=== PATIENT | male | born 1965 | race Caucasian/White ===

== ENCOUNTER 2017-06-07 05:24 | Emergency (ER) | payer OTHER ==
[~2017-06-07] VITALS: Ht 175.3 cm; Wt 94.8 kg
[~2017-06-07 05:24] MED LIST: ALBUTEROL SULF8.5 GM INH; ASPIRIN EC81 MG PO; CARVEDILOL12.5 MG; CARVEDILOL6.25 MG PO; COZAAR50 MG PO; HYDRALAZINE HCL10 MG; HYDROCHLOROTH12.5 M1 PO; IBUPROFEN400 MG PO; LISINOPRIL-HCT1 EACH PO; LISINOPRIL40 MG; LISINOPRIL5 MG PO; NORCO 5-325 TA1 EACH PO; NORVASC2.5 MG PO; OMEPRAZOLE20 MG PO; PREDNISONE20 MG PO; SPIRONOLACTONE50 MG PO; TESSALON PERLE100 MG PO
[2017-06-07] MEDS ORDERED: COZAAR50 MG PO (05:44)
[2017-06-07] MEDS ORDERED: NORVASC5 MG PO (05:45)
[2017-06-07] MEDS ORDERED: OMEPRAZOLE20 MG PO (05:46)
[2017-06-07] MEDS ORDERED: CARVEDILOL12.5 MG PO (05:46)
[2017-06-07] MEDS ORDERED: HYDRALAZINE HCL25 MG PO (05:46)
--- NOTE | 2017-06-07 12:35 | EKG ---
[facility] [address] [facility] [place] [address] Signed Normal sinus rhythm Left axis deviation Possible Anterior infarct , age undetermined Abnormal ECG No previous ECGs available Confirmed by KRISHNA SALOMON MD ([id number]) on 06/07/2017 12:35:50 PM Electronically Signed By: KRISHNA SALOMON MD 06/07/17 1235 PATIENT NAME: ALINE DUKE RO Electrocardiogram DATE OF : 61 PHYSICIAN: KRISHNA SALOMON MD REPORT #: [id number] REPORT IS CONFIDENTIAL AND NOT TO BE RELEASED WITHOUT AUTHORIZATION
== END 2017-06-07 07:57 | disposition home or self-care (01) ==
LOC: ED 05:24
DX: R55 Syncope and collapse (principal); R42 Dizziness and giddiness; F10.20 Alcohol dependence, uncomplicated; I10 Essential (primary) hypertension; Z87.891 Personal history of nicotine dependence; Z79.899 Other long term (current) drug therapy
CPT/HCPCS: 70450; 80053; 84484; 85025; 93005; 93010; 99284; G0480

== ENCOUNTER 2017-10-08 12:19 | Emergency (ER) | payer OTHER ==
[~2017-10-08] VITALS: Ht 175.3 cm; Wt 93.4 kg
[~2017-10-08 12:19] MED LIST changes: +CARVEDILOL12.5 MG PO; +HYDRALAZINE HCL25 MG PO; +NORVASC5 MG PO
[2017-10-08] MEDS ORDERED: KETOROLAC TROME10 MG PO (13:34)
== END 2017-10-08 13:51 | disposition home or self-care (01) ==
LOC: ED 12:19
DX: S63.91XA Sprain of unspecified part of right wrist and hand, initial encounter (principal); I10 Essential (primary) hypertension; Z86.73 Personal history of transient ischemic attack (TIA), and cerebral infarction without residual deficits; Z79.899 Other long term (current) drug therapy; W01.0XXA Fall on same level from slipping, tripping and stumbling without subsequent striking against object, initial encounter
CPT/HCPCS: 73130; 99283

== ENCOUNTER → 2018-11-02 | Emergency (ER) | payer OTHER ==
[~2018-11-02] VITALS: Ht 175.3 cm; Wt 86.2 kg
[~2018-11-02] MED LIST changes: +KETOROLAC TROME10 MG PO
--- NOTE | 2018-11-02 18:38 | EKG ---
[facility] [address] [facility] [place] [address] Signed Atrial fibrillation with rapid ventricular response Left axis deviation Anterior infarct (cited on or before 07-JUN-2017) Abnormal ECG When compared with ECG of 07-JUN-2017 05:40, Atrial fibrillation has replaced Sinus rhythm Vent. rate has increased BY 92 BPM Questionable change in initial forces of Anterior leads Nonspecific T wave abnormality, worse in Lateral leads Confirmed by DAVID GARCIA MD ([id number]) on 11/02/2018 6:38:13 PM Electronically Signed By: DAVID GARCIA MD 11/02/18 1838 PATIENT NAME: ALINE DUKE Electrocardiogram DATE OF : 61 PHYSICIAN: DAVID GARCIA MD REPORT #: [id number] REPORT IS CONFIDENTIAL AND NOT TO BE RELEASED WITHOUT AUTHORIZATION
--- NOTE | 2018-11-02 18:38 | EKG ---
[facility] [address] [facility] [place] [address] Signed Atrial fibrillation with rapid ventricular response Left axis deviation Anterior infarct (cited on or before 07-JUN-2017) T wave abnormality, consider lateral ischemia Abnormal ECG When compared with ECG of 02-NOV-2018 08:11, (Unconfirmed) Nonspecific T wave abnormality now evident in Inferior leads T wave inversion now evident in Anterior leads Confirmed by DAVID GARCIA MD ([id number]) on 11/02/2018 6:38:27 PM Electronically Signed By: DAVID GARCIA MD 11/02/18 1838 PATIENT NAME: ALINE DUKE Electrocardiogram DATE OF : 61 PHYSICIAN: DAVID GARCIA MD REPORT #: [id number] REPORT IS CONFIDENTIAL AND NOT TO BE RELEASED WITHOUT AUTHORIZATION
== END ==
LOC: ED 07:58
DX: I48.91 Unspecified atrial fibrillation (principal); I10 Essential (primary) hypertension; Z86.73 Personal history of transient ischemic attack (TIA), and cerebral infarction without residual deficits; Z79.899 Other long term (current) drug therapy
CPT/HCPCS: 71045; 71260; 74177; 76705; 80053; 81001; 83735; 83880; 84484; 85025; 85379; 93005; 93010; 96361; 99285-25; J2270; J3475; J7120; Q9967

== ENCOUNTER 2018-11-24 17:34 | Emergency (ER) | payer OTHER ==
[~2018-11-24] VITALS: Ht 175.3 cm; Wt 77.1 kg
--- OUTSIDE RECORDS SUMMARY | ~2018-11-24 | XMS | Encounter Summary ---
Demographics + + + | Address | [address] | | | [place] [address] | + + + | Home Phone | | + + + | Preferred Language | Unknown | + + + | Marital Status | Unknown | + + + | Sikhism Affiliation | Unknown | + + + | Race | Unknown | + + + | Ethnic Group | Unknown | + + + Author + + + | Author | [employer] [facility] | + + + | Organization | [facility] | + + + | Address | Unknown | + + + | Phone | Unavailable | + + + Support + + +---------+ + | Name | Relationship | Address | Phone | + + +---------+ + | Message,Detailed | ECON | Unknown | | + + +---------+ + | Taurus Salinas | ECON | Unknown | | + + +---------+ + Care Team Providers + +------+ + | Care Engineering Lab Technician Name | Role | Phone | + +------+ + | Daisy Jane PA-C | PCP | | + +------+ + Reason for Visit +--------+ + | Reason | Comments | +--------+ + | Other | PCP chart notes | +--------+ + Encounter Details +--------+ + + + + | Date | Type | Department | Care Team | Description | +--------+ + + + + | 11/18/ | Documentati | [facility] | Ata Adriane | Other (PCP chart | | 2019 | on Only | Sonu Jules CMA | notes) | | | | [address] | | | | | | [place] | | | | | | [address] | | | | | | [phone] | | | +--------+ + + + + Social History + +-------+ +--------+ + | Tobacco Use | Types | Packs/Day | Years | Date | | | | | Used | | + +-------+ +--------+ + | Former Smoker | | | | Quit: 06/01/2010 | + +-------+ +--------+ + + +---+---+---+ | Smokeless Tobacco: | | | | | Never Used | | | | + +---+---+---+ + + +---------+ + | Alcohol Use | Drinks/We | oz/Week | Comments | | | ek | | | + + +---------+ + | Yes | | | whisky 5th daily | + + +---------+ + + + + | Sex Assigned at | Date Recorded | | | | + + + | Not on file | | + + + as of this encounter Plan of Treatment +--------+---------+ + + + | Date | Type | Specialty | Care Team | Description | +--------+---------+ + + + | 12/25/ | Office | Cardiology | Gabe Conrad, | | | 2019 | Visit | | MD Carla Nichols | | | | | | Dr [place], | | | | | | [place] [address] | | | | | | [phone] | | | | | | | | +--------+---------+ + + + as of this encounter Visit Diagnoses Not on filein this encounter"
--- OUTSIDE RECORDS SUMMARY | ~2018-11-24 | XMS | Encounter Summary ---
Demographics + + + | Address | [address] | | | [place] [address] | + + + | Home Phone | | + + + | Preferred Language | Unknown | + + + | Marital Status | Unknown | + + + | Jainism Affiliation | Unknown | + + + | Race | Unknown | + + + | Ethnic Group | Unknown | + + + Author + + + | Author | [employer] [facility] | + + + | Organization | [facility] | + + + | Address | [...] Team Providers + +------+ + | Care African Studies Professor Name | Role | Phone | + [...] [place] | | | | | | [address] | | | | | | [phone] | | | +--------+ + + + [...] [place], | | | | | | [place] [address] | | | | | | [phone] | | | | | | | | +--------+---------+ + + + as of this encounter Visit Diagnoses Not on filein this encounter"
--- OUTSIDE RECORDS SUMMARY | ~2018-11-24 | XMS | Encounter Summary ---
Demographics + + + | Address | [address] | | | [place] [address] | + + + | Home Phone | | + + + | Preferred Language | Unknown | + + + | Marital Status | Unknown | + + + | Mandaeism Affiliation | Unknown | + + + | Race | Unknown | + + + | Ethnic Group | Unknown | + + + Author + + + | Author | [facility] | + + + | Organization | [facility] | + + + | Address | [...] Team Providers + +------+ + | Care Sales Representative Leather Goods Name | Role | Phone | + +------+ + | Mykel Hernandez DO | PCP | | + +------+ + Reason for Referral Consult and Treat (Routine) + + + + + + + | Status | Reason | Specialty | Diagnoses / | Referred By | Referred To | | | | | Procedures | Contact | Contact | + + + + + + + | Authorized | Specialty | Cardiology | Diagnoses | Maddie, | [facility] | | | Services | | Cardiogenic | Betty Greenwood MD | MD Gabe | | | Required | | shock (HCC) | [address] | [address] | | | | | [address] | Dr [address]awad [address] | | | | | | [place], [place] | [place], [place] | | | | | | [address] | [address] Phone: | | | | | | Phone: | [phone] | | | | | | [phone] | Fax: | | | | | | Fax: | [phone] | | | | | | [phone] | | + + + + + + + Reason for Visit Auth/Cert +--------+--------+ + + + + | Status | Reason | Specialty | Diagnoses / | Referred By | Referred To | | | | | Procedures | Contact | Contact | +--------+--------+ + + + + | | | Intensive | Diagnoses | | [facility] | | | | Care | Cardiogenic | | [place] | | | | | shock | | [facility] [address] | | | | | | | [place], [place] | | | | | | | [address] Phone: | | | | | | | [phone] | | | | | | | Fax: | | | | | | | [phone] | +--------+--------+ + + + + Encounter Details +--------+ + + + + | Date | Type | Department | Care Team | Description | +--------+ + + + + | 11/03/ | Hospital | [facility] | Dony Verma MD | Cardiogenic shock | | 2019 - | Encounter | [facility] | [address] | ([facility]) (Primary Dx) | | | | [address] | [place] [address] | | | 11/07/ | | [address] | [phone] | | | 2019 | | [place] [address] | | | | | | [phone] | Betty Perkins MD | | | | | | [address] | | | | | | [place] [address] | | | | | | [phone] | | | | | | | [...] + + + as of this encounter Last Filed Vital Signs + + + + | Vital Sign | Reading | Time Taken | + + + + | Blood Pressure | 129/98 | 11/07/2018 11:15 AM PST | + + + + | Pulse | 100 | 11/07/2018 11:15 AM PST | + + + + | Temperature | 37 C (98.6 F) | 11/07/2018 11:15 AM PST | + + + + | Respiratory Rate | 18 | 11/07/2018 11:15 AM PST | + + + + | Oxygen Saturation | 95% | 11/07/2018 11:15 AM PST | + + + + | Inhaled Oxygen | - | - | | Concentration | | | + + + + | Weight | 90.8 kg (200 lb 1.6 | 11/05/2018 2:10 PM PST | | | oz) | | + + + + | Height | 175.3 cm (5' 9") | 11/05/2018 2:10 PM PST | + + + + | Body Mass Index | 29.55 | 11/05/2018 2:10 PM PST | + + + + in this encounter Discharge Summaries Betty Perkins MD - 11/07/2018 5:19 AM PSTFormatting of this note may be different from the original. [facility] Service: Hospitalist Physician Discharge Summary Patient ID: [...] Hospital Course: From HPI Per ICU Ellie MCBRIDEP 11/03/18 The patient is a 53 y.o.malewith significant past medical history of COPD, HTN, CVA, al cohol abuse (historically, was drinking a fifth of hard liquor per day, but [facility] docum entation indicates he quit years ago),and methamphetamine abusewho presents in transfer from [facility] where he was being treated for new onset atrial fibrillation andcardiogeni c shock. He originally presented to the hospital in [place] after waking up on the morni ng of 11/02 with severe epigastric pain radiating up his chest. He c/o nausea, but denied vo miting. In [place], he was found to be in Afib with RVR, and was given a cardizem bolus. Troponin was minimally elevated at this time, and he was hemodynamically stable. He was transferred to [facility] in [place] due to the need for cardiology consult. His epig astric pain had resolved at that time, and patient's rate was controlled but remained in atr ial fib. After transfer to [facility], patient remained on the cardizem drip. A [...] not previously known. Cardiogenic shock, developed at [facility] on the afternoon of 11/03/18 after being on Cardizem. Patient had to be briefly paced due t o symptomatic bradycardia with rate down to the 30s. Patient was started on dopamine, nore pinephrine, and later added epinephrine. The thread singer service at [facility] was consulted, and the patient was transferred [...] have an EF of 20% while at [facility]. Echo here showed EF 20-25% -Cardiogenic shock [...] -Continue aspirin. -Lipid panel was checked at [facility] - all values normal. Essential hypertension Antihypertensives were restarted with the exception of Norvasc. Thoracic aortic aneurysm without rupture. Monitor COPD/ panlobular emphysema. - Not in acute exacerbation. - Albuterol PRN wheezing. - History of tobacco use - documentation from [facility] states he quit years ago. Epigastric pain [...] days- first dose received on 11/03 at [facility] . Procalci tonin was normal Remained afebrile. [...] lobe of the liver. Signed by: MD Jenifer, Dr. Evans Sign Date/Time: 11/04/2018 3:04 AM [...] Motor grossly intact. LABS: Recent Labs Lab 11/07/1831211/06/188 11/05/186 WBC 6.70 6.32 8.02 RBC 4.42 4.18* 4.32 HGB 14.4 13.7 14.4 HCT 44.5 41.9 43.2 MCV 100.7* 100.2* 100.0 MCH 32.5 32.7 33.3 MCHC 32.3 32.7 33.3 RDW 52.5 52.9 51.6 PLT 212 189 189 MPV 9.5 8.9 8.7 DIFFTYPE AUTOMATED AUTOMATED AUTOMATED Recent Labs Lab 11/07/1831211/06/188 11/05/18 0907 11/05/18 0416 NA 142 138 [...] 0416 MG 1.9 2.1 2.2 Invalid input(s): BEBETO Disposition: Follow up: Mykel Hernandez, [address] [place] [address] In 3 days [facility] [address] [place] [facility] [address] In 4 days Medication List START [...] Your Medications These medications were sent to [id number] - [place], [place] - [address] [id number] losartan 25 MG tablet spironolactone 25 MG tablet Betty Perkins MD 11/07/2018 1:58 PM Discharge took>30 minutes, to include final examination, discussion of admission, and pre paration of prescriptions, instructions for ongoing care, follow up and dictation of summary . in this encounter Medications at Time of Discharge + + +--------+---------+ + + | Medication | Sig. | Disp. | Refills | Start | End Date | | | | | | Date | | + + +--------+---------+ + + | aspirin 81 MG | Take 81 mg by mouth | | | | | | tablet | daily. | | | | | + + +--------+---------+ + + | | Take 3 mLs by | | | | | | ipratropium-albutero | nebulization as | | | | | | l (DUO-NEB) 0.5-2.5 | needed. | | | | | | mg/3mL | | | | | | + + +--------+---------+ + + | omeprazole | Take 20 mg by mouth | | | | | | (PRILOSEC) 20 MG EC | before breafast. | | | | | | tablet | | | | | | + + +--------+---------+ + + | spironolactone | Take 1 tablet by | 30 | 11 | 11/09/19 | | | (ALDACTONE) 25 MG | mouth daily. | tablet | | 19 | 0 | | tablet | | | | | | + + +--------+---------+ + + | carvedilol (COREG) | Take 12.5 mg by | | | | | | 25 MG tablet | mouth 2 (two) times | | | | 9 | | | daily with meals. | | | | | + + +--------+---------+ + + | losartan (COZAAR) | Take 1 tablet by | 30 | 11 | 11/08/19 | | | 25 MG tablet | mouth daily. | tablet | | 19 | 9 | + + +--------+---------+ + + as of this encounter Progress Notes Samm Auguste RN - 11/07/2018 2:24 PM PSTDC instructions discussed with Pt, with empasis on drug/ETOH cessation and cardiology follow up. PICC line DC'd. Pt waiting for ride home. P t will be transported by friend. JASON BANKS Ken, RN - 11/06/2018 6:44 PM PSTPt disappointed that he wasn't DC'd today. Pt stat ed that he was leaving tomorrow regardless. ordered an Echo today, but small engine technician's sched ule was full, and was unable to see Pt today. They said that they would try to see Pt in a. m. No acute changes in Pt's status today. Chart check done. JASON BANKS Dawn M, MD - 11/06/2018 5:33 AM PSTFormatting of this note may be different from the original. [facility] Service: Hospitalist Progress Note Hospital Day: LOS: 3 days SUBJECTIVE Patient Summary: From HPI Per ICU Ellie Ky WILLEM 11/03/18 The patient is a 53 y.o. male with significant past medical history of COPD, HTN, CVA, alco hol abuse (historically, was drinking a fifth of hard liquor per day, but [facility] documen tation indicates he quit years ago), and methamphetamine abuse who presents in transfer from [facility] where he was being treated for new onset atrial fibrillation and cardiogenic ирина ck. He originally presented to the hospital in [place] after waking up on the morning of 11/02 with severe epigastric pain radiating up his chest. He c/o nausea, but denied vomiting. In [place], he was found to be in Afib with RVR, and was given a cardizem bolus. Tropon in was minimally elevated at this time, and he was hemodynamically stable. He was transferr ed to [facility] in [place] due to the need for cardiology consult. His epigastric pain had resolved at that time, and patient's rate was controlled but remained in atrial fib. After transfer to [facility], patient remained on the cardizem drip. A [...] not previously known. Cardiogenic shock, developed at [facility] on t he afternoon of 11/03/18 after being on Cardizem. Patient had to be briefly paced due to symp tomatic bradycardia with rate down to the 30s. Patient was started on dopamine, norepinephr ine, and later added epinephrine. The thread singer service at [facility] was consulted, and the patient was transferred [...] and vitals reviewed. DATA Recent Labs Lab 11/06/1840711/05/186 11/04/18 0410 WBC 6.32 8.02 12.24* RBC 4.18* 4.32 4.57 HGB 13.7 14.4 14.9 HCT 41.9 43.2 45.9 MCV 100.2* 100.0 100.4* MCH 32.7 33.3 32.7 MCHC 32.7 33.3 32.5 RDW 52.9 51.6 53.8* PLT 189 189 245 MPV 8.9 8.7 9.0 DIFFTYPE AUTOMATED AUTOMATED AUTOMATED Recent Labs Lab 11/06/1840711/05/18 0907 11/05/1841511/04/18 0410 NA 138 -- 138 137 K [...] CKMBINDEX 6.8 7.2 7.5 Recent Labs Lab 11/06/1840711/05/18 0416 11/04/18 0410 PHOS 3.1 3.4 5.7* Recent Labs Lab 11/06/1840711/05/18 0416 11/04/18 0743 MG 2.1 2.2 2.4 [...] lobe of the liver. Signed by: MD Jenifer, Dr. Evans Sign Date/Time: 11/04/2018 3:04 AM [...] have an EF of 20% while at [facility], so Cardizem was stopped. -Cardiogenic shock - developed in the setting of calcium channel jenise use in pt with unr ecognized cardiomyopathy. Resolved. -Weaned off epinephrine and levophed on 11/04. -Patient was intubated for airway protection in the setting of cardiogenic shock. Extubate d on 11/04. Cardiac Diet Coronary artery disease. -Continue aspirin. -Lipid panel was checked at [facility] - all values normal. Essential hypertension Antihypertensives were restarted - amlodipine, carvedilol, losartan. Thoracic aortic aneurysm without rupture. Monitor COPD/ panlobular emphysema. - Not in acute exacerbation. - Albuterol PRN wheezing. - History of tobacco use - documentation from [facility] states he quit years ago. Epigastric pain [...] - first dose received on 11/03 at [facility] - stop date 11/07. Procalcit onin was slightly elevated, will recheck Remains afebrile. Recheck Chest xray Blood cultures in process--showing no growth. Disposition: Code Status: Full Code Betty Perkins MD 11/06/2018 5:33 AM Betty Perkins MD - 11/05/2018 8:55 AM PSTFormatting of this note may be different from the original. [facility] Service: Hospitalist Progress Note Hospital Day: LOS: 2 days SUBJECTIVE Patient Summary: From HPI Per ICU Ellie Mcpherson WILLEM 11/03/18 The patient is a 53 y.o. male with significant past medical history of COPD, HTN, CVA, alco hol abuse (historically, was drinking a fifth of hard liquor per day, but [facility] documen tation indicates he quit years ago), and methamphetamine abuse who presents in transfer from [facility] where he was being treated for new onset atrial fibrillation and cardiogenic ирина ck. He originally presented to the hospital in [place] after waking up on the morning of 11/02 with severe epigastric pain radiating up his chest. He c/o nausea, but denied vomiting. In [place], he was found to be in Afib with RVR, and was given a cardizem bolus. Tropon in was minimally elevated at this time, and he was hemodynamically stable. He was transferr ed to [facility] in [place] due to the need for cardiology consult. His epigastric pain had resolved at that time, and patient's rate was controlled but remained in atrial fib. After transfer to [facility], patient remained on the cardizem drip. A [...] not previously known. Cardiogenic shock, developed at [facility] on t afternoon of 11/03/18 after being on Cardizem. Patient had to be briefly paced due to symp tomatic bradycardia with rate down to the 30s. Patient was started on dopamine, norepinephr ine, and later added epinephrine. The thread singer service at [facility] was consulted, and the patient was transferred [...] C) - 110 21 92 % - 11/04/182029 - 98.1 F (36.7 C) - 123 19 95 % - 11/04/181999 (!) 148/121 97.9 F (36.6 C) Bladder 116 23 95 % - 11/04/18 1945 (!) 121/97 97.7 F (36.5 C) - [...] DIFFTYPE AUTOMATED AUTOMATED Recent Labs Lab 11/05/18 0416 11/04/18 0410 11/04/18 0112 NA 138 137 138 [...] 0410 PHOS 3.4 5.7* Recent Labs Lab 11/05/18 0416 11/04/18 0743 11/04/18 0410 MG 2.2 2.4 [...] lobe of the liver. Signed by: MD Jenifer, Dr. Evans Sign Date/Time: 11/04/2018 3:04 AM [...] an EF of 20% whil e at [facility], so Cardizem was stopped. Cardiogenic shock - developed in the setting of calcium channel jenise use in pt with u nrecognized cardiomyopathy. Resolving. Weaned off epinephrine and levophed on 11/04. Coronary artery disease. Continue aspirin. Lipid panel was checked at [facility] - all values normal. Essential hypertension. Antihypertensives were restarted - amlodipine, carvedilol, losa rtan. Thoracic aortic aneurysm without rupture. PULM: Patient was intubated for airway protection in the setting of cardiogenic shock. Extuba rao on 11/04. COPD/ panlobular emphysema. Albuterol PRN wheezing. History of tobacco use - documentation from [facility] states he quit years ago. GI/NUTRITION: Epigastric [...] first dose receive d on 11/03 at [facility] - stop date 11/07. Procalcitonin slightly elevated. Remains afebrile. Blood cultures in process. HEME: No anemia or thrombocytopenia. CBC daily. ENDO: TSH normal at [facility]. Implement Endotool if indicated per ICU protocol. MUSC/SKIN: PT/OT/mobilize patient as able. Skin care and pressure ulcer prevention per nursing standards. PROPHYLAXIS: Stress ulcer prophylaxis: no longer indicated DVT prophylaxis: enoxaparin, SCDs VAP bundle: no longer indicated Disposition: ICU plan of care as above. Disposition: Code Status: Full Code Betty Perkins MD 11/05/2018 8:55 AM Ellie Mcpherson, [facility] - 11/05/2018 1:06 AM PSTFormatting of this note may be differen t from the original. [facility] Estate Conservator Service Progress Note Taurus Domínguez 53 y.o. [...] fifth of hard liquor per day, but [facility] documen tation indicates he quit years ago), and methamphetamine abuse who presents in transfer from [facility] where he was being treated for new onset atrial fibrillation and cardiogenic ирина ck. He originally presented to the hospital in [place] after waking up on the morning of 11/02 with severe epigastric pain radiating up his chest. He c/o nausea, but denied vomiting. In [place], he was found to be in Afib with RVR, and was given a cardizem bolus. Tropon in was minimally elevated at this time, and he was hemodynamically stable. He was transferr ed to [facility] in [place] due to the need for cardiology consult. His epigastric pain had resolved at that time, and patient's rate was controlled but remained in atrial fib. After transfer to [facility], patient remained on the cardizem drip. A [...] not previously known. Cardiogenic shock, developed at [facility] on t afternoon of 11/03/18 after being on Cardizem. Patient had to be briefly paced due to symp tomatic bradycardia with rate down to the 30s. Patient was started on dopamine, norepinephr ine, and later added epinephrine. The thread singer service at [facility] was consulted, and the patient was transferred to our ICU for further management. ICU Timeline: 11/04: Pt admitted in transfer from [facility], in cardiogenic shock. Pressors weaned th roughout [...] Intake/Output Summary (Last 24 hours) at 11/05/18 0633 Last data filed at 11/05/18 0617 Gross [...] heels LINES/TUBES: RUE PICC line (11/03 at [facility]), PIVs DATA Recent Labs Lab 11/05/1841511/04/18409 WBC 8.02 12.24* RBC 4.32 4.57 HGB 14.4 14.9 HCT 43.2 45.9 MCV 100.0 100.4* MCH 33.3 32.7 MCHC 33.3 32.5 RDW 51.6 53.8* PLT 189 245 MPV 8.7 9.0 NEUTROABS 5.79 10.14* LYMPHSABS 1.17 0.86* MONOSABS 0.98* 1.19* BASOSABS 0.03 0.04 EOSABS 0.05 0.01 Recent Labs Lab 11/05/18 0416 11/04/18 0743 11/04/18 04111/04/18 0112 NA 138 -- 137 138 K [...] lobe of the liver. Signed by: MD Jenifer, Dr. Evans Sign Date/Time: 11/04/2018 3:04 AM [...] on presentation and mi ld troponin elevation. ? Remains in atrial fib, rate-controlled. Denies chest pain. ? Troponin trending down - likely elevated due to demand ischemia. ? Determine plan for long-term anticoagulation. Check liver function first. ? Consultation to cardiology. Will need repeat echo. Cardiomyopathy - appears to be a new diagnosis. Patient found to have an EF of 20% whil e at [facility], so Cardizem was stopped. Cardiogenic shock - developed in the setting of calcium channel jenise use in pt with u nrecognized cardiomyopathy. Resolving. Weaned off epinephrine and levophed on 11/04. Coronary artery disease. ? Continue aspirin. ? Lipid panel was checked at [facility] - all values normal. Essential hypertension. Antihypertensives were restarted - amlodipine, carvedilol, losa rtan. Thoracic aortic aneurysm without rupture. PULM: Patient was intubated for airway protection in the setting of cardiogenic shock. Extuba rao on 11/04. COPD/ panlobular emphysema. Albuterol PRN wheezing. History of tobacco use - documentation from [facility] states he quit years ago. GI/NUTRITION: Epigastric [...] first dose receive d on 11/03 at [facility] - stop date 11/07. Procalcitonin slightly elevated. Remains afebrile. Blood cultures in process. HEME: No anemia or thrombocytopenia. CBC daily. ENDO: TSH normal at [facility]. Implement Endotool if indicated per ICU protocol. MUSC/SKIN: PT/OT/mobilize patient as able. Skin care and pressure ulcer prevention per nursing standards. PROPHYLAXIS: Stress ulcer prophylaxis: no longer indicated DVT prophylaxis: enoxaparin, SCDs VAP bundle: no longer indicated Disposition: ICU plan of care as above. Code Status: Full Code *Please bill 45 minutes of critical care time spent evaluating the patient, reviewing the d deobrah and formulating a plan exclusive of all other procedures. Ellie Mcpherson, WILLEM 11/05/2018 Abigail Menjivar, DATA WAREHOUSING ARCHITECT - 11/04/2018 11:53 AM PSTPt alert and following commands prior to ext ubation. Passed SBT 06/07 .30, VC 1120 as well as leak test. Extubated to RA at 1128, tolerat ed well. Pt was able to say his name and no evidence of stridor post extubation.in this enco unter Plan of Treatment +--------+---------+ + + + | Date | Type | Specialty | Care Team | Description | +--------+---------+ + + + | 12/25/ | Office | Cardiology | Deepara Jensonia, | | | 2018 | Visit | | MD Carla Nichols | | | | | | Dr [address], | | | | | | [place] [address] | | | | | | [phone] | | | | | | | | +--------+---------+ + + + + +--------+ + + | Name | Priori | Associated Diagnoses | Order Schedule | | | ty | | | + +--------+ + + | Ambulatory referral to Cardiology | Routin | Cardiogenic shock | Ordered: 11/07/2018 | | | e | ([facility]) | | + +--------+ + + as of this encounter Procedures + +--------+ + + + | Procedure Name | Priori | Date/Time | Associated Diagnosis | Comments | | | ty | | | | + +--------+ + + + | ECHO CARDIAC ADULT | Routin | 11/07/2018 | | Results for this | | COMPLETE | e | 9:35 AM | | procedure are in the | | | | PST | | results section. | + +--------+ + + + | PROCALCITONIN | [facility] | 11/07/2018 | | Results for this | | | | 3:13 AM | | procedure are in the | | | | PST | | results section. | + +--------+ + + + | CBC W/AUTO DIFF | Routin | 11/07/2018 | | Results for this | | (REFLEX TO MANUAL) | e | 3:13 AM | | procedure are in the | | | | PST | | results section. | + +--------+ + + + | PHOSPHOROUS | [facility] | 11/07/2018 | | Results for this | | | | 3:13 AM | | procedure are in the | | | | PST | | results section. | + +--------+ + + + | MAGNESIUM | [facility] | 11/07/2018 | | Results for this | | | | 3:13 AM | | procedure are in the | | | | PST | | results section. | + +--------+ + + + | BASIC METABOLIC | [facility] | 11/07/2018 | | Results for this | | PANEL | | 3:13 AM | | procedure are in the | | | | PST | | results section. | + +--------+ + + + | EKG STANDARD 12 LEAD | Routin | 11/06/2018 | [...] + +--------+ + + + | CBC W/AUTO DIFF | Routin | 11/06/2018 | | Results for this | | (REFLEX TO MANUAL) | e | 4:08 AM | | procedure are in the | | | | PST | | results section. | + +--------+ + + + | PHOSPHOROUS | Routin | 11/06/2018 | | Results [...] | + +--------+ + + + | PROTIME-INR | Routin | 11/05/2018 | | Results for this | | | e | 9:07 AM | | procedure are in the | | | | PST | | results section. | + +--------+ + + + | POTASSIUM | STAT | 11/05/2018 | | Results for this | | | | 9:07 AM | | procedure are in the | | | | PST | | results section. | + +--------+ + + + | CBC W/AUTO DIFF | Routin | 11/05/2018 | | Results for this | | (REFLEX TO MANUAL) | e | 4:16 AM | | procedure are in the | | | | PST | | results section. | + +--------+ + + + | PHOSPHOROUS | Routin | 11/05/2018 | | Results [...] this | | METABOLIC PANEL | e - AM | 4:16 AM | | procedure are in the | | | | PST | | results section. | + +--------+ + + + | CK MB | Timed | 11/04/2018 | | Results for this | | | | 2:08 PM | | procedure are in the | | | | PST | | results section. | + +--------+ + + + | TROPONIN I | Timed | 11/04/2018 | | Results for this | | | | 2:08 PM | | procedure are in the | | | | PST | | results section. | + +--------+ + + + | CK | Timed | 11/04/2018 | | Results for this | | | | 2:08 PM | | procedure are in the | | | | PST | | results section. | + +--------+ + + + | CK MB | Timed | 11/04/2018 | | Results for this | | | | 7:43 AM | | procedure are in the | | | | PST | | results section. | + +--------+ + + + | TROPONIN I | Timed | 11/04/2018 | | Results for this | | | | 7:43 AM | | procedure are in the | | | | PST | | results section. | + +--------+ + + + | MAGNESIUM | STAT | 11/04/2018 | | Results for this | | | | 7:43 AM | | procedure are in the | | | | PST | | results section. | + +--------+ + + + | CK | Timed | 11/04/2018 | | Results for this | | | | 7:43 AM | | procedure are in the | | | | PST | | results section. | + +--------+ + + + | PROCALCITONIN | Routin | 11/04/2018 | | Results for this | | | e - AM | 4:10 AM | | procedure are in the | | | | PST | | results section. | + +--------+ + + + | CBC W/AUTO DIFF | Routin | 11/04/2018 | | Results for this | | (REFLEX TO MANUAL) | e | 4:10 AM | | procedure are in the | | | | PST | | results section. | + +--------+ + + + | PHOSPHOROUS | [facility] | 11/04/2018 | | Results for this | | | | 4:10 AM | | procedure are in the | | | | PST | | results section. | + +--------+ + + + | MAGNESIUM | [facility] | 11/04/2018 | | Results for this | | | | 4:10 AM | | procedure are in the | | | | PST | | results section. | + +--------+ + + + | BASIC METABOLIC | [facility] | 11/04/2018 | | Results for this | | PANEL | | 4:10 AM | | procedure are [...] + | XR CHEST 1 VIEW | STAT | 11/04/2018 | | Results for this | | | | 1:36 AM | | procedure are in the | | | | PST | | results section. | + +--------+ + + + | BLOOD CULTURE, SET 2 | STAT | 11/04/2018 | | Results for this | | | | 1:13 AM | | procedure are in the | | | | PST | | results section. | + +--------+ + + + | CK MB | [facility] | 11/04/2018 | | Results for this | | | | 1:12 AM | | procedure are in the | | | | PST | | results section. | + +--------+ + + + | TROPONIN I | [facility] | 11/04/2018 | | Results for this | | | | 1:12 AM | | procedure are in the | | | | PST | | results section. | + +--------+ + + + | BLOOD CULTURE, SET 1 | STAT | 11/04/2018 | | Results for this | | | | 1:12 AM | | procedure are in the | | | | PST | | results section. | + +--------+ + + + | LIPASE | [facility] | 11/04/2018 | | Results for this | | | | 1:12 AM | | procedure are in the | | | | PST | | results section. | + +--------+ + + + | LACTIC ACID, PLASMA | [facility] | 11/04/2018 | | Results for this | | | | 1:12 AM | | procedure are in the | | | | PST | | results section. | + +--------+ + + + | CK | [facility] | 11/04/2018 | | Results for this | | | | 1:12 AM | | procedure are in the | | | | PST | | results section. | + +--------+ + + + | AMYLASE | [facility] | 11/04/2018 | | Results for this | | | | 1:12 AM | | procedure are in the | | | | PST | | results section. | + +--------+ + + + | BASIC METABOLIC | [facility] | 11/04/2018 | | Results for this | | PANEL | | 1:12 AM | | procedure are in the | | | | PST | | results section. | + +--------+ + + + | MRSA BY PCR | Routin | 11/04/2018 | | Results for this | | | e | 12:13 AM | | procedure are in the | | | | PST | | results section. | + +--------+ + + + | POC ARTERIAL BLOOD | Routin | 11/03/2018 | | Results for this | | GAS | e | 11:43 PM | | procedure are in the | | | | PST | | results section. | + +--------+ + + + | POCT GLUCOSE | Routin | 11/03/2018 | | Results for this | | | e | 11:11 PM | | procedure are in the | | | | PST | | results section. | + +--------+ + + + in this encounter Results Echo cardiac adult complete (11/07/2018 9:35 AM) + +---------+ + + | Component | Value | Ref Range | Performed At | + +---------+ + + | LV EF | 25 (LL) | 50 - 70 % | [facility] | | | | | RADIOLOGY | + +---------+ + + + + + | Impressions | Performed At | + + + | 1. The left ventricle is normal in size, mild concentric hypertrophy | [facility] | | and severely impaired systolic function EF 20-25%. 2. The right | RADIOLOGY | | ventricle is severely enlarged with severely impaired systolic | | | function. 3. Moderate tricuspid regurgitation with mild pulmonary | | | hypertension RVSP 41 mmHg. 4. There is no pericardial effusion. | | + + + + + + | Narrative | Performed At | + + + | Patient Name: Taurus Domínguez Date of : 1965 | [facility] | | Performing Physician: Gabe Conrad | RADIOLOGY | | | | | INDICATIONS cariomyopathy [...] is no evidence of aortic | | | stenosis. Mitral Valve: The mitral valve is normal. Mitral Valve: | | | Moderate mitral regurgitation is present. Tricuspid Valve: The | | | tricuspid valve appears structurally normal. Tricuspid Valve: | | | Moderate tricuspid regurgitation present. Tricuspid Valve: There is | | | mild pulmonary hypertension. Tricuspid Valve: The right ventricular | | | systolic pressure (pulmonary artery systolic pressure), as measured by | | | Doppler, is 41.57mmHg. Pulmonic Valve: The pulmonic valve is normal. | | | Pericardium: There is no pericardial effusion. Pericardium: No | | | pleural effusion seen. Pericardium: small ascites noted. | | | IVC/Hepatic Veins: The IVC is dilated (>2.5cm) and does not | | | collapse with sniff, consistent with central venous pressures of | | | >20mmHg. 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 General | | | comments: Nurse was notified by phone. MEASUREMENTS | | | RA Area: 36.08 cm2 Ao asc: 4.20 cm Ao | | | sinus: 5.28 cm IVC: 2.92 cm EDV(Teich): 156.42 ml | | | IVSd: 1.13 cm LVIDd: 5.64 cm LVPWd: 1.19 cm LVOT | | | Diam: 2.35 cm %FS: 10.56 % EF(Teich): 22.74 % | | | ESV(Teich): 120.85 ml IVSs: 1.27 cm LVIDs: 5.04 cm | | | LVPWs: 1.29 cm SV(Teich): 35.57 ml RA Major: 7.26 cm | | | RVIDd: 5.03 cm LVEF MOD A2C: 19.29 % SV MOD A2C: 30.52 | | | ml LVEF MOD A4C: 27.94 % SV MOD A4C: 42.39 ml EF | | | Biplane: 24.44 % LVEDV MOD BP: 156.94 ml LVESV MOD BP: | | | 118.58 ml LVEDV MOD A2C: 158.17 ml LVLd A2C: 9.07 cm LVEDV | | | MOD A4C: 151.68 ml LVLd A4C: 9.34 cm LVESV MOD A2C: | | | 127.65 ml LVLs A2C: 8.63 cm LVESV MOD A4C: 109.29 ml LVLs | | | A4C: 8.85 cm LAESV(A-L): 122.90 ml LAESV Index (A-L): | | | 59.37 ml/m2 LAAs A2C: 32.31 cm2 LAESV A-L A2C: 132.42 ml | | | LALs A2C: 6.69 cm LAAs A4C: 29.99 cm2 LAESV A-L A4C: | | | 96.05 ml LALs A4C: 7.94 cm AR Dec [place]: 2.59 m/s2 AR Dec | | | Time: 1546.99 ms AR maxP.22 mmHg AR PHT: 448.62 ms | | | AR Vmax: 4.00 m/s HR: 109.18 BPM AV maxP.06 mmHg | | | AV meanP.76 mmHg AV Vmax: 1.00 m/s AV Vmean: 0.81 | | | m/s AV VTI: 21.36 cm CHAN Vmax: 2.99 cm2 CHAN (VTI): 2.00 | | | cm2 AVAI Vmax: 0.00 cm2/m2 AVAI (VTI): 0.00 cm2/m2 LVOT | | | maxP.93 mmHg LVOT meanP.13 mmHg LVSI Dopp: 20.64 | | | ml/m2 LVSV Dopp: 42.74 ml LVOT Vmax: 0.69 m/s LVOT | | | Vmean: 0.50 m/s LVOT VTI: 9.82 cm Septal e': 0.05 m/s | | | Lateral e': 0.05 m/s PAEDP: 27.48 mmHg PRend P.48 | | | mmHg PRend Vmax: 1.76 m/s HR: 91.39 BPM PV maxP.61 | | | mmHg PV meanP.33 mmHg PV Vmax: 0.39 m/s PV Vmean: | | | 0.27 m/s PV VTI: 6.61 cm RAP: 15 mmHg RVSP: 41.56 mmHg | | | TR maxP.56 mmHg TR Vmax: 2.57 m/s Ticketing Agent: MW | | | Authenticated by: Gabe Anamaria Report Date/Time: 37-2019 | | | 13:10:35 | | + + + + + | Procedure Note | + + | David Solorio In - 11/07/2018 1:21 PM PST Patient Name: Fahad Domínguez of | | : 1965Accession: [id number] Physician: Gabe | | Anamaria INDICATIONS------ | | -----cariomyopathyCONCLUSIONS 1. The left ventricle is normal in size, mild | | concentric hypertrophy and severely impaired systolic function EF 20-25%.2. The right | | ventricle is severely enlarged with severely impaired systolic function.3. Moderate | | tricuspid regurgitation with mild pulmonary hypertension RVSP 41 mmHg.4. There is no | | pericardial effusion.FINDINGS--------ECG rhythm: Atrial fibrillation.Study: A | | 2-dimensional transthoracic echocardiogram with m-mode, spectral and color flow Doppler | | was perfomed. Study: This was a technically adequate study.Left Ventricle: Overall left | | ventricular systolic function is severely impaired with, an EF between 20 - 25 %. Left | | Ventricle: The left ventricle cavity size is normal. Left Ventricle: There is mild | | concentric left ventricular hypertrophy. Left Ventricle: There is severe global | | hypokinesis of LV contractility.Right Ventricle: The right ventricle is severely | | enlarged measuring >4.1 cm. Right Ventricle: The right ventricular systolic function is | | severely impaired.Left Atrium: The left atrium is markedly dilated.Right Atrium: The | | right atrium is markedly enlarged.Aortic Valve: The aortic valve is trileaflet. Aortic | | Valve: There is mild aortic regurgitation. Aortic Valve: There is no evidence of aortic | | stenosis.Mitral Valve: The mitral valve is normal. Mitral Valve: Moderate mitral | | regurgitation is present.Tricuspid Valve: The tricuspid valve appears structurally | | normal. Tricuspid Valve: Moderate tricuspid regurgitation present. Tricuspid Valve: | | There is mild pulmonary hypertension. Tricuspid Valve: The right ventricular systolic | | pressure (pulmonary artery systolic pressure), as measured by Doppler, is | | 41.57mmHg.Pulmonic Valve: The pulmonic valve is normal.Pericardium: There is no | | pericardial effusion. Pericardium: No pleural effusion seen. Pericardium: small ascites | | noted. IVC/Hepatic Veins: The IVC is dilated (>2.5cm) and does not collapse with sniff, | | consistent with central venous pressures of >20mmHg.Aorta: The aortic root is dilated | | measuring 5.0 cm.General comments: Nurse was notified by | | phone.MEASUREMENTS RA Area: 36.08 cm2Ao asc: 4.20 cmAo sinus: 5.28 | | cmIVC: 2.92 cmEDV(Teich): 156.42 mlIVSd: 1.13 cmLVIDd: 5.64 cmLVPWd: 1.19 | | cmLVOT Diam: 2.35 cm%FS: 10.56 %EF(Teich): 22.74 %ESV(Teich): 120.85 mlIVSs: | | 1.27 cmLVIDs: 5.04 cmLVPWs: 1.29 cmSV(Teich): 35.57 mlRA Major: 7.26 cmRVIDd: | | 5.03 cmLVEF MOD A2C: 19.29 %SV MOD A2C: 30.52 mlLVEF MOD A4C: 27.94 %SV MOD A4C: | | 42.39 mlEF Biplane: 24.44 %LVEDV MOD BP: 156.94 mlLVESV MOD BP: 118.58 mlLVEDV | | MOD A2C: 158.17 mlLVLd A2C: 9.07 cmLVEDV MOD A4C: 151.68 mlLVLd A4C: 9.34 | | cmLVESV MOD A2C: 127.65 mlLVLs A2C: 8.63 cmLVESV MOD A4C: 109.29 mlLVLs A4C: | | 8.85 cmLAESV(A-L): 122.90 mlLAESV Index (A-L): 59.37 ml/m2LAAs A2C: 32.31 [id number] | | A-L A2C: 132.42 mlLALs A2C: 6.69 cmLAAs A4C: 29.99 [id number] A-L A4C: 96.05 | | mlLALs A4C: 7.94 cmAR Dec [place]: 2.59 m/s2AR Dec Time: 1546.99 msAR maxP.22 | | mmHgAR PHT: 448.62 msAR Vmax: 4.00 m/sHR: 109.18 BPMAV maxP.06 mmHgAV | | meanP.76 mmHgAV Vmax: 1.00 m/Neymar Vmean: 0.81 m/Neymar VTI: 21.36 cmAVA Vmax: | | 2.99 cm2AVA (VTI): 2.00 [id number] Vmax: 0.00 cm2/m2AVAI (VTI): 0.00 cm2/m2LVOT | | maxP.93 mmHgLVOT meanP.13 mmHgLVSI Dopp: 20.64 ml/m2LVSV Dopp: 42.74 | | mlLVOT Vmax: 0.69 m/sLVOT Vmean: 0.50 m/sLVOT VTI: 9.82 cmSeptal e': 0.05 | | m/sLateral e': 0.05 m/sPAEDP: 27.48 mmHgPRend P.48 mmHgPRend Vmax: 1.76 | | m/sHR: 91.39 BPMPV maxP.61 mmHgPV meanP.33 mmHgPV Vmax: 0.39 m/sPV | | Vmean: 0.27 m/sPV VTI: 6.61 cmRAP: 15 mmHgRVSP: 41.56 mmHgTR maxP.56 | | mmHgTR Vmax: 2.57 m/sSonographer: MWAuthenticated by: Gabe Breen | | Date/Time: 11-07-2018 13:10:35IMPRESSION:1. The left ventricle is normal in size, mild | | concentric hypertrophy and severely impaired systolic function EF 20-25%.2. The right | | ventricle is severely enlarged with severely impaired systolic function.3. Moderate | | tricuspid regurgitation with mild pulmonary hypertension RVSP 41 mmHg.4. There is no | | pericardial effusion. | |Ao sinus: 5.28 cm | |IVC: [...] |LALs A4C: 7.94 cm | |AR Dec [place]: 2.59 m/s2 | |AR Dec Time: 1546.99 [...] |TR Vmax: 2.57 m/s | | | |Ticketing Agent: MW | |Authenticated by: Gabe Conrad | |Report [...] is no pericardial effusion. | + + + + + + + | Performing | Address | City/State/Zipcode | Phone Number | | Organization | | | | + + + + + | [facility] | [address] | [facility] [place] [address] | | + + + + + Basic metabolic panel (11/07/2018 3:13 AM) + + + + + | Component | Value | Ref Range | Performed At | + + + + + | SODIUM | 142 | 135 - 145 mmol/L | [facility] | + + + + + | POTASSIUM | 4.0 | 3.5 - 4.9 mmol/L | [facility] | + + + + + | CHLORIDE | 105 | 99 - 109 mmol/L | [facility] | + + + + + | CO2 | 28 | 23 - 32 mmol/L | [facility] | + + + + + | ANION GAP AGAP | 13 | 5 - 20 mmol/L | [facility] | + + + + + | GLUCOSE | 129 (H) | 65 - 99 mg/dL | [facility] | + + + + + | BUN | 19 | 8 - 25 mg/dL | [facility] | + + + + + | CREATININE | 0.70 | 0.70 - 1.30 mg/dL | [facility] | + + + + + | BUN/CREAT | 27 | | [facility] | + + + + + | CALCIUM | 8.3 (L) | 8.5 - 10.5 mg/dL | [facility] | + + + + + | EGFR | >60Comment: GFR <60: | >60 mL/min/1.73m2 | [facility] | | | CHRONIC KIDNEY DISEASE, | | | | | IF FOUND OVER A 3 MONTH | | | | | PERIOD.GFR <15: KIDNEY | | | | | FAILURE.FOR | | | | | AMERICANS, MULTIPLY THE | | | | | CALCULATED GFR BY | | | | | 1.210.This eGFR is | | | | | calculated using the | | | | | MDRD [facility] traceable | | | | | equation.Testing | | | | | performed at [facility];[address] | | | | | [address];[place] | | | | | [address] | | | + + + + + + + | Specimen | + + | Blood | + + + + + + + | Performing | Address | City/State/Zipcode | Phone Number | | Organization | | | | + + + + + | [facility] | [address] | [place] [address] | | + + + + + Phosphorus (11/07/2018 3:13 AM) + + + + + | Component | Value | Ref Range | Performed At | + + + + + | PHOSPHORUS | 3.6Comment: Testing | 2.3 - 4.8 mg/dL | [facility] | | | performed at [facility];[address] | | | | | [address];[place] | | | | | [address] | | | + + + + + + + | Specimen | + + | Blood | + + + + + + + | Performing | Address | City/State/Zipcode | Phone Number | | Organization | | | | + + + + + | [facility] | [address] | [place] [address] | | + + + + + Magnesium (11/07/2018 3:13 AM) + + + + + | Component | Value | Ref Range | Performed At | + + + + + | MAGNESIUM | 1.9Comment: Testing | 1.7 - 2.4 mg/dL | [facility] | | | performed at [facility];[address] | | | | | [address];[place] | | | | | [address] | | | + + + + + + + | Specimen | + + | Blood | + + + + + + + | Performing | Address | City/State/Zipcode | Phone Number | | Organization | | | | + + + + + | [facility] | [address] | [place] [address] | | + + + + + CBC w/auto diff (reflex to manual) (11/07/2018 3:13 AM) + + + + + | Component | Value | Ref Range | Performed At | + + + + + | WBC | 6.70 | 3.80 - 11.00 K/uL | [facility] | | | | | [facility] | + + + + + | RBC | 4.42 | 4.20 - 5.70 M/uL | [facility] | | | | | [facility] | + + + + + | HGB | 14.4 | 13.2 - 17.0 g/dL | [facility] | | | | | [facility] | + + + + + | HCT | 44.5 | 39.0 - 50.0 % | [facility] | | | | | [facility] | + + + + + | MCV | 100.7 (H) | 80.0 - 100.0 fl | [facility] | | | | | [facility] | + + + + + | MCH | 32.5 | 27.0 - 34.0 pg | [facility] | | | | | [facility] | + + + + + | MCHC | 32.3 | 32.0 - 35.5 g/dL | [facility] | | | | | [facility] | + + + + + | RDW SD | 52.5 | 37 - 53 fl | [facility] | | | | | [facility] | + + + + + | PLT | 212 | 150 - 400 K/uL | [facility] | | | | | [facility] | + + + + + | MPV | 9.5 | fl | [facility] | | | | | [facility] | + + + + + | DIFF TYPE | AUTOMATED | | [facility] | | | | | [facility] | + + + + + | NEUTROPHILS | 65.89 | % | [facility] | | | | | [facility] | + + + + + | LYMPHOCYTES | 19.87 | % | [facility] | | | | | [facility] | + + + + + | MONOCYTES | 11.47 | % | [facility] | | | | | [facility] | + + + + + | EOSINOPHILS | 1.00 | % | [facility] | | | | | [facility] | + + + + + | BASOPHILS | 1.77 | % | [facility] | | | | | [facility] | + + + + + | NEUTROPHILS ABS | 4.42 | 1.90 - 7.40 K/uL | [facility] | | | | | [facility] | + + + + + | LYMPHOCYTES ABS | 1.33 | 1.00 - 3.90 K/uL | [facility] | | | | | [facility] | + + + + + | MONOCYTES ABS | 0.77 | 0.00 - 0.80 K/uL | [facility] | | | | | [facility] | + + + + + | EOSINOPHILS ABS | 0.07 | 0.00 - 0.50 K/uL | [facility] | | | | | [facility] | + + + + + | BASOPHILS ABS | 0.12 (H)Comment: Testing | 0.00 - 0.10 K/uL | [facility] | | | performed at [facility], [address] | LABORATORY | | | [address] [facility], | | | | | [place] [address] | | | + + + + + + + | Specimen | + + | Blood | + + + + + + + | Performing | Address | City/State/Zipcode | Phone Number | | Organization | | | | + + + + + | [facility] | [address] [place] [address] | [place] [address] | [phone] | | LABORATORY | [place]. | | | + + + + + PROCALCITONIN (11/07/2018 3:13 AM) + + + + + | Component | Value | Ref Range | Performed At | + + + + + | PROCALCITONIN | 0.19Comment: | <0.5 ng/mL | [facility] | | | INTERPRETIVE | | | | | INFORMATION: PROCALCI | | | | | TONIN PCT <= 0.5 | | | | | ng/mL: Low risk | | | | | for progression to | | | | | severe | | | | | systemic bacteria | | | | | l infection (severe | | | | | sepsis/septic | | | | | shock). Does not | | | | | exclude an infection, | | | | | because | | | | | localized infecti | | | | | ons may be associated | | | | | with such low | | | | | levels. If PCT is | | | | | measured very early | | | | | after | | | | | bacterial challen | | | | | ge (usually <6 hours), | | | | | results may still | | | | | be low and should | | | | | re-assess PCT 6-24 | | | | | hours later. PCT >0.5 | | | | | and <= 2 | | | | | ng/mL: Moderate | | | | | risk for progression to | | | | | severe | | | | | systemic infectio | | | | | n (severe sepsis/septic | | | | | shock). Other | | | | | conditions are known to | | | | | elevate PCT, patient | | | | | should be | | | | | closely monitored both | | | | | clinically and | | | | | by re-assessing | | | | | PCT within 6-24 hours. | | | | | PCT > 2 | | | | | ng/mL: High | | | | | likelihood for | | | | | progression to severe | | | | | systemic bacteria | | | | | l infection (severe | | | | | sepsis/septic shock). | | | | | PCT >= 10 | | | | | ng/mL: High | | | | | likelihood of severe | | | | | sepsis or septic | | | | | shock.Testing performed | | | | | at [facility];[address] | | | | | [address];[place] [address] | | | + + + + + + + + + + | Performing | Address | City/State/Zipcode | Phone Number | | Organization | | | | + + + + + | [facility] | [address] | [place] [address] | | + + + + + EK STANDARD 12 LEAD (11/06/2018 2:06 PM) + + + + + | Component | Value | Ref Range | Performed At | + + + + + | Ventricular Rate | 110 | BPM | [facility] | + + + + + | Atrial Rate | 153 | BPM | [facility] | + + + + + | QRS Duration | 92 | ms | [facility] | + + + + + | Q-T Interval | 358 | ms | [facility] | + + + + + | QTC Calculation | 484 | ms | [facility] | | (Bezet) | | | | + + + + + | Calculated R Assaria | -67 | degrees | [facility] | + + + + + | Calculated T Assaria | 87 | degrees | [facility] | + + + + + | Diagnosis | Atrial fibrillation with | | [facility] | | | moderate ventricular | | | | | rateLeft axis | | | | | deviationLow voltage | | | | | QRSNonspecific ST and/or | | | | | T wave | | | | | abnormalitiesAbnormal | | | | | ECGNo previous ECGs | | | | | available Confirmed by | | | | | JULIO NOLEN MD ([id number]) | | | | | on 11/07/2018 2:20:16 PM | | | + + + + + + + + + + | Performing | Address | City/State/Zipcode | Phone Number | | Organization | | | | + + + + + | [facility] | [address] | [place] [address] | | + + + + + XR chest 1 view (11/06/2018 2:00 PM) + + + | Impressions | Performed At | + + + | 1. Right basilar infiltrate versus atelectasis and small right | [facility] | | effusion 2. Cardiomegaly without overt failure 3. Interval | [facility] | | extubation and removal of the nasogastric tube. Signed by: Arin, | | | Larry Sign Date/Time: 11/06/2018 2:24 PM | | + + + + + + | Narrative | Performed At | + + + | CHEST ONE VIEW CLINICAL INFORMATION: COPD, Hypertension | [facility] | | COMPARISON: XR CHEST 1 VIEW (11/04/2018); XR CHEST AP PORTABLE | [facility] | | (11/03/2018); XR CHEST AP PORTABLE (11/03/2018); FINDINGS: Interval | | | extubation and removal of the nasogastric tube. The right arm PICC | | | line is unchanged in position. Cardiac size appears mildly | | | generous partially due to the AP lordotic projection. Normal | | | pulmonary vascular pattern. Right basilar parenchymal density and | | | obscuration of the right costophrenic angle suggesting infiltrate | | | versus atelectasis and a small right pleural effusion. | | + + + + + | Procedure Note | + + | Osmin, Rad Results In - 11/06/2018 2:28 PM PST CHEST ONE VIEW | | CLINICAL INFORMATION: [...] Date/Time: 11/06/2018 2:24 PM | + + + + + + + | Performing | Address | City/State/Zipcode | Phone Number | | Organization | | | | + + + + + | [facility] | [address] | [place] [address] | | + + + + + Basic metabolic panel (11/06/2018 4:08 AM) + + + + + | Component | Value | Ref Range | Performed At | + + + + + | SODIUM | 138 | 135 - 145 mmol/L | [facility] | | | | | [facility] | + + + + + | POTASSIUM | 3.7 | 3.5 - 4.9 mmol/L | [facility] | | | | | [facility] | + + + + + | CHLORIDE | 101 | 99 - 109 mmol/L | [facility] | | | | | [facility] | + + + + + | CO2 | 27 | 23 - 32 mmol/L | [facility] | | | | | [facility] | + + + + + | ANION GAP AGAP | 14 | 5 - 20 mmol/L | [facility] | | | | | [facility] | + + + + + | GLUCOSE | 91 | 65 - 99 mg/dL | [facility] | | | | | [facility] | + + + + + | BUN | 21 | 8 - 25 mg/dL | [facility] | | | | | [facility] | + + + + + | CREATININE | 0.7 | 0.70 - 1.30 mg/dL | [facility] | | | | | [facility] | + + + + + | BUN/CREAT | 30 | | [facility] | | | | | [facility] | + + + + + | CALCIUM | 8.9 | 8.5 - 10.5 mg/dL | [facility] | | | | | [facility] | + + + + + | EGFR | >60Comment: GFR <60: | >60 mL/min/1.73m2 | [facility] | | | CHRONIC KIDNEY DISEASE, | | LABORATORY | | | IF FOUND OVER A 3 MONTH | | | | | PERIOD.GFR <15: KIDNEY | | | | | FAILURE.FOR | | | | | AMERICANS, MULTIPLY THE | | | | | CALCULATED GFR BY | | | | | 1.210.This eGFR is | | | | | calculated using the | | | | | MDRD [facility] traceable | | | | | equation.Testing | | | | | performed at [facility], [address] | | | | [facility], | | | | | [place] [address] | | | + + + + + + + | Specimen | + + | Blood | + + + + + + + | Performing | Address | City/State/Zipcode | Phone Number | | Organization | | | | + + + + + | [facility] | [address] | [place] [address] | [phone] | | LABORATORY | [address] | | | + + + + + Phosphorus (11/06/2018 4:08 AM) + + + + + | Component | Value | Ref Range | Performed At | + + + + + | PHOSPHORUS | 3.1Comment: Testing | 2.3 - 4.8 mg/dL | [facility] | | | performed at [facility], [address] | | LABORATORY | | | [facility], | | | | | [place] [address] | | | + + + + + + + | Specimen | + + | Blood | + + + + + + + | Performing | Address | City/State/Zipcode | Phone Number | | Organization | | | | + + + + + | [facility] | [address] [place] [address] | [place] [address] | [phone] | | LABORATORY | [address] | | | + + + + + Magnesium (11/06/2018 4:08 AM) + + + + + | Component | Value | Ref Range | Performed At | + + + + + | MAGNESIUM | 2.1Comment: Testing | 1.7 - 2.4 mg/dL | [facility] | | | performed at [facility], [address] | | LABORATORY | | | [facility] [address], | | | | | [place] [address] | | | + + + + + + + | Specimen | + + | Blood | + + + + + + + | Performing | Address | City/State/Zipcode | Phone Number | | Organization | | | | + + + + + | [facility] | [address] [facility] | [place] [address] | [phone] | | LABORATORY | [address] | | | + + + + + CBC w/auto diff (reflex to manual) (11/06/2018 4:08 AM) + + + + + | Component | Value | Ref Range | Performed At | + + + + + | WBC | 6.32 | 3.80 - 11.00 K/uL | [facility] | | | | | LABORATORY | + + + + + | RBC | 4.18 (L) | 4.20 - 5.70 M/uL | [facility] | | | | | LABORATORY | + + + + + | HGB | 13.7 | 13.2 - 17.0 g/dL | [facility] | | | | | LABORATORY | + + + + + | HCT | 41.9 | 39.0 - 50.0 % | [facility] | | | | | LABORATORY | + + + + + | MCV | 100.2 (H) | 80.0 - 100.0 fl | [facility] | | | | | LABORATORY | + + + + + | MCH | 32.7 | 27.0 - 34.0 pg | [facility] | | | | | LABORATORY | + + + + + | MCHC | 32.7 | 32.0 - 35.5 g/dL | [facility] | | | | | LABORATORY | + + + + + | RDW SD | 52.9 | 37 - 53 fl | [facility] | | | | | LABORATORY | + + + + + | PLT | 189 | 150 - 400 K/uL | [facility] | | | | | LABORATORY | + + + + + | MPV | 8.9 | fl | [facility] | | | | | LABORATORY | + + + + + | DIFF TYPE | AUTOMATED | | [facility] | | | | | LABORATORY | + + + + + | NEUTROPHILS | 65.43 | % | [facility] | | | | | LABORATORY | + + + + + | LYMPHOCYTES | 18.49 | % | [facility] | | | | | LABORATORY | + + + + + | MONOCYTES | 14.33 | % | [facility] | | | | | LABORATORY | + + + + + | EOSINOPHILS | 1.14 | % | [facility] | | | | | LABORATORY | + + + + + | BASOPHILS | 0.61 | % | [facility] | | | | | LABORATORY | + + + + + | NEUTROPHILS ABS | 4.13 | 1.90 - 7.40 K/uL | [facility] | | | | | LABORATORY | + + + + + | LYMPHOCYTES ABS | 1.17 | 1.00 - 3.90 K/uL | [facility] | | | | | LABORATORY | + + + + + | MONOCYTES ABS | 0.91 (H) | 0.00 - 0.80 K/uL | [facility] | | | | | LABORATORY | + + + + + | EOSINOPHILS ABS | 0.07 | 0.00 - 0.50 K/uL | [facility] | | | | | LABORATORY | + + + + + | BASOPHILS ABS | 0.04Comment: Testing | 0.00 - 0.10 K/uL | [facility] | | | performed at [facility], [address] | | LABORATORY | | | [address], | | | | | [place] [address] | | | + + + + + + + | Specimen | + + | Blood | + + + + + + + | Performing | Address | City/State/Zipcode | Phone Number | | Organization | | | | + + + + + | [facility] | [address] | [place] [address] | [phone] | | LABORATORY | [address] | | | + + + + + Potassium (11/05/2018 9:07 AM) + + + + + | Component | Value | Ref Range | Performed At | + + + + + | POTASSIUM | 4.1Comment: Testing | 3.5 - 4.9 mmol/L | [facility] | | | performed at [facility];[address] | | | | | [address];[place] | | | | | [address] | | | + + + + + + + | Specimen | + + | Blood | + + + + + + + | Performing | Address | City/State/Zipcode | Phone Number | | Organization | | | | + + + + + | [facility] | [address] | [place] [address] | | + + + + + Protime (11/05/2018 9:07 AM) + + + + + | Component | Value | Ref Range | Performed At | + + + + + | INR | 1.2Comment: REFERENCE | | [facility] | | | RANGE:0.9 - | | | | | 1.2 NON-ANTICOAGULATE | | | | | D2.0 - 3.0 ALL OTHER | | | | | THERAPEUTIC | | | | | INDICATIONS2.5 - 3.5 | | | | | MECHANICAL HEART VALVES, | | | | | RECURRENT OR SYSTEMIC | | | | | EMBOLISMTesting | | | | | performed at [facility];[address] | | | | | [address];[place] | | | | | [address] | | | + + + + + + + | Specimen | + + | Blood | + + + + + + + | Performing | Address | City/State/Zipcode | Phone Number | | Organization | | | | + + + + + | [facility] | [address] | [facility] [place] [address] | | + + + + + Comprehensive metabolic panel (11/05/2018 4:16 AM) + + + + + | Component | Value | Ref Range | Performed At | + + + + + | SODIUM | 138 | 135 - 145 mmol/L | [facility] | | | | | LABORATORY | + + + + + | POTASSIUM | 3.6 | 3.5 - 4.9 mmol/L | [facility] | | | | | LABORATORY | + + + + + | CHLORIDE | 100 | 99 - 109 mmol/L | [facility] | | | | | LABORATORY | + + + + + | CO2 | 26 | 23 - 32 mmol/L | [facility] | | | | | LABORATORY | + + + + + | ANION GAP AGAP | 16 | 5 - 20 mmol/L | [facility] | | | | | LABORATORY | + + + + + | GLUCOSE | 97 | 65 - 99 mg/dL | [facility] | | | | | LABORATORY | + + + + + | BUN | 27 (H) | 8 - 25 mg/dL | [facility] | | | | | LABORATORY | + + + + + | CREATININE | 0.9 | 0.70 - 1.30 mg/dL | [facility] | | | | | LABORATORY | + + + + + | BUN/CREAT | 30 | | [facility] | | | | | LABORATORY | + + + + + | CALCIUM | 8.7 | 8.5 - 10.5 mg/dL | [facility] | | | | | LABORATORY | + + + + + | TOTAL PROTEIN | 5.5 (L) | 6.3 - 8.2 g/dL | [facility] | | | | | LABORATORY | + + + + + | Albumin | 2.5 (L) | 3.6 - 5.0 g/dL | [facility] | | | | | LABORATORY | + + + + + | GLOBULIN | 3.0 | 1.3 - 4.9 g/dL | [facility] | | | | | LABORATORY | + + + + + | A/G | 0.8 (L) | 1.0 - 2.4 | [facility] | | | | | LABORATORY | + + + + + | TBIL | 2.4 (H) | 0.1 - 1.5 mg/dL | [facility] | | | | | LABORATORY | + + + + + | ALK PHOS | 48 | 35 - 115 U/L | [facility] | | | | | LABORATORY | + + + + + | AST | 26 | 10 - 45 U/L | [facility] | | | | | LABORATORY | + + + + + | ALT | 48 | 10 - 65 U/L | [facility] | | | | | LABORATORY | + + + + + | EGFR | >60Comment: GFR <60: | >60 mL/min/1.73m2 | [facility] | | | CHRONIC KIDNEY DISEASE, | | LABORATORY | | | IF FOUND OVER A 3 MONTH | | | | | PERIOD.GFR <15: KIDNEY | | | | | FAILURE.FOR | | | | | AMERICANS, MULTIPLY THE | | | | | CALCULATED GFR BY | | | | | 1.210.This eGFR is | | | | | calculated using the | | | | | MDRD IDCO traceable | | | | | equation.Testing | | | | | performed at [facility], [address] | | | | | [facility], | | | | | [place] [address] | | | + + + + + + + | Specimen | + + | Blood | + + + + + + + | Performing | Address | City/State/Zipcode | Phone Number | | Organization | | | | + + + + + | [facility] | [address] | [place] [address] | [phone] | | LABORATORY | [address] | | | + + + + + Phosphorus (11/05/2018 4:16 AM) + + + + + | Component | Value | Ref Range | Performed At | + + + + + | PHOSPHORUS | 3.4Comment: Testing | 2.3 - 4.8 mg/dL | [facility] | | | performed at [facility], [address] | | LABORATORY | | | [address], | | | | | [place] [address] | | | + + + + + + + | Specimen | + + | Blood | + + + + + + + | Performing | Address | City/State/Zipcode | Phone Number | | Organization | | | | + + + + + | [facility] | [address] | [place] [address] | [phone] | | LABORATORY | [address] | | | + + + + + Magnesium (11/05/2018 4:16 AM) + + + + + | Component | Value | Ref Range | Performed At | + + + + + | MAGNESIUM | 2.2Comment: Testing | 1.7 - 2.4 mg/dL | [facility] | | | performed at [facility], [address] | | LABORATORY | | | [address], | | | | | [place] [address] | | | + + + + + + + | Specimen | + + | Blood | + + + + + + + | Performing | Address | City/State/Zipcode | Phone Number | | Organization | | | | + + + + + | [facility] | [address] | [place] [address] | [phone] | | LABORATORY | [address] | | | + + + + + CBC w/auto diff (reflex to manual) (11/05/2018 4:16 AM) + + + + + | Component | Value | Ref Range | Performed At | + + + + + | WBC | 8.02 | 3.80 - 11.00 K/uL | [facility] | | | | | LABORATORY | + + + + + | RBC | 4.32 | 4.20 - 5.70 M/uL | [facility] | | | | | LABORATORY | + + + + + | HGB | 14.4 | 13.2 - 17.0 g/dL | [facility] | | | | | LABORATORY | + + + + + | HCT | 43.2 | 39.0 - 50.0 % | [facility] | | | | | LABORATORY | + + + + + | MCV | 100.0 | 80.0 - 100.0 fl | [facility] | | | | | LABORATORY | + + + + + | MCH | 33.3 | 27.0 - 34.0 pg | [facility] | | | | | LABORATORY | + + + + + | MCHC | 33.3 | 32.0 - 35.5 g/dL | [facility] | | | | | LABORATORY | + + + + + | RDW SD | 51.6 | 37 - 53 fl | [facility] | | | | | LABORATORY | + + + + + | PLT | 189 | 150 - 400 K/uL | [facility] | | | | | LABORATORY | + + + + + | MPV | 8.7 | fl | [facility] | | | | | LABORATORY | + + + + + | DIFF TYPE | AUTOMATED | | [facility] | | | | | LABORATORY | + + + + + | NEUTROPHILS | 72.22 | % | [facility] | | | | | LABORATORY | + + + + + | LYMPHOCYTES | 14.61 | % | [facility] | | | | | LABORATORY | + + + + + | MONOCYTES | 12.17 | % | [facility] | | | | | LABORATORY | + + + + + | EOSINOPHILS | 0.65 | % | [facility] | | | | | LABORATORY | + + + + + | BASOPHILS | 0.35 | % | [facility] | | | | | LABORATORY | + + + + + | NEUTROPHILS ABS | 5.79 | 1.90 - 7.40 K/uL | [facility] | | | | | LABORATORY | + + + + + | LYMPHOCYTES ABS | 1.17 | 1.00 - 3.90 K/uL | [facility] | | | | | LABORATORY | + + + + + | MONOCYTES ABS | 0.98 (H) | 0.00 - 0.80 K/uL | [facility] | | | | | LABORATORY | + + + + + | EOSINOPHILS ABS | 0.05 | 0.00 - 0.50 K/uL | [facility] | | | | | LABORATORY | + + + + + | BASOPHILS ABS | 0.03Comment: Testing | 0.00 - 0.10 K/uL | [facility] | | | performed at [facility], [address] | | LABORATORY | | | [address], | | | | | [place] [address] | | | + + + + + + + | Specimen | + + | Blood | + + + + + + + | Performing | Address | City/State/Zipcode | Phone Number | | Organization | | | | + + + + + | [facility] | [address] | [place] [address] | [phone] | | LABORATORY | [address] | | | + + + + + Troponin I (11/04/2018 2:08 PM) + + + + + | Component | Value | Ref Range | Performed At | + + + + + | TROPONIN I | 0.113 (H)Comment: 0.04 | 0.00 - 0.04 ng/mL | [facility] | | | ng/mL or | | | | | less Nega | | | | | tive, repeat testing in | | | | | four to six hour if | | | | | clinically indicted0.05 | | | | | to 0.77 | | | | | ng/mL Gracie | | | | | picious for myocardial | | | | | injury. Serial | | | | | measurements may be | | | | | necessary to confirm or | | | | | exclude the diagnosis of | | | | | acute coronary | | | | | syndrome. Repeat testing | | | | | in four to six hours if | | | | | indicated.0.78 or | | | | | greater | | | | | ng/mL Consistent | | | | | with myocardial injury. | | | | | Clinical and laboratory | | | | | correlation recommended. | | | | | NOTE NEW REFERENCE | | | | | RANGETesting performed | | | | | at [facility];[address] [place] [address] | | | | | [facility];[place] [address] | | | + + + + + + + | Specimen | + + | Blood | + + + + + + + | Performing | Address | City/State/Zipcode | Phone Number | | Organization | | | | + + + + + | [facility] | [address] | [place] [address] | | + + + + + CPK (11/04/2018 2:08 PM) + + + + + | Component | Value | Ref Range | Performed At | + + + + + | CPK | 38 (L)Comment: Testing | 55 - 400 U/L | [facility] | | | performed at [facility];[address] | | | | | [facility];[place] | | | | | [address] | | | + + + + + + + | Specimen | + + | Blood | + + + + + + + | Performing | Address | City/State/Zipcode | Phone Number | | Organization | | | | + + + + + | [facility] | [address] | [place] [address] | | + + + + + CK MB (11/04/2018 2:08 PM) + + + + + | Component | Value | Ref Range | Performed At | + + + + + | MMB | 2.6 | 0.5 - 3.6 ng/mL | [facility] | + + + + + | CK-MB Index | 6.8Comment: CK INDEX | | [facility] | | | INTERPRETATION: | | | | | MMB | | | | | ng/mL & Relative | | | | | IndexNon-AMI | | | | | < or = | | | | | 5.0 N | | | | | AGray Zone | | | | | >5.0 < | | | | | or = | | | | | 4.0AMI | | | | | | | | | | >5.0 | | | | | >4.0Testing | | | | | performed at [facility];[address] | | | | | [address];[place] | | | | | [address] | | | + + + + + + + | Specimen | + + | Blood | + + + + + + + | Performing | Address | City/State/Zipcode | Phone Number | | Organization | | | | + + + + + | [facility] | [address] | [place] [address] | | + + + + + Magnesium (11/04/2018 7:43 AM) + + + + + | Component | Value | Ref Range | Performed At | + + + + + | MAGNESIUM | 2.4Comment: Testing | 1.7 - 2.4 mg/dL | [facility] | | | performed at [facility];[address] | | | | | [facility];[place], [place] | | | | | [address] | | | + + + + + + + | Specimen | + + | Blood | + + + + + + + | Performing | Address | City/State/Zipcode | Phone Number | | Organization | | | | + + + + + | [facility] | [address] | [place] [address] | | + + + + + Troponin I (11/04/2018 7:43 AM) + + + + + | Component | Value | Ref Range | Performed At | + + + + + | TROPONIN I | 0.139 (H)Comment: 0.04 | 0.00 - 0.04 ng/mL | [facility] | | | ng/mL or | | | | | less Nega | | | | | tive, repeat testing in | | | | | four to six hour if | | | | | clinically indicted0.05 | | | | | to 0.77 | | | | | ng/mL Gracie | | | | | picious for myocardial | | | | | injury. Serial | | | | | measurements may be | | | | | necessary to confirm or | | | | | exclude the diagnosis of | | | | | acute coronary | | | | | syndrome. Repeat testing | | | | | in four to six hours if | | | | | indicated.0.78 or | | | | | greater | | | | | ng/mL Consistent | | | | | with myocardial injury. | | | | | Clinical and laboratory | | | | | correlation recommended. | | | | | NOTE NEW REFERENCE | | | | | RANGETesting performed | | | | | at [facility];[address] | | | [address];[place] [address] | | | + + + + + + + | Specimen | + + | Blood | + + + + + + + | Performing | Address | City/State/Zipcode | Phone Number | | Organization | | | | + + + + + | [facility] | [address] | [place] [address] | | + + + + + CPK (11/04/2018 7:43 AM) + + + + + | Component | Value | Ref Range | Performed At | + + + + + | CPK | 32 (L)Comment: Testing | 55 - 400 U/L | [facility] | | | performed at [facility];[address] | | | | | [address];[place] | | | | | [address] | | | + + + + + + + | Specimen | + + | Blood | + + + + + + + | Performing | Address | City/State/Zipcode | Phone Number | | Organization | | | | + + + + + | [facility] | [address] | [place] [address] | | + + + + + CK MB (11/04/2018 7:43 AM) + + + + + | Component | Value | Ref Range | Performed At | + + + + + | MMB | 2.3 | 0.5 - 3.6 ng/mL | [facility] | + + + + + | CK-MB Index | 7.2Comment: CK INDEX | | [facility] | | | INTERPRETATION: | | | | | MMB | | | | | ng/mL & Relative | | | | | IndexNon-AMI | | | | | < or = | | | | | 5.0 N | | | | | AGray Zone | | | | | >5.0 < | | | | | or = | | | | | 4.0AMI | | | | | | | | | | >5.0 | | | | | >4.0Testing | | | | | performed at [facility];[address] | | | | | [address];[place] | | | | | [address] | | | + + + + + + + | Specimen | + + | Blood | + + + + + + + | Performing | Address | City/State/Zipcode | Phone Number | | Organization | | | | + + + + + | [facility] | [address] | [place] [address] | | + + + + + Phosphorus (11/04/2018 4:10 AM) + + + + + | Component | Value | Ref Range | Performed At | + + + + + | PHOSPHORUS | 5.7 (H)Comment: Testing | 2.3 - 4.8 mg/dL | [facility] | | | performed at [facility] | | | | | [address];[place] | | | | | [address] | | | + + + + + + + | Specimen | + + | Blood | + + + + + + + | Performing | Address | City/State/Zipcode | Phone Number | | Organization | | | | + + + + + | [facility] | [address] | [place] [address] | | + + + + + Magnesium (11/04/2018 4:10 AM) + + + + + | Component | Value | Ref Range | Performed At | + + + + + | MAGNESIUM | 2.1Comment: Testing | 1.7 - 2.4 mg/dL | [facility] | | | performed at [facility];[address] | | | | | [facility];[place] | | | | | [address] | | | + + + + + + + | Specimen | + + | Blood | + + + + + + + | Performing | Address | City/State/Zipcode | Phone Number | | Organization | | | | + + + + + | [facility] | [address] | [place] [address] | | + + + + + CBC w/auto diff (reflex to manual) (11/04/2018 4:10 AM) + + + + + | Component | Value | Ref Range | Performed At | + + + + + | WBC | 12.24 (H) | 3.80 - 11.00 K/uL | [facility] | | | | | LABORATORY | + + + + + | RBC | 4.57 | 4.20 - 5.70 M/uL | [facility] | | | | | LABORATORY | + + + + + | HGB | 14.9 | 13.2 - 17.0 g/dL | [facility] | | | | | LABORATORY | + + + + + | HCT | 45.9 | 39.0 - 50.0 % | [facility] | | | | | LABORATORY | + + + + + | MCV | 100.4 (H) | 80.0 - 100.0 fl | [facility] | | | | | LABORATORY | + + + + + | MCH | 32.7 | 27.0 - 34.0 pg | [facility] | | | | | LABORATORY | + + + + + | MCHC | 32.5 | 32.0 - 35.5 g/dL | [facility] | | | | | LABORATORY | + + + + + | RDW SD | 53.8 (H) | 37 - 53 fl | [facility] | | | | | LABORATORY | + + + + + | PLT | 245 | 150 - 400 K/uL | [facility] | | | | | LABORATORY | + + + + + | MPV | 9.0 | fl | [facility] | | | | | LABORATORY | + + + + + | DIFF TYPE | AUTOMATED | | [facility] | | | | | LABORATORY | + + + + + | NEUTROPHILS | 82.88 | % | [facility] | | | | | LABORATORY | + + + + + | LYMPHOCYTES | 7.00 | % | [facility] | | | | | LABORATORY | + + + + + | MONOCYTES | 9.76 | % | [facility] | | | | | LABORATORY | + + + + + | EOSINOPHILS | 0.07 | % | [facility] | | | | | LABORATORY | + + + + + | BASOPHILS | 0.29 | % | [facility] | | | | | LABORATORY | + + + + + | NEUTROPHILS ABS | 10.14 (H) | 1.90 - 7.40 K/uL | [facility] | | | | | LABORATORY | + + + + + | LYMPHOCYTES ABS | 0.86 (L) | 1.00 - 3.90 K/uL | [facility] | | | | | LABORATORY | + + + + + | MONOCYTES ABS | 1.19 (H) | 0.00 - 0.80 K/uL | [facility] | | | | | LABORATORY | + + + + + | EOSINOPHILS ABS | 0.01 | 0.00 - 0.50 K/uL | [facility] | | | | | LABORATORY | + + + + + | BASOPHILS ABS | 0.04Comment: Testing | 0.00 - 0.10 K/uL | [facility] | | | performed at [facility], [address] | | LABORATORY | | | [address], | | | | | [place] [address] | | | + + + + + + + | Specimen | + + | Blood | + + + + + + + | Performing | Address | City/State/Zipcode | Phone Number | | Organization | | | | + + + + + | [facility] | [address] | [place] [address] | [phone] | | LABORATORY | [address] | | | + + + + + Basic metabolic panel (11/04/2018 4:10 AM) + + + + + | Component | Value | Ref Range | Performed At | + + + + + | SODIUM | 137 | 135 - 145 mmol/L | [facility] | + + + + + | POTASSIUM | 4.6 | 3.5 - 4.9 mmol/L | [facility] | + + + + + | CHLORIDE | 102 | 99 - 109 mmol/L | [facility] | + + + + + | CO2 | 25 | 23 - 32 mmol/L | [facility] | + + + + + | ANION GAP AGAP | 15 | 5 - 20 mmol/L | [facility] | + + + + + | GLUCOSE | 191 (H) | 65 - 99 mg/dL | [facility] | + + + + + | BUN | 25 | 8 - 25 mg/dL | [facility] | + + + + + | CREATININE | 1.26 | 0.70 - 1.30 mg/dL | [facility] | + + + + + | BUN/CREAT | 20 | | [facility] | + + + + + | CALCIUM | 8.6 | 8.5 - 10.5 mg/dL | [facility] | + + + + + | EGFR | 59 (L)Comment: GFR <60: | >60 mL/min/1.73m2 | [facility] | | | CHRONIC KIDNEY DISEASE, | | | | | IF FOUND OVER A 3 MONTH | | | | | PERIOD.GFR <15: KIDNEY | | | | | FAILURE.FOR | | | | | AMERICANS, MULTIPLY THE | | | | | CALCULATED GFR BY | | | | | 1.210.This eGFR is | | | | | calculated using the | | | | | MDRD IDMS traceable | | | | | equation.Testing | | | | | performed at [facility];[address] | | | | | [facility];[place], [place] | | | | | [address] | | | + + + + + + + | Specimen | + + | Blood | + + + + + + + | Performing | Address | City/State/Zipcode | Phone Number | | Organization | | | | + + + + + | [facility] | [address] | [facility] [place] [address] | | + + + + + PROCALCITONIN (11/04/2018 4:10 AM) + + + + + | Component | Value | Ref Range | Performed At | + + + + + | PROCALCITONIN | 1.13 (H)Comment: | <0.5 ng/mL | [facility] | | | INTERPRETIVE | | | | | INFORMATION: PROCALCI | | | | | TONIN PCT <= 0.5 | | | | | ng/mL: Low risk | | | | | for progression to | | | | | severe | | | | | systemic bacteria | | | | | l infection (severe | | | | | sepsis/septic | | | | | shock). Does not | | | | | exclude an infection, | | | | | because | | | | | localized infecti | | | | | ons may be associated | | | | | with such low | | | | | levels. If PCT is | | | | | measured very early | | | | | after | | | | | bacterial challen | | | | | ge (usually <6 hours), | | | | | results may still | | | | | be low and should | | | | | re-assess PCT 6-24 | | | | | hours later. PCT >0.5 | | | | | and <= 2 | | | | | ng/mL: Moderate | | | | | risk for progression to | | | | | severe | | | | | systemic infectio | | | | | n (severe sepsis/septic | | | | | shock). Other | | | | | conditions are known to | | | | | elevate PCT, patient | | | | | should be | | | | | closely monitored both | | | | | clinically and | | | | | by re-assessing | | | | | PCT within 6-24 hours. | | | | | PCT > 2 | | | | | ng/mL: High | | | | | likelihood for | | | | | progression to severe | | | | | systemic bacteria | | | | | l infection (severe | | | | | sepsis/septic shock). | | | | | PCT >= 10 | | | | | ng/mL: High | | | | | likelihood of severe | | | | | sepsis or septic | | | | | shock.Testing performed | | | | | at [facility];[address] | | | | | [address];[place] [address] | | | + + + + + + + + + + | Performing | Address | City/State/Zipcode | Phone Number | | Organization | | | | + + + + + | [facility] | [address] | [place] [address] | | + + + + + US rom dickinson (11/04/2018 2:51 AM) + + + | Impressions | Performed At | + + + | 1. Heterogeneous thickened gallbladder wall. Negative sonographic | [facility] | | Harden sign. No shadowing gallstones evident. No dilated | RADIOLOGY | | intrahepatic or extrahepatic bile ducts. 2. Mild | | | hepatomegaly. Minimal ascites fluid seen adjacent to the right | | | lobe of the liver. Signed by: MD Jenifer, Dr. Nathan Cool Date/Time: | | | 11/04/2018 3:04 AM | | + + + + + + | Narrative | Performed At | + + + | ULTRASOUND ABDOMEN, LIMITED CLINICAL INFORMATION: Abdominal pain | [facility] | | COMPARISON: ECHO OUTSIDE INTERPRETATION (03/23/2016); PROCEDURE: | RADIOLOGY | | Evaluation of the gallbladder, if [...] duct 7.0 mm. Right kidney: 12.6 cm | | | length. No solid renal mass, hydronephrosis or definitive calculi. | | | Pancreas: The visible portions of the pancreatic head appear normal. | | | The pancreatic body and tail are obscured by bowel gas. IVC | | | normal. A small amount of ascites fluid is seen adjacent to the | | | right lobe of the liver. | | + + + + + | Procedure Note | + + | Osmin, Rad Results In - 11/04/2018 3:08 AM PST ULTRASOUND ABDOMEN, LIMITED | | CLINICAL INFORMATION: [...] the liver. | | Signed by: MD Jenifer, Dr. Evans | | Sign Date/Time: 11/04/2018 3:04 AM | + + + + + + + | Performing | Address | City/State/Zipcode | Phone Number | | Organization | | | | + + + + + | [facility] | [address] | [place] [address] | | + + + + + XR chest 1 view (11/04/2018 1:36 AM) + + + | Narrative | Performed At | + + + | CHEST ONE VIEW CLINICAL INFORMATION: Tube, line position. | [facility] | | COMPARISON: XR CHEST AP PORTABLE (11/03/2018); XR CHEST AP PORTABLE | RADIOLOGY | | (11/03/2018); FINDINGS/IMPRESSION: 1. Endotracheal tube [...] | Osmin, Rad Results In - 11/04/2018 1:51 AM PST CHEST ONE VIEW | | CLINICAL INFORMATION: [...] Date/Time: 11/04/2018 1:47 AM | + + + + + + + | Performing | Address | City/State/Zipcode | Phone Number | | Organization | | | | + + + + + | [facility] | [address] | [place] [address] | | + + + + + Blood Culture Set 2 (11/04/2018 1:13 AM) + + + + + | Component | Value | Ref Range | Performed At | + + + + + | Specimen Description | BLOOD | | [facility] | | | | | LABORATORY | + + + + + | SPECIAL REQUESTS | LAC | | [facility] | + + + + + | CULTURE | NO GROWTH 6 DAYS | | [facility] | | | | | LABORATORY | + + + + + + + | Specimen | + + | Blood - Blood | + + + + + + + | Performing | Address | City/State/Zipcode | Phone Number | | Organization | | | | + + + + + | [facility] | [address] | [place] [address] | [phone] | | LABORATORY | [address]vd[address] | | | + + + + + | [facility] | [address] | [place] [address] | | + + + + + CK MB (11/04/2018 1:12 AM) + + + + + | Component | Value | Ref Range | Performed At | + + + + + | MMB | 2.4 | 0.5 - 3.6 ng/mL | [facility] | + + + + + | CK-MB Index | 7.5Comment: CK INDEX | | [facility] | | | INTERPRETATION: | | | | | MMB | | | | | ng/mL & Relative | | | | | IndexNon-AMI | | | | | < or = | | | | | 5.0 N | | | | | AGray Zone | | | | | >5.0 < | | | | | or = | | | | | 4.0AMI | | | | | | | | | | >5.0 | | | | | >4.0Testing | | | | | performed at [facility];[address];[place] | | | | | [id number] | | | + + + + + + + | Specimen | + + | Blood | + + + + + + + | Performing | Address | City/State/Zipcode | Phone Number | | Organization | | | | + + + + + | [facility] | [address] | [place] [address] | | + + + + + CPK (11/04/2018 1:12 AM) + + + + + | Component | Value | Ref Range | Performed At | + + + + + | CPK | 32 (L)Comment: Testing | 55 - 400 U/L | [facility] | | | performed at [facility];[address] | | | | | [address];[place] | | | | | [address] | | | + + + + + + + | Specimen | + + | Blood | + + + + + + + | Performing | Address | City/State/Zipcode | Phone Number | | Organization | | | | + + + + + | [facility] | [address] | [place] [address] | | + + + + + Troponin I (11/04/2018 1:12 AM) + + + + + | Component | Value | Ref Range | Performed At | + + + + + | TROPONIN I | 0.168 (H)Comment: 0.04 | 0.00 - 0.04 ng/mL | [facility] | | | ng/mL or | | | | | less Nega | | | | | tive, repeat testing in | | | | | four to six hour if | | | | | clinically indicted0.05 | | | | | to 0.77 | | | | | ng/mL Gracie | | | | | picious for myocardial | | | | | injury. Serial | | | | | measurements may be | | | | | necessary to confirm or | | | | | exclude the diagnosis of | | | | | acute coronary | | | | | syndrome. Repeat testing | | | | | in four to six hours if | | | | | indicated.0.78 or | | | | | greater | | | | | ng/mL Consistent | | | | | with myocardial injury. | | | | | Clinical and laboratory | | | | | correlation recommended. | | | | | NOTE NEW REFERENCE | | | | | RANGETesting performed | | | | | at [facility];[address];[place] [address] | | | + + + + + + + | Specimen | + + | Blood | + + + + + + + | Performing | Address | City/State/Zipcode | Phone Number | | Organization | | | | + + + + + | [facility] | [address] | [place] [address] | | + + + + + Lipase (11/04/2018 1:12 AM) + + + + + | Component | Value | Ref Range | Performed At | + + + + + | LIPASE | 26Comment: NOTE NEW | 12 - 53 U/L | [facility] | | | REFERENCE RANGETesting | | | | | performed at [facility];[address] | | | | | [address];[place] | | | | | [address] | | | + + + + + + + | Specimen | + + | Blood | + + + + + + + | Performing | Address | City/State/Zipcode | Phone Number | | Organization | | | | + + + + + | [facility] | [address] | [place] [address] | | + + + + + Amylase (11/04/2018 1:12 AM) + + + + + | Component | Value | Ref Range | Performed At | + + + + + | AMYLASE | 38Comment: Testing | 25 - 115 U/L | [facility] | | | performed at [facility];[address] | | | [address];[place] | | | | | [address] | | | + + + + + + + | Specimen | + + | Blood | + + + + + + + | Performing | Address | City/State/Zipcode | Phone Number | | Organization | | | | + + + + + | [facility] | [address] | [place] [address] | | + + + + + Basic metabolic panel (11/04/2018 1:12 AM) + + + + + | Component | Value | Ref Range | Performed At | + + + + + | SODIUM | 138 | 135 - 145 mmol/L | [facility] | + + + + + | POTASSIUM | 4.7 | 3.5 - 4.9 mmol/L | [facility] | + + + + + | CHLORIDE | 101 | 99 - 109 mmol/L | [facility] | + + + + + | CO2 | 26 | 23 - 32 mmol/L | [facility] | + + + + + | ANION GAP AGAP | 16 | 5 - 20 mmol/L | [facility] | + + + + + | GLUCOSE | 209 (H) | 65 - 99 mg/dL | [facility] | + + + + + | BUN | 24 | 8 - 25 mg/dL | [facility] | + + + + + | CREATININE | 1.24 | 0.70 - 1.30 mg/dL | [facility] | + + + + + | BUN/CREAT | 19 | | [facility] | + + + + + | CALCIUM | 8.5 | 8.5 - 10.5 mg/dL | [facility] | + + + + + | EGFR | >60Comment: GFR <60: | >60 mL/min/1.73m2 | [facility] | | | CHRONIC KIDNEY DISEASE, | | | | | IF FOUND OVER A 3 MONTH | | | | | PERIOD.GFR <15: KIDNEY | | | | | FAILURE.FOR | | | | | AMERICANS, MULTIPLY THE | | | | | CALCULATED GFR BY | | | | | 1.210.This eGFR is | | | | | calculated using the | | | | | MDRD IDMS traceable | | | | | equation.Testing | | | | | performed at [facility];[address];[place] | | | | | [address] | | | + + + + + + + | Specimen | + + | Blood | + + + + + + + | Performing | Address | City/State/Zipcode | Phone Number | | Organization | | | | + + + + + | [facility] | [address] | [place] [address] | | + + + + + Lactic acid (11/04/2018 1:12 AM) + + + + + | Component | Value | Ref Range | Performed At | + + + + + | LACTIC ACID | 1.1Comment: Testing | 0.4 - 2.0 mmol/L | [facility] | | | performed at [facility] | | | | | [address];[place] | | | | | [address] | | | + + + + + + + | Specimen | + + | Blood | + + + + + + + | Performing | Address | City/State/Zipcode | Phone Number | | Organization | | | | + + + + + | [facility] | [address] | [place] [address] | | + + + + + Blood Culture Set 1 (11/04/2018 1:12 AM) + + + + + | Component | Value | Ref Range | Performed At | + + + + + | Specimen Description | BLOOD | | [facility] | | | | | [facility] | + + + + + | SPECIAL REQUESTS | RT ARM | | [facility] | + + + + + | CULTURE | NO GROWTH 6 DAYS | | [facility] | | | | | [facility] | + + + + + + + | Specimen | + + | Blood - Blood | + + + + + + + | Performing | Address | City/State/Zipcode | Phone Number | | Organization | | | | + + + + + | [facility] | [address] [facility] [address] | [place] [address] | [phone] | | LABORATORY | [place]. | | | + + + + + | [facility] | [address] | [place] [address] | | + + + + + MRSA by PCR (11/04/2018 12:13 AM) + + + + + | Component | Value | Ref Range | Performed At | + + + + + | SOURCE | NARES(NOSE) | | [facility] | + + + + + | MRSA PCR | NEGATIVEComment: Testing | NEGATIVE | [facility] | | | performed at [facility];[address] | | | | | [address];[place] | | | | | [address] | | | + + + + + + + | Specimen | + + | Nasopharyngeal - | | Nasopharyngeal | | Culture | + + + + + + + | Performing | Address | City/State/Zipcode | Phone Number | | Organization | | | | + + + + + | [facility] | [address] | [place] [address] | | + + + + + POC Arterial Blood Gas (11/03/2018 11:43 PM) + + + + + | Component | Value | Ref Range | Performed At | + + + + + | POC FIO2 | 50 | % | [facility] | + + + + + | pH, Art | 7.344 (L) | 7.350 - 7.450 | [facility] | + + + + + | POC PCO2 | 42 | 35 - 45 mmHg | [facility] | + + + + + | POC p02 | 105 | 80 - 105 mmHg | [facility] | + + + + + | POC HCO3 | 23 | 22 - 26 mmol/L | [facility] | + + + + + | POC TCO2 | 24 | 23 - 27 mEq/L | [facility] | + + + + + | POC BASE DEFICIT | 3 (H) | 0.0 - 2.0 mmol/L | [facility] | + + + + + | POC S02 | 98 | 95 - 98 % | [facility] | + + + + + | POC COMMENTS | Oliver Test not | | [facility] | | | indicatedComment: Site = | | | | | left radialTesting | | | | | performed at [facility];[address] | | | | | [address];[place], [place] | | | | | [address] | | | + + + + + + + + + + | Performing | Address | City/State/Zipcode | Phone Number | | Organization | | | | + + + + + | [facility] | [address] | [place] [address] | | + + + + + POCT glucose (11/03/2018 11:11 PM) + + + + + | Component | Value | Ref Range | Performed At | + + + + + | GLUCOSE,POC SCREEN | 174 (H)Comment: Testing | 65 - 99 mg/dL | [facility] | | | performed at [facility];[address] | | | | | [address];[place] | | | | | [address] | | | + + + + + + + + + + | Performing | Address | City/State/Zipcode | Phone Number | | Organization | | | | + + + + + | [facility] | [address] | [place] [address] | | + + + + + in this encounter Visit Diagnoses + + | Diagnosis | + + | Cardiogenic shock (HCC) - Primary | + + | Cardiogenic shock | + + | Coronary artery disease | + + | Coronary atherosclerosis of unspecified type of vessel, [place] or graft | + + | COPD (chronic obstructive pulmonary disease) | + + | Chronic airway obstruction, not elsewhere classified | + + | Essential hypertension, benign | + + | Personal history of tobacco use, presenting hazards to health | + + | History of methamphetamine abuse | + + | Nondependent amphetamine or related acting sympathomimetic abuse, in remission | + + | Panlobular emphysema (HCC) | + + | Other emphysema | + + | Thoracic aortic aneurysm without rupture (HCC) | + + | Thoracic aneurysm without mention of rupture | + + | Alcohol dependence (HCC) | + + | Other and unspecified alcohol dependence, unspecified drinking behavior | + + | SWEETIE (acute kidney injury) (HCC) | + + | Acute kidney failure, unspecified | + + | Alcohol abuse | + + | Alcohol abuse, unspecified | + + | Cardiomegaly | + + Admitting Diagnoses + + | Diagnosis | + + | Cardiogenic shock (HCC) | + + | Cardiogenic shock | + + | Cardiogenic shock | + + Administered Medications + +--------+---------+------+------+------+ | Medication Order | MAR | Action | Dose | Rate | Site | | | Action | Date | | | | + +--------+---------+------+------+------+ + +---+ | acetaminophen (TYLENOL) | | | suppository 650 mg 650 mg, | | | Rectal, Every 6 Hours PRN, Mild | | | Pain (1-3), Fever, Starting Sun | | | 11/03/18 at 2316 | | + +---+ | | | + +---+ | acetaminophen (TYLENOL) tablet | | | 650 mg 650 mg, Oral, Every 6 | | | Hours PRN, Mild Pain (1-3), | | | Fever, Starting 11/03/18 at | | | 2316 | | + +---+ | | | + +---+ + +-------+ +---------+---+---+ | albuterol (PROVENTIL,VENTOLIN) | Given | 11/07/2018 | 6 puffs | | | | inhaler 6 puff, Ventilator, | | 06:37 | | | | | Every 4 Hours PRN, Wheezing, | | PST | | | | | Starting 11/04/18 at 0213 | | | | | | + +-------+ +---------+---+---+ +---+---+ | | | +---+---+ + +-------+ +------+---+---+ | amLODIPine (NORVASC) tablet 5 | Given | 11/04/2018 | 5 mg | | | | mg 5 mg, Oral, Daily, First dose | | 18:59 | | | | | on Sun11/04/18 at 1900 | | PST | | | | + +-------+ +------+---+---+ +-------+ +------+---+---+ | Given | 11/05/2018 | 5 mg | | | | | 17:07 | | | | | | PST | | | | +-------+ +------+---+---+ | Given | 11/06/2018 | 5 mg | | | | | 17:58 | | | | | | PST | | | | +-------+ +------+---+---+ +---+---+ | | | +---+---+ + +-------+ +--------+---+---+ | aspirin tablet 325 mg 325 mg, | Given | 11/05/2018 | 325 mg | | | | Oral, Daily With Breakfast, First | | 07:27 | | | | | dose on Sun11/04/18 at 0800 | | PST | | | | + +-------+ +--------+---+---+ +-------+ +--------+---+---+ | Given | 11/06/2018 | 325 mg | | | | | 08:52 | | | | | | PST | | | | +-------+ +--------+---+---+ | Given | 11/07/2018 | 325 mg | | | | | 08:55 | | | | | | PST | | | | +-------+ +--------+---+---+ +---+---+ | | | +---+---+ + +-------+ +---------+---+---+ | carvedilol (COREG) tablet 12.5 | Given | 11/06/2018 | 12.5 mg | | | | mg 12.5 mg, Oral, 2 Times Daily | | 08:51 | | | | | With Meals, First dose on Tue | | PST | | | | | 11/05/18 at 1700 | | | | | | + +-------+ +---------+---+---+ +-------+ +---------+---+---+ | Given | 11/06/2018 | 12.5 mg | | | | | 17:57 | | | | | | PST | | | | +-------+ +---------+---+---+ | Given | 11/07/2018 | 12.5 mg | | | | | 08:55 | | | | | | PST | | | | +-------+ +---------+---+---+ +---+---+ | | | +---+---+ + +-------+ +---------+---+---+ | carvedilol (COREG) tablet 6.25 | Given | 11/04/2018 | 6.25 mg | | | | mg 6.25 mg, Oral, 2 Times Daily | | 18:59 | | | | | With Meals, First dose on Sun | | PST | | | | | 11/04/18 at 1900 | | | | | | + +-------+ +---------+---+---+ +-------+ +---------+---+---+ | Given | 11/05/2018 | 6.25 mg | | | | | 07:27 | | | | | | PST | | | | +-------+ +---------+---+---+ +---+---+ | | | +---+---+ + +-------+ +-----+-------+---+ | cefTRIAXone (ROCEPHIN) IVPB 1 g | Given | 11/04/2018 | 1 g | 100 | | | 1 g, Intravenous, Administer | | 14:14 | | mL/hr | | | over 30 Minutes, Every 24 Hours, | | PST | | | | | First dose on 11/04/18 at 1500, | | | | | | | For 4 doses | | | | | | + +-------+ +-----+-------+---+ +-------+ +-----+-------+---+ | Given | 11/05/2018 | 1 g | 100 | | | | 15:29 | | mL/hr | | | | PST | | | | +-------+ +-----+-------+---+ | Given | 11/06/2018 | 1 g | 100 | | | | 15:23 | | mL/hr | | | | PST | | | | +-------+ +-----+-------+---+ + +---+ | | | + +---+ | chlordiazePOXIDE (LIBRIUM) | | | capsule 25-100 mg 25-100 mg, | | | Oral, PRN, Other, Withdrawal | | | Symptoms, Starting Sun11/04/18 at | | | 1841 | | + +---+ | | | + +---+ + +-------+ +--------+---+---+ | chlorhexidine gluconate 0.12 % | Given | 11/04/2018 | 15 mLs | | | | oral rinse 15 mL 15 mL, | | 00:00 | | | | | Mouth/Throat, Every 12 Hours, | | PST | | | | | First dose on Sun11/04/18 at 0000 | | | | | | + +-------+ +--------+---+---+ +-------+ +--------+---+---+ | Given | 11/04/2018 | 15 mLs | | | | | 08:11 | | | | | | PST | | | | +-------+ +--------+---+---+ +---+---+ | | | +---+---+ + +-------+ +--------+---+---+ | docusate (COLACE) 50 mg/5 mL | Given | 11/04/2018 | 100 mg | | | | liquid 100 mg 100 mg, Per OG | | 08:09 | | | | | Tube, 2 Times Daily, First dose | | PST | | | | | on Sun11/04/18 at 0000 | | | | | | + +-------+ +--------+---+---+ +---+---+ | | | +---+---+ + +-------+ +--------+---+---+ | docusate sodium (COLACE) | Given | 11/05/2018 | 100 mg | | | | capsule 100 mg 100 mg, Oral, 2 | | 21:45 | | | | | Times Daily, First dose on Mon | | PST | | | | | 11/04/18 at 0000 | | | | | | + +-------+ +--------+---+---+ +-------+ +--------+---+---+ | Given | 11/06/2018 | 100 mg | | | | | 08:52 | | | | | | PST | | | | +-------+ +--------+---+---+ | Given | 11/07/2018 | 100 mg | | | | | 08:55 | | | | | | PST | | | | +-------+ +--------+---+---+ +---+---+ | | | +---+---+ + +-------+ +-------+---+---+ | enoxaparin (LOVENOX) injection | Given | 11/04/2018 | 40 mg | | | | 40 mg 40 mg, Subcutaneous, Every | | 03:45 | | | | | 24 Hours, First dose on Mon | | PST | | | | | 11/04/18 at 0400 | | | | | | + +-------+ +-------+---+---+ +-------+ +-------+---+---+ | Given | 11/05/2018 | 40 mg | | | | | 04:07 | | | | | | PST | | | | +-------+ +-------+---+---+ +---+---+ | | | +---+---+ + +-------+ +-------+---+---+ | enoxaparin (LOVENOX) injection | Given | 11/05/2018 | 50 mg | | | | 50 mg 50 mg, Subcutaneous, Once, | | 09:33 | | | | | 11/05/18 at 0930, For 1 dose | | PST | | | | + +-------+ +-------+---+---+ +---+---+ | | | +---+---+ + +-------+ +-------+---+---+ | enoxaparin (LOVENOX) injection | Given | 11/06/2018 | 90 mg | | | | 90 mg 90 mg (rounded from 91.4 | | 08:48 | | | | | mg = 1 mg/kg | | PST | | | | | 91.4 kg), Subcutaneous, Every 12 | | | | | | | Hours, First dose on e 11/05/18 | | | | | | | at 2130 | | | | | | + +-------+ +-------+---+---+ +-------+ +-------+---+---+ | Given | 11/06/2018 | 90 mg | | | | | 20:22 | | | | | | PST | | | | +-------+ +-------+---+---+ | Given | 11/07/2018 | 90 mg | | | | | 08:55 | | | | | | PST | | | | +-------+ +-------+---+---+ +---+---+ | | | +---+---+ + + + +---------+-------+---+ | EPINEPHrine (ADRENALIN) 32 | Rate/Dos | 11/04/2018 | 2 | 3.8 | | | mcg/mL in sodium chloride (IV) | e Change | 09:05 | mcg/min | mL/hr | | | 0.9 % 250 mL infusion 0-10 | | PST | | | | | mcg/min (0-18.75 mL/hr, rounded | | | | | | | to 0-18.8 mL/hr), Intravenous, at | | | | | | | 0-18.8 mL/hr, Titrated, Starting | | | | | | | 11/04/18 at 0000, In emergent | | | | | | | situations, more rapid titration | | | | | | | may be clinically indicated. | | | | | | | Place partial or empty package in | | | | | | | black waste container. | | | | | | + + + +---------+-------+---+ + + +---------+-------+---+ | Rate/Dose Change | 11/04/2018 | 1.5 | 2.8 | | | | 09:21 | mcg/min | mL/hr | | | | PST | | | | + + +---------+-------+---+ | Rate/Dose Change | 11/04/2018 | 1 | 1.9 | | | | 09:28 | mcg/min | mL/hr | | | | PST | | | | + + +---------+-------+---+ +---+---+ | | | +---+---+ + +-------+ +-------+---+---+ | famotidine (PEPCID) tablet 20 | Given | 11/04/2018 | 20 mg | | | | mg 20 mg, Oral, 2 Times Daily, | | 08:09 | | | | | First dose on Sun11/04/18 at 0900 | | PST | | | | + +-------+ +-------+---+---+ +---+---+ | | | +---+---+ + + + +--------+-------+---+ | fentaNYL infusion 5 mcg/mL | Bolus | 11/04/2018 | 12.5 | 2.5 | | | 0-100 mcg/hr (0-20 mL/hr), | from Bag | 08:50 | mcg/hr | mL/hr | | | Intravenous, at 0-20 mL/hr, | | PST | | | | | Titrated, Starting 11/04/18 at | | | | | | | 0000, In emergent situations, | | | | | | | more rapid titration may be | | | | | | | clinically indicated. | | | | | | + + + +--------+-------+---+ + + +--------+---------+---+ | Bolus from Bag | 11/04/2018 | 12.5 | 2.5 | | | | 09:27 | mcg/hr | mL/hr | | | | PST | | | | + + +--------+---------+---+ | Rate/Dose Change | 11/04/2018 | 25 | 5 mL/hr | | | | 10:32 | mcg/hr | | | | | PST | | | | + + +--------+---------+---+ +---+---+ | | | +---+---+ + +-------+ +------+---+---+ | folic acid (FOLVITE) tablet 1 | Given | 11/05/2018 | 1 mg | | | | mg 1 mg, Oral, Daily, First dose | | 07:27 | | | | | on 11/04/18 at 1600 | | PST | | | | + +-------+ +------+---+---+ +-------+ +------+---+---+ | Given | 11/06/2018 | 1 mg | | | | | 08:52 | | | | | | PST | | | | +-------+ +------+---+---+ | Given | 11/07/2018 | 1 mg | | | | | 08:55 | | | | | | PST | | | | +-------+ +------+---+---+ +---+---+ | | | +---+---+ + +-------+ +-------+---+---+ | furosemide (LASIX) injection 40 | Given | 11/04/2018 | 40 mg | | | | mg 40 mg, Intravenous, Once, | | 09:23 | | | | | 11/04/18 at 1000, For 1 dose | | PST | | | | + +-------+ +-------+---+---+ +---+---+ | | | +---+---+ + +-------+ +-------+---+---+ | losartan (COZAAR) tablet 25 mg | Given | 11/04/2018 | 25 mg | | | | 25 mg, Oral, Daily, First dose | | 18:59 | | | | | on 11/04/18 at 1900 | | PST | | | | + +-------+ +-------+---+---+ +-------+ +-------+---+---+ | Given | 11/05/2018 | 25 mg | | | | | 17:06 | | | | | | PST | | | | +-------+ +-------+---+---+ | Given | 11/06/2018 | 25 mg | | | | | 17:58 | | | | | | PST | | | | +-------+ +-------+---+---+ +---+---+ | | | +---+---+ + +-------+ +-----+ +---+ | magnesium sulfate 1 g/50 mL | Given | 11/04/2018 | 1 g | 50 mL/hr | | | IVPB 1 g, Intravenous, | | 05:21 | | | | | Administer over 1 Hours, PRN, for | | PST | | | | | serum magnesium 1.9 to 2.1, | | | | | | | Starting 11/03/18 at 2319, | | | | | | | Recheck level immediately after | | | | | | | replacement and next am unless | | | | | | | previously ordered. | | | | | | + +-------+ +-----+ +---+ +---+---+ | | | +---+---+ + + + +---------+-------+---+ | norepinephrine in D5W 64 mcg/mL | Rate/Dos | 11/04/2018 | 6 | 5.6 | | | (LEVOPHED) 64 mcg/mL infusion | e Change | 07:46 | mcg/min | mL/hr | | | 0-30 mcg/min (0-28.125 mL/hr, | | PST | | | | | rounded to 0-28.1 mL/hr), | | | | | | | Intravenous, at 0-28.1 mL/hr, | | | | | | | Titrated, Starting 11/04/18 at | | | | | | | 0000, In emergent situations, | | | | | | | more rapid titration may be | | | | | | | clinically indicated. | | | | | | + + + +---------+-------+---+ + + +---------+-------+---+ | Rate/Dose Change | 11/04/2018 | 4 | 3.8 | | | | 09:28 | mcg/min | mL/hr | | | | PST | | | | + + +---------+-------+---+ | Rate/Dose Change | 11/04/2018 | 2 | 1.9 | | | | 10:15 | mcg/min | mL/hr | | | | PST | | | | + + +---------+-------+---+ + +---+ | | | + +---+ | nystatin (MYCOSTATIN) cream | | | Topical, 3 Times Daily PRN, to | | | rash in skin folds, Starting Sun | | | 11/03/18 at 2316 | | + +---+ | | | + +---+ | ondansetron (ZOFRAN) injection | | | 4 mg 4 mg, Intravenous, Every 6 | | | Hours PRN, Nausea, Vomiting, | | | Starting 11/03/18 at 2316 | | + +---+ | | | + +---+ | ondansetron (ZOFRAN-ODT) | | | disintegrating tablet 4 mg 4 mg, | | | Oral, Every 6 Hours PRN, Nausea, | | | Vomiting, Starting 11/03/18 at | | | 2316 | | + +---+ | | | + +---+ | petrolatum (LUBRIFRESH P.M.) | | | ophthalmic ointment Both Eyes, | | | PRN, Dry Eyes, to prevent eye | | | dryness, Starting 11/03/18 at | | | 2316 | | + +---+ | | | + +---+ + +-------+ +---------+---+---------+ | pneumococcal 23-valent vaccine | Given | 11/05/2018 | 0.5 mLs | | Right | | (PNEUMOVAX-23) latex free | | 09:00 | | | Deltoid | | injection 0.5 mL 0.5 mL, | | PST | | | | | Intramuscular, Once for | | | | | | | Immunization, 11/05/18 at 1000, | | | | | | | For 1 dose | | | | | | + +-------+ +---------+---+---------+ +---+---+ | | | +---+---+ + +-------+ +--------+ +---+ | potassium chloride 40 mEq in | Given | 11/05/2018 | 40 mEq | 25 mL/hr | | | 100 mL IVPB 40 mEq, Intravenous, | | 06:17 | | | | | Administer over 4 Hours, PRN, | | PST | | | | | for serum potassium 3.5 to 3.7, | | | | | | | Starting 11/03/18 at 2319, 1) | | | | | | | No telemetry monitoring, max rate | | | | | | | of infusion 10 mEq/hour. With | | | | | | | telemetry monitoring, max rate of | | | | | | | infusion 20 mEq/hour. 2) Recheck | | | | | | | level immediately after | | | | | | | replacement and next am unless | | | | | | | previously ordered. 3) Contact | | | | | | | physician if K+ > 5 or < 3. 4) If | | | | | | | any present contact physician | | | | | | | and verify use of protocol: | | | | | | | Dialysis, TPN, crush injury, | | | | | | | tumor lysis syndrome, hemolysis, | | | | | | | burn, rhabdomyolysis, DKA, UO < | | | | | | | 0.5ml/kg or 30 ml/hr x 2 hours or | | | | | | | Creatinine > 2 mg/dl. [facility] | | | | | | | LINE administration only! | | | | | | + +-------+ +--------+ +---+ + +---+ | | | + +---+ | propofol infusion [facility] | | | Starting 11/03/18 at 2330, For | | | 1 dose | | + +---+ | | | + +---+ + +---------+ +-------+---+---+ | propofol infusion 0-50 | New Bag | 11/03/2018 | 10 mg | | | | mcg/kg/min, Intravenous, | | 23:46 | | | | | Titrated, Starting Sun11/04/18 at | | PST | | | | | 0000 | | | | | | + +---------+ +-------+---+---+ +---+---+ | | | +---+---+ + + + + +-------+---+ | propofol infusion 0-50 | Rate/Dos | 11/04/2018 | 20 | 10.9 | | | mcg/kg/min | e Change | 08:11 | mcg/kg/m | mL/hr | | | 91 kg (0-27.3 mL/hr), | | PST | in | | | | Intravenous, at 0-27.3 mL/hr, | | | | | | | Titrated, Starting Sun11/04/18 at | | | | | | | 0100 | | | | | | + + + + +-------+---+ + + + +-------+---+ | Rate/Dose Change | 11/04/2018 | 15 | 8.2 | | | | 08:26 | mcg/kg/m | mL/hr | | | | PST | in | | | + + + +-------+---+ | Rate/Dose Change | 11/04/2018 | 10 | 5.5 | | | | 10:15 | mcg/kg/m | mL/hr | | | | PST | in | | | + + + +-------+---+ +---+---+ | | | +---+---+ + +-------+ +-------+---+---+ | spironolactone (ALDACTONE) | Given | 11/05/2018 | 25 mg | | | | tablet 25 mg 25 mg, Oral, Daily, | | 09:00 | | | | | First dose on Sun11/05/18 at 0900 | | PST | | | | + +-------+ +-------+---+---+ +-------+ +-------+---+---+ | Given | 11/06/2018 | 25 mg | | | | | 08:52 | | | | | | PST | | | | +-------+ +-------+---+---+ | Given | 11/07/2018 | 25 mg | | | | | 08:55 | | | | | | PST | | | | +-------+ +-------+---+---+ +---+---+ | | | +---+---+ + +-------+ +--------+---+---+ | thiamine (VITAMIN B-1) tablet | Given | 11/05/2018 | 100 mg | | | | 100 mg 100 mg, Oral, Daily, | | 07:28 | | | | | First dose on 11/04/18 at 1600 | | PST | | | | + +-------+ +--------+---+---+ +-------+ +--------+---+---+ | Given | 11/06/2018 | 100 mg | | | | | 08:52 | | | | | | PST | | | | +-------+ +--------+---+---+ | Given | 11/07/2018 | 100 mg | | | | | 08:55 | | | | | | PST | | | | +-------+ +--------+---+---+ +---+---+ | | | +---+---+ in this encounter
--- OUTSIDE RECORDS SUMMARY | ~2018-11-24 | XMS | Clinical Summary ---
Demographics + + + | Address | [address] | | | [place] [address] | + + + | Home Phone | | + + + | Preferred Language | Unknown | + + + | Marital Status | Unknown | + + + | Yarsanism Affiliation | Unknown | + + + | Race | Unknown | + + + | Ethnic Group | Unknown | + + + Author + + + | Author | [facility] | + + + | Organization | [facility] | + + + | Address | Unknown | + + + | Phone | Unavailable | + + + Support + + +---------+ + | Name | Relationship | Address | Phone | + + +---------+ + | Message,Detailed | ECON | Unknown | | + + +---------+ + | Aline Salinas | ECON | Unknown | | + + +---------+ + Care Team Providers + +------+ + | Care Employment Law Specialist Name | Role | Phone | + +------+ + | Daisy Jane PA-C | PP | | + +------+ + Allergies No Known Allergies Current Medications + + +--------+---------+------+------+-------+ | Prescription | Sig. | Disp. | Refills | Star | End | Statu | | | | | | t | Date | s | | | | | | Date | | | + + +--------+---------+------+------+-------+ | omeprazole | Take 20 mg by mouth | | | | | Activ | | (PRILOSEC) 20 MG EC | before breafast. | | | | | e | | tablet | | | | | | | + + +--------+---------+------+------+-------+ | | Take 3 mLs by | | | | | Activ | | ipratropium-albutero | nebulization as | | | | | e | | l (DUO-NEB) 0.5-2.5 | needed. | | | | | | | mg/3mL | | | | | | | + + +--------+---------+------+------+-------+ | aspirin 81 MG | Take 81 mg by mouth | | | | | Activ | | tablet | daily. | | | | | e | + + +--------+---------+------+------+-------+ | spironolactone | Take 1 tablet by | 30 | 11 | 03/0 | 03/0 | Activ | | (ALDACTONE) 25 MG | mouth daily. | tablet | | 8/20 | 03/22 | e | | tablet | | | | 19 | 20 | | + + +--------+---------+------+------+-------+ | digoxin (LANOXIN) | Take 1 tablet by | 30 | 11 | 03/1 | 03/1 | Activ | | 0.125 MG tablet | mouth daily. | tablet | | 3/20 | 2/20 | e | | | | | | 19 | 20 | | + + +--------+---------+------+------+-------+ | carvedilol (COREG) | Take 1 tablet by | 120 | 2 | 03/1 | | Activ | | 25 MG tablet | mouth 2 (two) times | tablet | | 3/20 | | e | | | daily with meals. | | | 19 | | | + + +--------+---------+------+------+-------+ | losartan (COZAAR) | Take 1 tablet by | 60 | 2 | 03/1 | 03/1 | Activ | | 50 MG tablet | mouth daily. | tablet | | 3/20 | 2/20 | e | | | | | | 19 | 20 | | + + +--------+---------+------+------+-------+ | torsemide | Take 1 tablet by | 60 | 2 | 03/2 | 03/1 | Activ | | (DEMADEX) 20 MG | mouth daily as | tablet | | 0/20 | 9/20 | e | | tablet | needed. For lower | | | 19 | 20 | | | | ext ankles edema or | | | | | | | | weight gain | | | | | | + + +--------+---------+------+------+-------+ | warfarin | Take 1 tablet by | 30 | 1 | 03/2 | 11/01 | Activ | | (COUMADIN) 5 MG | mouth daily. | tablet | | 0/20 | 9/20 | e | | tablet | | | | 19 | 20 | | + + +--------+---------+------+------+-------+ | HYDRALAZINE HCL PO | Take 25 mg by mouth | | | | 03/0 | Disco | | | 4 (four) times | | | | 7/20 | ntinu | | | daily. | | | | 19 | ed | + + +--------+---------+------+------+-------+ | losartan (COZAAR) | Take 50 mg by mouth | | | | 03/0 | Disco | | 100 MG tablet | daily. | | | | 7/20 | ntinu | | | | | | | 19 | ed | + + +--------+---------+------+------+-------+ | carvedilol (COREG) | Take 12.5 mg by | | | | 03/1 | Disco | | 25 MG tablet | mouth 2 (two) times | | | | 3/20 | ntinu | | | daily with meals. | | | | 19 | ed | + + +--------+---------+------+------+-------+ | AMLODIPINE | Take 5 mg by mouth | | | | 03/0 | Disco | | BESYLATE PO | daily. | | | | 7/20 | ntinu | | | | | | | 19 | ed | + + +--------+---------+------+------+-------+ | losartan (COZAAR) | Take 1 tablet by | 30 | 11 | 03/0 | 03/1 | Disco | | 25 MG tablet | mouth daily. | tablet | | 7/20 | 3/20 | ntinu | | | | | | 19 | 19 | ed | + + +--------+---------+------+------+-------+ | losartan (COZAAR) | Take 0.5 tablets by | 60 | 2 | 03/1 | 03/1 | Disco | | 50 MG tablet | mouth daily. | tablet | | 3/20 | 3/20 | ntinu | | | | | | 19 | 19 | ed | + + +--------+---------+------+------+-------+ | torsemide | Take 1 tablet by | 60 | 2 | 03/1 | 03/2 | Disco | | (DEMADEX) 20 MG | mouth daily. | tablet | | 3/20 | 0/20 | ntinu | | tablet | | | | 19 | 19 | ed | + + +--------+---------+------+------+-------+ Active Problems + + + | Problem | Noted Date | + + + | Acute combined systolic and diastolic congestive heart failure | 11/13/2018 | | (HCC) | | + + + | Atrial fibrillation with RVR ([facility]) | 11/03/2018 | + + + | Troponin level elevated | 11/03/2018 | + + + | Cerebrovascular accident (CVA) due to thrombosis of cerebral | 11/09/2017 | | artery ([facility]) | | + + + | Alcohol abuse | 05/03/2017 | + + + | History of methamphetamine abuse | 05/03/2017 | + + + | Alcohol dependence (HCC) | 06/01/2016 | + + + | COPD (chronic obstructive pulmonary disease) | 06/01/2016 | + + + | Essential hypertension, benign | 06/01/2016 | + + + | Hiccups | 06/01/2016 | + + + | Personal history of tobacco use, presenting hazards to health | 06/01/2016 | + + + | Gastroesophageal reflux disease | 06/01/2016 | + + + | Panlobular emphysema (HCC) | 01/20/2016 | + + + | Thoracic aortic aneurysm without rupture (HCC) | 01/20/2016 | + + + Resolved Problems + + + + | Problem | Noted | Resolved | | | Date | Date | + + + + | Cardiomegaly | 11/08/19 | | | | 19 | 9 | + + + + | SWEETIE (acute kidney injury) ([facility]) | 11/05/19 | | | | 19 | 9 | + + + + | Cardiogenic shock ([facility]) | 11/04/19 | | | | 19 | 9 | + + + + | Coronary artery disease | 06/01/20 | | | | 16 | 9 | + + + + | Elevated liver enzymes | 06/01/20 | | | | 16 | 8 | + + + + | Cough syncope | 06/01/20 | | | | 16 | 8 | + + + + Encounters +--------+ + + + + | Date | Type | Specialty | Care Team | Description | +--------+ + + + + | 11/20/ | Office | | Gabe Conrad, | Essential | | 2019 | Visit | | MD | hypertension, benign | | | | | | (Primary Dx); | | | | | | Atrial fibrillation | | | | | | with RVR ([facility]); | | | | | | Acute combined | | | | | | systolic and | | | | | | diastolic congestive | | | | | | heart failure | | | | | | ([facility]); Hiccups | +--------+ + + + + | 11/18/ | Documentati | | Adriane Berumen | Other (PCP chart | | 2019 | on Only | | THAO Jules | notes) | +--------+ + + + + | 11/13/ | Office | | Gabe Conrad, | Alcohol abuse | | 2019 | Visit | | MD | (Primary Dx); Atrial | | | | | | fibrillation with | | | | | | RVR ([facility]); Essential | | | | | | hypertension, | | | | | | benign; Acute | | | | | | combined systolic | | | | | | and diastolic | | | | | | congestive heart | | | | | | failure (HCC); | | | | | | Troponin level | | | | | | elevated | +--------+ + + + + | 11/03/ | Hospital | | Dony Verma MD | Cardiogenic shock | | 2019 - | Encounter | | Betty Perkins MD | (HCC) (Primary Dx) | | | | | | | | 11/07/ | | | | | | 2019 | | | | | +--------+ + + + + +---+ + | | Discharge | | | Summaries | | | - Maddie, | | | Betty Greenwood MD | | | - | | | 11/07/2018 | | | 5:19 AM | | | PST | | | Formatting | | | of this | | | note may be | | | different | | | from the | | | original.[facility] | | [facility]: | | | Hospitalist | | | Physician | | | Discharge | | | Summary | | | Patient | | | ID:Aline | | | VerrallMRN: | | | | | | [id number]/ | | | | | | y.o.Admit | | | date: | | | 11/03/2018Dis | | | charge | | | date: | | | 11/07/18Admit | | | ting | | | Physician: | | | Dony | | | Bayron, MD | | | Discharge | | | Physician: | | | Betty | | | Perkins, | | | MDConsultan | | | ts: | | | Treatment | | | Team: | | | Admitting | | | Provider: | | | Dony | | | Bayron, | | | MDPrimary | | | Discharge | | | Diagnoses: | | | Active | | | Problems: | | | Alcohol | | | dependence | | | (HCC) COPD | | | (chronic | | | obstructive | | | pulmonary | | | disease) | | | Coronary | | | artery | | | disease | | | Essential | | | hypertensio | | | n, benign | | | Personal | | | history of | | | tobacco | | | use, | | | presenting | | | hazards to | | | health | | | Alcohol | | | abuse | | | History of | | | methampheta | | | mine abuse | | | Panlobular | | | emphysema | | | (HCC) | | | Thoracic | | | aortic | | | aneurysm | | | without | | | rupture | | | (HCC) | | | Cardiomegal | | | yHPI and | | | Hospital | | | Course: | | | From HPI | | | Per ICU | | | Ellie Mcpherson | | | DATA WAREHOUSE ANALYST | | | 11/03/18The | | | patient is | | | a 53 | | | y.o. male | | | with | | | significant | | | past | | | medical | | | history of | | | COPD, HTN, | | | CVA, | | | alcohol | | | abuse | | | (historical | | | ly, was | | | drinking a | | | fifth of | | | hard liquor | | | per day, | | | but [facility] | | | documentati | | | on | | | indicates | | | he quit | | | years | | | ago), and | | | methampheta | | | mine | | | abuse who | | | presents in | | | transfer | | | from [facility] | | | where he | | | was being | | | treated for | | | new onset | | | atrial | | | fibrillatio | | | n | | | and cardio | | | genic | | | shock. He | | | originally | | | presented | | | to the | | | hospital in | | | [place] | | | after | | | waking up | | | on the | | | morning of | | | 3/2 with | | | severe | | | epigastric | | | pain | | | radiating | | | up his | | | chest. He | | | c/o | | | nausea, but | | | denied | | | vomiting. | | | In | | | [place], | | | he was | | | found to be | | | in Afib | | | with RVR, | | | and was | | | given a | | | cardizem | | | bolus. | | | Troponin | | | was | | | minimally | | | elevated at | | | this time, | | | and he was | | | | | | hemodynamic | | | ally | | | stable. | | | He was | | | transferred | | | to [facility] | | [facility] in | | | [place] | | | due to the | | | need for | | | cardiology | | | consult. | | | His | | | epigastric | | | pain had | | | resolved at | | | that time, | | | and | | | patient's | | | rate was | | | controlled | | | but | | | remained in | | | atrial | | | fib. | | | After | | | transfer to | | | [facility], | | | patient | | | remained on | | | the | | | cardizem | | | drip. A | | | drug screen | | | was done | | | which was | | | positive | | | for | | | cannabinoid | | | s and | | | opiates. | | | EKG | | | showed | | | atrial | | | fibrillatio | | | n with RVR, | | | left | | | anterior | | | fascicular | | | block, | | | anterosepta | | | l infarct | | | (age | | | undetermine | | | d), and | | | T-wave | | | abnormality | | | . A | | | transthorac | | | ic echo was | | | one on the | | | morning of | | | 11/03, and | | | patient was | | | found to | | | have an EF | | | of 20%, | | | which was | | | not | | | previously | | | known. | | | Cardiogen | | | ic shock, | | | developed | | | at [facility] | [facility] on | | | the | | | afternoon | | | of 11/03/18 | | | after being | | | on | | | Cardizem. | | | Patient | | | had to be | | | briefly | | | paced due | | | to | | | symptomatic | | | | | | bradycardia | | | with rate | | | down to the | | | 30s. | | | Patient | | | was started | | | on | | | dopamine, | | | norepinephr | | | ine, and | | | later added | | | | | | epinephrine | | | . The | | | oxyacetylene torch operator | | | service at | | | [facility] was | | | consulted, | | | and the | | | patient was | | | | | | transferred | | | to our ICU | | | for | | | further | | | management3 | | | For | | | DischargePa | | | tient | | | admitted, | | | per above | | | and | | | managed/kathy | | | gnosed | | | with:New | | | onset | | | atrial | | | fibrillatio | | | n with RVR | | | associated | | | with chest | | | pain on | | | presentatio | | | n and mild | | | troponin | | | elevation. | | | -Remains | | | in atrial | | | fib, rate- | | | controlled. | | | Denies | | | chest pain. | | | | | | -Troponin | | | trended | | | down - | | | likely | | | elevated | | | due to | | | demand | | | ischemia.-H | | | e denies | | | chest pain. | | | - Have | | | not started | | | on | | | anticoagula | | | tion due to | | | patient's | | | use of | | | alcohol and | | | math | | | use. Histo | | | ry of CVA. | | | -Continue | | | daily | | | aspirin. | | | History | | | of alcohol | | | dependence | | | and | | | methampheta | | | mine abuse. | | | Last | | | drink/ use | | | unknown. | | | Continued | | | CIWA | | | protocol.Pa | | | tient | | | educated | | | Cardio | | | myopathy w/ | | | ef | | | 20-25%-Appe | | | ars to be a | | | new | | | diagnosis. | | | Patient | | | found to | | | have an EF | | | of 20% | | | while at | | | [facility]. | | | Echo here | | | showed EF | | | 20-25% - | | | Cardiogenic | | | shock - | | | developed | | | in the | | | setting of | | | calcium | | | channel | | | jenise use | | | in pt with | | | | | | unrecognize | | | d | | | cardiomyopa | | | thy. | | | Resolved. | | | -Weaned | | | off | | | epinephrine | | | and | | | levophed on | | | 3/4. | | | -Patient | | | was | | | intubated | | | for airway | | | protection | | | in the | | | setting of | | | cardiogenic | | | shock. | | | Extubated | | | on | | | 3/4.-Contin | | | ued with | | | Spironolact | | | one, Coreg | | | and | | | Losartan. | | | Norvasc | | | started in | | | ICU has | | | been | | | discontinue | | | d. | | | Discussed | | | with | | | Cardiology- | | | Due to | | | patient's | | | alcohol and | | | meth use, | | | will not | | | start | | | anticoagula | | | tion at | | | this time. | | | Perhaps if | | | he stops, | | | this can be | | | | | | considered. | | | Coronary | | | artery | | | disease. | | | -Continue | | | aspirin. | | | -Lipid | | | panel was | | | checked at | | | [facility] | | | - all | | | values | | | normal. | | | Essenti | | | al | | | hypertensio | | | nAntihypert | | | ensives | | | were | | | restarted | | | with the | | | exception | | | of | | | Norvasc. T | | | horacic | | | aortic | | | aneurysm | | | without | | | rupture. | | | Mon | | | itor COPD/ | | | panlobular | | | emphysema. | | | - Not in | | | acute | | | exacerbatio | | | n.- | | | Albuterol | | | PRN | | | wheezing. | | | - | | | History of | | | tobacco use | | | - | | | documentati | | | on from [facility] | [facility] | | | states he | | | quit years | | | ago. | | | Epigast | | | irma pain on | | | | | | presentatio | | | n to first | | | facility. | | | - | | | Lipase/amyl | | | ase were | | | normal. - | | | Ultrasound | | | of abdomen | | | negative. | | | Denies | | | any | | | epigastric | | | pain. | | | History | | | of | | | elevated | | | liver | | | enzymes, | | | secondary | | | to alcohol | | | abuse. | | | Currently | | | | | | normal. | | | Educated | | | Acute | | | kidney | | | injury, | | | secondary | | | to | | | cardiogenic | | | shock. - | | | | | | Resolved.-R | | | enally dose | | | | | | medications | | | , avoid | | | nephrotoxin | | | s.-Monitore | | | d | | | electrolyte | | | s and | | | replace per | | | protocol. | | | Bibasilar | | | opacities | | | suspicious | | | for | | | pneumonia. | | | Continued | | | | | | ceftriaxone | | | for five | | | days- first | | | dose | | | received on | | | 3/[address] [facility] | [facility] . | | | Procalcit | | | onin was | | | normalRemai | | | armando | | | afebrile. | | | Blood | | | cultures | | | --showed no | | | growth. | | | Sepsi | | | s rulled | | | out All | | | questions | | | were | | | answered | | | for patient | | | who agreed | | | to plan. | | | Discharged | | | in stable | | | condition. | | | Prognosis | | | is guarded | | | in light of | | | severe | | | cardiomyopa | | | thy and | | | alcohol and | | | drug | | | use.Past | | | Medical | | | History: | | | Past | | | Medical | | | History | | | Diagnosis | | | Date | | | COPD | | | (chronic | | | obstructive | | | pulmonary | | | disease) | | | (HCC) | | | | | | Hypertensio | | | n No past | | | surgical | | | history on | | | file.Discha | | | rged | | | Condition: | | | Stable for | | | discharge | | | as stated | | | above.Signi | | | ficant | | | Diagnostic | | | Studies:Xr | | | Chest 1 | | | ViewResult | | | Date: | | | . | | | Right | | | basilar | | | infiltrate | | | versus | | | atelectasis | | | and small | | | right | | | effusion 2. | | | | | | Cardiomegal | | | y without | | | overt | | | failure 3. | | | Interval | | | extubation | | | and removal | | | of the | | | nasogastric | | | tube. | | | Signed by: | | | Arin, | | | Larry Sign | | | Date/Time: | | | 11/06/2018 | | | 2:24 PMUs | | | Abdomen | | | LimitedResu | | | lt Date: | | | . | | | Heterogeneo | | | us | | | thickened | | | gallbladder | | | wall. | | | Negative | | | sonographic | | | Harden | | | sign. No | | | shadowing | | | gallstones | | | evident. | | | No dilated | | | intrahepati | | | c or | | | extrahepati | | | c bile | | | ducts. 2. | | | Mild | | | hepatomegal | | | y. Minimal | | | ascites | | | fluid seen | | | adjacent to | | | the right | | | lobe of the | | | liver. | | | Signed by: | | | MD Jenifer, | | | Dr. Evans | | | Sign | | | Date/Time: | | | 11/04/2018 | | | 3:04 | | | AMDischarge | | | | | | Vitals:Celeste | | | ls: | | | 11/07/18 | | | 0259 | | | 11/07/18 | | | 0735 | | | 11/07/18 | | | 0855 | | | 11/07/18 | | | 1115 BP: | | | 139/87 (!) | | | 143/98 (!) | | | 144/99 (!) | | | 129/98 BP | | | Location: | | | Left | | | forearm | | | Left | | | forearm | | | Left | | | forearm | | | Left | | | forearm | | | Pulse: 87 | | | 105 97 100 | | | Resp: 20 18 | | | 18 Temp: | | | 98.3 F | | | (36.8 C) | | | 98.4 F | | | (36.9 C) | | | 98.6 F | | | (37 C) | | | TempSrc: | | | Axillary | | | Oral Oral | | | SpO2: 97% | | | 97% 95% | | | Weight: | | | Height: | | | Discharge | | | | | | Exam:Genera | | | l: Well | | | nourished.P | | | sych: | | | Alert and | | | oriented x | | | 3. Calm, | | | cooperative | | | .Cardiovasc | | | ular: | | | Regular | | | rate and | | | rhythm, no | | | murmurs, no | | | thrills. | | | Normal | | | PMI.Respira | | | tory: Clear | | | to | | | auscultatio | | | n, no | | | wheezing or | | | crackles, | | | breathing | | | non | | | labored.Gas | | | trointestin | | | al: Soft, | | | non-tender, | | | | | | non-distend | | | ed, | | | positive | | | bowel | | | sounds. No | | | HSM.Musculo | | | skeletal: | | | No edema in | | | bilateral | | | lower | | | extremities | | | . No joint | | | swelling.Sk | | | in: Warm | | | and dry, no | | | | | | rashes.Neck | | | : No JVD, | | | Trachea | | | midline.Olinda | | | rological: | | | Non focal. | | | Motor | | | grossly | | | intact.LABS | | | : Recent | | | LabsLab | | | | | | 3 | | | | | | 8 | | | | | | 6 WBC 6.70 | | | 6.32 8.02 | | | RBC 4.42 | | | 4.18* 4.32 | | | HGB 14.4 | | | 13.7 14.4 | | | HCT 44.5 | | | 41.9 43.2 | | | MCV 100.7* | | | 100.2* | | | 100.0 MCH | | | 32.5 32.7 | | | 33.3 MCHC | | | 32.3 32.7 | | | 33.3 RDW | | | 52.5 52.9 | | | 51.6 PLT | | | 212 189 189 | | | MPV 9.5 | | | 8.9 8.7 | | | DIFFTYPE | | | AUTOMATED | | | AUTOMATED | | | AUTOMATED | | | Recent | | | LabsLab | | | | | | 3 | | | | | | 8 | | | | | | 7 | | | | | | 6 NA 142 | | | 138 -- | | | 138 K 4.0 | | | 3.7 4.1 3.6 | | | CL 105 101 | | | -- 100 | | | CO2 28 27 | | | -- 26 BUN | | | 19 21 -- | | | 27* | | | CREATININE | | | 0.70 0.7 | | | -- 0.9 | | | PROT -- | | | -- -- | | | 5.5* | | | BILITOT -- | | | -- -- | | | 2.4* ALT | | | -- -- | | | -- 48 AST | | | -- -- | | | -- 26 GLUF | | | 129* 91 | | | -- 97 | | | Recent | | | LabsLab | | | | | | 8 | | | | | | 3 | | | | | | 2 CKTOTAL | | | 38* 32* 32* | | | TROPONINI | | | 0.113* | | | 0.139* | | | 0.168* | | | CKMBINDEX | | | 6.8 7.2 7.5 | | | Recent | | | [facility] | | | | | | 3 | | | | | | 8 | | | | | | 6 PHOS 3.6 | | | 3.1 3.4 | | | Recent | | | LabsLab | | | | | | 3 | | | | | | 8 | | | | | | 6 MG 1.9 | | | 2.1 2.2 | | | Invalid | | | input(s): | | | ABGDisposit | | | ion: | | | Follow | | | up:Mykel E | | | [place], | | | [id number] | | | [place] | | | [place] | | | [phone] | | | [phone] | | | [facility] | | | [facility] | | | [address] | | | [place] | | | [place] | | | [place] | | | [phone] | | | [phone] | | | In 4 days | | | Medication | | | List START | | | taking | | | these | | | medications | | | | | | spironolact | | | one 25 MG | | | tabletQTY: | | | 30 | | | tabletRefil | | | ls: | | | 11Commonly | | | known as: | | | ALDACTONETa | | | ke 1 tablet | | | by mouth | | | daily.Start | | | taking on: | | | 11/08/2018 | | | CHANGE how | | | you take | | | these | | | medications | | | losartan | | | 25 MG | | | tabletQTY: | | | 30 | | | tabletRefil | | | ls: | | | 11Commonly | | | known as: | | | COZAARTake | | | 1 tablet by | | | mouth | | | daily.What | | | changed: | | | medication | | | strength | | | how much to | | | take | | | CONTINUE | | | taking | | | these | | | medications | | | aspirin | | | 81 MG | | | tabletRefil | | | ls: 0 | | | carvedilol | | | 25 MG | | | tabletRefil | | | ls: | | | 0Commonly | | | known as: | | | COREG | | | ipratropium | | | -albuterol | | | 0.5-2.5 | | | mg/3mLRefil | | | ls: | | | 0Commonly | | | known as: | | | DUO-NEB | | | omeprazole | | | 20 MG EC | | | tabletRefil | | | ls: | | | 0Commonly | | | known as: | | | priLOSEC | | | You might | | | also be | | | taking | | | other | | | medications | | | not listed | | | above. If | | | you have | | | questions | | | about any | | | of your | | | other | | | medications | | | , talk to | | | the person | | | who | | | prescribed | | | them or | | | your | | | Primary | | | Care | | | Provider. | | | STOP | | | taking | | | these | | | medications | | | | | | AMLODIPINE | | | BESYLATE PO | | | | | | HYDRALAZINE | | | HCL PO | | | Where to | | | Get Your | | | Medications | | | These | | | medications | | | were sent | | | to [facility] | [facility] | | | [phone] - | | | [place], | | | [place] - [address] | | [address], | | | [place] | | | [place] [address] | | | Phone: | | | [phone] | | | 1 | | | losartan 25 | | | MG | | | tablet | | | spironolact | | | one 25 MG | | | tablet Betty | | | Perkins, | | | MD11/07/2018 | | | 1:58 | | | PMDischarge | | | took>30 | | | minutes, to | | | include | | | final | | | examination | | | , | | | discussion | | | of | | | admission, | | | and | | | preparation | | | of | | | prescriptio | | | ns, | | | instruction | | | s for | | | ongoing | | | care, | | | follow up | | | and | | | dictation | | | of summary. | +---+ + from Last 3 Months Immunizations + + + + | Name | Dates Previously Given | Next Due | + + + + | Pneumococcal | 11/05/2018 | | | Polysaccharide | | | | 23-valent | | | + + + + Social History + [...] on file | | + + + Last Filed Vital Signs + + + + | Vital Sign | Reading | Time Taken | + + + + | Blood Pressure | 98/60 | 11/20/2018 8:43 AM PDT | + + + + | Pulse | 90 | 11/20/2018 8:43 AM PDT | + + + + | Temperature | 37 C (98.6 F) | 11/07/2018 11:15 AM PST | + + + + | Respiratory Rate | 16 | 11/20/2018 8:43 AM PDT | + + + + | Oxygen Saturation | 97% | 11/20/2018 8:43 AM PDT | + + + + | Inhaled Oxygen | - | - | | Concentration | | | + + + + | Weight | 81.6 kg (180 lb) | 11/20/2018 8:43 AM PDT | + + + + | Height | 175.3 cm (5' 9") | 11/13/2018 1:25 PM PDT | + + + + | Body Mass Index | 26.58 | 11/20/2018 8:43 AM PDT | + + + + Plan of Treatment +--------+---------+ + + + | Date | Type | Specialty | Care Team | Description | +--------+---------+ + + + | 12/25/ | Office | | Gabe Conrad, | | | 2019 | Visit | | MD Carla Nichols | | | | | | [address], | | | | | | [place] [address] | | | | | | [phone] | | | | | | | | +--------+---------+ + + + + + + + + | Health Maintenance | Due Date | Last Done | Comments | + + + + + | Vaccine: | | | | | Dtap/Tdap/Td (1 - | 2 | | | | Tdap) | | | | + + + + + | Colon Cancer | | | | | Screening | 3 | | | | (Colonoscopy) | | | | + + + + + | Vaccine: Zoster (1 | | | | | of 2) | 3 | | | + + + + + | Statin Therapy | | | | | (optimal intensity) | 7 | | | + + + + + | Vaccine: Influenza | | | | | (#1) | 8 | | | + + + + + | Vaccine: | Completed | 11/05/2018 | | | Pneumococcal 19-64 | | | | | (PPSV23 only) Medium | | | | | Risk | | | | + + + + + Procedures + +--------+ + + + | [...] section. | + +--------+ + + + from Last 3 Months Results Echo cardiac adult complete (11/07/2018 9:35 [...] | + + + | Patient Name: Aline Domínguez Date of : 1965 | [facility] | | Performing Physician: Gabe [...] ml LALs A4C: 7.94 cm AR Dec Fergus: 2.59 m/s2 AR Dec | | | [...] TR maxP.56 mmHg TR Vmax: 2.57 m/s Applications Sales Consultant: ESTUARDO | | | Authenticated by: Gabe Conrad Report Date/Time: 11-07-2018 | | | 13:10:35 | | + + + + + | Procedure Note | + + | Osmin, Rad Results In - 11/07/2018 1:21 PM PST Patient Name: Fahad Domínguez of | | : 1965Accession: [id number] Physician: Gabe | | [facility] INDICATIONS------ | | -----cariomyopathyCONCLUSIONS 1. The left [...] mlLAESV Index (A-L): 59.37 ml/m2LAAs A2C: 32.31 la9LHAQT | | A-L A2C: 132.42 mlLALs A2C: 6.69 cmLAAs A4C: 29.99 ot1RSSJU A-L A4C: 96.05 | | mlLALs A4C: 7.94 cmAR Dec Fergus: 2.59 m/s2AR Dec Time: 1546.99 msAR maxP.22 | | mmHgAR PHT: 448.62 msAR Vmax: 4.00 m/sHR: 109.18 BPMAV maxP.06 mmHgAV | | meanP.76 mmHgAV Vmax: 1.00 m/Neymar Vmean: 0.81 m/Neymar VTI: 21.36 cmAVA Vmax: | | 2.99 cm2AVA (VTI): 2.00 dv3CYID Vmax: 0.00 cm2/m2AVAI (VTI): 0.00 cm2/m2LVOT | [...] |LALs A4C: 7.94 cm | |AR Dec Fergus: 2.59 m/s2 | |AR Dec Time: 1546.99 [...] |TR Vmax: 2.57 m/s | | | |Applications Sales Consultant: MW | |Authenticated by: Gabe Pined[place]olebrook | |Report Date/Time: 11-07-2018 13:10:35 | | [...] | + + + + + | [facility] | [address] | [place] [address] | | + + + + + PROCALCITONIN (11/07/2018 3:13 AM)Only the most recent of 2 results within the time period is included. + + + + + | Component | Value | Ref Range | Performed At | + + + + + | PROCALCITONIN | 0.19Comment: | <0.5 ng/mL | [facility] | | | INTERPRETIVE | | [...] performed | | | | | at [facility] | | | | | [address];[place] [address] | | | + + + + + + + + + + | Performing | Address | City/State/Zipcode | Phone Number | | Organization | | | | + + + + + | [facility] | [address] | [place] [address] | | + + + + + CBC w/auto diff (reflex to manual) (11/07/2018 3:13 AM)Only the most recent of 4 results w suryin the time period is included. + + + + + | Component [...] | [facility] | | | performed at [facility], [address] | | LABORATORY | | | [address] [facility], | | | | | [place] [address] | | | + + + + + + + | Specimen | + + | Blood | + + + + + + + | Performing | Address | City/State/Zipcode | Phone Number | | Organization | | | | + + + + + | [facility] | [address] | [place] [address] | [phone] | | LABORATORY | [address] | | | + + + + + Phosphorus (11/07/2018 3:13 AM)Only the most recent of 4 results within the time period is included. + + + + + | Component | Value | Ref Range | Performed At | + + + + + | PHOSPHORUS | 3.6Comment: Testing | 2.3 - 4.8 mg/dL | [facility] | | | performed at [facility];[address] | | | [address];[place] | | | | | [address] | | | + + + + + + + | Specimen | + + | Blood | + + + + + + + | Performing | Address | City/State/Zipcode | Phone Number | | Organization | | | | + + + + + | [facility] | [address] | [place] [address] | | + + + + + Magnesium (11/07/2018 3:13 AM)Only the most recent of 5 results within the time period is included. + + + + + | Component | Value | Ref Range | Performed At | + + + + + | MAGNESIUM | 1.9Comment: Testing | 1.7 - 2.4 mg/dL | [facility] | | | performed at [facility];[address];[place], [place] | | | | | [address] | | | + + + + + + + | Specimen | + + | Blood | + + + + + + + | Performing | Address | City/State/Zipcode | Phone Number | | Organization | | | | + + + + + | [facility] | [address] | [place] [address] | | + + + + + Basic metabolic panel (11/07/2018 3:13 AM)Only the most recent of 4 results within the is included. + + + + + | Component | Value | Ref Range | Performed At | + + + + + | SODIUM | 142 | 135 - 145 mmol/L | [facility] | + + + + + | POTASSIUM | 4.0 | 3.5 - 4.9 mmol/L | [facility] | + + + + + | CHLORIDE | 105 | 99 - 109 mmol/L | [facility] | + + + + + | CO2 | 28 | 23 - 32 mmol/L | [facility] [...] 0.70 | 0.70 - 1.30 mg/dL | [facility] | + + + + + | BUN/CREAT | 27 | | [facility] | + + + + + | CALCIUM | 8.3 (L) | 8.5 - 10.5 mg/dL | [facility] | + + + + + | EGFR | >60Comment: GFR <60: | >60 mL/min/1.73m2 | [facility] | | | CHRONIC KIDNEY DISEASE, [...] the | | | | | MDRD SCMS traceable | | | | | equation.Testing | | | | | performed at [facility];[address] | | | | | [facility];[place], [place] | | | | | [address] | | | + + + + + + + | Specimen | + + | Blood | + + + + + + + | Performing | Address | City/State/Zipcode | Phone Number | | Organization | | | | + + + + + | [facility] | [address] | [place] [address] | | + + + + + EKG STANDARD 12 LEAD (11/06/2018 2:06 PM) + + + + + | Component | Value | Ref Range | Performed At | + + + + + | Ventricular Rate | 110 | BPM | [facility] | + + + + + | Atrial Rate | 153 | BPM | [facility] | + + + + + | QRS Duration | 92 | ms | [facility] | + + + + + | Q-T Interval | 358 | ms | [facility] | + + + + + | QTC Calculation | 484 | ms | [facility] | | (Bezet) | | | | + + + + + | Calculated R [place] | -67 | degrees | [facility] | + + + + + | Calculated T [place] | 87 | degrees | [facility] | + + + + + | Diagnosis | Atrial fibrillation with | | [facility] | | | moderate ventricular | [...] | + + + + + | [facility] | [address] | [place] [address] | | + + + + + XR chest 1 view (11/06/2018 2:00 PM)Only the most recent of 2 results within the time rachel od is included. + + + | Impressions | Performed [...] + + + + + | [facility] | [address] | [place] [address] | | + + + + + Protime (11/05/2018 9:07 AM) + + + + + | Component | Value | Ref Range | Performed At | + + + + + | INR | 1.2Comment: REFERENCE | | [facility] | | | RANGE:0.9 - | [...] | | | | | performed at [facility] | | | | | [address] [facility];[place], [place] | | | | | [address] | | | + + + + + + + | Specimen | + + | Blood | + + + + + + + | Performing | Address | City/State/Zipcode | Phone Number | | Organization | | | | + + + + + | [facility] | [address] | [place] [address] | | + + + + + Potassium (11/05/2018 9:07 AM) + + + + + | Component | Value | Ref Range | Performed At | + + + + + | POTASSIUM | 4.1Comment: Testing | 3.5 - 4.9 mmol/L | [facility] | | | performed at [facility];[address];[place] | | | | | [address] | | | + + + + + + + | Specimen | + + | Blood | + + + + + + + | Performing | Address | City/State/Zipcode | Phone Number | | Organization | | | | + + + + + | [facility] | [address] | [facility] [address] | | + + + + + [...] | | | | | performed at [facility], [address] | | | | [facility] [address], | | | | | [place] [address] | | | + + + + + + + | Specimen | + + | Blood | + + + + + + + | Performing | Address | City/State/Zipcode | Phone Number | | Organization | | | | + + + + + | [facility] | [address] | [place] [address] | [phone] | | LABORATORY | [address] | | | + + + + + CK MB (11/04/2018 2:08 PM)Only the most recent of 3 results within the time period is incl uded. + + + + + | Component | Value | Ref Range | Performed At | + + + + + | MMB | 2.6 | 0.5 - 3.6 ng/mL | [facility] | + + + + + | CK-MB Index | 6.8Comment: CK INDEX | | [facility] | | | INTERPRETATION: | | [...] | | | | | performed at [facility] | | | | | [address];[place], [place] | | | | | [address] | | | + + + + + + + | Specimen | + + | Blood | + + + + + + + | Performing | Address | City/State/Zipcode | Phone Number | | Organization | | | | + + + + + | [facility] | [address] | [place] [address] | | + + + + + Troponin I (11/04/2018 2:08 PM)Only the most recent of 3 results within the time period is included. + + + + + | Component | Value | Ref Range | Performed At | + + + + + | TROPONIN I | 0.113 (H)Comment: 0.04 | 0.00 - 0.04 ng/mL | [facility] | | | ng/mL or | [...] performed | | | | | at [facility];[address] [place] [address] | | | | | Blvd;[place] [address] | | | + + + + + + + | Specimen | + + | Blood | + + + + + + + | Performing | Address | City/State/Zipcode | Phone Number | | Organization | | | | + + + + + | [facility] | [address] | [place] [address] | | + + + + + CPK (11/04/2018 2:08 PM)Only the most recent of 3 results within the time period is includ ed. + + + + + | Component | Value | Ref Range | Performed At | + + + + + | CPK | 38 (L)Comment: Testing | 55 - 400 U/L | [facility] | | | performed at [facility];[address];[place] | | | | | [address] | | | + + + + + + + | Specimen | + + | Blood | + + + + + + + | Performing | Address | City/State/Zipcode | Phone Number | | Organization | | | | + + + + + | [facility] | [address] | [place] [address] | | + + + + + [...] + + + + + | [facility] | [address] [facility] [address] | [place] [address] | | + + + + + Blood Culture Set 2 (11/04/2018 1:13 AM) + + + + + | Component | Value | Ref Range | Performed At | + + + + + | Specimen Description | BLOOD | | [facility] | | | | | LABORATORY | + + + + + | SPECIAL REQUESTS | LAC | | [facility] | + + + [...] | + + + + + | [facility] | [address] | [place] [address] | [phone] | | LABORATORY | [address] | | | + + + + + | [facility] | [address] | [place] [address] | | + + + + + Blood Culture Set 1 (11/04/2018 1:12 AM) + + + + + | Component | Value | Ref Range | Performed At | + + + + + | Specimen Description | BLOOD | | [facility] | | | | | LABORATORY | + + + + + | SPECIAL REQUESTS | RT ARM | | [facility] | + + + [...] | + + + + + | [facility] | [address] | [place] [address] | [phone] | | LABORATORY | [address] | | | + + + + + | [facility] | [address] | [place] [address] | | + + + + + Lipase (11/04/2018 1:12 AM) + + + + + | Component | Value | Ref Range | Performed At | + + + + + | LIPASE | 26Comment: NOTE NEW | 12 - 53 U/L | [facility] | | | REFERENCE RANGETesting | | | | | performed at [facility];[address] | | | | | [address];[place] | | | | | [address] | | | + + + + + + + | Specimen | + + | Blood | + + + + + + + | Performing | Address | City/State/Zipcode | Phone Number | | Organization | | | | + + + + + | [facility] | [address] | [place] [address] | | + + + + + Lactic acid (11/04/2018 1:12 AM) + + + + + | Component | Value | Ref Range | Performed At | + + + + + | LACTIC ACID | 1.1Comment: Testing | 0.4 - 2.0 mmol/L | [facility] | | | performed at [facility] | | | | | [address];[place] | | | | | [address] | | | + + + + + + + | Specimen | + + | Blood | + + + + + + + | Performing | Address | City/State/Zipcode | Phone Number | | Organization | | | | + + + + + | [facility] | [address] | [place] [address] | | + + + + + Amylase (11/04/2018 1:12 AM) + + + + + | Component | Value | Ref Range | Performed At | + + + + + | AMYLASE | 38Comment: Testing | 25 - 115 U/L | [facility] | | | performed at [facility];[address];[place] | | | | | [address] | | | + + + + + + + | Specimen | + + | Blood | + + + + + + + | Performing | Address | City/State/Zipcode | Phone Number | | Organization | | | | + + + + + | [facility] | [address] | [place] [address] | | + + + + + MRSA by PCR (11/04/2018 12:13 AM) + + + + + | Component | Value | Ref Range | Performed At | + + + + + | SOURCE | NARES(NOSE) | | [facility] | + + + + + | MRSA PCR | NEGATIVEComment: Testing | NEGATIVE | [facility] | | | performed at [facility];[address] | | | | | [address];[place] | | | | | [address] | | | + + + + + + + | Specimen | + + | Nasopharyngeal - | | Nasopharyngeal | | Culture | + + + + + + + | Performing | Address | City/State/Zipcode | Phone Number | | Organization | | | | + + + + + | [facility] | [address] | [place] [address] | | + + + + + POC Arterial Blood Gas (11/03/2018 11:43 PM) + + + + + | Component | Value | Ref Range | Performed At | + + + + + | POC FIO2 | 50 | % | [facility] | + + + [...] (H) | 0.0 - 2.0 mmol/L | [facility] | + + + + + | POC S02 | 98 | 95 - 98 % | [facility] | + + + + + | POC COMMENTS | Oliver Test not | | [facility] | | | indicatedComment: Site = | | | | | left radialTesting | | | | | performed at [facility];[address];[place] | | | | | [address] | | | + + + + + + + + + + | Performing | Address | City/State/Zipcode | Phone Number | | Organization | | | | + + + + + | [facility] | [address] | [place] [address] | | + + + + + POCT glucose (11/03/2018 11:11 PM) + + + + + | Component | Value | Ref Range | Performed At | + + + + + | GLUCOSE,POC SCREEN | 174 (H)Comment: Testing | 65 - 99 mg/dL | [facility] | | | performed at [facility];[address] | | | | | [address];[place] | | | | | [address] | | | + + + + + + + + + + | Performing | Address | City/State/Zipcode | Phone Number | | Organization | | | | + + + + + | [facility] | [address] | [place] [address] | | + + + + + from Last 3 Months Insurance + +--------+ +------+-------+ + | Payer | Benefi | Subscriber | Type | Phone | Address | | | t Plan | ID | | | | | | / | | | | | | | Group | | | | | + +--------+ +------+-------+ + | MEDICAID | [employer] | [id number] | | | [address] | | | [address] | | | | [place], [place] | | | [place] | | | | [address] | | | CHARGE OUT CLERK | | | | | + +--------+ +------+-------+ + + +--------+ +--------+ + + | Guarantor Name | Accoun | Relation to | Date | Phone | Billing Address | | | t Type | Patient | of | | | | | | | | | | + +--------+ +--------+ + + | ALINE DOMÍNGUEZ | Person | Self [birth year] | Work: | [address] | | | [employer] | | 1965 | [phone] | [address] | | | [employer] | | | [address]: | [address] | | | | | | | | | | | | | [phone] | | | | | | | 4334 | | + +--------+ +--------+ + +
--- OUTSIDE RECORDS SUMMARY | ~2018-11-24 | XMS | Encounter Summary ---
Demographics + + + | Address | [address] | | | [place] [address] | + + + | Home Phone | | + + + | Preferred Language | Unknown | + + + | Marital Status | Unknown | + + + | Druze Affiliation | Unknown | + + + | Race | Unknown | + + + | Ethnic Group | Unknown | + + + Author + + + | Author | [email or web address] | + + + | Organization | [email or web address] | + + + | Address | [...] Team Providers + +------+ + | Care Emergency Doctor Name | Role | Phone | + +------+ + | Daisy Jane PA-C | PCP | | + +------+ + Reason for Referral Anticoagulation Management (Routine) + +--------+ + + + + | Status | Reason | Specialty | Diagnoses / | Referred By | Referred To | | | | | Procedures | Contact | Contact | + +--------+ + + + + | Authorized | | Anticoagulati | Diagnoses | Raya Persaud | | | | on | Atrial | [facility] | | | | | fibrillation | [address] | | | | | with RVR | [address] | [facility] | | | | | (HCC) Acute | [address] | [facility] | | | | | combined | [address] | [address] | | | | | systolic and | [address] | [place], [place] | | | | | diastolic | Phone: | [phone] | | | | | congestive | [phone] | Phone: | | | | | heart | Fax: | [phone] | | | | | failure | [phone] | Fax: | | | | | (HCC) | | [phone] | | | | | Procedures | | | | | | | PROTHROMBIN | | | | | | | TM | | | + +--------+ + + + + Reason for Visit + + + | Reason | Comments | + + + | Follow-up | | + + + Consult and Treat (Routine) + + + + + + + | Status | Reason | Specialty | Diagnoses / | Referred By | Referred To | | | | | Procedures | Contact | Contact | + + + + + + + | Authorized | Specialty | Cardiology | Diagnoses | [facility], | [place], | | | Services | | Cardiogenic | Betty Greenwood MD | [facility] | | | Required | | shock (HCC) | [address] | [address] | [address] | [address] | | | | | | [place], [place] | [place], [place] | | | | | | [address] | [address] Phone: | | | | | | Phone: | [phone] | | | | | | [phone] | Fax: | | | | | | Fax: | [phone] | | | | | | [phone] | | + + + + + + + Encounter Details +--------+---------+ + + + | Date | Type | Department | Care Team | Description | +--------+---------+ + + + | 11/20/ | Office | [facility] | Gabe Persaud, | Essential | | 2019 | Visit | Cardiology [place] | [address] | hypertension, benign | | | | [address] | [address], | (Primary Dx); | | | | [address] | [place] [address] | Atrial fibrillation | | | | [place] [address] | [phone] | with RVR ([facility]); | | | | [phone] | | Acute combined | | | | | | systolic and | | | | | | diastolic congestive | | | | | | heart failure | | | | | | ([facility]); Hiccups | +--------+---------+ + + + Social History + +-------+ [...] | Temperature | - | - | + + + + | Respiratory [...] | Height | - | - | + + + + | Body Mass Index | 26.58 | 11/20/2018 8:43 AM PDT | + + + + in this encounter Instructions Patient Instructions - Gabe Persaud MD - 11/20/2018 9:00 AM PDTTake Torsemide/water pill as needed once a day for weight gain more than 5 pounds or lower ext ankles edema. Bloa ting or congestion in the lungs. We need to evaluate you heart, coronary angiogram, heart catheterization to study if you herman ve any blockages. Procedure is done in [facility]. You need a ride to and from the hospital. Usually outpatient procedure. In future will consider getting your heart back in rhythm. in this encounter Progress Notes Gabe Persaud MD - 11/20/2018 9:00 AM PDTFormatting of this note may be different fro m the original. Date of visit: 11/20/2018 Primary Care Physician: Daisy Jane CHIEF COMPLAINT: Chief Complaint Patient presents with Follow-up HISTORY OF PRESENT ILLNESS: Taurus is 53 y.o. presented to follow-up visit. Symptoms improved significantly since last week. Lost 20 pounds. Seen on 11/13/2018 was in acute congestive heart failure, atrial fibrillation with RVR. Pre mature discharge from the hospital. Was started on Torsemide, increased carvedilol and losartan doses, added digoxin. Was hospitalized initially and [facility] in November 2018 secondary to atrial fibrilla tion and rapid ventricular response. Was treated with diltiazem IV, that caused hypotension and cardiogenic shock then transferr ed to [facility] for cardiac evaluation despite the fact that [facility] have ca rdiology service. Patient was admitted to intensive care unit. Was treated with medical management. Of note on his admission to [facility] he was tested positive for cannabinoids and o piates. Previously evaluated for left sided chest pain usually once a week. Unfortunately his alcohol intake is daily. Also he smokes marijuana which helps in his bernardino thing. Had CT of the chest to evaluate his pulmonary status, incidentally coronary calcifications were detected and hence cardiology evaluation was recommended. Has history of hypertension which he takes losartan, carvedilol and hydralazine. Past medical history, SH, FH, and medications were reviewed in the chart. Medications: Outpatient Encounter Prescriptions as of 11/20/2018 Medication Sig Dispense Refill aspirin 81 MG tablet Take 81 mg by mouth daily. carvedilol (COREG) 25 MG tablet Take 1 tablet by mouth 2 (two) times daily with meals. 120 tablet 2 digoxin (LANOXIN) 0.125 MG tablet Take 1 tablet by mouth daily. 30 tablet 11 ipratropium-albuterol (DUO-NEB) 0.5-2.5 mg/3mL Take 3 mLs by nebulization as needed. losartan (COZAAR) 50 MG tablet Take 1 tablet by mouth daily. 60 tablet 2 omeprazole (PRILOSEC) 20 MG EC tablet Take 20 mg by mouth before breafast. spironolactone (ALDACTONE) 25 MG tablet Take 1 tablet by mouth daily. 30 tablet 11 torsemide (DEMADEX) 20 MG tablet Take 1 tablet by mouth daily as needed. For lower ext ankles edema or weight gain 60 tablet 2 [DISCONTINUED] torsemide (DEMADEX) 20 MG tablet Take 1 tablet by mouth daily. 60 tablet 2 warfarin (COUMADIN) 5 MG tablet Take 1 tablet by mouth daily. 30 tablet 1 No facility-administered encounter medications on file as of 11/20/2018. Allergies No Known Allergies REVIEW OF SYSTEMS: Constitutional: Improved with less fatigue. HEENT: Negative for nosebleeds, ear discharge, nasal congestion or soar throat. Eyes: Negative for visual disturbance, redness, or secretion. Respiratory: Denies any cough. Cardiovascular: as HPI. Gastrointestinal: Negative for nausea, vomiting, diarrhea, abdominal pain and blood in stoo l. Hiccups improved. Genitourinary: Negative for dysuria or hematuria. Musculoskeletal: Chronic arthritic pain. Skin: Negative for rash. Neurological: Negative for dizziness. No numbness. No recent falls. No slurred speech. Hematological: No significant bruising. Psychiatric/Behavioral: No depression or anxiety. PHYSICAL EXAM Vital Signs: BP 98/60 | Pulse 90 | Resp 16 | Wt 81.6 kg (180 lb) | SpO2 97% | BMI 26.58 kg/m GENERAL APPEARANCE: Alert, oriented, cooperative, no distress, appears stated age. HEENT: Extraocular movements were intact. No jaundice. Pupiles round and reactive. NECK: Positive for JVD, no lymphadenopathy. Carotid upstrokes normal. No carotid bruit hear d. CARDIAC: Irregular irregular, controlled rate. CHEST: Bibasilar crackles both lung poole. ABDOMEN: Soft.No tenderness or guarding. Liver is detected below the rib cage. Active bowel sounds. EXTREMITIES: Lower extremity edema resolved. NEURO: Alert and oriented times three with no focal deficit. Cranial nerves are grossly no rmal. SKIN: Warm and dry. No rash. Psych: Normal affect and mood. DATA 06/08/2017 WBC 5.6, hemoglobin 14.6, platelets 180, sodium 139, potassium 3.4, chloride 102, bicarbona te 24, glucose 104, BUN 12, creatinine 0.61. AST 105, AST 106, alk phos 68. Lab Results Component Value Date/Time NA 142 11/07/2018 03:13 AM NA 138 11/06/2018 04:08 AM NA 138 11/05/2018 04:16 AM K 4.0 11/07/2018 03:13 AM K 3.7 11/06/2018 04:08 AM K 4.1 11/05/2018 09:07 AM CO2 28 11/07/2018 03:13 AM CO2 27 11/06/2018 04:08 AM CO2 26 11/05/2018 04:16 AM BUN 19 11/07/2018 03:13 AM BUN 21 11/06/2018 04:08 AM BUN 27 (H) 11/05/2018 04:16 AM CREATININE 0.70 11/07/2018 03:13 AM CREATININE 0.7 11/06/2018 04:08 AM CREATININE 0.9 11/05/2018 04:16 AM MG 1.9 11/07/2018 03:13 AM MG 2.1 11/06/2018 04:08 AM MG 2.2 11/05/2018 04:16 AM Lab Results Component Value Date/Time WBC 6.70 11/07/2018 03:13 AM WBC 6.32 11/06/2018 04:08 AM WBC 8.02 11/05/2018 04:16 AM HGB 14.4 11/07/2018 03:13 AM HGB 13.7 11/06/2018 04:08 AM HGB 14.4 11/05/2018 04:16 AM HCT 44.5 11/07/2018 03:13 AM HCT 41.9 11/06/2018 04:08 AM HCT 43.2 11/05/2018 04:16 AM MCV 100.7 (H) 11/07/2018 03:13 AM MCV 100.2 (H) 11/06/2018 04:08 AM MCV 100.0 11/05/2018 04:16 AM PLT 212 11/07/2018 03:13 AM PLT 189 11/06/2018 04:08 AM PLT 189 11/05/2018 04:16 AM Lab Results Component Value Date GLUF 129 (H) 11/07/2018 GLUF 91 11/06/2018 EC11/06/2018 Last Echo: 11/07/2018 LV is normal in size, mild left ventricular hypertrophy, severely impaired systolic functio n EF 20-25%. RV is severely enlarged with severely impaired systolic function. Moderate TR with mild pul monary hypertension RVSP 41 mmHg Last Stress test: 03/20/2018 Reported with normal LV size and function. No evidence of reversible defect to suggest isch emia. Last Cath: Last US carotid: ASSESSMENT: Patient is 53 y.o. with the following medical problems: 1. Chronic systolic and diastolic congestive heart failure, currently euvolemic NYH class I I-III, stage C. 2. Persistent atrial fibrillation, persistent CHADSVASc of 3. 3. Coronary calcification, seen incidentally on CT of the chest. 4. History of alcohol abuse, 5-10 drinks a night. No drink since hospitalization. 5. Tobacco abuse. 6. Chronic obstructive pulmonary disease. 7. Hypertension currently blood pressure is controlled. 8. Frequent hiccups. Plan: Patient improved after adding diuretic. Currently he seems euvolemic. Will be instructed to take torsemide 20 mg po q day as needed for lower extremity edema or increased weight. We will continue on spironolactone 25 mg, losartan 50 mg, carvedilol 25 mg bid and digoxin 0.125 mg daily. Warfarin is started and patient will be referred for warfarin clinic in [place]. I discussed with the patient anticoagulation direct versus anti-vitamin K. Discussed proceeding with coronary angiogram to evaluate coronary anatomy. Risks and benefits were reviewed. Unfortunately patient was discharged before optimization of medical therapy. Not even on an ticoagulation. Patient again consult with regarding alcohol intake and smoking cessation Follow-up in 4 week or earlier if any change in clinical status. *This report has been prepared using a voice recognition system. The report was reviewed fo r accuracy, however, sound-alike word errors, addition and/or deletions may occur. If there is any question about this report please contact me. Gabe Persaud MD, MPHin this encounter Plan of Treatment +--------+---------+ + + + | Date | Type | Specialty | Care Team | Description | +--------+---------+ + + + | 12/25/ | Office | Cardiology | Gabe Persaud, | | | 2019 | Visit | | MD Carla Nichols | | | | | | Dr [address], | | | | | | [place] [address] | | | | | | [phone] | | | | | | | | +--------+---------+ + + + + +--------+ + + | Name | Priori | Associated Diagnoses | Order Schedule | | | ty | | | + +--------+ + + | CL left heart catheterization | Routin | Essential | Ordered: 11/20/2018 | | with coronary angio | e | hypertension, benign | | | | | Atrial | | | | | fibrillation with | | | | | RVR ([facility]) Acute | | | | | combined systolic | | | | | and diastolic | | | | | congestive heart | | | | | failure ([facility]) | | + +--------+ + + + +--------+ + + | Name | Priori | Associated Diagnoses | Order Schedule | | | ty | | | + +--------+ + + | AMB Referral Extension for | Routin | Atrial | Ordered: 11/20/2018 | | Anticoag | e | fibrillation with | | | | | RVR ([facility]) Acute | | | | | combined systolic | | | | | and diastolic | | | | | congestive heart | | | | | failure ([facility]) | | + +--------+ + + as of this encounter Visit Diagnoses + + | Diagnosis | + + | Essential hypertension, benign - Primary | + + | Atrial fibrillation with RVR (HCC) | + + | Atrial fibrillation | + + | Acute combined systolic and diastolic congestive heart failure (HCC) | + + | Acute combined systolic and diastolic heart failure | + + | Hiccups | + + | Hiccough | + +"
--- OUTSIDE RECORDS SUMMARY | ~2018-11-24 | XMS | Encounter Summary ---
Demographics + + + | Address | [address] | | | [place] [address] | + + + | Home Phone | | + + + | Preferred Language | Unknown | + + + | Marital Status | Unknown | + + + | Islam Affiliation | Unknown | + + + | Race | Unknown | + + + | Ethnic Group | Unknown | + + + Author + + + | Author | [facility] | + + + | Organization | [facility] | + + + | Address | [...] Team Providers + +------+ + | Care Cinder Man Name | Role | Phone | + [...] F | | | | | | [place], [place] | [place] | | | | | | [address] | [address] Phone: | | | | | | Phone: | [phone] | | | | | | [phone] | Fax: | | | | | | Fax: | [phone] | | | | | | [phone] | | + + + + + [...] | | | | | | | [place], [place] | | | | | | | [address] Phone: | | | | | | | [phone] | | | | | | | Fax: | | | | | | | [phone] | +--------+--------+ + + + + Encounter Details +--------+ + + + + | Date | Type | Department | Care Team | Description | +--------+ + + + + | 11/03/ | Hospital | Merged With [facility] | Dony Verma MD | Cardiogenic shock | | 2019 - | Encounter | [facility] 7th | [address] | ([facility]) (Primary Dx) | | | | [address] | [place] [address] | | | 11/07/ | | [address] | [phone] | | | 2019 | | [place] [address] | | | | | | [phone] | Betty Perkins MD | | | | | | [address] | | | | | | [place] [address] | | | | | | [phone] | | | | | | | [...] note may be different from the original. [facility] Service: Hospitalist Physician Discharge Summary Patient ID: [...] fifth of hard liquor per day, but [facility] docum entation indicates he quit years ago),and methamphetamine abusewho presents in transfer from [place] where he was being treated for new onset atrial fibrillation andcardiogeni c shock. He originally presented to the hospital in [place] after waking up on the morni ng of 11/02 with severe epigastric pain radiating up his chest. He c/o nausea, but denied vo miting. In [place], he was found to be in Afib with RVR, and was given a cardizem bolus. Troponin was minimally elevated at this time, and he was hemodynamically stable. He was transferred to [facility] in [place] due to the need for cardiology consult. His epig astric pain had resolved at that time, and patient's rate was controlled but remained in atr ial fib. After transfer to [place], patient remained on the cardizem drip. A [...] not previously known. Cardiogenic shock, developed at [place] on the afternoon of 11/03/18 after being on Cardizem. Patient had to be briefly paced due t o symptomatic bradycardia with rate down to the 30s. Patient was started on dopamine, nore pinephrine, and later added epinephrine. The full time staff interpreter service at [facility] was consulted, and the patient [...] have an EF of 20% while at [place]. Echo here showed EF 20-25% -Cardiogenic shock [...] -Continue aspirin. -Lipid panel was checked at [place] - all values normal. Essential hypertension Antihypertensives were restarted with the exception of Norvasc. Thoracic aortic aneurysm without rupture. Monitor COPD/ panlobular emphysema. - Not in acute exacerbation. - Albuterol PRN wheezing. - History of tobacco use - documentation from [place] states he quit years ago. Epigastric pain [...] days- first dose received on 11/03 at [place] . Procalci tonin was normal Remained afebrile. [...] Mykel Hernandez, [address] [place] [address] In 3 days [facility] [address] [place] [facility] [address] In 4 days Medication List START [...] Your Medications These medications were sent to [id number] - [place], [place] - [address] [address] losartan 25 MG tablet spironolactone 25 MG [...] tomorrow regardless. ordered an Echo today, but physical therapy technician's sched ule was full, and was unable to see Pt today. They said that they would try to see Pt in a. m. No acute changes in Pt's status today. Chart check done. JASON BANKS Dawn M, MD - 11/06/2018 5:33 AM PSTFormatting of this note may be different from the original. [facility] Service: Hospitalist Progress Note Hospital Day: LOS: 3 days SUBJECTIVE Patient Summary: From HPI Per ICU Ellie Ky WILLEM 11/03/18 The patient is a 53 y.o. male with significant past medical history of COPD, HTN, CVA, alco hol abuse (historically, was drinking a fifth of hard liquor per day, but [place] documen tation indicates he quit years ago), and methamphetamine abuse who presents in transfer from [place] where he was being treated for new onset atrial fibrillation and cardiogenic ирина ck. He originally presented to the hospital in [place] after waking up on the morning of 11/02 with severe epigastric pain radiating up his chest. He c/o nausea, but denied vomiting. In [place], he was found to be in Afib with RVR, and was given a cardizem bolus. Tropon in was minimally elevated at this time, and he was hemodynamically stable. He was transferr ed to [facility] in [place] due to the need for cardiology consult. His epigastric pain had resolved at that time, and patient's rate was controlled but remained in atrial fib. After transfer to [place], patient remained on the cardizem drip. A [...] not previously known. Cardiogenic shock, developed at [place] on t he afternoon of 11/03/18 after being on Cardizem. Patient had to be briefly paced due to symp tomatic bradycardia with rate down to the 30s. Patient was started on dopamine, norepinephr ine, and later added epinephrine. The full time staff interpreter service at [facility] was consulted, and the patient [...] have an EF of 20% while at [place], so Cardizem was stopped. -Cardiogenic shock - developed in the setting of calcium channel jenise use in pt with unr ecognized cardiomyopathy. Resolved. -Weaned off epinephrine and levophed on 11/04. -Patient was intubated for airway protection in the setting of cardiogenic shock. Extubate d on 11/04. Cardiac Diet Coronary artery disease. -Continue aspirin. -Lipid panel was checked at [place] - all values normal. Essential hypertension Antihypertensives were restarted - amlodipine, carvedilol, losartan. Thoracic aortic aneurysm without rupture. Monitor COPD/ panlobular emphysema. - Not in acute exacerbation. - Albuterol PRN wheezing. - History of tobacco use - documentation from [place] states he quit years ago. Epigastric pain [...] - first dose received on 11/03 at [place] - stop date 11/07. Procalcit onin was slightly elevated, will recheck Remains afebrile. Recheck Chest xray Blood cultures in process--showing no growth. Disposition: Code Status: Full Code Betty Perkins MD 11/06/2018 5:33 AM Betty Perkins MD - 11/05/2018 8:55 AM PSTFormatting of this note may be different from the original. [facility] Service: Hospitalist Progress Note Hospital Day: LOS: 2 days SUBJECTIVE Patient Summary: From HPI Per ICU Ellie Mcpherson WILLEM 11/03/18 The patient is a 53 y.o. male with significant past medical history of COPD, HTN, CVA, alco hol abuse (historically, was drinking a fifth of hard liquor per day, but [place] documen tation indicates he quit years ago), and methamphetamine abuse who presents in transfer from [place] where he was being treated for new onset atrial fibrillation and cardiogenic ирина ck. He originally presented to the hospital in [place] after waking up on the morning of 11/02 with severe epigastric pain radiating up his chest. He c/o nausea, but denied vomiting. In [place], he was found to be in Afib with RVR, and was given a cardizem bolus. Tropon in was minimally elevated at this time, and he was hemodynamically stable. He was transferr ed to [facility] [place] in [place] due to the need for cardiology consult. His epigastric pain had resolved at that time, and patient's rate was controlled but remained in atrial fib. After transfer to [place], patient remained on the cardizem drip. A [...] not previously known. Cardiogenic shock, developed at [place] on t afternoon of 11/03/18 after being on Cardizem. Patient had to be briefly paced due to symp tomatic bradycardia with rate down to the 30s. Patient was started on dopamine, norepinephr ine, and later added epinephrine. The full time staff interpreter service at [facility] was consulted, and the patient [...] an EF of 20% whil e at [place], so Cardizem was stopped. Cardiogenic shock - developed in the setting of calcium channel jenise use in pt with u nrecognized cardiomyopathy. Resolving. Weaned off epinephrine and levophed on 11/04. Coronary artery disease. Continue aspirin. Lipid panel was checked at [place] - all values normal. Essential hypertension. Antihypertensives were restarted - amlodipine, carvedilol, losa rtan. Thoracic aortic aneurysm without rupture. PULM: Patient was intubated for airway protection in the setting of cardiogenic shock. Extuba rao on 11/04. COPD/ panlobular emphysema. Albuterol PRN wheezing. History of tobacco use - documentation from [place] states he quit years ago. GI/NUTRITION: Epigastric [...] first dose receive d on 11/03 at [place] - stop date 11/07. Procalcitonin slightly elevated. Remains afebrile. Blood cultures in process. HEME: No anemia or thrombocytopenia. CBC daily. ENDO: TSH normal at [place]. Implement Endotool if indicated per ICU protocol. MUSC/SKIN: PT/OT/mobilize patient as able. Skin care and pressure ulcer prevention per nursing standards. PROPHYLAXIS: Stress ulcer prophylaxis: no longer indicated DVT prophylaxis: enoxaparin, SCDs VAP bundle: no longer indicated Disposition: ICU plan of care as above. Disposition: Code Status: Full Code Betty Perkins MD 11/05/2018 8:55 AM Ellie Mcpherson, [facility] - 11/05/2018 1:06 AM PSTFormatting of this note may be differen t from the original. [facility] [employer] Stripper Service Progress Note Taurus Domínguez 53 y.o. [...] fifth of hard liquor per day, but [place] documen tation indicates he quit years ago), and methamphetamine abuse who presents in transfer from [place] where he was being treated for new onset atrial fibrillation and cardiogenic ирина ck. He originally presented to the hospital in [place] after waking up on the morning of 11/02 with severe epigastric pain radiating up his chest. He c/o nausea, but denied vomiting. In [place], he was found to be in Afib with RVR, and was given a cardizem bolus. Tropon in was minimally elevated at this time, and he was hemodynamically stable. He was transferr ed to [facility] [place] in [place] due to the need for cardiology consult. His epigastric pain had resolved at that time, and patient's rate was controlled but remained in atrial fib. After transfer to [place], patient remained on the cardizem drip. A [...] not previously known. Cardiogenic shock, developed at [place] on t afternoon of 11/03/18 after being on Cardizem. Patient had to be briefly paced due to symp tomatic bradycardia with rate down to the 30s. Patient was started on dopamine, norepinephr ine, and later added epinephrine. The full time staff interpreter service at [facility] was consulted, and the patient was transferred to our ICU for further management. ICU Timeline: 11/04: Pt admitted in transfer from [place], in cardiogenic shock. Pressors weaned th roughout [...] heels LINES/TUBES: RUE PICC line (11/03 at [place]), PIVs DATA Recent Labs Lab 11/05/1841511/04/18409 WBC [...] an EF of 20% whil e at [place], so Cardizem was stopped. Cardiogenic shock - developed in the setting of calcium channel jenise use in pt with u nrecognized cardiomyopathy. Resolving. Weaned off epinephrine and levophed on 11/04. Coronary artery disease. ? Continue aspirin. ? Lipid panel was checked at [place] - all values normal. Essential hypertension. Antihypertensives were restarted - amlodipine, carvedilol, losa rtan. Thoracic aortic aneurysm without rupture. PULM: Patient was intubated for airway protection in the setting of cardiogenic shock. Extuba rao on 11/04. COPD/ panlobular emphysema. Albuterol PRN wheezing. History of tobacco use - documentation from [place] states he quit years ago. GI/NUTRITION: Epigastric [...] first dose receive d on 11/03 at [place] - stop date 11/07. Procalcitonin slightly elevated. Remains afebrile. Blood cultures in process. HEME: No anemia or thrombocytopenia. CBC daily. ENDO: TSH normal at [place]. Implement Endotool if indicated per ICU protocol. [...] procedures. Ellie Mcpherson, WILLEM 11/05/2018 Abigail Menjivar, ONCOLOGY RADIATION PHYSICIAN - 11/04/2018 11:53 AM PSTPt alert and [...] | | | | | | [place] [address] | | | | | | [phone] | | | | | | | | +--------+---------+ + + + + +--------+ + + | Name | Priori | Associated Diagnoses | Order Schedule | | | ty | | | + +--------+ + + | Ambulatory referral to Cardiology | Routin | Cardiogenic shock | Ordered: 11/07/2018 | | | e | ([facility]) | | + +--------+ + [...] Taurus Domínguez Date of : 1965 | [facility] | | Performing Physician: Gabe Conrad | [...] ml LALs A4C: 7.94 cm AR Dec Morton: 2.59 m/s2 AR Dec | | | [...] TR maxP.56 mmHg TR Vmax: 2.57 m/s Help Desk Analyst: MW | | | Authenticated by: Gabe Anamaria Report Date/Time: 37-2019 | | | 13:10:35 | | + + + + + | Procedure Note | + + | David Solorio In - 11/07/2018 1:21 PM PST Patient Name: Fahad Domínguez of | | : 1965Accession: [id number] Physician: Gabe | | [place] INDICATIONS------ | [...] mlLAESV Index (A-L): 59.37 ml/m2LAAs A2C: 32.31 [id number] | | A-L A2C: 132.42 mlLALs A2C: 6.69 cmLAAs A4C: 29.99 [id number] A-L A4C: 96.05 | | mlLALs A4C: 7.94 cmAR Dec Morton: 2.59 m/s2AR Dec Time: 1546.99 msAR maxP.22 | | mmHgAR PHT: 448.62 msAR Vmax: 4.00 m/sHR: 109.18 BPMAV maxP.06 mmHgAV | | meanP.76 mmHgAV Vmax: 1.00 m/Neymar Vmean: 0.81 m/Neymar VTI: 21.36 cmAVA Vmax: | | 2.99 cm2AVA (VTI): 2.00 mw4VWNE Vmax: 0.00 cm2/m2AVAI (VTI): 0.00 cm2/m2LVOT | [...] |LALs A4C: 7.94 cm | |AR Dec Morton: 2.59 m/s2 | |AR Dec Time: 1546.99 [...] |TR Vmax: 2.57 m/s | | | |Help Desk Analyst: MW | |Authenticated by: Gabe Conrad | [...] [facility] | [address] | [facility] [address] | | + + + + + [...] 0.70 | 0.70 - 1.30 mg/dL | [facility] | + + + + + | BUN/CREAT | 27 | | [facility] | + + + + + | CALCIUM | 8.3 (L) | 8.5 - 10.5 mg/dL | [facility] | + + + + + | EGFR | >60Comment: GFR <60: | >60 mL/min/1.73m2 | [facility] | | | CHRONIC KIDNEY [...] the | | | | | MDRD [facility] traceable | | | | | equation.Testing | | | | | performed at [facility];[address] | | | | | [address];[place] | | | | | [address] | | | + + + + + + + | Specimen | + + | Blood | + + + + + + + | Performing | Address | City/State/Zipcode | Phone Number | | Organization | | | | + + + + + | [facility] | [address] | [place] [address] | | + + + + + Phosphorus (11/07/2018 3:13 AM) + + + + + | Component | Value | Ref Range | Performed At | + + + + + | PHOSPHORUS | 3.6Comment: Testing | 2.3 - 4.8 mg/dL | [facility] | | | performed at [facility];[address] | | | | | [address];[place] | | | | | [address] | | | + + + + + + + | Specimen | + + | Blood | + + + + + + + | Performing | Address | City/State/Zipcode | Phone Number | | Organization | | | | + + + + + | [facility] | [address] | [place] [address] | | + + + + + Magnesium (11/07/2018 3:13 AM) + + + + + | Component | Value | Ref Range | Performed At | + + + + + | MAGNESIUM | 1.9Comment: Testing | 1.7 - 2.4 mg/dL | [facility] | | | performed at [facility];[address] | | | | | [address];[place] | | | | | [address] | | | + + + + + + + | Specimen | + + | Blood | + + + + + + + | Performing | Address | City/State/Zipcode | Phone Number | | Organization | | | | + + + + + | [facility] | [address] | [place] [address] | | + + + + + [...] | [facility] | | | performed at [facility], [address] | | LABORATORY | | | [facility], | | | | | [place] [address] | | | + + + + + + + | Specimen | + + | Blood | + + + + + + + | Performing | Address | City/State/Zipcode | Phone Number | | Organization | | | | + + + + + | [facility] | [address] [place] [address] | [place] [address] | [phone] | | LABORATORY | [address] | | | + + + + + PROCALCITONIN (11/07/2018 3:13 AM) + + + + + | Component | Value | Ref Range | Performed At | + + + + + | PROCALCITONIN | 0.19Comment: | <0.5 ng/mL | [facility] | | | INTERPRETIVE | [...] performed | | | | | at [facility];[address] [facility] | | | | | Blvd;[place] [address] | | | + + + + + + + + + + | Performing | Address | City/State/Zipcode | Phone Number | | Organization | | | | + + + + + | [facility] | [address] | [place] [address] | | + + + + + [...] + + + + | Calculated R Sevier | -67 | degrees | [facility] | + + + + + | Calculated T Sevier | 87 | degrees | [facility] [...] | + + + + + | [facility] | [address] | [place] [address] | | + + + + + [...] [facility] | [address] | [place] [address] | | + + + + + [...] 27 | 23 - 32 mmol/L | [facility] | | | | | LABORATORY | [...] the | | | | | MDRD IDMI traceable | | | | | equation.Testing | | | | | performed at [facility], [address] | | | | | [facility], | | | | | [place] [address] | | | + + + + + + + | Specimen | + + | Blood | + + + + + + + | Performing | Address | City/State/Zipcode | Phone Number | | Organization | | | | + + + + + | [facility] | [address] [facility] | [place] [address] | [phone] | | LABORATORY | [address] | | | + + + + + Phosphorus (11/06/2018 4:08 AM) + + + + + | Component | Value | Ref Range | Performed At | + + + + + | PHOSPHORUS | 3.1Comment: Testing | 2.3 - 4.8 mg/dL | [facility] | | | performed at [facility], [address] | | LABORATORY | | | [facility], | | | | | [place] [address] | | | + + + + + + + | Specimen | + + | Blood | + + + + + + + | Performing | Address | City/State/Zipcode | Phone Number | | Organization | | | | + + + + + | [facility] | [address] [place] [address] | [place] [address] | [phone] | | LABORATORY | [address] | | | + + + + + Magnesium (11/06/2018 4:08 AM) + + + + + | Component | Value | Ref Range | Performed At | + + + + + | MAGNESIUM | 2.1Comment: Testing | 1.7 - 2.4 mg/dL | [facility] | | | performed at [facility], [address] | | LABORATORY | | | [facility] [address], | | | | | [place] [address] | | | + + + + + + + | Specimen | + + | Blood | + + + + + + + | Performing | Address | City/State/Zipcode | Phone Number | | Organization | | | | + + + + + | [facility] | [address] | [place] [address] | [phone] | | LABORATORY | [address] | | [...] | [facility] | | | performed at [facility], [address] | | LABORATORY | | | [address], | | | | | [place] [address] | | | + + + + + + + | Specimen | + + | Blood | + + + + + + + | Performing | Address | City/State/Zipcode | Phone Number | | Organization | | | | + + + + + | [facility] | [address] | [place] [address] | [phone] | | LABORATORY | [address] | | | + + + + + Potassium (11/05/2018 9:07 AM) + + + + + | Component | Value | Ref Range | Performed At | + + + + + | POTASSIUM | 4.1Comment: Testing | 3.5 - 4.9 mmol/L | [facility] | | | performed at [facility];[address] | | | | | [address];[place] | | | | | [address] | | | + + + + + + + | Specimen | + + | Blood | + + + + + + + | Performing | Address | City/State/Zipcode | Phone Number | | Organization | | | | + + + + + | [facility] | [address] | [place] [address] | | + + + + + Protime (11/05/2018 9:07 AM) + + + + + | Component | Value | Ref Range | Performed At | + + + + + | INR | 1.2Comment: REFERENCE | | [facility] | | | RANGE:0.9 - [...] | | | | | performed at [facility];[address] | | | | | [address];[place] | | | | | [address] | | | + + + + + + + | Specimen | + + | Blood | + + + + + + + | Performing | Address | City/State/Zipcode | Phone Number | | Organization | | | | + + + + + | [facility] | [address] [facility] | [place] [address] | | + + + + + [...] the | | | | | MDRD IDMI traceable | | | | | equation.Testing | | | | | performed at [facility], [address] | | | | | [facility], | | | | | [place] [address] | | | + + + + + + + | Specimen | + + | Blood | + + + + + + + | Performing | Address | City/State/Zipcode | Phone Number | | Organization | | | | + + + + + | [facility] | [address] [facility] [address] | [place] [address] | [phone] | | LABORATORY | [address] | | | + + + + + Phosphorus (11/05/2018 4:16 AM) + + + + + | Component | Value | Ref Range | Performed At | + + + + + | PHOSPHORUS | 3.4Comment: Testing | 2.3 - 4.8 mg/dL | [facility] | | | performed at [facility], [address] | | LABORATORY | | | [address], | | | | | [place] [address] | | | + + + + + + + | Specimen | + + | Blood | + + + + + + + | Performing | Address | City/State/Zipcode | Phone Number | | Organization | | | | + + + + + | [facility] | [address] | [place] [address] | [phone] | | LABORATORY | [address] | | | + + + + + Magnesium (11/05/2018 4:16 AM) + + + + + | Component | Value | Ref Range | Performed At | + + + + + | MAGNESIUM | 2.2Comment: Testing | 1.7 - 2.4 mg/dL | [facility] | | | performed at [facility], [address] | | LABORATORY | | | [address], | | | | | [place] [address] | | | + + + + + + + | Specimen | + + | Blood | + + + + + + + | Performing | Address | City/State/Zipcode | Phone Number | | Organization | | | | + + + + + | [facility] | [address] | [place] [address] | [phone] | | LABORATORY | [address] | | [...] | [facility] | | | performed at [facility], [address] | | LABORATORY | | | [address], | | | | | [place] [address] | | | + + + + + + + | Specimen | + + | Blood | + + + + + + + | Performing | Address | City/State/Zipcode | Phone Number | | Organization | | | | + + + + + | [facility] | [address] | [place] [address] | [phone] | | LABORATORY | [address] | | | + + + + + Troponin I (11/04/2018 2:08 PM) + + + + + | Component | Value | Ref Range | Performed At | + + + + + | TROPONIN I | 0.113 (H)Comment: 0.04 | 0.00 - 0.04 ng/mL | [facility] | | | ng/mL or [...] performed | | | | | at [facility];[address] [place] [address] | | | | | [facility] [place] [address] | | | + + + + + + + | Specimen | + + | Blood | + + + + + + + | Performing | Address | City/State/Zipcode | Phone Number | | Organization | | | | + + + + + | [facility] | [address] | [place] [address] | | + + + + + CPK (11/04/2018 2:08 PM) + + + + + | Component | Value | Ref Range | Performed At | + + + + + | CPK | 38 (L)Comment: Testing | 55 - 400 U/L | [facility] | | | performed at [facility];[address] | | | | | [facility];[place] | | | | | [address] | | | + + + + + + + | Specimen | + + | Blood | + + + + + + + | Performing | Address | City/State/Zipcode | Phone Number | | Organization | | | | + + + + + | [facility] | [address] | [place] [address] | | + + + + + CK MB (11/04/2018 2:08 PM) + + + + + | Component | Value | Ref Range | Performed At | + + + + + | MMB | 2.6 | 0.5 - 3.6 ng/mL | [facility] | + + + + + | CK-MB Index | 6.8Comment: CK INDEX | | [facility] | | | INTERPRETATION: | [...] | | | | | performed at [facility];[address] | | | | | [address];[place] | | | | | [address] | | | + + + + + + + | Specimen | + + | Blood | + + + + + + + | Performing | Address | City/State/Zipcode | Phone Number | | Organization | | | | + + + + + | [facility] | [address] | [place] [address] | | + + + + + Magnesium (11/04/2018 7:43 AM) + + + + + | Component | Value | Ref Range | Performed At | + + + + + | MAGNESIUM | 2.4Comment: Testing | 1.7 - 2.4 mg/dL | [facility] | | | performed at [facility];[address] | | | | | [facility];[place], [place] | | | | | [address] | | | + + + + + + + | Specimen | + + | Blood | + + + + + + + | Performing | Address | City/State/Zipcode | Phone Number | | Organization | | | | + + + + + | [facility] | [address] | [place] [address] | | + + + + + Troponin I (11/04/2018 7:43 AM) + + + + + | Component | Value | Ref Range | Performed At | + + + + + | TROPONIN I | 0.139 (H)Comment: 0.04 | 0.00 - 0.04 ng/mL | [facility] | | | ng/mL or [...] performed | | | | | at [facility];[address] | | [address];[place] [address] | | | + + + + + + + | Specimen | + + | Blood | + + + + + + + | Performing | Address | City/State/Zipcode | Phone Number | | Organization | | | | + + + + + | [facility] | [address] | [place] [address] | | + + + + + CPK (11/04/2018 7:43 AM) + + + + + | Component | Value | Ref Range | Performed At | + + + + + | CPK | 32 (L)Comment: Testing | 55 - 400 U/L | [facility] | | | performed at [facility];[address] | | | | | [address];[place] | | | | | [address] | | | + + + + + + + | Specimen | + + | Blood | + + + + + + + | Performing | Address | City/State/Zipcode | Phone Number | | Organization | | | | + + + + + | [facility] | [address] | [place] [address] | | + + + + + CK MB (11/04/2018 7:43 AM) + + + + + | Component | Value | Ref Range | Performed At | + + + + + | MMB | 2.3 | 0.5 - 3.6 ng/mL | [facility] | + + + + + | CK-MB Index | 7.2Comment: CK INDEX | | [facility] | | | INTERPRETATION: | [...] | | | | | performed at [facility];[address] | | | | | [address];[place] | | | | | [address] | | | + + + + + + + | Specimen | + + | Blood | + + + + + + + | Performing | Address | City/State/Zipcode | Phone Number | | Organization | | | | + + + + + | [facility] | [address] | [place] [address] | | + + + + + Phosphorus (11/04/2018 4:10 AM) + + + + + | Component | Value | Ref Range | Performed At | + + + + + | PHOSPHORUS | 5.7 (H)Comment: Testing | 2.3 - 4.8 mg/dL | [facility] | | | performed at [facility] | | | | | [address];[place] | | | | | [address] | | | + + + + + + + | Specimen | + + | Blood | + + + + + + + | Performing | Address | City/State/Zipcode | Phone Number | | Organization | | | | + + + + + | [facility] | [address] | [place] [address] | | + + + + + Magnesium (11/04/2018 4:10 AM) + + + + + | Component | Value | Ref Range | Performed At | + + + + + | MAGNESIUM | 2.1Comment: Testing | 1.7 - 2.4 mg/dL | [facility] | | | performed at [facility];[address] | | | | | [facility];[place] | | | | | [address] | | | + + + + + + + | Specimen | + + | Blood | + + + + + + + | Performing | Address | City/State/Zipcode | Phone Number | | Organization | | | | + + + + + | [facility] | [address] | [place] [address] | | + + + + + [...] | [facility] | | | performed at [facility], [address] | | LABORATORY | | | [address], | | | | | [place] [address] | | | + + + + + + + | Specimen | + + | Blood | + + + + + + + | Performing | Address | City/State/Zipcode | Phone Number | | Organization | | | | + + + + + | [facility] | [address] [facility] | [place] [address] | [phone] | | LABORATORY | [address]vd[address] | | [...] + | BUN/CREAT | 20 | | [facility] | + + + + + | CALCIUM | 8.6 | 8.5 - 10.5 mg/dL | [facility] | + + + + + | EGFR | 59 (L)Comment: GFR <60: | >60 mL/min/1.73m2 | [facility] | | | CHRONIC KIDNEY [...] | | | | | performed at [facility];[address] | | | | | [facility];[place], [place] | | | | | [address] | | | + + + + + + + | Specimen | + + | Blood | + + + + + + + | Performing | Address | City/State/Zipcode | Phone Number | | Organization | | | | + + + + + | [facility] | [address] | [place] [address] | | + + + + + PROCALCITONIN (11/04/2018 4:10 AM) + + + + + | Component | Value | Ref Range | Performed At | + + + + + | PROCALCITONIN | 1.13 (H)Comment: | <0.5 ng/mL | [facility] | | | INTERPRETIVE | [...] performed | | | | | at [facility];[address] | | | | | [address];[place] [address] | | | + + + + + + + + + + | Performing | Address | City/State/Zipcode | Phone Number | | Organization | | | | + + + + + | [facility] | [address] | [place] [address] | | + + + + + [...] | + + + + + | [facility] | [address] [facility] | [place] [address] | | + + + + + [...] [facility] | [address] | [place] [address] | | + + + + + [...] | [facility] | [address] | [place] [address] | [phone] | | LABORATORY | Blvd. | | | + + + + + | [facility] | [address] | [place] [address] | | + + + + + CK MB (11/04/2018 1:12 AM) + + + + + | Component | Value | Ref Range | Performed At | + + + + + | MMB | 2.4 | 0.5 - 3.6 ng/mL | [facility] | + + + + + | CK-MB Index | 7.5Comment: CK INDEX | | [facility] | | | INTERPRETATION: | [...] | | | | | performed at [facility];[address] | | | | | [address];[place] | | | | | [address] | | | + + + + + + + | Specimen | + + | Blood | + + + + + + + | Performing | Address | City/State/Zipcode | Phone Number | | Organization | | | | + + + + + | [facility] | [address] | [place] [address] | | + + + + + CPK (11/04/2018 1:12 AM) + + + + + | Component | Value | Ref Range | Performed At | + + + + + | CPK | 32 (L)Comment: Testing | 55 - 400 U/L | [facility] | | | performed at [facility];[address] | | | | | [address];[place] | | | | | [address] | | | + + + + + + + | Specimen | + + | Blood | + + + + + + + | Performing | Address | City/State/Zipcode | Phone Number | | Organization | | | | + + + + + | [facility] | [address] | [place] [address] | | + + + + + Troponin I (11/04/2018 1:12 AM) + + + + + | Component | Value | Ref Range | Performed At | + + + + + | TROPONIN I | 0.168 (H)Comment: 0.04 | 0.00 - 0.04 ng/mL | [facility] | | | ng/mL or [...] performed | | | | | at [facility];[address] | | | | [address];[place] [address] | | | + + + + + + + | Specimen | + + | Blood | + + + + + + + | Performing | Address | City/State/Zipcode | Phone Number | | Organization | | | | + + + + + | [facility] | [address] | [place] [address] | | + + + + + Lipase (11/04/2018 1:12 AM) + + + + + | Component | Value | Ref Range | Performed At | + + + + + | LIPASE | 26Comment: NOTE NEW | 12 - 53 U/L | [facility] | | | REFERENCE RANGETesting | | | | | performed at [facility];[address] | | | | | [address];[place] | | | | | [address] | | | + + + + + + + | Specimen | + + | Blood | + + + + + + + | Performing | Address | City/State/Zipcode | Phone Number | | Organization | | | | + + + + + | [facility] | [address] | [place] [address] | | + + + + + Amylase (11/04/2018 1:12 AM) + + + + + | Component | Value | Ref Range | Performed At | + + + + + | AMYLASE | 38Comment: Testing | 25 - 115 U/L | [facility] | | | performed at [facility];[address] | | | | | [address];[place] | | | | | [address] | | | + + + + + + + | Specimen | + + | Blood | + + + + + + + | Performing | Address | City/State/Zipcode | Phone Number | | Organization | | | | + + + + + | [facility] | [address] | [place] [address] | | + + + + + Basic metabolic panel (11/04/2018 1:12 AM) + + + + + | Component | Value | Ref Range | Performed At | + + + + + | SODIUM | 138 | 135 - 145 mmol/L | [facility] | + + + + [...] (H) | 65 - 99 mg/dL | [facility] | + + + + + | BUN | 24 | 8 - 25 mg/dL | [facility] | + + + + + | CREATININE | 1.24 | 0.70 - 1.30 mg/dL | [facility] | + + + + + | BUN/CREAT | 19 | | [facility] | + + + + + | CALCIUM | 8.5 | 8.5 - 10.5 mg/dL | [facility] | + + + + + | EGFR | >60Comment: GFR <60: | >60 mL/min/1.73m2 | [facility] | | | CHRONIC KIDNEY [...] | | | | | performed at [facility];[address] | | | | [address];[place] | | | | | [address] | | | + + + + + + + | Specimen | + + | Blood | + + + + + + + | Performing | Address | City/State/Zipcode | Phone Number | | Organization | | | | + + + + + | [facility] | [address] | [place] [address] | | + + + + + Lactic acid (11/04/2018 1:12 AM) + + + + + | Component | Value | Ref Range | Performed At | + + + + + | LACTIC ACID | 1.1Comment: Testing | 0.4 - 2.0 mmol/L | [facility] | | | performed at [facility] | | | | | [address];[place] | | | | | [address] | | | + + + + + + + | Specimen | + + | Blood | + + + + + + + | Performing | Address | City/State/Zipcode | Phone Number | | Organization | | | | + + + + + | [facility] | [address] | [place] [address] | | + + + + [...] SPECIAL REQUESTS | RT ARM | | [facility] | + + + + [...] + + + | [facility] | [address] | [place] [address] | [phone] | | LABORATORY | [address]. | | | + + + + + | [facility] | [address] | [place] [address] | | + + + + + MRSA by PCR (11/04/2018 12:13 AM) + + + + + | Component | Value | Ref Range | Performed At | + + + + + | SOURCE | NARES(NOSE) | | [facility] | + + + + + | MRSA PCR | NEGATIVEComment: Testing | NEGATIVE | [facility] | | | performed at [facility];[address] | | | | | [address];[place] | | | | | [address] | | | + + + + + + + | Specimen | + + | Nasopharyngeal - | | Nasopharyngeal | | Culture | + + + + + + + | Performing | Address | City/State/Zipcode | Phone Number | | Organization | | | | + + + + + | [facility] | [address] | [place] [address] | | + + + + + [...] (H) | 0.0 - 2.0 mmol/L | [facility] | + + + + + | POC S02 | 98 | 95 - 98 % | [facility] | + + + + + | POC COMMENTS | Oliver Test not | | [facility] | | | indicatedComment: Site = | | | | | left radialTesting | | | | | performed at [facility];[address] | | | | | [address];[place], [place] | | | | | [address] | | | + + + + + + + + + + | Performing | Address | City/State/Zipcode | Phone Number | | Organization | | | | + + + + + | [facility] | [address] | [place] [address] | | + + + + + POCT glucose (11/03/2018 11:11 PM) + + + + + | Component | Value | Ref Range | Performed At | + + + + + | GLUCOSE,POC SCREEN | 174 (H)Comment: Testing | 65 - 99 mg/dL | [facility] | | | performed at [facility];[address] | | | | | [address];[place] | | | | | [address] | | | + + + + + + + + + + | Performing | Address | City/State/Zipcode | Phone Number | | Organization | | | | + + + + + | [facility] | [address] | [place] [address] | | + + + + + in this encounter Visit Diagnoses + + | Diagnosis | + + | Cardiogenic shock (HCC) - Primary | + + | Cardiogenic shock | + + | Coronary artery disease | + + | Coronary atherosclerosis of unspecified type of vessel, [place] or graft | + + | COPD [...]
--- OUTSIDE RECORDS SUMMARY | ~2018-11-24 | XMS | Encounter Summary ---
Demographics + + + | Address | [address] | | | [place] [address] | + + + | Home Phone | | + + + | Preferred Language | Unknown | + + + | Marital Status | Unknown | + + + | Mandaeism Affiliation | Unknown | + + + | Race | Unknown | + + + | Ethnic Group | Unknown | + + + Author + + + | Author | [facility] | + + + | Organization | [facility] | + + + | Address | [...] Team Providers + +------+ + | Care Palletiser Operator Name | Role | Phone | [...] + + + | Authorized | | | Diagnoses | [facility], | [facility], | | | | | Alcohol | MD Gabe | [address] | | | | | abuse | [address] | | | | | Atrial | Magdalena Love | [place] | | | | | fibrillation | Fawad F | [place], [place] | | | | | with RVR | [place], [place] | [address] | | | | | ([facility]) | [address] | Phone: | | | | | Benign | Phone: | [phone] | | | | | essential | [phone] | Fax: | | | | | hypertension | Fax: | [phone] | | | | | Acute | [phone] | | | | | | combined | | | | | | | systolic and | | | | | | | diastolic | | | | | | | congestive | | | | | | | heart | | | | | | | failure | | | | | | | ([facility]) | | | + +--------+ + + [...] | Cardiology | Diagnoses | Perkins, | [place], | | | Services | | Cardiogenic | Betty Greenwood MD | MD Gabe | | | Required | | shock (HCC) | [address] | [address] | | | | [address] | [address] | | | | | | [place], [place] | [place], [place] | | | | | | [address] | [address] Phone: | | | | | | Phone: | [phone] | | | | | | [phone] | Fax: | | | | | | Fax: | [phone] | | | | | | [phone] | | + + + + + + + Encounter Details +--------+---------+ + + + | Date | Type | Department | Care Team | Description | +--------+---------+ + + + | 03/13/ | Office | [facility] | Gabe Persaud, | Alcohol abuse | | 2019 | Visit | Cardiology [place] | MD Carla Nichols | (Primary Dx); Atrial | | | | [address] | [address], | fibrillation with | | | | [address] | [place] [address] | RVR (HCC); Essential | | | | [place] [address] | [phone] | hypertension, | | | | [phone] | | benign; Acute | | | | | | combined systolic | | | | | | and diastolic | | | | | | congestive heart | | | | | | failure (HCC); | | | | | | Troponin level | | | | | | elevated | +--------+---------+ + + + Social History [...] + + + | Blood Pressure | 122/100 | 11/13/2018 1:25 PM PDT | + + + + | Pulse | 127 | 11/13/2018 1:25 PM PDT | + + + + | Temperature | - | - | + + + + | Respiratory Rate | 18 | 11/13/2018 1:25 PM PDT | + + + + | Oxygen Saturation | 96% | 11/13/2018 1:25 PM PDT | + + + + | Inhaled Oxygen | - | - | | Concentration | | | + + + + | Weight | 91.2 kg (201 lb) | 11/13/2018 1:25 PM PDT | + + + + | Height | 175.3 cm (5' 9") | 11/13/2018 1:25 PM PDT | + + + + | Body Mass Index | 29.68 | 11/13/2018 1:25 PM PDT | + + + + in this encounter Instructions Patient Instructions - Gabe Persaud MD - 11/13/2018 1:45 PM PDTIncrease losartan to 50 mg once daily. Increase carvedilol to 25 mg twice daily. Add digoxin 0.125 mg. Add warfarin 5 mg. Torsemide 20 mg daily start today. Follow up in one week. If you don't feel better in the next 48 hours please come to [facility]. in this encounter Progress Notes Gabe Persaud MD - 11/13/2018 1:45 PM PDTFormatting of this note may be different fro m the original. Date of visit: 11/13/2018 Primary Care Physician: Daisy Jane CHIEF COMPLAINT: Chief Complaint Patient presents with Follow-up HISTORY OF PRESENT ILLNESS: Taurus is 53 y.o. presented to follow-up visit. Feeling short of breath, dyspnea, orthopnea. No significant weight change since hospitaliza tion. Was hospitalized initially and [facility] in November 2018 secondary to atrial fibrilla tion and rapid ventricular response. Was treated with diltiazem IV, that caused hypotension and cardiogenic shock then transferr ed to [facility] for cardiac evaluation despite the fact that [facility] have ca rdiology service. Patient was admitted to intensive care unit. Was treated with medical management. Of note on his admission to [facility] he was tested positive for cannabinoids and [...] chart. Medications: Outpatient Encounter Prescriptions as of 11/13/2018 Medication Sig Dispense Refill aspirin 81 MG tablet Take 81 mg by mouth daily. carvedilol (COREG) 25 MG tablet Take 12.5 mg by mouth 2 (two) times daily with meals. ipratropium-albuterol (DUO-NEB) 0.5-2.5 mg/3mL Take 3 mLs by nebulization as needed. losartan (COZAAR) 25 MG tablet Take 1 tablet by mouth daily. 30 tablet 11 omeprazole (PRILOSEC) 20 MG EC tablet Take 20 mg by mouth before breafast. spironolactone (ALDACTONE) 25 MG tablet Take 1 tablet by mouth daily. 30 tablet 11 No facility-administered encounter medications on file as of 11/13/2018. Allergies No Known Allergies REVIEW OF SYSTEMS: Constitutional: Positive for fatigue. HEENT: Negative for nosebleeds, ear discharge, nasal congestion or soar throat. Eyes: Negative for visual disturbance, redness, or secretion. Respiratory: positive cough, no hemoptysis. Cardiovascular: as HPI. Gastrointestinal: Negative for nausea, vomiting, diarrhea, abdominal pain and blood in stoo l. Genitourinary: Negative for dysuria or hematuria. Musculoskeletal: Chronic arthritic pain. Skin: Negative for rash. Neurological: Negative for dizziness. No numbness. No recent falls. No slurred speech. Hematological: No significant bruising. Psychiatric/Behavioral: No depression or anxiety. PHYSICAL EXAM Vital Signs: BP (!) 122/100 (BP Location: Right upper arm, Patient Position: Sitting) | Pulse 127 | Re sp 18 | Ht 1.753 m (5' 9") | Wt 91.2 kg (201 lb) | SpO2 96% | BMI 29.68 kg/m GENERAL APPEARANCE: Alert, oriented, cooperative, no distress, appears stated age. HEENT: Extraocular movements were intact. No jaundice. Pupiles round and reactive. NECK: Positive for JVD, no lymphadenopathy. Carotid upstrokes normal. No carotid bruit hear d. CARDIAC: Irregular irregular, tachycardic. CHEST: Bibasilar crackles both lung poole. ABDOMEN: Soft.No tenderness or guarding. Liver is detected below the rib cage. Active bowel sounds. EXTREMITIES: +2 lower extremity edema. NEURO: Alert and oriented times three with [...] y.o. with the following medical problems: 1. Acute decompensated systolic and diastolic congestive heart failure, currently volume ov erload [facility] class IV, stage C. 2. Newly diagnosed atrial fibrillation, persistent CHADSVASc of 3. 3. Coronary calcification, seen incidentally on CT of the chest. 4. History of alcohol abuse, 5-10 drinks a night. As drink was before hospitalization. 5. Tobacco abuse. 6. Chronic obstructive pulmonary disease. 7. Hypertension currently blood pressure is controlled. 8. Frequent hiccups. Plan: Patient currently in acute decompensated systolic congestive heart failure. I offered to th e patient re-hospitalization for diuresis and rate control. Patient wants to try outpatient medical management if he feels he will proceed [facility]. Unfortunately patient was discharged before optimization of medical therapy. Not even on an ticoagulation. We will increase losartan to 50 mg po q day, increase carvedilol to 25 mg bid. Start digoxin 0.125 mg daily. Start torsemide 20 mg po q day. Will start warfarin and refer for warfarin clinic in [facility]. Again discussed with the patient regarding alcohol intake and smoking cessation Follow-up in 1 week or earlier if will proceed to ER if symptoms don't improved. *This report has been prepared using a [...] Cardiology | Gabe Persaud, | | | 2018 | Visit | | MD Carla Nichols | | | | | | Dr [address], | | | | | | [place] [address] | | | | | | [phone] | | | | | | | | +--------+---------+ + + + + +--------+ + + | Name | Priori | Associated Diagnoses | Order Schedule | | | ty | | | + +--------+ + + | AMB Referral Extension for | Routin | Alcohol abuse | Ordered: 11/13/2018 | | Anticoag | e | Atrial fibrillation | | | | | with RVR ([facility]) | | | | | Essential | | | | | hypertension, benign | | | | | Acute combined | | | | | systolic and | | | | | diastolic congestive | | | | | heart failure (HCC) | | + +--------+ + + as of this encounter Visit Diagnoses + + | Diagnosis | + + | Alcohol abuse - Primary | + + | Alcohol abuse, unspecified | + + | Atrial fibrillation with RVR (HCC) | + + | Atrial fibrillation | + + | Essential hypertension, benign | + + | Acute combined systolic and diastolic congestive heart failure (HCC) | + + | Acute combined systolic and diastolic heart failure | + + | Troponin level elevated | + + | Other abnormal blood chemistry | + +
--- OUTSIDE RECORDS SUMMARY | ~2018-11-24 | XMS | Encounter Summary ---
Demographics + + + | Address | [address] | | | [place] [address] | + + + | Home Phone [...] [place] | | | | | [address] | | + + + + + | Message,Detailed | ECON | Unknown | | + + + + + Care Team Providers + +------+ + | Care Crew Boat Operator Name | Role | Phone | [...] + + | 11/02/ | Hospital | [facility] | Arlin Chou | Atrial fibrillation, | | 2019 - | Encounter | [facility] ICU [address] | MD Anabel [address] | unspecified type | | | | [place], | [address] [place] | ([facility]); Atrial | | 11/03/ | | [place] [address] | [place] [address] | fibrillation with | | 2019 | | [phone] | [phone] | [facility] ([facility]); | | | | | | Panlobular emphysema | | | | | Natalie Reyes MD | ([facility]); Troponin | | | | | [address] | level elevated; | | | | | [place] | Gastroesophageal | | | | | [id number] | reflux disease, | | | | [...] 11/03/2018730 PST | + + + + in this encounter Functional Status + + [...] | | | + + + + as of this encounter Discharge Summaries Natalie Reyes MD - 11/03/2018 1847 PSTFormatting of this note may be different from the or iginal. [place], [place] HOSPITALIST DISCHARGE SUMMARY Pt. Name/Age/: Taurus [...] with normal EF. Patient was seen by [facility] Cardiology in March 2018 and [...] Verma graciously accepting patient for transfer to [facility] for higher LOC. 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 Electronically signed by: Natalie Reyes MD, 11/03/2018 18:47 [facility] in this encounter Medications at Time of Discharge + + +--------+---------+ + + | Medication | Sig. | Disp. | Refills | Start | End Date | | | | | | Date | | + + +--------+---------+ + + | | Take 3 mLs by | | | | | | albuterol-ipratropiu | nebulization. | | | | | | m (DUONEB) 2.5-0.5 | | | | | | | mg/3 mL SOLN | | | | | | + + +--------+---------+ + + | amLODIPine | Take 5 mg by mouth | | | | | | (NORVASC) 5 mg | Daily. | | | | | | tablet | | | | | | + + +--------+---------+ + + | aspirin 81 mg EC | Take 81 mg by mouth | | | | | | tablet | Daily. | | | | | + + +--------+---------+ + + | carvedilol (COREG) | Take 12.5 mg by | | | | | | 12.5 mg tablet | mouth. | | | | | + + +--------+---------+ + + | chlorproMAZINE | Take 1 tablet by | 90 | 2 | 11/10/19 | | | (THORAZINE) 25 mg | mouth 3 times daily. | tablet | | 18 | | | tablet | | | | | | + + +--------+---------+ + + | hydrALAZINE | Take 25 mg by mouth. | | | | | | (APRESOLINE) 25 mg | | | | | | | tablet | | | | | | + + +--------+---------+ + + | losartan (COZAAR) | Take 50 mg by mouth | | | | | | 50 mg tablet | Daily. | | | | | + + +--------+---------+ + + as of this encounter Progress Notes Eva [...] by: Eva Meza RN 11/03/2018 16:04 Natalie Reyes MD - 11/03/2018 0830 PSTFormatting of this note may be different from the or iginal. [facility]ITAL[facility] PROGRESS NOTE Patient: Taurus Domínguez : 1965: Age: 53 y.o. MedRec: [id number] Admission date: 11/02/2018 Hospital day # : [...] 110s-120s. TSH within normal limits. Echo pending. [id number] sc ore 3, warranting anticoag (prior stroke, [...] showed normal EF. Patient was seen by [facility] Cardiology in March 2018; patient reported drinking a fifth of whiskey daily at that time. [place]el[place] d NM scan in March 2018; cannot see the results in our EMR but patient thinks study was negat asad. Add CILA protocol for alcohol w/d. Chest x-ray appears [...] Procedure Component Value Units Date/Time Culture, MRSA [[id number]] Collected: 11/02/18 1800 Order Status: Sent Lab [...] rate L/min Natalie Reyes MD 11/03/2018 8:30 [facility] in this encounter Plan of Treatment Not on fileas of this encounter Procedures + +--------+ + + + | Procedure Name | Priori | Date/Time | Associated Diagnosis | Comments | | | ty | | | | + +--------+ + + + | ECG 12 LEAD | Routin | 11/03/2018 | | Results for this | | | e | 1810 PST | | procedure are in the | | | | | | results section. | + +--------+ + + + | XR CHEST AP PORTABLE | STAT | 11/03/2018 | | Results for this | | | | 1803 PST | | procedure are in the | | | | | | results section. | + +--------+ + + + | POC BLOOD GASES | Routin | 11/03/2018 | | Results for this | | | e | 1801 PST | | procedure are in the | | | | | | results section. | + +--------+ + + + | EXTRA PLAIN RED TOP | Routin | 11/03/2018 | | Results for this | | | e | 1650 PST | | procedure are in the | | | | | | results section. | + +--------+ + + + | EXTRA GREEN TOP TUBE | Routin | 11/03/2018 | | Results for this | | | e | 1650 PST | | procedure are in the | | | | | | results section. | + +--------+ + + + | EXTRA GOLD TOP TUBE | Routin | 11/03/2018 | | Results for this | | | e | 1650 PST | | procedure are in the | | | | | | results section. | + +--------+ + + + | CULTURE, BLOOD | STAT | 11/03/2018 | | Results for this | | | | 1632 PST | | procedure are in the | | | | | | results section. | + +--------+ + + + | CULTURE, BLOOD | STAT | 11/03/2018 | | Results for this | | | | 1630 PST | | procedure are in the | | | | | | results section. | + +--------+ + + + | CBC WITH | STAT | 11/03/2018 | | Results for this | | DIFFERENTIAL | | 1630 PST | | procedure are in the | | | | | | results section. | + +--------+ + + + | LACTIC ACID | STAT | 11/03/2018 | | Results for this | | | | 1630 PST | | procedure are in the | | | | | | results section. | + +--------+ + + + | BASIC METABOLIC | STAT | 11/03/2018 | | Results for this | | PANEL | | 1630 PST | | procedure are in the | | | | | | results section. | + +--------+ + + + | XR CHEST AP PORTABLE | [facility] | 11/03/2018 | Atrial | Results for this | | | | 1557 PST | fibrillation with | procedure are in the | | | | | [facility] ([facility]) | results section. | + +--------+ + + + | PROTIME INR | Add-On | 11/03/2018 | | Results for this | | | | 1503 PST | | procedure are in the | | | | | | results section. | + +--------+ + + + | XR CHEST AP PORTABLE | Routin | 11/03/2018 | | Results for this | | | e | 1258 PST | | procedure are in the | | | | | | results section. | + +--------+ + + + | ECG 12 LEAD | [facility] | 11/03/2018 | | Results for this | | | | 0908 PST | | procedure are in the | | | | | | results section. | + +--------+ + + + | ECHO COMPLETE | Routin | 11/03/2018 | | Results for this | | | e | 0822 PST | | procedure are in the | | | | | | results section. | + +--------+ + + + | LIPID PANEL | Routin | 11/03/2018 | | Results for this | | | e | 0609 PST | | procedure are in the | | | | | | results section. | + +--------+ + + + | TROPONIN I | Routin | 11/03/2018 | | Results for this | | | e | 0609 PST | | procedure are in the | | | | | | results section. | + +--------+ + + + | CBC WITH | Routin | 11/03/2018 | | Results for this | | DIFFERENTIAL | e | 0609 PST | | procedure are in the | | | | | | results section. | + +--------+ + + + | TSH | Routin | 11/03/2018 | | Results for this | | | e | 0609 PST | | procedure are in the | | | | | | results section. | + +--------+ + + + | B TYPE NATRIURETIC | Routin | 11/03/2018 | | Results for this | | PEPTIDE | e | 0609 PST | | procedure are in the | | | | | | results section. | + +--------+ + + + | MAGNESIUM | Routin | 11/03/2018 | | Results for this | | | e | 0609 PST | | procedure are in the | | | | | | results section. | + +--------+ + + + | COMPREHENSIVE | Routin | 11/03/2018 | | Results for this | | METABOLIC PANEL | e | 0609 PST | | procedure are in the | | | | | | results section. | + +--------+ + + + | TROPONIN I | Routin | 11/03/2018 | | Results for this | | | e | 0027 PST | | procedure are in the | | | | | | results section. | + +--------+ + + + | DRUGS OF ABUSE, | Routin | 11/03/2018 | | Results for this | | SCREEN, URINE | e | 0022 PST | | procedure are in the | | | | | | results section. | + +--------+ + + + | TROPONIN I | Routin | 11/02/2018 | | Results for this | | | e | 1833 PST | | procedure are in the | | | | | | results section. | + +--------+ + + + | CULTURE, MRSA | Routin | 11/02/2018 | | Results for this | | | e | 1800 PST | | procedure are in the | | | | | | results section. | + +--------+ + + + | IMAGING REPORT - | | 11/02/2018 | | Results for this | | EXTERNAL SCAN | | 0000 PST | | procedure are in the | | | | | | results section. | + +--------+ + + + | IMAGING REPORT - | | 11/02/2018 | | Results for this | | EXTERNAL SCAN | | 0000 PST | | procedure are in the | | | | | | results section. | + +--------+ + + + | IMAGING REPORT - | | 11/02/2018 | | Results for this | | EXTERNAL SCAN | | 0000 PST | | procedure are in the | | | | | | results section. | + +--------+ + + + | ECG - EXTERNAL SCAN | | 11/02/2018 | | Results for this | | | | 0000 PST | | procedure are in the | | | | | | results section. | + +--------+ + + + in this encounter Results ECG 12 lead (11/03/2018 1810) + + + + + | Component | Value | Ref Range | Performed At | + + + + + | VENTRICULAR RATE EKG | 94 | BPM | [facility] | + + + + + | QRS DURATION | 90 | ms | [facility] | + + + + + | Q-T INTERVAL | 410 | ms | [facility] | + + + + + | Q-T INTERVAL | 512 | ms | [facility] | | (CORRECTED) | | | | + + + + + | QRS AXIS | -75 | degrees | [facility] | + + + + + | T AXIS | 90 | degrees | [facility] | + + + + + | INTERPRETATION TEXT | Atrial fibrillationLeft | | [facility] | | | axis deviationLow | | | | | voltage QRSPossible | | | | | Septal infarct , age | | | | | undeterminedPossible | | | | | Inferior infarct , age | | | | | undeterminedT wave | | | | | abnormality, consider | | | | | anterolateral | | | | | ischemiaProlonged | | | | | QTAbnormal ECGWhen | | | | | compared with ECG of | | | | | 03-NOV-2018 18:10, | | | | | (Unconfirmed)Criteria | | | | | for Inferior infarct , | | | | | age undetermined is now | | | | | presentConfirmed by | | | | | BASILIA SIMONS, SUSANNAH ([id number]) | | | | | on 11/04/2018 8:09:02 AM | | | + + + + [...] +---------+ + + XR Chest AP Portable (11/03/20181802) + + + | Narrative | Performed [...] + +---------+ + + POC Blood Gases (11/03/20181800) + + + + + | Component | Value | Ref Range | Performed At | + + + + + | Specimen Source | Artery | | [facility] | | | | | LAB[facility] | + + + + + | pH, POC | 7.251 (L) | 7.3 - 7.45 | [facility] | | [facility] - | | | | | LAB[facility]ATORY | + + + + + | HCO3, POC | 21.6 | 21.0 - 28.0 mmol/L | [facility] | [facility] - | | | | | LAB[facility]ATORY | + + + + + | TCO2, POC | 23.1 | 22.0 - 29.0 mmol/L | [facility] | | | [facility] | | [facility] - | | | | | LAB[facility]ATORY | + + + + + | Base Excess, POC | -6.0 (L) | -2.0 - 3.0 mmol/L | [facility] | | | | [facility] | | | | [facility] - | | | | | LAB[facility]ATORY | + + + + + | Base Excess, | -5.6 (L) | -2.0 - 3.0 mmol/L | [facility] | | Extracellular fluid, | | | [facility] | | POC | | | CENTER - | | | | | LABORATORY | + + + + + | O2 Sat, POC | 74 (L) | 90 - 100 % | [facility] | | | [facility] | [facility] - | | | | | LAB[facility]ATORY | + + + + + | PCO2, POC | 49.1 (H) | 35 - 45 mmHg | [facility] | | [facility] - | | | | | LAB[facility]ATORY | + + + + + | PO2, POC | 45.8 (L) | 60 - 750.0 mmHg | [facility] | | [facility] | [facility] - | | | | | LAB[facility]ATORY | + + + + + + + | Specimen | + + | Blood | + + + + + + + | Performing | Address | City/State/Zipcode | Phone Number | | Organization | | | | + + + + + | [facility] | [address] | [place] | [phone] | | [facility] | | [address] | | | - LABORATORY | | | | + + + + + Extra Plain Red Top Tube (11/03/2018 1650) + +-------+ + + | Component | Value | Ref Range | Performed At | + +-------+ + + | Extra Plain Red Top | Done | | [facility] | | Tube | | | [facility] | | | | | CENTER - | | | | | LABORATORY | + +-------+ + + + + | Specimen | + + | Blood | + + + + + + + | Performing | Address | City/State/Zipcode | Phone Number | | Organization | | | | + + + + + | [facility] | [address] | [place] | [phone] | | [facility] | | [address] | | | - LABORATORY | | | | + + + + + Extra Green Top Tube (11/03/2018 7799) + +-------+ + + | Component | Value | Ref Range | Performed At | + +-------+ + + | Extra Green Top Tube | Done | | [facility] | | | | | [facility] | | | | | CENTER - | | | | | LABORATORY | + +-------+ + + + + | Specimen | + + | Blood | + + + + + + + | Performing | Address | City/State/Zipcode | Phone Number | | Organization | | | | + + + + + | [facility] | [address] | [place] | [phone] | | [facility] | | [address] | | | - LABORATORY | | | | + + + + + Extra Gold Top Tube (11/03/2018 1650) + +-------+ + + | Component | Value | Ref Range | Performed At | + +-------+ + + | Extra Gold Top Tube | Done | | [facility] | | | | | [facility] | | | | | [facility] - | | | | | LABORATORY | + +-------+ + + + + | Specimen | + + | Blood | + + + + + + + | Performing | Address | City/State/Zipcode | Phone Number | | Organization | | | | + + + + + | [facility] | [address] | [place] | [phone] | | [facility] | | [address] | | | - LABORATORY | | | | + + + + + Culture, Blood (11/03/20182) + + + + + | Component | Value | Ref Range | Performed At | + + + + + | Culture | No growth after 5 days | | [facility] | | | incubation. | | [facility] | | | | | CENTER - | | | | | LABORATORY | + + + + + + + | Specimen | + + | Blood | + + + + + + + | Performing | Address | City/State/Zipcode | Phone Number | | Organization | | | | + + + + + | [facility] | [address] | [place] | [phone] | | [facility] | | [address] | | | - LABORATORY | | | | + + + + + Basic Metabolic Panel (11/03/2018 1630) + +---------+ + + | Component | Value | Ref Range | Performed At | + +---------+ + + | Na | 131 (L) | 136 - 145 mmol/L | [facility] | | | | | [facility] | | | | | CENTER - | | | | | LABORATORY | + +---------+ + + | K | 4.9 | 3.4 - 5.1 mmol/L | [facility] | | | | [facility] - | | | | | LABORATORY | + +---------+ + + | Cl | 97 (L) | 98 - 107 mmol/L | [facility] | | | | [facility] | | | [facility] - | | | | | LABORATORY | + +---------+ + + | CO2 | 20 | 20 - 31 mmol/L | [facility] | | | | [facility] | | | [facility] - | | | | | LABORATORY | + +---------+ + + | Anion Gap | 14 | 3 - 16 mmol/L | [facility] | | | | [facility] | | | [facility] - | | | | | LABORATORY | + +---------+ + + | Glucose | 239 (H) | 60 - 106 mg/dL | [facility] | | | | [facility] | | | [facility] - | | | | | LABORATORY | + +---------+ + + | BUN | 18 | 9 - 23 mg/dL | [facility] | | | | [facility] | | | [facility] - | | | | | LABORATORY | + +---------+ + + | Creatinine | 1.26 | 0.70 - 1.30 mg/dL | [facility] | | | | [facility] | | | [facility] - | | | | | LABORATORY | + +---------+ + + | eGFR if not | 59 (L) | >=60 mL/min/1.73m2 | [facility] | | [facility] | [facility] - | | | | | LAB[facility]ATORY | + +---------+ + + | Ca | 9.8 | 8.7 - 10.4 mg/dL | [facility] | | | | [facility] | | | [facility] - | | | | | LABORATORY | + +---------+ + + | BUN/Creatinine Ratio | 14.3 | | [facility] | | | | [facility] | | | | | CENTER - | | | | | LABORATORY | + +---------+ + + + + | Specimen | + + | Blood | + + + + + + + | Performing | Address | City/State/Zipcode | Phone Number | | Organization | | | | + + + + + | [facility] | [address] | [place] | [phone] | | [facility] | | [address] | | | - LABORATORY | | | | + + + + + CBC with Differential (11/03/2018 1630) + + + + + | Component | Value | Ref Range | Performed At | + + + + + | WBC | 13.2 (H) | 4.0 - 11.0 K/uL | [facility] - | | | | | LAB[facility]ATORY | + + + + + | RBC | 4.80 | 4.30 - 5.70 M/uL | [facility] | | | | | [facility] | | | [facility] - | | | | | LABORATORY | + + + + + | Hemoglobin | 15.7 | 13.5 - 18.0 g/dL | [facility] | | | | [facility] | | | | [facility] - | | | | | LAB[facility]ATORY | + + + + + | Hematocrit | 47.4 | 40.0 - 51.0 % | [facility] | | | | [facility] | | | [facility] - | | | | | LAB[facility]ATORY | + + + + + | MCV | 98.8 | 83.0 - 101.0 fL | [facility] | | | | | [facility] | | | [facility] - | | | | | LABORATORY | + + + + + | MCH | 32.7 | 28.0 - 35.0 pg | [facility] | | | | [facility] | | [facility] - | | | | | LABORATORY | + + + + + | MCHC | 33.1 | 32.0 - 36.0 g/dL | [facility] | | | | | [facility] | | | [facility] - | | | | | LAB[facility]ATORY | + + + + + | RDW-CV | 14.8 | <15.0 % | [facility] | | | | [facility] | [facility] - | | | | | LAB[facility]ATORY | + + + + + | RDW-SD | 54.0 (H) | 35.1 - 46.3 fL | [facility] | | | | [facility] | [facility] - | | | | | LAB[facility]ATORY | + + + + + | Platelet Count | 213 | 140 - 440 K/uL | [facility] | | | [facility] - | | | | | LAB[facility]ATORY | + + + + + | MPV | 10.3 | 6.5 - 12.4 fL | [facility] | | | | [facility] | | | [facility] - | | | | | LAB[facility]ATORY | + + + + + | % Neutrophils | 83.7 (H) | 45.0 - 82.0 % | [facility] | | | | [facility] | | | [facility] - | | | | | LAB[facility]ATORY | + + + + + | % Lymphocytes | 9.0 (L) | 20.0 - 45.0 % | [facility] | | | | [facility] | | | | [facility] - | | | | | LABORATORY | + + + + + | % Monocytes | 6.4 | 4.0 - 12.0 % | [facility] | | | | | [facility] | | | | [facility] - | | | | | LAB[facility]ATORY | + + + + + | % Eosinophils | 0.1 | 0.0 - 5.0 % | [facility] | | | | | [facility] | | | | [facility] - | | | | | LABORATORY | + + + + + | % Basophils | 0.2 | 0.0 - 1.0 % | [facility] | | | | | [facility] | | | | [facility] - | | | | | LABORATORY | + + + + + | % Immature | 0.6 (H)Comment: | 0.0 - 0.4 % | [facility] | | Granulocytes | Preliminary studIes have | | [facility] | | | indicated the IG% | | CENTER - | | | and/or IG# show promise | | LABORATORY | | | as an early screen for | | | | | infection. | | | + + + + + | Absolute Neutrophils | 11.04 (H) | 1.80 - 8.50 K/uL | [facility] | | | | | [facility] | | | [facility] - | | | | | LABORATORY | + + + + + | Absolute Lymphocytes | 1.19 | 0.60 - 3.20 K/uL | [facility] | | | | | [facility] | | | | [facility] - | | | | | LAB[facility]ATORY | + + + + + | Absolute Monocytes | 0.85 | 0.00 - 1.00 K/uL | [facility] | | | | | [facility] | | | | [facility] - | | | | | LABORATORY | + + + + + | Absolute Eosinophils | 0.01 | 0.00 - 0.40 K/uL | [facility] | | | | | [facility] | | | | [facility] - | | | | | LAB[facility]ATORY | + + + + + | Absolute Basophils | 0.03 | 0.00 - 0.10 K/uL | [facility] | | | | | [facility] | | | | [facility] - | | | | | LAB[facility]ATORY | + + + + + | Absolute Immature | 0.08 (H) | 0.00 - 0.03 K/uL | [facility] | | Granulocytes | | | [facility] | | | [facility] - | | | | | LABORATORY | + + + + + | % nRBC | 0 | 0 - 2 per 100 WBC's | [facility] | | | | [facility] | | | [facility] - | | | | | LAB[facility]ATORY | + + + + + | Absolute nRBC | 0.00 | 0.00 - 0.01 K/uL | [facility] | | | | | [facility] | | | | | CENTER - | | | | | LABORATORY | + + + + + + + | Specimen | + + | Blood | + + + + + + + | Performing | Address | City/State/Zipcode | Phone Number | | Organization | | | | + + + + + | [facility] | [address] | [place] | [phone] | | [facility] | | [address] | | | - LABORATORY | | | | + + + + + Lactic Acid (11/03/2018 1630) + + + + + | Component | Value | Ref Range | Performed At | + + + + + | Lactate | 4.9 ()Comment: | 0.5 - 2.2 mmol/L | [facility] | | | Critical Result called | | [facility] | | | to and read back by troy Arauz | | | janessa GMOEZ on 11/03/2018 | | LABORATORY | | | at 23:44 by Gaurang | | | | | Vicky. | | | + + + + + + + | Specimen | + + | Blood | + + + + + + + | Performing | Address | City/State/Zipcode | Phone Number | | Organization | | | | + + + + + | [facility] | [address] | [place] | [phone] | | [facility] | | [address] | | | - LABORATORY | | | | + + + + + Culture, Blood (11/03/2018 1630) + + + + + | Component | Value | Ref Range | Performed At | + + + + + | Culture | No growth after 5 days | | [facility] | | | incubation. | | [facility] | | | | | CENTER - | | | | | LABORATORY | + + + + + + + | Specimen | + + | Blood | + + + + + + + | Performing | Address | City/State/Zipcode | Phone Number | | Organization | | | | + + + + + | [facility] | [address] | [place] | [phone] | | [facility] | | [address] | | | - LABORATORY | | | | + + + + + XR Chest AP Portable (11/03/2018 1557) + + + | Narrative | Performed [...] + +---------+ + + Protime INR (11/03/2018 150) + + + + + | Component | Value | Ref Range | Performed At | + + + + + | Protime | 18.1 (H) | 11.3 - 13.9 seconds | [facility] | | | | | [facility] | | | | [facility] - | | | | | LAB[facility]ATORY | + + + + + | INR | 1.5 (H)Comment: Usual | 0.9 - 1.1 | [facility] | | | Oral Anticoagulation | | [facility] | | | Range: 2.0 - | | CENTER - | | | 3.0High Level Oral | | LABORATORY | | | Anticoagulation Range: | | | | | 2.5 - 3.5 | | | + + + + + + + | Specimen | + + | Blood | + + + + + + + | Performing | Address | City/State/Zipcode | Phone Number | | Organization | | | | + + + + + | [facility] | [address] | [place] | [phone] | | [facility] | | [address] | | | - LABORATORY | | | | + + + + + XR Chest AP Portable (11/03/2018 1258) + + + | Narrative | Performed [...] + +---------+ + + ECG 12 lead (11/03/2018907) + + + + + | Component | Value | Ref Range | Performed At | + + + + + | VENTRICULAR RATE EKG | 119 | BPM | [facility] | + + + + + | QRS DURATION | 90 | ms | [facility] | + + + + + | Q-T INTERVAL | 338 | ms | [facility] | + + + + + | Q-T INTERVAL | 475 | ms | [facility] | | (CORRECTED) | | | | + + + + + | QRS AXIS | -54 | degrees | [facility] | + + + + + | T AXIS | 90 | degrees | [facility] | + + + + + | INTERPRETATION TEXT | Poor data quality, | | [facility] | | | interpretation may be | | | | | adversely affectedAtrial | | | | | fibrillation with rapid | | | | | ventricular | | | | | responseLeft anterior | | | | | fascicular | | | | | blockAnteroseptal | | | | | infarct , age | | | | | undeterminedT wave | | | | | abnormality, consider | | | | | lateral ischemiaAbnormal | | | | | ECGEKG of 03-NOV-2018 | | | | | 09:08, (Unconfirmed)Does | | | | | not load into [facility] for | | | | | comparisonConfirmed by | | | | | BASILIA SIMONS, SUSANNAH ([id number]) | | | | | on 11/03/2018 2:03:08 PM | | | + + + [...] | + +---------+ + + ECHO Complete (11/03/2018821) + +---------+ + + | Component | Value | Ref Range | Performed At | + +---------+ + + | BASELINE BLOOD | 127/107 | mmHg | [facility] | | PRESSURE | | | | + +---------+ + + | Patient Weight (lbs) | 199 lbs | | [facility] | + +---------+ + + | Patient Height | 69 in | | [facility] | + +---------+ + + | LVIDd | 6.04 | cm | [facility] | + +---------+ + + | FS | 19 | % | [facility] | + +---------+ + + | LA volume | 88.6 | mL | [facility] | + +---------+ + + | Ascending aorta | 5.32 | cm | [facility] | + +---------+ + + | Aortic arch | 2.42 | cm | [facility] | + +---------+ + + | AV mean gradient | 2.61 | mmHg | [facility] | + +---------+ + + | LVOT peak yesenia | 99.24 | cm/s | [facility] | + +---------+ + + | LVOT peak VTI | 17.07 | cm | [facility] | + +---------+ + + | AV VTI | 16.37 | cm | [facility] | + +---------+ + + | LA Volume Index | 43 | mL/m2 | [facility] | + +---------+ + + | AV LVOT Peak | 3.94 | mmHg | [facility] | | Gradient | | | | + +---------+ + + | AV LVOT Mean | 2.54 | mmHg | [facility] | | Gradient | | | | + +---------+ + + | LV Diastolic Length | 8.69 | cm | [facility] | | 4C | | | | + +---------+ + + | LV Systolic Area | 27.72 | cm2 | [facility] | | PSAX | | | | + +---------+ + + | RV Diastolic Basal | 3.19 | cm | [facility] | | Diameter | | | | + +---------+ + + | LV Rivas's Biplane | 24 | % | [facility] | | EF | | | | + +---------+ + + | AV Acceleration Time | 78.73 | msec | [facility] | + +---------+ + + | LV ED Volume | 97.45 | ml | [facility] | | (Rivas's) | | | | + +---------+ + + | LV ED Volume Index | 47 | ml/m2 | [facility] | + +---------+ + + | LV ES Volume | 74.28 | ml | [facility] | + +---------+ + + | LVOT Mean Velocity | 76.27 | cm/s | [facility] | + +---------+ + + | AV Mean Velocity | 74.55 | cm/s | [facility] | + +---------+ + + | RA Area | 34.01 | cm2 | [facility] | + +---------+ + + | LA/Aorta Ratio | 0.75 | | [facility] | + +---------+ + + | LA Area | 25.22 | cm2 | [facility] | + +---------+ + + | LA Major | 0.1637 | cm | [facility] | + +---------+ + + | LV ES Volume Index | 36 | ml/m2 | [facility] | + +---------+ + + | LV Area Diastolic | 31.61 | cm2 | [facility] | + +---------+ + + | Heart Rate | 98 | | [facility] | + +---------+ + + | Aortic Root Diameter | 5.21 | cm | [facility] | + +---------+ + + | IVS Diastolic | 1.06 | cm | [facility] | | Thickness MM | | | | + +---------+ + + | LVPW Diastolic | 0.94 | cm | [facility] | | Thickness MM | | | | + +---------+ + + | IVS Systolic | 1.4 | cm | [facility] | | Thickness MM | | | | + +---------+ + + | LV Systolic Diameter | 4.87 | cm | [facility] | | MM | | | | + +---------+ + + | LVPW Systolic | 1.25 | cm | [facility] | | Thickness MM | | | | + +---------+ + + | AV Cusp Seperation | 2.15 | cm | [facility] | | MM | | | | + +---------+ + + | LA Systolic Diameter | 3.93 | cm | [facility] | | MM | | | | + +---------+ + + | TAPSE | 1.38 | cm | [facility] | + +---------+ + + | LVEF-TTE | 20 | % | [facility] | | TRANSTHORACIC ECHO | | | | + +---------+ + + | RA PRESSURE | 8 | mmHg | [facility] | + +---------+ + + + + + | Narrative [...] | + +---------+ + + Lipid Panel (11/03/2018608) + +--------+ + + | Component | Value | Ref Range | Performed At | + +--------+ + + | Triglycerides | 68 | <=150 mg/dL | [facility] | | | [facility] | + +--------+ + + | Cholesterol | 166 | <=200 mg/dL | [facility] | | | | [facility] | + +--------+ + + | HDL | 74 (H) | 40 - 60 mg/dL | [facility] | | [facility] | | | | | [facility] | + +--------+ + + | Chol/HDL Ratio | 2.2 | | [facility] | | | [facility] - | | | | | [facility] | + +--------+ + + | LDL, Calculated | 78 | <=130 mg/dL | [facility] | | | [facility] | [facility] | | | | | [facility] | + +--------+ + + + + | Specimen | + + | Blood | + + + + + + + | Performing | Address | City/State/Zipcode | Phone Number | | Organization | | | | + + + + + | [facility] | [address] | [place] | [phone] | | [facility] | | [address] | | | - LABORATORY | | | | + + + + + TSH (11/03/2018608) + +-------+ + + | Component | Value | Ref Range | Performed At | + +-------+ + + | TSH | 2.12 | 0.55 - 4.78 uIU/mL | [facility] | | | | | [facility] | | | | | CENTER - | | | | | LABORATORY | + +-------+ + + + + | Specimen | + + | Blood | + + + + + + + | Performing | Address | City/State/Zipcode | Phone Number | | Organization | | | | + + + + + | [facility] | [address] | [place] | [phone] | | [facility] | | [address] | | | - LABORATORY | | | | + + + + + B Type Natriuretic Peptide (11/03/2018608) + +---------+ + + | Component | Value | Ref Range | Performed At | + +---------+ + + | BNP | 557 (H) | <100 pg/mL | [facility] | | | | | [facility] | | | | | CENTER - | | | | | LABORATORY | + +---------+ + + + + | Specimen | + + | Blood | + + + + + + + | Performing | Address | City/State/Zipcode | Phone Number | | Organization | | | | + + + + + | [facility] | [address] | [place] | [phone] | | [facility] | | [address] | | | - LABORATORY | | | | + + + + + Troponin I (11/03/2018608) + + + + + | Component | Value | Ref Range | Performed At | + + + + + | Troponin I | 0.25 (H) | <0.06 ng/mL | [facility] | | | | | [facility] | | | | | CENTER - | | | | | LABORATORY | + + + + + + + | Specimen | + + | Blood | + + + + + + + | Performing | Address | City/State/Zipcode | Phone Number | | Organization | | | | + + + + + | [facility] | [address] | [place] | [phone] | | [facility] | | [address] | | | - LABORATORY | | | | + + + + + Magnesium (11/03/2018608) + +-------+ + + | Component | Value | Ref Range | Performed At | + +-------+ + + | Magnesium | 1.8 | 1.8 - 2.5 mg/dL | [facility] | | | | | [facility] | | | | | CENTER - | | | | | LABORATORY | + +-------+ + + + + | Specimen | + + | Blood | + + + + + + + | Performing | Address | City/State/Zipcode | Phone Number | | Organization | | | | + + + + + | [facility] | [address] | [place] | [phone] | | [facility] | | [address] | | | - LABORATORY | | | | + + + + + Comprehensive Metabolic Panel (11/03/2018608) + + + + + | Component | Value | Ref Range | Performed At | + + + + + | Na | 134 (L) | 136 - 145 mmol/L | [facility] | [facility] - | | | | | LAB[facility] | + + + + + | K | 3.4 | 3.4 - 5.1 mmol/L | [facility] | | | [facility] - | | | | | LAB[facility]ATORY | + + + + + | Cl | 96 (L) | 98 - 107 mmol/L | [facility] | | | | [facility] - | | | | | LAB[facility]ORY | + + + + + | CO2 | 25 | 20 - 31 mmol/L | [facility] | | | | [facility] | [facility] | [facility] - | | | | | LAB[facility]ORY | + + + + + | Anion Gap | 13 | 3 - 16 mmol/L | [facility] | | | | [facility] - | | | | | LAB[facility]ATORY | + + + + + | Glucose | 127 (H) | 60 - 106 mg/dL | [facility] | | | | [facility] - | | | | | LAB[facility]ORY | + + + + + | BUN | 13 | 9 - 23 mg/dL | [facility] | | | | [facility] - | | | | | LAB[facility]ORY | + + + + + | Creatinine | 0.63 (L) | 0.70 - 1.30 mg/dL | [facility] | | | [facility] | [facility] - | | | | | LAB[facility]ATORY | + + + + + | eGFR if not | >60 | >=60 mL/min/1.73m2 | [facility] - | | | | | LAB[facility] | + + + + + | Ca | 9.6 | 8.7 - 10.4 mg/dL | [facility] | | | | [facility] - | | | | | LAB[facility]ORY | + + + + + | Albumin | 3.9 | 3.2 - 4.8 g/dL | [facility] | | | | [facility] - | | | | | LAB[facility]ORY | + + + + + | Bilirubin Total | 4.2 (H) | 0.3 - 1.2 mg/dL | [facility] | | | [facility] - | | | | | LAB[facility]ORY | + + + + + | Total Protein | 5.7 | 5.7 - 8.2 g/dL | [facility] | | | | [facility] - | | | | | LAB[facility]ORY | + + + + + | AST | 16 | 0 - 34 U/L | [facility] | | | [facility] - | | | | | LAB[facility]ORY | + + + + + | ALT | 32 | 10 - 49 U/L | [facility] | | | | [facility] - | | | | | [facility] | + + + + + | Alkaline Phosphatase | 47 | 46 - 116 U/L | [facility] | | | | [facility] - | | | | | LAB[facility]ORY | + + + + + | Globulin | 1.8 (L) | 2.1 - 3.8 g/dL | [facility] | | | | [facility] - | | | | | LAB[facility]ORY | + + + + + | Albumin/Globulin | 2.2 (H) | 0.8 - 1.9 | [facility] | | Ratio | | | [facility] | [facility] - | | | | | LAB[facility]ORY | + + + + + | BUN/Creatinine Ratio | 20.6 | | [facility] | | | | | [facility] | [facility] - | | | | | [facility]ORY | + + + + + + + | Specimen | + + | Blood | + + + + + + + | Performing | Address | City/State/Zipcode | Phone Number | | Organization | | | | + + + + + | [facility] | [address] | [place] | [phone] | | [facility] | | [address] | | | - LABORATORY | | | | + + + + + CBC with Differential (11/03/2018608) + + + + + | Component | Value | Ref Range | Performed At | + + + + + | WBC | 10.4 | 4.0 - 11.0 K/uL | [facility] | | | | | [facility] | | | | | CENTER - | | | | | LABORATORY | + + + + + | RBC | 4.52 | 4.30 - 5.70 M/uL | [facility] | | | | [facility] - | | | | | [facility] | + + + + + | Hemoglobin | 14.8 | 13.5 - 18.0 g/dL | [facility] | | | | [facility] - | | | | | [facility] | + + + + + | Hematocrit | 43.4 | 40.0 - 51.0 % | [facility] | | | [facility] - | | | | | LAB[facility] | + + + + + | MCV | 96.0 | 83.0 - 101.0 fL | [facility] | | | | [facility] - | | | | | [facility] | + + + + + | MCH | 32.7 | 28.0 - 35.0 pg | [facility] | | | | [facility] - | | | | | LAB[facility]ORY | + + + + + | MCHC | 34.1 | 32.0 - 36.0 g/dL | [facility] | | | | | [facility] - | | | | | LAB[facility] | + + + + + | RDW-CV | 14.6 | <15.0 % | [facility] | | | | [facility] - | | | | | LAB[facility]ORY | + + + + + | RDW-SD | 51.7 (H) | 35.1 - 46.3 fL | [facility] | | | | | [facility] | [facility] - | | | | | LAB[facility]ORY | + + + + + | Platelet Count | 186 | 140 - 440 K/uL | [facility] | | | [facility] - | | | | | [facility] | + + + + + | MPV | 10.4 | 6.5 - 12.4 fL | [facility] | | | | [facility] - | | | | | LAB[facility]ORY | + + + + + | % Neutrophils | 77.4 | 45.0 - 82.0 % | [facility] | | | | | [facility] | [facility] - | | | | | LAB[facility]ORY | + + + + + | % Lymphocytes | 10.9 (L) | 20.0 - 45.0 % | [facility] | | | | [facility] - | | | | | LAB[facility]ORY | + + + + + | % Monocytes | 10.5 | 4.0 - 12.0 % | [facility] | | | | | [facility] - | | | | | LAB[facility]ORY | + + + + + | % Eosinophils | 0.2 | 0.0 - 5.0 % | [facility] | | | | | [facility] | [facility] - | | | | | LAB[facility]ORY | + + + + + | % Basophils | 0.5 | 0.0 - 1.0 % | [facility] | | | | | [facility] | | | | [facility] - | | | | | LAB[facility] | + + + + + | % Immature | 0.5 (H)Comment: | 0.0 - 0.4 % | [facility] | | Granulocytes | Preliminary studIes have | | [facility] | | | indicated the IG% | | CENTER - | | | and/or IG# show promise | | LABORATORY | | | as an early screen for | | | | | infection. | | | + + + + + | Absolute Neutrophils | 8.07 | 1.80 - 8.50 K/uL | [facility] | | | | | [facility] | [facility] - | | | | | LAB[facility]ORY | + + + + + | Absolute Lymphocytes | 1.14 | 0.60 - 3.20 K/uL | [facility] | | | | | [facility] | [facility] | [facility] - | | | | | LAB[facility]ORY | + + + + + | Absolute Monocytes | 1.09 (H) | 0.00 - 1.00 K/uL | [facility] | | | | | [facility] - | | | | | LAB[facility]ORY | + + + + + | Absolute Eosinophils | 0.02 | 0.00 - 0.40 K/uL | [facility] | | | | | [facility] | [facility] - | | | | | [facility] | + + + + + | Absolute Basophils | 0.05 | 0.00 - 0.10 K/uL | [facility] | | | | | [facility] | [facility] - | | | | | [facility] | + + + + + | Absolute Immature | 0.05 (H) | 0.00 - 0.03 K/uL | [facility] | | Granulocytes | | | [facility] | | | [facility] - | | | | | LAB[facility]ORY | + + + + + | % nRBC | 0 | 0 - 2 per 100 WBC's | [facility] | | | | | [facility] | [facility] | [facility] - | | | | | [facility] | + + + + + | Absolute nRBC | 0.00 | 0.00 - 0.01 K/uL | [facility] | | | | | [facility] | [facility] | [facility] - | | | | | LAB[facility] | + + + + + + + | Specimen | + + | Blood | + + + + + + + | Performing | Address | City/State/Zipcode | Phone Number | | Organization | | | | + + + + + | [facility] | [address] | [place] | [phone] | | [facility] | | [address] | | | - LABORATORY | | | | + + + + + Troponin I (11/03/201826) + + + + + | Component | Value | Ref Range | Performed At | + + + + + | Troponin I | 0.31 (H) | <0.06 ng/mL | [facility] | | | | | [facility] | | | | | CENTER - | | | | | LABORATORY | + + + + + + + | Specimen | + + | Blood | + + + + + + + | Performing | Address | City/State/Zipcode | Phone Number | | Organization | | | | + + + + + | [facility] | [address] | [place] | [phone] | | [facility] | | [address] | | | - LABORATORY | | | | + + + + + Drugs of Abuse, Screen, Urine (11/03/201821) + + + + + | Component | Value | Ref Range | Performed At | + + + + + | Amphetamine Screen, | Negative | Negative | [facility] | | Urine | | | [facility] - | | | | | LAB[facility] | + + + + + | Barbiturates Screen, | Negative | Negative | [facility] | | Urine | | | [facility] | | | | [facility] - | | | | | LAB[facility]ATORY | + + + + + | Benzodiazepines | Negative | Negative | [facility] | | Screen, Urine | | | [facility] | | [facility] - | | | | | LAB[facility]ATORY | + + + + + | Cannabinoids Screen, | Positive (A) | Negative | [facility] | | Urine | | | [facility] | | | | [facility] - | | | | | LAB[facility]ATORY | + + + + + | Cocaine Screen, | Negative | Negative | [facility] | | Urine | | | [facility] | | | | [facility] - | | | | | LAB[facility]ATORY | + + + + + | Methadone Screen, | Negative | Negative | [facility] | | Urine | | | [facility] | | | | [facility] - | | | | | LAB[facility]ATORY | + + + + + | Opiates Screen, | Positive (A) | Negative | [facility] | | Urine | | | [facility] | | | | | CENTER - | | | | | LABORATORY | + + + + + + + | Specimen | + + | Urine | + + + + + + + | Performing | Address | City/State/Zipcode | Phone Number | | Organization | | | | + + + + + | [facility] | [address] | [place] | [phone] | | [facility] | | [address] | | | - LABORATORY | | | | + + + + + Troponin I (11/02/20181832) + + + + + | Component | Value | Ref Range | Performed At | + + + + + | Troponin I | 0.29 (H) | <0.06 ng/mL | [facility] | | | | | [facility] | | | | [facility] - | | | | | LAB[facility]ATORY | + + + + + + + | Specimen | + + | Blood | + + + + + + + | Performing | Address | City/State/Zipcode | Phone Number | | Organization | | | | + + + + + | [facility] | [address] | [place] | [phone] | | [facility] | | [address] | | | - LABORATORY | | | | + + + + + Culture, MRSA (11/02/2018 1800) + + + + + | Component | Value | Ref Range | Performed At | + + + + + | Culture | Negative for MRSA by | | [facility] | | | chromogenic agar method | | [facility] | | | | | CENTER - | | | | | LABORATORY | + + + + + + + | Specimen | + + | Tissue - Nares | + + + + + + + | Performing | Address | City/State/Zipcode | Phone Number | | Organization | | | | + + + + + | [facility] | [address] | [place] | [phone] | | [facility] | | [address] | | | - LABORATORY | | | | + + + + + IMAGING REPORT - EXTERNAL SCAN (11/02/2018) + + + | Narrative | Performed At | + + + | Ordered by an | | | unspecified provider. | | + + + IMAGING REPORT - EXTERNAL SCAN (11/02/2018) + + + | Narrative | Performed At | + + + | Ordered by an | | | unspecified provider. | | + + + IMAGING REPORT - EXTERNAL SCAN (11/02/2018) + + + | Narrative | Performed At | + + + | Ordered by an | | | unspecified provider. | | + + + ECG - EXTERNAL SCAN (11/02/2018) + + + | Narrative | Performed At | + + + | Ordered by an | | | unspecified provider. | | + + + in this encounter Visit Diagnoses + + | Diagnosis | + + | Atrial fibrillation, unspecified type (HCC) | + + | Atrial fibrillation with RVR (HCC) | + + | Atrial fibrillation | + + | Panlobular emphysema (HCC) | + + | Other emphysema | + + | Troponin level elevated | + + | Other abnormal blood chemistry | + + | Gastroesophageal reflux disease, esophagitis presence not specified | + + | Cerebrovascular accident (CVA) due to thrombosis of cerebral artery (HCC) | + + | Cardiogenic shock (HCC) | + + | Cardiogenic shock | + + Admitting Diagnoses + + | Diagnosis | + + | Afib | + + Administered Medications + +--------+ +-------+------+------+ | Medication Order | MAR | Action | Dose | Rate | Site | | | Action | Date | | | | + +--------+ +-------+------+------+ | albuterol-ipratropium 2.5-0.5 | Given | 11/03/2018 | 3 mLs | | | | mg/3 mL nebulizer solution 3 mL | | 7:18 | | | | | 3 mL, Nebulization, RT EVERY 6 | | PST | | | | | HOURS PRN, Shortness of Breath, | | | | | | | Starting 11/02/18 at 1819 | | | | | | + +--------+ +-------+------+------+ +-------+ +-------+---+---+ | Given | 11/03/2018 | 3 mLs | | | | | 11:42 | | | | | | PST | | | | +-------+ +-------+---+---+ | Given | 11/03/2018 | 3 mLs | | | | | 16:10 | | | | | | PST | | | | +-------+ +-------+---+---+ +---+---+ | | | +---+---+ + +---------+ + +-------+---+ | amiodarone in dextrose | New Bag | 11/03/2018 | 1 mg/min | 33.3 | | | (NEXTERONE) 1.8 mg/mL infusion 1 | | 11:41 | | mL/hr | | [...] | | | | | | | administration. | | | | | | + +---------+ + +-------+---+ +---+---+ | | | +---+---+ + +-------+ +--------+-------+---+ | amiodarone in dextrose | Given | 11/03/2018 | 150 mg | 600 | | | (NEXTERONE) 150 mg/100 mL bolus | | 11:18 | | mL/hr | | | 150 mg 150 mg, Intravenous, | | PST | | | | | Administer over 10 Minutes, ONCE, | | | | | | | [place] 11/03/18 at 1100, For 1 dose, | | | | | | | For Rhythm Control Use 0.2 micron | | | | | | | filter for administration. | | | | | | + +-------+ +--------+-------+---+ +---+---+ | | | +---+---+ + +-------+ +------+---+---+ | apixaban (ELIQUIS) tablet 5 mg | Given | 11/03/2018 | 5 mg | | | | 5 mg, Oral, 2 TIMES DAILY, First | | 8:54 | | | | | dose on 11/03/18 at 0900 | | PST | | | | + +-------+ +------+---+---+ +---+---+ | | | +---+---+ + +-------+ +-------+---+---+ | aspirin EC tablet 81 mg 81 mg, | Given | 11/03/2018 | 81 mg | | | | Oral, DAILY, First dose on Sun | | 8:46 | | | | | 11/03/18 at 0900, Do not cut or | | PST | | | | | crush. | | | | | | + +-------+ +-------+---+---+ +---+---+ | | | +---+---+ + +-------+ +------+---+---+ | atropine 0.1 mg/mL syringe 1 mg | Given | 11/03/2018 | 1 mg | | | | 1 mg, Intravenous, ONCE, Sun | | 17:15 | | | | | 11/03/18 at 1715, For 1 dose | | PST | | | | + +-------+ +------+---+---+ +---+---+ | | | +---+---+ + +-------+ +-------+---+---+ | carvedilol (COREG) tablet 25 mg | Given | 11/03/2018 | 25 mg | | | | 25 mg, Oral, ONCE, 11/03/18 | | 10:12 | | | | | at 1000, For 1 dose | | PST | | | | + +-------+ +-------+---+---+ +---+---+ | | | +---+---+ + +---------+ +-----+-------+---+ | cefTRIAXone (ROCEPHIN) 1 g in | New Bag | 11/03/2018 | 1 g | 100 | | | sodium chloride 0.9% 50 mL IVPB | | 16:30 | | mL/hr | | | 1 g, Intravenous, Administer over | | PST | | | | | 30 Minutes, EVERY 24 HOURS | | | | | | | INTERVAL, First dose on Sun | | | | | | | 11/03/18 at 1500, Activate system | | | | | | | and mix before use. | | | | | | + +---------+ +-----+-------+---+ +---+---+ | | | +---+---+ + + + + + +---+ | dilTIAZem (CARDIZEM) 1 mg/mL in | Rate/Dos | 11/03/2018 | 10 mg/hr | 10 mL/hr | | | sodium chloride 0.9% 125 mL | e Change | 0:20 | | | | | infusion 5-15 mg/hr (5-15 | | PST | | | | | mL/hr), at 5-15 mL/hr, | | | | | | | Intravenous, TITRATED, Starting | | | | | | | 11/02/18 at 1845, Titration | | | | | | | Instruction: See below | | | | | | + + + + + +---+ + + + + +---+ | Rate/Dose Change | 11/03/2018 | 15 mg/hr | 15 mL/hr | | | | 6:00 | | | | | | PST | | | | + + + + +---+ | New Bag | 11/03/2018 | 15 mg/hr | 15 mL/hr | | | | 8:50 | | | | | | PST | | | | + + + + +---+ +---+---+ | | | +---+---+ + + + + +-------+---+ | DOPamine in dextrose 1,600 | Rate/Dos | 11/03/2018 | 14 | 47.6 | | | mcg/mL infusion 5 mcg/kg/min | e Change | 20:26 | mcg/kg/m | mL/hr | | | 90.7 kg (17.0063 mL/hr, rounded | | PST | in | | | | to 17 mL/hr), Intravenous, at 17 | | | | | | | mL/hr, TITRATED, Starting Sun | | | | | | | 11/03/18 at 1730, Titration | | | | | | | Instruction: See below | | | | | | + + + + +-------+---+ + + + + +---+ | Rate/Dose Change | 11/03/2018 | 12 | 40.8 | | | | 20:32 | mcg/kg/m | mL/hr | | | | PST | in | | | + + + + +---+ | Rate/Dose Change | 11/03/2018 | 10 | 34 mL/hr | | | | 20:56 | mcg/kg/m | | | | | PST | in | | | + + + + +---+ +---+---+ | | | +---+---+ + +-------+ +-------+---+ + | enoxaparin (LOVENOX) 40 mg/0.4 | Given | 11/03/2018 | 40 mg | | Abdomen- | | mL injection 40 mg 40 mg, | | 16:44 | | | LUQ | | Subcutaneous, EVERY 24 HOURS | | PST | | | | | INTERVAL, First dose on Sun | | | | | | | 11/03/18 at 1600 | | | | | | + +-------+ +-------+---+ + +---+---+ | | | +---+---+ + +---------+ +---------+-------+---+ | EPINEPHrine 16 mcg/mL in sodium | New Bag | 11/03/2018 | 1 | 3.8 | | | chloride 0.9% 250 mL infusion | | 19:10 | mcg/min | mL/hr | | [...] | | | | | | | below | | | | | | + +---------+ +---------+-------+---+ + + +---------+-------+---+ | Rate/Dose Change | 11/03/2018 | 5 | 18.8 | | | | 19:24 | mcg/min | mL/hr | | | | PST | | | | + + +---------+-------+---+ +---+---+ | | | +---+---+ + +-------+ +-------+---+---+ | etomidate (AMIDATE) injection | Given | 11/03/2018 | 20 mg | | | | 20 mg 20 mg, Intravenous, ONCE, | | 17:29 | | | | | 11/03/18 at 1845, For 1 dose | | PST | | | | + +-------+ +-------+---+---+ +---+---+ | | | +---+---+ + +-------+ +--------+---+---+ | fentaNYL (PF) injection 25-100 | Given | 11/03/2018 | 50 mcg | | | | mcg 25-100 mcg, Intravenous, | | 20:10 | | | | | EVERY 5 MIN PRN, Pain, Starting | | PST | | | | | 11/03/18 at 1742, To maximum of | | | | | | | 400 mcg in 4 hours | | | | | | + +-------+ +--------+---+---+ +-------+ +---------+---+---+ | Given | 11/03/2018 | 100 mcg | | | | | 20:32 | | | | | | PST | | | | +-------+ +---------+---+---+ | Given | 11/03/2018 | 100 mcg | | | | | 21:27 | | | | | | PST [...] furosemide (LASIX) injection 20 | Given | 11/03/2018 | 20 mg | | | | mg 20 mg, Intravenous, ONCE, | | 11:06 | | | | | 11/03/18 at 1100, For 1 dose | | PST | | | | + +-------+ +-------+---+---+ +---+---+ | | | +---+---+ + +-------+ +--------+---+---+ | lisinopril (PRINIVIL, ZESTRIL) | Given | 11/03/2018 | 2.5 mg | | | | tablet 2.5 mg 2.5 mg, Oral, | | 11:22 | | | | | DAILY, [...] Reassess in 15 | | | min | | + +---+ | | | + +---+ + +---------+ +-----+ +---+ | magnesium sulfate 2 g/50 mL | New Bag | 11/03/2018 | 2 g | 25 mL/hr | | | IVPB 2 g 2 g, Intravenous, | | 8:46 | | | | | Administer over 120 Minutes, | | PST | | | | | ONCE, [place] 11/03/18 at 0800, For 1 | | | | | | | dose, Maximum recommended | | | | | | | infusion rate = 1 gram/hour. | | | | | | + +---------+ +-----+ +---+ +---+---+ | | | +---+---+ + + + +---------+---------+---+ | midazolam (VERSED) 1 mg/mL in | Rate/Dos | 11/03/2018 | 9 mg/hr | 9 mL/hr | | | sodium chloride 0.9% 100 mL 2-15 | e Change | 20:34 | | | | | mg/hr (2-15 mL/hr), at 2-15 | | PST | | | | | mL/hr, Intravenous, TITRATED, | | | | | | | Starting [place] 11/03/18 at 1830, | | | | | | | Titration Instruction: See below | | | | | | + + + +---------+---------+---+ + + + + +---+ | Rate/Dose Change | 11/03/2018 | 10 mg/hr | 10 mL/hr | | | | 20:40 | | | | | | PST | | | | + + + + +---+ | Rate/Dose Change | 11/03/2018 | 11 mg/hr | 11 mL/hr | | | | 21:20 | | | | | | PST [...] +---+ | | | + +---+ + + + +---------+-------+---+ | norepinephrine in saline | Rate/Dos | 11/03/2018 | 25 | 93.8 | | | (LEVOPHED) 16 mcg/mL infusion | e Change | 17:11 | mcg/min | mL/hr | | [...] | | | | | | | below | | | | | | + + + +---------+-------+---+ + + +---------+--------+---+ | Rate/Dose Change | 11/03/2018 | 30 | 112.5 | | | | 17:30 | mcg/min | mL/hr | | | | PST | | | | + + +---------+--------+---+ | New Bag | 11/03/2018 | 30 | 112.5 | | | | 21:08 | mcg/min | mL/hr | | | | PST | | | | + + +---------+--------+---+ +---+---+ | | | +---+---+ + +-------+ +-------+---+---+ | pantoprazole (PROTONIX) DR | Given | 11/03/2018 | 40 mg | | | | tablet 40 mg 40 mg, Oral, DAILY | | 8:54 | | | | | BEFORE BREAKFAST, First dose on | | PST | | | | | 11/03/18 at 0915, Do not cut or | | | | | | | crush. | | | | | | + +-------+ +-------+---+---+ +---+---+ | | | +---+---+ + +-------+ +--------+---+---+ | potassium chloride (Klor-Con | Given | 11/03/2018 | 40 mEq | | | | M20) ER tablet 40 mEq 40 mEq, | | 8:46 | | | | | Oral, ONCE, 11/03/18 at 0800, | | PST | | | | | For 1 dose | | | | | | + +-------+ +--------+---+---+ +---+---+ | | | +---+---+ + +---------+ +---------+-------+---+ | sodium chloride 0.9% (NS) bolus | New Bag | 11/03/2018 | 250 mLs | 250 | | | 250 mL 250 mL, Intravenous, | | 14:34 | | mL/hr | | | Administer over 1 Hours, ONCE, | | PST | | | | | 11/03/18 at 1445, For 1 dose | | | | | | + +---------+ +---------+-------+---+ +---+---+ | | | +---+---+ + +-------+ +--------+---+---+ | succinylcholine (ANECTINE) | Given | 11/03/2018 | 100 mg | | | | injection 100 mg 100 mg, | | 17:30 | | | | | Intravenous, ONCE, Ana 11/03/18 at | | PST | | | | | 1730, For 1 dose, *WARNING: | | | | | | | PARALYTIC AGENT Patient must be | | | | | | | on ventilator* Keep in | | | | | | | refrigerator. | | | | | | + [...] | vecuronium (NORCURON) injection | Given | 11/03/2018 | 10 mg | | | | 10 mg 10 mg, Intravenous, ONCE, | | 17:35 | | | | | 11/03/18 at 1745, For 1 dose, | | PST | | | | | Mix with 10 mL sterile water to | | | | | | | make 1 mg/mL. *WARNING: PARALYTIC | | | | | | | AGENT Patient must be on | | | | | | | ventilator* | | | | | | + +-------+ +-------+---+---+ +---+---+ | | | +---+---+ in this encounter
--- OUTSIDE RECORDS SUMMARY | ~2018-11-24 | XMS | Clinical Summary ---
Demographics + + + | Address | [address] | | | [place] [address] | + + + | Home Phone [...] + + | Author | [facility] | | | and [place] | + + + | Organization | [facility] | | | and [place] | + + + | Address | Unknown | + + + | Phone | Unavailable | + + + Support + + + + + | Name | Relationship | Address | Phone | + + + + + | Aline Salinas | ECON | [place] | | | | | [phone] | | + + + + + | Message,Detailed | ECON | Unknown | | + + + + + Care Team Providers + +------+ + | Care Dairy Worker Name | Role | Phone | [...] | | | | Activ | | albuterol-ipratropiu | nebulization. | | | | | e | | m (DUONEB) 2.5-0.5 | | | | | | | | mg/3 mL SOLN | | | | | | | + + +--------+---------+------+------+-------+ | losartan (COZAAR) | Take 50 mg by mouth | | | | | Activ | | 50 mg tablet | Daily. | | | | | e | + + +--------+---------+------+------+-------+ | hydrALAZINE | Take 25 mg by mouth. | | | | | Activ | | (APRESOLINE) 25 mg | | | | | | e | | tablet | | | | | | | + + +--------+---------+------+------+-------+ | carvedilol (COREG) | Take 12.5 mg by | | | | | Activ | | 12.5 mg tablet | mouth. | | | | | e | + + +--------+---------+------+------+-------+ | amLODIPine | Take 5 mg by mouth | | | | | Activ | | (NORVASC) 5 mg | Daily. | | | | | e | | tablet | | | | | | | + + +--------+---------+------+------+-------+ | chlorproMAZINE | Take 1 tablet by | 90 | 2 | 03/0 | | Activ | | (THORAZINE) 25 mg | mouth 3 times daily. | tablet | | 9/20 | | e | | tablet | | | | 18 | | | + + +--------+---------+------+------+-------+ | aspirin 81 mg EC | Take 81 mg by mouth | | | | | Activ | | tablet | Daily. | | | | | e | + + +--------+---------+------+------+-------+ Active Problems + + + | Problem | Noted Date | + + + | Atrial fibrillation with RVR ([facility]) | 11/03/2018 | + + + | Troponin level elevated | 11/03/2018 | + + + | Cardiogenic shock (HCC) | 11/03/2018 | + + + | Cerebrovascular accident (CVA) due to thrombosis of cerebral | 11/09/2017 | | artery (HCC) | | + + + | Special [...] (HCC) | 01/20/2016 | + + + Encounters +--------+ + + + + | Date | Type | Specialty | Care Team | Description | +--------+ + + + + | 11/02/ | Hospital | | Arlin Chou | Atrial fibrillation, | | 2018 - | Encounter | | MD Anabel | unspecified type | | | | | Natalie Reyes MD | ([facility]); Atrial | | 11/03/ | | | | fibrillation with | | 2018 | | | | RVR ([facility]); | | | | | | Panlobular emphysema | | | | | | ([facility]); Troponin | | | | | | level elevated; | | | | | | Gastroesophageal | | | | | | reflux disease, | | | | | | esophagitis presence | | | | | | not specified | +--------+ + + + + +---+ + | | Discharge | | | Summaries | | | - Eric, | | | MD Natalie - | | | 11/03/2018 | | | 1847 PST | | | Formatting | | | of this | | | note may be | | | different | | | from the | | | original.[facility] | | | [facility] | [facility] | | | DISCHARGE | | | SUMMARYPt. | | | Name/Age/DO | | | B: Aline | | | Ricci Domínguez | | | 53 y.o. | | | 1965 | | | | | | Medical | | | Record | | | Number: | | | | | | [id number] | | | Date of | | [...] | | worsening | | | shock 11/03 | | | requiring | | | [...] | | transfer | | | to [facility] | | | for higher | | [...] | | | Encounters: | | | 03// | | | 90.7 kg | | [...] | | | 18:47 | | | [place] [facility] | +---+ + from Last 3 Months [...] the | | | | | RVR ([facility]) | results section. | + +--------+ [...] 3 Months Results ECG 12 lead (11/03/2018 1810)Only the most recent of 2 results within the time period is in cluded. + + + + + | Component [...] presentConfirmed by | | | | | SUSANNAH CUI MD ([id number]) | | | | | on 11/04/2018 [...] + + XR Chest AP Portable (11/03/2018 1803)Only the most recent of 3 results within the time per iod is included. + + + | Narrative [...] +---------+ + + POC Blood Gases (11/03/2018 1801) + + + + + | Component [...] [facility] | | | | | [facility] | | | | | CENTER - | | | | | LABORATORY | + + + + + | PO2, POC | 45.8 (L) | 60 - 750.0 mmHg | [facility] | | | | | [facility] | | | | | CENTER - [...] [address] | [place] | [phone] | | [facility] | | [address] | | | - LABORATORY | | | | + + + + + Extra Plain Red Top Tube (11/03/2018 1650) + +-------+ + + | Component | Value | Ref Range | Performed At | + +-------+ + + | Extra Plain Red Top | Done | | [facility] | | Tube | | | [facility] | | | | | CENTER - | | | | | LABORATORY | + +-------+ + + + + | Specimen | + + | Blood | + + + + + + + | Performing | Address | City/State/Zipcode | Phone Number | | Organization | | | | + + + + + | [facility] | [address] | [place], [place] | [phone] | | [facility] | | [address] | | | - LABORATORY | | | | + + + + + Extra Green Top Tube (11/03/2018 436) + +-------+ + + | Component | Value | Ref Range | Performed At | + +-------+ + + | Extra Green Top Tube | Done | | [facility] | | | | | [facility] | | | | | CENTER - | | | | | LABORATORY | + +-------+ + + + + | Specimen | + + | Blood | + + + + + + + | Performing | Address | City/State/Zipcode | Phone Number | | Organization | | | | + + + + + | [facility] | [address] | [place] | [phone] | | [facility] | | [address] | | | - LABORATORY | | | | + + + + + Extra Gold Top Tube (11/03/2018 1650) + +-------+ + + | Component | Value | Ref Range | Performed At | + +-------+ + + | Extra Gold Top Tube | Done | | [facility] | | | | | [facility] | | | | | CENTER - [...] ST. | [address] | [place], [place] | [phone] | | [facility] | | [address] | | | - LABORATORY | | | | + + + + + Culture, Blood (11/03/2018 1632)Only the most recent of 2 results within the time period is included. + + + + + | Component | Value | Ref Range | Performed At | + + + + + | Culture | No growth after 5 days | | [facility] | | | incubation. | | [facility] | | | | | CENTER - | | | | | LABORATORY | + + + + + + + | Specimen | + + | Blood | + + + + + + + | Performing | Address | City/State/Zipcode | Phone Number | | Organization | | | | + + + + + | [facility] | [address] | [place] | [phone] | | [facility] | | [address] | | | - LABORATORY | | | | + + + + + CBC with Differential (11/03/2018 1630)Only the most recent of 2 results within the time hyacinth perez is included. + + + + + | Component | Value | Ref Range | Performed At | + + + + + | WBC | 13.2 (H) | 4.0 - 11.0 K/uL | [facility] | | | | | [facility] | | | | | CENTER - | | | | | LABORATORY | + + + + + | RBC | 4.80 | 4.30 - 5.70 M/uL | [facility] [...] 0.00 | 0.00 - 0.01 K/uL | [facility] | | | | | [facility] | | | | | CENTER - | | | | | LABORATORY | + + + + + + + | Specimen | + + | Blood | + + + + + + + | Performing | Address | City/State/Zipcode | Phone Number | | Organization | | | | + + + + + | [facility] | [address] | [place], [place] | [phone] | | [facility] | | [address] | | | - LABORATORY | | | | + + + + + Lactic Acid (11/03/2018 1630) + + + + + | Component | Value | Ref Range | Performed At | + + + + + | Lactate | 4.9 ()Comment: | 0.5 - 2.2 mmol/L | [facility] | | | Critical Result called | | [facility] | | | to and read back by troy | | ALETHEA - | | | janessa GOMEZ on 11/03/2018 | | LABORATORY | | [...] + | [facility] | [address] | [place] | [phone] | | [facility] | | [address] | | | - LABORATORY | | | | + + + + + Basic Metabolic Panel (11/03/2018 1630) + +---------+ + + | Component | Value | Ref Range | Performed At | + +---------+ + + | Na | 131 (L) | 136 - 145 mmol/L | [facility] | | | | | [facility] | | | | | CENTER - [...] >=60 mL/min/1.73m2 | [facility] | | [place] | | | [facility] | | [...] | BUN/Creatinine Ratio | 14.3 | | [facility] | | | | | [facility] | | | | | CENTER - [...] [address] | [place] | [phone] | | [facility] | | [address] | | | - LABORATORY | | | | + + + + + Protime INR (11/03/2018 1503) + + + + + | Component [...] | | | Oral Anticoagulation | | [facility] | | | Range: 2.0 - [...] [address] | [place] | [phone] | | [facility] | | [address] | | | - LABORATORY | | | | + + + + + ECHO Complete (11/03/2018821) + +---------+ [...] | Chol/HDL Ratio | 2.2 | | [facility] | | | | | [facility] | | | | | CENTER - | | | | | LABORATORY | + +--------+ + + | LDL, Calculated | 78 | <=130 mg/dL | [facility] | | | | | [facility] | | | | | CENTER - | | | | | LABORATORY | + +--------+ + + + + | Specimen | + + | Blood | + + + + + + + | Performing | Address | City/State/Zipcode | Phone Number | | Organization | | | | + + + + + | [facility] | [address] | [place], [place] | [phone] | | [facility] | | [address] | | | - LABORATORY | | | | + + + + + Troponin I (11/03/2018 0609)Only the most recent of 3 results within the time period is inc luded. + + + + + | Component | Value | Ref Range | Performed At | + + + + + | Troponin I | 0.25 (H) | <0.06 ng/mL | [facility] | | | | | [facility] | | | | | CENTER - | | | | | LABORATORY | + + + + + + + | Specimen | + + | Blood | + + + + + + + | Performing | Address | City/State/Zipcode | Phone Number | | Organization | | | | + + + + + | [facility] | [address] | [place] | [phone] | | [facility] | | [address] | | | - LABORATORY | | [...] [address] | [place] | [phone] | | [facility] | | [address] | | | - LABORATORY | | | | + + + + + B Type Natriuretic Peptide (11/03/2018608) + +---------+ + + | Component | Value | Ref Range | Performed At | + +---------+ + + | BNP | 557 (H) | <100 pg/mL | [facility] | | | | | [facility] | | | | | CENTER - | | | | | LABORATORY | + +---------+ + + + + | Specimen | + + | Blood | + + + + + + + | Performing | Address | City/State/Zipcode | Phone Number | | Organization | | | | + + + + + | [facility] | [address] | [place] | [phone] | | [facility] | | [address] | | | - LABORATORY | | | | + + + + + Magnesium (11/03/2018608) + +-------+ + + | Component | Value | Ref Range | Performed At | + +-------+ + + | Magnesium | 1.8 | 1.8 - 2.5 mg/dL | [facility] | | | | | [facility] | | | | | CENTER - [...] [address] | [place] | [phone] | | [facility] | | [address] | | | - LABORATORY | | [...] >=60 mL/min/1.73m2 | [facility] | | [place] | | | [facility] | | [...] ST. | | Ratio | | | [facility] | | | | | CENTER - | | | | | LABORATORY | + + + + + | BUN/Creatinine Ratio | 20.6 | | [facility] | | | | | [facility] | | | | | CENTER - [...] [address] | [place] | [phone] | | [facility] | | [address] | | | - LABORATORY | | [...] ST. | [address] | [place], [place] | [phone] | | [facility] | | [address] | | | - LABORATORY | | | | + + + + + Culture, MRSA (11/02/2018 1800) + + + + + | Component | Value | Ref Range | Performed At | + + + + + | Culture | Negative for MRSA by | | [facility] | | | chromogenic agar method | | [facility] | | | | | CENTER - [...] [address] | [place] | [phone] | | [facility] | | [address] | | | - LABORATORY | | | | + + + + + IMAGING REPORT - EXTERNAL SCAN (11/02/2018)Only the most recent of 3 results within the period is included. + + + | [...] Last 3 Months Insurance + +--------+ +--------+ +---------+ | Payer | Benefi | Subscriber | Type | Phone | Address | | | t Plan | ID | | | | | | / | | | | | | | Group | | | | | + +--------+ +--------+ +---------+ | [employer] | MOD[employer] | [id number] | Medica | +- | | | MEDICAID HMO | HEALTH | | id | [id number] | | | | [place] | | | | | | | [place] | | | | | + +--------+ +--------+ +---------+ | [employer] | [employer] | [id number] | Medica | +- | | | MEDICAID HMO | HEALTH | | id | 9821 | | | | [place] | | | | | | | [place] | | | | | + +--------+ +--------+ +---------+ + +--------+ +--------+ + + | Guarantor Name | Accoun | Relation to | Date | Phone | Billing Address | | | t Type | Patient | of | | | | | | | | | | + +--------+ +--------+ + + | ALINE DOMÍNGUEZ | Person | Self [birth year] | Work: | [address] | | | al/[employer] | | 1964 | [phone] | [place] | | | [employer] | | | [phone]: | [address] | | | | | | | | | | | | [phone] | | | | | | [phone] | | + +--------+ +--------+ + + | ALINE DOMÍNGUEZ | Person | Self | [birth year] | Home: | [address] | | | al/Fam | | 1965 | [phone] | [place] | | | [place] | | | [address] | [phone] | + +--------+ +--------+ + +
--- OUTSIDE RECORDS SUMMARY | ~2018-11-24 | XMS | Clinical Summary ---
Demographics + + + | Address | [address] | | | [place] [address] | + + + | Home Phone | | + + + | Preferred Language | Unknown | + + + | Marital Status | Unknown | + + + | Baptist Affiliation | Unknown | + + + | Race | Unknown | + + + | Ethnic Group | Unknown | + + + Author + + + | Author | [facility] | + + + | Organization | [facility] | + + + | Address | [...] Team Providers + +------+ + | Care Fountain Pen Nibs Inspector Name | Role | Phone | [...] + | Atrial fibrillation with RVR ([facility]) | 11/03/2018 | + + + | Troponin level elevated | 11/03/2018 | + + + | Cerebrovascular accident (CVA) due to thrombosis of cerebral | 11/09/2017 | | artery ([facility]) | | + + + | Alcohol [...] + + | SWEETIE (acute kidney injury) ([facility]) | 11/05/19 | | | | 19 | 9 | + + + + | Cardiogenic shock ([facility]) | 11/04/19 | | | | 19 [...] | | | | | with RVR ([facility]); | | | | | | 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 The | | | sweep molder | | | service at | | | [facility] was | | | consulted, | [...] | | while at | | | [facility]. | | | Echo here | | [...] | | checked at | | | [facility] | | | - all | | [...] | | | [place], | | | [id number] | | [address] | | | [place] | | | [place] | | | [phone] | | | [phone] | | | days[facility]ADLEC | | | CLINIC | | | CARDIOLOGY1 | | | [address] | | | [place] | | | [place] | | | [place] | | | [address] | | | [phone] | | | [...] | | [place] | | | [place] [address] | | | Phone: | | | [phone] | | | 1 | | | [...] [place], | | | | | | [place] [address] | | | | | | [phone] | | | | | | | [...] +--------+ + + + | PROCALCITONIN | CLVOER | 11/07/2018 | | Results for this [...] Aline Domínguez Date of : 1965 | [facility] | | Performing Physician: Gabe Conrad | [...] ml LALs A4C: 7.94 cm AR Dec Catawba: 2.59 m/s2 AR Dec | | | [...] TR maxP.56 mmHg TR Vmax: 2.57 m/s Warehouse Man: ESTUARDO | | | Authenticated by: Gabe Conrad Report Date/Time: 11-07-2018 | | | 13:10:35 | | + + + + + | Procedure Note | + + | Osmin, Rad Results In - 11/07/2018 1:21 PM PST Patient Name: Fahad Domínguez of | | : 1965Accession: [id number] Physician: Gabe | | [facility] INDICATIONS------ | | -----cariomyopathyCONCLUSIONS 1. The left [...] mlLAESV Index (A-L): 59.37 ml/m2LAAs A2C: 32.31 [id number] | | A-L A2C: 132.42 mlLALs A2C: 6.69 cmLAAs A4C: 29.99 [id number] A-L A4C: 96.05 | | mlLALs A4C: 7.94 cmAR Dec Catawba: 2.59 m/s2AR Dec Time: 1546.99 msAR maxP.22 | | mmHgAR PHT: 448.62 msAR Vmax: 4.00 m/sHR: 109.18 BPMAV maxP.06 mmHgAV | | meanP.76 mmHgAV Vmax: 1.00 m/Neymar Vmean: 0.81 m/Neymar VTI: 21.36 cmAVA Vmax: | | 2.99 cm2AVA (VTI): 2.00 ic3LJTE Vmax: 0.00 cm2/m2AVAI (VTI): 0.00 cm2/m2LVOT | [...] |LALs A4C: 7.94 cm | |AR Dec Catawba: 2.59 m/s2 | |AR Dec Time: 1546.99 [...] |TR Vmax: 2.57 m/s | | | |Warehouse Man: MW | |Authenticated by: Gabe Pinedatolland | |Report Date/Time: 11-07-2018 13:10:35 | | [...] | + + + + + | [facility] | [address] | [place] [address] | | + + + + + PROCALCITONIN (11/07/2018 3:13 AM)Only the most recent of 2 results within the time period is included. + + + + + | Component | Value | Ref Range | Performed At | + + + + + | PROCALCITONIN | 0.19Comment: | <0.5 ng/mL | [facility] | | | INTERPRETIVE [...] performed | | | | | at [facility];[address] | | | | | [address] [address] | | | + + + + + + + + + + | Performing | Address | City/State/Zipcode | Phone Number | | Organization | | | | + + + + + | [facility] | [address] | [place] [address] | | + + + + + [...] | [facility] | | | performed at [facility], [address] | | LABORATORY | | | [facility], | | | | | [place] [address] | | | + + + + + + + | Specimen | + + | Blood | + + + + + + + | Performing | Address | City/State/Zipcode | Phone Number | | Organization | | | | + + + + + | [facility] | [address] | [place] [address] | [phone] | | LABORATORY | [address]vd[address] | | | + + + + + Phosphorus (11/07/2018 3:13 AM)Only the most recent of 4 results within the time period is included. + + + + + | Component | Value | Ref Range | Performed At | + + + + + | PHOSPHORUS | 3.6Comment: Testing | 2.3 - 4.8 mg/dL | [facility] | | | performed at [facility];[address] | | | | | [address];[place] | | | | | [address] | | | + + + + + + + | Specimen | + + | Blood | + + + + + + + | Performing | Address | City/State/Zipcode | Phone Number | | Organization | | | | + + + + + | [facility] | [address] | [place] [address] | | + + + + + Magnesium (11/07/2018 3:13 AM)Only the most recent of 5 results within the time period is included. + + + + + | Component | Value | Ref Range | Performed At | + + + + + | MAGNESIUM | 1.9Comment: Testing | 1.7 - 2.4 mg/dL | [facility] | | | performed at [facility];[address];[place], [place] | | | | | [address] | | | + + + + + + + | Specimen | + + | Blood | + + + + + + + | Performing | Address | City/State/Zipcode | Phone Number | | Organization | | | | + + + + + | [facility] | [address] | [place] [address] | | + + + + + Basic metabolic panel (11/07/2018 3:13 AM)Only the most recent of 4 results within the is included. + + + + + | Component | Value | Ref Range | Performed At | + + + + + | SODIUM | 142 | 135 - 145 mmol/L | [facility] | + + + + + | POTASSIUM | 4.0 | 3.5 - 4.9 mmol/L | [facility] | + + + + + [...] (L) | 8.5 - 10.5 mg/dL | [facility] | + + + + + | EGFR | >60Comment: GFR <60: | >60 mL/min/1.73m2 | [facility] | | | CHRONIC [...] the | | | | | MDRD ALMS traceable | | | | | equation.Testing | | | | | performed at [facility];[address] | | | | | [facility];[place], [place] | | | | | [address] | | | + + + + + + + | Specimen | + + | Blood | + + + + + + + | Performing | Address | City/State/Zipcode | Phone Number | | Organization | | | | + + + + + | [facility] | [address] | [place] [address] | | + + + + + [...] + + + + | Calculated R Bladen | -67 | degrees | [facility] | + + + + + | Calculated T Bladen | 87 | degrees | [facility] | + + + + + | Diagnosis | Atrial fibrillation with | | [facility] | | | moderate ventricular | [...] | + + + + + | [facility] | [address] | [place] [address] | | + + + + + [...] | + + + + + | [facility] | [address] | [place] [address] | | + + + + + Protime (11/05/2018 9:07 AM) + + + + + | Component | Value | Ref Range | Performed At | + + + + + | INR | 1.2Comment: REFERENCE | | [facility] | | | RANGE:0.9 [...] | | | | | performed at [facility] | | | | | [facility];[place], [place] | | | | | [address] | | | + + + + + + + | Specimen | + + | Blood | + + + + + + + | Performing | Address | City/State/Zipcode | Phone Number | | Organization | | | | + + + + + | [facility] | [address] | [place] [address] | | + + + + + Potassium (11/05/2018 9:07 AM) + + + + + | Component | Value | Ref Range | Performed At | + + + + + | POTASSIUM | 4.1Comment: Testing | 3.5 - 4.9 mmol/L | [facility] | | | performed at [facility];[address];[place] | | | | | [address] | | | + + + + + + + | Specimen | + + | Blood | + + + + + + + | Performing | Address | City/State/Zipcode | Phone Number | | Organization | | | | + + + + + | [facility] | [address] | [facility] [address] | | + + + + + [...] | | | | | performed at [facility], [address] | [address], | | | | | [place] [address] | | | + + + + + + + | Specimen | + + | Blood | + + + + + + + | Performing | Address | City/State/Zipcode | Phone Number | | Organization | | | | + + + + + | [facility] | [address] | [place] [address] | [phone] | | LABORATORY | [address]vd[address] | | | + + + + + CK MB (11/04/2018 2:08 PM)Only the most recent of 3 results within the time period is incl uded. + + + + + | Component | Value | Ref Range | Performed At | + + + + + | MMB | 2.6 | 0.5 - 3.6 ng/mL | [facility] | + + + + + | CK-MB Index | 6.8Comment: CK INDEX | | [facility] | | | INTERPRETATION: [...] | | | | | performed at [facility] | | | | | [address];[place], [place] | | | | | [address] | | | + + + + + + + | Specimen | + + | Blood | + + + + + + + | Performing | Address | City/State/Zipcode | Phone Number | | Organization | | | | + + + + + | [facility] | [address] | [place] [address] | | + + + + + Troponin I (11/04/2018 2:08 PM)Only the most recent of 3 results within the time period is included. + + + + + | Component | Value | Ref Range | Performed At | + + + + + | TROPONIN I | 0.113 (H)Comment: 0.04 | 0.00 - 0.04 ng/mL | [facility] | | | ng/mL [...] performed | | | | | at [facility];[address] [place] [address] | | | | | Blvd;[place] [address] | | | + + + + + + + | Specimen | + + | Blood | + + + + + + + | Performing | Address | City/State/Zipcode | Phone Number | | Organization | | | | + + + + + | [facility] | [address] | [place] [address] | | + + + + + CPK (11/04/2018 2:08 PM)Only the most recent of 3 results within the time period is includ ed. + + + + + | Component | Value | Ref Range | Performed At | + + + + + | CPK | 38 (L)Comment: Testing | 55 - 400 U/L | [facility] | | | performed at [facility];[address];[place] | | | | | [address] | | | + + + + + + + | Specimen | + + | Blood | + + + + + + + | Performing | Address | City/State/Zipcode | Phone Number | | Organization | | | | + + + + + | [facility] | [address] | [place] [address] | | + + + + + [...] | + + + + + | [facility] | [address] | [place] [address] | | + + + + + [...] | + + + + + | [facility] | [address] | [place] [address] | [phone] | | LABORATORY | [address]. | | | + + + + + | [facility] | [address] | [place] [address] | | + + + + + [...] | + + + + + | [facility] | [address] | [place] [address] | [phone] | | LABORATORY | Blvd. | | | + + + + + | [facility] | [address] | [place] [address] | | + + + + + Lipase (11/04/2018 1:12 AM) + + + + + | Component | Value | Ref Range | Performed At | + + + + + | LIPASE | 26Comment: NOTE NEW | 12 - 53 U/L | [facility] | | | REFERENCE RANGETesting | | | | | performed at [facility];[address] | | | | | [address];[place] | | | | | [address] | | | + + + + + + + | Specimen | + + | Blood | + + + + + + + | Performing | Address | City/State/Zipcode | Phone Number | | Organization | | | | + + + + + | [facility] | [address] | [place] [address] | | + + + + + Lactic acid (11/04/2018 1:12 AM) + + + + + | Component | Value | Ref Range | Performed At | + + + + + | LACTIC ACID | 1.1Comment: Testing | 0.4 - 2.0 mmol/L | [facility] | | | performed at [facility] | | | | | [address];[place] | | | | | [address] | | | + + + + + + + | Specimen | + + | Blood | + + + + + + + | Performing | Address | City/State/Zipcode | Phone Number | | Organization | | | | + + + + + | [facility] | [address] | [place] [address] | | + + + + + Amylase (11/04/2018 1:12 AM) + + + + + | Component | Value | Ref Range | Performed At | + + + + + | AMYLASE | 38Comment: Testing | 25 - 115 U/L | [facility] | | | performed at [facility];[address];[place] | | | | | [address] | | | + + + + + + + | Specimen | + + | Blood | + + + + + + + | Performing | Address | City/State/Zipcode | Phone Number | | Organization | | | | + + + + + | [facility] | [address] | [place] [address] | | + + + + + MRSA by PCR (11/04/2018 12:13 AM) + + + + + | Component | Value | Ref Range | Performed At | + + + + + | SOURCE | NARES(NOSE) | | [facility] | + + + + + | MRSA PCR | NEGATIVEComment: Testing | NEGATIVE | [facility] | | | performed at [facility];[address] | | | | | [address];[place] | | | | | [address] | | | + + + + + + + | Specimen | + + | Nasopharyngeal - | | Nasopharyngeal | | Culture | + + + + + + + | Performing | Address | City/State/Zipcode | Phone Number | | Organization | | | | + + + + + | [facility] | [address] | [place] [address] | | + + + + + [...] COMMENTS | Oliver Test not | | [facility] | | | indicatedComment: Site = | | | | | left radialTesting | | | | | performed at [facility];[address];[place] | | | | | [address] | | | + + + + + + + + + + | Performing | Address | City/State/Zipcode | Phone Number | | Organization | | | | + + + + + | [facility] | [address] | [place] [address] | | + + + + + POCT glucose (11/03/2018 11:11 PM) + + + + + | Component | Value | Ref Range | Performed At | + + + + + | GLUCOSE,POC SCREEN | 174 (H)Comment: Testing | 65 - 99 mg/dL | [facility] | | | performed at [facility];[address] | | | | | [address];[place] | | | | | [address] | | | + + + + + + + + + + | Performing | Address | City/State/Zipcode | Phone Number | | Organization | | | | + + + + + | [facility] | [address] | [place] [address] | | + + + + + [...] +------+-------+ + | MEDICAID | E[place]ER | [id number] | | | [address] | | | N | | | | [place], [place] | | | [place] | | | | [address] | | | [employer]ER | | | | | + +--------+ [...] | | vernell/Shiva | | 1965 | [phone] | [place] | | | [place]istina | | | [address]: | [address] | | | | | | | | | | | | | [phone] | | | | | | | [address] | | + +--------+ +--------+ + +
--- OUTSIDE RECORDS SUMMARY | ~2018-11-24 | XMS | Encounter Summary ---
Demographics + + + | Address | [address] | | | [place] [address] | + + + | Home Phone | | + + + | Preferred Language | Unknown | + + + | Marital Status | Unknown | + + + | Denominational Affiliation | Unknown | + + + | Race | Unknown | + + + | Ethnic Group | Unknown | + + + Author + + + | Author | [facility] | + + + | Organization | [facility] | + + + | Address | [...] Team Providers + +------+ + | Care Broadcast Director Operations Name | Role | Phone | + [...] | Authorized | | | Diagnoses | [facility], | [facility], | | | | | Alcohol | MD Gabe | [address] | | | | | abuse | [address] | | | | | Atrial | Magdalena Love | [place] | | | | | fibrillation | Fawad F | [place], [place] | | | | | with RVR | [place], [place] | [address] | | | | | ([facility]) | [address] | Phone: | | | | | Benign | Phone: | [phone] | | | | | essential | [phone] | Fax: | | | | | hypertension | Fax: | [phone] | | | | | Acute | [phone] | | | | | | combined | | | | | | | systolic and | | | | | | | diastolic | | | | | | | congestive | | | | | | | heart | | | | | | | failure | | | | | | | ([facility]) | | | + +--------+ + + [...] Sweet | | | | | | [place], [place] | [place], [place] | | | | | | [address] | [address] Phone: | | | | | | Phone: | [phone] | | | | | | [phone] | Fax: | | | | | | Fax: | [phone] | | | | | | [phone] | | + + + + + + + Encounter Details +--------+---------+ + + + | Date | Type | Department | Care Team | Description | +--------+---------+ + + + | 03/13/ | Office | [facility] | Gabe Persaud, | Alcohol abuse | | 2019 | Visit | Cardiology [place] | MD Carla Nichols | (Primary Dx); Atrial | | | | [address] | [address] [place], | fibrillation with | | | | [address] | [place] [address] | RVR (HCC); Essential | | | | [place] [address] | [phone] | hypertension, | | | | [phone] | | benign; Acute | | | [...] the next 48 hours please come to [facility]. in this encounter Progress Notes Gabe Persaud [...] since hospitaliza tion. Was hospitalized initially and [facility] in November 2018 secondary to atrial fibrilla tion and rapid ventricular response. Was treated with diltiazem IV, that caused hypotension and cardiogenic shock then transferr ed to [facility] for cardiac evaluation despite the fact that [facility] have ca rdiology service. Patient was admitted to intensive care unit. Was treated with medical management. Of note on his admission to [facility] he was tested positive for cannabinoids and [...] congestive heart failure, currently volume ov erload [facility] class IV, stage C. 2. Newly diagnosed [...] if he feels he will proceed for [facility] in 48 hours. Unfortunately patient was discharged before optimization of medical therapy. Not even on an ticoagulation. We will increase losartan to 50 mg po q day, increase carvedilol to 25 mg bid. Start digoxin 0.125 mg daily. Start torsemide 20 mg po q day. Will start warfarin and refer for warfarin clinic in [facility]. Again discussed with the patient regarding alcohol [...] | | | | | | [place] [address] | | | | | | [phone] | | | | | | | [...] | | | | | with RVR ([facility]) | | | | | Essential | [...]
--- OUTSIDE RECORDS SUMMARY | ~2018-11-24 | XMS | Encounter Summary ---
Demographics + + + | Address | [address] | | | [place] [address] | + + + | Home Phone | | + + + | Preferred Language | Unknown | + + + | Marital Status | Unknown | + + + | Amish Affiliation | Unknown | + + + | Race | Unknown | + + + | Ethnic Group | Unknown | + + + Author + + + | Author | [facility] | + + + | Organization | [facility] | + + + | Address | [...] Team Providers + +------+ + | Care Bus Monitor Name | Role | Phone | + [...] | | | | systolic and | [address] | [place], [place] | | | | | diastolic | Phone: | [address] | | | | | congestive | [phone] | Phone: | | | | | heart | Fax: | [phone] | | | | | failure | [phone] | Fax: | | | | | (HCC) | | [phone] | | | | | Procedures | [...] Sweet | | | | | | [place], [place] | [place], [place] | | | | | | [address] | [address] Phone: | | | | | | Phone: | [phone] | | | | | | [phone] | Fax: | | | | | | Fax: | [phone] | | | | | | [phone] | | + + + + + + + Encounter Details +--------+---------+ + + + | Date | Type | Department | Care Team | Description | +--------+---------+ + + + | 11/20/ | Office | [facility] | Gabe Persaud, | Essential | | 2019 | Visit | Cardiology [place] | [address] | hypertension, benign | | | | [address] | [address], | (Primary Dx); | | | | [address] | [place] [address] | Atrial fibrillation | | | | [place] [address] | [phone] | with RVR ([facility]); | | | | [phone] | | Acute combined | | | | | | systolic and | | | | | | diastolic congestive | | | | | | heart failure | | | | | | ([facility]); Hiccups | +--------+---------+ + + + Social [...] ve any blockages. Procedure is done in [facility]. You need a ride to and from [...] doses, added digoxin. Was hospitalized initially and [facility] in November 2018 secondary to atrial fibrilla tion and rapid ventricular response. Was treated with diltiazem IV, that caused hypotension and cardiogenic shock then transferr ed to [facility] for cardiac evaluation despite the fact that [facility] have ca rdiology service. Patient was admitted to intensive care unit. Was treated with medical management. Of note on his admission to [facility] he was tested positive for [...] will be referred for warfarin clinic in [place]. I discussed with the patient anticoagulation direct [...] [place], | | | | | | [place] [address] | | | | | | [phone] | | | | | | | [...] with | | | | | RVR ([facility]) Acute | | | | | combined systolic | | | | | and diastolic | | | | | congestive heart | | | | | failure ([facility]) | | + +--------+ + + + +--------+ + + | Name | Priori | Associated Diagnoses | Order Schedule | | | ty | | | + +--------+ + + | AMB Referral Extension for | Routin | Atrial | Ordered: 11/20/2018 | | Anticoag | e | fibrillation with | | | | | RVR ([facility]) Acute | | | | | combined systolic | | | | | and diastolic | | | | | congestive heart | | | | | failure ([facility]) | | + +--------+ + + [...]
--- OUTSIDE RECORDS SUMMARY | ~2018-11-24 | XMS | Encounter Summary ---
Demographics + + + | Address | [address] | | | [place] [address] | + + + | Home Phone | | + + + | Preferred Language | Unknown | + + + | Marital Status | Unknown | + + + | Mu-Ism Affiliation | Unknown | + + + [...] [place] | | | | | [address] | | + + + + + | Message,Detailed | ECON | Unknown | | + + + + + Care Team Providers + +------+ + | Care Reeling Machine Operator Name | Role | Phone | [...] + + | 11/02/ | Hospital [facility] | Arlin Chou | Atrial fibrillation, | | 2019 - | Encounter | [facility] ICU [address] | MD Anabel [address] | unspecified type | | | | [place], | [address] [place] | ([facility]); Atrial | | 11/03/ | | [place] [address] | [place] [address] | fibrillation with | | 2019 | | [phone] | [phone] | RVR ([facility]); | | | | | | Panlobular emphysema | | | | | Natalie Reyes MD | ([facility]); Troponin | | | | | [address] | level elevated; | | | | | [place] | Gastroesophageal | | | | | [address] | reflux disease, | | | | [...] may be different from the or iginal. [place] HOSPITALIST DISCHARGE SUMMARY Pt. Name/Age/: Taurus [...] with normal EF. Patient was seen by [facility] Cardiology in March 2018 and had nucl [...] Verma graciously accepting patient for transfer to [facility] for higher LOC. DISCHARGE MEDICATIONS: N/A as [...] AND DISCHARGE INSTRUCTIONS: Patient is transferring to [facility] for higher level of care, 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 Electronically signed by: Natalie Reyes MD, 11/03/2018 18:47 [facility] in this encounter Medications at Time of [...] may be different from the or iginal. [facility] [place] HOSPITALIST PROGRESS NOTE Patient: Taurus Domínguez : 1965: Age: 53 y.o. MedRec: [id number] Admission date: 11/02/2018 Hospital day # : [...] 110s-120s. TSH within normal limits. Echo pending. [id number] sc ore 3, warranting anticoag (prior stroke, [...] showed normal EF. Patient was seen by [facility] Cardiology in March 2018; patient reported drinking a fifth of whiskey daily at that time. [place] d [place] scan in March 2018; cannot see the results in our EMR but patient thinks study was negat asad. Add CIND protocol for alcohol w/d. Chest x-ray appears [...] Procedure Component Value Units Date/Time Culture, MRSA [[id number]] Collected: 11/02/18 1800 Order Status: Sent Lab [...] rate L/min Natalie Reyes MD 11/03/2018 8:30 [facility] in this encounter Plan of Treatment [...] the | | | | | RVR ([facility]) | results section. | + +--------+ [...] | | | | BASILIA SIMONS, SUSANNAH ([id number]) | | | | | on 11/04/2018 [...] + | [facility] | [address] | [place] | [phone] | | [facility] | | [address] | | | - LABORATORY | | | | + + + + + Extra Plain Red Top Tube (11/03/2018 1650) + +-------+ + + | Component | Value | Ref Range | Performed At | + +-------+ + + | Extra Plain Red Top | Done | | [facility] | | Tube | | | [facility] | | | | | [...] [address] | [place] | [phone] | | [facility] | | [address] | | | - LABORATORY | | | | + + + + + Extra Green Top Tube (11/03/2018 4863) + +-------+ + + | Component | Value | Ref Range | Performed At | + +-------+ + + | Extra Green Top Tube | Done | | [facility] | | | | | [facility] | | | | | [...] [address] | [place] | [phone] | | [facility] | | [address] | | | - LABORATORY | | | | + + + + + Extra Gold Top Tube (11/03/2018 1650) + +-------+ + + | Component | Value | Ref Range | Performed At | + +-------+ + + | Extra Gold Top Tube | Done | | [facility] | | | | | [facility] | | | | | [place] - | | | | | LABORATORY | + +-------+ + + + + | Specimen | + + | Blood | + + + + + + + | Performing | Address | City/State/Zipcode | Phone Number | | Organization | | | | + + + + + | [facility] | [address] | [place] | [phone] | | [facility] | | [address] | | | - LABORATORY | | | | + + + + + Culture, Blood (11/03/20182) + + + + + | Component | Value | Ref Range | Performed At | + + + + + | Culture | No growth after 5 days | | [facility] | | | incubation. | | [facility] | | | | | [...] + | [facility] | [address] | [place] | [phone] | | [facility] | | [address] | | | - LABORATORY | | | | + + + + + Basic Metabolic Panel (11/03/2018 1630) + +---------+ + + | Component | Value | Ref Range | Performed At | + +---------+ + + | Na | 131 (L) | 136 - 145 mmol/L | [facility] | | | | | [facility] | | | | | [...] [facility] | | | | | [facility] | | | | C[facility] - | | | | | LABORATORY | + +---------+ + + | eGFR if not | 59 (L) | >=60 mL/min/1.73m2 | [facility] | | [place] | | | [facility] | | [...] | BUN/Creatinine Ratio | 14.3 | | [facility] | | | | | [facility] | | | | | [...] [address] | [place] | [phone] | | [facility] | | [address] | | | - LABORATORY | | | | + + + + + CBC with Differential (11/03/2018 1630) + + + + + | Component | Value | Ref Range | Performed At | + + + + + | WBC | 13.2 (H) | 4.0 - 11.0 K/uL | [facility] | | | | [facility] | | | | CENTER - | | | | | LABORATORY | + + + + + | RBC | 4.80 | 4.30 - 5.70 M/uL | [facility] | | | | | CY [...] 0.00 | 0.00 - 0.01 K/uL | [facility] | | | | | [facility] | | | | | [...] [address] | [place] | [phone] | | [facility] | | [address] | | | - LABORATORY | | | | + + + + + Lactic Acid (11/03/2018 1630) + + + + + | Component | Value | Ref Range | Performed At | + + + + + | Lactate | 4.9 ()Comment: | 0.5 - 2.2 mmol/L | [facility] | | | Critical Result called | | [facility] | | | to and read back by troy Arauz | | | janessa GOMEZ on 11/03/2018 [...] + | [facility] | [address] | [place] | [phone] | | [facility] | | [address] | | | - LABORATORY | | | | + + + + + Culture, Blood (11/03/2018 1630) + + + + + | Component | Value | Ref Range | Performed At | + + + + + | Culture | No growth after 5 days | | [facility] | | | incubation. | | [facility] | | | | | [...] [address] | [place] | [phone] | | [facility] | | [address] | | | - LABORATORY | | [...] ST. | [address] | [place] | [phone] | | [facility] | | [address] | | | - LABORATORY | | [...] | | | | BASILIA SIMONS, SUSANNAH ([id number]) | | | | | on 11/03/2018 [...] [address] | [place] | [phone] | | [facility] | | [address] | | | - LABORATORY | | | | + + + + + TSH (11/03/2018608) + +-------+ + + | Component | Value | Ref Range | Performed At | + +-------+ + + | TSH | 2.12 | 0.55 - 4.78 uIU/mL | [facility] | | | | | [facility] | | | | | [...] + | [facility] | [address] | [place] | [phone] | | [facility] | | [address] | | | - LABORATORY | | | | + + + + + B Type Natriuretic Peptide (11/03/2018608) + +---------+ + + | Component | Value | Ref Range | Performed At | + +---------+ + + | BNP | 557 (H) | <100 pg/mL | [facility] | | | | | [facility] | | | | | [...] + | [facility] | [address] | [place] | [phone] | | [facility] | | [address] | | | - LABORATORY | | | | + + + + + Troponin I (11/03/2018608) + + + + + | Component | Value | Ref Range | Performed At | + + + + + | Troponin I | 0.25 (H) | <0.06 ng/mL | [facility] | | | | | [facility] | | | | | [...] + | [facility] | [address] | [place] | [phone] | | [facility] | | [address] | | | - LABORATORY | | | | + + + + + Magnesium (11/03/2018608) + +-------+ + + | Component | Value | Ref Range | Performed At | + +-------+ + + | Magnesium | 1.8 | 1.8 - 2.5 mg/dL | [facility] | | | | | [facility] | | | | | [...] [address] | [place] | [phone] | | [facility] | | [address] | | | - LABORATORY | | [...] >=60 mL/min/1.73m2 | [facility] | | [place] | | | [facility] | | [...] + | [facility] | [address] | [place] | [phone] | | [facility] | | [address] | | | - LABORATORY | | | | + + + + + CBC with Differential (11/03/2018608) + + + + + | Component | Value | Ref Range | Performed At | + + + + + | WBC | 10.4 | 4.0 - 11.0 K/uL | [facility] | | | | | [facility] | | | | | [...] + | [facility] | [address] | [place] | [phone] | | [facility] | | [address] | | | - LABORATORY | | | | + + + + + Troponin I (11/03/201826) + + + + + | Component | Value | Ref Range | Performed At | + + + + + | Troponin I | 0.31 (H) | <0.06 ng/mL | [facility] | | | | | [facility] | | | | | [...] [address] | [place] | [phone] | | [facility] | | [address] | | | - LABORATORY | | [...] ST. | | Urine | | | [facility] | | | | | CENTER [...] + | [facility] | [address] | [place] | [phone] | | [facility] | | [address] | | | - LABORATORY | | [...] + | [facility] | [address] | [place] | [phone] | | [facility] | | [address] | | | - LABORATORY | | | | + + + + + Culture, MRSA (11/02/2018 1800) + + + + + | Component | Value | Ref Range | Performed At | + + + + + | Culture | Negative for MRSA by | | [facility] | | | chromogenic agar method | | [facility] | | | | | [...] [address] | [place] | [phone] | | [facility] | | [address] | | | - LABORATORY | | [...] | | | | | | | [place] 11/03/18 at 1100, For 1 dose, | [...] PST | | | | | ONCE, [place] 11/03/18 at 0800, For 1 | | [...] | | | | | | Starting [place] 11/03/18 at 1830, | | | | [...]
--- OUTSIDE RECORDS SUMMARY | ~2018-11-24 | XMS | Clinical Summary ---
Demographics + + + | Address | [address] | | | [place] [address] | + + + | Home Phone [...] | [place] | | | | | [address] | | + + + + + | Message,Detailed | ECON | Unknown | | + + + + + Care Team Providers + +------+ + | Care Spring Bender Name | Role | Phone | + [...] + + | Atrial fibrillation with RVR ([facility]) | 11/03/2018 | + + + [...] | Natalie Reyes MD | ([facility]); Atrial | | 11/03/ | | | | fibrillation with | | 2018 | | | | RVR ([facility]); | | | | | | Panlobular emphysema | | | | | | ([facility]); Troponin | | | | [...] | | from the | | | original.IN | | | [facility] | | [...] Number: | | | | | | [id number] | | | Date of | | [...] | | transfer | | | to [facility] | | | for higher | | [...] | | | 18:47 | | | [facility] | | | [facility] | | | Medical | | | [...] | | | | RVR ([facility]) | results section. | + [...] | | | | SUSANNAH CUI MD ([id number]) | | | | | on 11/04/2018 [...] tube with tip 4.7 cm above the asnjay. | | | | Enteric tube and [...] [facility] | | | | | [facility] | | | | [...] [address] | [place] | [phone] | | [facility] | | [address] | | | - LABORATORY | | [...] + | [facility] | [address] | [place], [place] | [phone] | | [facility] | | [address] | | | - LABORATORY | | | | + + + + + Extra Green Top Tube (11/03/2018 079) + +-------+ + + | Component | [...] + | [facility] | [address] | [place] | [phone] | | [facility] | | [address] | | | - LABORATORY | | | | + + + + + Extra Gold Top Tube (11/03/2018 1650) + +-------+ + + | Component | Value | Ref Range | Performed At | + +-------+ + + | Extra Gold Top Tube | Done | | [facility] | | | | | ST. [...] ST. | [address] | [place], [place] | [phone] | | [facility] | | [address] | | | - LABORATORY | | [...] + | [facility] | [address] | [place] | [phone] | | [facility] | | [address] | | | - LABORATORY | | [...] (H) | 4.0 - 11.0 K/uL | [facility] | | | | | [...] ST. | [address] | [place], [place] | [phone] | | [facility] | | [address] | | | - LABORATORY | | [...] + | [facility] | [address] | [place] | [phone] | | [facility] | | [address] | | | - LABORATORY | | [...] >=60 mL/min/1.73m2 | [facility] | | [place] | | | [facility] | | [...] [address] | [place] | [phone] | | [facility] | | [address] | | | - LABORATORY | | [...] | | | Oral Anticoagulation | | [facility] | | | Range: 2.0 - [...] [address] | [place] | [phone] | | [facility] | | [address] | | | - LABORATORY | | [...] | + + + + + | [facility] | [address] | [place], [place] | [phone] | | [facility] | | [address] | | | - LABORATORY | | [...] + | [facility] | [address] | [place] | [phone] | | [facility] | | [address] | | | - LABORATORY | | [...] [address] | [place] | [phone] | | [facility] | | [address] | | | - LABORATORY | | [...] + | [facility] | [address] | [place] | [phone] | | [facility] | | [address] | | | - LABORATORY | | [...] [address] | [place] | [phone] | | [facility] | | [address] | | | - LABORATORY | | [...] >=60 mL/min/1.73m2 | [facility] | | [place] | | | [facility] | | [...] ST. | | Ratio | | | [facility] [...] [address] | [place] | [phone] | | [facility] | | [address] | | | - LABORATORY | | [...] ST. | [address] | [place], [place] | [phone] | | [facility] | | [address] | | | - LABORATORY | | [...] [address] | [place] | [phone] | | [facility] | | [address] | | | - LABORATORY | | [...] | [employer] | MODA | [id number] | Medica | +- | | | MEDICAID HMO | HEALTH | | id | 9821 | | | | MDCD | | | | | | | HMO [place] | | | | | + +--------+ +--------+ +---------+ | [employer] | [employer] | [id number] | Medica | +- | | | [...] | + +--------+ +--------+ + + | LAINE DOMÍNGUEZ | Person | Self | [birth year] | Work: | [address] | | | al/[employer] | | 1964 | [phone] | [place] | | | [employer] | | | [address]: | [address] | | | | | | | | | | | | | [phone] | | | | | | | [phone] | | + +--------+ +--------+ + + | ALINE DOMÍNGUEZ | Person | Self | [birth year] | Home: | [address] | | | al/Fam | | 1965 | [phone] | [place] | | | [place] | | | [address] | [phone] | + +--------+ +--------+ + +
--- OUTSIDE RECORDS SUMMARY | 2018-11-24 17:36 | XMS ---
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 [place] VISIT COUNT (12 MO.) 2 [facility] TOTAL 2 NOTE: Visits indicate total known visits. ED/UCC VISIT TRACKING (12 MO.) 11/24/2018 17:34 [facility] TYPE: Emergency COMPLAINT: - CHEST PAIN 11/02/2018 07:58 [facility] TYPE: Emergency COMPLAINT: - ABD PAIN DIAGNOSES: - Essential (primary) hypertension - Epigastric pain - Personal history of transient ischemic attack (TIA), and cerebral infarction without residual deficits - Unspecified atrial fibrillation - Other senior living (current) drug therapy INPATIENT VISIT TRACKING (12 MO.) 11/03/2018 23:12 [facility] [place] TYPE: General Medicine DIAGNOSES: - Cardiogenic shock - [facility] DIAGNOSES: - Gastro-esophageal reflux disease without esophagitis - Panlobular emphysema - Unspecified atrial fibrillation - Afib - Abnormal levels of other serum enzymes [email or web address]
[2018-11-24] MEDS ORDERED: ALDACTONE25 MG PO (17:51)
[2018-11-24] MEDS ORDERED: COUMADIN5 MG PO (17:51)
[2018-11-24] MEDS ORDERED: OMEPRAZOLE20 MG PO (17:52)
[2018-11-24] MEDS ORDERED: CARVEDILOL12.5 MG PO (17:52)
[2018-11-24] MEDS ORDERED: CARVEDILOL25 MG PO (17:53)
[2018-11-24] MEDS ORDERED: LOSARTAN POTASS25 MG PO (17:54)
[2018-11-24] MEDS ORDERED: DIGOXIN125 MCG PO (17:55)
[2018-11-24] MEDS ORDERED: ASPIR 8181 MG PO (17:56)
--- NOTE | 2018-11-25 23:22 | EKG ---
[facility] [address] [facility] [place] [address] Signed Atrial fibrillation Left axis deviation Cannot rule out Anterior infarct (cited on or before 07-JUN-2017) Abnormal ECG When compared with ECG of 02-NOV-2018 10:43, ST now depressed in Inferior leads T wave inversion less evident in Anterior leads Confirmed by KRISHNA SALOMON MD ([id number]) on 11/25/2018 11:22:11 PM Electronically Signed By: KRISHNA SALOMON MD 11/25/18 2322 PATIENT NAME: ALINE DUKE Electrocardiogram DATE OF : 61 PHYSICIAN: KRISHNA SALOMON MD REPORT #: [id number] REPORT IS CONFIDENTIAL AND NOT TO BE RELEASED WITHOUT AUTHORIZATION
== END 2018-11-24 20:09 | disposition home or self-care (01) ==
LOC: ED 17:34
DX: I48.91 Unspecified atrial fibrillation (principal); I10 Essential (primary) hypertension; Z86.73 Personal history of transient ischemic attack (TIA), and cerebral infarction without residual deficits; Z79.01 Long term (current) use of anticoagulants; Z79.82 Long term (current) use of aspirin; Z79.899 Other long term (current) drug therapy
CPT/HCPCS: 80053; 84484; 85025; 85610; 93005; 93010; 99285-25

== ENCOUNTER 2018-12-24 08:13 | Emergency (ER) | payer OTHER ==
[~2018-12-24] VITALS: Ht 175.3 cm; Wt 77.1 kg
--- OUTSIDE RECORDS SUMMARY | ~2018-12-24 | XMS | Encounter Summary ---
Demographics + + + | Address | [address] | | | [place] [address] | + + + | Home Phone | | + + + | Preferred Language | Unknown | + + + | Marital Status | Unknown | + + + | Mandaen Affiliation | Unknown | + + + | Race | Unknown | + + + | Ethnic Group | Unknown | + + + Author + + + | Author | [facility] | | | and [place] | + + + | Organization | [facility] | | | and [place] | + + + | Address | Unknown | + + + | Phone | Unavailable | + + + Support + + + + + | Name | Relationship | Address | Phone | + + + + + | Taurus Salinas | ECON | [place] | | | | | [phone] | | + + + + + | Message,Detailed | ECON | Unknown | | + + + + + Care Team Providers + +------+ + | Care Signals Intelligence Analysis Manager Name | Role | Phone | + +------+ + | Kenny Hernandez DO | PCP | Unavailable | + +------+ + Reason for Visit Auth/Cert +--------+--------+ + + + + | Status | Reason | Specialty | Diagnoses / | Referred By | Referred To | | | | | Procedures | Contact | Contact | +--------+--------+ + + + + | | | | Diagnoses | | | | | | | Afib | | | +--------+--------+ + + + + Encounter Details +--------+ + + + + | Date | Type | Department | Care Team | Description | +--------+ + + + + | 11/02/ | Hospital | [facility] | Arlin Chou | Atrial fibrillation, | | 2019 - | Encounter | [facility] ICU [address] | MD [place] [address] | unspecified type | | | | [place], | [address] [place] | ([facility]); Atrial | | 11/03/ | | [place] [address] | [place] [address] | fibrillation with | | 2019 | | [phone] | [phone] | RVR ([facility]); | | | | | | Panlobular emphysema | | | | | Natalie Reyes MD | ([facility]); Troponin | | | | | [address] | level elevated; | | | | | [place] | Gastroesophageal | | | | | [address] | reflux disease, | | | | | | esophagitis presence | | | | | | not specified | +--------+ + + + + Social History + + + +--------+ + | Tobacco Use | Types | Packs/Day | Years | Date | | | | | Used | | + + + +--------+ + | Former Smoker | Cigarettes | 1 | 33 | 09/03/1978 - | | | | | | 10/04/2010 | + + + +--------+ + + +---+---+---+ | Smokeless Tobacco: | | | | | Former User | | | | + +---+---+---+ + + +---------+ + | Alcohol Use | Drinks/We | oz/Week | Comments | | | ek | | | + + +---------+ + | Yes | 35-70 | 21.0 - | 5-10 drinks daily, can drink a 5th a day | | | Cans of | 42.0 | easily | | | beer 0 | | | | | Standard | | | | | drinks or | | | | | | | | | | equivalen | | | | | t | | | + + +---------+ + + + + | Sex Assigned at | Date Recorded | | | | + + + | Not on file | | + + + + + + + | Job Start Date | Occupation | Industry | + + + + | Not on file | Not on file | Not on file | + + + + + + + + | Travel History | Travel Start | Travel End | + + + + + + | No recent travel history available. | + + documented as of this encounter Last Filed Vital Signs + + + + | Vital Sign | Reading | Time Taken | + + + + | Blood Pressure | 117/103 | 11/03/20182104 PST | + + + + | Pulse | 34 | 11/03/20182109 PST | + + + + | Temperature | 36.7 C (98.1 F) | 11/03/20182109 PST | + + + + | Respiratory Rate | 20 | 11/03/20182104 PST | + + + + | Oxygen Saturation | 96% | 11/03/20182109 PST | + + + + | Inhaled Oxygen | - | - | | Concentration | | | + + + + | Weight | 90.7 kg (199 lb 15.3 | 11/03/2018730 PST | | | oz) | | + + + + | Height | 175.3 cm (5' 9") | 11/03/2018730 PST | + + + + | Body Mass Index | 29.53 | 11/03/2018730 PST | + + + + documented in this encounter Functional Status + + + + | Functional Status | Response | Date of Assessment | + + + + | Are you deaf or do you have serious | No | 11/02/2018 | | difficulty hearing? | | | + + + + | Are you blind or do you have serious | No | 11/02/2018 | | difficulty seeing, even when wearing | | | | glasses? | | | + + + + | Do you have serious difficulty walking or | No | 11/02/2018 | | climbing stairs? (5 years old or older) | | | + + + + | Do you have difficulty dressing or bathing? | No | 11/02/2018 | | (5 years old or older) | | | + + + + | Because of a physical, mental, or emotional | Yes - no longer | 11/02/2018 | | condition, do you have difficulty doing | drives | | | errands alone such as visiting a doctor's | | | | office or shopping? [15 years old or | | | | older)] | | | + + + + + + + + | Cognitive Status | Response | Date of Assessment | + + + + | Because of a physical, mental, or emotional | No | 11/02/2018 | | condition, do you have serious difficulty | | | | concentrating, remembering, or making | | | | decisions? (5 years old or older) | | | + + + + documented as of this encounter Discharge Summaries Natalie Reyes MD - 11/03/2018 1847 PST [place], [place] HOSPITALIST DISCHARGE SUMMARY Pt. Name/Age/: Taurus Domínguez 53 y.o. 1965 Date of Admission: 11/02/2018 Date of Discharge: 11/03/2018 Admitting Physician: Arlin Chou MD Primary Care Provider: Kenny Hernandez DO Discharging Physician: Natalie Reyes MD DISCHARGE DIAGNOSES: Active Hospital Problems Diagnosis Atrial fibrillation with RVR Troponin level elevated Cardiogenic shock Cerebrovascular accident (CVA) due to thrombosis of cerebral artery Panlobular emphysema Resolved Hospital Problems Diagnosis No resolved problems to display. HOSPITAL COURSE: Please refer to the H&P for full details and the most recent rounding rounding (progress) n ote. 53 yo M with history of COPD, CVA, hypertension who presented to OSH with epigastric pain r adiating to the chest found to have new a fib with RVR and mild troponin elevation. #Shock, suspected cardiogenic Patient developed worsening shock 3/3 requiring norepinephrine and dopamine for hemodynamic support. Decompensated rather rapidly this afternoon, with notable bradycardia down to the high 30s/low 40s and concomitant hypotension off rate/rhythm controlling medications. Intuba rao for airway protection. Was briefly transcutaneously paced but this was discontinued and patient was noted to be back in a fib with rates 90s-100s. Did add low dose epi per Dr Verma 's request prior to transfer. Suspect patient may have developed worsening cardiogenic shock in the setting of receiving diltiazem, in the setting of severe cardiomyopathy. Considered sepsis and did start empiric ceftriaxone with chest x-ray showing basilar reticular opacity and WBC mildly elevated but t his is most likely pulmonary edema. Patient was afebrile with no cough or fever prior to his decompensation. #Biventricular congestive heart failure Echo here showed EF 20% with evidence also of reduced right heart systolic function. Prior echo in 2015 with normal EF. Patient was seen by [facility] in March 2018 and had nucl ear medicine scan at that time but I cannot see the results in our EMR. Patient thinks the s tudy was negative. D/w Cardiology here. No e/o ischemia on ECGs that were obtained 11/03. Kerry ent does have a history of meth use and heavy daily alcohol use. UDS here positive for THC a nd opiates. #A fib with RVR New diagnosis. Patient was started on diltiazem at OSH which was discontinued after echo re sulted this morning showing severely decreased LVEF. Switched to amio with initial improveme nt in rate but patient developed worsening shock prompting discontinuation of amiodarone and initiation of pressors. Remains in a fib currently. TSH within normal limits. #Respiratory failure 2/2 worsening shock as above. On mechanical ventilation. Chest XR shows ETT above the level of the sanjay and OG tube in place. #Hepatic dysfunction Patient has a longstanding history of heavy alcohol use. INR 1.5 here. LFTs unremarkable. U S abdomen ordered for further evaluation but not obtained by time of transfer. Patient had b een referred to outpatient GI in the past but did not follow up with bloodwork or US at that time. #SWEETIE Likely 2/2 shock. #COPD Patient does not appear to be in COPD exacerbation, no significant wheezing noted on exam. Suspect respiratory insufficiency is 2/2 cardiac status. #Heavy alcohol use Patient reports daily use. When seen by Cardiology in March, was drinking a fifth of whiskey daily. Maintained on CIWA here. Patient has RUE PICC line in place Appreciate Dr Verma graciously accepting patient for transfer to [facility] for higher LOC. DISCHARGE MEDICATIONS: N/A as patient is transferring to OSH Discharge Medications Unchanged Medications Details albuterol-ipratropium 2.5-0.5 mg/3 mL Soln Take 3 mLs by nebulization. amLODIPine 5 mg tablet Take 5 mg by mouth Daily. aka: NORVASC aspirin 81 mg EC tablet Take 81 mg by mouth Daily. carvedilol 12.5 mg tablet Take 12.5 mg by mouth. aka: COREG chlorproMAZINE 25 mg tablet Take 1 tablet by mouth 3 times daily. aka: THORAZINE hydrALAZINE 25 mg tablet Take 25 mg by mouth. aka: APRESOLINE losartan 50 mg tablet Take 50 mg by mouth Daily. aka: CLINTON Most recent weight: Input and output for last 24hrs: Wt Readings from Last 1 Encounters: 11/03/18 90.7 kg (199 lb 15.3 oz) I/O last 24 Hours: In: 147 [I.V.:147] Out: 160 [Urine:160] Vitals Ranges: Temp: [36.2 C (97.2 F)-36.6 C (97.9 F)] 36.6 C (97.9 F) Pulse: [33-113] 105 Resp: [11-39] 20 BP: (72-150)/(53-114) 110/83 Vitals: Temp: 36.6 C (97.9 F) BP: 110/83 Pulse: 105 Resp: 20 SpO2: 97 % SpO2 97 % on mechanical ventilation at flow rate 80L/min PHYSICAL EXAM: Patient seen and examined by me on 11/03/18 Gen: clammy, ill appearing, on mechanical ventilation CV: IIRR Pulm: diminished breath sounds at RLB Ext: no edema, distal pulses faint but intact PROCEDURES AND CONSULTS: Procedures: intubation Consults: none PENDING RESULTS: Blood cultures 11/03 DISPOSITION AND DISCHARGE INSTRUCTIONS: Patient is transferring to [facility] for higher level of care, 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 Electronically signed by: Natalie Reyes MD, 11/03/2018 18:47 [facility] documented in this encount er Medications at Time of Discharge + + + +---------+ + + | Medication | Sig | Dispensed | Refills | Start | End Date | | | | | | Date | | + + + +---------+ + + | | Take 3 mLs by | | 0 | | | | albuterol-ipratropiu | nebulization. | | | | | | m (DUONEB) 2.5-0.5 | | | | | | | mg/3 mL SOLN | | | | | | + + + +---------+ + + | amLODIPine | Take 5 mg by mouth | | 0 | | | | (NORVASC) 5 mg | Daily. | | | | | | tablet | | | | | | + + + +---------+ + + | aspirin 81 mg EC | Take 81 mg by mouth | | 0 | | | | tablet | Daily. | | | | | + + + +---------+ + + | carvedilol (COREG) | Take 12.5 mg by | | 0 | | | | 12.5 mg tablet | mouth. | | | | | + + + +---------+ + + | chlorproMAZINE | Take 1 tablet by | 90 | 2 | 11/10/19 | | | (THORAZINE) 25 mg | mouth 3 times daily. | tablet | | 18 | | | tablet | | | | | | + + + +---------+ + + | hydrALAZINE | Take 25 mg by mouth. | | 0 | | | | (APRESOLINE) 25 mg | | | | | | | tablet | | | | | | + + + +---------+ + + | losartan (COZAAR) | Take 50 mg by mouth | | 0 | | | | 50 mg tablet | Daily. | | | | | + + + +---------+ + + documented as of this encounter Progress Notes Eva Meza RN - 11/03/2018 1604 PSTVascular Access Team Note- Following Infusion Nurses Society standards of care; a BARD 5fr triple-lumen PICC inserted x 1stick, using Ultrasound/ modified Seldinger technique. PICC advanced to 50cm and confirme d by cxr. Ok to use. All lumens draw bright red blood briskly and flush easily with normal s jeanna. Dressing with gauze d/t pt oozing post insertion- dressing will need to be changed to mireles. SBAR report to JASON Max who continues care. Thank you for this referral. Electronically signed by: Eva Meza RN 11/03/2018 16:04 Natalie Martino M D - 11/03/[address] [facility] [place] HOSPITALIST PROGRESS NOTE Patient: Taurus Domínguez : 1965: Age: 53 y.o. MedRec: [id number] Admission date: 11/02/2018 Hospital day # : 1 Physician author: Natalie Reyes MD Today: 11/03/2018 Assessment and Hospital Course Active Hospital Problems Diagnosis Atrial fibrillation with RVR Troponin level elevated Cerebrovascular accident (CVA) due to thrombosis of cerebral artery Panlobular emphysema Resolved Hospital Problems Diagnosis No resolved problems to display. 53 yo M with history of CVA, hypertension, COPD, who presented with severe epigastric pain radiating to the chest found to have a fib with RVR. Plan #A fib with RVR Patient presented with epigastric and chest discomfort that was relieved once his heart rat e was under better control. Dilt drip discontinued overnight but patient continues to have h igh heart rate this morning 110s-120s. TSH within normal limits. Echo pending. [id number] sc ore 3, warranting anticoag (prior stroke, hypertension). - increase Coreg to 25 mg/d - add diltiazem oral 60 mg q6h - continue tele - optimize electrolytes - follow up echo - start apixaban #Troponin elevation #Suspected T2MI Likely demand ischemia in the s/o RVR. Mild troponin elevation. No EKG obtained here, have ordered this morning to evaluate for ST changes. Will order stress test once we have heart rate under better control. Patient reports that h e has had a stress test years ago that he thinks was normal. #Hypertension Blood pressures elevated this morning, increased beta jenise and added CCB as above. CTM. #COPD Nebulizers as needed. respiratory therapy evaluation/treat. FEN: fat/chol mod Ppx: start apixaban Disposition: pending clinical course, remain in stepdown until we get better heart rate con trol ADDENDUM: Echo read showed severe biventricular congestive heart failure with EF around 20%. Will sto p diltiazem, start amio. Echo from OSH in 2015 showed normal EF. Patient was seen by [facility] in March 2018; patient reported drinking a fifth of whiskey daily at that time. [place] d [place] scan in March 2018; cannot see the results in our EMR but patient thinks study was negat asad. Add CIWA protocol for alcohol w/d. Chest x-ray appears to have RLL infiltrate - will start CTX. Patient having worsening hypox ia, hypotension. No cough, no fever. Given scleral icterus, concern about liver disease given alcohol history, will HOLD further eliquis for now; pradaxa would be the safest OAC for him if he does in fact have chronic li db disease. Patient's condition worsening later this afternoon. PICC line placed; norepi initiated. Blo od pressure persistently low and we are limited in our ability to give fluid given patient's poor cardiac status. Unclear etiology of shock - suspect septic (given pulm infiltrate) vs cardiogenic. CTM closely. Patient transferred from stepdown to level 1 status. 30-74m critical care time spent on this patient today. Subjective CC: epigastric discomfort Patient feels better this morning; pain prompting admission has largely resolved. Does not feel palpitations. Denies chest pain. Denies dizziness/lightheadedness. ROS was performed and was negative except as noted above. Exam Gen: WDWN, no acute distress HEENT: MMM, neck supple, scleral icterus CV: IIRR Pulm: LCAB Abdominal: soft but protuberant, nontender, nondistended, normal bowel tones Extremities: well perfused, no edema Skin: warm, dry, no rashes Neuro: alert, CN intact, no focal deficits Psych: normal mood and affect Allergies: No Known Allergies Current Medications: Current Facility-Administered Medications Medication Dose Route Frequency Provider Last Rate Last Dose acetaminophen (TYLENOL) tablet 650 mg 650 mg Oral Q4H PRN Arlin Chou MD albuterol-ipratropium 2.5-0.5 mg/3 mL nebulizer solution 3 mL 3 mL Nebulization RT Q6H PRN Arlin Chou MD 3 mL at 11/03/18 0718 apixaban (ELIQUIS) tablet 5 mg 5 mg Oral BID Natalie Reyes MD aspirin EC tablet 81 mg 81 mg Oral Daily Natalie Reyes MD carvedilol (COREG) tablet 25 mg 25 mg Oral BID WC Natalie Reyes MD chlorproMAZINE (THORAZINE) tablet 25 mg 25 mg Oral Q6H PRN Arlin Chou MD dilTIAZem (CARDIZEM) 1 mg/mL in sodium chloride 0.9% 125 mL infusion 5-15 mg/hr Intrav enous Titrated Arlin Chou MD 15 mL/hr at 11/03/18 0600 15 mg/hr at 11/03/18 060 0 dilTIAZem (CARDIZEM) tablet 60 mg 60 mg Oral 4 times per day Natalie Reyes MD docusate sodium (COLACE) capsule 100 mg 100 mg Oral BID PRN Arlin Chou MD magnesium sulfate 2 g/50 mL IVPB 2 g 2 g Intravenous Once Natalie Reyes MD ondansetron (ZOFRAN) injection 4 mg 4 mg Intravenous Q6H PRN Timo Mckeon potassium chloride (Klor-Con M20) ER tablet 40 mEq 40 mEq Oral Once Natalei Reyes MD Current Infusions: dilTIAZem 15 mg/hr (11/03/18 0600) Objective Data Point of care glucose No results for input(s): POCGLU in the last 168 hours. Labs last 24 hours Recent Results (from the past 24 hour(s)) Troponin I Collection Time: 11/02/18 18:33 Result Value Ref Range Troponin I 0.29 (H) <0.06 ng/mL Drugs of Abuse, Screen, Urine Collection Time: 11/03/18 0:22 Result Value Ref Range Amphetamine Screen, Urine Negative Negative Barbiturates Screen, Urine Negative Negative Benzodiazepines Screen, Urine Negative Negative Cannabinoids Screen, Urine Positive (A) Negative Cocaine Screen, Urine Negative Negative Methadone Screen, Urine Negative Negative Opiates Screen, Urine Positive (A) Negative Troponin I Collection Time: 11/03/18 0:27 Result Value Ref Range Troponin I 0.31 (H) <0.06 ng/mL CBC with Differential Collection Time: 11/03/18 6:09 Result Value Ref Range WBC 10.4 4.0 - 11.0 K/uL RBC 4.52 4.30 - 5.70 M/uL Hemoglobin 14.8 13.5 - 18.0 g/dL Hematocrit 43.4 40.0 - 51.0 % MCV 96.0 83.0 - 101.0 fL MCH 32.7 28.0 - 35.0 pg MCHC 34.1 32.0 - 36.0 g/dL RDW-CV 14.6 <15.0 % RDW-SD 51.7 (H) 35.1 - 46.3 fL Platelet Count 186 140 - 440 K/uL MPV 10.4 6.5 - 12.4 fL % Neutrophils 77.4 45.0 - 82.0 % % Lymphocytes 10.9 (L) 20.0 - 45.0 % % Monocytes 10.5 4.0 - 12.0 % % Eosinophils 0.2 0.0 - 5.0 % % Basophils 0.5 0.0 - 1.0 % % Immature Granulocytes 0.5 (H) 0.0 - 0.4 % Absolute Neutrophils 8.07 1.80 - 8.50 K/uL Absolute Lymphocytes 1.14 0.60 - 3.20 K/uL Absolute Monocytes 1.09 (H) 0.00 - 1.00 K/uL Absolute Eosinophils 0.02 0.00 - 0.40 K/uL Absolute Basophils 0.05 0.00 - 0.10 K/uL Absolute Immature Granulocytes 0.05 (H) 0.00 - 0.03 K/uL % nRBC 0 0 - 2 per 100 WBC's Absolute nRBC 0.00 0.00 - 0.01 K/uL Comprehensive Metabolic Panel Collection Time: 11/03/18 6:09 Result Value Ref Range Na 134 (L) 136 - 145 mmol/L K 3.4 3.4 - 5.1 mmol/L Cl 96 (L) 98 - 107 mmol/L CO2 25 20 - 31 mmol/L Anion Gap 13 3 - 16 mmol/L Glucose 127 (H) 60 - 106 mg/dL BUN 13 9 - 23 mg/dL Creatinine 0.63 (L) 0.70 - 1.30 mg/dL eGFR if not >60 >=60 mL/min/1.73m2 Ca 9.6 8.7 - 10.4 mg/dL Albumin 3.9 3.2 - 4.8 g/dL Bilirubin Total 4.2 (H) 0.3 - 1.2 mg/dL Total Protein 5.7 5.7 - 8.2 g/dL AST 16 0 - 34 U/L ALT 32 10 - 49 U/L Alkaline Phosphatase 47 46 - 116 U/L Globulin 1.8 (L) 2.1 - 3.8 g/dL Albumin/Globulin Ratio 2.2 (H) 0.8 - 1.9 BUN/Creatinine Ratio 20.6 Magnesium Collection Time: 11/03/18 6:09 Result Value Ref Range Magnesium 1.8 1.8 - 2.5 mg/dL B Type Natriuretic Peptide Collection Time: 11/03/18 6:09 Result Value Ref Range BNP 557 (H) <100 pg/mL TSH Collection Time: 11/03/18 6:09 Result Value Ref Range TSH 2.12 0.55 - 4.78 uIU/mL Lipid Panel Collection Time: 11/03/18 6:09 Result Value Ref Range Triglycerides 68 <=150 mg/dL Cholesterol 166 <=200 mg/dL HDL 74 (H) 40 - 60 mg/dL Chol/HDL Ratio 2.2 LDL, Calculated 78 <=130 mg/dL Troponin I Collection Time: 11/03/18 6:09 Result Value Ref Range Troponin I 0.25 (H) <0.06 ng/mL Micro results (more choices using dot micro) Microbiology Results (72 hrs) Procedure Component Value Units Date/Time Culture, MRSA [[id number]] Collected: 11/02/18 1800 Order Status: Sent Lab Status: In process Updated: 11/02/181908 Specimen: Tissue from Nares Radiology results (more choices using dot risresults) No results found. Vitals Ranges: Temp: [36.2 C (97.2 F)-37.2 C (99 F)] 36.2 C (97.2 F) Pulse: [89-113] 98 Resp: [11-27] 22 BP: (113-141)/(87-114) 127/107 Vitals: Temp: 36.2 C (97.2 F) BP: (!) 127/107 Pulse: 98 Resp: 22 SpO2: 93 % SpO2 93 % on room air at flow rate L/min Natalie Reyes MD 11/03/2018 8:30 [facility] Treatment Not on filedocumented as of this encounter Procedures + +--------+ + + + | Procedure Name | Priori | Date/Time | Associated Diagnosis | Comments | | | ty | | | | + +--------+ + + + | ECG 12 LEAD | Routin | 11/03/2018 | | Results for this | | | e | 18:10 PST | | procedure are in the | | | | | | results section. | + +--------+ + + + | XR CHEST AP PORTABLE | STAT | 11/03/2018 | | Results for this | | | | 18:03 PST | | procedure are in the | | | | | | results section. | + +--------+ + + + | POC BLOOD GASES | Routin | 11/03/2018 | | Results for this | | | e | 18:01 PST | | procedure are in the | | | | | | results section. | + +--------+ + + + | EXTRA PLAIN RED TOP | Routin | 11/03/2018 | | Results for this | | | e | 16:50 PST | | procedure are in the | | | | | | results section. | + +--------+ + + + | EXTRA GREEN TOP TUBE | Routin | 11/03/2018 | | Results for this | | | e | 16:50 PST | | procedure are in the | | | | | | results section. | + +--------+ + + + | EXTRA GOLD TOP TUBE | Routin | 11/03/2018 | | Results for this | | | e | 16:50 PST | | procedure are in the | | | | | | results section. | + +--------+ + + + | CULTURE, BLOOD | STAT | 11/03/2018 | | Results for this | | | | 16:32 PST | | procedure are in the | | | | | | results section. | + +--------+ + + + | CULTURE, BLOOD | STAT | 11/03/2018 | | Results for this | | | | 16:30 PST | | procedure are in the | | | | | | results section. | + +--------+ + + + | CBC WITH | STAT | 11/03/2018 | | Results for this | | DIFFERENTIAL | | 16:30 PST | | procedure are in the | | | | | | results section. | + +--------+ + + + | LACTIC ACID | STAT | 11/03/2018 | | Results for this | | | | 16:30 PST | | procedure are in the | | | | | | results section. | + +--------+ + + + | BASIC METABOLIC | STAT | 11/03/2018 | | Results for this | | PANEL | | 16:30 PST | | procedure are in the | | | | | | results section. | + +--------+ + + + | XR CHEST AP PORTABLE | [facility] | 11/03/2018 | Atrial | Results for this | | | | 15:57 PST | fibrillation with | procedure are in the | | | | | RVR (HCC) | results section. | + +--------+ + + + | PROTIME INR | Add-On | 11/03/2018 | | Results for this | | | | 15:03 PST | | procedure are in the | | | | | | results section. | + +--------+ + + + | XR CHEST AP PORTABLE | Routin | 11/03/2018 | | Results for this | | | e | 12:58 PST | | procedure are in the | | | | | | results section. | + +--------+ + + + | ECG 12 LEAD | [facility] | 11/03/2018 | | Results for this | | | | 9:08 PST | | procedure are in the | | | | | | results section. | + +--------+ + + + | ECHO COMPLETE | Routin | 11/03/2018 | | Results for this | | | e | 8:22 PST | | procedure are in the | | | | | | results section. | + +--------+ + + + | LIPID PANEL | Routin | 11/03/2018 | | Results for this | | | e | 6:09 PST | | procedure are in the | | | | | | results section. | + +--------+ + + + | TROPONIN I | Routin | 11/03/2018 | | Results for this | | | e | 6:09 PST | | procedure are in the | | | | | | results section. | + +--------+ + + + | CBC WITH | Routin | 11/03/2018 | | Results for this | | DIFFERENTIAL | e | 6:09 PST | | procedure are in the | | | | | | results section. | + +--------+ + + + | TSH | Routin | 11/03/2018 | | Results for this | | | e | 6:09 PST | | procedure are in the | | | | | | results section. | + +--------+ + + + | B TYPE NATRIURETIC | Routin | 11/03/2018 | | Results for this | | PEPTIDE | e | 6:09 PST | | procedure are in the | | | | | | results section. | + +--------+ + + + | MAGNESIUM | Routin | 11/03/2018 | | Results for this | | | e | 6:09 PST | | procedure are in the | | | | | | results section. | + +--------+ + + + | COMPREHENSIVE | Routin | 11/03/2018 | | Results for this | | METABOLIC PANEL | e | 6:09 PST | | procedure are in the | | | | | | results section. | + +--------+ + + + | TROPONIN I | Routin | 11/03/2018 | | Results for this | | | e | 0:27 PST | | procedure are in the | | | | | | results section. | + +--------+ + + + | DRUGS OF ABUSE, | Routin | 11/03/2018 | | Results for this | | SCREEN, URINE | e | 0:22 PST | | procedure are in the | | | | | | results section. | + +--------+ + + + | TROPONIN I | Routin | 11/02/2018 | | Results for this | | | e | 18:33 PST | | procedure are in the | | | | | | results section. | + +--------+ + + + | CULTURE, MRSA | Routin | 11/02/2018 | | Results for this | | | e | 18:00 PST | | procedure are in the | | | | | | results section. | + +--------+ + + + | IMAGING REPORT - | | 11/02/2018 | | Results for this | | EXTERNAL SCAN | | 0:00 PST | | procedure are in the | | | | | | results section. | + +--------+ + + + | IMAGING REPORT - | | 11/02/2018 | | Results for this | | EXTERNAL SCAN | | 0:00 PST | | procedure are in the | | | | | | results section. | + +--------+ + + + | IMAGING REPORT - | | 11/02/2018 | | Results for this | | EXTERNAL SCAN | | 0:00 PST | | procedure are in the | | | | | | results section. | + +--------+ + + + | ECG - EXTERNAL SCAN | | 11/02/2018 | | Results for this | | | | 0:00 PST | | procedure are in the | | | | | | results section. | + +--------+ + + + documented in this encounter Results ECG 12 lead (11/03/2018 18:10 PST) + + + + + + | Component | Value | Ref Range | Performed | Pathologist | | | | | At | Signature | + + + + + + | VENTRICULAR | 94 | BPM | [facility] | | | RATE EKG | | | | | + + + + + + | QRS | 90 | ms | [facility] | | | DURATION | | | | | + + + + + + | Q-T | 410 | ms | [facility] | | | INTERVAL | | | | | + + + + + + | Q-T | 512 | ms | [facility] | | | INTERVAL | | | | | | (CORRECTED) | | | | | + + + + + + | QRS AXIS | -75 | degrees | [facility] | | + + + + + + | T AXIS | 90 | degrees | [facility] | | + + + + + + | INTERPRETAT | Atrial fibrillationLeft | | [facility] | | | ION TEXT | axis deviationLow | | | | | | voltage QRSPossible | | | | | | Septal infarct , age | | | | | | undeterminedPossible | | | | | | Inferior infarct , age | | | | | | undeterminedT wave | | | | | | abnormality, consider | | | | | | anterolateral | | | | | | ischemiaProlonged | | | | | | QTAbnormal ECGWhen | | | | | | compared with ECG of | | | | | | 03-NOV-2018 18:10, | | | | | | (Unconfirmed)Criteria | | | | | | for Inferior infarct , | | | | | | age undetermined is now | | | | | | presentConfirmed by | | | | | | SUSANNAH CUI MD ([id number]) | | | | | | on 11/04/2018 8:09:02 AM | | | | + + + + + + + + | Specimen | + + | | + + + + + | Narrative | Performed At | + + + | | | + + + + +---------+ + + | Performing | Address | City/State/Zipcode | Phone Number | | Organization | | | | + +---------+ + + | [facility] | | | | + +---------+ + + XR Chest AP Portable (11/03/2018 18:03 PST) + + | Specimen | + + | | + + + + + | Narrative | Performed At | + + + | XR CHEST AP PORTABLE 11/03/2018 5:53 PM HISTORY: intubation. | [facility] | | COMPARISON: Multiple priors. Findings: There is interval | | | placement of an endotracheal tube with tip 4.7 cm above the sanjay | | | and at the upper aspect of the aortic knob. An enteric tube projects | | | into the mid stomach. There is a right PICC line with tip at the | | | cavoatrial junction. The heart is enlarged. Aorta is normal. | | | Mediastinum demonstrates no acute findings. Pulmonary vasculature is | | | prominent. A small right pleural effusion is observed along with mild | | | compressive atelectasis. There are no acute osseous abnormalities. | | | IMPRESSION - Interval placement of endotracheal tube with tip 4.7 | | | cm above the sanjay. Enteric tube and right PICC line in place. | | | Cardiomegaly. Small right pleural effusion with mild compressive | | | atelectasis. Dictated and Signed by: Emmanuel Mace MD | | | Electronically signed: 11/04/2018 10:00 AM | | + + + + + | Procedure Note | + + | Osmin, Rad Results In - 11/04/2018 1003 PST XR CHEST AP PORTABLE 11/03/2018 5:53 PM | | | | HISTORY: intubation. | | | | COMPARISON: Multiple priors. | | | | Findings: | | There is interval placement of an endotracheal tube with tip 4.7 cm above the | | sanjay and at the upper aspect of the aortic knob. An enteric tube projects into | | the mid stomach. There is a right PICC line with tip at the cavoatrial junction. | | The heart is enlarged. Aorta is normal. Mediastinum demonstrates no acute | | findings. Pulmonary vasculature is prominent. A small right pleural effusion is | | observed along with mild compressive atelectasis. There are no acute osseous | | abnormalities. | | | | IMPRESSION - | | Interval placement of endotracheal tube with tip 4.7 cm above the sanjay. | | | | Enteric tube and right PICC line in place. | | | | Cardiomegaly. | | | | Small right pleural effusion with mild compressive atelectasis. | | | | Dictated and Signed by: Emmanuel Mace MD | | Electronically signed: 11/04/2018 10:00 AM | + + + +---------+ + + | Performing | Address | City/State/Zipcode | Phone Number | | Organization | | | | + +---------+ + + | [facility] | | | | + +---------+ + + POC Blood Gases (11/03/2018 18:01 PST) + + + + + + | Component | Value | Ref Range | Performed | Pathologist | | | | | At | Signature | + + + + + + | Specimen | Artery | | [facility] | | | Source | | | [facility] | | | | | | [facility] | | | | | | [facility] - | | | | | | LABORATORY | | + + + + + + | pH, POC | 7.251 (L) | 7.3 - 7.45 | [facility] | | | | | | [facility] | | | | | | [facility] | | | | | | C[facility] - | | | | | | LABORATORY | | + + + + + + | HCO3, POC | 21.6 | 21.0 - 28.0 | [facility] | | | | | mmol/L | [facility] | | | | | | [facility] | | | | | | CENTER - | | | | | | LABORATORY | | + + + + + + | TCO2, POC | 23.1 | 22.0 - 29.0 | [facility] | | | | | mmol/L | [facility] | | | | | | [facility] | | | | | | CENTER - | | | | | | LABORATORY | | + + + + + + | Base | -6.0 (L) | -2.0 - 3.0 | [facility] | | | Excess, POC | | mmol/L | [facility] | | | | | | MEDICAL | | | | | | CENTER - | | | | | | LABORATORY | | + + + + + + | Base | -5.6 (L) | -2.0 - 3.0 | [facility] | | | Excess, | | mmol/L | [facility] | | | Extracellul | | | MEDICAL | | | ar fluid, | | | CENTER - | | | POC | | | LABORATORY | | + + + + + + | O2 Sat, POC | 74 (L) | 90 - 100 % | [facility] | | | | | | [facility] | | | | | | [facility]ICAL | | | | | | CENTER - | | | | | | LABORATORY | | + + + + + + | PCO2, POC | 49.1 (H) | 35 - 45 mmHg | [facility] | | | | | | [facility] | | | | | | [facility] | | | | | | CENTER - | | | | | | LABORATORY | | + + + + + + | PO2, POC | 45.8 (L) | 60 - 750.0 mmHg | [facility] | | | | | | [facility] | | | | | | [facility] | | | | | | CENTER - | | | | | | LABORATORY | | + + + + + + + + | Specimen | + + | Blood | + + + + + + + | Performing | Address | City/State/Zipcode | Phone Number | | Organization | | | | + + + + + | [facility] | [address] | [place] | [phone] | | [facility] | | [address] | | | - LABORATORY | | | | + + + + + Extra Plain Red Top Tube (11/03/2018 16:50 PST) + +-------+ + + + | Component | Value | Ref Range | Performed | Pathologist | | | | | At | Signature | + +-------+ + + + | Extra Plain | Done | | [facility] | | | Red Top | | | [facility] | | | Tube | | | MEDICAL | | | | | | CENTER - | | | | | | LABORATORY | | + +-------+ + + + + + | Specimen | + + | Blood | + + + + + + + | Performing | Address | City/State/Zipcode | Phone Number | | Organization | | | | + + + + + | [facility] | [address] | [place] | [phone] | | [facility] | | [address] | | | - LABORATORY | | | | + + + + + Extra Green Top Tube (11/03/2018 16:50 PST) + +-------+ + + + | Component | Value | Ref Range | Performed | Pathologist | | | | | At | Signature | + +-------+ + + + | Extra Green | Done | | [facility] | | | Top Tube | | | [facility] | | | | | | MEDICAL | | | | | | CENTER - | | | | | | LABORATORY | | + +-------+ + + + + + | Specimen | + + | Blood | + + + + + + + | Performing | Address | City/State/Zipcode | Phone Number | | Organization | | | | + + + + + | [facility] | [address] | [place] | [phone] | | [facility] | | [address] | | | - LABORATORY | | | | + + + + + Extra Gold Top Tube (11/03/2018 16:50 PST) + +-------+ + + + | Component | Value | Ref Range | Performed | Pathologist | | | | | At | Signature | + +-------+ + + + | Extra Gold | Done | | [facility] | | | Top Tube | | | [facility] | | | | | | MEDICAL | | | | | | CENTER - | | | | | | LABORATORY | | + +-------+ + + + + + | Specimen | + + | Blood | + + + + + + + | Performing | Address | City/State/Zipcode | Phone Number | | Organization | | | | + + + + + | [facility] | [address] | [place] | [phone] | | [facility] | | [address] | | | - LABORATORY | | | | + + + + + Culture, Blood (11/03/2018 16:32 PST) + + + + + + | Component | Value | Ref Range | Performed | Pathologist | | | | | At | Signature | + + + + + + | Culture | No growth after 5 days | | [facility] | | | | incubation. | | [facility] | | | | | | MEDICAL | | | | | | CENTER - | | | | | | LABORATORY | | + + + + + + + + | Specimen | + + | Blood | + + + + + + + | Performing | Address | City/State/Zipcode | Phone Number | | Organization | | | | + + + + + | [facility] | [address] | [place] | [phone] | | [facility] | | [address] | | | - LABORATORY | | | | + + + + + Basic Metabolic Panel (11/03/2018 16:30 PST) + +---------+ + + + | Component | Value | Ref Range | Performed | Pathologist | | | | | At | Signature | + +---------+ + + + | Na | 131 (L) | 136 - 145 | [facility] | | | | | mmol/L | [facility] | | | | | | MEDICAL | | | | | | CENTER - | | | | | | LABORATORY | | + +---------+ + + + | K | 4.9 | 3.4 - 5.1 | [facility] | | | | | mmol/L | [facility] | | | | | | MEDICAL | | | | | | CENTER - | | | | | | LABORATORY | | + +---------+ + + + | Cl | 97 (L) | 98 - 107 mmol/L | [facility] | | | | | | [facility] | | | | | | MEDICAL | | | | | | CENTER - | | | | | | LABORATORY | | + +---------+ + + + | CO2 | 20 | 20 - 31 mmol/L | [facility] | | | | | | [facility] | | | | | | MEDICAL | | | | | | CENTER - | | | | | | LABORATORY | | + +---------+ + + + | Anion Gap | 14 | 3 - 16 mmol/L | [facility] | | | | | | [facility] | | | | | | MEDICAL | | | | | | CENTER - | | | | | | LABORATORY | | + +---------+ + + + | Glucose | 239 (H) | 60 - 106 mg/dL | [facility] | | | | | | [facility] | | | | | | MEDICAL | | | | | | CENTER - | | | | | | LABORATORY | | + +---------+ + + + | BUN | 18 | 9 - 23 mg/dL | [facility] | | | | | | [facility] | | | | | | MEDICAL | | | | | | CENTER - | | | | | | LABORATORY | | + +---------+ + + + | Creatinine | 1.26 | 0.70 - 1.30 | [facility] | | | | | mg/dL | [facility] | | | | | | MEDICAL | | | | | | CENTER - | | | | | | LABORATORY | | + +---------+ + + + | eGFR if not | 59 (L) | >=60 | [facility] | | | | | mL/min/1.73m2 | [facility] | | | [facility] [place] | | | MEDICAL | | | | | | CENTER - | | | | | | LABORATORY | | + +---------+ + + + | Ca | 9.8 | 8.7 - 10.4 | [facility] | | | | | mg/dL | [facility] | | | | | | MEDICAL | | | | | | CENTER - | | | | | | LABORATORY | | + +---------+ + + + | BUN/Creatin | 14.3 | | [facility] | | | ine Ratio | | | [facility] | | | | | | MEDICAL | | | | | | CENTER - | | | | | | LABORATORY | | + +---------+ + + + + + | Specimen | + + | Blood | + + + + + + + | Performing | Address | City/State/Zipcode | Phone Number | | Organization | | | | + + + + + | [facility] | [address] | [place] | [phone] | | [facility] | | [address] | | | - LABORATORY | | | | + + + + + CBC with Differential (11/03/2018 16:30 PST) + + + + + + | Component | Value | Ref Range | Performed | Pathologist | | | | | At | Signature | + + + + + + | WBC | 13.2 (H) | 4.0 - 11.0 K/uL | [facility] | | | [facility] | | | | | | [facility] | | | | | | CENTER - | | | | | | LABORATORY | | + + + + + + | RBC | 4.80 | 4.30 - 5.70 | [facility] | | | | | M/uL | [facility] | | | | | | MEDICAL | | | | | | CENTER - | | | | | | LABORATORY | | + + + + + + | Hemoglobin | 15.7 | 13.5 - 18.0 | [facility] | | | | | g/dL | [facility] | | | | | | MEDICAL | | | | | | CENTER - | | | | | | LABORATORY | | + + + + + + | Hematocrit | 47.4 | 40.0 - 51.0 % | [facility] | | | | | | [facility] | | | | | | MEDICAL | | | | | | CENTER - | | | | | | LABORATORY | | + + + + + + | MCV | 98.8 | 83.0 - 101.0 fL | [facility] | | | | | | [facility] | | | | | | MEDICAL | | | | | | CENTER - | | | | | | LABORATORY | | + + + + + + | MCH | 32.7 | 28.0 - 35.0 pg | [facility] | | | | | | [facility] | | | | | | MEDICAL | | | | | | CENTER - | | | | | | LABORATORY | | + + + + + + | MCHC | 33.1 | 32.0 - 36.0 | [facility] | | | | | g/dL | [facility] | | | | | | MEDICAL | | | | | | CENTER - | | | | | | LABORATORY | | + + + + + + | RDW-CV | 14.8 | <15.0 % | [facility] | | | | | | [facility] | | | | | | MEDICAL | | | | | | CENTER - | | | | | | LABORATORY | | + + + + + + | RDW-SD | 54.0 (H) | 35.1 - 46.3 fL | [facility] | | | | | | [facility] | | | | | | MEDICAL | | | | | | CENTER - | | | | | | LABORATORY | | + + + + + + | Platelet | 213 | 140 - 440 K/uL | [facility] | | | Count | | | [facility] | | | | | | MEDICAL | | | | | | CENTER - | | | | | | LABORATORY | | + + + + + + | MPV | 10.3 | 6.5 - 12.4 fL | [facility] | | | | | | [facility] | | | | | | MEDICAL | | | | | | CENTER - | | | | | | LABORATORY | | + + + + + + | % | 83.7 (H) | 45.0 - 82.0 % | [facility] | | | Neutrophils | | | [facility] | | | | | | MEDICAL | | | | | | CENTER - | | | | | | LABORATORY | | + + + + + + | % | 9.0 (L) | 20.0 - 45.0 % | [facility] | | | Lymphocytes | | | [facility] | | | | | | MEDICAL | | | | | | CENTER - | | | | | | LABORATORY | | + + + + + + | % Monocytes | 6.4 | 4.0 - 12.0 % | [facility] | | | | | | [facility] | | | | | | MEDICAL | | | | | | CENTER - | | | | | | LABORATORY | | + + + + + + | % | 0.1 | 0.0 - 5.0 % | [facility] | | | Eosinophils | | | [facility] | | | | | | MEDICAL | | | | | | CENTER - | | | | | | LABORATORY | | + + + + + + | % Basophils | 0.2 | 0.0 - 1.0 % | [facility] | | | | | | [facility] | | | | | | MEDICAL | | | | | | CENTER - | | | | | | LABORATORY | | + + + + + + | % Immature | 0.6 (H)Comment: | 0.0 - 0.4 % | [facility] | | | Granulocyte | Preliminary studIes have | | [facility] | | | s | indicated the IG% | | MEDICAL | | | | and/or IG# show promise | | CENTER - | | | | as an early screen for | | LABORATORY | | | | infection. | | | | + + + + + + | Absolute | 11.04 (H) | 1.80 - 8.50 | [facility] | | | Neutrophils | | K/uL | [facility] | | | | | | MEDICAL | | | | | | CENTER - | | | | | | LABORATORY | | + + + + + + | Absolute | 1.19 | 0.60 - 3.20 | [facility] | | | Lymphocytes | | K/uL | [facility] | | | | | | MEDICAL | | | | | | CENTER - | | | | | | LABORATORY | | + + + + + + | Absolute | 0.85 | 0.00 - 1.00 | [facility] | | | Monocytes | | K/uL | [facility] | | | | | | MEDICAL | | | | | | CENTER - | | | | | | LABORATORY | | + + + + + + | Absolute | 0.01 | 0.00 - 0.40 | [facility] | | | Eosinophils | | K/uL | [facility] | | | | | | MEDICAL | | | | | | CENTER - | | | | | | LABORATORY | | + + + + + + | Absolute | 0.03 | 0.00 - 0.10 | [facility] | | | Basophils | | K/uL | [facility] | | | | | | MEDICAL | | | | | | CENTER - | | | | | | LABORATORY | | + + + + + + | Absolute | 0.08 (H) | 0.00 - 0.03 | [facility] | | | Immature | | K/uL | [facility] | | | Granulocyte | | | MEDICAL | | | s | | | CENTER - | | | | | | LABORATORY | | + + + + + + | % nRBC | 0 | 0 - 2 per 100 | [facility] | | | | | WBC's | [facility] | | | | | | MEDICAL | | | | | | CENTER - | | | | | | LABORATORY | | + + + + + + | Absolute | 0.00 | 0.00 - 0.01 | [facility] | | | nRBC | | K/uL | [facility] | | | | | | MEDICAL | | | | | | CENTER - | | | | | | LABORATORY | | + + + + + + + + | Specimen | + + | Blood | + + + + + + + | Performing | Address | City/State/Zipcode | Phone Number | | Organization | | | | + + + + + | [facility] | [address] | [place] | [phone] | | [facility] | | [address] | | | - LABORATORY | | | | + + + + + Lactic Acid (11/03/2018 16:30 PST) + + + + + + | Component | Value | Ref Range | Performed | Pathologist | | | | | At | Signature | + + + + + + | Lactate | 4.9 ()Comment: | 0.5 - 2.2 | [facility] | | | | Critical Result called | mmol/L | [facility] | | | | to and read back by troy | | MEDICAL | | | | janessa GOMEZ on 11/03/2018 | | CENTER - | | | | at 23:44 by Gaurang | | LABORATORY | | | | Vicky. | | | | + + + + + + + + | Specimen | + + | Blood | + + + + + + + | Performing | Address | City/State/Zipcode | Phone Number | | Organization | | | | + + + + + | [facility] | [address] | [place] | [phone] | | [facility] | | [address] | | | - LABORATORY | | | | + + + + + Culture, Blood (11/03/2018 16:30 PST) + + + + + + | Component | Value | Ref Range | Performed | Pathologist | | | | | At | Signature | + + + + + + | Culture | No growth after 5 days | | [facility] | | | | incubation. | | [facility] | | | | | | MEDICAL | | | | | | CENTER - | | | | | | LABORATORY | | + + + + + + + + | Specimen | + + | Blood | + + + + + + + | Performing | Address | City/State/Zipcode | Phone Number | | Organization | | | | + + + + + | [facility] | [address] | [place], [place] | [phone] | | [facility] | | [address] | | | - LABORATORY | | | | + + + + + XR Chest AP Portable (11/03/2018 15:57 PST) + + | Specimen | + + | | + + + + + | Narrative | Performed At | + + + | SINGLE AP CHEST 11/03/2018 3:37 PM CLINICAL HISTORY: picc line | [facility] | | placement COMPARISON: Radiography from earlier in the day and more | | | remote imaging FINDINGS: Right approach PICC is now present, | | | terminating at the level of the cavoatrial junction. There is | | | similar enlargement of the cardiac silhouette and prominence of the | | | central pulmonary vasculature. Hazy reticular opacity persists in | | | the right greater than left lung bases, and a small right pleural | | | effusion is now suggested. The upper lung poole are clear. No | | | pneumothorax is evident. Bones and soft tissues are unremarkable. | | | IMPRESSION - 1. RIGHT APPROACH PICC TERMINATING AT THE | | | LEVEL OF THE CAVOATRIAL JUNCTION. 2. SIMILAR ENLARGEMENT OF THE | | | CARDIAC SILHOUETTE AND PROMINENCE OF THE CENTRAL PULMONARY | | | VASCULATURE WITH NON-SPECIFIC RIGHT GREATER THAN LEFT BASILAR OPACITY | | | AND NEWLY VISIBLE SMALL RIGHT PLEURAL EFFUSION. Dictated and | | | Signed by: Lázaro Melo MD Electronically signed: 11/03/2018 3:57 | | | PM | | + + + + + | Procedure Note | + + | Osmin, Rad Results In - 11/03/2018 1601 PST SINGLE AP CHEST 11/03/2018 3:37 PM | | | | CLINICAL HISTORY: picc line placement | | | | COMPARISON: Radiography from earlier in the day and more remote imaging | | | | FINDINGS: Right approach PICC is now present, terminating at the level of the | | cavoatrial junction. There is similar enlargement of the cardiac silhouette and | | prominence of the central pulmonary vasculature. Hazy reticular opacity | | persists in the right greater than left lung bases, and a small right pleural | | effusion is now suggested. The upper lung poole are clear. No pneumothorax is | | evident. Bones and soft tissues are unremarkable. | | | | IMPRESSION - | | | | 1. RIGHT APPROACH PICC TERMINATING AT THE LEVEL OF THE CAVOATRIAL JUNCTION. | | | | 2. SIMILAR ENLARGEMENT OF THE CARDIAC SILHOUETTE AND PROMINENCE OF THE CENTRAL | | PULMONARY VASCULATURE WITH NON-SPECIFIC RIGHT GREATER THAN LEFT BASILAR OPACITY | | AND NEWLY VISIBLE SMALL RIGHT PLEURAL EFFUSION. | | | | Dictated and Signed by: Lázaro Melo MD | | Electronically signed: 11/03/2018 3:57 PM | + + + +---------+ + + | Performing | Address | City/State/Zipcode | Phone Number | | Organization | | | | + +---------+ + + | [facility] | | | | + +---------+ + + Protime INR (11/03/2018 15:03 PST) + + + + + + | Component | Value | Ref Range | Performed | Pathologist | | | | | At | Signature | + + + + + + | Prothrombin | 18.1 (H) | 11.3 - 13.9 | [facility] | | | Time | | seconds | [facility] | | | | | | MEDICAL | | | | | | CENTER - | | | | | | LABORATORY | | + + + + + + | INR | 1.5 (H)Comment: Usual | 0.9 - 1.1 | [facility] | | | | Oral Anticoagulation | | [facility] | | | | Range: 2.0 - | | MEDICAL | | | | 3.0High Level Oral | | CENTER - | | | | Anticoagulation Range: | | LABORATORY | | | | 2.5 - 3.5 | | | | + + + + + + + + | Specimen | + + | Blood | + + + + + + + | Performing | Address | City/State/Zipcode | Phone Number | | Organization | | | | + + + + + | [facility] | [address] | [place] | [phone] | | [facility] | | [address] | | | - LABORATORY | | | | + + + + + XR Chest AP Portable (11/03/2018 12:58 PST) + + | Specimen | + + | | + + + + + | Narrative | Performed At | + + + | SINGLE AP CHEST 11/03/2018 12:50 PM CLINICAL HISTORY: CHF | [facility] | | COMPARISON: Radiographs May 2015 and more remote imaging | | | FINDINGS: The cardiac silhouette is now enlarged and there is | | | prominence of the central pulmonary vasculature. There is hazy | | | reticular opacity in the lung bases, right greater than left. No | | | pneumothorax or pleural effusion is evident. There are degenerative | | | changes of the shoulders. A healed left posterior lateral rib | | | fracture is again evident. Bones and soft tissues are otherwise | | | unremarkable. IMPRESSION - 1. FINDINGS SUSPICIOUS FOR | | | CONGESTIVE HEART FAILURE OR VOLUME OVERLOAD WITH NON-SPECIFIC BASILAR | | | RETICULAR OPACITY POTENTIALLY REFLECTING PULMONARY EDEMA. | | | Dictated and Signed by: Lázaro Melo MD Electronically signed: | | | 11/03/2018 4:00 PM | | + + + + + | Procedure Note | + + | Osmin, Rad Results In - 11/03/2018 1603 PST SINGLE AP CHEST 11/03/2018 12:50 PM | | | | CLINICAL HISTORY: CHF | | | | COMPARISON: Radiographs May 2015 and more remote imaging | | | | FINDINGS: The cardiac silhouette is now enlarged and there is prominence of the | | central pulmonary vasculature. There is hazy reticular opacity in the lung | | bases, right greater than left. No pneumothorax or pleural effusion is evident. | | There are degenerative changes of the shoulders. A healed left posterior | | lateral rib fracture is again evident. Bones and soft tissues are otherwise | | unremarkable. | | | | IMPRESSION - | | | | 1. FINDINGS SUSPICIOUS FOR CONGESTIVE HEART FAILURE OR VOLUME OVERLOAD WITH | | NON-SPECIFIC BASILAR RETICULAR OPACITY POTENTIALLY REFLECTING PULMONARY EDEMA. | | | | Dictated and Signed by: Lázaro Melo MD | | Electronically signed: 11/03/2018 4:00 PM | + + + +---------+ + + | Performing | Address | City/State/Zipcode | Phone Number | | Organization | | | | + +---------+ + + | [facility] | | | | + +---------+ + + ECG 12 lead (11/03/2018 9:08 PST) + + + + + + | Component | Value | Ref Range | Performed | Pathologist | | | | | At | Signature | + + + + + + | VENTRICULAR | 119 | BPM | [facility] | | | RATE EKG | | | | | + + + + + + | QRS | 90 | ms | [facility] | | | DURATION | | | | | + + + + + + | Q-T | 338 | ms | [facility] | | | INTERVAL | | | | | + + + + + + | Q-T | 475 | ms | [facility] | | | INTERVAL | | | | | | (CORRECTED) | | | | | + + + + + + | QRS AXIS | -54 | degrees | [facility] | | + + + + + + | T AXIS | 90 | degrees | [facility] | | + + + + + + | INTERPRETAT | Poor data quality, | | [facility] | | | ION TEXT | interpretation may be | | | | | | adversely affectedAtrial | | | | | | fibrillation with rapid | | | | | | ventricular | | | | | | responseLeft anterior | | | | | | fascicular | | | | | | blockAnteroseptal | | | | | | infarct , age | | | | | | undeterminedT wave | | | | | | abnormality, consider | | | | | | lateral ischemiaAbnormal | | | | | | ECGEKG of 03-NOV-2018 | | | | | | 09:08, (Unconfirmed)Does | | | | | | not load into MUSE for | | | | | | comparisonConfirmed by | | | | | | SUSANNAH CUI MD ([id number]) | | | | | | on 11/03/2018 2:03:08 PM | | | | + + + + + + + + | Specimen | + + | | + + + + + | Narrative | Performed At | + + + | | | + + + + +---------+ + + | Performing | Address | City/State/Zipcode | Phone Number | | Organization | | | | + +---------+ + + | [facility] | | | | + +---------+ + + ECHO Complete (11/03/2018 8:22 PST) + +---------+ + + + | Component | Value | Ref Range | Performed | Pathologist | | | | | At | Signature | + +---------+ + + + | BASELINE | 127/107 | mmHg | [facility] | | | BLOOD | | | | | | PRESSURE | | | | | + +---------+ + + + | Patient | 199 lbs | | [facility] | | | Weight | | | | | | (lbs) | | | | | + +---------+ + + + | Patient | 69 in | | [facility] | | | Height | | | | | + +---------+ + + + | LVIDd | 6.04 | cm | [facility] | | + +---------+ + + + | FS | 19 | % | [facility] | | + +---------+ + + + | LA volume | 88.6 | mL | [facility] | | + +---------+ + + + | Ascending | 5.32 | cm | [facility] | | | aorta | | | | | + +---------+ + + + | Aortic arch | 2.42 | cm | [facility] | | + +---------+ + + + | AV mean | 2.61 | mmHg | [facility] | | | gradient | | | | | + +---------+ + + + | LVOT peak | 99.24 | cm/s | [facility] | | | yesenia | | | | | + +---------+ + + + | LVOT peak | 17.07 | cm | [facility] | | | VTI | | | | | + +---------+ + + + | AV VTI | 16.37 | cm | [facility] | | + +---------+ + + + | LA Volume | 43 | mL/m2 | [facility] | | | Index | | | | | + +---------+ + + + | AV LVOT | 3.94 | mmHg | [facility] | | | Peak | | | | | | Gradient | | | | | + +---------+ + + + | AV LVOT | 2.54 | mmHg | [facility] | | | Mean | | | | | | Gradient | | | | | + +---------+ + + + | LV | 8.69 | cm | [facility] | | | Diastolic | | | | | | Length 4C | | | | | + +---------+ + + + | LV Systolic | 27.72 | cm2 | [facility] | | | Area PSAX | | | | | + +---------+ + + + | RV | 3.19 | cm | [facility] | | | Diastolic | | | | | | Basal | | | | | | Diameter | | | | | + +---------+ + + + | LV | 24 | % | [facility] | | | Rivas's | | | | | | Biplane EF | | | | | + +---------+ + + + | AV | 78.73 | msec | [facility] | | | Acceleratio | | | | | | n Time | | | | | + +---------+ + + + | LV ED | 97.45 | ml | [facility] | | | Volume | | | | | | (Rivas's) | | | | | + +---------+ + + + | LV ED | 47 | ml/m2 | [facility] | | | Volume | | | | | | Index | | | | | + +---------+ + + + | LV ES | 74.28 | ml | [facility] | | | Volume | | | | | + +---------+ + + + | LVOT Mean | 76.27 | cm/s | [facility] | | | Velocity | | | | | + +---------+ + + + | AV Mean | 74.55 | cm/s | [facility] | | | Velocity | | | | | + +---------+ + + + | RA Area | 34.01 | cm2 | [facility] | | + +---------+ + + + | LA/Aorta | 0.75 | | [facility] | | | Ratio | | | | | + +---------+ + + + | LA Area | 25.22 | cm2 | [facility] | | + +---------+ + + + | LA Major | 0.1637 | cm | [facility] | | + +---------+ + + + | LV ES | 36 | ml/m2 | [facility] | | | Volume | | | | | | Index | | | | | + +---------+ + + + | LV Area | 31.61 | cm2 | [facility] | | | Diastolic | | | | | + +---------+ + + + | Heart Rate | 98 | | [facility] | | + +---------+ + + + | Aortic Root | 5.21 | cm | [facility] | | | Diameter | | | | | + +---------+ + + + | IVS | 1.06 | cm | [facility] | | | Diastolic | | | | | | Thickness | | | | | | MM | | | | | + +---------+ + + + | LVPW | 0.94 | cm | [facility] | | | Diastolic | | | | | | Thickness | | | | | | MM | | | | | + +---------+ + + + | IVS | 1.4 | cm | [facility] | | | Systolic | | | | | | Thickness | | | | | | MM | | | | | + +---------+ + + + | LV Systolic | 4.87 | cm | [facility] | | | Diameter | | | | | | MM | | | | | + +---------+ + + + | LVPW | 1.25 | cm | [facility] | | | Systolic | | | | | | Thickness | | | | | | MM | | | | | + +---------+ + + + | AV Cusp | 2.15 | cm | [facility] | | | Seperation | | | | | | MM | | | | | + +---------+ + + + | LA Systolic | 3.93 | cm | [facility] | | | Diameter | | | | | | MM | | | | | + +---------+ + + + | TAPSE | 1.38 | cm | [facility] | | + +---------+ + + + | LVEF-TTE | 20 | % | [facility] | | | TRANSTHORAC | | | | | | IC ECHO | | | | | + +---------+ + + + | RA PRESSURE | 8 | mmHg | [facility] | | + +---------+ + + + + + | Specimen | + + | | + + + + + | Narrative | Performed At | + + + | 1. Mild | [facility] | | left ventricular chamber dilatation with normal wall thickness 2. | | | Severe global left ventricular systolic dysfunction 3. Mild to | | | moderate right ventricular chamber dilatation with reduced systolic | | | function 4. Biatrial chamber enlargement 5. Mild aortic root | | | dilatation with mild aortic valve regurgitation 6. Mild mitral valve | | | regurgitation | | | | | + + + + +---------+ + + | Performing | Address | City/State/Zipcode | Phone Number | | Organization | | | | + +---------+ + + | [facility] | | | | + +---------+ + + Lipid Panel (11/03/2018 6:09 PST) + +--------+ + + + | Component | Value | Ref Range | Performed | Pathologist | | | | | At | Signature | + +--------+ + + + | Triglycerid | 68 | <=150 mg/dL | [facility] | | | es | | | [facility] | | | [facility] | [facility] | | | | [facility] - | | | | | | LABORATORY | | + +--------+ + + + | Cholesterol | 166 | <=200 mg/dL | [facility] | | | | | | [facility] | | | | | | [facility] | | | | | | [facility] - | | | | | | LABORATORY | | + +--------+ + + + | HDL | 74 (H) | 40 - 60 mg/dL | [facility] | | | | | | [facility] | | | | | | [facility] | | | | | | C[facility] - | | | | | | LABORATORY | | + +--------+ + + + | Chol/HDL | 2.2 | | [facility] | | | Ratio | | | [facility] | | | | | | [facility] | | | | | | [facility] - | | | | | | LABORATORY | | + +--------+ + + + | LDL, | 78 | <=130 mg/dL | [facility] | | | Calculated | | | [facility] | | | | | | [facility] | | | | | | CENTER - | | | | | | LABORATORY | | + +--------+ + + + + + | Specimen | + + | Blood | + + + + + + + | Performing | Address | City/State/Zipcode | Phone Number | | Organization | | | | + + + + + | [facility] | [address] | [place] | [phone] | | [facility] | | [address] | | | - LABORATORY | | | | + + + + + TSH (11/03/2018 6:09 PST) + +-------+ + + + | Component | Value | Ref Range | Performed | Pathologist | | | | | At | Signature | + +-------+ + + + | TSH | 2.12 | 0.55 - 4.78 | [facility] | | | | | uIU/mL | [facility] | | | | | | [facility] | | | | | | CENTER - | | | | | | LABORATORY | | + +-------+ + + + + + | Specimen | + + | Blood | + + + + + + + | Performing | Address | City/State/Zipcode | Phone Number | | Organization | | | | + + + + + | [facility] | [address] | [place] | [phone] | | [facility] | | [address] | | | - LABORATORY | | | | + + + + + B Type Natriuretic Peptide (11/03/2018 6:09 PST) + +---------+ + + + | Component | Value | Ref Range | Performed | Pathologist | | | | | At | Signature | + +---------+ + + + | BNP | 557 (H) | <100 pg/mL | [facility] | | | | | | [facility] | | | | | | [facility] | | | | | | C[facility] - | | | | | | LABORATORY | | + +---------+ + + + + + | Specimen | + + | Blood | + + + + + + + | Performing | Address | City/State/Zipcode | Phone Number | | Organization | | | | + + + + + | [facility] | [address] | [place] | [phone] | | [facility] | | [address] | | | - LABORATORY | | | | + + + + + Troponin I (11/03/2018 6:09 PST) + + + + + + | Component | Value | Ref Range | Performed | Pathologist | | | | | At | Signature | + + + + + + | Troponin I | 0.25 (H) | <0.06 ng/mL | [facility] | | | | | [facility] | [facility] | | [facility] | | | | | | [facility] - | | | | | | LABORATORY | | + + + + + + + + | Specimen | + + | Blood | + + + + + + + | Performing | Address | City/State/Zipcode | Phone Number | | Organization | | | | + + + + + | [facility] | [address] | [place] | [phone] | | [facility] | | [address] | | | - LABORATORY | | | | + + + + + Magnesium (11/03/2018 6:09 PST) + +-------+ + + + | Component | Value | Ref Range | Performed | Pathologist | | | | | At | Signature | + +-------+ + + + | Magnesium | 1.8 | 1.8 - 2.5 mg/dL | [facility] | | | | | | [facility] | | | | | | [facility] - | | | | | | LABORATORY | | + +-------+ + + + + + | Specimen | + + | Blood | + + + + + + + | Performing | Address | City/State/Zipcode | Phone Number | | Organization | | | | + + + + + | [facility] | [address] | [place] | [phone] | | [facility] | | [address] | | | - LABORATORY | | | | + + + + + Comprehensive Metabolic Panel (11/03/2018 6:09 PST) + + + + + + | Component | Value | Ref Range | Performed | Pathologist | | | | | At | Signature | + + + + + + | Na | 134 (L) | 136 - 145 | [facility] | | | | | mmol/L | [facility] | | | | | | [facility] | | | | | | CENTER - | | | | | | LABORATORY | | + + + + + + | K | 3.4 | 3.4 - 5.1 | [facility] | | | | | mmol/L | [facility] | | | | | | [facility] | | | | | | CENTER - | | | | | | LABORATORY | | + + + + + + | Cl | 96 (L) | 98 - 107 mmol/L | [facility] | | | | | | [facility] | | | | | | [facility] | | | | | | CENTER - | | | | | | LABORATORY | | + + + + + + | CO2 | 25 | 20 - 31 mmol/L | [facility] | | | | | | [facility] | | | | | | [facility] | | | | | | CENTER - | | | | | | LABORATORY | | + + + + + + | Anion Gap | 13 | 3 - 16 mmol/L | [facility] | | | | | | [facility] | | | | | | [facility] | | | | | | CENTER - | | | | | | LABORATORY | | + + + + + + | Glucose | 127 (H) | 60 - 106 mg/dL | [facility] | | | | | | [facility] | | | | | | [facility] | | | | | | CENTER - | | | | | | LABORATORY | | + + + + + + | BUN | 13 | 9 - 23 mg/dL | [facility] | | | | | | [facility] | | | | | | [facility] | | | | | | CENTER - | | | | | | LABORATORY | | + + + + + + | Creatinine | 0.63 (L) | 0.70 - 1.30 | [facility] | | | | | mg/dL | [facility] | | | | | | [facility] | | | | | | CENTER - | | | | | | LABORATORY | | + + + + + + | eGFR if not | >60 | >=60 | [facility] | | | | | mL/min/1.73m2 | [facility] | | | [facility] | | | MEDICAL | | | | | | CENTER - | | | | | | LABORATORY | | + + + + + + | Ca | 9.6 | 8.7 - 10.4 | [facility] | | | | | mg/dL | [facility] | | | | | | [facility] | | | | | | CENTER - | | | | | | LABORATORY | | + + + + + + | Albumin | 3.9 | 3.2 - 4.8 g/dL | [facility] | | | | | | [facility] | | | | | | [facility] | | | | | | CENTER - | | | | | | LABORATORY | | + + + + + + | Bilirubin | 4.2 (H) | 0.3 - 1.2 mg/dL | [facility] | | | Total | | | [facility] | | | | | | MEDICAL | | | | | | CENTER - | | | | | | LABORATORY | | + + + + + + | Total | 5.7 | 5.7 - 8.2 g/dL | [facility] | | | Protein | | | [facility] | | | | | | MEDICAL | | | | | | CENTER - | | | | | | LABORATORY | | + + + + + + | AST | 16 | 0 - 34 U/L | [facility] | | | | | | [facility] | | | | | | [facility]ICAL | | | | | | CENTER - | | | | | | LABORATORY | | + + + + + + | ALT | 32 | 10 - 49 U/L | [facility] | | | | | | [facility] | | | | | | [facility]ICAL | | | | | | CENTER - | | | | | | LABORATORY | | + + + + + + | Alkaline | 47 | 46 - 116 U/L | [facility] | | | Phosphatase | | | [facility] | | | | | | [facility] | | | | | | CENTER - | | | | | | LABORATORY | | + + + + + + | Globulin | 1.8 (L) | 2.1 - 3.8 g/dL | [facility] | | | | | | [facility] | | | | | | MEDICAL | | | | | | CENTER - | | | | | | LABORATORY | | + + + + + + | Albumin/Apryl | 2.2 (H) | 0.8 - 1.9 | [facility] | | | bulin Ratio | | | [facility] | | | | | | [facility]ICAL | | | | | | CENTER - | | | | | | LABORATORY | | + + + + + + | BUN/Creatin | 20.6 | | [facility] | | | ine Ratio | | | [facility] | | | | | | MEDICAL | | | | | | CENTER - | | | | | | LABORATORY | | + + + + + + + + | Specimen | + + | Blood | + + + + + + + | Performing | Address | City/State/Zipcode | Phone Number | | Organization | | | | + + + + + | [facility] | [address] | [place] | [phone] | | [facility] | | [address] | | | - LABORATORY | | | | + + + + + CBC with Differential (11/03/2018 6:09 PST) + + + + + + | Component | Value | Ref Range | Performed | Pathologist | | | | | At | Signature | + + + + + + | WBC | 10.4 | 4.0 - 11.0 K/uL | [facility] | | | | | | [facility] | | | | | | [facility] | | | | | | CENTER - | | | | | | LABORATORY | | + + + + + + | RBC | 4.52 | 4.30 - 5.70 | [facility] | | | | | M/uL | [facility] | | | | | | MEDICAL | | | | | | CENTER - | | | | | | LABORATORY | | + + + + + + | Hemoglobin | 14.8 | 13.5 - 18.0 | [facility] | | | | | g/dL | [facility] | | | | | | MEDICAL | | | | | | CENTER - | | | | | | LABORATORY | | + + + + + + | Hematocrit | 43.4 | 40.0 - 51.0 % | [facility] | | | | | | [facility] | | | | | | [facility] | | | | | | CENTER - | | | | | | LABORATORY | | + + + + + + | MCV | 96.0 | 83.0 - 101.0 fL | [facility] | | | | | | [facility] | | | | | | [facility] | | | | | | CENTER - | | | | | | LABORATORY | | + + + + + + | MCH | 32.7 | 28.0 - 35.0 pg | [facility] | | | | | | [facility] | | | | | | [facility] | | | | | | CENTER - | | | | | | LABORATORY | | + + + + + + | MCHC | 34.1 | 32.0 - 36.0 | [facility] | | | | | g/dL | [facility] | | | | | | [facility] | | | | | | CENTER - | | | | | | LABORATORY | | + + + + + + | RDW-CV | 14.6 | <15.0 % | [facility] | | | | | | [facility] | | | | | | [facility] | | | | | | CENTER - | | | | | | LABORATORY | | + + + + + + | RDW-SD | 51.7 (H) | 35.1 - 46.3 fL | [facility] | | | | | | [facility] | | | | | | [facility] | | | | | | CENTER - | | | | | | LABORATORY | | + + + + + + | Platelet | 186 | 140 - 440 K/uL | [facility] | | | Count | | | [facility] | | | | | | [facility] | | | | | | CENTER - | | | | | | LABORATORY | | + + + + + + | MPV | 10.4 | 6.5 - 12.4 fL | [facility] | | | | | | [facility] | | | | | | [facility]ICAL | | | | | | CENTER - | | | | | | LABORATORY | | + + + + + + | % | 77.4 | 45.0 - 82.0 % | [facility] | | | Neutrophils | | | [facility] | | | | | | [facility] | | | | | | CENTER - | | | | | | LABORATORY | | + + + + + + | % | 10.9 (L) | 20.0 - 45.0 % | [facility] | | | Lymphocytes | | | [facility] | | | | | | [facility]ICAL | | | | | | CENTER - | | | | | | LABORATORY | | + + + + + + | % Monocytes | 10.5 | 4.0 - 12.0 % | [facility] | | | | | | [facility] | | | | | | [facility] | | | | | | CENTER - | | | | | | LABORATORY | | + + + + + + | % | 0.2 | 0.0 - 5.0 % | [facility] | | | Eosinophils | | | [facility] | | | | | | [facility]ICAL | | | | | | CENTER - | | | | | | LABORATORY | | + + + + + + | % Basophils | 0.5 | 0.0 - 1.0 % | [facility] | | | | | | [facility] | | | | | | [facility]ICAL | | | | | | CENTER - | | | | | | LABORATORY | | + + + + + + | % Immature | 0.5 (H)Comment: | 0.0 - 0.4 % | [facility] | | | Granulocyte | Preliminary studIes have | | [facility] | | | s | indicated the IG% | | MEDICAL | | | | and/or IG# show promise | | CENTER - | | | | as an early screen for | | LABORATORY | | | | infection. | | | | + + + + + + | Absolute | 8.07 | 1.80 - 8.50 | [facility] | | | Neutrophils | | K/uL | [facility] | | | | | | [facility]ICAL | | | | | | CENTER - | | | | | | LABORATORY | | + + + + + + | Absolute | 1.14 | 0.60 - 3.20 | [facility] | | | Lymphocytes | | K/uL | [facility] | | | | | | [facility] | | | | | | CENTER - | | | | | | LABORATORY | | + + + + + + | Absolute | 1.09 (H) | 0.00 - 1.00 | [facility] | | | Monocytes | | K/uL | [facility] | | | | | | MEDICAL | | | | | | CENTER - | | | | | | LABORATORY | | + + + + + + | Absolute | 0.02 | 0.00 - 0.40 | [facility] | | | Eosinophils | | K/uL | [facility] | | | | | | [facility] | | | | | | CENTER - | | | | | | LABORATORY | | + + + + + + | Absolute | 0.05 | 0.00 - 0.10 | [facility] | | | Basophils | | K/uL | [facility] | | | | | | MEDICAL | | | | | | CENTER - | | | | | | LABORATORY | | + + + + + + | Absolute | 0.05 (H) | 0.00 - 0.03 | [facility] | | | Immature | | K/uL | [facility] | | | Granulocyte | | | MEDICAL | | | s | | | CENTER - | | | | | | LABORATORY | | + + + + + + | % nRBC | 0 | 0 - 2 per 100 | [facility] | | | | | WBC's | [facility] | | | | | | MEDICAL | | | | | | CENTER - | | | | | | LABORATORY | | + + + + + + | Absolute | 0.00 | 0.00 - 0.01 | [facility] | | | nRBC | | K/uL | [facility] | | | | | | MEDICAL | | | | | | CENTER - | | | | | | LABORATORY | | + + + + + + + + | Specimen | + + | Blood | + + + + + + + | Performing | Address | City/State/Zipcode | Phone Number | | Organization | | | | + + + + + | [facility] | [address] | [place] | [phone] | | [facility] | | [address] | | | - LABORATORY | | | | + + + + + Troponin I (11/03/2018 0:27 PST) + + + + + + | Component | Value | Ref Range | Performed | Pathologist | | | | | At | Signature | + + + + + + | Troponin I | 0.31 (H) | <0.06 ng/mL | [facility] | | | | | | [facility] | | | | | | [facility] | | | | | | CENTER - | | | | | | LABORATORY | | + + + + + + + + | Specimen | + + | Blood | + + + + + + + | Performing | Address | City/State/Zipcode | Phone Number | | Organization | | | | + + + + + | [facility] | [address] | [place] | [phone] | | [facility] | | [address] | | | - LABORATORY | | | | + + + + + Drugs of Abuse, Screen, Urine (11/03/2018 0:22 PST) + + + + + + | Component | Value | Ref Range | Performed | Pathologist | | | | | At | Signature | + + + + + + | Amphetamine | Negative | Negative | [facility] | | | Screen, | | | [facility] | | | Urine | | | MEDICAL | | | | | | CENTER - | | | | | | LABORATORY | | + + + + + + | Barbiturate | Negative | Negative | [facility] | | | s Screen, | | | [facility] | | | Urine | | | MEDICAL | | | | | | CENTER - | | | | | | LABORATORY | | + + + + + + | Benzodiazep | Negative | Negative | [facility] | | | sirisha | | | [facility] | | | Screen, | | | MEDICAL | | | Urine | | | CENTER - | | | | | | LABORATORY | | + + + + + + | Cannabinoid | Positive (A) | Negative | [facility] | | | s Screen, | | | [facility] | | | Urine | | | MEDICAL | | | | | | CENTER - | | | | | | LABORATORY | | + + + + + + | Cocaine | Negative | Negative | [facility] | | | Screen, | | | [facility] | | | Urine | | | MEDICAL | | | | | | CENTER - | | | | | | LABORATORY | | + + + + + + | Methadone | Negative | Negative | [facility] | | | Screen, | | | [facility] | | | Urine | | | MEDICAL | | | | | | CENTER - | | | | | | LABORATORY | | + + + + + + | Opiates | Positive (A) | Negative | [facility] | | | Screen, | | | [facility] | | | Urine | | | MEDICAL | | | | | | CENTER - | | | | | | LABORATORY | | + + + + + + + + | Specimen | + + | Urine | + + + + + + + | Performing | Address | City/State/Zipcode | Phone Number | | Organization | | | | + + + + + | [facility] | [address] | [place] | [phone] | | [facility] | | [address] | | | - LABORATORY | | | | + + + + + Troponin I (11/02/2018 18:33 PST) + + + + + + | Component | Value | Ref Range | Performed | Pathologist | | | | | At | Signature | + + + + + + | Troponin I | 0.29 (H) | <0.06 ng/mL | [facility] | | | | | | [facility] | | | | | | [facility]ICAL | | | | | | CENTER - | | | | | | LABORATORY | | + + + + + + + + | Specimen | + + | Blood | + + + + + + + | Performing | Address | City/State/Zipcode | Phone Number | | Organization | | | | + + + + + | [facility] | [address] | [place] | [phone] | | [facility] | | [address] | | | - LABORATORY | | | | + + + + + Culture, MRSA (11/02/2018 18:00 PST) + + + + + + | Component | Value | Ref Range | Performed | Pathologist | | | | | At | Signature | + + + + + + | Culture | Negative for MRSA by | | [facility] | | | | chromogenic agar method | | [facility] | | | | | | [facility]ICAL | | | | | | CENTER - | | | | | | LABORATORY | | + + + + + + + + | Specimen | + + | Tissue | + + + + + + + | Performing | Address | City/State/Zipcode | Phone Number | | Organization | | | | + + + + + | [facility] | [address] | [place] | [phone] | | [facility] | | [address] | | | - LABORATORY | | | | + + + + + IMAGING REPORT - EXTERNAL SCAN (11/02/2018 0:00 PST) + + + | Narrative | Performed At | + + + | Ordered by an | | | unspecified provider. | | + + + IMAGING REPORT - EXTERNAL SCAN (11/02/2018 0:00 PST) + + + | Narrative | Performed At | + + + | Ordered by an | | | unspecified provider. | | + + + IMAGING REPORT - EXTERNAL SCAN (11/02/2018 0:00 PST) + + + | Narrative | Performed At | + + + | Ordered by an | | | unspecified provider. | | + + + ECG - EXTERNAL SCAN (11/02/2018 0:00 PST) + + + | Narrative | Performed At | + + + | Ordered by an | | | unspecified provider. | | + + + documented in this encounter Visit Diagnoses + + | Diagnosis | + + | Atrial fibrillation, unspecified type ([facility]) | + + | Atrial fibrillation with RVR ([facility]) Atrial fibrillation | + + | Panlobular emphysema ([facility]) Other emphysema | + + | Troponin level elevated Other abnormal blood chemistry | + + | Gastroesophageal reflux disease, esophagitis presence not specified | + + | Cerebrovascular accident (CVA) due to thrombosis of cerebral artery (HCC) | + + | Cardiogenic shock (HCC) Cardiogenic shock | + + documented in this encounter Administered Medications + +--------+ +-------+------+------+ | Medication Order | MAR | Action | Dose | Rate | Site | | | Action | Date | | | | + +--------+ +-------+------+------+ | albuterol-ipratropium 2.5-0.5 | Given | 11/04/19 | 3 mLs | | | | mg/3 mL nebulizer solution 3 mL | | 19 16:10 | | | | | 3 mL, Nebulization, RT EVERY 6 | | PST | | | | | HOURS PRN, Shortness of Breath, | | | | | | | Starting 11/02/18 at 1819 | | | | | | + +--------+ +-------+------+------+ +-------+ +-------+---+---+ | Given | 11/04/19 | 3 mLs | | | | | 19 11:42 | | | | | | PST | | | | +-------+ +-------+---+---+ | Given | 11/04/19 | 3 mLs | | | | | 19 7:18 | | | | | | PST | | | | +-------+ +-------+---+---+ +---+---+ | | | +---+---+ + +---------+ + +-------+---+ | amiodarone in dextrose | New Bag | 11/04/19 | 1 mg/min | 33.3 | | | (NEXTERONE) 1.8 mg/mL infusion | 11:41 | | mL/hr | | | mg/min (33.3333 mL/hr, rounded | | PST | | | | | to 33.3 mL/hr), at 33.3 mL/hr, | | | | | | | Intravenous, TITRATED, Starting | | | | | | | [place] 11/03/18 at 1100, For 6 hours, | | | | | | | Use 0.2 micron filter for | | | | | | | administration., | | | | | | + +---------+ + +-------+---+ +---+---+ | | | +---+---+ + +-------+ +--------+-------+---+ | amiodarone in dextrose | Given | 11/04/19 | 150 mg | 600 | | | (NEXTERONE) 150 mg/100 mL bolus | | 19 11:18 | | mL/hr | | | 150 mg 150 mg, Intravenous, | | PST | | | | | Administer over 10 Minutes, ONCE, | | | | | | | 11/03/18 at 1100, For 1 dose, | | | | | | | For Rhythm Control Use 0.2 micron | | | | | | | filter for administration., | | | | | | + +-------+ +--------+-------+---+ +---+---+ | | | +---+---+ + +-------+ +------+---+---+ | apixaban (ELIQUIS) tablet 5 mg | Given | 11/04/19 | 5 mg | | | | 5 mg, Oral, 2 TIMES DAILY, First | | 19 8:54 | | | | | dose on 11/03/18 at 0900 | | PST | | | | + +-------+ +------+---+---+ +---+---+ | | | +---+---+ + +-------+ +-------+---+---+ | aspirin EC tablet 81 mg 81 mg, | Given | 11/04/19 | 81 mg | | | | Oral, DAILY, First dose on Sun | | 19 8:46 | | | | | 11/03/18 at 0900, Do not cut or | | PST | | | | | crush., | | | | | | + +-------+ +-------+---+---+ +---+---+ | | | +---+---+ + +-------+ +------+---+---+ | atropine 0.1 mg/mL syringe 1 mg | Given | 11/04/19 | 1 mg | | | | 1 mg, Intravenous, ONCE, Sun | | 19 17:15 | | | | | 11/03/18 at 1715, For 1 dose | | PST | | | | + +-------+ +------+---+---+ +---+---+ | | | +---+---+ + +-------+ +-------+---+---+ | carvedilol (COREG) tablet 25 mg | Given | 11/04/19 | 25 mg | | | | 25 mg, Oral, ONCE, 3/3/19 | | 19 10:12 | | | | | at 1000, For 1 dose | | PST | | | | + +-------+ +-------+---+---+ +---+---+ | | | +---+---+ + +---------+ +-----+-------+---+ | cefTRIAXone (ROCEPHIN) 1 g in | New Bag | 11/04/19 | 1 g | 100 | | | sodium chloride 0.9% 50 mL IVPB | | 19 16:30 | | mL/hr | | | 1 g, Intravenous, Administer over | | PST | | | | | 30 Minutes, EVERY 24 HOURS | | | | | | | INTERVAL, First dose on Sun | | | | | | | 11/03/18 at 1500, Activate system | | | | | | | and mix before use., Indications: | | | | | | | Community Acquired Pneumonia | | | | | | + +---------+ +-----+-------+---+ +---+---+ | | | +---+---+ + +---------+ + + +---+ | dilTIAZem (CARDIZEM) 1 mg/mL in | New Bag | 11/04/19 | 15 mg/hr | 15 mL/hr | | | sodium chloride 0.9% 125 mL | | 19 8:50 | | | | | infusion 5-15 mg/hr (5-15 | | PST | | | | | mL/hr), at 5-15 mL/hr, | | | | | | | Intravenous, TITRATED, Starting | | | | | | | 11/02/18 at 1845, Titration | | | | | | | Instruction: See below, Goal: HR | | | | | | | less than 100, Initial dose: 5 | | | | | | | mg/hr, Increase rate by: 5 mg/hr | | | | | | | every 15 minutes., Decrease rate | | | | | | | by: 5 mg/hr every 15 minutes., *: | | | | | | | Titrate drug per order as | | | | | | | tolerated. Titration may vary | | | | | | | based on the patient | | | | | | | | | | | | | | s critical condition. | | | | | | + +---------+ + + +---+ + + + + +---+ | Rate/Dose Change | 11/04/19 | 15 mg/hr | 15 mL/hr | | | | 19 6:00 | | | | | | PST | | | | + + + + +---+ | Rate/Dose Change | 11/04/19 | 10 mg/hr | 10 mL/hr | | | | 19 0:20 | | | | | | PST | | | | + + + + +---+ +---+---+ | | | +---+---+ + + + + + +---+ | DOPamine in dextrose 1,600 | Rate/Dos | 11/04/19 | 10 | 34 mL/hr | | | mcg/mL infusion 5 mcg/kg/min | e Change | 19 20:56 | mcg/kg/m | | | | 90.7 kg (17.0063 mL/hr, rounded | | PST | in | | | | to 17 mL/hr), Intravenous, at 17 | | | | | | | mL/hr, TITRATED, Starting Sun | | | | | | | 11/03/18 at 1730, Titration | | | | | | | Instruction: See below, Goal: SBP | | | | | | | greater than 90, Initial dose: 5 | | | | | | | mcg/kg/min, Increase rate by: | | | | | | | 2.5 mcg/kg/min every 5 minutes., | | | | | | | Decrease rate by: 2.5 mcg/kg/min | | | | | | | every 5 minutes., *: Titrate drug | | | | | | | per order as tolerated. | | | | | | | Titration may vary based on the | | | | | | | patient | | | | | | | | | | | | | | s critical condition. | | | | | | + + + + + +---+ + + + +-------+---+ | Rate/Dose Change | 11/04/19 | 12 | 40.8 | | | | 19 20:32 | mcg/kg/m | mL/hr | | | | PST | in | | | + + + +-------+---+ | Rate/Dose Change | 11/04/19 | 14 | 47.6 | | | | 19 20:26 | mcg/kg/m | mL/hr | | | | PST | in | | | + + + +-------+---+ +---+---+ | | | +---+---+ + +-------+ +-------+---+ + | enoxaparin (LOVENOX) 40 mg/0.4 | Given | 11/04/19 | 40 mg | | Abdomen- | | mL injection 40 mg 40 mg, | | 19 16:44 | | | LUQ | | Subcutaneous, EVERY 24 HOURS | | PST | | | | | INTERVAL, First dose on Sun | | | | | | | 3/3/19 at 1600 | | | | | | + +-------+ +-------+---+ + +---+---+ | | | +---+---+ + + + +---------+-------+---+ | EPINEPHrine 16 mcg/mL in sodium | Rate/Dos | 11/04/19 | 5 | 18.8 | | | chloride 0.9% 250 mL infusion | e Change | 19 19:24 | mcg/min | mL/hr | | | 1-10 mcg/min (3.75-37.5 mL/hr, | | PST | | | | | rounded to 3.8-37.5 mL/hr), at | | | | | | | 3.8-37.5 mL/hr, Intravenous, | | | | | | | TITRATED, Starting 11/03/18 at | | | | | | | 1900, Titration Instruction: See | | | | | | | below, Goal: SBP greater than 90, | | | | | | | Initial dose: 1 mcg/min, | | | | | | | Increase rate by: 1 mcg/min every | | | | | | | 5 minutes., Decrease rate by: 1 | | | | | | | mcg/min every 5 minutes., *: | | | | | | | Titrate drug per order as | | | | | | | tolerated. Titration may vary | | | | | | | based on the patient | | | | | | | | | | | | | | s critical condition. | | | | | | + + + +---------+-------+---+ +---------+ +---------+-------+---+ | New Bag | 11/04/19 | 1 | 3.8 | | | | 19 19:10 | mcg/min | mL/hr | | | | PST | | | | +---------+ +---------+-------+---+ +---+---+ | | | +---+---+ + +-------+ +-------+---+---+ | etomidate (AMIDATE) injection | Given | 11/04/19 | 20 mg | | | | 20 mg 20 mg, Intravenous, ONCE, | | 19 17:29 | | | | | 11/03/18 at 1845, For 1 dose | | PST | | | | + +-------+ +-------+---+---+ +---+---+ | | | +---+---+ + +-------+ +---------+---+---+ | fentaNYL (PF) injection 25-100 | Given | 11/04/19 | 100 mcg | | | | mcg 25-100 mcg, Intravenous, | | 19 21:27 | | | | | EVERY 5 MIN PRN, Pain, Starting | | PST | | | | | 11/03/18 at 1742, To maximum of | | | | | | | 400 mcg in 4 hours, | | | | | | + +-------+ +---------+---+---+ +-------+ +---------+---+---+ | Given | 11/04/19 | 100 mcg | | | | | 19 20:32 | | | | | | PST | | | | +-------+ +---------+---+---+ | Given | 11/04/19 | 50 mcg | | | | | 19 20:10 | | | | | | PST | | | | +-------+ +---------+---+---+ + +---+ | | | + +---+ | folic acid tablet 1 mg 1 mg, | | | Oral, DAILY, First dose on Sun | | | 11/03/18 at 1515, For 3 days | | + +---+ | | | + +---+ + +-------+ +-------+---+---+ | furosemide (LASIX) injection 20 | Given | 11/04/19 | 20 mg | | | | mg 20 mg, Intravenous, ONCE, | | 19 11:06 | | | | | 11/03/18 at 1100, For 1 dose | | PST | | | | + +-------+ +-------+---+---+ +---+---+ | | | +---+---+ + +-------+ +--------+---+---+ | lisinopril (PRINIVIL, ZESTRIL) | Given | 11/04/19 | 2.5 mg | | | | tablet 2.5 mg 2.5 mg, Oral, | | 19 11:22 | | | | | DAILY, First dose on 11/03/18 | | PST | | | | | at 1100 | | | | | | + +-------+ +--------+---+---+ + +---+ | | | + +---+ | LORazepam (ATIVAN) injection | | | 1-2 mg 1-2 mg, Intravenous, | | | EVERY 4 HOURS PRN, Anxiety, | | | Starting 11/03/18 at 1659 | | + +---+ | | | + +---+ | LORazepam (ATIVAN) injection | | | 1-8 mg 1-8 mg, Intravenous, | | | EVERY 15 MIN PRN, See Admin | | | Instruction, Starting 11/03/18 | | | at 1350, FOR ICU USE ONLY | | | SEE ALCOHOL WITHDRAWAL PROTOCOL - | | | ICU FOR DETAILS Give dose as | | | indicated below with each | | | reassessment CIWA <10 (RASS 0): | | | No Dose, see protocol for | | | reassessment instructions CIWA | | | 10-14 (RASS +1): 2mg - Reassess | | | in 15min CIWA 15-19 (RASS +2): | | | 3mg - Reassess in 15min CIWA | | | 20-29 (RASS +3): 4mg - Reassess | | | in 15min If CIWA >29 (RASS +4) | | | on FIRST assessment: 6mg - | | | Reassess in 15 min If CIWA >29 | | | (RASS +4) on SUBSEQUENT | | | assessment: 8mg - Reassess in 15 | | | min , | | + +---+ | | | + +---+ + +---------+ +-----+ +---+ | magnesium sulfate 2 g/50 mL | New Bag | 11/04/19 | 2 g | 25 mL/hr | | | IVPB 2 g 2 g, Intravenous, | | 19 8:46 | | | | | Administer over 120 Minutes, | | PST | | | | | ONCE, [place] 11/03/18 at 0800, For 1 | | | | | | | dose, Maximum recommended | | | | | | | infusion rate = 1 gram/hour., | | | | | | + +---------+ +-----+ +---+ +---+---+ | | | +---+---+ + + + + + +---+ | midazolam (VERSED) 1 mg/mL in | Rate/Dos | 11/04/19 | 11 mg/hr | 11 mL/hr | | | sodium chloride 0.9% 100 mL 2-15 | e Change | 19 21:20 | | | | | mg/hr (2-15 mL/hr), at 2-15 | | PST | | | | | mL/hr, Intravenous, TITRATED, | | | | | | | Starting 11/03/18 at 1830, | | | | | | | Titration Instruction: See below, | | | | | | | Goal: RASS -2 to 0, Initial | | | | | | | dose: 1 mg/hr, Increase rate by: | | | | | | | 0.5 mg/hr every 30 minutes., | | | | | | | Decrease rate by: 0.5 mg/hr every | | | | | | | 30 minutes., *: Titrate drug per | | | | | | | order as tolerated. Titration | | | | | | | may vary based on the patient | | | | | | | | | | | | | | s critical condition. | | | | | | + + + + + +---+ + + + + +---+ | Rate/Dose Change | 11/04/19 | 10 mg/hr | 10 mL/hr | | | | 19 20:40 | | | | | | PST | | | | + + + + +---+ | Rate/Dose Change | 11/04/19 | 9 mg/hr | 9 mL/hr | | | | 19 20:34 | | | | | | PST | | | | + + + + +---+ + +---+ | | | + +---+ | midazolam (VERSED) 1 mg/mL | | | injection 1-4 mg 1-4 mg, | | | Intravenous, EVERY 30 MIN PRN, | | | Anxiety, Starting 11/03/18 at | | | 1742 | | + +---+ | | | + +---+ + +---------+ +---------+--------+---+ | norepinephrine in saline | New Bag | 11/04/19 | 30 | 112.5 | | | (LEVOPHED) 16 mcg/mL infusion | | 19 21:08 | mcg/min | mL/hr | | | 1-30 mcg/min (3.75-112.5 mL/hr, | | PST | | | | | rounded to 3.8-112.5 mL/hr), at | | | | | | | 3.8-112.5 mL/hr, Intravenous, | | | | | | | TITRATED, Starting 11/03/18 at | | | | | | | 1630, Titration Instruction: See | | | | | | | below, Goal: SBP greater than 90, | | | | | | | Initial dose: 3 mcg/min., | | | | | | | Increase rate by: 2 mcg/min every | | | | | | | 5 minutes., Decrease rate by: 2 | | | | | | | mcg/min every 5 minutes., *: | | | | | | | Titrate drug per order as | | | | | | | tolerated. Titration may vary | | | | | | | based on the patient | | | | | | | | | | | | | | s critical condition. | | | | | | + +---------+ +---------+--------+---+ + + +---------+--------+---+ | Rate/Dose Change | 11/04/19 | 30 | 112.5 | | | | 19 17:30 | mcg/min | mL/hr | | | | PST | | | | + + +---------+--------+---+ | Rate/Dose Change | 11/04/19 | 25 | 93.8 | | | | 19 17:11 | mcg/min | mL/hr | | | | PST | | | | + + +---------+--------+---+ +---+---+ | | | +---+---+ + +-------+ +-------+---+---+ | pantoprazole (PROTONIX) DR | Given | 11/04/19 | 40 mg | | | | tablet 40 mg 40 mg, Oral, DAILY | | 19 8:54 | | | | | BEFORE BREAKFAST, First dose on | | PST | | | | | 11/03/18 at 0915, Do not cut or | | | | | | | crush., Indication: GERD | | | | | | + +-------+ +-------+---+---+ +---+---+ | | | +---+---+ + +-------+ +--------+---+---+ | potassium chloride (Klor-Con | Given | 11/04/19 | 40 mEq | | | | M20) ER tablet 40 mEq 40 mEq, | | 19 8:46 | | | | | Oral, ONCE, 11/03/18 at 0800, | | PST | | | | | For 1 dose | | | | | | + +-------+ +--------+---+---+ +---+---+ | | | +---+---+ + +---------+ +---------+-------+---+ | sodium chloride 0.9% (NS) bolus | New Bag | 11/04/19 | 250 mLs | 250 | | | 250 mL 250 mL, Intravenous, | | 19 14:34 | | mL/hr | | | Administer over 1 Hours, ONCE, | | PST | | | | | [place] 11/03/18 at 1445, For 1 dose | | | | | | + +---------+ +---------+-------+---+ +---+---+ | | | +---+---+ + +-------+ +--------+---+---+ | succinylcholine (ANECTINE) | Given | 11/04/19 | 100 mg | | | | injection 100 mg 100 mg, | | 19 17:30 | | | | | Intravenous, ONCE, [place] 11/03/18 at | | PST | | | | | 1730, For 1 dose, *WARNING: | | | | | | | PARALYTIC AGENT Patient must be | | | | | | | on ventilator* Keep in | | | | | | | refrigerator., | | | | | | + +-------+ +--------+---+---+ + +---+ | | | + +---+ | thiamine (VITAMIN B-1) tablet | | | 300 mg 300 mg, Oral, 3 TIMES | | | DAILY, First dose on 11/03/18 | | | at 1515, For 3 days | | + +---+ | | | + +---+ + +-------+ +-------+---+---+ | vecuronium (NORCURON) injection | Given | 11/04/19 | 10 mg | | | | 10 mg 10 mg, Intravenous, ONCE, | | 19 17:35 | | | | | 11/03/18 at 1745, For 1 dose, | | PST | | | | | Mix with 10 mL sterile water to | | | | | | | make 1 mg/mL. *WARNING: PARALYTIC | | | | | | | AGENT Patient must be on | | | | | | | ventilator*, | | | | | | + +-------+ +-------+---+---+ +---+---+ | | | +---+---+ documented in this encounter
--- OUTSIDE RECORDS SUMMARY | ~2018-12-24 | XMS | Clinical Summary ---
Demographics + + + | Address | [address] | | | [place] [address] | + + + | Home Phone | | + + + | Preferred Language | Unknown | + + + | Marital Status | Unknown | + + + | Evangelical Affiliation | Unknown | + + + | Race | Unknown | + + + | Ethnic Group | Unknown | + + + Author + + + | Author | [facility] | | | and [place] | + + + | Organization | [facility] | | | and [place] | + + + | Address | Unknown | + + + | Phone | Unavailable | + + + Support + + + + + | Name | Relationship | Address | Phone | + + + + + | Taurus Salinas | ECON | [place] | | | | | [phone] | | + + + + + | Message,Detailed | ECON | Unknown | | + + + + + Care Team Providers + +------+ + | Care Diamond Blender Name | Role | Phone | + +------+ + | Kenny Hernandez DO | PP | Unavailable | + +------+ + Allergies No Known Allergies Medications + + + +---------+------+------+-------+ | Medication | Sig | Dispensed | Refills | Star | End | Statu | | | | | | t | Date | s | | | | | | Date | | | + + + +---------+------+------+-------+ | | Take 3 mLs by | | 0 | | | Activ | | albuterol-ipratropiu | nebulization. | | | | | e | | m (DUONEB) 2.5-0.5 | | | | | | | | mg/3 mL SOLN | | | | | | | + + + +---------+------+------+-------+ | losartan (COZAAR) | Take 50 mg by mouth | | 0 | | | Activ | | 50 mg tablet | Daily. | | | | | e | + + + +---------+------+------+-------+ | hydrALAZINE | Take 25 mg by mouth. | | 0 | | | Activ | | (APRESOLINE) 25 mg | | | | | | e | | tablet | | | | | | | + + + +---------+------+------+-------+ | carvedilol (COREG) | Take 12.5 mg by | | 0 | | | Activ | | 12.5 mg tablet | mouth. | | | | | e | + + + +---------+------+------+-------+ | amLODIPine | Take 5 mg by mouth | | 0 | | | Activ | | (NORVASC) 5 mg | Daily. | | | | | e | | tablet | | | | | | | + + + +---------+------+------+-------+ | chlorproMAZINE | Take 1 tablet by | 90 | 2 | 03/0 | | Activ | | (THORAZINE) 25 mg | mouth 3 times daily. | tablet | | 9/20 | | e | | tablet | | | | 18 | | | + + + +---------+------+------+-------+ | aspirin 81 mg EC | Take 81 mg by mouth | | 0 | | | Activ | | tablet | Daily. | | | | | e | + + + +---------+------+------+-------+ Active Problems + + + | Problem | Noted Date | + + + | Atrial fibrillation with RVR | 11/03/2018 | + + + | Troponin level elevated | 11/03/2018 | + + + | Cardiogenic shock | 11/03/2018 | + + + | Cerebrovascular accident (CVA) due to thrombosis of cerebral | 11/09/2017 | | artery | | + + + | Special screening for malignant neoplasms, colon | 05/24/2017 | + + + | Elevated LFTs | 05/03/2017 | + + + | Alcohol abuse | 05/03/2017 | + + + | Dysphagia, unspecified type | 05/03/2017 | + + + | Hiccups | 05/03/2017 | + + + | Gastroesophageal reflux disease, esophagitis presence not | 05/03/2017 | | specified | | + + + | History of methamphetamine abuse | 05/03/2017 | + + + | Panlobular emphysema | 01/20/2016 | + + + | Thoracic aortic aneurysm without rupture | 01/20/2016 | + + + Encounters +--------+ + + + + | Date | Type | Specialty | Care Team | Description | +--------+ + + + + | 11/02/ | Hospital | | Arlin Chou | Atrial fibrillation, | | 2018 - | Encounter | | MD Anabel | unspecified type | | | | | Natalie Reyes MD | ([facility]); Atrial | | 11/03/ | | | | fibrillation with | | 2018 | | | | RVR ([facility]); | | | | | | Panlobular emphysema | | | | | | ([facility]); Troponin | | | | | | level elevated; | | | | | | Gastroesophageal | | | | | | reflux disease, | | | | | | esophagitis presence | | | | | | not specified | +--------+ + + + + +---+ + | | Discharge | | | Summary - | | | Eric, | | | MD Natalie - | | | 11/03/2018 | | | 18:47 PST | | | Formatting | | | of this | | | note might | | | be | | | different | | | from the | | | original.[place] | [facility] | | | [facility] [place] | | | DISCHARGE | | | SUMMARYPt. | | | Name/Age/DO | | | B: Taurus | | | Ricci Domínguez | | | 53 y.o. | | | 1965 | | | | | | Medical | | | Record | | | Number: | | | | | | [id number] | | | Date of | | | Admission: | | | 11/02/2018 | | | Date | | | of | | | Discharge: | | | | | | 11/03/2018Adm | | | itting | | | Physician: | | | Arlin | | | Anabel | | | MD José Antonio | | | Primary | | | Care | | | Provider: | | | Kenny E. | | | David, | | | DODischargi | | | ng | | | Physician: | | | Natalie M. | | | MD Eric | | | | | | DISCHARGE | | | DIAGNOSES: | | | Active | | | Hospital | | | Problems | | | Diagnosis | | | | | | Atrial | | | fibrillatio | | | n with RVR | | | | | | Troponin | | | level | | | elevated | | | | | | Cardiogenic | | | shock | | | | | | Cerebrovasc | | | ular | | | accident | | | (CVA) due | | | to | | | thrombosis | | | of cerebral | | | artery | | | | | | Panlobular | | | emphysema | | | Resolved | | | Hospital | | | Problems | | | Diagnosis | | | No resolved | | | problems | | | to display. | | | HOSPITAL | | | COURSE: | | | Please | | | refer to | | | the H&P for | | | full | | | details and | | | the most | | | recent | | | rounding | | | rounding | | | (progress) | | | note.53 yo | | | M with | | | history of | | | COPD, CVA, | | | hypertensio | | | n who | | | presented | | | to OSH with | | | epigastric | | | pain | | | radiating | | | to the | | | chest found | | | to have | | | new a fib | | | with RVR | | | and mild | | | troponin | | | elevation. | | | #Shock, | | | suspected | | | cardiogenic | | | Patient | | | developed | | | worsening | | | shock 3/3 | | | requiring | | | norepinephr | | | ine and | | | dopamine | | | for | | | hemodynamic | | | support. | | | Decompensat | | | ed rather | | | rapidly | | | this | | | afternoon, | | | with | | | notable | | | bradycardia | | | down to | | | the high | | | 30s/low 40s | | | and | | | concomitant | | | | | | hypotension | | | off | | | rate/rhythm | | | | | | controlling | | | | | | medications | | | . Intubated | | | for airway | | | | | | protection. | | | Was | | | briefly | | | transcutane | | | ously paced | | | but this | | | was | | | discontinue | | | d and | | | patient was | | | noted to | | | be back in | | | a fib with | | | rates | | | 90s-100s. | | | Did add low | | | dose epi | | | per Dr | | | [facility]'s | | | request | | | prior to | | | transfer. | | | Suspect | | | patient may | | | have | | | developed | | | worsening | | | cardiogenic | | | shock in | | | the setting | | | of | | | receiving | | | diltiazem, | | | in the | | | setting of | | | severe | | | cardiomyopa | | | thy. | | | Considered | | | sepsis and | | | did start | | | empiric | | | ceftriaxone | | | with chest | | | x-ray | | | showing | | | basilar | | | reticular | | | opacity and | | | WBC mildly | | | elevated | | | but this is | | | most | | | likely | | | pulmonary | | | edema. | | | Patient was | | | afebrile | | | with no | | | cough or | | | fever prior | | | to his | | | decompensat | | | ion. | | | #Biventricu | | | lar | | | congestive | | | heart | | | failureEcho | | | here | | | showed EF | | | 20% with | | | evidence | | | also of | | | reduced | | | right heart | | | systolic | | | function. | | | Prior echo | | | in 2016 | | | with normal | | | EF. | | | Patient was | | | seen by | | | [facility] | | | Cardiology | | | in March | | | 2018 and | | | had nuclear | | | medicine | | | scan at | | | that time | | | but I | | | cannot see | | | the results | | | in our | | | EMR. | | | Patient | | | thinks the | | | study was | | | negative. | | | D/w | | | Cardiology | | | here. No | | | e/o | | | ischemia on | | | ECGs that | | | were | | | obtained | | | 11/03. | | | Patient | | | does have a | | | history of | | | meth use | | | and heavy | | | daily | | | alcohol | | | use. UDS | | | here | | | positive | | | for THC and | | | opiates. | | | #A fib with | | | RVRNew | | | diagnosis. | | | Patient was | | | started on | | | diltiazem | | | at OSH | | | which was | | | discontinue | | | d after | | | echo | | | resulted | | | this | | | morning | | | showing | | | severely | | | decreased | | | LVEF. | | | Switched to | | | amio with | | | initial | | | improvement | | | in rate | | | but patient | | | developed | | | worsening | | | shock | | | prompting | | | discontinua | | | tion of | | | amiodarone | | | and | | | initiation | | | of | | | pressors. | | | Remains in | | | a fib | | | currently. | | | TSH within | | | normal | | | limits. | | | #Respirator | | | y | | | failure2/2 | | | worsening | | | shock as | | | above. On | | | mechanical | | | ventilation | | | . Chest XR | | | shows ETT | | | above the | | | level of | | | the sanjay | | | and OG tube | | | in place. | | | #Hepatic | | | dysfunction | | | Patient has | | | a | | | longstandin | | | g history | | | of heavy | | | alcohol | | | use. INR | | | 1.5 here. | | | LFTs | | | unremarkabl | | | e. US | | | abdomen | | | ordered for | | | further | | | evaluation | | | but not | | | obtained by | | | time of | | | transfer. | | | Patient had | | | been | | | referred to | | | outpatient | | | GI in the | | | past but | | | did not | | | follow up | | | with | | | bloodwork | | | or US at | | | that time. | | | #AKILikely | | | 2/2 shock. | | | #COPDPatien | | | t does not | | | appear to | | | be in COPD | | | exacerbatio | | | n, no | | | significant | | | wheezing | | | noted on | | | exam. | | | Suspect | | | respiratory | | | | | | insufficien | | | cy is 2/2 | | | cardiac | | | status. | | | #Heavy | | | alcohol | | | usePatient | | | reports | | | daily use. | | | When seen | | | by | | | Cardiology | | | in March, | | | was | | | drinking a | | | fifth of | | | whiskey | | | daily. | | | Maintained | | | on CIWA | | | here. | | | Patient has | | | RUE PICC | | | line in | | | placeApprec | | | iate Dr | | | [facility] | | | graciously | | | accepting | | | patient for | | | transfer | | | to [facility] | | | for higher | | | LOC.DISCHAR | | | GE | | | MEDICATIONS | | | : N/A as | | | patient is | | | transferrin | | | g to OSH | | | Discharge | | | Medications | | | Unchanged | | | | | | Medications | | | Details | | | | | | albuterol-i | | | pratropium | | | 2.5-0.5 | | | mg/3 mL | | | Soln Take 3 | | | mLs by | | | nebulizatio | | | n. | | | amLODIPine | | | 5 mg tablet | | | Take 5 mg | | | by mouth | | | Daily.aka: | | | NORVASC | | | aspirin 81 | | | mg EC | | | tablet Take | | | 81 mg by | | | mouth | | | Daily. | | | carvedilol | | | 12.5 mg | | | tablet Take | | | 12.5 mg by | | | mouth.aka: | | | COREG | | | chlorproMAZ | | | INE 25 mg | | | tablet Take | | | 1 tablet | | | by mouth 3 | | | times | | | daily.aka: | | | THORAZINE | | | hydrALAZINE | | | 25 mg | | | tablet Take | | | 25 mg by | | | mouth.aka: | | | APRESOLINE | | | losartan | | | 50 mg | | | tablet Take | | | 50 mg by | | | mouth | | | Daily.aka: | | | COZAAR | | | Most recent | | | weight: | | | Input and | | | output for | | | last 24hrs: | | | Wt | | | Readings | | | from Last 1 | | | | | | Encounters: | | | 03/03/19 | | | 90.7 kg | | | (199 lb | | | 15.3 oz) | | | I/O last 24 | | | Hours:In: | | | 147 | | | [I.V.:147]O | | | ut: 160 | | | [Urine:160] | | | Vitals | | | Ranges:Temp | | | : [36.2 | | | C (97.2 | | | F)-36.6 | | | C (97.9 | | | F)] 36.6 | | | C (97.9 | | | F)Pulse: | | | [33-113] | | | 105Resp: | | | [11-39] | | | 20BP: | | | (72-150)/(5 | | | 3-114) | | | 110/83Vital | | | s:Temp: | | | 36.6 C | | | (97.9 F) | | | BP: | | | 110/83 | | | Pulse: | | | 105 | | | Resp: 20 | | | SpO2: 97 | | | %SpO2 97 % | | | on | | | mechanical | | | ventilation | | | at flow | | | rate | | | 80L/minPHYS | | | ICAL EXAM: | | | Patient | | | seen and | | | examined by | | | me on | | | 11/03/18Gen: | | | clammy, ill | | | appearing, | | | on | | | mechanical | | | ventilation | | | CV: | | | IIRRPulm: | | | diminished | | | breath | | | sounds at | | | RLBExt: no | | | edema, | | | distal | | | pulses | | | faint but | | | intact | | | PROCEDURES | | | AND | | | CONSULTS: | | | Procedures: | | | | | | intubationC | | | onsults: | | | nonePENDING | | | RESULTS: | | | Blood | | | cultures | | | 11/03 | | | DISPOSITION | | | AND | | | DISCHARGE | | | INSTRUCTION | | | S: Patient | | | is | | | transferrin | | | g to [facility] | | | for higher | | | level of | | | care, Dr | | | [facility] | | | graciously | | | accepted | | | patient | | | Condition: | | | critically | | | ill Diet: | | | NPOGreater | | | than 30 | | | minutes | | | were spent | | | on | | | discharge | | | and | | | coordinatio | | | n of | | | post-hospit | | | al | | | care.Electr | | | onically | | | signed by: | | | Natalie Bill | | | MD Eric, | | | 11/03/2018 | | | 18:47 | | | [place] | | | [facility] | | | [place] | | | jose signed | | | by Natalie | | | MD Eric | | | at | | | 11/03/2018 | | | 19:05 PST | +---+ + from Last 3 Months Family History + + +------+ + | [...] 11/03/2018730 PST | + + + + Plan of Treatment + + + + + | Health [...] | Vaccine: | | | | | Pneumococcal 19-64 | 2 | | | | (PPSV23 only) Medium | | | | | Risk (1 of 1 - | | | | | PPSV23) | | | | + + + + + | Vaccine: Zoster (1 | | | | | of 2) | 3 | | | + + + + + | Statin Therapy | | | | | (optimal intensity) | 6 | | | + + + + + | Lung Cancer | | 11/23/2013, 05/26/2013 | | | Screening | 8 | | | + + + + + | Vaccine: Influenza | | | | | (Season Ended) | 9 | | | + + [...] the | | | | | RVR ([facility]) | results section. | + +--------+ [...] + + from Last 3 Months Results ECG 12 lead (11/03/2018 18:10 PST)Only the most recent of 2 results within the time period is included. + + + + + + | [...] | | | | SUSANNAH CUI MD ([id number]) | | | | | | on [...] + XR Chest AP Portable (11/03/2018 18:03 PST)Only the most recent of 3 results within the period is included. + + | Specimen | + + [...] + + | Performing | Address | City/State/[facility] | Phone Number | | [...] [address] | [place] | [phone] | | [facility] | | [address] | | | - LABORATORY | | [...] | Red Top | | | [facility] | | | Tube | | | [...] [address] | [place] | [phone] | | [facility] | | [address] | | | - LABORATORY | | [...] | Top Tube | | | [facility] | | | | | | [...] [address] | [place] | [phone] | | [facility] | | [address] | | | - LABORATORY | | [...] | Top Tube | | | [facility] | | [...] + | [facility] | [address] | [place] | [phone] | | [facility] | | [address] | | | - LABORATORY | | | | + + + + + Culture, Blood (11/03/2018 16:32 PST)Only the most recent of 2 results within the time rachel od is included. + + + + + + | [...] ST. | [address] | [place] | [phone] | | [facility] | | [address] | | | - LABORATORY | | | | + + + + + CBC with Differential (11/03/2018 16:30 PST)Only the most recent of 2 results within the ti ut period is included. + + + + + + | [...] | Eosinophils | | K/uL | [facility] | | | | | | MEDICAL | | | | | | CENTER - | | | | | | LABORATORY | | + + + + + + | Absolute | 0.03 | 0.00 - 0.10 | [facility] | | | Basophils | | K/uL | [facility] | | | | | | MEDICAL | | | | | | CENTER - | | | | | | LABORATORY | | + + + + + + | Absolute | 0.08 (H) | 0.00 - 0.03 | [facility] | | | Immature | | K/uL | [facility] | | | Granulocyte | | | [...] | nRBC | | K/uL | [facility] | | | | | | MEDICAL [...] [address] | [place] | [phone] | | [facility] | | [address] | | | - LABORATORY | | [...] | Critical Result called | mmol/L | [facility] | | | | to and read [...] + + + + + | [facility] | [address] | [place] | [phone] | | [facility] | | [address] | | | - LABORATORY | | [...] | | | | | | [facility] | | | | | | MEDICAL | | | | | | CENTER - | | | | | | LABORATORY | | + +---------+ + + + | Glucose | 239 (H) | 60 - 106 mg/dL | [facility] | | | | | | [facility] | | | | | | MEDICAL | | | | | | CENTER - | | | | | | LABORATORY | | + +---------+ + + + | BUN | 18 | 9 - 23 mg/dL | [facility] | | | | | | [facility] | | | | | | MEDICAL | | | | | | CENTER - | | | | | | LABORATORY | | + +---------+ + + + | Creatinine | 1.26 | 0.70 - 1.30 | [facility] | | | | | mg/dL | [facility] | | | | | | MEDICAL | | | | | | CENTER - | | | | | | LABORATORY | | + +---------+ + + + | eGFR if not | 59 (L) | >=60 | [facility] | | | | | mL/min/1.73m2 | [facility] | | | [facility] | | | MEDICAL | | | | | | CENTER - | | | | | | LABORATORY | | + +---------+ + + + | Ca | 9.8 | 8.7 - 10.4 | [facility] | | | | | mg/dL | [facility] | | | | | | MEDICAL | | | | | | CENTER - | | | | | | LABORATORY | | + +---------+ + + + | BUN/Creatin | 14.3 | | [facility] | | | ine Ratio | | | [facility] | | | | | | MEDICAL [...] + | [facility] | [address] | [place] | [phone] | | [facility] | | [address] | | | - LABORATORY | | | | + + + + + Protime INR (11/03/2018 15:03 PST) + + + + + + | Component | Value | Ref Range | Performed | Pathologist | | | | | At | Signature | + + + + + + | Prothrombin | 18.1 (H) | 11.3 - 13.9 | [facility] | | | Time | | seconds | [facility] | | | | | | MEDICAL | | | | | | CENTER - | | | | | | LABORATORY | | + + + + + + | INR | 1.5 (H)Comment: Usual | 0.9 - 1.1 | [facility] | | | | Oral Anticoagulation | | [facility] | | | | Range: 2.0 - [...] [address] | [place] | [phone] | | [facility] | | [address] | | | - LABORATORY | | | | + + + + + ECHO Complete (11/03/2018 8:22 PST) [...] [address] | [place] | [phone] | | [facility] | | [address] | | | - LABORATORY | | | | + + + + + Troponin I (11/03/2018 6:09 PST)Only the most recent of 3 results within the time period i s included. + + + + + + | Component | Value | Ref Range | Performed | Pathologist | | | | | At | Signature | + + + + + + | Troponin I | 0.25 (H) | <0.06 ng/mL | [facility] | | | | | | [facility] | | | | | | MEDICAL [...] + | [facility] | [address] | [place] | [phone] | | [facility] | | [address] | | | - LABORATORY | | [...] + | [facility] | [address] | [place] | [phone] | | [facility] | | [address] | | | - LABORATORY | | [...] | | | | | | [facility] | | | | | | [...] [address] | [place] | [phone] | | [facility] | | [address] | | | - LABORATORY | | [...] [address] | [place] | [phone] | | [facility] | | [address] | | | - LABORATORY | | [...] mL/min/1.73m2 | [facility] | | | [facility] | | | MEDICAL | | | [...] | | Total | | | [facility] | | | | | | MEDICAL [...] ST. | [address] | [place], [place] | [phone] | | [facility] | | [address] | | | - LABORATORY | | [...] ST. | [address] | [place] | [phone] | | [facility] | | [address] | | | - LABORATORY | | | | + + + + + Culture, MRSA (11/02/2018 18:00 PST) + + + + + + | Component | Value | Ref Range | Performed | Pathologist | | | | | At | Signature | + + + + + + | Culture | Negative for MRSA by | | BIL[facility] | | | | chromogenic agar method | | [facility] | | | | | | [...] [address] | [place] | [phone] | | [facility] | | [address] | | | - LABORATORY | | | | + + + + + IMAGING REPORT - EXTERNAL SCAN (11/02/2018 0:00 PST)Only the most recent of 3 results with in the time period is included. + + + | Narrative | Performed At | + + + | Ordered by an | | | unspecified provider. | | + + + ECG - EXTERNAL SCAN (11/02/2018 0:00 PST) + + + | Narrative | Performed At | + + + | Ordered by an | | | unspecified provider. | | + + + from Last 3 Months Insurance + +--------+ +--------+ [...] | [employer] | [employer] | [id number] | 03/03/20 | [phone] | | Medica | | MEDICAID HMO | HEALTH | | 14-Pre | 1 | | id | | | MDCD | | sent | | | | | | HMO [place] | | | | | | + +--------+ +--------+ +---------+--------+ | [employer] | [employer] | [id number] | | [phone] | | Med[employer] | | MEDICAID HMO [...] | | al/Fam | | 1965 | [phone] | [place] | | | cristina | | | 1 (Home) | [address] | | | | | | [phone] | | | | | | | 5 (Work) | | + +--------+ +--------+ + + | Taurus Domínguez | Person | Self | [birth year] | [address] | | | al/Fam | | 1965 | [phone] | [place] | | | cristina | | | 1 (Home) | [address] | + +--------+ +--------+ + + Advance Directives Patient has advance care planning documents, and code status on file. For more information, please contact:[facility] [address] [place] [facility] [address] + + + + + | Code Status | Date | Date | Comments | | | Activated | Inactivated | | + + + + + | Full Code | 11/02/2018 | 11/03/2018 | | | | 18:27 | 23:51 | | + + + + +
--- OUTSIDE RECORDS SUMMARY | ~2018-12-24 | XMS | Encounter Summary ---
Demographics + + + | Address | [address] | | | [place] [address] | + + + | Home Phone | | + + + | Preferred Language | Unknown | + + + | Marital Status | Unknown | + + + | Muslim Affiliation | Unknown | + + + | Race | Unknown | + + + | Ethnic Group | Unknown | + + + Author + + + | Author | [facility] | | | and [place] | + + + | Organization | [facility] | | | and [place] | + + + | Address | Unknown | + + + | Phone | Unavailable | + + + Support + + + + + | Name | Relationship | Address | Phone | + + + + + | Taurus Salinas | ECON | [place] | | | | | [address] | | + + + + + | Message,Detailed | ECON | Unknown | | + + + + + Care Team Providers + +------+ + | Care Skid Worker Name | Role | Phone | + [...] + + | 11/02/ | Hospital | [facility] | Arlin Chou | Atrial fibrillation, | | 2019 - | Encounter | MED [facility] ICU [address] | MD Anabel [address] | unspecified type | | | | [place], | [address] [place] | ([facility]ERLY [facility]); Atrial | | 11/03/ | | [place] [address] | [place] [address] | fibrillation with | | 2019 | | [phone] | [phone] | RVR ([facility]); | | | | | | Panlobular emphysema | | | | | Natalie Reyes MD | ([facility]); Troponin | | | | | [address] | level elevated; | | | | | [place] | Gastroesophageal | | | | | [address] | reflux disease, | | | | [...] Natalie Reyes MD - 11/03/2018 1847 PST [place], [place] HOSPITALIST DISCHARGE SUMMARY Pt. Name/Age/: Taurus [...] with normal EF. Patient was seen by [facility]iology in March 2018 and [...] Verma graciously accepting patient for transfer to [facility] for higher LOC. 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 Electronically signed by: Natalie Reyes MD, 11/03/2018 18:47 [facility] documented in this encount er Medications [...] Martino M D - 11/03/2018 0830 PST [facility] [place] HOSPITALIST PROGRESS NOTE Patient: Taurus Domínguez : 1965: Age: 53 y.o. MedRec: [id number] Admission date: 11/02/2018 Hospital day # : [...] 110s-120s. TSH within normal limits. Echo pending. [id number] sc ore 3, warranting anticoag (prior stroke, [...] showed normal EF. Patient was seen by [facility]iology in March 2018; patient [...] Procedure Component Value Units Date/Time Culture, MRSA [[id number]] Collected: 11/02/18 1800 Order Status: Sent Lab [...] on room air at flow rate L/min Ntaalie Reyes MD 11/03/2018 8:30 [facility] Plan of Treatment Not [...] | | | | SUSANNAH CUI MD ([id number]) | | | | | | on [...] + | [facility] | [address] | [place] | [phone] | | [facility] | | [address] | | | - LABORATORY | | [...] + | [facility] | [address] | [place] | [phone] | | [facility] | | [address] | | | - LABORATORY | | [...] [address] | [place] | [phone] | | [facility] | | [address] | | | - LABORATORY | | [...] | + + + + + | [facility] | [address] | [place] | [phone] | | [facility] | | [address] | | | - LABORATORY | | [...] + | [facility] | [address] | [place] | [phone] | | [facility] | | [address] | | | - LABORATORY | | [...] mL/min/1.73m2 | [facility] | | | [place] | | | MEDICAL | | | [...] [address] | [place] | [phone] | | [facility] | | [address] | | | - LABORATORY | | [...] + | [facility] | [address] | [place] | [phone] | | [facility] | | [address] | | | - LABORATORY | | [...] ST. | [address] | [place] | [phone] | | [facility] | | [address] | | | - LABORATORY | | [...] ST. | [address] | [place], [place] | [phone] | | [facility] | | [address] | | | - LABORATORY | | [...] | Procedure Note | + + | Somin, Rad Results In - 11/03/2018 1601 PST [...] ST[address] | [address] | [place] | [phone] | | [facility] | | [address] | | | - LABORATORY | | [...] | | | | SUSANNAH CUI MD ([id number]) | | | | | | on [...] [address] | [place] | [phone] | | [facility] | | [address] | | | - LABORATORY | | [...] [address] | [place] | [phone] | | [facility] | | [address] | | | - LABORATORY | | [...] + | [facility] | [address] | [place] | [phone] | | [facility] | | [address] | | | - LABORATORY | | [...] [address] | [place] | [phone] | | [facility] | | [address] | | | - LABORATORY | | [...] [address] | [place] | [phone] | | [facility] | | [address] | | | - LABORATORY | | [...] mL/min/1.73m2 | [facility] | | | [place] | | | MEDICAL | | | [...] [address] | [place] | [phone] | | [facility] | | [address] | | | - LABORATORY | | [...] [address] | [place] | [phone] | | [facility] | | [address] | | | - LABORATORY | | [...] [address] | [place] | [phone] | | [facility] | | [address] | | | - LABORATORY | | [...] [address] | [place] | [phone] | | [facility] | | [address] | | | - LABORATORY | | [...] [address] | [place] | [phone] | | [facility] | | [address] | | | - LABORATORY | | [...] ST. | [address] | [place] | [phone] | | [facility] | | [address] | | | - LABORATORY | | [...] + + | Atrial fibrillation, unspecified type ([facility]) | + + | Atrial fibrillation with RVR ([facility]) Atrial fibrillation | + + | Panlobular [...] | | | | | | | [place] 11/03/18 at 1100, For 6 hours, | [...] PST | | | | | ONCE, [place] 11/03/18 at 0800, For 1 | | [...] | PST | | | | | [place] 11/03/18 at 1445, For 1 dose | | | | | | + +---------+ +---------+-------+---+ +---+---+ | | | +---+---+ + +-------+ +--------+---+---+ | succinylcholine (ANECTINE) | Given | 11/04/19 | 100 mg | | | | injection 100 mg 100 mg, | | 19 17:30 | | | | | Intravenous, ONCE, [place] 11/03/18 at | | PST | | [...]
--- OUTSIDE RECORDS SUMMARY | ~2018-12-24 | XMS | Clinical Summary ---
Demographics + + + | Address | [address] | | | [place] [address] | + + + | Home Phone | | + + + | Preferred Language | Unknown | + + + | Marital Status | Unknown | + + + | Mandaen Affiliation | Unknown | + + + | Race | Unknown | + + + | Ethnic Group | Unknown | + + + Author + + + | Author | [facility] | | | and [place] | + + + | Organization | [facility] | | | and [place] | + + + | Address | Unknown | + + + | Phone | Unavailable | + + + Support + + + + + | Name | Relationship | Address | Phone | + + + + + | Taurus Salinas | ECON | [place] | | | | | [address] | | + + + + + | Message,Detailed | ECON | Unknown | | + + + + + Care Team Providers + +------+ + | Care Math Teacher Name | Role | Phone | [...] Natalie Reyes MD | ([facility]); Atrial | | 11/03/ | | | | fibrillation with | | 2018 | | | | RVR ([facility]); | | | | | | Panlobular emphysema | | | | | | ([facility]); Troponin | | [...] | | from the | | | original.[facility] | | | [facility] | | [...] Number: | | | | | | [phone] | | | Date of | | [...] | | | 18:47 | | | [place] | | | [facility] | | [...] | | | | SUSANNAH CUI MD ([id number]) | | | | | | on [...] + + | Performing | Address | City/State/Inscription House [facility] Cent[facility]ode | Phone Number | | [...] [address] | [place] | [phone] | | [facility] | | [address] | | | - LABORATORY | | [...] [address] | [place] | [phone] | | [facility] | | [address] | | | - LABORATORY | | [...] | [employer] | | | [facility] | | | | | | [...] [address] | [place] | [phone] | | [facility] | | [address] | | | - LABORATORY | | [...] + | [facility] | [address] | [place] | [phone] | | [facility] | | [address] | | | - LABORATORY | | [...] ST. | [address] | [place] | [phone] | | [facility] | | [address] | | | - LABORATORY | | | | + + + + + CBC with Differential (11/03/2018 16:30 PST)Only the most recent of 2 results within the ti al period is included. + + + + [...] [address] | [place] | [phone] | | [facility] | | [address] | | | - LABORATORY | | [...] | Critical Result called | mmol/L | [facility] | | | | to and read [...] [address] | [place] | [phone] | | [facility] | | [address] | | | - LABORATORY | | [...] mL/min/1.73m2 | [facility] | | | [place] | | | MEDICAL | | | [...] | ine Ratio | | | [facility] | | | | | | MEDICAL [...] + | [facility] | [address] | [place] | [phone] | | [facility] | | [address] | | | - LABORATORY | | [...] [address] | [place] | [phone] | | [facility] | | [address] | | | - LABORATORY | | [...] | | Calculated | | | [facility] | | [...] [address] | [place] | [phone] | | [facility] | | [address] | | | - LABORATORY | | [...] + | [facility] | [address] | [place] | [phone] | | [facility] | | [address] | | | - LABORATORY | | [...] + | [facility] | [address] | [place] | [phone] | | [facility] | | [address] | | | - LABORATORY | | [...] | | | | | | [facility] | | | | | | [...] [address] | [place] | [phone] | | [facility] | | [address] | | | - LABORATORY | | [...] [address] | [place] | [phone] | | [facility] | | [address] | | | - LABORATORY | | [...] mL/min/1.73m2 | [facility] | | | [place] | | | MEDICAL | | | [...] ST. | [address] | [place], [place] | [phone] | | [facility] | | [address] | | | - LABORATORY | | [...] [address] | [place] | [phone] | | [facility] | | [address] | | | - LABORATORY | | [...] | | chromogenic agar method | | [facility] | | | | | | MEDICAL [...] | [address] | [place] | [phone] | | [facility] | | [address] | | | - LABORATORY | | [...] | [employer] | [employer] | [id number] | 03/03/20 | [phone] | | Medica | | MEDICAID HMO | HEALTH | | 14-Pre | 1 | | id | | | MDCD | | sent | | | | | | HMO OR | | | | | | + +--------+ +--------+ +---------+--------+ | [employer] | [employer] | [id number] | | [phone] | | Medica | [...] [place] | | | 1 (Home) | [address] | | | | | | [phone] | | | | | | | 5 (Work) | | + +--------+ +--------+ + + | Taurus Domínguez | Person | Self | [birth year] | [address] | | | al/Fam | | 1965 | [phone] | [place] | | | [place] | | | 1 (Home) | [address] | + +--------+ +--------+ + + Advance Directives Patient has advance care planning documents, and code status on file. For more information, please contact:[facility] [place] [facility] [place] [address] + + + + + | Code Status | Date | Date | Comments | | | Activated | Inactivated | | + + + + + | Full Code | 11/02/2018 | 11/03/2018 | | | | 18:27 | 23:51 | | + + + + +
[~2018-12-24 08:13] MED LIST changes: +ALDACTONE25 MG PO; +ASPIR 8181 MG PO; +CARVEDILOL25 MG PO; +COUMADIN5 MG PO; +DEMADEX20 MG PO; +DIGOXIN125 MCG PO
--- OUTSIDE RECORDS SUMMARY | 2018-12-24 08:16 | XMS ---
PreManage Notification: ALINE DUKE Security Phone Manager Events No recent Security Events currently on file CRITERIA MET - [facility] - 2 Visits in 30 Days [facility] Physician 11/25/2018-Current PHONE: [phone] TIANA SAENZ [facility] Current PHONE: Unknown DANY MONTIEL [facility] Current PHONE: Unknown Gema has no Care Guidelines for this patient. E.DNathan VISIT COUNT (12 MO.) 3 [facility] TOTAL 3 NOTE: Visits indicate total known visits. ED/UCC VISIT TRACKING (12 MO.) 12/24/2018 08:14 [facility] [place] TYPE: Emergency COMPLAINT: - R HAND PAIN/R HIP PAIN/FALL 11/24/2018 17:34 [facility] [place] TYPE: Emergency COMPLAINT: - CHEST PAIN DIAGNOSES: - Other intermediate designer (current) drug therapy - Unspecified atrial fibrillation - [facility] (current) use of aspirin - Essential (primary) hypertension - Chest pain, unspecified - Personal history of transient ischemic attack (TIA), and cerebral infarction without residual deficits - director long term care (current) use of anticoagulants 11/02/2018 07:58 [facility] [place] TYPE: Emergency COMPLAINT: - ABD PAIN DIAGNOSES: - Essential (primary) hypertension - Epigastric pain - Personal history of transient ischemic attack (TIA), and cerebral infarction without residual deficits - Unspecified atrial fibrillation - Other intermediate designer (current) drug therapy INPATIENT VISIT TRACKING (12 MO.) [facility] DIAGNOSES: - Cardiogenic shock - Cardiogenic shock 11/02/2018 16:46 [facility] M.CNathan [facility] TYPE: Intensive Care DIAGNOSES: - Gastro-esophageal reflux disease without esophagitis - Panlobular emphysema - Unspecified atrial fibrillation - Afib - Abnormal levels of other serum enzymes [email or web address]
== END 2018-12-24 08:34 | disposition home or self-care (01) ==
LOC: ED 08:13
DX: M25.531 Pain in right wrist (principal); M25.551 Pain in right hip; M25.561 Pain in right knee; W19.XXXA Unspecified fall, initial encounter

== ENCOUNTER 2019-09-04 08:08 | Inpatient (IN) | payer OTHER ==
[~2019-09-04] VITALS: Ht 175.3 cm; Wt 85.1 kg
--- OUTSIDE RECORDS SUMMARY | ~2019-09-04 | XMS | Encounter Summary ---
Demographics + + + | Address | [address] | | | [place] [address] | + + + | Home Phone | | + + + | Preferred Language | Unknown | + + + | Marital Status | Unknown | + + + | Lutheran Affiliation | Unknown | + + + | Race | Unknown | + + + | Ethnic Group | Unknown | + + + Author + + + | Author | [facility] | | | and [place] | + + + | Organization | [facility] | | | and [place] | + + + | Address | Unknown | + + + | Phone | Unavailable | + + + Support + + + + + | Name | Relationship | Address | Phone | + + + + + | Taurus Salinas | ECON | [place] | | | | | [address] | | + + + + + | Detailed Message | ECON | Unknown | | + + + + + Care Team Providers + +------+ + | 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 | Role | Phone | + +------+ + | Kenny Hernandez DO | PCP | | + +------+ + Encounter Details +--------+ + + + + | Date | Type | Department | Care Team | Description | +--------+ + + + + | 04/24/ | Abstract | [facility] [place] | [facility], | | | 2016 | | GASTROENTEROLOGY | [address] | | | | [address] | [place] | | | | | [address] [place], [place] | [place], [place] | | | | | [address] | [address] | | | | | [phone] | | | +--------+ + + + [...] | | | + +---+---+---+ + + + + + | Alcohol Use | Drinks/Week | oz/Week | Comments | + + + + + | Yes | 35-70 Cans of beer | 35.0 - 70.0 | 5-10 drinks daily, | | | 0 Standard drinks | | can drink a 5th a | | | or equivalent | | day easily | + + + + + + + + | Sex Assigned [...] + + documented as of this encounter Plan of Treatment +--------+---------+ + + + | Date | Type | Specialty | Care Team | Description | +--------+---------+ + + + | 09/30/ | Office | Cardiology | Samm Malik, | | | 2019 | Visit | | [address] | | | | | | [place] [facility] [place] | | | | | | [address] | | | | | | | | +--------+---------+ + + + | 01/28/ | Office | Cardiology | Vannesa Martinez | | | 2019 | Visit | | [address] | | | | | | [address] | | | | | | [place] [address] | | | | | | [phone] | | | | | | | | +--------+---------+ + + + documented as of this encounter Procedures + +--------+ + + + | Procedure Name | Priori | Date/Time | Associated Diagnosis | Comments | | | ty | | | | + +--------+ + + + | EXTERNAL LAB: | Routin | 02/24/2017 | | Results for this | | URINALYSIS | e | | | procedure are in the | | | | | | results section. | + +--------+ + + + | URINALYSIS, REFLEX | Routin | 02/24/2017 | | Results for this | | MICROSCOPIC AND/OR | e | | | procedure are in the | | CULTURE | | | | results section. | + +--------+ + + + | EXTERNAL LAB: BUN | Routin | 02/23/2017 | | Results for this | | | e | | | procedure are in the | | | | | | results section. | + +--------+ + + + | EXTERNAL LAB: | Routin | 02/23/2017 | | Results for this | | GLUCOSE | e | | | procedure are in the | | | | | | results section. | + +--------+ + + + | EXTERNAL LAB: PSA | Routin | 02/23/2017 | | Results for this | | | e | | | procedure are in the | | | | | | results section. | + +--------+ + + + | EXTERNAL LAB: PARISA | Routin | 02/23/2017 | | Results for this | | | e | | | procedure are in the | | | | | | results section. | + +--------+ + + + | EXTERNAL LAB: AST | Routin | 02/23/2017 | | Results for this | | | e | | | procedure are in the | | | | | | results section. | + +--------+ + + + | EXTERNAL LAB: | Routin | 02/23/2017 | | Results for this | | ALKALINE PHOSPHATASE | e | | | procedure are in the | | | | | | results section. | + +--------+ + + + | EXTERNAL LAB: | Routin | 02/23/2017 | | Results for this | | BILIRUBIN, TOTAL | e | | | procedure are in the | | | | | | results section. | + +--------+ + + + | EXTERNAL LAB: | Routin | 02/23/2017 | | Results for this | | ALBUMIN | e | | | procedure are in the | | | | | | results section. | + +--------+ + + + | EXTERNAL LAB: | Routin | 02/23/2017 | | Results for this | | PROTEIN, TOTAL | e | | | procedure are in the | | | | | | results section. | + +--------+ + + + | EXTERNAL LAB: | Routin | 02/23/2017 | | Results for this | | CALCIUM | e | | | procedure are in the | | | | | | results section. | + +--------+ + + + | EXTERNAL LAB: CARBON | Routin | 02/23/2017 | | Results for this | | DIOXIDE | e | | | procedure are in the | | | | | | results section. | + +--------+ + + + | EXTERNAL LAB: | Routin | 02/23/2017 | | Results for this | | CHLORIDE | e | | | procedure are in the | | | | | | results section. | + +--------+ + + + | EXTERNAL LAB: | Routin | 02/23/2017 | | Results for this | | POTASSIUM | e | | | procedure are in the | | | | | | results section. | + +--------+ + + + | EXTERNAL LAB: SODIUM | Routin | 02/23/2017 | | Results for this | | | e | | | procedure are in the | | | | | | results section. | + +--------+ + + + | EXTERNAL LAB: CBC | Routin | 02/23/2017 | | Results for this | | | e | | | procedure are in the | | | | | | results section. | + +--------+ + + + | EXTERNAL LAB: RAFAT | Routin | 02/23/2017 | | Results for this | | | e | | | procedure are in the | | | | | | results section. | + +--------+ + + + | EXTERNAL LAB: | Routin | 02/23/2017 | | Results for this | | TRIGLYCERIDES | e | | | procedure are in the | | | | | | results section. | + +--------+ + + + | EXTERNAL LAB: | Routin | 02/23/2017 | | Results for this | | CHOLESTEROL, HDL | e | | | procedure are in the | | | | | | results section. | + +--------+ + + + | EXTERNAL LAB: | Routin | 02/23/2017 | | Results for this | | CHOLESTEROL, TOTAL | e | | | procedure are in the | | | | | | results section. | + +--------+ + + + | EXTERNAL LAB: | Routin | 02/23/2017 | | Results for this | | CHOLESTEROL, LDL | e | | | procedure are in the | | | | | | results section. | + +--------+ + + + | EXTERNAL LAB: EGFR | Routin | 02/23/2017 | | Results for this | | | e | | | procedure are in the | | | | | | results section. | + +--------+ + + + | EXTERNAL LAB: | Routin | 02/23/2017 | | Results for this | | CREATININE | e | | | procedure are in the | | | | | | results section. | + +--------+ + + + | LIPID PANEL | Routin | 02/23/2017 | | Results for this | | | e | | | procedure are in the | | | | | | results section. | + +--------+ + + + | CBC WITH | Routin | 02/23/2017 | | Results for this | | DIFFERENTIAL | e | | | procedure are in the | | | | | | results section. | + +--------+ + + + | COMPREHENSIVE | Routin | 02/23/2017 | | Results for this | | METABOLIC PANEL | e | | | procedure are in the | | | | | | results section. | + +--------+ + + + documented in this encounter Results Urinalysis, Reflex Microscopic and/or Culture (02/24/2017) + + + + + + | Component | Value | Ref Range | Performed | Pathologist | | | | | At | Signature | + + + + + + | COLLECTION | Clean Catch | | | | | METHOD 1 | | | | | + + + + + + | Color | Yellow | | | | + + + + + + | Clarity | Clear | | | | + + + + + + | Bilirubin, | Negative | Negative | | | | Urine | | | | | + + + + + + | Nitrite, | Negative | Negative | | | | Urine | | | | | + + + + + + | Urobilinoge | Normal | < 0.2 mg/dL, | | | | n, Urine | | 1.0 mg/dL, 4.0 | | | | | | mg/dL, Normal, | | | | | | 1.0 E.U./dL, | | | | | | 0.2 E.U./dL, | | | | | | 0.2 mg/dL, | | | | | | Negative, 1 | | | | | | mg/dL, <2.0 | | | | | | mg/dL | | | + + + + + + | CASTS | Negative | | | | + + + + + + | WBC, UA | 0 | 0 - 4 | | | + + + + + + | CRYSTAL UA | Negative | | | | + + + + + + | BACTERIA UA | Negative | Negative /HPF | | | + + + + + + + + | Specimen | + + | Urine | + + External Lab: Urinalysis (02/24/2017) + + + + + + | Component | Value | Ref Range | Performed | Pathologist | | | | | At | Signature | + + + + + + | UA Blood, | Negative | | EXTERNAL | | | External | | | LAB | | + + + + + + | UA Glucose, | Normal | | EXTERNAL | | | External | | | LAB | | + + + + + + | UA Ketones, | Negative | | EXTERNAL | | | External | | | LAB | | + + + + + + | UA Ph, | 6 | 5 - 9 | EXTERNAL | | | External | | | LAB | | + + + + + + | UA | Negative | | EXTERNAL | | | Proteins, | | | LAB | | | External | | | | | + + + + + + | UA RBC, | 0 | 0 - 4 | EXTERNAL | | | External | | | LAB | | + + + + + + | UA Specific | 1.009 | 1.005 - 1.03 | EXTERNAL | | | Miller, | | | LAB | | | External | | | | | + + + + + + | UA | Negative | | EXTERNAL | | | Leukocyte | | | LAB | | | Esterase, | | | | | | External | | | | | + + + + + + + +---------+ + + | Performing | Address | City/State/Zipcode | Phone Number | | Organization | | | | + +---------+ + + | EXTERNAL LAB | | | | + +---------+ + + CBC with Differential (02/23/2017) + + + + + + | Component | Value | Ref Range | Performed | Pathologist | | | | | At | Signature | + + + + + + | MCH | 34.0 (A) | 26.0 - 33.0 pg | | | + + + + + + | MCHC | 34.0 | 31.0 - 37.0 % | | | + + + + + + | Basophils % | 1.5 | 0 - 2 | | | + + + + + + + + | Specimen | + + | Blood | + + Comprehensive Metabolic Panel (02/23/2017) + +--------+ + + + | Component | Value | Ref Range | Performed | Pathologist | | | | | At | Signature | + +--------+ + + + | Anion Gap | 24 (A) | 7 - 21 mmol/L | | | + +--------+ + + + | BUN/Creatin | 24.7 | 6 - 28.6 | | | | ine Ratio | | | | | + +--------+ + + + | Globulin | 2.3 | 1.8 - 3.5 | | | + +--------+ + + + | Albumin/Apryl | 1.8 | 1.1 - 2.4 | | | | bulin Ratio | | | | | + +--------+ + + + + + | Specimen | + + | Blood | + + Lipid Panel (02/23/2017) + +---------+ + + + | Component | Value | Ref Range | Performed | Pathologist | | | | | At | Signature | + +---------+ + + + | VLDL | 23 | 4 - 40 | | | | Cholesterol | | | | | | Niall | | | | | + +---------+ + + + | Chol/HDL | 2.9 | 0.0 - 5.0 | | | | Ratio | | | | | + +---------+ + + + | Non HDL | 142 (A) | 0 - 130 | | | | Chol. | | | | | | (LDL+VLDL) | | | | | + +---------+ + + + + + | Specimen | + + | Blood | + + External Lab: AMERICO (02/23/2017) + +-------+ + + + | Component | Value | Ref Range | Performed | Pathologist | | | | | At | Signature | + +-------+ + + + | BUN, | 20 | 6 - 23 | EXTERNAL | | | External | | | LAB | | + +-------+ + + + + +---------+ + + | Performing | Address | City/State/Zipcode | Phone Number | | Organization | | | | + +---------+ + + | EXTERNAL LAB | | | | + +---------+ + + External Lab: Glucose (02/23/2017) + +--------+ + + + | Component | Value | Ref Range | Performed | Pathologist | | | | | At | Signature | + +--------+ + + + | Glucose, | 69 (A) | 70 - 100 | EXTERNAL | | | External | | | LAB | | + +--------+ + + + + +---------+ + + | Performing | Address | City/State/Zipcode | Phone Number | | Organization | | | | + +---------+ + + | EXTERNAL LAB | | | | + +---------+ + + External Lab: PSA (02/23/2017) + +-------+ + + + | Component | Value | Ref Range | Performed | Pathologist | | | | | At | Signature | + +-------+ + + + | PSA, | 2.2 | 0 - 4 | EXTERNAL | | | External | | | LAB | | + +-------+ + + + + +---------+ + + | Performing | Address | City/State/Zipcode | Phone Number | | Organization | | | | + +---------+ + + | EXTERNAL LAB | | | | + +---------+ + + External Lab: ALT (02/23/2017) + +---------+ + + + | Component | Value | Ref Range | Performed | Pathologist | | | | | At | Signature | + +---------+ + + + | ALT, | 182 (A) | 7 - 52 | EXTERNAL | | | External | | | LAB | | + +---------+ + + + + +---------+ + + | Performing | Address | City/State/Zipcode | Phone Number | | Organization | | | | + +---------+ + + | EXTERNAL LAB | | | | + +---------+ + + External Lab: AST (02/23/2017) + +---------+ + + + | Component | Value | Ref Range | Performed | Pathologist | | | | | At | Signature | + +---------+ + + + | AST, | 122 (A) | 13 - 39 | EXTERNAL | | | External | | | LAB | | + +---------+ + + + + +---------+ + + | Performing | Address | City/State/Zipcode | Phone Number | | Organization | | | | + +---------+ + + | EXTERNAL LAB | | | | + +---------+ + + External Lab: Alkaline Phosphatase (02/23/2017) + +-------+ + + + | Component | Value | Ref Range | Performed | Pathologist | | | | | At | Signature | + +-------+ + + + | ALP, | 58 | 31 - 120 | EXTERNAL | | | External | | | LAB | | + +-------+ + + + + +---------+ + + | Performing | Address | City/State/Zipcode | Phone Number | | Organization | | | | + +---------+ + + | EXTERNAL LAB | | | | + +---------+ + + External Lab: Bilirubin, Total (02/23/2017) + +-------+ + + + | Component | Value | Ref Range | Performed | Pathologist | | | | | At | Signature | + +-------+ + + + | Bilirubin, | 1.2 | 0 - 1.2 | EXTERNAL | | | Total, | | | LAB | | | External | | | | | + +-------+ + + + + +---------+ + + | Performing | Address | City/State/Zipcode | Phone Number | | Organization | | | | + +---------+ + + | EXTERNAL LAB | | | | + +---------+ + + External Lab: Albumin (02/23/2017) + +-------+ + + + | Component | Value | Ref Range | Performed | Pathologist | | | | | At | Signature | + +-------+ + + + | Albumin, | 4.2 | 3.5 - 5 | EXTERNAL | | | External | | | LAB | | + +-------+ + + + + +---------+ + + | Performing | Address | City/State/Zipcode | Phone Number | | Organization | | | | + +---------+ + + | EXTERNAL LAB | | | | + +---------+ + + External Lab: Protein, Total (02/23/2017) + +-------+ + + + | Component | Value | Ref Range | Performed | Pathologist | | | | | At | Signature | + +-------+ + + + | Protein, | 6.5 | 6 - 8 | EXTERNAL | | | Total, | | | LAB | | | External | | | | | + +-------+ + + + + +---------+ + + | Performing | Address | City/State/Zipcode | Phone Number | | Organization | | | | + +---------+ + + | EXTERNAL LAB | | | | + +---------+ + + External Lab: Calcium (02/23/2017) + +-------+ + + + | Component | Value | Ref Range | Performed | Pathologist | | | | | At | Signature | + +-------+ + + + | Calcium, | 9.6 | 8.4 - 10.2 | EXTERNAL | | | External | | | LAB | | + +-------+ + + + + +---------+ + + | Performing | Address | City/State/Zipcode | Phone Number | | Organization | | | | + +---------+ + + | EXTERNAL LAB | | | | + +---------+ + + External Lab: Carbon Dioxide (02/23/2017) + +-------+ + + + | Component | Value | Ref Range | Performed | Pathologist | | | | | At | Signature | + +-------+ + + + | Carbon | 22 | 19 - 31 | EXTERNAL | | | Dioxide, | | | LAB | | | External | | | | | + +-------+ + + + + +---------+ + + | Performing | Address | City/State/Zipcode | Phone Number | | Organization | | | | + +---------+ + + | EXTERNAL LAB | | | | + +---------+ + + External Lab: Chloride (02/23/2017) + +-------+ + + + | Component | Value | Ref Range | Performed | Pathologist | | | | | At | Signature | + +-------+ + + + | Chloride, | 97 | 95 - 112 | EXTERNAL | | | External | | | LAB | | + +-------+ + + + + +---------+ + + | Performing | Address | City/State/Zipcode | Phone Number | | Organization | | | | + +---------+ + + | EXTERNAL LAB | | | | + +---------+ + + External Lab: Potassium (02/23/2017) + +-------+ + + + | Component | Value | Ref Range | Performed | Pathologist | | | | | At | Signature | + +-------+ + + + | Potassium, | 3.6 | 3.6 - 5.1 | EXTERNAL | | | External | | | LAB | | + +-------+ + + + + +---------+ + + | Performing | Address | City/State/Zipcode | Phone Number | | Organization | | | | + +---------+ + + | EXTERNAL LAB | | | | + +---------+ + + External Lab: Sodium (02/23/2017) + +-------+ + + + | Component | Value | Ref Range | Performed | Pathologist | | | | | At | Signature | + +-------+ + + + | Sodium, | 139 | 132 - 143 | EXTERNAL | | | External | | | LAB | | + +-------+ + + + + +---------+ + + | Performing | Address | City/State/Zipcode | Phone Number | | Organization | | | | + +---------+ + + | EXTERNAL LAB | | | | + +---------+ + + External Lab: CBC (02/23/2017) + + + + + + | Component | Value | Ref Range | Performed | Pathologist | | | | | At | Signature | + + + + + + | WBC, | 6.7 | 4.5 - 11 | EXTERNAL | | | External | | | LAB | | + + + + + + | HGB, | 16.6 | 13.5 - 18 | EXTERNAL | | | External | | | LAB | | + + + + + + | HCT, | 48.5 | 41 - 50 | EXTERNAL | | | External | | | LAB | | + + + + + + | PLT, | 288 | 140 - 440 | EXTERNAL | | | External | | | LAB | | + + + + + + | Neutrophils | 68.6 | 39 - 80 | EXTERNAL | | | %, | | | LAB | | | External | | | | | + + + + + + | Lymphocytes | 23.6 (A) | 24 - 44 | EXTERNAL | | | %, | | | LAB | | | External | | | | | + + + + + + | Monocytes | 5.1 | 0 - 12 | EXTERNAL | | | %, External | | | LAB | | + + + + + + | Eosinophils | 1 | 0 - 6 | EXTERNAL | | | %, | | | LAB | | | External | | | | | + + + + + + | RBC, | 4.88 | 4.3 - 5.7 | EXTERNAL | | | External | | | LAB | | + + + + + + | MCV, | 99 | 81 - 99 | EXTERNAL | | | External | | | LAB | | + + + + + + | RDW, | 14.8 | 10.5 - 15 | EXTERNAL | | | External | | | LAB | | + + + + + + + +---------+ + + | Performing | Address | City/State/Zipcode | Phone Number | | Organization | | | | + +---------+ + + | EXTERNAL LAB | | | | + +---------+ + + External Lab: TSH (02/23/2017) + +-------+ + + + | Component | Value | Ref Range | Performed | Pathologist | | | | | At | Signature | + +-------+ + + + | TSH, | 0.409 | 0.27 - 4.2 | EXTERNAL | | | External | | | LAB | | + +-------+ + + + + + | Specimen | + + | Blood | + + + +---------+ + + | Performing | Address | City/State/Zipcode | Phone Number | | Organization | | | | + +---------+ + + | EXTERNAL LAB | | | | + +---------+ + + External Lab: Triglycerides (02/23/2017) + +---------+ + + + | Component | Value | Ref Range | Performed | Pathologist | | | | | At | Signature | + +---------+ + + + | Triglycerid | 226 (A) | 30 - 150 | EXTERNAL | | | es, | | | LAB | | | External | | | | | + +---------+ + + + + + | Specimen | + + | Blood | + + + +---------+ + + | Performing | Address | City/State/Zipcode | Phone Number | | Organization | | | | + +---------+ + + | EXTERNAL LAB | | | | + +---------+ + + External Lab: Cholesterol, HDL (02/23/2017) + +-------+ + + + | Component | Value | Ref Range | Performed | Pathologist | | | | | At | Signature | + +-------+ + + + | HDL | 74.5 | 40 - 99,999 | EXTERNAL | | | Cholesterol | | mg/dl | LAB | | | , External | | | | | + +-------+ + + + + + | Specimen | + + | Blood | + + + +---------+ + + | Performing | Address | City/State/Zipcode | Phone Number | | Organization | | | | + +---------+ + + | EXTERNAL LAB | | | | + +---------+ + + External Lab: Cholesterol, Total (02/23/2017) + +---------+ + + + | Component | Value | Ref Range | Performed | Pathologist | | | | | At | Signature | + +---------+ + + + | Cholesterol | 216 (A) | 0 - 200 mg/dl | EXTERNAL | | | , Total, | | | LAB | | | External | | | | | + +---------+ + + + + + | Specimen | + + | Blood | + + + +---------+ + + | Performing | Address | City/State/Zipcode | Phone Number | | Organization | | | | + +---------+ + + | EXTERNAL LAB | | | | + +---------+ + + External Lab: Cholesterol, LDL (02/23/2017) + +---------+ + + + | Component | Value | Ref Range | Performed | Pathologist | | | | | At | Signature | + +---------+ + + + | LDL | 119 (A) | 0 - 100 | EXTERNAL | | | Cholesterol | | | LAB | | | , Direct, | | | | | | External | | | | | + +---------+ + + + + + | Specimen | + + | Blood | + + + +---------+ + + | Performing | Address | City/State/Zipcode | Phone Number | | Organization | | | | + +---------+ + + | EXTERNAL LAB | | | | + +---------+ + + External Lab: eGFR (02/23/2017) + +-------+ + + + | Component | Value | Ref Range | Performed | Pathologist | | | | | At | Signature | + +-------+ + + + | eGFR, | >60 | 60 - 99,999 | EXTERNAL | | | External | | | LAB | | + +-------+ + + + + + | Specimen | + + | Blood | + + + +---------+ + + | Performing | Address | City/State/Zipcode | Phone Number | | Organization | | | | + +---------+ + + | EXTERNAL LAB | | | | + +---------+ + + External Lab: Creatinine (02/23/2017) + +-------+ + + + | Component | Value | Ref Range | Performed | Pathologist | | | | | At | Signature | + +-------+ + + + | Creatinine, | 0.81 | 0.7 - 1.33 | EXTERNAL | | | External | | | LAB | | + +-------+ + + + + + | Specimen | + + | Blood | + + + +---------+ + + | Performing | Address | City/State/Zipcode | Phone Number | | Organization | | | | + +---------+ + + | EXTERNAL LAB | | | | + +---------+ + + documented in this encounter Visit Diagnoses Not on filedocumented in this encounter"
--- OUTSIDE RECORDS SUMMARY | ~2019-09-04 | XMS | Encounter Summary ---
Demographics + + + | Address | [address] | | | [place] [address] | + + + | Home Phone | | + + + | Preferred Language | Unknown | + + + | Marital Status | Unknown | + + + | Gnosticism Affiliation | Unknown | + + + | Race | Unknown | + + + | Ethnic Group | Unknown | + + + Author + + + | Author | [facility] | | | and [place] | + + + | Organization | [facility] | | | and [place] | + + + | Address | Unknown | + + + | Phone | Unavailable | + + + Support + + + + + | Name | Relationship | Address | Phone | + + + + + | Taurus Salinas | ECON | [place] | | | | | [address] | | + + + + + | Detailed Message | ECON | Unknown | | + + + + + Care Team Providers + +------+ + | Care Musculoskeletal Physician Name | Role | Phone | + +------+ + | Kenny Hernandez DO | PCP | | + +------+ + Encounter Details +--------+ + + + + | Date | Type | Department | Care Team | Description | +--------+ + + + + | 12/12/ | Hospital | [facility] | Conversion | Benign essential | | 2019 | Encounter | [facility] | Transaction, | hypertension; Atrial | | | | CLINICAL DECISION | Provider Unknown | fibrillation with | | | | [address] | [phone] | RVR ([facility]); Acute | | | | [place], [place] | | combined systolic | | | | [address] | Gabe Conrad, | and diastolic | | | | [phone] | MD Carla SHAVER | congestive heart | | | | | [place], [place] | failure ([facility]) | | | | | [address] | | | | | | | | +--------+ + + + [...] Filed Vital Signs + + + + + | Vital Sign | Reading | Time Taken | Comments | + + + + + | Blood Pressure | 120/78 | 12/12/2018 5:23 PM | | | | | PDT | | + + + + + | Pulse | 73 | 12/12/2018 5:23 PM | | | | | PDT | | + + + + + | Temperature | 36.4 C (97.6 F) | 12/12/2018 5:23 PM | | | | | PDT | | + + + + + | Respiratory Rate | 16 | 12/12/2018 5:23 PM | | | | | PDT | | + + + + + | Oxygen Saturation | - | - | | + + + + + | Inhaled Oxygen | - | - | | | Concentration | | | | + + + + + | Weight | 83.5 kg (184 lb 1.3 | 12/12/2018 5:23 PM | | | | oz) | PDT | | + + + + + | Height | 175.3 cm (5' 9") | 12/12/2018 5:23 PM | | | | | PDT | | + + + + + | Body Mass Index | 27.18 | 12/12/2018 5:23 PM | | | | | PDT | | + + + + + documented in this [...] + + documented as of this encounter Medications at Time of Discharge + + + +---------+ + + | Medication | Sig | Dispensed | Refills | Start | End Date | | | | | | Date | | + + + +---------+ + + | carvedilol (COREG) | Take 1 tablet by | | 0 | 11/14/19 | | | 25 mg tablet | mouth 2 (two) times | | | 19 | | | | daily with meals. | | | | | + + + +---------+ + + | digoxin (LANOXIN) | Take 1 tablet by | | 0 | 11/14/19 | | | 125 mcg tablet | mouth daily. | | | 19 | 0 | + + + +---------+ + + | spironolactone | Take 1 tablet by | | 0 | 11/09/19 | | | (ALDACTONE) 25 mg | mouth daily. | | | 19 | 0 | | tablet | | | | | | + + + +---------+ + + | acetaminophen | Tylenol Tab ( 325 | | 0 | 03/15/20 | | | (TYLENOL) 325 mg | mg) 2-3 TABLETS PO | | | 11 | 9 | | tablet | q4-6hr prn | | | | | + + + +---------+ + + | | Take 3 mLs by | | 0 | | | | albuterol-ipratropiu | nebulization. | | | | 9 | | m (DUONEB) 2.5-0.5 | | | | | | | mg/3 mL SOLN | | | | | | + + + +---------+ + + | amLODIPine | amlodipine Tab ( 10 | | 0 | 03/15/20 | | | (NORVASC) 10 MG | mg) 1 TABLET PO | | | 11 | 9 | | tablet | Daily | | | | | + + + +---------+ + + | amLODIPine | Take 5 mg by mouth | | 0 | | | | (NORVASC) 5 mg | Daily. | | | | 9 | | tablet | | | | | | + + + +---------+ + + | aspirin 325 mg | aspirin Tab ( 325 | | 0 | 10/10/19 | | | tablet | mg) 1 TABLET PO | | | 11 | 9 | | | Daily | | | | | + + + +---------+ + + | aspirin 81 mg EC | Take 81 mg by mouth | | 0 | | | | tablet | Daily. | | | | 9 | + + + +---------+ + + | carvedilol (COREG) | Take 12.5 mg by | | 0 | | | | 12.5 mg tablet | mouth. | | | | 9 | + + + +---------+ + + | chlorproMAZINE | Take 1 tablet by | 90 | 2 | 11/10/19 | | | (THORAZINE) 25 mg | mouth 3 times daily. | tablet | | 18 | 9 | | tablet | | | | | | + + + +---------+ + + | hydrALAZINE | Take 25 mg by mouth. | | 0 | | | | (APRESOLINE) 25 mg | | | | | 9 | | tablet | | | | | | + + + +---------+ + + | hydrALAZINE | hydralazine Tab ( 50 | | 0 | 03/15/20 | | | (APRESOLINE) 50 MG | mg) 1 TABLET PO qid | | | 11 | 9 | | tablet | | | | | | + + + +---------+ + + | | hydrochlorothiazide | | 0 | 03/15/20 | | | hydroCHLOROthiazide | Tab ( 12.5 mg) 1 | | | 11 | 9 | | (HYDRODIURIL) 12.5 | TABLET PO Daily | | | | | | MG tablet | | | | | | + + + +---------+ + + | lisinopril | lisinopril Tab ( 20 | | 0 | 03/15/20 | | | (PRINIVIL, ZESTRIL) | mg) 1 TABLET PO BID | | | 11 | 9 | | 20 mg tablet | | | | | | + + + +---------+ + + | losartan (COZAAR) | Take 1 tablet by | | 0 | 11/14/19 | | | 50 mg tablet | mouth daily. | | | 19 | 9 | + + + +---------+ + + | losartan (COZAAR) | Take 50 mg by mouth | | 0 | | | | 50 mg tablet | Daily. | | | | 9 | + + + +---------+ + + documented as of this encounter Progress Notes Siomara Transaction, Provider Unknown - 12/12/2018 6:51 PM PDTFormatting of this note m ight be different from the original. Nurse Progress Note by Yvette Monroy RN at 12/12/181850 Author: Yvette Monroy RN Service: (none) Author Type: Registered Nurse Filed: 12/12/181851 Date of Service: 12/12/181850 Status: Signed Director Of Physical Therapy: Yvette Monroy RN (Registered Nurse) Pt given discharge instructions. Pt understands discharge instructions. IV's have been gwendolyn yari. onver nicole Charley, Provider Unknown - 12/12/2018 6:37 PM PDT Case Management by ELIZABETH Juarez at 12/12/181836 Author: ELIZABETH Juarez Service: (none) Author Type: Boiler Cleaner Filed: 12/12/181845 Date of Service: 12/12/181836 Status: Addendum Director Of Physical Therapy: ELIZABETH Juarez (Boiler Cleaner) Related Notes: Original Note by ELIZABETH Juarez (Boiler Cleaner) filed at 12/12/18 9 Received call from RN advising that patient's [place] [employer] Transport ride home has falle n through and now it is after hours (call received from RN at 5:30pm). 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 Taxi via [employer] $170, patient cites no other resources. Left message for CRM Supervisors regarding approval for transport v. Patient using [place] [employer] Transp ort tomorrow. 6:45pm received approval from John Durbin, fixed assets accountant to arrange [employer] for d/c home to [place]. Lead JASON Carter notified, as well as msg left for JASON Crawford. Jenny Mcfarland brigida 7:15, [employer]. docume nted in this encounter Plan of Treatment +--------+---------+ + + + | Date | Type | Specialty | Care Team | Description | +--------+---------+ + + + | 01/28/ | Office | Cardiology | Malik Samm Frank, | | | 2019 | Visit | | MD [address] | | | | | | [facility] [facility] [place] | | | | | | [address] | | | | | | | | +--------+---------+ + + + | 01/28/ | Office | Cardiology | Vannesa Martinez | | | 2019 | Visit | | SHIRA [address] | | | | | | [address] | | | | | | [place] [address] | | | | | | [phone] | | | | | | | | +--------+---------+ + + + documented as of this encounter Procedures + +--------+ + + + | Procedure Name | Priori | Date/Time | Associated Diagnosis | Comments | | | ty | | | | + +--------+ + + + | EXTERNAL LAB: [facility] | Routin | 12/12/2018 | | Results for this | | | e | 11:40 AM | | procedure are in the | | | | PDT | | results section. | + +--------+ + + + | BASIC METABOLIC | Routin | 12/12/2018 | | Results for this | | PANEL | e | 11:40 AM | | procedure are in the | | | | PDT | | results section. | + +--------+ + + + documented in this encounter Results External Lab: [facility] (12/12/2018 11:40 AM PDT) + + + + + + | Component | Value | Ref Range | Performed | Pathologist | | | | | At | Signature | + + + + + + | WBC | 9.08 | 3.80 - 11.00 | EXTERNAL | | | | | K/uL | LAB | | + + + + + + | RED CELL | 5.20 | 4.20 - 5.70 | EXTERNAL | | | COUNT | | M/uL | LAB | | + + + + + + | Hgb | 16.9 | 13.2 - 17.0 | EXTERNAL | | | | | g/dL | LAB | | + + + + + + | Hematocrit, | 47.6 | 39.0 - 50.0 % | EXTERNAL | | | POC | | | LAB | | + + + + + + | MCV | 91.6 | 80.0 - 100.0 fl | EXTERNAL | | | | | | LAB | | + + + + + + | MCH | 32.5 | 27.0 - 34.0 pg | EXTERNAL | | | | | | LAB | | + + + + + + | MCHC | 35.5 | 32.0 - 35.5 | EXTERNAL | | | | | g/dL | LAB | | + + + + + + | RDW-CV | 47.3 | 37 - 53 fl | EXTERNAL | | | | | | LAB | | + + + + + + | Platelet | 203 | 150 - 400 K/uL | EXTERNAL | | | Count | | | LAB | | | Plasma | | | | | + + + + + + | MPV | 7.7 | fl | EXTERNAL | | | | | | LAB | | + + + + + + | Differentia | AUTOMATED | | EXTERNAL | | | l Type | | | LAB | | + + + + + + | % Segmented | 67.93 | % | EXTERNAL | | | | | | LAB | | | Neutrophils | | | | | + + + + + + | % | 21.13 | % | EXTERNAL | | | Lymphocytes | | | LAB | | + + + + + + | % Monocytes | 8.23 | % | EXTERNAL | | | | | | LAB | | + + + + + + | % | 1.91 | % | EXTERNAL | | | Eosinophils | | | LAB | | + + + + + + | % Basophils | 0.80 | % | EXTERNAL | | | | | | LAB | | + + + + + + | Absolute | 6.17 | 1.90 - 7.40 | EXTERNAL | | | Segmented | | K/uL | LAB | | | Neutrophils | | | | | + + + + + + | Absolute | 1.92 | 1.00 - 3.90 | EXTERNAL | | | Lymphocytes | | K/uL | LAB | | + + + + + + | Absolute | 0.75 | 0.00 - 0.80 | EXTERNAL | | | Monocytes | | K/uL | LAB | | + + + + + + | Absolute | 0.17 | 0.00 - 0.50 | EXTERNAL | | | Eosinophils | | K/uL | LAB | | + + + + + + | Absolute | 0.07 | 0.00 - 0.10 | EXTERNAL | | | Basophils | | K/uL | LAB | | + + + + + + | Differentia | RBC AND PLT MORPHOLOGY | | EXTERNAL | | | l Comments | APPEAR NORMALComment: | | LAB | | | | Testing performed at | | | | | | [facility];[address] [place] [address] | | | | | | [facility];[place] [address] | | | | + + + + + + + + | Specimen | + + | Blood specimen | | (specimen) | + + + +---------+ + + | Performing | Address | City/State/Zipcode | Phone Number | | Organization | | | | + +---------+ + + | EXTERNAL LAB | | | | + +---------+ + + Basic Metabolic Panel (12/12/2018 11:40 AM PDT) + + + + + + | Component | Value | Ref Range | Performed | Pathologist | | | | | At | Signature | + + + + + + | Na | 143 | 135 - 145 | EXTERNAL | | | | | mmol/L | LAB | | + + + + + + | K | 4.1 | 3.5 - 4.9 | EXTERNAL | | | | | mmol/L | LAB | | + + + + + + | Cl | 105 | 99 - 109 mmol/L | EXTERNAL | | | | | | LAB | | + + + + + + | CO2 | 30 | 23 - 32 mmol/L | EXTERNAL | | | | | | LAB | | + + + + + + | Anion Gap | 12 | 5 - 20 mmol/L | EXTERNAL | | | | | | LAB | | + + + + + + | Glucose, | 111 (H) | 65 - 99 mg/dL | EXTERNAL | | | Fasting | | | LAB | | + + + + + + | BUN | 22 | 8 - 25 mg/dL | EXTERNAL | | | | | | LAB | | + + + + + + | Creatinine | 0.85 | 0.70 - 1.30 | EXTERNAL | | | | | mg/dL | LAB | | + + + + + + | BUN/Creatin | 26 | | EXTERNAL | | | ine Ratio | | | LAB | | + + + + + + | Calcium | 9.9 | 8.5 - 10.5 | EXTERNAL | | | | | mg/dL | LAB | | + + + + + + | Estimated | >60Comment: GFR <60: | mL/min/1.73m2 | EXTERNAL | | | GFR | CHRONIC KIDNEY DISEASE, | | LAB | | | | IF FOUND OVER A 3 MONTH | | | | | | PERIOD.GFR <15: KIDNEY | | | | | | FAILURE.FOR | | | | | | AMERICANS, MULTIPLY THE | | | | | | CALCULATED GFR BY | | | | | | 1.210.This eGFR is | | | | | | calculated using the | | | | | | MDRD IDMS traceable | | | | | | equation.Testing | | | | | | performed at [facility];[address] | | | | | | [facility];[place], [place] | | | | | | [address] | | | | + + + + + + + + | Specimen | + + | Blood specimen | | (specimen) | + + + +---------+ + + | Performing | Address | City/State/Zipcode | Phone Number | | Organization | | | | + +---------+ + + | EXTERNAL LAB | | | | + +---------+ + + documented in this encounter Visit Diagnoses + + | Diagnosis | + + | Benign essential hypertension Essential hypertension, benign | + + | Atrial fibrillation with RVR (HCC) Atrial fibrillation | + + | Acute combined systolic and diastolic congestive heart failure (HCC) Acute combined | | systolic and diastolic heart failure | + + documented in this encounter
--- OUTSIDE RECORDS SUMMARY | ~2019-09-04 | XMS | Encounter Summary ---
Demographics + + + | Address | [address] | | | [place] [address] | + + + | Home Phone | | + + + | Preferred Language | Unknown | + + + | Marital Status | Unknown | + + + | Oriental Orthodox Affiliation | Unknown | + + + [...] + | Taurus Sal[place] | ECON | [place] | | | | | [address] | | + + + + + | Detailed Message | ECON | Unknown | | + + + + + Care Team Providers + +------+ + | Care Corrections Counselor Name | Role | Phone | + +------+ + | Kenny Hernandez DO | PCP | | + +------+ + Reason for Visit + + + | Reason | Comments | + + + | Follow-up | | + + + Evaluate & Treat (Routine) + +--------+ + + + + | Status | Reason | Specialty | Diagnoses / | Referred By | Referred To | | | | | Procedures | Contact | Contact | + +--------+ + + + + | Authorized | | Cardiology | Diagnoses | Buck, | Anamaria, | | | | | | Diasy | MD Gabe | | | | | Cardiomyopat | Dedra, | [address] | | | | | hy, | PA-C [address] | | | | | unspecified | [address] | [place], [place] | | | | | ([facility]) | Ave | [address] Phone: | | | | | | [place], | [phone] | | | | | | [place] | Fax: | | | | | | [address] | [phone] | | | | | | Phone: | | | | | | | [phone] | | | | | | | Fax: | | | | | | | [phone] | | + +--------+ + + + + Encounter Details +--------+---------+ + + + | Date | Type | Department | Care Team | Description | +--------+---------+ + + + | 07/30/ | Office | [facility] | Gabe Persaud, | Chronic systolic | | 2019 | Visit | CARDIOLOGY [place] | [address] | congestive heart | | | | [address] | [place], [place] | failure (HCC) | | | | [address] [place] [address] | [address] | (Primary Dx); | | | | [place] | | Essential | | | | [address] | | hypertension, | | | | [phone] | | benign; Persistent | | | | | | atrial fibrillation; | | | | | | Cerebrovascular | | | | | | accident (CVA) due | | | | | | to thrombosis of | | | | | | cerebral artery | | | | | | (HCC); Chronic | | | | | | atrial fibrillation | +--------+---------+ + + + Social History + + [...] + +---------+ + | Alcohol Use | Drinks/Week | oz/Week | Comments | + + +---------+ + | Yes | 0 Standard drinks | 21.0 | | | | or equivalent 21 | | | | | Shots of liquor | | | + + +---------+ + [...] + + + | Blood Pressure | 146/106 | 07/30/2019 2:26 PM | | | | | PST | | + + + + + | Pulse | 104 | 07/30/2019 2:26 PM | | | | | PST | | + + + + + | Temperature | - | - | | + + + + + | Respiratory Rate | - | - | | + + + + + | Oxygen Saturation | 96% | 07/30/2019 2:26 PM | | | | | PST | | + + + + + | Inhaled Oxygen | - | - | | | Concentration | | | | + + + + + | Weight | 92.2 kg (203 lb 3.2 | 07/30/2019 2:26 PM | | | | oz) | PST | | + + + + + | Height | 172.7 cm (5' 8") | 07/30/2019 2:26 PM | | | | | PST | | + + + + + | Body Mass Index | 30.9 | 07/30/2019 2:26 PM | | | | | PST | | + + + + + [...] documented as of this encounter Progress Notes Gabe Persaud MD - 07/30/2019 2:45 PM PSTFormatting of this note might be different f rom the original. Date of visit: 07/30/2019 Primary Care Physician: Kenny Hernandez DO CHIEF COMPLAINT: Chief Complaint Patient presents with Follow-up HISTORY OF PRESENT ILLNESS: Taurus is 54 y.o. here for follow-up visit. Chronic atrial fibrillation and nonischemic car diomyopathy secondary to tachycardia induced. Has been on rate control strategy and anticoa gulation. Since prior evaluation his weight has been stable. Continues to have recurrent syncopal episodes. Had 1 month event monitor that did not show any significant bradycardia only pauses during sleep time. The longest was only 2.3 seconds. No report of seizure activity. Seen on 11/13/2018 was in acute congestive heart failure, atrial fibrillation with RVR. Pre mature discharge from the hospital. Was started on Torsemide, increased carvedilol and losartan doses, added digoxin. Was hospitalized initially and [facility] in November 2018 secondary to atrial fibrilla tion and rapid ventricular response. Was treated with diltiazem IV, that caused hypotension and cardiogenic shock then transferr ed to [facility] for cardiac evaluation despite the fact that [facility] have ca rdiology service. Patient was admitted to intensive care unit. Was treated with medical management. Of note on his admission to [facility] he was tested positive for cannabinoids and o piates. Past medical history, SH, FH, and medications were reviewed in the chart. Medications: Outpatient Encounter Medications as of 07/30/2019 Medication Sig Dispense Refill [DISCONTINUED] acetaminophen (TYLENOL) 325 mg tablet Tylenol Tab ( 325 mg) 2-3 TABLETS PO q4-6hr prn albuterol-ipratropium (DUONEB) 2.5-0.5 mg/3 mL SOLN Take 3 mLs by nebulization. amLODIPine (NORVASC) 10 MG tablet amlodipine Tab ( 10 mg) 1 TABLET PO Daily amLODIPine (NORVASC) 5 mg tablet Take 5 mg by mouth Daily. aspirin 325 mg tablet aspirin Tab ( 325 mg) 1 TABLET PO Daily aspirin 81 mg EC tablet Take 81 mg by mouth Daily. carvedilol (COREG) 12.5 mg tablet Take 12.5 mg by mouth. carvedilol (COREG) 25 mg tablet Take 1 tablet by mouth 2 (two) times daily with meals. [DISCONTINUED] chlorproMAZINE (THORAZINE) 25 mg tablet Take 1 tablet by mouth 3 times d aily. 90 tablet 2 digoxin (LANOXIN) 125 mcg tablet Take 1 tablet by mouth daily. hydrALAZINE (APRESOLINE) 25 mg tablet Take 25 mg by mouth. hydrALAZINE (APRESOLINE) 50 MG tablet hydralazine Tab ( 50 mg) 1 TABLET PO qid hydroCHLOROthiazide (HYDRODIURIL) 12.5 MG tablet hydrochlorothiazide Tab ( 12.5 mg) 1 T ABLET PO Daily lisinopril (PRINIVIL, ZESTRIL) 20 mg tablet lisinopril Tab ( 20 mg) 1 TABLET PO BID losartan (COZAAR) 50 mg tablet Take 1 tablet by mouth daily. losartan (COZAAR) 50 mg tablet Take 50 mg by mouth Daily. spironolactone (ALDACTONE) 25 mg tablet Take 1 tablet by mouth daily. torsemide (DEMADEX) 20 mg tablet Take 1 tablet by mouth daily as needed. For lower ext ankles edema or weight gain warfarin (COUMADIN) 5 mg tablet TAKE 1 TABLET BY MOUTH ONCE DAILY No facility-administered encounter medications on file as of 07/30/2019. Allergies No Known Allergies REVIEW OF SYSTEMS: Constitutional: Positive for fatigue, weight has been stable. HEENT: Negative for nosebleeds, ear discharge, nasal congestion or soar throat. Eyes: Negative for visual disturbance, redness, or secretion. Respiratory: Negative for cough, sputum production, hemoptysis, wheezing. Cardiovascular: As HPI. Gastrointestinal: Negative for nausea, vomiting, diarrhea, abdominal pain and blood in stoo l. Genitourinary: Negative for dysuria or hematuria. Musculoskeletal: chronic arthritic pain. Skin: Negative for rash. Neurological: recurrent syncopal episodes. No numbness. No recent falls. No slurred speech. Hematological: No significant bruising. Psychiatric/Behavioral: No depression or anxiety. PHYSICAL EXAM Vital Signs: BP (!) 146/106 | Pulse 104 | Ht 1.727 m (5' 8") | Wt 92.2 kg (203 lb 3.2 oz) | SpO2 96% | BMI 30.90 kg/m GENERAL APPEARANCE: Alert, oriented, cooperative, no distress, appears stated age. HEENT: Extraocular movements were intact. No jaundice. Pupiles round and reactive. NECK: No JVD, lymphadenopathy. Carotid upstrokes normal. No carotid bruit heard. CARDIAC: Irregular irregular. CHEST: Normal bilateral symmetrical chest excursion.ackles or wheezing. No evidence of dull ness. ABDOMEN: Soft.No tenderness or guarding. No palpable organs. Active bowel sounds. EXTREMITIES: No lower extremities edema, cyanosis or clubbing. NEURO: Alert and oriented times three with no focal deficit. Cranial nerves are grossly no rmal. SKIN: Warm and dry. No rash. Psych: Normal affect and mood. DATA 11/02/2018 BNP 493. Sodium 142, chloride 402, potassium 102, bicarb 22, BUN 15, creatinine 1.00, GFR 78. AST 41, ALT 51, alk phos 60, magnesium 1.4, WBC 7.6, hemoglobin 13.9, platelets 240. Lab Results Component Value Date/Time NA 143 12/12/2018 11:40 AM NA 142 11/07/2018 03:13 AM NA 138 11/06/2018 04:08 AM K 4.1 12/12/2018 11:40 AM K 4.0 11/07/2018 03:13 AM K 3.7 11/06/2018 04:08 AM CO2 30 12/12/2018 11:40 AM CO2 28 11/07/2018 03:13 AM CO2 27 11/06/2018 04:08 AM BUN 22 12/12/2018 11:40 AM BUN 19 11/07/2018 03:13 AM BUN 21 11/06/2018 04:08 AM CREA 1.26 11/03/2018 04:30 PM CREA 0.63 (L) 11/03/2018 06:09 AM CREA 0.86 01/20/2016 05:10 PM CALCIUM 9.9 12/12/2018 11:40 AM CALCIUM 8.3 (L) 11/07/2018 03:13 AM CALCIUM 8.9 11/06/2018 04:08 AM CALCIUM 9.8 11/03/2018 04:30 PM CALCIUM 9.6 11/03/2018 06:09 AM CALCIUM 10.0 01/20/2016 05:10 PM MG 1.9 11/07/2018 03:13 AM MG 2.1 11/06/2018 04:08 AM MG 2.2 11/05/2018 04:16 AM Lab Results Component Value Date/Time WBC 9.08 12/12/2018 11:40 AM WBC 6.70 11/07/2018 03:13 AM WBC 6.32 11/06/2018 04:08 AM WBC 13.2 (H) 11/03/2018 04:30 PM WBC 10.4 11/03/2018 06:09 AM HGB 16.9 12/12/2018 11:40 AM HGB 14.4 11/07/2018 03:13 AM HGB 13.7 11/06/2018 04:08 AM HGB 15.7 11/03/2018 04:30 PM HGB 14.8 11/03/2018 06:09 AM HCT 47.4 11/03/2018 04:30 PM HCT 43.4 11/03/2018 06:09 AM MCV 91.6 12/12/2018 11:40 AM MCV 100.7 (H) 11/07/2018 03:13 AM MCV 100.2 (H) 11/06/2018 04:08 AM MCV 98.8 11/03/2018 04:30 PM MCV 96.0 11/03/2018 06:09 AM LABPLAT 203 12/12/2018 11:40 AM LABPLAT 212 11/07/2018 03:13 AM LABPLAT 189 11/06/2018 04:08 AM Lab Results Component Value Date ALT 48 11/05/2018 ALT 32 11/03/2018 CHOL 166 11/03/2018 TRIG 68 11/03/2018 HDL 74 (H) 11/03/2018 LDLEX 119 (A) 02/23/2017 GLUF 111 (H) 12/12/2018 GLUF 129 (H) 11/07/2018 TSH 2.12 11/03/2018 EC04/18/[address] [facility] reviewed showed atrial fibrillation with rapid ventricular resp onse. Last Echo: 11/07/2018 LV is normal in size, mild left ventricular hypertrophy, severely impaired systolic functio n EF 20-25%. RV is severely enlarged with severely impaired systolic function. Moderate TR with mild pul monary hypertension RVSP 41 mmHg Last Stress test: 03/20/2018 Reported with normal LV size and function. No evidence of reversible defect to suggest isch emia. Last Cath: 12/12/2018 1. Left Dominant system. Single vessel coronary artery disease In inferior branch of large OM. Out of proportion of the cardiomyopathy, no need for intervention at this time. 2. Improved systolic function. Mildly impaired systolic function. 3. Nonischemic cardiomyopathy. Last US carotid: Event Monitor 03/27/2019 30-day event monitor. Average heart rate 109 bpm minimum heart rate 60 bpm. Multiple paus es longest 2.2 seconds. ASSESSMENT: Patient is 54 y.o. with the following medical problems: 1. Non ischemic Cardiomyopathy. 2. Chronic systolic and diastolic congestive heart failure, currently euvolemic NYH class I I, stage C. 3. Permanent atrial fibrillation, persistent CHADSVASc of 3. 4. Coronary artery disease, single OM branch. 5. History of alcohol abuse, 5-10 drinks a night. 6. Tobacco abuse. 7. Chronic obstructive pulmonary disease. 8. Hypertension. 9. Recurrent syncopal episodes without any prior symptoms. Plan: Continues to have syncopal episodes. Reviewed the event monitor again with the patient. Could not follow-up with electrophysiology will make attempt and arrange for drive. Continue with torsemide. We will continue on spironolactone 25 mg, increase losartan 100 mg p.o. daily, carvedilol 2 5 mg bid and digoxin 0.125 mg daily. Continue with warfarin. Will continue to monitor weight. Will be evaluated by EP team. Follow-up in 6 months or sooner if needed. *This report has been prepared using a voice recognition system. The report was reviewed fo r accuracy, however, sound-alike word errors, addition and/or deletions may occur. If there is any question about this report please contact me. Gabe Persaud MD, MPH documented in this encounter Plan of Treatment +--------+---------+ + + + | Date | Type | Specialty | Care Team | Description | +--------+---------+ + + + | 09/30/ | Office | Cardiology | Samm Malik, | | | 2019 | Visit | | [address] | | | | | | [place], [place] | | | | | | [id number] | | | | | | | | +--------+---------+ + + + | 01/28/ | Office | Cardiology | Vannesa Martinez | | 2019 | Visit | | [address]A [address] | | | | | | [address] | | | | | | [place] [address] | | | | | | [phone] | | | | | | | | +--------+---------+ + + + documented as of this encounter Visit Diagnoses + + | Diagnosis | + + | Chronic systolic congestive heart failure (HCC) - Primary Chronic systolic heart | | failure | + + | Essential hypertension, benign | + + | Persistent atrial fibrillation Atrial fibrillation | + + | Cerebrovascular accident (CVA) due to thrombosis of cerebral artery (HCC) | + + | Chronic atrial fibrillation Atrial fibrillation | + + documented in this encounter
--- OUTSIDE RECORDS SUMMARY | ~2019-09-04 | XMS | Encounter Summary ---
Demographics + + + | Address | [address] | | | [place] [address] | + + + | Home Phone | | + + + | Preferred Language | Unknown | + + + | Marital Status | Unknown | + + + | Baptism Affiliation | Unknown | + + + | Race | Unknown | + + + | Ethnic Group | Unknown | + + + Author + + + | Author | [facility] | | | and [place] | + + + | Organization | [facility] | | | and [place] | + + + | Address | Unknown | + + + | Phone | Unavailable | + + + Support + + + + + | Name | Relationship | Address | Phone | + + + + + | Taurus Salinas | ECON | [place] | | | | | [address] | | + + + + + | Detailed Message | ECON | Unknown | | + + + + + Care Team Providers + +------+ + | Care Top Screw Name | Role | Phone | + +------+ + | Kenny Hernandez DO | PCP | | + +------+ + Encounter Details +--------+ + + + + | Date | Type | Department | Care Team | Description | +--------+ + + + + | 04/18/ | Documentati | [facility] | Kelsie Reddy, | | | 2019 | on | CARDIOLOGY [place] | Technologist | | | | | [address] | | | | | | [facility] [place] | | | | | | [address] | | | | | | [phone] | | | +--------+ + + + [...] of beer | 35.0 - 70.0 | Alcoholic | | | 0 Standard drinks | | Drinks/day: whisky | | | or equivalent | | 5th daily | + + + + + + [...] + + documented as of this encounter Functional Status + + + [...] documented as of this encounter Progress Notes Kelsie Reddy, Technologist - 04/18/2019 11:59 PM PDTPt had a urgent report 04/18/19 16:14 207 BPM for possible afib / afl 200 BPM 30 day monitor was placed 03/27/19 Medications: ASA 81 MG Warfarin 5 MG Will continue to monitor Please see attachment Associated attestation - Gabe Conrad MD - 04/23/2019 8:31 AM PDTKnown chronic atria l fibrillation will continue to monitordocumented in this encounter Plan of Treatment +--------+---------+ + + + | Date | Type | Specialty | Care Team | Description | +--------+---------+ + + + | 09/30/ | Office | Cardiology | Samm Malik, | | | 2019 | Visit | | [address] | | | | | | [place] | | | | | | [address] | | | | | | | | +--------+---------+ + + + | 01/28/ | Office | Cardiology | Vannesa Martinez | | | 2019 | Visit | | [address] | | | | | | [address] | | | | | | [place] [address] | | | | | | [phone] | | | | | | | | +--------+---------+ + + + documented as of this encounter Visit Diagnoses Not on filedocumented in this encounter"
--- OUTSIDE RECORDS SUMMARY | ~2019-09-04 | XMS | Encounter Summary ---
Demographics + + + | Address | [address] | | | [place] [address] | + + + | Home Phone | | + + + | Preferred Language | Unknown | + + + | Marital Status | Unknown | + + + | Pentecostalism Affiliation | Unknown | + + + | Race | Unknown | + + + | Ethnic Group | Unknown | + + + Author + + + | Author | [facility] | | | and [place] | + + + | Organization | [facility] | | | and [place] | + + + | Address | Unknown | + + + | Phone | Unavailable | + + + Support + + + + + | Name | Relationship | Address | Phone | + + + + + | Taurus Salinas | ECON | [place] | | | | | [address] | | + + + + + | Detailed Message | ECON | Unknown | | + + + + + Care Team Providers + +------+ + | Care Program Management Specialist Name | Role | Phone | + +------+ + | Kenny Hernandez DO | PCP | | + +------+ + Reason for Visit +--------+ + | Reason | Comments | +--------+ + | Other | | +--------+ + Encounter Details +--------+ + + + + | Date | Type | Department | Care Team | Description | +--------+ + + + + | 05/09/ | Telephone | [facility] | [place], | Jeana | | 2017 | | GASTROENTEROLOGY | [address] | | | | | [address] | [place], [address] | | | | | [address] | [place] | | | | | [address] | [id number] | | | | | [phone] | | | +--------+ + + + [...] | Visit | | MD [address] | | | | | | [place] | | | | | | [address] | | | | | | | | +--------+---------+ + + + | 01/28/ | Office | Cardiology | Vannesa Martinez | | | 2019 | Visit | | [address] | | | | | | [address] | | | | | | [place] [address] | | | | | | [phone] | | | | | | | | +--------+---------+ + + + documented as of this encounter Visit Diagnoses Not on filedocumented in this encounter"
--- OUTSIDE RECORDS SUMMARY | ~2019-09-04 | XMS | Encounter Summary ---
Demographics + + + | Address | [address] | | | [place] [address] | + + + | Home Phone | | + + + | Preferred Language | Unknown | + + + | Marital Status | Unknown | + + + | Caodaism Affiliation | Unknown | + + + | Race | Unknown | + + + | Ethnic Group | Unknown | + + + Author + + + | Author | [facility] | | | and [place] | + + + | Organization | [facility] | | | and [place] | + + + | Address | Unknown | + + + | Phone | Unavailable | + + + Support + + + + + | Name | Relationship | Address | Phone | + + + + + | Taurus Salinas | ECON | [place] | | | | | [address] | | + + + + + | Detailed Message | ECON | Unknown | | + + + + + Care Team Providers + +------+ + | Care Linoleum Installer Name | Role | Phone | + [...] | [address] | [place], [address] | | | | | [address] | [place] | | | | | [address] | [id number] | | | | | [phone] | | | +--------+ + + + [...] [place] | | | | | | [address] | | | | | | | | +--------+---------+ + + + | 01/28/ | Office | Cardiology | Vannesa Martinez | | | 2019 | Visit | | [address] | | | | | | [address] | | | | | | [place] [address] | | | | | | [phone] | | | | | | | | +--------+---------+ + + + documented as of this encounter Visit Diagnoses Not on filedocumented in this encounter"
--- OUTSIDE RECORDS SUMMARY | ~2019-09-04 | XMS | Encounter Summary ---
Demographics + + + | Address | [address] | | | [place] [address] | + + + | Home Phone | | + + + | Preferred Language | Unknown | + + + | Marital Status | Unknown | + + + | Zoroastrianism Affiliation | Unknown | + + + | Race | Unknown | + + + | Ethnic Group | Unknown | + + + Author + + + | Author | [facility] | | | and [place] | + + + | Organization | [facility] | | | and [place] | + + + | Address | Unknown | + + + | Phone | Unavailable | + + + Support + + + + + | Name | Relationship | Address | Phone | + + + + + | Taurus Salinas | ECON | [place] | | | | | [phone] | | + + + + + | Detailed Message | ECON | Unknown | | + + + + + Care Team Providers + +------+ + | Care Track Repairer Name | Role | Phone | + +------+ + | Kenny Saenz DO | PCP | | + +------+ + Encounter Details +--------+ + + + + | Date | Type | Department | Care Team | Description | +--------+ + + + + | 11/03/ | Hospital | [facility] | Dony Verma MD | Cardiogenic shock | | 2019 - | Encounter | [facility] | [address] | ([facility]LY [facility]) | | | | CARE FLOOR [phone] | [address] [address] [place], [place] | | | [address]/ | | [address] | [id number] | | | [address] | | [place], [place] | | | | | | [address] | | | | | | [phone] | | | +--------+ + + + [...] + + + | Blood Pressure | 129/98 | 11/07/2018 11:16 AM | | | | | PST | | + + + + + | Pulse | 100 | 11/07/2018 11:16 AM | | | | | PST | | + + + + + | Temperature | 37 C (98.6 F) | 11/07/2018 11:16 AM | | | | | PST | | + + + + + | Respiratory Rate | 18 | 11/07/2018 11:16 AM | | | | | PST | | + + + + + | Oxygen Saturation | - | - | | + + + + + | Inhaled Oxygen | - | - | | | Concentration | | | | + + + + + | Weight | 90.8 kg (200 lb 1.6 | 11/07/2018 11:16 AM | | | | oz) | PST | | + + + + + | Height | 175.3 cm (5' 9") | 11/07/2018 11:16 AM | | | | | PST | | + + + + + | Body Mass Index | 29.55 | 11/07/2018 11:16 AM | | | | | PST | [...] documented as of this encounter Discharge Summaries Betty Perkins MD - 11/07/2018 5:19 AM PSTFormatting of this note might be differen t from the original. Discharge Summaries by Betty Perkins MD at 11/07/18518 Author: Betty Perkins MD Service: Hospitalist Author Type: Physician Filed: 11/07/18 1863 Date of Service: 11/07/18518 Status: Addendum Merchandising Intern: Betty Perkins MD (Physician) Related Notes: Original Note by Betty Perkins MD (Physician) filed at 11/07/18 8186 [facility] Service: Hospitalist Physician Discharge Summary Patient ID: Taurus Domínguez [id number] 53 y.o. Admit date: 11/03/2018 Discharge date: 11/07/18 Admitting Physician: Dony Verma MD Discharge Physician: Betty Perkins MD Consultants: Treatment Team: Admitting Provider: Dony Verma MD Primary Discharge Diagnoses: Active Problems: Alcohol dependence (HCC) COPD (chronic obstructive pulmonary disease) Coronary artery disease Essential hypertension, benign Personal history of tobacco use, presenting hazards to health Alcohol abuse History of methamphetamine abuse Panlobular emphysema (HCC) Thoracic aortic aneurysm without rupture (HCC) Cardiomegaly HPI and Hospital Course: From HPI Per ICU Ellie BANGURA 11/03/18 The patient is a 53 y.o.malewith significant past medical history of COPD, HTN, CVA, al cohol abuse (historically, was drinking a fifth of hard liquor per day, but [place] docum entation indicates he quit years ago),and methamphetamine abusewho presents in transfer from [facility] where he was being treated for new onset atrial fibrillation andcardiogeni c shock. He originally presented to the hospital in [place] after waking up on the morni ng of 11/02 with severe epigastric pain radiating up his chest. He c/o nausea, but denied vo miting. In [place], he was found to be in Afib with RVR, and was given a cardizem bolus. Troponin was minimally elevated at this time, and he was hemodynamically stable. He was transferred to [facility] in [place] due to the need for cardiology consult. His epig astric pain had resolved at that time, and patient's rate was controlled but remained in atr ial fib. After transfer to [facility], patient remained on the cardizem drip. A drug screen was do ne which was positive for cannabinoids and opiates. EKG showed atrial fibrillation with RV R, left anterior fascicular block, anteroseptal infarct (age undetermined), and T-wave abnor mality. A transthoracic echo was one on the morning of 11/03, and patient was found to hav e an EF of 20%, which was not previously known. Cardiogenic shock, developed at [facility] on the afternoon of 11/03/18 after being on Cardizem. Patient had to be briefly paced due t o symptomatic bradycardia with rate down to the 30s. Patient was started on dopamine, nore pinephrine, and later added epinephrine. The cbx operator service at [facility] was consulted, and the patient was transferred to our ICU for further management 11/07/18 For Discharge Patient admitted, per above and managed/diagnosed with: New onset atrial fibrillation with RVR associated with chest pain on presentationand mild troponin elevation. -Remains in atrial fib,rate-controlled. Denies chest pain. -Troponin trended down - likely elevated due to demand ischemia. -He denies chest pain. - Have not started on anticoagulation due to patient's use of alcohol and math use. History of CVA. -Continue daily aspirin. History of alcohol dependence and methamphetamine abuse. Last drink/ use unknown. Continued CIWA protocol. Patient educated Cardiomyopathy w/ ef 20-25% -Appears to be a new diagnosis. Patient found to have an EF of 20% while at [facility]. Echo here showed EF 20-25% -Cardiogenic shock - developed in the setting of calcium channel jenise use in pt with unr ecognized cardiomyopathy. Resolved. -Weaned off epinephrine and levophed on 11/04. -Patient was intubated for airway protection in the setting of cardiogenic shock. Extubat ed on 11/04. -Continued with Spironolactone, Coreg and Losartan. Norvasc started in ICU has been discont inued. Discussed with Cardiology -Due to patient's alcohol and meth use, will not start anticoagulation at this time. Perha ps if he stops, this can be considered. Coronary artery disease. -Continue aspirin. -Lipid panel was checked at [facility] - all values normal. Essential hypertension Antihypertensives were restarted with the exception of Norvasc. Thoracic aortic aneurysm without rupture. Monitor COPD/ panlobular emphysema. - Not in acute exacerbation. - Albuterol PRN wheezing. - History of tobacco use - documentation from [facility] states he quit years ago. Epigastric pain on presentation to first facility. - Lipase/amylase were normal. - Ultrasound of abdomen negative. Denies any epigastric pain. History of elevated liver enzymes, secondary to alcohol abuse. Currently normal.Educated Acute kidney injury, secondary to cardiogenic shock. - Resolved. -Renally dose medications, avoid nephrotoxins. -Monitored electrolytes and replace per protocol. Bibasilar opacities suspicious for pneumonia. Continued ceftriaxone for five days- first dose received on 11/03 at [facility] . Procalci tonin was normal Remained afebrile. Blood cultures --showed no growth. Sepsis rulled out All questions were answered for patient who agreed to plan. Discharged in stable conditio n. Prognosis is guarded in light of severe cardiomyopathy and alcohol and drug use. Past Medical History: Past Medical History Diagnosis Date COPD (chronic obstructive pulmonary disease) (HCC) Hypertension No past surgical history on file. Discharged Condition: Stable for discharge as stated above. Significant Diagnostic Studies: Xr Chest 1 View Result Date: 11/06/2018 1. Right basilar infiltrate versus atelectasis and small right effusion 2. Cardiomegaly wit hout overt failure 3. Interval extubation and removal of the nasogastric tube. Signed by: Larry Donnelly Sign Date/Time: 11/06/2018 2:24 PM Us Abdomen Limited Result Date: 11/04/2018 1. Heterogeneous thickened gallbladder wall. Negative sonographic Harden sign. No shadowi ng gallstones evident. No dilated intrahepatic or extrahepatic bile ducts. 2. Mild hepatome alison. Minimal ascites fluid seen adjacent to the right lobe of the liver. Signed by: MD Louie, Dr. Evans Sign Date/Time: 11/04/2018 3:04 AM Discharge Vitals: Vitals: 11/07/18 0259 11/07/18 0735 11/07/18 0855 11/07/18 1115 BP: 139/87 (!) 143/98 (!) 144/99 (!) 129/98 BP Location: Left forearm Left forearm Left forearm Left forearm Pulse: 87 105 97 100 Resp: 18 Temp: 98.3 F (36.8 C) 98.4 F (36.9 C) 98.6 F (37 C) TempSrc: Axillary Oral Oral SpO2: 97% 97% 95% Weight: Height: Discharge Exam: General: Well nourished. Psych: Alert and oriented x 3. Calm, cooperative. Cardiovascular: Regular rate and rhythm, no murmurs, no thrills. Normal PMI. Respiratory: Clear to auscultation, no wheezing or crackles, breathing non labored. Gastrointestinal: Soft, non-tender, non-distended, positive bowel sounds. No HSM. Musculoskeletal: No edema in bilateral lower extremities. No joint swelling. Skin: Warm and dry, no rashes. Neck: No JVD, Trachea midline. Neurological: Non focal. Motor grossly intact. LABS: Recent Labs Lab 11/07/1831211/06/18 0408 11/05/18 0416 WBC 6.70 6.32 8.02 RBC 4.42 4.18* 4.32 HGB 14.4 13.7 14.4 HCT 44.5 41.9 43.2 MCV 100.7* 100.2* 100.0 MCH 32.5 32.7 33.3 MCHC 32.3 32.7 33.3 RDW 52.5 52.9 51.6 PLT 212 189 189 MPV 9.5 8.9 8.7 DIFFTYPE AUTOMATED AUTOMATED AUTOMATED Recent Labs Lab 11/07/1831211/06/18 0408 11/05/18 0907 11/05/18 0416 NA 142 138 -- 138 K 4.0 3.7 4.1 3.6 CL 105 101 -- 100 CO2 28 27 -- 26 BUN 19 21 -- 27* CREATININE 0.70 0.7 -- 0.9 PROT -- -- -- 5.5* BILITOT -- -- -- 2.4* ALT -- -- -- 48 AST -- -- -- 26 GLUF 129* 91 -- 97 Recent Labs Lab 11/04/18 1408 11/04/18 0743 11/04/18 0112 CKTOTAL 38* 32* 32* TROPONINI 0.113* 0.139* 0.168* CKMBINDEX 6.8 7.2 7.5 Recent Labs Lab 11/07/18 0313 11/06/18 0408 11/05/18 0416 PHOS 3.6 3.1 3.4 Recent Labs Lab 11/07/18 0313 11/06/18 0408 11/05/18 0416 MG 1.9 2.1 2.2 Invalid input(s): ABG Disposition: Follow up: Mykel Saenz, DO [address] [place] [address] In 3 days [facility] [address] [place] [facility] [address] In 4 days Medication List START taking these medications spironolactone 25 MG tablet QTY: 30 tablet Refills: 11 Commonly known as: ALDACTONE Take 1 tablet by mouth daily. Start taking on: 11/08/2018 CHANGE how you take these medications losartan 25 MG tablet QTY: 30 tablet Refills: 11 Commonly known as: COZAAR Take 1 tablet by mouth daily. What changed: medication strength how much to take CONTINUE taking these medications aspirin 81 MG tablet Refills: 0 carvedilol 25 MG tablet Refills: 0 Commonly known as: COREG ipratropium-albuterol 0.5-2.5 mg/3mL Refills: 0 Commonly known as: DUO-NEB omeprazole 20 MG EC tablet Refills: 0 Commonly known as: priLOSEC You might also be taking other medications not listed above. If you have questions about an y of your other medications, talk to the person who prescribed them or your Primary Care Pro vider. STOP taking these medications AMLODIPINE BESYLATE PO HYDRALAZINE HCL PO Where to Get Your Medications These medications were sent to [facility] [address] [place] [address] - [address] [facility] [place] [address] losartan 25 MG tablet spironolactone 25 MG tablet Betty Perkins MD 11/07/2018 1:58 PM Discharge took>30 minutes, to include final examination, discussion of admission, and pre paration of prescriptions, instructions for ongoing care, follow up and dictation of summary . documented in t his encounter Medications at Time of Discharge + [...] documented as of this encounter Progress Notes Conversion Transaction, Provider Unknown - 11/07/2018 2:24 PM PSTFormatting of this note m ight be different from the original. Progress Notes by Samm Hodges RN at 11/07/18 1424 Author: Samm Hodges RN Service: (none) Author Type: Registered Nurse Filed: 11/07/18 1426 Date of Service: 11/07/181423 Status: Signed Merchandising Intern: Samm Hodges RN (Registered Nurse) DC instructions discussed with Pt, with empasis on drug/ETOH cessation and cardiology follo w up. PICC line DC'd. Pt waiting for ride home. Pt will be transported by friend. SAMM MASON RN onver nicole Transaction, Provider Unknown - 11/07/2018 2:12 PM PST Case Management by Zulay Bridges RN at 11/07/18 3715 Author: Zulay Bridges RN Service: (none) Author Type: Registered Nurse Filed: 11/07/18 1413 Date of Service: 11/07/18 1412 Status: Signed Merchandising Intern: Zulay Bridges RN (Registered Nurse) 11/07/18 1410 Anticipated Disposition Facility Type Home Medicare Important Message (SAEID) Not applicable Disposition: home. Transportation: friend. Medicare important message: N/A. ZULAY BRIDGES onver nicole Transaction, Provider Unknown - 11/07/2018 1:42 PM PST Case Management by Zulay Bridges RN at 11/07/18 1342 Author: Zulay Bridges RN Service: (none) Author Type: Registered Nurse Filed: 11/07/18 1345 Date of Service: 11/07/18 1342 Status: Addendum Merchandising Intern: Zulay Bridges RN (Registered Nurse) Related Notes: Original Note by Zulay Bridges RN (Registered Nurse) filed at 11/07/[address] Perkins: May be medically ready later today or tomorrow pending plans on ec ho results. onver nicole Transaction, Provider Unknown - 11/07/2018 11:12 AM PST Therapy Progress Note by DOMENIC Lopez/Melissa at 11/07/18 1112 Author: RAJIV Lopez Service: (none) Author Type: Occupational Therapist Filed: 11/07/18 1113 Date of Service: 11/07/18 1112 Status: Signed Merchandising Intern: RAJIV Lopez (Occupational Therapist) 11/07/18 1112 OT Last Visit OT Received On 11/07/18 Requires OT Follow Up No Other Comments Comments Per discussion with RN and review of PT documentation, pt is independent at this t manjit, no need for skilled OT services, will d/c eval orders at this time. If pt status change s please alert OT and we can re-eval pt. Thank you Plan Progress Discontinue OT onver nicole Transaction, Provider Unknown - 11/06/2018 6:44 PM PST Progress Notes by Samm Hodges RN at 11/06/181843 Author: Samm Hodges RN Service: (none) Author Type: Registered Nurse Filed: 11/06/181845 Date of Service: 11/06/181843 Status: Signed Merchandising Intern: Samm Hodges RN (Registered Nurse) Pt disappointed that he wasn't DC'd today. [facility] MD ordered an Echo today, but radiologic technologist mammogram's schedule was full, and was unable to see Pt t cheng. They said that they would try to see Pt in a.m. No acute changes in Pt's status toda y. Chart check done. SAMM HODGES RN onver nicole Transaction, Provider Unknown - 11/06/2018 7:48 AM PST Nurse Progress Note by Lisa Salinas RN at 11/06/18747 Author: Lisa Salinas RN Service: (none) Author Type: Registered Nurse Filed: 11/06/1849 Date of Service: 11/06/18747 Status: Signed Merchandising Intern: Lisa Salinas RN (Registered Nurse) Patient vitals stable, no acute changes. End of shift audit complete. Betty Wiggins MD - 11/06/2018 5:33 AM PST Progress Notes by Betty Perkins MD at 11/06/18532 Author: Betty Perkins MD Service: Hospitalist Author Type: Physician Filed: 11/06/18 1323 Date of Service: 11/06/18532 Status: Signed Merchandising Intern: Betty Perkins MD (Physician) [facility] Service: Hospitalist Progress Note Hospital Day: LOS: 3 days SUBJECTIVE Patient Summary: From HPI Per ICU Ellie Mcpherson WILLEM 11/03/18 The patient is a 53 y.o. male with significant past medical history of COPD, HTN, CVA, alco hol abuse (historically, was drinking a fifth of hard liquor per day, but [facility] documen tation indicates he quit years ago), and methamphetamine abuse who presents in transfer from [facility] where he was being treated for new onset atrial fibrillation and cardiogenic ирина ck. He originally presented to the hospital in [place] after waking up on the morning of 11/02 with severe epigastric pain radiating up his chest. He c/o nausea, but denied vomiting. In [place], he was found to be in Afib with RVR, and was given a cardizem bolus. Tropon in was minimally elevated at this time, and he was hemodynamically stable. He was transferr ed to [facility] in [place] due to the need for cardiology consult. His epigastric pain had resolved at that time, and patient's rate was controlled but remained in atrial fib. After transfer to [facility], patient remained on the cardizem drip. A drug screen was don e which was positive for cannabinoids and opiates. EKG showed atrial fibrillation with RVR, left anterior fascicular block, anteroseptal infarct (age undetermined), and T-wave abnorma lity. A transthoracic echo was one on the morning of 11/03, and patient was found to have an EF of 20%, which was not previously known. Cardiogenic shock, developed at [facility] on t afternoon of 11/03/18 after being on Cardizem. Patient had to be briefly paced due to symp tomatic bradycardia with rate down to the 30s. Patient was started on dopamine, norepinephr ine, and later added epinephrine. The cbx operator service at [facility] was consulted, and the patient was transferred to our ICU for further management. 11/06/18 States he feels great and wants to go home. Denies CP, SOB. Afebrile. Scheduled Medications amLODIPine 5 mg Oral Daily aspirin 325 mg Oral Daily with breakfast carvedilol 12.5 mg Oral BID WC cefTRIAXone 1 g Intravenous Q24H docusate sodium 100 mg Oral BID Or docusate 100 mg Per OG Tube BID enoxaparin 1 mg/kg Subcutaneous Q12H folic acid 1 mg Oral Daily losartan 25 mg Oral Daily spironolactone 25 mg Oral Daily thiamine 100 mg Oral Daily Continuous Infusions PRN Medications acetaminophen OR acetaminophen, albuterol, chlordiazePOXIDE, nystatin, ondansetron OR ondansetron, petrolatum OBJECTIVE Vital Signs: BP 119/83 (BP Location: Left forearm) | Pulse 96 | Temp 98.1 F (36.7 C) (Oral) | Res p 18 | Ht 1.753 m (5' 9") | Wt 90.8 kg (200 lb 1.6 oz) | SpO2 94% | BMI 29.55 kg/m Patient Vitals for the past 24 hrs: BP Temp Temp src Pulse Resp SpO2 Height Weight 11/06/18 0406 119/83 98.1 F (36.7 C) Oral 96 18 94 % - - 11/05/18 2250 125/81 98.2 F (36.8 C) Oral 97 20 95 % - - 11/05/18 2023 111/88 98.8 F (37.1 C) Oral 94 20 95 % - - 11/05/18 1706 112/83 - - 102 - - - - 11/05/18 1603 111/68 98.4 F (36.9 C) Oral 108 20 92 % - - 11/05/18 1410 (!) 145/105 98.4 F (36.9 C) Oral 69 20 94 % 1.753 m (5' 9") 90.8 kg (200 lb 1.6 oz) 11/05/18 1259 127/90 - - 117 29 96 % - - 11/05/18 1200 114/88 98.1 F (36.7 C) Oral 96 11 94 % - - 11/05/18 1101 128/86 - - 94 13 94 % - - 11/05/18 1000 109/87 - - 97 12 93 % - - 11/05/18 0900 112/83 - - 100 19 93 % - - 11/05/18 0805 (!) 132/99 98.6 F (37 C) Oral 125 20 96 % - - 11/05/18 0700 122/90 - - 102 18 95 % - - 11/05/18 0600 127/88 97.3 F (36.3 C) - 91 15 93 % - - Intake/Output Summary (Last 24 hours) at 11/06/18 0533 Last data filed at 11/05/18 1755 Gross per 24 hour Intake 1180 ml Output 155 ml Net 1025 ml Physical Exam Constitutional: He is oriented to person, place, and time. He appears well-developed and we ll-nourished. HENT: Head: Normocephalic and atraumatic. Eyes: Pupils are equal, round, and reactive to light. EOM are normal. No scleral icterus. Cardiovascular: Normal rate and regular rhythm. irregular Pulmonary/Chest: Effort normal and breath sounds normal. Abdomina/Gl: Soft. Bowel sounds are normal. Musculoskeletal: He exhibits no edema. Neurological: He is alert and oriented to person, place, and time. Skin: Skin is warm and dry. Nursing note and vitals reviewed. DATA Recent Labs Lab 11/06/18 0408 11/05/18 0416 11/04/18 0410 WBC 6.32 8.02 12.24* RBC 4.18* 4.32 4.57 HGB 13.7 14.4 14.9 HCT 41.9 43.2 45.9 MCV 100.2* 100.0 100.4* MCH 32.7 33.3 32.7 MCHC 32.7 33.3 32.5 RDW 52.9 51.6 53.8* PLT 189 189 245 MPV 8.9 8.7 9.0 DIFFTYPE AUTOMATED AUTOMATED AUTOMATED Recent Labs Lab 11/06/18 0408 11/05/18 0907 11/05/18 0416 11/04/18 0410 NA 138 -- 138 137 K 3.7 4.1 3.6 4.6 CL 101 -- 100 102 CO2 27 -- 26 25 BUN 21 -- 27* 25 CREATININE 0.7 -- 0.9 1.26 PROT -- -- 5.5* -- BILITOT -- -- 2.4* -- ALT -- -- 48 -- AST -- -- 26 -- GLUF 91 -- 97 191* Recent Labs Lab 11/04/18 1408 11/04/18 0743 11/04/18 0112 CKTOTAL 38* 32* 32* TROPONINI 0.113* 0.139* 0.168* CKMBINDEX 6.8 7.2 7.5 Recent Labs Lab 11/06/18 0408 11/05/18 0416 11/04/18 0410 PHOS 3.1 3.4 5.7* Recent Labs Lab 11/06/18 0408 11/05/18 0416 11/04/18 0743 MG 2.1 2.2 2.4 Invalid input(s): ABG No results for input(s): CALCIUM in the last 168 hours. Us Abdomen Limited Result Date: 11/04/2018 1. Heterogeneous thickened gallbladder wall. Negative sonographic Harden sign. No shadowi ng gallstones evident. No dilated intrahepatic or extrahepatic bile ducts. 2. Mild hepatome alison. Minimal ascites fluid seen adjacent to the right lobe of the liver. Signed by: MD Louie, Dr. Evans Sign Date/Time: 11/04/2018 3:04 AM PROBLEM LIST Active Problems: Alcohol dependence (HCC) COPD (chronic obstructive pulmonary disease) Coronary artery disease Essential hypertension, benign Personal history of tobacco use, presenting hazards to health History of methamphetamine abuse Panlobular emphysema (HCC) Thoracic aortic aneurysm without rupture (HCC) ASSESSMENT & PLAN New onset atrial fibrillation with RVR associated with chest pain on presentation and mild troponin elevation. -Remains in atrial fib, rate-controlled. Denies chest pain. -Troponin trended down - likely elevated due to demand ischemia. -Will start on Coumadin or Elliquis after determining patient's medical insurance prioritie s. Will order EKG -Consultation to cardiology.depending on repeat echo. History of CVA. -Continue daily aspirin. History of alcohol dependence and methamphetamine abuse. Last drink/ use unknown. Continue CIWA protocol if there is e/o withdrawal. Cardiomyopathy -Appears to be a new diagnosis. Patient found to have an EF of 20% while at [facility], so Cardizem was stopped. -Cardiogenic shock - developed in the setting of calcium channel jenise use in pt with unr ecognized cardiomyopathy. Resolved. -Weaned off epinephrine and levophed on 11/04. -Patient was intubated for airway protection in the setting of cardiogenic shock. Extubate d on 11/04. Cardiac Diet Coronary artery disease. -Continue aspirin. -Lipid panel was checked at [facility] - all values normal. Essential hypertension Antihypertensives were restarted - amlodipine, carvedilol, losartan. Thoracic aortic aneurysm without rupture. Monitor COPD/ panlobular emphysema. - Not in acute exacerbation. - Albuterol PRN wheezing. - History of tobacco use - documentation from [facility] states he quit years ago. Epigastric pain on presentation to first facility. - Lipase/amylase were normal. - Ultrasound of abdomen negative. Denies any epigastric pain. History of elevated liver enzymes, secondary to alcohol abuse. Currently normal. Acute kidney injury, secondary to cardiogenic shock. - Resolved. -Renally d ose medications, avoid nephrotoxins. -Monitor electrolytes and replace per protocol. Bibasilar opacities suspicious for pneumonia. Continue ceftriaxone - first dose received on 11/03 at [facility] - stop date 11/07. Procalcit onin was slightly elevated, will recheck Remains afebrile. Recheck Chest xray Blood cultures in process--showing no growth. Disposition: Code Status: Full Code Betty Perkins MD 11/06/2018 5:33 AM onversion López saction, Provider Unknown - 11/05/2018 6:38 PM PSTFormatting of this note might be differen t from the original. Nurse Progress Note by Pinky Bui RN at 11/05/181837 Author: Pinky Bui RN Service: (none) Author Type: Registered Nurse Filed: 11/05/181837 Date of Service: 11/05/181837 Status: Signed Merchandising Intern: Pinky Bui RN (Registered Nurse) End of shift audit: Signed and held orders: reviewed and released Medications parameters: completed as ordered Protocols: Completed Restraints: N/A Blood: N/A Audit completed. Pinky Bui RN. 11/05/18 6:38 PM onver nicole Transaction, Provider Unknown - 11/05/2018 1:35 PM PST Nurse Progress Note by Irina Martin RN at 11/05/18 1955 Author: Irina Martin RN Service: (none) Author Type: Registered Nurse Filed: 03/01/19 1335 Date of Service: 11/05/181334 Status: Addendum Merchandising Intern: Irina Martin RN (Registered Nurse) Related Notes: Original Note by Irina Martin RN (Registered Nurse) filed at 11/05/181334 Nurse report called to Naina/JASON. Pt taken to room 7108 via w/c. Dayshift chart audit com pleted. Betty Wiggins MD - 11/05/2018 8:55 AM PST Progress Notes by Betty Perkins MD at 11/05/18 0833 Author: Betty Perkins MD Service: Hospitalist Author Type: Physician Filed: 11/05/18 1442 Date of Service: 11/05/18854 Status: Signed Merchandising Intern: Betty Perkins MD (Physician) [facility] Service: Hospitalist Progress Note Hospital Day: LOS: 2 days SUBJECTIVE Patient Summary: From HPI Per ICU [facility] [employer] POLER 11/03/18 The patient is a 53 y.o. male with significant past medical history of COPD, HTN, CVA, alco hol abuse (historically, was drinking a fifth of hard liquor per day, but [facility] documen tation indicates he quit years ago), and methamphetamine abuse who presents in transfer from [facility] where he was being treated for new onset atrial fibrillation and cardiogenic ирина ck. He originally presented to the hospital in [place] after waking up on the morning of 11/02 with severe epigastric pain radiating up his chest. He c/o nausea, but denied vomiting. In [place], he was found to be in Afib with RVR, and was given a cardizem bolus. Tropon in was minimally elevated at this time, and he was hemodynamically stable. He was transferr ed to [facility] in [place] due to the need for cardiology consult. His epigastric pain had resolved at that time, and patient's rate was controlled but remained in atrial fib. After transfer to [facility], patient remained on the cardizem drip. A drug screen was don e which was positive for cannabinoids and opiates. EKG showed atrial fibrillation with RVR, left anterior fascicular block, anteroseptal infarct (age undetermined), and T-wave abnorma lity. A transthoracic echo was one on the morning of 11/03, and patient was found to have an EF of 20%, which was not previously known. Cardiogenic shock, developed at [facility] on t he afternoon of 11/03/18 after being on Cardizem. Patient had to be briefly paced due to symp tomatic bradycardia with rate down to the 30s. Patient was started on dopamine, norepinephr ine, and later added epinephrine. The cbx operator service at [facility] was consulted, and the patient was transferred to our ICU for further management. 11/05/18 Accepted to medical service Scheduled Medications amLODIPine 5 mg Oral Daily aspirin 325 mg Oral Daily with breakfast carvedilol 12.5 mg Oral BID WC cefTRIAXone 1 g Intravenous Q24H docusate sodium 100 mg Oral BID Or docusate 100 mg Per OG Tube BID enoxaparin 40 mg Subcutaneous Q24H folic acid 1 mg Oral Daily losartan 25 mg Oral Daily pneumococcal 23-valent vaccine 0.5 mL Intramuscular Once Immunization spironolactone 25 mg Oral Daily thiamine 100 mg Oral Daily Continuous Infusions PRN Medications acetaminophen OR acetaminophen, albuterol, chlordiazePOXIDE, magnesium sulfate OR m agnesium sulfate OR magnesium sulfate OR magnesium sulfate, nystatin, ondansetron OR ondansetron, petrolatum, phosphorus OR sodium phosphate IVPB 20 mmol OR sodium phosphate IVPB 45 mmol, potassium chloride OR potassium chloride OR potassium chlori de OBJECTIVE Vital Signs: BP (!) 132/99 (BP Location: Left forearm) Comment: pt trying to use phone | Pulse 125 | Te mp 98.6 F (37 C) (Oral) | Resp 20 | Ht 1.753 m (5' 9") | Wt 91.4 kg (201 lb 8 oz) | SpO2 96% | BMI 29.76 kg/m Patient Vitals for the past 24 hrs: BP Temp Temp src Pulse Resp SpO2 Weight 11/05/18 0805 (!) 132/99 98.6 F (37 C) Oral 125 20 96 % - 11/05/18 0700 122/90 - - 102 18 95 % - 11/05/18 0600 127/88 97.3 F (36.3 C) - 91 15 93 % - 11/05/18 0500 (!) 132/94 97.2 F (36.2 C) - 88 12 94 % - 11/05/18 0430 - - - - - - 91.4 kg (201 lb 8 oz) 11/05/18 0400 114/86 97.2 F (36.2 C) Bladder 87 12 95 % - 11/05/18 0300 118/82 97.3 F (36.3 C) - 91 13 95 % - 11/05/18 0200 (!) 120/91 97.5 F (36.4 C) - 99 13 97 % - 11/05/18 0100 (!) 82/66 97.9 F (36.6 C) - 98 18 94 % - 11/05/18 0000 119/86 97.9 F (36.6 C) Bladder 101 18 93 % - 11/04/18 2300 120/79 98.1 F (36.7 C) - 108 18 96 % - 11/04/18 2200 114/83 98.1 F (36.7 C) - 102 18 93 % - 11/04/18 2100 118/82 98.2 F (36.8 C) - 110 21 92 % - 11/04/18 2030 - 98.1 F (36.7 C) - 123 19 95 % - 11/04/181999 (!) 148/121 97.9 F (36.6 C) Bladder 116 23 95 % - 11/04/18 194 (!) 121/97 97.7 F (36.5 C) - 98 14 93 % - 11/04/18 1930 (!) 112/91 97.9 F (36.6 C) - 101 15 92 % - 11/04/18 1915 127/90 97.7 F (36.5 C) - 96 16 96 % - 11/04/18 1900 141/88 97.7 F (36.5 C) Bladder 102 19 95 % - 11/04/18 1846 149/73 97.7 F (36.5 C) - 110 24 95 % - 11/04/18 1842 (!) 124/97 97.7 F (36.5 C) - 106 17 - - 11/04/18 1830 (!) 149/114 97.7 F (36.5 C) - 102 15 95 % - 11/04/18 1815 (!) 126/105 97.7 F (36.5 C) - 99 18 - - 11/04/18 1800 (!) 121/92 97.7 F (36.5 C) Bladder 110 17 94 % - 11/04/18 1750 (!) 138/100 97.7 F (36.5 C) - 114 22 95 % - 11/04/18 1715 (!) 124/97 97.7 F (36.5 C) - 98 15 93 % - 11/04/18 1700 106/88 97.9 F (36.6 C) Bladder 97 12 93 % - 11/04/18 1646 104/85 98.1 F (36.7 C) - 105 15 91 % - 11/04/18 1615 (!) 122/98 98.1 F (36.7 C) - 104 14 90 % - 11/04/18 1600 (!) 127/94 97.9 F (36.6 C) Bladder 105 29 95 % - 11/04/18 1550 (!) 135/104 97.7 F (36.5 C) - 115 28 95 % - 11/04/18 1530 (!) 113/92 97.5 F (36.4 C) - 113 23 93 % - 11/04/18 1515 (!) 116/99 98.2 F (36.8 C) - 115 23 94 % - 11/04/18 1501 (!) 119/97 98.2 F (36.8 C) Oral 100 23 93 % - 11/04/18 1445 (!) 111/96 98.1 F (36.7 C) - 102 27 94 % - 11/04/18 1430 (!) 111/91 98.1 F (36.7 C) - 96 16 93 % - 11/04/18 1420 (!) 121/92 98.1 F (36.7 C) - 100 26 94 % - 11/04/18 1415 110/77 98.1 F (36.7 C) - 101 25 93 % - 11/04/18 1400 (!) 121/92 98.1 F (36.7 C) Bladder 97 13 92 % - 11/04/18 1345 104/77 98.1 F (36.7 C) - 95 14 93 % - 11/04/18 1330 98/79 98.1 F (36.7 C) - 98 (!) 36 95 % - 11/04/18 1315 96/70 98.1 F (36.7 C) - 94 15 92 % - 11/04/18 1302 90/75 97.9 F (36.6 C) Bladder 110 26 93 % - 11/04/18 1249 103/78 97.9 F (36.6 C) - 105 16 92 % - 11/04/18 1233 94/70 97 F (36.1 C) - 92 16 93 % - 11/04/18 1215 100/79 97 F (36.1 C) - 98 30 93 % - 11/04/18 1200 104/76 97.2 F (36.2 C) Bladder 96 19 92 % - 11/04/18 1146 109/74 96.3 F (35.7 C) - 108 23 95 % - 11/04/18 1135 101/59 97.7 F (36.5 C) - 104 30 93 % - 11/04/18 1115 101/75 97.9 F (36.6 C) - 94 10 94 % - 11/04/18 1100 117/82 97.9 F (36.6 C) Bladder 100 18 96 % - 11/04/18 1050 97/67 97.9 F (36.6 C) - 93 13 94 % - 11/04/18 1038 - - - 104 12 95 % - 11/04/18 1030 108/57 97.9 F (36.6 C) - 98 20 98 % - 11/04/18 1015 100/73 97.9 F (36.6 C) - 82 20 95 % - 11/04/18 1000 95/79 97.9 F (36.6 C) Bladder 80 17 97 % - 11/04/18 0945 91/75 98.1 F (36.7 C) - 78 19 96 % - 11/04/18 0930 102/75 98.2 F (36.8 C) - 81 17 97 % - 11/04/18 0923 120/82 - - - - - - 11/04/18 0918 120/82 98.1 F (36.7 C) - 88 18 98 % - 11/04/18 0900 122/82 98.1 F (36.7 C) Bladder 81 15 96 % - Intake/Output Summary (Last 24 hours) at 11/05/18 0855 Last data filed at 11/05/18 0805 Gross per 24 hour Intake 1616 ml Output 1790 ml Net -174 ml Physical Exam DATA Recent Labs Lab 11/05/18 0416 11/04/18 0410 WBC 8.02 12.24* RBC 4.32 4.57 HGB 14.4 14.9 HCT 43.2 45.9 MCV 100.0 100.4* MCH 33.3 32.7 MCHC 33.3 32.5 RDW 51.6 53.8* PLT 189 245 MPV 8.7 9.0 DIFFTYPE AUTOMATED AUTOMATED Recent Labs Lab 11/05/18 04111/04/18 0410 11/04/18 0112 NA 138 137 138 K 3.6 4.6 4.7 CL 100 102 101 CO2 26 25 26 BUN 27* 25 24 CREATININE 0.9 1.26 1.24 PROT 5.5* -- -- BILITOT 2.4* -- -- ALT 48 -- -- AST 26 -- -- GLUF 97 191* 209* Recent Labs Lab 11/04/18 1408 11/04/18 0743 11/04/18 0112 CKTOTAL 38* 32* 32* TROPONINI 0.113* 0.139* 0.168* CKMBINDEX 6.8 7.2 7.5 Recent Labs Lab 11/05/18 0416 11/04/18 0410 PHOS 3.4 5.7* Recent Labs Lab 11/05/186 11/04/18 0743 11/04/18 0410 MG 2.2 2.4 2.1 Invalid input(s): ABG No results for input(s): CALCIUM in the last 168 hours. Us Abdomen Limited Result Date: 11/04/2018 1. Heterogeneous thickened gallbladder wall. Negative sonographic Harden sign. No shadowi ng gallstones evident. No dilated intrahepatic or extrahepatic bile ducts. 2. Mild hepatome alison. Minimal ascites fluid seen adjacent to the right lobe of the liver. Signed by: MD Louie, Dr. Evans Sign Date/Time: 11/04/2018 3:04 AM PROBLEM LIST Active Problems: Alcohol dependence (HCC) COPD (chronic obstructive pulmonary disease) Coronary artery disease Essential hypertension, benign Personal history of tobacco use, presenting hazards to health History of methamphetamine abuse Panlobular emphysema (HCC) Thoracic aortic aneurysm without rupture (HCC) ASSESSMENT & PLAN Per ICU NEURO: History of CVA. Continue daily aspirin. History of alcohol dependence and methamphetamine abuse. Last drink/ use unknown. Will implement CIWA protocol if there is e/o withdrawal. CAM-ICU screening every shift. CV: New onset atrial fibrillation with RVR associated with chest pain on presentation and mi ld troponin elevation. Remains in atrial fib, rate-controlled. Denies chest pain. Troponin trending down - likely elevated due to demand ischemia. Determine plan for long-term anticoagulation. Check liver function first. Consultation to cardiology. Will need repeat echo. Cardiomyopathy - appears to be a new diagnosis. Patient found to have an EF of 20% whil e at [facility], so Cardizem was stopped. Cardiogenic shock - developed in the setting of calcium channel jenise use in pt with u nrecognized cardiomyopathy. Resolving. Weaned off epinephrine and levophed on 11/04. Coronary artery disease. Continue aspirin. Lipid panel was checked at [facility] - all values normal. Essential hypertension. Antihypertensives were restarted - amlodipine, carvedilol, losa rtan. Thoracic aortic aneurysm without rupture. PULM: Patient was intubated for airway protection in the setting of cardiogenic shock. Extuba rao on 11/04. COPD/ panlobular emphysema. Albuterol PRN wheezing. History of tobacco use - documentation from [facility] states he quit years ago. GI/NUTRITION: Epigastric pain on presentation to first facility. Lipase/amylase were normal. Ultraso und of abdomen negative. Denies any epigastric pain. Cardiac diet. History of elevated liver enzymes, secondary to alcohol abuse. Check CMP in the am - wi ll need to consider best choice for anticoagulation in setting of liver impairment. RENAL/LYTES: Acute kidney injury, secondary to cardiogenic shock. Resolved. Renally dose medications, avoid nephrotoxins. Monitor electrolytes and replace per protocol. Monitor Is/Os. BMP daily. ID: Bibasilar opacities suspicious for pneumonia. Continue ceftriaxone - first dose receive d on 11/03 at [facility] - stop date 11/07. Procalcitonin slightly elevated. Remains afebrile. Blood cultures in process. HEME: No anemia or thrombocytopenia. CBC daily. ENDO: TSH normal at [facility]. Implement Endotool if indicated per ICU protocol. MUSC/SKIN: PT/OT/mobilize patient as able. Skin care and pressure ulcer prevention per nursing standards. PROPHYLAXIS: Stress ulcer prophylaxis: no longer indicated DVT prophylaxis: enoxaparin, SCDs VAP bundle: no longer indicated Disposition: ICU plan of care as above. Disposition: Code Status: Full Code Betty Perkins MD 11/05/2018 8:55 AM llis, Ellie jeong NP - 11/05/2018 1:06 AM PSTFormatting of this note might be different from the origi nal. Progress Notes by WILLEM Moseley at 11/05/18105 Author: WILLEM Moseley Service: Information Management Specialist Author Type: Advanced Registered Nurse Practitioner Filed: 11/05/18 0643 Date of Service: 11/05/18105 Status: Signed Merchandising Intern: WILLEM Moseley (Advanced Registered Nurse Practitioner) [facility] Information Management Specialist Service Progress Note Taurus Domínguez 53 y.o. Hospital Day: LOS: 2 days Post-Op Day: * No surgery found * Consulting Physicians Treatment Team: Admitting Provider: Dony Verma MD SUBJECTIVE Patient Summary: From [facility] on 11/04/18: The patient is a 53 y.o. male with significant past medical history of COPD, HTN, CVA, alco hol abuse (historically, was drinking a fifth of hard liquor per day, but [facility] documen tation indicates he quit years ago), and methamphetamine abuse who presents in transfer from [facility] where he was being treated for new onset atrial fibrillation and cardiogenic ирина ck. He originally presented to the hospital in [place] after waking up on the morning of 11/02 with severe epigastric pain radiating up his chest. He c/o nausea, but denied vomiting. In [place], he was found to be in Afib with RVR, and was given a cardizem bolus. Tropon in was minimally elevated at this time, and he was hemodynamically stable. He was transferr ed to [facility] in [place] due to the need for cardiology consult. His epigastric pain had resolved at that time, and patient's rate was controlled but remained in atrial fib. After transfer to [facility], patient remained on the cardizem drip. A drug screen was don e which was positive for cannabinoids and opiates. EKG showed atrial fibrillation with RVR, left anterior fascicular block, anteroseptal infarct (age undetermined), and T-wave abnorma lity. A transthoracic echo was one on the morning of 11/03, and patient was found to have an EF of 20%, which was not previously known. Cardiogenic shock, developed at [facility] on t afternoon of 11/03/18 after being on Cardizem. Patient had to be briefly paced due to symp tomatic bradycardia with rate down to the 30s. Patient was started on dopamine, norepinephr ine, and later added epinephrine. The cbx operator service at [facility] was consulted, and the patient was transferred to our ICU for further management. ICU Timeline: 11/04: Pt admitted in transfer from [facility], in cardiogenic shock. Pressors weaned th roughout the day. Patient successfully extubated. Events Overnight: Remained in atrial fib, rate mostly <100. Remained off pressors. SCHEDULED MEDICATIONS amLODIPine 5 mg Oral Daily aspirin 325 mg Oral Daily with breakfast carvedilol 6.25 mg Oral BID WC cefTRIAXone 1 g Intravenous Q24H docusate sodium 100 mg Oral BID Or docusate 100 mg Per OG Tube BID enoxaparin 40 mg Subcutaneous Q24H folic acid 1 mg Oral Daily losartan 25 mg Oral Daily pneumococcal 23-valent vaccine 0.5 mL Intramuscular Once Immunization thiamine 100 mg Oral Daily OBJECTIVE VITAL SIGNS Temp: [95.9 F (35.5 C)-98.2 F (36.8 C)] 97.3 F (36.3 C) Heart Rate: [74-123] 91 Resp: [10-36] 15 BP: (82-149)/(57-121) 127/88 FiO2 : [30 %] 30 % Intake/Output Summary (Last 24 hours) at 11/05/18 06 Last data filed at 11/05/18 0617 Gross per 24 hour Intake 1406 ml Output 1810 ml Net -404 ml EXAM GEN: awake, oriented, appropriately interacts NEURO: PERRL, no facial asymmetry, moves all extremities to commands HEENT: sclerae clear, nonicteric, oral mmm, pink NECK: supple, trachea midline CV: tachycardic, irregular rhythm, S1/S2, no murmur, rub or gallop, peripheral pulses palpa ble, cap refill brisk LUNGS: diminished but clear b/l, no wheezing, rales or rhonchi, symmetric chest expansion, even/unlabored respirations on room air ABD: soft, nondistended, nontender to palpation, no masses, bowel tones active EXTR: no edema, no clubbing or cyanosis; the pattern of skin blanching along the course of the veins of the RUE has resolved SKIN: warm, dry, no rash or mottling; no e/o skin breakdown over the occiput, scapulae, elb ows, sacrum or heels LINES/TUBES: RUE PICC line (11/03 at [facility]), PIVs DATA Recent Labs Lab 11/05/18 0416 11/04/18 0410 WBC 8.02 12.24* RBC 4.32 4.57 HGB 14.4 14.9 HCT 43.2 45.9 MCV 100.0 100.4* MCH 33.3 32.7 MCHC 33.3 32.5 RDW 51.6 53.8* PLT 189 245 MPV 8.7 9.0 NEUTROABS 5.79 10.14* LYMPHSABS 1.17 0.86* MONOSABS 0.98* 1.19* BASOSABS 0.03 0.04 EOSABS 0.05 0.01 Recent Labs Lab 11/05/18 0416 11/04/18 0743 11/04/18 0410 11/04/18 0112 NA 138 -- 137 138 K 3.6 -- 4.6 4.7 CL 100 -- 102 101 CO2 26 -- 25 26 ANIONGAP 16 -- 15 16 GLUF 97 -- 191* 209* BUN 27* -- 25 24 CREATININE 0.9 -- 1.26 1.24 BCR 30 -- 20 19 CA 8.7 -- 8.6 8.5 ALB 2.5* -- -- -- GLOB 3.0 -- -- -- AG 0.8* -- -- -- PROT 5.5* -- -- -- BILITOT 2.4* -- -- -- ALT 48 -- -- -- AST 26 -- -- -- EGFR >60 -- 59* >60 PHOS 3.4 -- 5.7* -- MG 2.2 2.4 2.1 -- No results for input(s): INR in the last 168 hours. IMAGING Us Abdomen Limited Result Date: 11/04/2018 1. Heterogeneous thickened gallbladder wall. Negative sonographic Harden sign. No shadowi ng gallstones evident. No dilated intrahepatic or extrahepatic bile ducts. 2. Mild hepatome alison. Minimal ascites fluid seen adjacent to the right lobe of the liver. Signed by: MD Louie, Dr. Evans Sign Date/Time: 11/04/2018 3:04 AM XR CHEST AP PORTABLE Result Date: 11/03/2018 1. Endotracheal tube projects 6.6 cm above the sanjay. Right upper extremity PICC line terminates at the superior atrial caval junction. Enteric tube extends below the level of the diaphragms, likely terminating in the stomach. 2. There is worsening central pulmonary vascular congestion and right greater than left basilar opacities which may represent layering pleural effusions and underlying atelectasis/consolidation and/or edema. 3. Cardiomediastinal contours are stable. 4. No pneumothorax. Signed by: MD Caity, Jami Sign Date/Time: 11/04/2018 1:47 AM PROBLEM LIST Principal Problem (Resolved): Cardiogenic shock (HCC) Active Problems: Alcohol dependence (HCC) COPD (chronic obstructive pulmonary disease) Coronary artery disease Essential hypertension, benign Personal history of tobacco use, presenting hazards to health History of methamphetamine abuse Panlobular emphysema (HCC) Thoracic aortic aneurysm without rupture (HCC) Resolved Problems: SWEETIE (acute kidney injury) (HCC) ASSESSMENT & PLAN NEURO: History of CVA. Continue daily aspirin. History of alcohol dependence and methamphetamine abuse. Last drink/ use unknown. Will implement CIWA protocol if there is e/o withdrawal. CAM-ICU screening every shift. CV: New onset atrial fibrillation with RVR associated with chest pain on presentation and mi ld troponin elevation. Remains in atrial fib, rate-controlled. Denies chest pain. Troponin trending down - likely elevated due to demand ischemia. Determine plan for long-term anticoagulation. Check liver function first. Consultation to cardiology. Will need repeat echo. Cardiomyopathy - appears to be a new diagnosis. Patient found to have an EF of 20% whil e at [facility], so Cardizem was stopped. Cardiogenic shock - developed in the setting of calcium channel jenise use in pt with u nrecognized cardiomyopathy. Resolving. Weaned off epinephrine and levophed on 11/04. Coronary artery disease. Continue aspirin. Lipid panel was checked at [facility] - all values normal. Essential hypertension. Antihypertensives were restarted - amlodipine, carvedilol, losa rtan. Thoracic aortic aneurysm without rupture. PULM: Patient was intubated for airway protection in the setting of cardiogenic shock. Extuba rao on 11/04. COPD/ panlobular emphysema. Albuterol PRN wheezing. History of tobacco use - documentation from [facility] states he quit years ago. GI/NUTRITION: Epigastric pain on presentation to first facility. Lipase/amylase were normal. Ultraso und of abdomen negative. Denies any epigastric pain. Cardiac diet. History of elevated liver enzymes, secondary to alcohol abuse. Check CMP in the am - wi ll need to consider best choice for anticoagulation in setting of liver impairment. RENAL/LYTES: Acute kidney injury, secondary to cardiogenic shock. Resolved. Renally dose medications, avoid nephrotoxins. Monitor electrolytes and replace per protocol. Monitor Is/Os. BMP daily. ID: Bibasilar opacities suspicious for pneumonia. Continue ceftriaxone - first dose receive d on 11/03 at [facility] - stop date 11/07. Procalcitonin slightly elevated. Remains afebrile. Blood cultures in process. HEME: No anemia or thrombocytopenia. CBC daily. ENDO: TSH normal at [facility]. Implement Endotool if indicated per ICU protocol. MUSC/SKIN: PT/OT/mobilize patient as able. Skin care and pressure ulcer prevention per nursing standards. PROPHYLAXIS: Stress ulcer prophylaxis: no longer indicated DVT prophylaxis: enoxaparin, SCDs VAP bundle: no longer indicated Disposition: ICU plan of care as above. Code Status: Full Code *Please bill 45 minutes of critical care time spent evaluating the patient, reviewing the d deborah and formulating a plan exclusive of all other procedures. WILLEM Lawrence 11/05/2018 onversion López saction, Provider Unknown - 11/04/2018 7:38 PM PSTFormatting of this note might be differen t from the original. Nurse Progress Note by Irina Martin RN at 11/04/181937 Author: Irina Martin RN Service: (none) Author Type: Registered Nurse Filed: 11/04/181937 Date of Service: 11/04/181937 Status: Signed Merchandising Intern: Irina Martin RN (Registered Nurse) Dayshift chart audits completed. onver nicole Transaction, Provider Unknown - 11/04/2018 4:12 PM PST Case Management by Camryn Glover RN at 11/04/18 161 Author: Camryn Glover RN Service: (none) Author Type: Registered Nurse Filed: 11/04/18 1621 Date of Service: 11/04/18 161 Status: Signed Merchandising Intern: Camryn Glover RN (Registered Nurse) 11/04/18 1500 Discharge Planning Evaluation Admitting Diagnosis Cardiogenic shock Readmission No Living Arrangements Other (Comment) (roommate) Support Systems Friends/neighbors Type of Residence Private residence House type House-1 story (with basement-pt lives in basement) Steps to enter 3 Bathrooms on 1st Floor 1-Full Independent with ADL's Yes Independent with Mobility Yes Home Care Services No Caregiver after Discharge No (Pt stated "he has everything he needs") Mental Status Oriented Prior functional status IADL's, does not drive/no drivers license Power of Logistics Planning Engineer No;Other (comment) (Given POA forms an traveling notary info) Anticipated Discharge Plan Post Acute Care Needs None at this time Plan communicated to patient/family Yes Resources 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 Pt is a 53 y.o., male admitted with cardiogenic shock. Pt awake, A/O, appropriate. Pt stated he lives in [place], [place] in a house with a roommate. He lives in the basement w ith his dog. There are approx 12 [address] down. He does not have a bathroom or kitchen in the basement but she shares the upper part of the house with his roommate. Pt stated he is IADL's and does not use any DME. Stated he does not drive. He walks to [employer] and his friend Taurus Salinas (ph# [phone]) drives him places. Stated his friend Taurus is not his roommate. Taurus lives in [place], [place]. Pt stated he is working with Faina lópez to become his POA for medical decision making but lost the form. Provided pt with Provide nce Advanced Directive forms and contact info for traveling notaries. 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 Discussed ETOH use. Pt stated he "has cut down" and no longer drinks very much hard liquor . He "hates beer" so does not drink it very much. Pt stated he has not used meth in many y ears. He does not go to or participate in any other OP substance abuse programs. Pt declined offer to speak to [facility] about substance/ETOH abuse. Declined offer of resources. Pt stated he plans to return home upon discharge and has no concerns at this time. Patient's PCP is: MYKEL SAENZ DO Patient's insurance: Medicaid-[facility] [employer] [place] [place] Coverage concerns: no concerns Medication coverage/concerns: has coverage/no concerns Community resources utilized / needed: none utilized/pt denies need of any resources at thi s time Assistance in transportation: stated his friend Taurus will take him home Identification of any specific education / training: none at this time Barriers to Discharge / Alternative housing needed: no barriers to discharge/alternative ho using not needed Anticipated DCP: return home alone CAMRYN JANNIE 11/04/2018 4:12 PM onver nicole Transaction, Provider Unknown - 11/04/2018 11:53 AM PST Progress Notes by Abigail Menjivar RRT at 11/04/18 1153 Author: Abigail Menjivar RRT Service: (none) Author Type: Registered Respiratory Therap ist Filed: 11/04/18 1155 Date of Service: 11/04/18 115 Status: Signed Merchandising Intern: Abigail Menjivar RRT (Registered Respiratory Therapist) Pt alert and following commands prior to extubation. Passed SBT 06/07 .30, VC 1120 as well a s leak test. Extubated to RA at 1128, tolerated well. Pt was able to say his name and no eber dence of stridor post extubation. onver nicole Transaction, Provider Unknown - 11/04/2018 1:56 AM PST Pharmacy Note by Xiomy Schwab RPH at 11/04/18 015 Author: Xiomy Schwab RPH Service: Pharmacy Author Type: Pharmacist Filed: 11/04/18155 Date of Service: 11/04/18155 Status: Signed Merchandising Intern: Xiomy Schwab RPH (Pharmacist) Clinical Pharmacy Note: Renal Monitoring Height: 175.3 cm Weight: 91 kg Serum Creatinine: 1.26 mg/dL (from [facility] 11/03/18) Estimated creatinine clearance - Cockcroft-Gault CrCl: Greater than 60 mL/min Per CareEverywhere labs from earlier in the day at [facility] reported creatinine 0.63 mg/d L Currently there are no medications needing to be adjusted. Pharmacy will continue to monito r for changes in medication orders and in renal function and adjust accordingly. XIOMY SCHWAB Pharmacist 11/04/2018 1:50 AM docume nted in this encounter Plan of Treatment +--------+---------+ + + + | Date | Type | Specialty | Care Team | Description | +--------+---------+ + + + | 09/30/ | Office | Cardiology | Samm Malik, | | | 2019 | Visit | | MD [address] | | | | | | [facility] [place] | | | | | | [address] | | | | | | | | +--------+---------+ + + + | 01/28/ | Office | Cardiology | JuanVannesa | | | 2019 | Visit | | SHIR[address] | | | | | | [address] | | | | | | [place] [address] | | | | | | [phone] | | | | | | | | +--------+---------+ + + + documented as of this encounter Procedures + +--------+ + + + | Procedure Name | Priori | Date/Time | Associated Diagnosis | Comments | | | ty | | | | + +--------+ + + + | ECHO COMPLETE | Routin | 11/07/2018 | | Results for this | | | e | 9:35 AM | | procedure are in the | | | | PST | | results section. | + +--------+ + + + | EXTERNAL LAB: CBC | Routin | 11/07/2018 | | Results for this | | | e | 3:13 AM | | procedure are in the | | | | PST | | results section. | + +--------+ + + + | PROCALCITONIN, SERUM | Routin | 11/07/2018 | | Results for this | | | e | 3:13 AM | | procedure are in the | | | | PST | | results section. | + +--------+ + + + | PHOSPHORUS | Routin | 11/07/2018 | | Results for this | | | e | 3:13 AM | | procedure are in the | | | | PST | | results section. | + +--------+ + + + | MAGNESIUM | Routin | 11/07/2018 | | Results for this | | | e | 3:13 AM | | procedure are in the | | | | PST | | results section. | + +--------+ + + + | BASIC METABOLIC | Routin | 11/07/2018 | | Results for this | | PANEL | e | 3:13 AM | | procedure are in the | | | | PST | | results section. | + +--------+ + + + | ECG 12 LEAD | Routin | 11/06/2018 | | Results for this | | | e | 2:06 PM | | procedure are in the | | | | PST | | results section. | + +--------+ + + + | XR CHEST 1 VIEW | Routin | 11/06/2018 | | Results for this | | | e | 2:00 PM | | procedure are in the | | | | PST | | results section. | + +--------+ + + + | EXTERNAL LAB: CBC | Routin | 11/06/2018 | | Results for this | | | e | 4:08 AM | | procedure are in the | | | | PST | | results section. | + +--------+ + + + | PHOSPHORUS | Routin | 11/06/2018 | | Results for this | | | e | 4:08 AM | | procedure are in the | | | | PST | | results section. | + +--------+ + + + | MAGNESIUM | Routin | 11/06/2018 | | Results for this | | | e | 4:08 AM | | procedure are in the | | | | PST | | results section. | + +--------+ + + + | BASIC METABOLIC | Routin | 11/06/2018 | | Results for this | | PANEL | e | 4:08 AM | | procedure are in the | | | | PST | | results section. | + +--------+ + + + | PROTIME INR | Routin | 11/05/2018 | | Results for this | | | e | 9:07 AM | | procedure are in the | | | | PST | | results section. | + +--------+ + + + | POTASSIUM | Routin | 11/05/2018 | | Results for this | | | e | 9:07 AM | | procedure are in the | | | | PST | | results section. | + +--------+ + + + | EXTERNAL LAB: CBC | Routin | 11/05/2018 | | Results for this | | | e | 4:16 AM | | procedure are in the | | | | PST | | results section. | + +--------+ + + + | PHOSPHORUS | Routin | 11/05/2018 | | Results for this | | | e | 4:16 AM | | procedure are in the | | | | PST | | results section. | + +--------+ + + + | MAGNESIUM | Routin | 11/05/2018 | | Results for this | | | e | 4:16 AM | | procedure are in the | | | | PST | | results section. | + +--------+ + + + | COMPREHENSIVE | Routin | 11/05/2018 | | Results for this | | METABOLIC PANEL | e | 4:16 AM | | procedure are in the | | | | PST | | results section. | + +--------+ + + + | TROPONIN I | Routin | 11/04/2018 | | Results for this | | | e | 2:08 PM | | procedure are in the | | | | PST | | results section. | + +--------+ + + + | CK-MB | Routin | 11/04/2018 | | Results for this | | | e | 2:08 PM | | procedure are in the | | | | PST | | results section. | + +--------+ + + + | CK TOTAL | Routin | 11/04/2018 | | Results for this | | | e | 2:08 PM | | procedure are in the | | | | PST | | results section. | + +--------+ + + + | TROPONIN I | Routin | 11/04/2018 | | Results for this | | | e | 7:43 AM | | procedure are in the | | | | PST | | results section. | + +--------+ + + + | CK-MB | Routin | 11/04/2018 | | Results for this | | | e | 7:43 AM | | procedure are in the | | | | PST | | results section. | + +--------+ + + + | MAGNESIUM | Routin | 11/04/2018 | | Results for this | | | e | 7:43 AM | | procedure are in the | | | | PST | | results section. | + +--------+ + + + | CK TOTAL | Routin | 11/04/2018 | | Results for this | | | e | 7:43 AM | | procedure are in the | | | | PST | | results section. | + +--------+ + + + | EXTERNAL LAB: CBC | Routin | 11/04/2018 | | Results for this | | | e | 4:10 AM | | procedure are in the | | | | PST | | results section. | + +--------+ + + + | PROCALCITONIN, SERUM | Routin | 11/04/2018 | | Results for this | | | e | 4:10 AM | | procedure are in the | | | | PST | | results section. | + +--------+ + + + | PHOSPHORUS | Routin | 11/04/2018 | | Results for this | | | e | 4:10 AM | | procedure are in the | | | | PST | | results section. | + +--------+ + + + | MAGNESIUM | Routin | 11/04/2018 | | Results for this | | | e | 4:10 AM | | procedure are in the | | | | PST | | results section. | + +--------+ + + + | BASIC METABOLIC | Routin | 11/04/2018 | | Results for this | | PANEL | e | 4:10 AM | | procedure are in the | | | | PST | | results section. | + +--------+ + + + | US ABDOMEN LIMITED | Routin | 11/04/2018 | | Results for this | | | e | 2:51 AM | | procedure are in the | | | | PST | | results section. | + +--------+ + + + | XR CHEST 1 VIEW | Routin | 11/04/2018 | | Results for this | | | e | 1:36 AM | | procedure are in the | | | | PST | | results section. | + +--------+ + + + | CULTURE, BLOOD, 2ND | STAT | 11/04/2018 | | Results for this | | SPECIMEN (NON-ORD) | | 1:13 AM | | procedure are in the | | | | PST | | results section. | + +--------+ + + + | TROPONIN I | Routin | 11/04/2018 | | Results for this | | | e | 1:12 AM | | procedure are in the | | | | PST | | results section. | + +--------+ + + + | CK-MB | Routin | 11/04/2018 | | Results for this | | | e | 1:12 AM | | procedure are in the | | | | PST | | results section. | + +--------+ + + + | CULTURE, BLOOD | STAT | 11/04/2018 | | Results for this | | | | 1:12 AM | | procedure are in the | | | | PST | | results section. | + +--------+ + + + | LIPASE | Routin | 11/04/2018 | | Results for this | | | e | 1:12 AM | | procedure are in the | | | | PST | | results section. | + +--------+ + + + | LACTIC ACID | Routin | 11/04/2018 | | Results for this | | | e | 1:12 AM | | procedure are in the | | | | PST | | results section. | + +--------+ + + + | CK TOTAL | Routin | 11/04/2018 | | Results for this | | | e | 1:12 AM | | procedure are in the | | | | PST | | results section. | + +--------+ + + + | AMYLASE | Routin | 11/04/2018 | | Results for this | | | e | 1:12 AM | | procedure are in the | | | | PST | | results section. | + +--------+ + + + | BASIC METABOLIC | Routin | 11/04/2018 | | Results for this | | PANEL | e | 1:12 AM | | procedure are in the | | | | PST | | results section. | + +--------+ + + + | MRSA NAAT | Routin | 11/04/2018 | | Results for this | | | e | 12:13 AM | | procedure are in the | | | | PST | | results section. | + +--------+ + + + | POC GLUCOSE | Routin | 11/03/2018 | | Results for this | | | e | 11:11 PM | | procedure are in the | | | | PST | | results section. | + +--------+ + + + documented in this encounter Results ECHO Complete (11/07/2018 9:35 AM PST) + + | Specimen | + + | | + + + + + | Impressions | Performed At | + + + | 1. The left ventricle is normal in size, mild concentric hypertrophy | | | and severely impaired systolic function EF 20-25%. 2. The right | | | ventricle is severely enlarged with severely impaired systolic | | | function. 3. Moderate tricuspid regurgitation with mild pulmonary | | | hypertension RVSP 41 mmHg. 4. There is no pericardial effusion. | | + + + + + + | Narrative | Performed At | + + + | Patient Name: Taurus Domínguez Date of : 1965 | | | Performing Physician: Gabe Conrad | | | | | | INDICATIONS cariomyopathy CONCLUSIONS | | | 1. The left ventricle is normal in size, mild concentric hypertrophy | | | and severely impaired systolic function EF 20-25%. 2. The right | | | ventricle is severely enlarged with severely impaired systolic | | | function. 3. Moderate tricuspid regurgitation with mild pulmonary | | | hypertension RVSP 41 mmHg. 4. There is no pericardial effusion. | | | FINDINGS -------- ECG rhythm: Atrial fibrillation. Study: A | | | 2-dimensional transthoracic echocardiogram with m-mode, spectral and | | | color flow Doppler was perfomed. Study: This was a technically | | | adequate study. Left Ventricle: Overall left ventricular systolic | | | function is severely impaired with, an EF between 20 - 25 %. Left | | | Ventricle: The left ventricle cavity size is normal. Left Ventricle: | | | There is mild concentric left ventricular hypertrophy. Left | | | Ventricle: There is severe global hypokinesis of LV contractility. | | | Right Ventricle: The right ventricle is severely enlarged measuring | | | >4.1 cm. Right Ventricle: The right ventricular systolic function is | | | severely impaired. Left Atrium: The left atrium is markedly dilated. | | | Right Atrium: The right atrium is markedly enlarged. Aortic Valve: | | | The aortic valve is trileaflet. Aortic Valve: There is mild aortic | | | regurgitation. Aortic Valve: There is no evidence of aortic stenosis. | | | Mitral Valve: The mitral valve is normal. Mitral Valve: Moderate | | | mitral regurgitation is present. Tricuspid Valve: The tricuspid valve | | | appears structurally normal. Tricuspid Valve: Moderate tricuspid | | | regurgitation present. Tricuspid Valve: There is mild pulmonary | | | hypertension. Tricuspid Valve: The right ventricular systolic | | | pressure (pulmonary artery systolic pressure), as measured by Doppler, | | | is 41.57mmHg. Pulmonic Valve: The pulmonic valve is normal. | | | Pericardium: There is no pericardial effusion. Pericardium: No | | | pleural effusion seen. Pericardium: small ascites noted. IVC/Hepatic | | | Veins: The IVC is dilated (>2.5cm) and does not collapse with | | | sniff, consistent with central venous pressures of >20mmHg. 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 General comments: Nurse | | | was notified by phone. MEASUREMENTS RA Area: | | | 36.08 cm2 Ao asc: 4.20 cm Ao sinus: 5.28 cm IVC: 2.92 cm | | | EDV(Teich): 156.42 ml IVSd: 1.13 cm LVIDd: 5.64 cm LVPWd: | | | 1.19 cm LVOT Diam: 2.35 cm %FS: 10.56 % EF(Teich): | | | 22.74 % ESV(Teich): 120.85 ml IVSs: 1.27 cm LVIDs: 5.04 cm | | | LVPWs: 1.29 cm SV(Teich): 35.57 ml RA Major: 7.26 cm | | | RVIDd: 5.03 cm LVEF MOD A2C: 19.29 % SV MOD A2C: 30.52 ml | | | LVEF MOD A4C: 27.94 % SV MOD A4C: 42.39 ml EF Biplane: | | | 24.44 % LVEDV MOD BP: 156.94 ml LVESV MOD BP: 118.58 ml LVEDV | | | MOD A2C: 158.17 ml LVLd A2C: 9.07 cm LVEDV MOD A4C: 151.68 | | | ml LVLd A4C: 9.34 cm LVESV MOD A2C: 127.65 ml LVLs A2C: | | | 8.63 cm LVESV MOD A4C: 109.29 ml LVLs A4C: 8.85 cm | | | LAESV(A-L): 122.90 ml LAESV Index (A-L): 59.37 ml/m2 LAAs A2C: | | | 32.31 cm2 LAESV A-L A2C: 132.42 ml LALs A2C: 6.69 cm LAAs | | | A4C: 29.99 cm2 LAESV A-L A4C: 96.05 ml LALs A4C: 7.94 cm | | | AR Dec [place]: 2.59 m/s2 AR Dec Time: 1546.99 ms AR maxPG: | | | 64.22 mmHg AR PHT: 448.62 ms AR Vmax: 4.00 m/s HR: 109.18 | | | BPM AV maxP.06 mmHg AV meanP.76 mmHg AV Vmax: 1.00 | | | m/s AV Vmean: 0.81 m/s AV VTI: 21.36 cm CHAN Vmax: 2.99 | | | cm2 CHAN (VTI): 2.00 cm2 AVAI Vmax: 0.00 cm2/m2 AVAI (VTI): | | | 0.00 cm2/m2 LVOT maxP.93 mmHg LVOT meanP.13 mmHg | | | LVSI Dopp: 20.64 ml/m2 LVSV Dopp: 42.74 ml LVOT Vmax: 0.69 | | | m/s LVOT Vmean: 0.50 m/s LVOT VTI: 9.82 cm Septal e': 0.05 | | | m/s Lateral e': 0.05 m/s PAEDP: 27.48 mmHg PRend PG: | | | 12.48 mmHg PRend Vmax: 1.76 m/s HR: 91.39 BPM PV maxPG: | | | 0.61 mmHg PV meanP.33 mmHg PV Vmax: 0.39 m/s PV Vmean: | | | 0.27 m/s PV VTI: 6.61 cm RAP: 15 mmHg RVSP: 41.56 mmHg | | | TR maxP.56 mmHg TR Vmax: 2.57 m/s Mate Relief: ESTUARDO | | | Authenticated by: Gabe Conrad Report Date/Time: 11-07-2018 | | | 13:10:35 | | + + + + + | Procedure Note | + + | David Solorio Conversion - 04/16/2019 12:11 AM PDT Patient Name: Harper Domínguez | | : 1965 Performing Physician: Gabe | | Anamaria INDICATIONS------ | | -----cariomyopathy CONCLUSIONS 1. The left ventricle is normal in size, mild | | concentric hypertrophy and severely impaired systolic function EF 20-25%.2. The right | | ventricle is severely enlarged with severely impaired systolic function.3. Moderate | | tricuspid regurgitation with mild pulmonary hypertension RVSP 41 mmHg.4. There is no | | pericardial effusion. FINDINGS--------ECG rhythm: Atrial fibrillation.Study: A | | 2-dimensional transthoracic echocardiogram with m-mode, spectral and color flow Doppler | | was perfomed.Study: This was a technically adequate study.Left Ventricle: Overall left | | ventricular systolic function is severely impaired with, an EF between 20 - 25 %.Left | | Ventricle: The left ventricle cavity size is normal.Left Ventricle: There is mild | | concentric left ventricular hypertrophy.Left Ventricle: There is severe global | | hypokinesis of LV contractility.Right Ventricle: The right ventricle is severely | | enlarged measuring >4.1 cm.Right Ventricle: The right ventricular systolic function is | | severely impaired.Left Atrium: The left atrium is markedly dilated.Right Atrium: The | | right atrium is markedly enlarged.Aortic Valve: The aortic valve is trileaflet.Aortic | | Valve: There is mild aortic regurgitation.Aortic Valve: There is no evidence of aortic | | stenosis.Mitral Valve: The mitral valve is normal.Mitral Valve: Moderate mitral | | regurgitation is present.Tricuspid Valve: The tricuspid valve appears structurally | | normal.Tricuspid Valve: Moderate tricuspid regurgitation present.Tricuspid Valve: There | | is mild pulmonary hypertension.Tricuspid Valve: The right ventricular systolic pressure | | (pulmonary artery systolic pressure), as measured by Doppler, is 41.57mmHg.Pulmonic | | Valve: The pulmonic valve is normal.Pericardium: There is no pericardial | | effusion.Pericardium: No pleural effusion seen.Pericardium: small ascites | | noted.IVC/Hepatic Veins: The IVC is dilated (>2.5cm) and does not collapse with sniff, | | consistent with central venous pressures of >20mmHg.Aorta: The aortic root is dilated | | measuring 5.0 cm.General comments: Nurse was notified by phone. | | MEASUREMENTS RA Area: 36.08 cm2Ao asc: 4.20 cmAo sinus: 5.28 cmIVC: | | 2.92 cmEDV(Teich): 156.42 mlIVSd: 1.13 cmLVIDd: 5.64 cmLVPWd: 1.19 cmLVOT Diam: | | 2.35 cm%FS: 10.56 %EF(Teich): 22.74 %ESV(Teich): 120.85 mlIVSs: 1.27 cmLVIDs: | | 5.04 cmLVPWs: 1.29 cmSV(Teich): 35.57 mlRA Major: 7.26 cmRVIDd: 5.03 cmLVEF | | MOD A2C: 19.29 %SV MOD A2C: 30.52 mlLVEF MOD A4C: 27.94 %SV MOD A4C: 42.39 mlEF | | Biplane: 24.44 %LVEDV MOD BP: 156.94 mlLVESV MOD BP: 118.58 mlLVEDV MOD A2C: | | 158.17 mlLVLd A2C: 9.07 cmLVEDV MOD A4C: 151.68 mlLVLd A4C: 9.34 cmLVESV MOD A2C: | | 127.65 mlLVLs A2C: 8.63 cmLVESV MOD A4C: 109.29 mlLVLs A4C: 8.85 cmLAESV(A-L): | | 122.90 mlLAESV Index (A-L): 59.37 ml/m2LAAs A2C: 32.31 [id number] A-L A2C: 132.42 | | mlLALs A2C: 6.69 cmLAAs A4C: 29.99 [id number] A-L A4C: 96.05 mlLALs A4C: 7.94 cmAR | | Dec [place]: 2.59 m/s2AR Dec Time: 1546.99 msAR maxP.22 mmHgAR PHT: 448.62 | | msAR Vmax: 4.00 m/sHR: 109.18 BPMAV maxP.06 mmHgAV meanP.76 mmHgAV Vmax: | | 1.00 m/Neymar Vmean: 0.81 m/Neymar VTI: 21.36 cmAVA Vmax: 2.99 cm2AVA (VTI): 2.00 | | [id number] Vmax: 0.00 cm2/m2AVAI (VTI): 0.00 cm2/m2LVOT maxP.93 mmHgLVOT meanPG: | | 1.13 mmHgLVSI Dopp: 20.64 ml/m2LVSV Dopp: 42.74 mlLVOT Vmax: 0.69 m/sLVOT Vmean: | | 0.50 m/sLVOT VTI: 9.82 cmSeptal e': 0.05 m/sLateral e': 0.05 m/sPAEDP: 27.48 | | mmHgPRend P.48 mmHgPRend Vmax: 1.76 m/sHR: 91.39 BPMPV maxP.61 mmHgPV | | meanP.33 mmHgPV Vmax: 0.39 m/sPV Vmean: 0.27 m/sPV VTI: 6.61 cmRAP: 15 | | mmHgRVSP: 41.56 mmHgTR maxP.56 mmHgTR Vmax: 2.57 m/s Mate Relief: | | MWAuthenticated by: Gabe [facility] Date/Time: 11-07-2018 13:10:35 IMPRESSION: 1. | | The left ventricle is normal in size, mild concentric hypertrophy and severely impaired | | systolic function EF 20-25%.2. The right ventricle is severely enlarged with severely | | impaired systolic function.3. Moderate tricuspid regurgitation with mild pulmonary | | hypertension RVSP 41 mmHg.4. There is no pericardial effusion. | |Ao asc: 4.20 cm | |Ao sinus: 5.28 cm | |IVC: 2.92 cm | |EDV(Teich): 156.42 ml | |IVSd: 1.13 cm | |LVIDd: 5.64 cm | |LVPWd: 1.19 cm | |LVOT Diam: 2.35 cm | |%FS: 10.56 % | |EF(Teich): 22.74 % | |ESV(Teich): 120.85 ml | |IVSs: 1.27 cm | |LVIDs: 5.04 cm | |LVPWs: 1.29 cm | |SV(Teich): 35.57 ml | |RA Major: 7.26 cm | |RVIDd: 5.03 cm | |LVEF MOD A2C: 19.29 % | |SV MOD A2C: 30.52 ml | |LVEF MOD A4C: 27.94 % | |SV MOD A4C: 42.39 ml | |EF Biplane: 24.44 % | |LVEDV MOD BP: 156.94 ml | |LVESV MOD BP: 118.58 ml | |LVEDV MOD A2C: 158.17 ml | |LVLd A2C: 9.07 cm | |LVEDV MOD A4C: 151.68 ml | |LVLd A4C: 9.34 cm | |LVESV MOD A2C: 127.65 ml | |LVLs A2C: 8.63 cm | |LVESV MOD A4C: 109.29 ml | |LVLs A4C: 8.85 cm | |LAESV(A-L): 122.90 ml | |LAESV Index (A-L): 59.37 ml/m2 | |LAAs A2C: 32.31 cm2 | |LAESV A-L A2C: 132.42 ml | |LALs A2C: 6.69 cm | |LAAs A4C: 29.99 cm2 | |LAESV A-L A4C: 96.05 ml | |LALs A4C: 7.94 cm | |AR Dec [place]: 2.59 m/s2 | |AR Dec Time: 1546.99 ms | |AR maxP.22 mmHg | |AR PHT: 448.62 ms | |AR Vmax: 4.00 m/s | |HR: 109.18 BPM | |AV maxP.06 mmHg | |AV meanP.76 mmHg | |AV Vmax: 1.00 m/s | |AV Vmean: 0.81 m/s | |AV VTI: 21.36 cm | |CHAN Vmax: 2.99 cm2 | |CHAN (VTI): 2.00 cm2 | |AVAI Vmax: 0.00 cm2/m2 | |AVAI (VTI): 0.00 cm2/m2 | |LVOT maxP.93 mmHg | |LVOT meanP.13 mmHg | |LVSI Dopp: 20.64 ml/m2 | |LVSV Dopp: 42.74 ml | |LVOT Vmax: 0.69 m/s | |LVOT Vmean: 0.50 m/s | |LVOT VTI: 9.82 cm | |Septal e': 0.05 m/s | |Lateral e': 0.05 m/s | |PAEDP: 27.48 mmHg | |PRend P.48 mmHg | |PRend Vmax: 1.76 m/s | |HR: 91.39 BPM | |PV maxP.61 mmHg | |PV meanP.33 mmHg | |PV Vmax: 0.39 m/s | |PV Vmean: 0.27 m/s | |PV VTI: 6.61 cm | |RAP: 15 mmHg | |RVSP: 41.56 mmHg | |TR maxP.56 mmHg | |TR Vmax: 2.57 m/s | | | |Mate Relief: ESTUARDO | |Authenticated by: Gabe Conrad | |Report Date/Time: 11-07-2018 13:10:35 | | | |IMPRESSION: | |1. The left ventricle is normal in size, mild concentric hypertrophy and severely impaired systolic function EF 20-25%. | |2. The right ventricle is severely enlarged with severely impaired systolic function. | |3. Moderate tricuspid regurgitation with mild pulmonary hypertension RVSP 41 mmHg. | |4. There is no pericardial effusion. | + + Procalcitonin (11/07/2018 3:13 AM PST) + + + + + + | Component | Value | Ref Range | Performed | Pathologist | | | | | At | Signature | + + + + + + | PROCALCITON | 0.19Comment: | ng/mL | EXTERNAL | | | IN | INTERPRETIVE | | LAB | | | | INFORMATION: | | | | | | PROCALCITONIN PCT <= | | | | | | 0.5 ng/mL: Low risk | | | | | | for progression to | | | | | | severe systemic | | | | | | bacterial infection | | | | | | (severe sepsis/septic | | | | | | shock). Does not | | | | | | exclude an infection, | | | | | | because localized | | | | | | infections may be | | | | | | associated with such low | | | | | | levels. If PCT is | | | | | | measured very early | | | | | | after bacterial | | | | | | challenge (usually <6 | | | | | | hours), results may | | | | | | still be low and | | | | | | should re-assess PCT | | | | | | 6-24 hours later. PCT | | | | | | >0.5 and <= 2 ng/mL: | | | | | | Moderate risk for | | | | | | progression to severe | | | | | | systemic infection | | | | | | (severe sepsis/septic | | | | | | shock). Other | | | | | | conditions are known | | | | | | to elevate PCT, patient | | | | | | should be closely | | | | | | monitored both | | | | | | clinically and by | | | | | | re-assessing PCT | | | | | | within 6-24 hours. PCT > | | | | | | 2 ng/mL: High | | | | | | likelihood for | | | | | | progression to severe | | | | | | systemic bacterial | | | | | | infection (severe | | | | | | sepsis/septic shock). | | | | | | PCT >= 10 ng/mL: | | | | | | High likelihood of | | | | | | severe sepsis or septic | | | | | | shock.Testing performed | | | | | | at [facility];[address] [place] [address] | | | | | | [facility];[place] [address] | | | | + + + + + + + + | Specimen | + + | | + + + +---------+ + + | Performing | Address | City/State/Zipcode | Phone Number | | Organization | | | | + +---------+ + + | EXTERNAL LAB | | | | + +---------+ + + External Lab: CBC (11/07/2018 3:13 AM PST) + + + + + + | Component | Value | Ref Range | Performed | Pathologist | | | | | At | Signature | + + + + + + | WBC | 6.70 | 3.80 - 11.00 | EXTERNAL | | | | | K/uL | LAB | | + + + + + + | RED CELL | 4.42 | 4.20 - 5.70 | EXTERNAL | | | COUNT | | M/uL | LAB | | + + + + + + | Hgb | 14.4 | 13.2 - 17.0 | EXTERNAL | | | | | g/dL | LAB | | + + + + + + | Hematocrit, | 44.5 | 39.0 - 50.0 % | EXTERNAL | | | POC | | | LAB | | + + + + + + | MCV | 100.7 (H) | 80.0 - 100.0 fl | EXTERNAL | | | | | | LAB | | + + + + + + | MCH | 32.5 | 27.0 - 34.0 pg | EXTERNAL | | | | | | LAB | | + + + + + + | MCHC | 32.3 | 32.0 - 35.5 | EXTERNAL | | | | | g/dL | LAB | | + + + + + + | RDW-CV | 52.5 | 37 - 53 fl | EXTERNAL | | | | | | LAB | | + + + + + + | Platelet | 212 | 150 - 400 K/uL | EXTERNAL | | | Count | | | LAB | | | Plasma | | | | | + + + + + + | MPV | 9.5 | fl | EXTERNAL | | | | | | LAB | | + + + + + + | Differentia | AUTOMATED | | EXTERNAL | | | l Type | | | LAB | | + + + + + + | % Segmented | 65.89 | % | EXTERNAL | | | | | | LAB | | | Neutrophils | | | | | + + + + + + | % | 19.87 | % | EXTERNAL | | | Lymphocytes | | | LAB | | + + + + + + | % Monocytes | 11.47 | % | EXTERNAL | | | | | | LAB | | + + + + + + | % | 1.00 | % | EXTERNAL | | | Eosinophils | | | LAB | | + + + + + + | % Basophils | 1.77 | % | EXTERNAL | | | | | | LAB | | + + + + + + | Absolute | 4.42 | 1.90 - 7.40 | EXTERNAL | | | Segmented | | K/uL | LAB | | | Neutrophils | | | | | + + + + + + | Absolute | 1.33 | 1.00 - 3.90 | EXTERNAL | | | Lymphocytes | | K/uL | LAB | | + + + + + + | Absolute | 0.77 | 0.00 - 0.80 | EXTERNAL | | | Monocytes | | K/uL | LAB | | + + + + + + | Absolute | 0.07 | 0.00 - 0.50 | EXTERNAL | | | Eosinophils | | K/uL | LAB | | + + + + + + | Absolute | 0.12 (H)Comment: Testing | 0.00 - 0.10 | EXTERNAL | | | Basophils | performed at [facility], [address] | LAB | | | | [address], | | | | | | [place] [address] | | | | + + + + + + + + | Specimen | + + | Blood specimen | | (specimen) | + + + +---------+ + + | Performing | Address | City/State/Zipcode | Phone Number | | Organization | | | | + +---------+ + + | EXTERNAL LAB | | | | + +---------+ + + Phosphorus (11/07/2018 3:13 AM PST) + + + + + + | Component | Value | Ref Range | Performed | Pathologist | | | | | At | Signature | + + + + + + | PHOSPHORUS | 3.6Comment: Testing | 2.3 - 4.8 mg/dL | EXTERNAL | | | | performed at [facility];[address] | | LAB | | | | [address];[place], [place] | | | | | | [address] | | | | + + + + + + + + | Specimen | + + | Blood specimen | | (specimen) | + + + +---------+ + + | Performing | Address | City/State/Zipcode | Phone Number | | Organization | | | | + +---------+ + + | EXTERNAL LAB | | | | + +---------+ + + Magnesium (11/07/2018 3:13 AM PST) + + + + + + | Component | Value | Ref Range | Performed | Pathologist | | | | | At | Signature | + + + + + + | Magnesium | 1.9Comment: Testing | 1.7 - 2.4 mg/dL | EXTERNAL | | | | performed at [facility];[address] | | LAB | | | | [address];[place] | | | | | | [address] | | | | + + + [...] + +---------+ + + Basic Metabolic Panel (11/07/2018 3:13 AM PST) + + + + + + | Component | Value | Ref Range | Performed | Pathologist | | | | | At | Signature | + + + + + + | Na | 142 | 135 - 145 | EXTERNAL | | | | | mmol/L | LAB | | + + + + + + | K | 4.0 | 3.5 - 4.9 | EXTERNAL | | | | | mmol/L | LAB | | + + + + + + | Cl | 105 | 99 - 109 mmol/L | EXTERNAL | | | | | | LAB | | + + + + + + | CO2 | 28 | 23 - 32 mmol/L | EXTERNAL | | | | | | LAB | | + + + + + + | Anion Gap | 13 | 5 - 20 mmol/L | EXTERNAL | | | | | | LAB | | + + + + + + | Glucose, | 129 (H) | 65 - 99 mg/dL | EXTERNAL | | | Fasting | | | LAB | | + + + + + + | BUN | 19 | 8 - 25 mg/dL | EXTERNAL | | | | | | LAB | | + + + + + + | Creatinine | 0.70 | 0.70 - 1.30 | EXTERNAL | | | | | mg/dL | LAB | | + + + + + + | BUN/Creatin | 27 | | EXTERNAL | | | ine Ratio | | | LAB | | + + + + + + | Calcium | 8.3 (L) | 8.5 - 10.5 | EXTERNAL | [...] | | | | | | MDRD IDMO traceable | | | | | | equation.Testing | | | | | | performed at [facility] | | | | | | [facility];[place], [place] | | | | | | [address] | | | | + + + [...] + +---------+ + + ECG 12 lead (11/06/2018 2:06 PM PST) + + + + + + | Component | Value | Ref Range | Performed | Pathologist | | | | | At | Signature | + + + + + + | DIAGNOSIS: | Atrial fibrillation with | | EXTERNAL | | | | moderate ventricular | | LAB | | | | rateLeft axis | | | | | | deviationLow voltage | | | | | | QRSNonspecific ST and/or | | | | | | T wave | | | | | | abnormalitiesAbnormal | | | | | | ECGNo previous ECGs | | | | | | available Confirmed by | | | | | | JULIO NOLEN MD ([id number]) | | | | | | on 11/07/2018 2:20:16 PM | | | | + + + + + + + + | Specimen | + + | | + + + + + | Narrative | Performed At | + + + | [facility] | EXTERNAL LAB | + + + + +---------+ + + | Performing | Address | City/State/Zipcode | Phone Number | | Organization | | | | + +---------+ + + | EXTERNAL LAB | | | | + +---------+ + + XR Chest 1 Vw (11/06/2018 2:00 PM PST) + + | Specimen | + + | | + + + + + | Impressions | Performed At | + + + | 1. Right basilar infiltrate versus atelectasis and small right | | | effusion 2. Cardiomegaly without overt failure 3. Interval | | | extubation and removal of the nasogastric tube. Signed by: Arin | | | Larry Sign Date/Time: 11/06/2018 2:24 PM | | + + + + + + | Narrative | Performed At | + + + | CHEST ONE VIEW CLINICAL INFORMATION: COPD, Hypertension | | | COMPARISON: XR CHEST 1 VIEW (11/04/2018); XR CHEST AP PORTABLE | | | (11/03/2018); XR CHEST AP PORTABLE (11/03/2018); FINDINGS: Interval | | | extubation and removal of the nasogastric tube. The right arm PICC | | | line is unchanged in position. Cardiac size appears mildly generous | | | partially due to the AP lordotic projection. Normal pulmonary | | | vascular pattern. Right basilar parenchymal density and obscuration | | | of the right costophrenic angle suggesting infiltrate versus | | | atelectasis and a small right pleural effusion. | | + + + + + | Procedure Note | + + | David oSlorio Conversion - 04/16/2019 12:11 AM PDT CHEST ONE VIEW | | CLINICAL INFORMATION: | | COPD, Hypertension | | COMPARISON: | | XR CHEST 1 VIEW (11/04/2018); XR CHEST AP PORTABLE (11/03/2018); XR CHEST | | AP PORTABLE (11/03/2018); | | FINDINGS: | | Interval extubation and removal of the nasogastric tube. The right arm | | PICC line is unchanged in position. Cardiac size appears mildly | | generous partially due to the AP lordotic projection. Normal pulmonary | | vascular pattern. Right basilar parenchymal density and obscuration of | | the right costophrenic angle suggesting infiltrate versus atelectasis | | and a small right pleural effusion. | | IMPRESSION: | | 1. Right basilar infiltrate versus atelectasis and small right effusion | | 2. Cardiomegaly without overt failure | | 3. Interval extubation and removal of the nasogastric tube. | | Signed by: Larry Hinkle | | Sign Date/Time: 11/06/2018 2:24 PM | + + External Lab: CBC (11/06/2018 4:08 AM PST) + + + + + + | Component | Value | Ref Range | Performed | Pathologist | | | | | At | Signature | + + + + + + | WBC | 6.32 | 3.80 - 11.00 | EXTERNAL | | | | | K/uL | LAB | | + + + + + + | RED CELL | 4.18 (L) | 4.20 - 5.70 | EXTERNAL | | | COUNT | | M/uL | LAB | | + + + + + + | Hgb | 13.7 | 13.2 - 17.0 | EXTERNAL | | | | | g/dL | LAB | | + + + + + + | Hematocrit, | 41.9 | 39.0 - 50.0 % | EXTERNAL | | | POC | | | LAB | | + + + + + + | MCV | 100.2 (H) | 80.0 - 100.0 fl | EXTERNAL | | | | | | LAB | | + + + + + + | MCH | 32.7 | 27.0 - 34.0 pg | EXTERNAL | | | | | | LAB | | + + + + + + | MCHC | 32.7 | 32.0 - 35.5 | EXTERNAL | | | | | g/dL | LAB | | + + + + + + | RDW-CV | 52.9 | 37 - 53 fl | EXTERNAL | | | | | | LAB | | + + + + + + | Platelet | 189 | 150 - 400 K/uL | EXTERNAL | | | Count | | | LAB | | | Plasma | | | | | + + + + + + | MPV | 8.9 | fl | EXTERNAL | | | | | | LAB | | + + + + + + | Differentia | AUTOMATED | | EXTERNAL | | | l Type | | | LAB | | + + + + + + | % Segmented | 65.43 | % | EXTERNAL | | | | | | LAB | | | Neutrophils | | | | | + + + + + + | % | 18.49 | % | EXTERNAL | | | Lymphocytes | | | LAB | | + + + + + + | % Monocytes | 14.33 | % | EXTERNAL | | | | | | LAB | | + + + + + + | % | 1.14 | % | EXTERNAL | | | Eosinophils | | | LAB | | + + + + + + | % Basophils | 0.61 | % | EXTERNAL | | | | | | LAB | | + + + + + + | Absolute | 4.13 | 1.90 - 7.40 | EXTERNAL | | | Segmented | | K/uL | LAB | | | Neutrophils | | | | | + + + + + + | Absolute | 1.17 | 1.00 - 3.90 | EXTERNAL | | | Lymphocytes | | K/uL | LAB | | + + + + + + | Absolute | 0.91 (H) | 0.00 - 0.80 | EXTERNAL | | | Monocytes | | K/uL | LAB | | + + + + + + | Absolute | 0.07 | 0.00 - 0.50 | EXTERNAL | | | Eosinophils | | K/uL | LAB | | + + + + + + | Absolute | 0.04Comment: Testing | 0.00 - 0.10 | EXTERNAL | | | Basophils | performed at [facility], [address] | [address] | LAB | | | | [address], | | | | | | [place] [address] | | | | + + + + + + + + | Specimen | + + | Blood specimen | | (specimen) | + + + +---------+ + + | Performing | Address | City/State/Zipcode | Phone Number | | Organization | | | | + +---------+ + + | EXTERNAL LAB | | | | + +---------+ + + Phosphorus (11/06/2018 4:08 AM PST) + + + + + + | Component | Value | Ref Range | Performed | Pathologist | | | | | At | Signature | + + + + + + | PHOSPHORUS | 3.1Comment: Testing | 2.3 - 4.8 mg/dL | EXTERNAL | | | | performed at [facility], [address] | | LAB | | | | [address], | | | | | | [place] [address] | | | | + + + + + + + + | Specimen | + + | Blood specimen | | (specimen) | + + + +---------+ + + | Performing | Address | City/State/Zipcode | Phone Number | | Organization | | | | + +---------+ + + | EXTERNAL LAB | | | | + +---------+ + + Magnesium (11/06/2018 4:08 AM PST) + + + + + + | Component | Value | Ref Range | Performed | Pathologist | | | | | At | Signature | + + + + + + | Magnesium | 2.1Comment: Testing | 1.7 - 2.4 mg/dL | EXTERNAL | | | | performed at [facility], [address] | | LAB | | | | [address], | | | | | | [place] [address] | | | | + + + [...] + +---------+ + + Basic Metabolic Panel (11/06/2018 4:08 AM PST) + + + + + + | Component | Value | Ref Range | Performed | Pathologist | | | | | At | Signature | + + + + + + | Na | 138 | 135 - 145 | EXTERNAL | | | | | mmol/L | LAB | | + + + + + + | K | 3.7 | 3.5 - 4.9 | EXTERNAL | | | | | mmol/L | LAB | | + + + + + + | Cl | 101 | 99 - 109 mmol/L | EXTERNAL | | | | | | LAB | | + + + + + + | CO2 | 27 | 23 - 32 mmol/L | EXTERNAL | | | | | | LAB | | + + + + + + | Anion Gap | 14 | 5 - 20 mmol/L | EXTERNAL | | | | | | LAB | | + + + + + + | Glucose, | 91 | 65 - 99 mg/dL | EXTERNAL | | | Fasting | | | LAB | | + + + + + + | BUN | 21 | 8 - 25 mg/dL | EXTERNAL | | | | | | LAB | | + + + + + + | Creatinine | 0.7 | 0.70 - 1.30 | EXTERNAL | | | | | mg/dL | LAB | | + + + + + + | BUN/Creatin | 30 | | EXTERNAL | | | ine Ratio | | | LAB | | + + + + + + | Calcium | 8.9 | 8.5 - 10.5 | EXTERNAL | [...] | | | | | performed at [facility], [address] | | | | | | [address], | | | | | | [place] [address] | | | | + + + + + + + + | Specimen | + + | Blood specimen | | (specimen) | + + + +---------+ + + | Performing | Address | City/State/Zipcode | Phone Number | | Organization | | | | + +---------+ + + | EXTERNAL LAB | | | | + +---------+ + + Protime INR (11/05/2018 9:07 AM PST) + + + + + + | Component | Value | Ref Range | Performed | Pathologist | | | | | At | Signature | + + + + + + | INR | 1.2Comment: REFERENCE | | EXTERNAL | | | | RANGE:0.9 - 1.2 | | LAB | | | | NON-ANTICOAGULATED2.0 | | | | | | - 3.0 ALL OTHER | | | | | | THERAPEUTIC | | | | | | INDICATIONS2.5 - 3.5 | | | | | | MECHANICAL HEART VALVES, | | | | | | RECURRENT OR SYSTEMIC | | | | | | EMBOLISMTesting | | | | | | performed at [facility] | | | | | | [facility];[place], [place] | | | | | | [address] | | | | + + + + + + + + | Specimen | + + | Blood specimen | | (specimen) | + + + +---------+ + + | Performing | Address | City/State/Zipcode | Phone Number | | Organization | | | | + +---------+ + + | EXTERNAL LAB | | | | + +---------+ + + Potassium (11/05/2018 9:07 AM PST) + + + + + + | Component | Value | Ref Range | Performed | Pathologist | | | | | At | Signature | + + + + + + | K | 4.1Comment: Testing | 3.5 - 4.9 | EXTERNAL | | | | performed at [facility];[address] | mmol/L | LAB | | | | [address];[place] | | | | | | [address] | | | | + + + [...] + +---------+ + + External Lab: CBC (11/05/2018 4:16 AM PST) + + + + + + | Component | Value | Ref Range | Performed | Pathologist | | | | | At | Signature | + + + + + + | WBC | 8.02 | 3.80 - 11.00 | EXTERNAL | | | | | K/uL | LAB | | + + + + + + | RED CELL | 4.32 | 4.20 - 5.70 | EXTERNAL | | | COUNT | | M/uL | LAB | | + + + + + + | Hgb | 14.4 | 13.2 - 17.0 | EXTERNAL | | | | | g/dL | LAB | | + + + + + + | Hematocrit, | 43.2 | 39.0 - 50.0 % | EXTERNAL | | | POC | | | LAB | | + + + + + + | MCV | 100.0 | 80.0 - 100.0 fl | EXTERNAL | | | | | | LAB | | + + + + + + | MCH | 33.3 | 27.0 - 34.0 pg | EXTERNAL | | | | | | LAB | | + + + + + + | MCHC | 33.3 | 32.0 - 35.5 | EXTERNAL | | | | | g/dL | LAB | | + + + + + + | RDW-CV | 51.6 | 37 - 53 fl | EXTERNAL | | | | | | LAB | | + + + + + + | Platelet | 189 | 150 - 400 K/uL | EXTERNAL | | | Count | | | LAB | | | Plasma | | | | | + + + + + + | MPV | 8.7 | fl | EXTERNAL | | | | | | LAB | | + + + + + + | Differentia | AUTOMATED | | EXTERNAL | | | l Type | | | LAB | | + + + + + + | % Segmented | 72.22 | % | EXTERNAL | | | | | | LAB | | | Neutrophils | | | | | + + + + + + | % | 14.61 | % | EXTERNAL | | | Lymphocytes | | | LAB | | + + + + + + | % Monocytes | 12.17 | % | EXTERNAL | | | | | | LAB | | + + + + + + | % | 0.65 | % | EXTERNAL | | | Eosinophils | | | LAB | | + + + + + + | % Basophils | 0.35 | % | EXTERNAL | | | | | | LAB | | + + + + + + | Absolute | 5.79 | 1.90 - 7.40 | EXTERNAL | | | Segmented | | K/uL | LAB | | | Neutrophils | | | | | + + + + + + | Absolute | 1.17 | 1.00 - 3.90 | EXTERNAL | | | Lymphocytes | | K/uL | LAB | | + + + + + + | Absolute | 0.98 (H) | 0.00 - 0.80 | EXTERNAL | | | Monocytes | | K/uL | LAB | | + + + + + + | Absolute | 0.05 | 0.00 - 0.50 | EXTERNAL | | | Eosinophils | | K/uL | LAB | | + + + + + + | Absolute | 0.03Comment: Testing | 0.00 - 0.10 | EXTERNAL | | | Basophils | performed at [facility], [address] | [address] | LAB | | | | [address], | | | | | | [place] [address] | | | | + + + + + + + + | Specimen | + + | Blood specimen | | (specimen) | + + + +---------+ + + | Performing | Address | City/State/Zipcode | Phone Number | | Organization | | | | + +---------+ + + | EXTERNAL LAB | | | | + +---------+ + + Phosphorus (11/05/2018 4:16 AM PST) + + + + + + | Component | Value | Ref Range | Performed | Pathologist | | | | | At | Signature | + + + + + + | PHOSPHORUS | 3.4Comment: Testing | 2.3 - 4.8 mg/dL | EXTERNAL | | | | performed at [facility], [address] | | LAB | | | | [address], | | | | | | [place] [address] | | | | + + + + + + + + | Specimen | + + | Blood specimen | | (specimen) | + + + +---------+ + + | Performing | Address | City/State/Zipcode | Phone Number | | Organization | | | | + +---------+ + + | EXTERNAL LAB | | | | + +---------+ + + Magnesium (11/05/2018 4:16 AM PST) + + + + + + | Component | Value | Ref Range | Performed | Pathologist | | | | | At | Signature | + + + + + + | Magnesium | 2.2Comment: Testing | 1.7 - 2.4 mg/dL | EXTERNAL | | | | performed at [facility], [address] | | LAB | | | | [address], | | | | | | [place] [address] | | | | + + + + + + + + | Specimen | + + | Blood specimen | | (specimen) | + + + +---------+ + + | Performing | Address | City/State/Zipcode | Phone Number | | Organization | | | | + +---------+ + + | EXTERNAL LAB | | | | + +---------+ + + Comprehensive Metabolic Panel (11/05/2018 4:16 AM PST) + + + + + + | Component | Value | Ref Range | Performed | Pathologist | | | | | At | Signature | + + + + + + | Na | 138 | 135 - 145 | EXTERNAL | | | | | mmol/L | LAB | | + + + + + + | K | 3.6 | 3.5 - 4.9 | EXTERNAL | | | | | mmol/L | LAB | | + + + + + + | Cl | 100 | 99 - 109 mmol/L | EXTERNAL | | | | | | LAB | | + + + + + + | CO2 | 26 | 23 - 32 mmol/L | EXTERNAL | | | | | | LAB | | + + + + + + | Anion Gap | 16 | 5 - 20 mmol/L | EXTERNAL | | | | | | LAB | | + + + + + + | Glucose, | 97 | 65 - 99 mg/dL | EXTERNAL | | | Fasting | | | LAB | | + + + + + + | BUN | 27 (H) | 8 - 25 mg/dL | EXTERNAL | | | | | | LAB | | + + + + + + | Creatinine | 0.9 | 0.70 - 1.30 | EXTERNAL | | | | | mg/dL | LAB | | + + + + + + | BUN/Creatin | 30 | | EXTERNAL | | | ine Ratio | | | LAB | | + + + + + + | Calcium | 8.7 | 8.5 - 10.5 | EXTERNAL | | | | | mg/dL | LAB | | + + + + + + | Protein, | 5.5 (L) | 6.3 - 8.2 g/dL | EXTERNAL | | | Total | | | LAB | | + + + + + + | Albumin | 2.5 (L) | 3.6 - 5.0 g/dL | EXTERNAL | | | | | | LAB | | + + + + + + | Globulin | 3.0 | 1.3 - 4.9 g/dL | EXTERNAL | | | | | | LAB | | + + + + + + | A/G Ratio | 0.8 (L) | 1.0 - 2.4 | EXTERNAL | | | | | | LAB | | + + + + + + | Bilirubin | 2.4 (H) | 0.1 - 1.5 mg/dL | EXTERNAL | | | Total | | | LAB | | + + + + + + | ALP, | 48 | 35 - 115 U/L | EXTERNAL | | | External | | | LAB | | + + + + + + | AST | 26 | 10 - 45 U/L | EXTERNAL | | | | | | LAB | | + + + + + + | ALT | 48 | 10 - 65 U/L | EXTERNAL | | | | | [...] | | | | | performed at [facility], [address] | | | | | | [facility], | | | | | | [place] [address] | | | | + + + + + + + + | Specimen | + + | Blood specimen | | (specimen) | + + + +---------+ + + | Performing | Address | City/State/Zipcode | Phone Number | | Organization | | | | + +---------+ + + | EXTERNAL LAB | | | | + +---------+ + + CK-MB (11/04/2018 2:08 PM PST) + + + + + -+ | Component | Value | Ref Range | Performed | Pathologist | | | | | At | Signature | + + + + + -+ | CK-MB | 2.6 | 0.5 - 3.6 ng/mL | EXTERNAL | | | | | | LAB | | + + + + + -+ | CK-MB Index | 6.8Comment: CK INDEX | | EXTERNAL | | | | INTERPRETATION: | | LAB | | | | MMB ng/mL | | | | | | | | | | | |CK INDEX INTERPRETATION: | | | | | | MMB ng/mL | | | | | | | | | | + + + + + -+ + + | Specimen | + + | Blood specimen | | (specimen) | + + + +---------+ + + | Performing | Address | City/State/Zipcode | Phone Number | | Organization | | | | + +---------+ + + | EXTERNAL LAB | | | | + +---------+ + + Troponin I (11/04/2018 2:08 PM PST) + + + + + + | Component | Value | Ref Range | Performed | Pathologist | | | | | At | Signature | + + + + + + | Troponin I, | 0.113 (H)Comment: 0.04 | 0.00 - 0.04 | EXTERNAL | | | Qual | ng/mL or less | ng/mL | LAB | | | | Negative, repeat | | | | | | testing in four to six | | | | | | hour if clinically | | | | | | indicted0.05 to 0.77 | | | | | | ng/mL | | | | | | Suspicious for | | | | | | myocardial injury. | | | | | | Serial measurements may | | | | | | be necessary to confirm | | | | | | or exclude the diagnosis | | | | | | of acute coronary | | | | | | syndrome. Repeat testing | | | | | | in four to six hours if | | | | | | indicated.0.78 or | | | | | | greater ng/mL | | | | | | Consistent with | | | | | | myocardial injury. | | | | | | Clinical and laboratory | | | | | | correlation recommended. | | | | | | NOTE NEW REFERENCE | | | | | | RANGETesting performed | | | | | | at [facility];[address];[place] [address] | | | | + + + + + + + + | Specimen | + + | Blood specimen | | (specimen) | + + + +---------+ + + | Performing | Address | City/State/Zipcode | Phone Number | | Organization | | | | + +---------+ + + | EXTERNAL LAB | | | | + +---------+ + + CK Total (11/04/2018 2:08 PM PST) + + + + + + | Component | Value | Ref Range | Performed | Pathologist | | | | | At | Signature | + + + + + + | CK, Total | 38 (L)Comment: Testing | 55 - 400 U/L | EXTERNAL | | | | performed at [facility];[address] | | LAB | | | [address];[place], [place] | | | | | | [address] | | | | + + + + + + + + | Specimen | + + | Blood specimen | | (specimen) | + + + +---------+ + + | Performing | Address | City/State/Zipcode | Phone Number | | Organization | | | | + +---------+ + + | EXTERNAL LAB | | | | + +---------+ + + CK-MB (11/04/2018 7:43 AM PST) + + + + + -+ | Component | Value | Ref Range | Performed | Pathologist | | | | | At | Signature | + + + + + -+ | CK-MB | 2.3 | 0.5 - 3.6 ng/mL | EXTERNAL | | | | | | LAB | | + + + + + -+ | CK-MB Index | 7.2Comment: CK INDEX | | EXTERNAL | | | | INTERPRETATION: | | LAB | | | | MMB ng/mL | | | | | | | | | | | |CK INDEX INTERPRETATION: | | | | | | MMB ng/mL | | | | | | | | | | + + + + + -+ + + | Specimen | + + | Blood specimen | | (specimen) | + + + +---------+ + + | Performing | Address | City/State/Zipcode | Phone Number | | Organization | | | | + +---------+ + + | EXTERNAL LAB | | | | + +---------+ + + Troponin I (11/04/2018 7:43 AM PST) + + + + + + | Component | Value | Ref Range | Performed | Pathologist | | | | | At | Signature | + + + + + + | Troponin I, | 0.139 (H)Comment: 0.04 | 0.00 - 0.04 | EXTERNAL | | | Qual | ng/mL or less | ng/mL | LAB | | | | Negative, repeat | | | | | | testing in four to six | | | | | | hour if clinically | | | | | | indicted0.05 to 0.77 | | | | | | ng/mL | | | | | | Suspicious for | | | | | | myocardial injury. | | | | | | Serial measurements may | | | | | | be necessary to confirm | | | | | | or exclude the diagnosis | | | | | | of acute coronary | | | | | | syndrome. Repeat testing | | | | | | in four to six hours if | | | | | | indicated.0.78 or | | | | | | greater ng/mL | | | | | | Consistent with | | | | | | myocardial injury. | | | | | | Clinical and laboratory | | | | | | correlation recommended. | | | | | | NOTE NEW REFERENCE | | | | | | RANGETesting performed | | | | | | at [facility];[address] | | | | | | [address];[place] [address] | | | | + + + + + + + + | Specimen | + + | Blood specimen | | (specimen) | + + + +---------+ + + | Performing | Address | City/State/Zipcode | Phone Number | | Organization | | | | + +---------+ + + | EXTERNAL LAB | | | | + +---------+ + + Magnesium (11/04/2018 7:43 AM PST) + + + + + + | Component | Value | Ref Range | Performed | Pathologist | | | | | At | Signature | + + + + + + | Magnesium | 2.4Comment: Testing | 1.7 - 2.4 mg/dL | EXTERNAL | | | | performed at [facility];[address] | | LAB | | | | [address];[place], [place] | | | | | | [address] | | | | + + + + + + + + | Specimen | + + | Blood specimen | | (specimen) | + + + +---------+ + + | Performing | Address | City/State/Zipcode | Phone Number | | Organization | | | | + +---------+ + + | EXTERNAL LAB | | | | + +---------+ + + CK Total (11/04/2018 7:43 AM PST) + + + + + + | Component | Value | Ref Range | Performed | Pathologist | | | | | At | Signature | + + + + + + | CK, Total | 32 (L)Comment: Testing | 55 - 400 U/L | EXTERNAL | | | | performed at [facility];[address] | | LAB | | | | [address];[place] | | | | | | [address] | | | | + + + + + + + + | Specimen | + + | Blood specimen | | (specimen) | + + + +---------+ + + | Performing | Address | City/State/Zipcode | Phone Number | | Organization | | | | + +---------+ + + | EXTERNAL LAB | | | | + +---------+ + + Procalcitonin (11/04/2018 4:10 AM PST) + + + + + + | Component | Value | Ref Range | Performed | Pathologist | | | | | At | Signature | + + + + + + | PROCALCITON | 1.13 (H)Comment: | ng/mL | EXTERNAL | | | IN | INTERPRETIVE | | LAB | | | | INFORMATION: | | | | | | PROCALCITONIN PCT <= | | | | | | 0.5 ng/mL: Low risk | | | | | | for progression to | | | | | | severe systemic | | | | | | bacterial infection | | | | | | (severe sepsis/septic | | | | | | shock). Does not | | | | | | exclude an infection, | | | | | | because localized | | | | | | infections may be | | | | | | associated with such low | | | | | | levels. If PCT is | | | | | | measured very early | | | | | | after bacterial | | | | | | challenge (usually <6 | | | | | | hours), results may | | | | | | still be low and | | | | | | should re-assess PCT | | | | | | 6-24 hours later. PCT | | | | | | >0.5 and <= 2 ng/mL: | | | | | | Moderate risk for | | | | | | progression to severe | | | | | | systemic infection | | | | | | (severe sepsis/septic | | | | | | shock). Other | | | | | | conditions are known | | | | | | to elevate PCT, patient | | | | | | should be closely | | | | | | monitored both | | | | | | clinically and by | | | | | | re-assessing PCT | | | | | | within 6-24 hours. PCT > | | | | | | 2 ng/mL: High | | | | | | likelihood for | | | | | | progression to severe | | | | | | systemic bacterial | | | | | | infection (severe | | | | | | sepsis/septic shock). | | | | | | PCT >= 10 ng/mL: | | | | | | High likelihood of | | | | | | severe sepsis or septic | | | | | | shock.Testing performed | | | | | | at [facility];[address] [place] [address] | | | | | | [facility];[place] [address] | | | | + + + + + + + + | Specimen | + + | | + + + +---------+ + + | Performing | Address | City/State/Zipcode | Phone Number | | Organization | | | | + +---------+ + + | EXTERNAL LAB | | | | + +---------+ + + External Lab: CBC (11/04/2018 4:10 AM PST) + + + + + + | Component | Value | Ref Range | Performed | Pathologist | | | | | At | Signature | + + + + + + | WBC | 12.24 (H) | 3.80 - 11.00 | EXTERNAL | | | | | K/uL | LAB | | + + + + + + | RED CELL | 4.57 | 4.20 - 5.70 | EXTERNAL | | | COUNT | | M/uL | LAB | | + + + + + + | Hgb | 14.9 | 13.2 - 17.0 | EXTERNAL | | | | | g/dL | LAB | | + + + + + + | Hematocrit, | 45.9 | 39.0 - 50.0 % | EXTERNAL | | | POC | | | LAB | | + + + + + + | MCV | 100.4 (H) | 80.0 - 100.0 fl | EXTERNAL | | | | | | LAB | | + + + + + + | MCH | 32.7 | 27.0 - 34.0 pg | EXTERNAL | | | | | | LAB | | + + + + + + | MCHC | 32.5 | 32.0 - 35.5 | EXTERNAL | | | | | g/dL | LAB | | + + + + + + | RDW-CV | 53.8 (H) | 37 - 53 fl | EXTERNAL | | | | | | LAB | | + + + + + + | Platelet | 245 | 150 - 400 K/uL | EXTERNAL | | | Count | | | LAB | | | Plasma | | | | | + + + + + + | MPV | 9.0 | fl | EXTERNAL | | | | | | LAB | | + + + + + + | Differentia | AUTOMATED | | EXTERNAL | | | l Type | | | LAB | | + + + + + + | % Segmented | 82.88 | % | EXTERNAL | | | | | | LAB | | | Neutrophils | | | | | + + + + + + | % | 7.00 | % | EXTERNAL | | | Lymphocytes | | | LAB | | + + + + + + | % Monocytes | 9.76 | % | EXTERNAL | | | | | | LAB | | + + + + + + | % | 0.07 | % | EXTERNAL | | | Eosinophils | | | LAB | | + + + + + + | % Basophils | 0.29 | % | EXTERNAL | | | | | | LAB | | + + + + + + | Absolute | 10.14 (H) | 1.90 - 7.40 | EXTERNAL | | | Segmented | | K/uL | LAB | | | Neutrophils | | | | | + + + + + + | Absolute | 0.86 (L) | 1.00 - 3.90 | EXTERNAL | | | Lymphocytes | | K/uL | LAB | | + + + + + + | Absolute | 1.19 (H) | 0.00 - 0.80 | EXTERNAL | | | Monocytes | | K/uL | LAB | | + + + + + + | Absolute | 0.01 | 0.00 - 0.50 | EXTERNAL | | | Eosinophils | | K/uL | LAB | | + + + + + + | Absolute | 0.04Comment: Testing | 0.00 - 0.10 | EXTERNAL | | | Basophils | performed at [facility], [address] | [address]/u[address] | LAB | | | | [address], | | | | | | [place] [address] | | | | + + + + + + + + | Specimen | + + | Blood specimen | | (specimen) | + + + +---------+ + + | Performing | Address | City/State/Zipcode | Phone Number | | Organization | | | | + +---------+ + + | EXTERNAL LAB | | | | + +---------+ + + Phosphorus (11/04/2018 4:10 AM PST) + + + + + + | Component | Value | Ref Range | Performed | Pathologist | | | | | At | Signature | + + + + + + | PHOSPHORUS | 5.7 (H)Comment: Testing | 2.3 - 4.8 mg/dL | EXTERNAL | | | | performed at [facility];[address] | | LAB | | | | [address];[place], [place] | | | | | | [address] | | | | + + + + + + + + | Specimen | + + | Blood specimen | | (specimen) | + + + +---------+ + + | Performing | Address | City/State/Zipcode | Phone Number | | Organization | | | | + +---------+ + + | EXTERNAL LAB | | | | + +---------+ + + Magnesium (11/04/2018 4:10 AM PST) + + + + + + | Component | Value | Ref Range | Performed | Pathologist | | | | | At | Signature | + + + + + + | Magnesium | 2.1Comment: Testing | 1.7 - 2.4 mg/dL | EXTERNAL | | | | performed at [facility] | | LAB | | | | [address];[place] | | | | | | [address] | | | | + + + [...] + +---------+ + + Basic Metabolic Panel (11/04/2018 4:10 AM PST) + + + + + + | Component | Value | Ref Range | Performed | Pathologist | | | | | At | Signature | + + + + + + | Na | 137 | 135 - 145 | EXTERNAL | | | | | mmol/L | LAB | | + + + + + + | K | 4.6 | 3.5 - 4.9 | EXTERNAL | | | | | mmol/L | LAB | | + + + + + + | Cl | 102 | 99 - 109 mmol/L | EXTERNAL | | | | | | LAB | | + + + + + + | CO2 | 25 | 23 - 32 mmol/L | EXTERNAL | | | | | | LAB | | + + + + + + | Anion Gap | 15 | 5 - 20 mmol/L | EXTERNAL | | | | | | LAB | | + + + + + + | Glucose, | 191 (H) | 65 - 99 mg/dL | EXTERNAL | | | Fasting | | | LAB | | + + + + + + | BUN | 25 | 8 - 25 mg/dL | EXTERNAL | | | | | | LAB | | + + + + + + | Creatinine | 1.26 | 0.70 - 1.30 | EXTERNAL | | | | | mg/dL | LAB | | + + + + + + | BUN/Creatin | 20 | | EXTERNAL | | | ine Ratio | | | LAB | | + + + + + + | Calcium | 8.6 | 8.5 - 10.5 | EXTERNAL | | | | | mg/dL | LAB | | + + + + + + | Estimated | 59 (L)Comment: GFR <60: | mL/min/1.73m2 | EXTERNAL | [...] | | | | | performed at [facility] | | | | | | [facility];[place], [place] | | | | | | [address] | | | | + + + + + + + + | Specimen | + + | Blood specimen | | (specimen) | + + + +---------+ + + | Performing | Address | City/State/Zipcode | Phone Number | | Organization | | | | + +---------+ + + | EXTERNAL LAB | | | | + +---------+ + + US Abdomen Limited (11/04/2018 2:51 AM PST) + + | Specimen | + + | | + + + + + | Impressions | Performed At | + + + | 1. Heterogeneous thickened gallbladder wall. Negative sonographic | | | Harden sign. No shadowing gallstones evident. No dilated | | | intrahepatic or extrahepatic bile ducts. 2. Mild hepatomegaly. | | | Minimal ascites fluid seen adjacent to the right lobe of the liver. | | | Signed by: MD Louie, Dr. Nathan Cool Date/Time: 11/04/2018 3:04 AM | | + + + + + + | Narrative | Performed At | + + + | ULTRASOUND ABDOMEN, LIMITED CLINICAL INFORMATION: Abdominal pain | | | COMPARISON: ECHO OUTSIDE INTERPRETATION (03/23/2016); PROCEDURE: | | | Evaluation of the gallbladder, if present, common bile duct, liver, | | | and right kidney. FINDINGS: Liver: Liver parenchyma and contour | | | appears normal. Craniocaudal span of the right lobe measures 20.8 | | | cm. Gallbladder/Bile Duct: No shadowing gallstones. Gallbladder | | | wall appears irregular and thickened, up to 4-5 mm. Sonographic | | | Harden's sign is negative. No intrahepatic or extrahepatic biliary | | | dilatation. Common bile duct 7.0 mm. Right kidney: 12.6 cm length. | | | No solid renal mass, hydronephrosis or definitive calculi. | | | Pancreas: The visible portions of the pancreatic head appear normal. | | | The pancreatic body and tail are obscured by bowel gas. IVC normal. | | | A small amount of ascites fluid is seen adjacent to the right lobe | | | of the liver. | | + + + + + | Procedure Note | + + | Osmin, Rad Conversion - 04/16/2019 12:11 AM PDT ULTRASOUND ABDOMEN, LIMITED | | CLINICAL INFORMATION: | | Abdominal pain | | COMPARISON: | | ECHO OUTSIDE INTERPRETATION (03/23/2016); | | PROCEDURE: | | Evaluation of the gallbladder, if present, common bile duct, liver, and | | right kidney. | | FINDINGS: | | Liver: Liver parenchyma and contour appears normal. Craniocaudal span | | of the right lobe measures 20.8 cm. | | Gallbladder/Bile Duct: No shadowing gallstones. Gallbladder wall | | appears irregular and thickened, up to 4-5 mm. Sonographic Harden's | | sign is negative. No intrahepatic or extrahepatic biliary dilatation. | | Common bile duct 7.0 mm. | | Right kidney: 12.6 cm length. No solid renal mass, hydronephrosis or | | definitive calculi. | | Pancreas: The visible portions of the pancreatic head appear normal. | | The pancreatic body and tail are obscured by bowel gas. | | IVC normal. A small amount of ascites fluid is seen adjacent to the | | right lobe of the liver. | | IMPRESSION: | | 1. Heterogeneous thickened gallbladder wall. Negative sonographic | | Harden sign. No shadowing gallstones evident. No dilated intrahepatic | | or extrahepatic bile ducts. | | 2. Mild hepatomegaly. Minimal ascites fluid seen adjacent to the right | | lobe of the liver. | | Signed by: MD Louie, Dr. Evans | | Sign Date/Time: 11/04/2018 3:04 AM | + + XR Chest 1 Vw (11/04/2018 1:36 AM PST) + + | Specimen | + + | | + + + + + | Narrative | Performed At | + + + | CHEST ONE VIEW CLINICAL INFORMATION: Tube, line position. | | | COMPARISON: XR CHEST AP PORTABLE (11/03/2018); XR CHEST AP PORTABLE | | | (11/03/2018); FINDINGS/IMPRESSION: 1. Endotracheal tube projects 6.6 | | | cm above the sanjay. Right upper extremity PICC line terminates at | | | the superior atrial caval junction. Enteric tube extends below the | | | level of the diaphragms, likely terminating in the stomach. 2. There | | | is worsening central pulmonary vascular congestion and right greater | | | than left basilar opacities which may represent layering pleural | | | effusions and underlying atelectasis/consolidation and/or edema. 3. | | | Cardiomediastinal contours are stable. 4. No pneumothorax. Signed | | | by: MD Caity, Jami Sign Date/Time: 11/04/2018 1:47 AM | | + + + + + | Procedure Note | + + | Osmin, David Conversion - 04/16/2019 12:11 AM PDT CHEST ONE VIEW | | CLINICAL INFORMATION: | | Tube, line position. | | COMPARISON: | | XR CHEST AP PORTABLE (11/03/2018); XR CHEST AP PORTABLE (11/03/2018); | | FINDINGS/IMPRESSION: | | 1. Endotracheal tube projects 6.6 cm above the sanjay. Right upper | | extremity PICC line terminates at the superior atrial caval junction. | | Enteric tube extends below the level of the diaphragms, likely | | terminating in the stomach. | | 2. There is worsening central pulmonary vascular congestion and right | | greater than left basilar opacities which may represent layering | | pleural effusions and underlying atelectasis/consolidation and/or edema. | | 3. Cardiomediastinal contours are stable. | | 4. No pneumothorax. | | Signed by: MD Caity, Jami | | Sign Date/Time: 11/04/2018 1:47 AM | + + Culture, Blood, 2nd Specimen (11/04/2018 1:13 AM PST) + + | Specimen | + + | Blood specimen | | (specimen) | + + + + + | Narrative | Performed At | + + + | Specimen Description BLOOD SPECIAL | EXTERNAL LAB | | REQUESTS LAC CULTURE | | | NO GROWTH 6 DAYS | | + + + + +---------+ + + | Performing | Address | City/State/Zipcode | Phone Number | | Organization | | | | + +---------+ + + | EXTERNAL LAB | | | | + +---------+ + + Culture, Blood (11/04/2018 1:12 AM PST) + + | Specimen | + + | Blood specimen | | (specimen) | + + + + + | Narrative | Performed At | + + + | Specimen Description BLOOD SPECIAL | EXTERNAL LAB | | REQUESTS RT ARM CULTURE | | | NO GROWTH 6 DAYS | | + + + + +---------+ + + | Performing | Address | City/State/Zipcode | Phone Number | | Organization | | | | + +---------+ + + | EXTERNAL LAB | | | | + +---------+ + + CK-MB (11/04/2018 1:12 AM PST) + + + + + -+ | Component | Value | Ref Range | Performed | Pathologist | | | | | At | Signature | + + + + + -+ | CK-MB | 2.4 | 0.5 - 3.6 ng/mL | EXTERNAL | | | | | | LAB | | + + + + + -+ | CK-MB Index | 7.5Comment: CK INDEX | | EXTERNAL | | | | INTERPRETATION: | | LAB | | | | MMB ng/mL | | | | | | | | | | | |CK INDEX INTERPRETATION: | | | | | | MMB ng/mL | | | | | | | | | | + + + + + -+ + + | Specimen | + + | Blood specimen | | (specimen) | + + + +---------+ + + | Performing | Address | City/State/Zipcode | Phone Number | | Organization | | | | + +---------+ + + | EXTERNAL LAB | | | | + +---------+ + + Troponin I (11/04/2018 1:12 AM PST) + + + + + + | Component | Value | Ref Range | Performed | Pathologist | | | | | At | Signature | + + + + + + | Troponin I, | 0.168 (H)Comment: 0.04 | 0.00 - 0.04 | EXTERNAL | | | Qual | ng/mL or less | ng/mL | LAB | | | | Negative, repeat | | | | | | testing in four to six | | | | | | hour if clinically | | | | | | indicted0.05 to 0.77 | | | | | | ng/mL | | | | | | Suspicious for | | | | | | myocardial injury. | | | | | | Serial measurements may | | | | | | be necessary to confirm | | | | | | or exclude the diagnosis | | | | | | of acute coronary | | | | | | syndrome. Repeat testing | | | | | | in four to six hours if | | | | | | indicated.0.78 or | | | | | | greater ng/mL | | | | | | Consistent with | | | | | | myocardial injury. | | | | | | Clinical and laboratory | | | | | | correlation recommended. | | | | | | NOTE NEW REFERENCE | | | | | | RANGETesting performed | | | | | | at [facility];[address] [place] [address] | | | | | | [facility];[place] [address] | | | | + + + + + + + + | Specimen | + + | Blood specimen | | (specimen) | + + + +---------+ + + | Performing | Address | City/State/Zipcode | Phone Number | | Organization | | | | + +---------+ + + | EXTERNAL LAB | | | | + +---------+ + + Lipase (11/04/2018 1:12 AM PST) + + + + + + | Component | Value | Ref Range | Performed | Pathologist | | | | | At | Signature | + + + + + + | Lipase | 26Comment: NOTE NEW | 12 - 53 U/L | EXTERNAL | | | | REFERENCE RANGETesting | | LAB | | | | performed at [facility] | | | | | | [address];[place] | | | | | | [address] | | | | + + + + + + + + | Specimen | + + | Blood specimen | | (specimen) | + + + +---------+ + + | Performing | Address | City/State/Zipcode | Phone Number | | Organization | | | | + +---------+ + + | EXTERNAL LAB | | | | + +---------+ + + Lactic Acid (11/04/2018 1:12 AM PST) + + + + + + | Component | Value | Ref Range | Performed | Pathologist | | | | | At | Signature | + + + + + + | Lactate | 1.1Comment: Testing | 0.4 - 2.0 | EXTERNAL | | | | performed at [facility];[address] | mmol/L | LAB | | | | [address];[place] | | | | | | [address] | | | | + + + + + + + + | Specimen | + + | Blood specimen | | (specimen) | + + + +---------+ + + | Performing | Address | City/State/Zipcode | Phone Number | | Organization | | | | + +---------+ + + | EXTERNAL LAB | | | | + +---------+ + + CK Total (11/04/2018 1:12 AM PST) + + + + + + | Component | Value | Ref Range | Performed | Pathologist | | | | | At | Signature | + + + + + + | CK, Total | 32 (L)Comment: Testing | 55 - 400 U/L | EXTERNAL | | | | performed at [facility];[address] | | LAB | | | | [address];[place], [place] | | | | | | [address] | | | | + + + + + + + + | Specimen | + + | Blood specimen | | (specimen) | + + + +---------+ + + | Performing | Address | City/State/Zipcode | Phone Number | | Organization | | | | + +---------+ + + | EXTERNAL LAB | | | | + +---------+ + + Amylase (11/04/2018 1:12 AM PST) + + + + + + | Component | Value | Ref Range | Performed | Pathologist | | | | | At | Signature | + + + + + + | Amylase | 38Comment: Testing | 25 - 115 U/L | EXTERNAL | | | | performed at [facility];[address] | | LAB | | | | [address] [facility];[place], [place] | | | | | | [address] | | | | + + + [...] + +---------+ + + Basic Metabolic Panel (11/04/2018 1:12 AM PST) + + + + + + | Component | Value | Ref Range | Performed | Pathologist | | | | | At | Signature | + + + + + + | Na | 138 | 135 - 145 | EXTERNAL | | | | | mmol/L | LAB | | + + + + + + | K | 4.7 | 3.5 - 4.9 | EXTERNAL | | | | | mmol/L | LAB | | + + + + + + | Cl | 101 | 99 - 109 mmol/L | EXTERNAL | | | | | | LAB | | + + + + + + | CO2 | 26 | 23 - 32 mmol/L | EXTERNAL | | | | | | LAB | | + + + + + + | Anion Gap | 16 | 5 - 20 mmol/L | EXTERNAL | | | | | | LAB | | + + + + + + | Glucose, | 209 (H) | 65 - 99 mg/dL | EXTERNAL | | | Fasting | | | LAB | | + + + + + + | BUN | 24 | 8 - 25 mg/dL | EXTERNAL | | | | | | LAB | | + + + + + + | Creatinine | 1.24 | 0.70 - 1.30 | EXTERNAL | | | | | mg/dL | LAB | | + + + + + + | BUN/Creatin | 19 | | EXTERNAL | | | ine Ratio | | | LAB | | + + + + + + | Calcium | 8.5 | 8.5 - 10.5 | EXTERNAL | [...] | | | | | performed at [facility] | | | | | | [facility];[place], [place] | | | | | | [address] | | | | + + + + + + + + | Specimen | + + | Blood specimen | | (specimen) | + + + +---------+ + + | Performing | Address | City/State/Zipcode | Phone Number | | Organization | | | | + +---------+ + + | EXTERNAL LAB | | | | + +---------+ + + MRSA NAAT (11/04/2018 12:13 AM PST) + + | Specimen | + + | | + + + + + | Narrative | Performed At | + + + | SOURCE NARES(NOSE) MRSA | EXTERNAL LAB | | PCR NEGATIVE Testing | | | performed at [facility];[address] [place] [address];[place] [address] | | + + + + +---------+ + + | Performing | Address | City/State/Zipcode | Phone Number | | Organization | | | | + +---------+ + + | EXTERNAL LAB | | | | + +---------+ + + POC Glucose (11/03/2018 11:11 PM PST) + + + + + + | Component | Value | Ref Range | Performed | Pathologist | | | | | At | Signature | + + + + + + | Glucose, | 174 (H)Comment: Testing | 65 - 99 mg/dL | EXTERNAL | | | Fingerstick | performed at [facility];[address] | | LAB | | | | [address];[place] | | | | | | [address] | | | | + + + + + + + + | Specimen | + + | | + + + +---------+ + + | Performing | Address | City/State/Zipcode | Phone Number | | Organization | | | | + +---------+ + + | EXTERNAL LAB | | | | + +---------+ + + documented in this encounter Visit Diagnoses + + | Diagnosis | + + | Cardiogenic shock (HCC) Cardiogenic shock | + + documented in this encounter
--- OUTSIDE RECORDS SUMMARY | ~2019-09-04 | XMS | Encounter Summary ---
Demographics + + + | Address | [address] | | | [place] [address] | + + + | Home Phone | | + + + | Preferred Language | Unknown | + + + | Marital Status | Unknown | + + + | Amish Affiliation | Unknown | + + + | Race | Unknown | + + + | Ethnic Group | Unknown | + + + Author + + + | Author | [facility] | | | and [place] | + + + | Organization | [facility] | | | and [place] | + + + | Address | Unknown | + + + | Phone | Unavailable | + + + Support + + + + + | Name | Relationship | Address | Phone | + + + + + | Taurus Salinas | ECON | [place] | | | | | [address] | | + + + + + | Detailed Message | ECON | Unknown | | + + + + + Care Team Providers + +------+ + | Care Manager Camp Name | Role | Phone | + +------+ + PCP | Unavailable | + +------+ + Encounter Details +--------+ + + + + | Date | Type | Department | Care Team | Description | +--------+ + + + + | 12/05/ | Orders Only | [facility] [place] | [place], | Chronic obstructive | | 2016 | | PULMONARY [address] | Camille Wu MD | pulmonary disease, | | | | [place], | | unspecified COPD | | | | [place] [address] | | type (HCC) (Primary | | | | [phone] | | Dx) | +--------+ + + + + Social History + +-------+ +--------+------+ | Tobacco Use | Types | Packs/Day | Years | Date | | | | | Used | | + +-------+ +--------+------+ | Never Assessed | | | | | + +-------+ +--------+------+ + + + | Sex Assigned at [...] 2019 | Visit | | MD [address] | | | | | | [place] | | | | | | [address] | | | | | | | | +--------+---------+ + + + | 01/28/ | Office | Cardiology | Vannesa Martinez | | | 2019 | Visit | | SHIRA [address] | | | | | | [address] | | | | | | [place] [address] | | | | | | [phone] | | | | | | | | +--------+---------+ + + + documented as of this encounter Results PFT PULMONARY FUNCTION TESTING ORDERS Full PFT ([place] w/BD, lung volumes, diffusion)?: Yes (02/06/2016 7:12 PM PDT) + + + | Narrative | Performed At | + + + | Camille Washington MD 02/06/2016 19:12 PULMONARY | | | FUNCTION TESTING METHOD: Spirometry was obtained pre | | | administration of inhaled bronchodilator only. Lung volumes were | | | obtained by body plethysmography. Diffusion capacity was obtained by | | | single breath method and was not corrected for a measured | | | hemoglobin. ATS standards were met except for on plethysmography, | | | during which the patient had difficulty panting, so results should | | | be interpreted with caution. SPIROMETRY: FVC was normal at 4.37 | | | L or 87% of predicted. FEV1 was normal at 3.16 L or 81% of | | | predicted. FEV1/FVC ratio was normal at 72%. LUNG VOLUMES: | | | Total lung capacity was elevated at 13.71 L or 196% of predicted. | | | Residual volume was markedly elevated at 9.34 L or 449% of | | | predicted. RV/TLC ratio was elevated at 68% or 226% of predicted. | | | DIFFUSION CAPACITY: Diffusion capacity was normal at 33.2 mL/mmHg | | | per minute or 92% of predicted and was not corrected for a measured | | | hemoglobin. IMPRESSION: Spirometry is normal. Lung volume testing | | | is consistent with obstructive physiology. Diffusion capacity is | | | normal and is not corrected for measured hemoglobin. | | | Electronically signed by: Camille Washington MD 02/06/2016 19:08 | | | [facility] CC: Daisy Stratton, | | | PA-C | | + + + documented in this encounter Visit Diagnoses + + | Diagnosis | + + | Chronic obstructive pulmonary disease, unspecified COPD type (HCC) - Primary | + + documented in this encounter"
--- OUTSIDE RECORDS SUMMARY | ~2019-09-04 | XMS | Encounter Summary ---
Demographics + + + | Address | [address] | | | [place] [address] | + + + | Home Phone | | + + + | Preferred Language | Unknown | + + + | Marital Status | Unknown | + + + | Tenriism Affiliation | Unknown | + + + | Race | Unknown | + + + | Ethnic Group | Unknown | + + + Author + + + | Author | [facility] | | | and [place] | + + + | Organization | [facility] | | | and [place] | + + + | Address | Unknown | + + + | Phone | Unavailable | + + + Support + + + + + | Name | Relationship | Address | Phone | + + + + + | Taurus Salinas | ECON | [place] | | | | | [address] | | + + + + + | Detailed Message | ECON | Unknown | | + + + + + Care Team Providers + +------+ + | Care Residence Manager Name | Role | Phone | + +------+ + | Kenny Hernandez DO | PCP | | + +------+ + Reason for Visit + + + | Reason | Comments | + + + | Cerebrovascular | | | Accident | | + + + Evaluate & Treat (Routine) +--------+ + + + + + | Status | Reason | Specialty | Diagnoses / | Referred By | Referred To | | | | | Procedures | Contact | Contact | +--------+ + + + + + | Closed | Specialty | Neurology | Diagnoses | Buck, | Shawna, | | | Services | | Cerebral | Daisy | Gris Jules, | | | Required | | infarction, | Dedra | [address] | | | | | unspecified | PA[address]C [id number] | [address], | | | | | ([facility]) | ISAI Parmar | [address] | | | | | Procedures | Ave | [place], [place] | | | | | Evaluate and | [place], | [address] Phone: | | | | | Treat | [place] | [phone] | | | | | | [address] | Fax: | | | | | | Phone: | [phone] | | | | | | [phone] | | | | | | | Fax: | | | | | | | [phone] | | +--------+ + + + + + Encounter Details +--------+---------+ + + + | Date | Type | Department | Care Team | Description | +--------+---------+ + + + | 11/09/ | Office | [facility] [facility] | Gris Matos | Hiccups (Primary | | 2018 | Visit | [facility] | MD [address] | Dx); Cerebrovascular | | | | CLINIC [address] | FELICITA [facility]Z | accident (CVA) due | | | | DR SAM [address]ERNÁNDEZ, | [place] [address] | to thrombosis of | | | | [place] [address] | [phone] | cerebral artery | | | | [phone] | | (HCC) | +--------+---------+ + + + Social History [...] + + + | Blood Pressure | 140/98 | 11/09/2017 10:37 AM | | | | | PST | | + + + + + | Pulse | 88 | 11/09/2017 10:37 AM | | | | | PST | | + + + + + | Temperature | - | - | | + + + + + | Respiratory Rate | 18 | 11/09/2017 10:37 AM | | | | | PST | | + + + + + | Oxygen Saturation | 93% | 11/09/2017 10:37 AM | | | | | PST | | + + + + + | Inhaled Oxygen | - | - | | | Concentration | | | | + + + + + | Weight | 95 kg (209 lb 6.4 | 11/09/2017 10:37 AM | | | | oz) | PST | | + + + + + | Height | 175.3 cm (5' 9") | 11/09/2017 10:37 AM | | | | | PST | | + + + + + | Body Mass Index | 30.92 | 11/09/2017 10:37 AM | | | | | PST | | + + + + + documented in this encounter Patient Instructions Patient Instructions Gris Matos MD - 11/09/2017 10:30 AM PSTYou have the followin g tests/procedures ordered. At [facility] Brain MRI with and without contrast Carotid ultrasound Blood work for BUN/creatinine Medication Instructions: Chlorpromazine 25 mg 3 times a day *Any questions, please call Dr. Matos's office at Patient advised of their right to have diagnostic testing, health care treatment, and/or se rvices at a facility other than [facility]. documented in this encounter Progress Notes Gris Matos MD - 11/09/2017 10:30 AM PST Patient: Taurus Domínguez Medical Record: [id number] Date of Services: 11/09/2017 Referring Doctor: Kenny Hernandez Chief Complaint Patient presents with Cerebrovascular Accident HISTORY OF PRESENT ILLNESS: The patient is a 52-year-old male who is referred to me because of MRI findings revealing t he presence of infarcts as well as white matter disease. The patient's history is significant for hiccups. This started 2 years ago. He has underg one a GI workup and nothing was found to cause his symptoms. Because of this, he underwent an MRI of the brain without contrast earlier this year. This revealed the presence of infarcts in the right cerebellum and left epi as well as abnormal confluent signal in the periventricular white matter and barbour radiate up. Differential i ncluded ischemia versus them disease. The patient does have a history of hypertension that is poorly controlled as well as a TIA. Right now, his main complaint is that his hiccups occur every day. He typically has to sti ck a finger down his throat to stop them temporarily. Interestingly, he tells me that he has been told that he stops breathing during the night. REVIEW OF SYSTEMS: General: No fever HEENT: Positive for tinnitus Cardiovascular: Positive for chest pain or shortness of breath on exertion Respiratory: Positive for cough Gastrointestinal: Positive for vomiting Musculoskeletal: Positive for hand pain Skin: No rash Hematologic: No bleeding Neurologic: No headaches Psychiatric: No depression Genitourinary: Positive for frequent urination PAST MEDICAL HISTORY: Past Medical History: Diagnosis Date Alcohol dependence (HCC) BPH (benign prostatic hypertrophy) Carotid artery disease (HCC) 10/2010 COPD (chronic obstructive pulmonary disease) (HCC) Elevated liver enzymes Epidermal inclusion cyst Essential hypertension Fatty liver Mild concentric left ventricular hypertrophy (LVH) Prostatitis Smoking Thoracic aortic aneurysm (HCC) 2010 4.5 cm in 2010 TIA (transient ischemic attack) 10/2010 PAST SURGICAL HISTORY: Past Surgical History: Procedure Laterality Date COLONOSCOPY N/A 05/25/2017 Procedure: COLONOSCOPY; Surgeon: Glen Dahl MD; Location: [facility] UPPER GASTROINTESTINAL ENDOSCOPY N/A 05/25/2017 Procedure: EGD; Surgeon: Glen Dahl MD; Location: [facility] WOUND REPAIR 1985 and clean out MEDICATIONS: Current Outpatient Prescriptions Medication Sig Dispense Refill albuterol-ipratropium (DUONEB) 2.5-0.5 mg/3 mL SOLN Take 3 mLs by nebulization. amLODIPine (NORVASC) 5 mg tablet Take 5 mg by mouth Daily. carvedilol (COREG) 12.5 mg tablet Take 12.5 mg by mouth. chlorproMAZINE (THORAZINE) 25 mg tablet Take 1 tablet by mouth 3 times daily. 90 tablet 2 hydrALAZINE (APRESOLINE) 25 mg tablet Take 25 mg by mouth. losartan (COZAAR) 50 mg tablet Take 50 mg by mouth Daily. No current facility-administered medications for this visit. 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, no h/o IVDA Sexual activity: Not on file Other Topics Concern Not on file Social History Narrative Lives: [place] With: Karrie Grew up: [place] Has previously lived in: [place] Exposure to toxic chemicals: No Exposure to asbestos: No Exposure to tuberculosis: No Has had a PPD or Quantiferon before: None Has pets at home: Karrie has a dog Has ever owned birds: Has lived with a cockateil in his late 30s Other animal exposures: Dogs and snake Hobbies: Fishing and walking the dog Family History Problem Relation Age of Onset Hypertension Father Heart surgery Father PHYSICAL EXAMINATION: BP (!) 140/98 | Pulse 88 | Resp 18 | Ht 1.753 m (5' 9") | Wt 95 kg (209 lb 6.4 oz) | S pO2 93% | BMI 30.92 kg/m Neck is supple. Lungs are clear. Heart sounds are within normal limits. Abdomen is soft and non-tender, There is no extremity cyanosis or edema. NEUROLOGIC EXAMINATION: MENTAL STATUS: The patient is awake, alert, and oriented to time, place, and person. Spee ch is fluent. Memory, attention, comprehension, and general fund of knowledge are intact. CRANIAL NERVES: Funduscopy revealed distinct disc margins. Pupils are 3-4 mm, equal and reactive to light and accommodation. Extraocular muscle movements are intact. There are no v isual field cuts. There is no nystagmus. There is no facial asymmetry. Facial sensation is intact. Palate elevates symmetrically. Strength in the trapezius and sternocleidomastoid muscles is normal. Tongue is midline on protrusion. MOTOR EXAMINATION: Strength is 5/5 throughout. SENSORY EXAMINATION: Intact to light touch and pinprick. DEEP TENDON REFLEXES: 1+ PLANTAR RESPONSES: Downgoing bilaterally GAIT: Gait and station are normal. CEREBELLAR EXAMINATION: There is no dysmetria on [id number] test. IMPRESSION: 1. Lacunar infarcts on brain MRI 2. White matter disease, likely ischemic in light of the presence of hypertension 3. Hiccups of unclear etiology 4. Possible obstructive sleep apnea PLAN AND RECOMMENDATIONS: I went over the patient's brain MRI results with him in detail. The white matter changes a re ischemic in nature. However, I am ordering a brain MRI with and without contrast to conf irm this. He will need to BUN and creatinine level prior to to the MRI. I am also ordering a carotid ultrasound. The patient tells me that he has not had one for several years. He admits that he does not take aspirin regularly. He was told to do so. For his hiccups, he is being started on a trial of chlorpromazine 25 mg 3 times a day. I a dvised him to start at night and increase his dose slowly. He was advised to discuss sleep apnea with his PCP. He refers to be worked up in [place] . I will continue to follow him. He is to come back to neurology clinic in 4 months. More than 50% of this 45 minute visit was spent on discussing the results of his MRI, the r ationale for the testing ordered in his plan of care. Thank you for the opportunity to participate in the care of this patient. Gris Matos MD11/09/201711:10 Electronically signed This note was transcribed using voice recognition software. There may be speech recognitio n errors which escaped detection during review. documented in thi s encounter Plan of Treatment +--------+---------+ + + + | Date | Type | Specialty | Care Team | Description | +--------+---------+ + + + | 09/30/ | Office | Cardiology | Samm Malik, | | | 2019 | Visit | | MD [address] | | | | | | [facility] | | | | | | [address] | | | | | | | | +--------+---------+ + + + | 01/28/ | Office | Cardiology | Vannesa Martinez | | | 2020 | Visit | | [address]IRA [address] | | | | | | [address] | | | | | | [place] [address] | | | | | | [phone] | | | | | | | | +--------+---------+ + + + documented as of this encounter Visit Diagnoses + + | Diagnosis | + + | Hiccups - Primary Hiccough | + + | Cerebrovascular accident (CVA) due to thrombosis of cerebral artery (HCC) | + + documented in this encounter
--- OUTSIDE RECORDS SUMMARY | ~2019-09-04 | XMS | Encounter Summary ---
Demographics + + + | Address | [address] | | | [place] [address] | + + + | Home Phone | | + + + | Preferred Language | Unknown | + + + | Marital Status | Unknown | + + + | Christianity Affiliation | Unknown | + + + | Race | Unknown | + + + | Ethnic Group | Unknown | + + + Author + + + | Author | [facility] | | | and [place] | + + + | Organization | [facility] | | | and [place] | + + + | Address | Unknown | + + + | Phone | Unavailable | + + + Support + + + + + | Name | Relationship | Address | Phone | + + + + + | Taurus Salinas | ECON | [place] | | | | | [address] | | + + + + + | Detailed Message | ECON | Unknown | | + + + + + Care Team Providers + +------+ + | Care Radio Personality Name | Role | Phone | + +------+ + | Kenny Hernandez DO | PCP | | + +------+ + Reason for Visit + + + | Reason | Comments | + + + | Referral | [facility] Scheduling | + + + Encounter Details +--------+ + + + + | Date | Type | Department | Care Team | Description | +--------+ + + + + | 05/06/ | Telephone | [facility] | Danielle Meredith, | Referral (Malik | | 2019 | | CARDIOLOGY TUR[facility] | Associate Professor Of Pathology | Scheduling) | | | | [address] | | | | | | [place], [place] | | | | | | [address] | | | | | | [phone] | | | +--------+ + + + [...] [place] | | | | | | [address] | | | | | | | | +--------+---------+ + + + | 01/28/ | Office | Cardiology | Vannesa Martinez | | | 2019 | Visit | | SHIRA [address] | | | | | | [address] | | | | | | [place] [address] | | | | | | [phone] | | | | | | | | +--------+---------+ + + + documented as of this encounter Visit Diagnoses Not on filedocumented in this encounter"
--- OUTSIDE RECORDS SUMMARY | ~2019-09-04 | XMS | Encounter Summary ---
Demographics + + + | Address | [address] | | | [place] [address] | + + + | Home Phone | | + + + | Preferred Language | Unknown | + + + | Marital Status | Unknown | + + + | Alevism Affiliation | Unknown | + + + | Race | Unknown | + + + | Ethnic Group | Unknown | + + + Author + + + | Author | [facility] | | | and [place] | + + + | Organization | [facility] | | | and [place] | + + + | Address | Unknown | + + + | Phone | Unavailable | + + + Support + + + + + | Name | Relationship | Address | Phone | + + + + + | Taurus Salinas | ECON | [place] | | | | | [phone] | | + + + + + | Detailed Message | ECON | Unknown | | + + + + + Care Team Providers + +------+ + | Care Senior Linux Unix Engineer Name | Role | Phone | + +------+ + | Kenny Hernandez DO | PCP | | + +------+ + Reason for Referral Diagnostic/Screening (Routine) +--------+ + + + + + | Status | Reason | Specialty | Diagnoses / | Referred By | Referred To | | | | | Procedures | Contact | Contact | +--------+ + + + + + | Closed | Specialty | | Diagnoses | | OP ST | | | Services | | Elevated | [facility], | JOSE RAFAEL | | | Required | | LFTs | [place], | HOSPITAL | | | | | Alcohol | RN SCHOOL [address] | [address] | | | | | abuse | [place], [address] | [address] | | | | | Hiccups | [address] | [place], [place] | | | | | Gastroesopha | [facility], [place] | [address] | | | | | geal reflux | [phone] | Phone: | | | | | disease, | Phone: | [phone] | | | | | esophagitis | [phone] | Fax: | | | | | presence not | Fax: | [phone] | | | | | specified | [phone] | | | | | | History of | | | | | | | methamphetam | | | | | | | ine abuse | | | | | | | (HCC) | | | | | | | Dysphagia, | | | | | | | unspecified | | | | | | | type | | | | | | | Procedures | | | | | | | US, | | | | | | | ABDOM,B-SCAN | | | | | | | &/OR REAL | | | | | | | TIME,COMPLET | | | | | | | E | | | +--------+ + + + + + Reason for Visit +--------+ + | Reason | Comments | +--------+ + | Other | hiccups | +--------+ + Evaluate & Treat (Routine) +--------+--------+ + + + + | Status | Reason | Specialty | Diagnoses / | Referred By | Referred To | | | | | Procedures | Contact | Contact | +--------+--------+ + + + + | Closed | | Gastroenterol | Diagnoses | David, | Viktor, | | | | ogy | Fatty | Kenny Marie, | Clem Marie MD | | | | | (change of) | DO [address] | [address] [place], | | | | | liver, not | [address] | [address] | | | | | elsewhere | [place] | [place], | | | | | classified | [address] | [place] [address] | | | | | Procedures | Phone: | Phone: | | | | | Office Visit | [phone] | [phone] | | | | | | Fax: | Fax: | | | | | | [phone] | [phone] | +--------+--------+ + + + + Encounter Details +--------+---------+ + + + | Date | Type | Department | Care Team | Description | +--------+---------+ + + + | 05/03/ | Office | [facility] | [facility], | Elevated LFTs | | 2017 | Visit | GASTROENTEROLOGY | WILLEM Senior [address] | (Primary Dx); | | | | [address] | [place], [address] | Alcohol abuse; | | | | [address] [place], [place] | [place], [place] | Dysphagia, | | | | [address] | [address] | unspecified type; | | | | [phone] | | Hiccups; | | | | | | Gastroesophageal | | | | | | reflux disease, | | | | | | esophagitis presence | | | | | | not specified; | | | | | | History of | | | | | | methamphetamine | | | | | | abuse | +--------+---------+ + + + Social History [...] + | Blood Pressure | 120/78 | 05/03/2017 9:46 AM | | | | | PDT | | + + + + + | Pulse | 82 | 05/03/2017 9:46 AM | | | | | PDT | | + + + + + | Temperature | 36.6 C (97.9 F) | 05/03/2017 9:46 AM | | | | | PDT | | + + + + + | Respiratory Rate | 16 | 05/03/2017 9:46 AM | | | | | PDT | | + + + + + | Oxygen Saturation | 92% | 05/03/2017 9:46 AM | | | | | PDT | | + + + + + | Inhaled Oxygen | - | - | | | Concentration | | | | + + + + + | Weight | 94.8 kg (209 lb) | 05/03/2017 9:46 AM | | | | | PDT | | + + + + + | Height | - | - | | + + + + + | Body Mass Index | 30.86 | 06/01/2016 1:42 PM | | | | | PDT | | + + + + + documented in this encounter Patient Instructions Patient Instructions Nadeen MiguelWILLEM - 05/03/2017 10:00 AM PDT Alcohol Abuse Alcoholic drinks are harmful when you have too many of them. There is no set number of drin ks that defines too much. Drinking that disrupts your life or your health is called alcohol abuse. Alcohol abuse can hurt your relationships with others. You may lose friends, a spouse , or even your job. You may be abusing alcohol if any of the following are true for you: Duties at home or with childcare worker suffer because of drinking. Duties at work or in school suffer because of drinking. You have missed work or school because of drinking. You use alcohol while driving or operating machinery. You have legal problems such as arrests due to drinking. You keep drinking even though it causes serious problems in your life. Health effects Alcohol abuse causes health problems.Sometimes this can happen after only drinking a l ittle." There is no set number of drinks or amount of alcohol that defines too much.The mo re you drink at one time, and the more often you drink determine both the short-term and kayode g-term health effects.It affects all parts of your body and your health, including your: Brain. Alcohol is a central nervous system depressant.It can damage parts of the brain that affect your balance, memory, thinking, and emotions. It can cause memory loss, blackou ts, depression, agitation, sleep cycle changes, and seizures. These changes may or may not b e reversible. Heart and vascular system. Alcohol affects multiple areas. It can damage heart muscle ca using cardiomyopathy, which is a weakening and stretching of the heart muscle. This can lead to trouble breathing, an irregular heartbeat, atrial fibrillation, leg swelling, and heart failure. Alcohol use makes the blood vessels stiffen causing high blood pressure. All of the se problems increase your risk of having heart attacks or strokes. Liver. Alcohol causes fat to build up in the liver, affecting its normal function. This increases the risk for hepatitis, leading to abdominal pain, appetite loss, jaundice, bleedi ng problems, liver fibrosis, and cirrhosis. This, in turn, can affect your ability to fight off infections, and can cause diabetes. The liver changes prevent it from removing toxins in your blood that can cause encephalopathy, which may show with confusion, altered level of c onsciousness, personality changes, memory loss, seizures, coma, and . Pancreas. Alcohol can cause inflammation of the pancreas, or pancreatitis. This can caus e abdominal pain, fever, and diabetes. Immune system. Alcohol weakens your immune system in a number of ways. It suppresses you r immune system making it harder to fight infections and colds. It also increases the chance of getting pneumonia and tuberculosis. Cancer. Alcohol is a risk factor for developing cancer of the mouth, esophagus, pharynx, larynx, liver, and breast. Sexual function.Alcohol can lead to sexual problems. Home care The following guidelines will help you deal with alcohol abuse: Admit you have a problem with alcohol. Ask for help from your healthcare provider and trusted family members or close friends. Get help from people trained in dealing with alcohol abuse. This may be individual couns eling or group therapy, or it may be a supervised alcohol treatment program. Join a self-help group for alcohol abuse such as Alcoholics Anonymous (AA). Avoid people who abuse alcohol or tempt you to drink. Follow-up care Follow up as advised by the healthcare provider, or as advised. Contact these groups to get help: Alcoholics Anonymous (AA):Go to www.aa.org or check the phone book for meetings near y ou. National Alcohol and Substance Abuse Information Center (NASAIC): 169.467.7391 www.News in Shorts [employer]Ice[employer]ope.[employer] National Pecan Gap on Alcoholism and Drug Dependence (NCADD): 971-YDU-FNJL (674-5918) www. [employer].org Call 911 Call 911 if any of these occur: Trouble breathing or slow irregular breathing Chest pain Sudden weakness on one side of your body or sudden trouble speaking Heavy bleeding or vomiting blood Very drowsy or trouble awakening Fainting or loss of consciousness Rapid heart rate Seizure When to seek medical care Call your healthcare provider right away if any of these occur: Confusion Hallucinations (seeing, hearing, or feeling things that aren t there) Pain in your upper abdomen that gets worse Repeated vomiting or black or tarry stools Severe shakiness Date Last Reviewed: 02/02/201619991963-0392 [employer]. [address] [place] [address], [place] [address]. All righ ts reserved. This information is not intended as a substitute for professional medical care. Always follow your healthcare professional's instructions. Alcohol Withdrawal: What to Expect What is withdrawal? Withdrawal is what happens to your body if you re a heavy drinker and stop drinking alcoh ol. Withdrawal symptoms can be mild to severe. How severe they are depends on the amount of alcohol you drink, how long you ve been abusing alcohol, and whether you have organ damage . Withdrawal can start 6 to 24 hours after your last drink and usually eases after a few days .Although withdrawal is uncomfortable and unpleasant, most people don t have serious or life-threatening problems. Long-standing heavy drinkers however, can have severe withdrawal symptoms. This can lead to seizures and may be fatal if not aggressively treated. These peop le need to be under medical supervision during withdrawal. What symptoms will I have? Withdrawal symptoms can start if you stop drinking or cut back a lot on your drinking. Most people have mild symptoms. Mild symptoms may include: Trouble sleeping Vivid dreams Irritability Anxiety Mild stomach problems Tremors or the shakes Sweating Heart palpitations Increased blood pressure More severe symptoms may include: Fever Hallucinations Delusions Confusion Agitation Seizures Can I do this at home? You may be able to stay at home while you go through withdrawal, but you need professional input before making this decision. The first step is to work closely with an addiction speci alist who has a medical background or with your private doctor. Based on your drinking histo ry and previous withdrawal symptoms, medical office technician may be able to predict how severe your withdrawal symptoms will be. In some cases, if you are predicted to have mild withdrawal, you may be able stay at home. But you ll need a caregiver to help you and daily visits and telephone calls from a health care provider such as a drug and alcohol nurse. Your doctor may prescribe a tranquilizing type of medicine progressively smaller daily dose s to help keep withdrawal symptoms in check. Your doctor may give you other medicines to hel p with headaches or nausea. What happens if I am in a hospital or rehabilitation center? You may need to stay in the hospital or at the treatment center if your doctor thinks you m ay have more severe withdrawal symptoms or you have another illness that can complicate with drawal.Medical staff can more closely watch you when you are an inpatient and tranquilizin g medicines can be given in higher and more frequent dosing. Date Last Reviewed: 10/04/201619995483-0793 [employer]. [address] [place] [address]. All righ ts reserved. This information is not intended as a substitute for professional medical care. Always follow your healthcare professional's instructions. Understanding Alcoholism Alcoholism is a disease in which a person is dependent on a drug alcohol. The disease can harm the person s physical and mental health. It can also affect his or her behavior. Alc oholism is not a character flaw. It is not a moral failure. It is a disease that worsens ove r time. Untreated, it can lead to brain damage and . Recovery is possible if drinking i s stopped. Effects of alcoholism Behavioral effects Drinking is the main behavior of people with alcoholism. They develop a private relationshi p with drinking. They guard it. They give it their time, money, and attention. This may happ en at the expense of family and friends. They lie for it and think about it all the time. Th ey may risk losing their families for it. They may risk their lives for it. Despite the harm it causes, they can t control the drinking. Health risks People with alcoholism are at high risk for health problems. These include heart disease an d cancer. They also include mental illness. People with the disease may not heal from illnes s normally. Unless drinking is stopped, it can cause . may result from organ fail ure, cancer, or common viruses. may also result from accidents or suicide. Physical effects Alcohol can be like a poison to the body. It kills cells. Heavy drinking over a long time c an greatly harm the body s organs. These can include the brain, heart, liver, and pancreas . Chronic drinking also harms the digestive tract. It harms the immune system as well. This leaves the body vulnerable to serious disease. Psychological effects Alcoholism can lead to a type of distorted thinking known as alcohol-think. One of th e most common forms of this is denial. This is when the person denies that drinking is a pro blem. He or she may deny that any of the problems in his or her life are caused by drinking. Date Last Reviewed: 02/02/201619998327-0110 [employer]. [address] [place] [address], [place] [address]. All righ ts reserved. This information is not intended as a substitute for professional medical care. Always follow your healthcare professional's instructions. documented in this encounter [employer] Notes Nadeen Miguel ARNP - 05/03/2017 10:00 AM PDTFormatting of this note might be differe nt from the original. PATIENT NAME: Taurus Domínguez : 1965: AGE: 51 y.o. REFERRED BY: Kenny Hernandez PRIMARY CARE: Kenny Hernandez Subjective: CHIEF COMPLAINT: Taurus Domínguez is a 51 y.o. male referred by Kenny Hernandez for evaluation and treatment of hiccups and alcohol abuse. HISTORY OF PRESENT ILLNESS: Complains of hiccups that come most days and lasts most days. He states he will have to sti ck his finger down his throat to relieve some of the air and food can come up too. Reports a sour taste on occasion. Eating will cause, typically. He was given both ranitidine and omep razole for 1 month without relief of hiccups. Yesterday he saw some red emesis. He does not remember eating anything red. Hiccups do not always start after drinking. He reports drinking about a fifth of hard alcohol daily. States that he is thought about q uitting and thinks about quitting every day. He can have issues with food or liquids do not go down esophagus. Water seem to be worse. N o trouble with milk. Had heartburn yesterday. This is the first time in years. Oranges or cucumbers worsen. He a voids these foods. He was also seen by pulmonology at [facility]. He was given compazine every 6 hours. He states he took this for 1 month, but does not remember how often he was taken. Does not remember being tested for HCV. Denies ascites, jaundice, hematemesis, peripheral edema, sleep changes, or confusion. Dr [place] in pulmonology ordered UGI xray 03/2016 which was positive for moderate reflux . MEDICAL, SURGICAL, AND PERSONAL HISTORY: Vitals: 05/03/17 0946 BP: 120/78 Pulse: 82 Resp: 16 Temp: 36.6 C (97.9 F) PainSc: 0 - No pain No Known Allergies Past Medical History: Diagnosis Date Alcohol dependence (HCC) BPH (benign prostatic hypertrophy) Carotid artery disease (HCC) 10/2010 COPD (chronic obstructive pulmonary disease) (HCC) Elevated liver enzymes Epidermal inclusion cyst Essential hypertension Fatty liver Mild concentric left ventricular hypertrophy (LVH) Prostatitis Smoking Thoracic aortic aneurysm (HCC) 2010 4.5 cm in 2010 TIA (transient ischemic attack) 10/2010 Past Surgical History: Procedure Laterality Date WOUND REPAIR 1984 and clean out Family History Problem Relation Age of Onset Hypertension Father Heart surgery Father Social History Social History Marital status: Unknown Spouse name: N/A Number of children: N/A Years of education: N/A 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 Social History Main Topics Smoking status: Former Smoker Packs/day: 1.00 Years: 33.00 Types: Cigarettes Start date: 09/03/1978 Quit date: 10/04/2010 Smokeless tobacco: Former User Alcohol use 21.0 - 42.0 oz/week 35 - 70 Cans of beer per week Comment: 5-10 drinks daily, can drink a 5th a day easily Drug use: Types: Marijuana, Methamphetamines Comment: 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, no h/o IVDA Sexual activity: Not on file Other Topics Concern Not on file Social History Narrative Lives: [place] With: Karrie Grew up[place] previously lived in[place] Exposure to toxic chemicals: No Exposure to asbestos: No Exposure to tuberculosis: No Has had a PPD or Quantiferon before: None Has pets at home: Karrie has a dog Has ever owned birds: Has lived with a cockateil in his late 30s Other animal exposures: Dogs and snake Hobbies: Fishing and walking the dog Review Of Systems Constitutional: Denies any fevers, chills, or unintentional weight loss. Eye: Denies using glaucoma eye drops. Denies dry, burning, painful eyes Respiratory: Complains of shortness of breath. Denies constant coughing or wheezing. Gastrointestinal: Complains of constipation, diarrhea, nausea, vomiting, hematemesis, dysph agia, heartburn, and abdominal pain. Denies bloody or black stools or hemorrhoids. Skin: Denies rashes Neurological: Complains of numbness and tingling in muscle weakness. Denies memory difficu lties, paralysis, seizures, or frequent bothersome headaches. ENT: Denies hearing loss, hearing aids, hearing ringing or buzzing in ears, constantly runn y nose, nasal obstruction, hayfever, dentures, or hoarseness. Cardiovascular: Complains of chest pain and bothersome ankle swelling. Denies heart palpit ations. Genitourinary: Complains of painful urination, and frequent nocturnal urination. Denies ur ine incontinence, bloody urine, or impotence. Musculoskeletal: Complains of painful joints, swollen joints and painful back Psychiatric: Denies depression and anxiety Endocrine: Denies enlarged thyroid Hematology/ Lymph: Denies anemia or enlarged lymph glands. Objective: PHYSICAL EXAM: General: well developed, well nourished, in no acute distress. Head: normocephalic and atraumatic Eyes: Sclera clear Mouth: MMM Lungs: Clear to auscultate bilaterally and throughout Heart: regular rate and rhythm Abdomen: Soft, non tender, non distended, bowel tones positive times 4 quadrants, negative Cm y's sign, negative rebound tenderness, no guarding, no hepatosplenomegaly palpated. Rectal: Will be done prior to procedure Msk: symmetrical with no deformity, with normal posture and gait, normal strength. Extremities: no clubbing, cyanosis, edema, or deformity noted Neurologic: no focal deficits, cranial nerves II-XII grossly intact Skin: intact without lesions or rashes. Psych: alert and cooperative; normal mood and affect; normal attention span and concentration. Abstract on 04/24/2017 Component Date Value Ref Range Status Creatinine, External 02/23/2017 0.81 0.7 - 1.33 Final eGFR, External 02/23/2017 >60 60 - 99,999 Final LDL Cholesterol, External 02/23/2017 119* 0 - 100 Final Cholesterol, Total, External 02/23/2017 216* 0 - 200 mg/dl Final HDL Cholesterol, External 02/23/2017 74.5 40 - 99,999 mg/dl Final Triglycerides, External 02/23/2017 226* 30 - 150 Final TSH, External 02/23/2017 0.409 0.27 - 4.2 Final WBC, External 02/23/2017 6.7 4.5 - 11 Final HGB, External 02/23/2017 16.6 13.5 - 18 Final HCT, External 02/23/2017 48.5 41 - 50 Final PLT, External 02/23/2017 288 140 - 440 Final Neutrophils %, External 02/23/2017 68.6 39 - 80 Final Lymphocytes %, External 02/23/2017 23.6* 24 - 44 Final Monocytes %, External 02/23/2017 5.1 0 - 12 Final Eosinophils %, External 02/23/2017 1 0 - 6 Final RBC, External 02/23/2017 4.88 4.3 - 5.7 Final MCV, External 02/23/2017 99 81 - 99 Final RDW, External 02/23/2017 14.8 10.5 - 15 Final Sodium, External 02/23/2017 139 132 - 143 Final Potassium, External 02/23/2017 3.6 3.6 - 5.1 Final Chloride, External 02/23/2017 97 95 - 112 Final Carbon Dioxide, External 02/23/2017 22 19 - 31 Final Calcium, External 02/23/2017 9.6 8.4 - 10.2 Final Protein, Total, External 02/23/2017 6.5 6 - 8 Final Albumin, External 02/23/2017 4.2 3.5 - 5 Final Bilirubin, Total, External 02/23/2017 1.2 0 - 1.2 Final ALP, External 02/23/2017 58 31 - 120 Final AST, External 02/23/2017 122* 13 - 39 Final ALT, External 02/23/2017 182* 7 - 52 Final PSA, External 02/23/2017 2.2 0 - 4 Final Glucose, External 02/23/2017 69* 70 - 100 Final BUN, External 02/23/2017 20 6 - 23 Final VLDL Cholesterol Niall 02/23/2017 23 4 - 40 Final Chol/HDL Ratio 02/23/2017 2.9 0.0 - 5.0 Final Non HDL Chol. (LDL+VLDL) 02/23/2017 142* 0 - 130 Final ANION GAP 02/23/2017 24* 7 - 21 mmol/L Final BUN/Creatinine Ratio 02/23/2017 24.7 6 - 28.6 Final Globulin 02/23/2017 2.3 1.8 - 3.5 Final Albumin/Globulin Ratio 02/23/2017 1.8 1.1 - 2.4 Final MCH 02/23/2017 34.0* 26.0 - 33.0 pg Final MCHC 02/23/2017 34.0 31.0 - 37.0 % Final Basophils % 02/23/2017 1.5 0 - 2 Final UA Blood, External 02/24/2017 Negative Final UA Glucose, External 02/24/2017 Normal Final UA Ketones, External 02/24/2017 Negative Final UA Ph, External 02/24/2017 6 5 - 9 Final UA Proteins, External 02/24/2017 Negative Final UA RBC, External 02/24/2017 0 0 - 4 Final UA Specific [place], External 02/24/2017 1.009 1.005 - 1.03 Final UA Leukocyte Esterase, External 02/24/2017 Negative Final COLLECTION METHOD 1 02/24/2017 Clean Catch Final Color 02/24/2017 Yellow Final CLARITY 02/24/2017 Clear Final BILIRUBIN UA 02/24/2017 Negative Negative Final NITRITE UA 02/24/2017 Negative Negative Final UROBILINOGEN UA 02/24/2017 Normal < 0.2 mg/dL, 1.0 mg/dL, 4.0 mg/dL, Normal, 1.0 E.U./ dL, 0.2 E.U./dL, 0.2 mg/dL, Negative, 1 mg/dL, <2.0 mg/dL Final CASTS 02/24/2017 Negative Final WBC, UA 02/24/2017 0 0 - 4 Final CRYSTAL UA 02/24/2017 Negative Final BACTERIA UA 02/24/2017 Negative Negative /HPF Final Assessment: 1. Elevated LFTs Alpha Fetoprotein, Tumor Marker Comprehensive Metabolic Panel Protime INR Hepatitis A IGG.IGM Hepatitis B Core Ab, IgM Hepatitis B Surface Ag Hepatitis C Ab CBC with Differential Hepatitis B Surface Ab US Abdomen Limited Referral ABDOMINAL US 2. Alcohol abuse Alpha Fetoprotein, Tumor Marker Comprehensive Metabolic Panel Protime INR Hepatitis A IGG.IGM Hepatitis B Core Ab, IgM Hepatitis B Surface Ag Hepatitis C Ab CBC with Differential Hepatitis B Surface Ab US Abdomen Limited Referral ABDOMINAL US 3. Dysphagia, unspecified type Alpha Fetoprotein, Tumor Marker Comprehensive Metabolic Panel Protime INR Hepatitis A IGG.IGM Hepatitis B Core Ab, IgM Hepatitis B Surface Ag Hepatitis C Ab CBC with Differential Hepatitis B Surface Ab US Abdomen Limited Referral ABDOMINAL US 4. Hiccups Alpha Fetoprotein, Tumor Marker Comprehensive Metabolic Panel Protime INR Hepatitis A IGG.IGM Hepatitis B Core Ab, IgM Hepatitis B Surface Ag Hepatitis C Ab CBC with Differential Hepatitis B Surface Ab US Abdomen Limited Referral ABDOMINAL US 5. Gastroesophageal reflux disease, esophagitis presence not specified Alpha Fetoprotein, Tumor Marker Comprehensive Metabolic Panel Protime INR Hepatitis A IGG.IGM Hepatitis B Core Ab, IgM Hepatitis B Surface Ag Hepatitis C Ab CBC with Differential Hepatitis B Surface Ab US Abdomen Limited Referral ABDOMINAL US 6. History of methamphetamine abuse Alpha Fetoprotein, Tumor Marker Comprehensive Metabolic Panel Protime INR Hepatitis A IGG.IGM Hepatitis B Core Ab, IgM Hepatitis B Surface Ag Hepatitis C Ab CBC with Differential Hepatitis B Surface Ab US Abdomen Limited Referral ABDOMINAL US Plan: Patient to have EGD and colonoscopy for further evaluation. The procedural techniques, risk s, indications, and alternatives were discussed. Among the risks, are perforation, bleeding , infection, allergic/adverse reactions to medications, and cardiovascular complications. E ach of these could result in hospitalization, additional procedures (including surgery), or other life threatening complications. Patient verbalized understanding. Risk factors to col o-rectal cancer discussed with patient including smoking, obesity, excessive red meat ingest ion, advancing age and first degree family relative with history of colo-rectal cancer discu ssed with patient. Patient to call with any questions or concerns prior to procedure. Recommend procedure with anesthesia due to alcohol abuse. Because of his risk factors for hepatitis C with elevated liver function tests, ordered a a dditional labs for viral hepatitis. Also ordered abdominal ultrasound. Highly encouraged patient to discontinue alcohol use. Encouraged inpatient treatment for a lcohol abuse. Will follow up with results. Patient is to call with any question or concerns. Any fevers, chills, chest pain, SOB or other serious symptoms patient is to call the office or go to ER . Cc: Kenny Hernandez This note was dictated using voice recognition software. Please contact me if there are an y questions regarding its content. documented in this encounter Plan of Treatment +--------+---------+ + + + | Date | Type | Specialty | Care Team | Description | +--------+---------+ + + + | 09/30/ | Office | Cardiology | Samm Malik, | | | 2019 | Visit | | MD [address] | | | | | | [place] | | | | | | [id number] | | | | | | | | +--------+---------+ + + + | 01/28/ | Office | Cardiology | Vannesa Martinez | | | 2019 | Visit | | [address] | | | | | | [address] | | | | | | [place] [address] | | | | | | [phone] | | | | | | | | +--------+---------+ + + + + +---------+--------+ + + | Name | Type | Priori | Associated Diagnoses | Order Schedule | | | | ty | | | + +---------+--------+ + + | Alpha Fetoprotein, | Lab | Routin | Elevated LFTs | Expected: | | Tumor Marker | | e | Alcohol abuse | 05/03/2017, Expires: | | | | | Hiccups | 08/31/2017 | | | | | Gastroesophageal | | | | | | reflux disease, | | | | | | esophagitis presence | | | | | | not specified | | | | | | History of | | | | | | methamphetamine | | | | | | abuse Dysphagia, | | | | | | unspecified type | | + +---------+--------+ + + | Comprehensive | Lab | Routin | Elevated LFTs | Expected: | | Metabolic Panel | | e | Alcohol abuse | 05/03/2017, Expires: | | | | | Hiccups | 08/31/2017 | | | | | Gastroesophageal | | | | | | reflux disease, | | | | | | esophagitis presence | | | | | | not specified | | | | | | History of | | | | | | methamphetamine | | | | | | abuse Dysphagia, | | | | | | unspecified type | | + +---------+--------+ + + | Protime INR | Lab | Routin | Elevated LFTs | Expected: | | | | e | Alcohol abuse | 05/03/2017, Expires: | | | | | Hiccups | 08/31/2017 | | | | | Gastroesophageal | | | | | | reflux disease, | | | | | | esophagitis presence | | | | | | not specified | | | | | | History of | | | | | | methamphetamine | | | | | | abuse Dysphagia, | | | | | | unspecified type | | + +---------+--------+ + + | Hepatitis A IGG.IGM | Lab | Routin | Elevated LFTs | Expected: | | | | e | Alcohol abuse | 05/03/2017, Expires: | | | | | Hiccups | 08/31/2017 | | | | | Gastroesophageal | | | | | | reflux disease, | | | | | | esophagitis presence | | | | | | not specified | | | | | | History of | | | | | | methamphetamine | | | | | | abuse Dysphagia, | | | | | | unspecified type | | + +---------+--------+ + + | Hepatitis B Core Ab, | Lab | Routin | Elevated LFTs | Expected: | | IgM | | e | Alcohol abuse | 05/03/2017, Expires: | | | | | Hiccups | 08/31/2017 | | | | | Gastroesophageal | | | | | | reflux disease, | | | | | | esophagitis presence | | | | | | not specified | | | | | | History of | | | | | | methamphetamine | | | | | | abuse Dysphagia, | | | | | | unspecified type | | + +---------+--------+ + + | Hepatitis B Surface | Lab | Routin | Elevated LFTs | Expected: | | Ag | | e | Alcohol abuse | 05/03/2017, Expires: | | | | | Hiccups | 08/31/2017 | | | | | Gastroesophageal | | | | | | reflux disease, | | | | | | esophagitis presence | | | | | | not specified | | | | | | History of | | | | | | methamphetamine | | | | | | abuse Dysphagia, | | | | | | unspecified type | | + +---------+--------+ + + | Hepatitis C Ab | Lab | Routin | Elevated LFTs | Expected: | | | | e | Alcohol abuse | 05/03/2017, Expires: | | | | | Hiccups | 08/31/2017 | | | | | Gastroesophageal | | | | | | reflux disease, | | | | | | esophagitis presence | | | | | | not specified | | | | | | History of | | | | | | methamphetamine | | | | | | abuse Dysphagia, | | | | | | unspecified type | | + +---------+--------+ + + | CBC with | Lab | Routin | Elevated LFTs | 1 Occurrences | | Differential | | e | Alcohol abuse | starting 05/03/2017 | | | | | Hiccups | until 08/31/2017 | | | | | Gastroesophageal | | | | | | reflux disease, | | | | | | esophagitis presence | | | | | | not specified | | | | | | History of | | | | | | methamphetamine | | | | | | abuse Dysphagia, | | | | | | unspecified type | | + +---------+--------+ + + | Hepatitis B Surface | Lab | Routin | Elevated LFTs | Expected: | | Ab | | e | Alcohol abuse | 05/03/2017, Expires: | | | | | Hiccups | 08/31/2017 | | | | | Gastroesophageal | | | | | | reflux disease, | | | | | | esophagitis presence | | | | | | not specified | | | | | | History of | | | | | | methamphetamine | | | | | | abuse Dysphagia, | | | | | | unspecified type | | + +---------+--------+ + + | US Abdomen Limited | Imaging | Routin | Elevated LFTs | Expected: | | | | e | Alcohol abuse | 05/03/2017, Expires: | | | | | Hiccups | 08/31/2017 | | | | | Gastroesophageal | | | | | | reflux disease, | | | | | | esophagitis presence | | | | | | not specified | | | | | | History of | | | | | | methamphetamine | | | | | | abuse Dysphagia, | | | | | | unspecified type | | + +---------+--------+ + + + + +--------+ + + | Name | Type | Priori | Associated Diagnoses | Order Schedule | | | | ty | | | + + +--------+ + + | Referral ABDOMINAL | Outpatient | Routin | Elevated LFTs | Ordered: 05/03/2017 | | US | Referral | e | Alcohol abuse | | | | | | Hiccups | | | | | | Gastroesophageal | | | | | | reflux disease, | | | | | | esophagitis presence | | | | | | not specified | | | | | | History of | | | | | | methamphetamine | | | | | | abuse Dysphagia, | | | | | | unspecified type | | + + +--------+ + + documented as of this encounter Procedures + +--------+ + + + | Procedure Name | Priori | Date/Time | Associated Diagnosis | Comments | | | ty | | | | + +--------+ + + + | IMAGING REPORT - | | 06/08/2017 | | Results for this | | EXTERNAL SCAN | | 12:00 AM | | procedure are in the | | | | PDT | | results section. | + +--------+ + + + | LABS - EXTERNAL SCAN | | 06/07/2017 | | Results for this | | | | 12:00 AM | | procedure are in the | | | | PDT | | results section. | + +--------+ + + + documented in this encounter Results IMAGING REPORT - EXTERNAL SCAN (06/08/2017 12:00 AM PDT) + + + | Narrative | Performed At | + + + | Ordered by an | | | unspecified provider. | | + + + LABS - EXTERNAL SCAN (06/07/2017 12:00 AM PDT) + + + | Narrative | Performed At | + + + | Ordered by an | | | unspecified provider. 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
--- OUTSIDE RECORDS SUMMARY | ~2019-09-04 | XMS | Encounter Summary ---
Demographics + + + | Address | [address] | | | [place] [address] | + + + | Home Phone | | + + + | Preferred Language | Unknown | + + + | Marital Status | Unknown | + + + | Christian Affiliation | Unknown | + + + | Race | Unknown | + + + | Ethnic Group | Unknown | + + + Author + + + | Author | [facility] | | | and [place] | + + + | Organization | [facility] | | | and [place] | + + + | Address | Unknown | + + + | Phone | Unavailable | + + + Support + + + + + | Name | Relationship | Address | Phone | + + + + + | Taurus Salinas | ECON | [place] | | | | | [address] | | + + + + + | Detailed Message | ECON | Unknown | | + + + + + Care Team Providers + +------+ + | Care Supervisor Telephone Clerks Name | Role | Phone | + +------+ + | Kenny Hernandez DO | PCP | | + +------+ + Reason for Visit +--------+ + | Reason | Comments | +--------+ + | EGD | | +--------+ + Encounter Details +--------+ + + + + | Date | Type | Department | Care Team | Description | +--------+ + + + + | 08/30/ | Telephone | [facility] | Glen Dahl MD | EGD | | 2017 | | GASTROENTEROLOGY | [address] | | | | | [address] [facility] | [place], [place] | | | | | [address] [place], [place] | [address] | | | | | [address] | [phone] | | | | | [phone] | | | +--------+ + + + [...] [place] | | | | | | [address] | | | | | | | | +--------+---------+ + + + | 01/28/ | Office | Cardiology | Vannesa Martinez | | | 2019 | Visit | | [address] | | | | | | [address] | | | | | | [place] [address] | | | | | | [phone] | | | | | | | | +--------+---------+ + + + documented as of this encounter Visit Diagnoses Not on filedocumented in this encounter"
--- OUTSIDE RECORDS SUMMARY | ~2019-09-04 | XMS | Clinical Summary ---
Demographics + + + | Address | [address] | | | [place] [address] | + + + | Home Phone | | + + + | Preferred Language | Unknown | + + + | Marital Status | Unknown | + + + | Anabaptism Affiliation | Unknown | + + + | Race | Unknown | + + + | Ethnic Group | Unknown | + + + Author + + + | Author | [facility] | | | and [place] | + + + | Organization | [facility] | | | and [place] | + + + | Address | Unknown | + + + | Phone | Unavailable | + + + Support + + + + + | Name | Relationship | Address | Phone | + + + + + | Taurus Salinas | ECON | [place] | | | | | [address] | | + + + + + | Detailed Message | ECON | Unknown | | + + + + + Care Team Providers + +------+ + | Care Senior Information Developer Name | Role | Phone | + +------+ + | Kenny Hernandez DO | PCP | | + +------+ + Allergies No Known Allergies Medications + + + +---------+------+------+-------+ | Medication | Sig | Dispensed | Refills | Star | End | Statu | | | | | | t | Date | s | | | | | | Date | | | + + + +---------+------+------+-------+ | digoxin (LANOXIN) | Take 1 tablet by | | 0 | 03/1 | 03/ | Activ | | 125 mcg tablet | mouth daily. | | | 11/20 | 10/23 | e | | | | | | 19 | 20 | | + + + +---------+------+------+-------+ | spironolactone | Take 1 tablet by | | 0 | 03/0 | 03/0 | Activ | | (ALDACTONE) 25 mg | mouth daily. | | | 04/22 | 03/22 | e | | tablet | | | | 19 | 20 | | + + + +---------+------+------+-------+ | torsemide | Take 1 tablet by | | 0 | 04/2 | /2 | Activ | | (DEMADEX) 20 mg | mouth daily as | | | / | 3/20 | e | | tablet | needed. For lower | | | 19 | 20 | | | | ext ankles edema or | | | | | | | | weight gain | | | | | | + + + +---------+------+------+-------+ | carvedilol (COREG) | Take 1 tablet by | | 0 | 03/1 | | Activ | | 25 mg tablet | mouth 2 (two) times | | | 3/20 | | e | | | daily with meals. | | | 19 | | | + + + +---------+------+------+-------+ | warfarin | TAKE 1 TABLET BY | 60 | 3 | 11/2 | | Activ | | (COUMADIN) 5 mg | MOUTH ONCE DAILY | tablet | | 20 | | e | | tablet | | | | 19 | | | + + + +---------+------+------+-------+ | losartan (COZAAR) | Take 1 tablet by | 90 | 2 | 11/2 | 11/2 | Activ | | 100 MG tablet | mouth Daily. | tablet | | 7/20 | 6/20 | e | | | | | | 19 | 20 | | + + + +---------+------+------+-------+ Active Problems + + + | Problem | Noted Date | + + + | Chronic systolic congestive heart failure | 11/13/2018 | + + + | Chronic atrial fibrillation | 11/03/2018 | + + + | Cardiogenic shock | 11/03/2018 | + + + | Cerebrovascular accident (CVA) due to thrombosis of cerebral | 11/09/2017 | | artery | | + + + | Alcohol abuse | 05/03/2017 | + + + | Dysphagia, unspecified type | 05/03/2017 | + + + | Hiccups | 05/03/2017 | + + + | Gastroesophageal reflux disease | 05/03/2017 | + + + | History of methamphetamine abuse | 05/03/2017 | + + + | COPD (chronic obstructive pulmonary disease) | 06/01/2016 | + + + | Essential hypertension, benign | 06/01/2016 | + + + | Personal history of tobacco use, presenting hazards to health | 06/01/2016 | + + + | Panlobular emphysema | 01/20/2016 | + + + | Thoracic aortic aneurysm without rupture | 01/20/2016 | + + + Resolved Problems + + + + | Problem | Noted | Resolved | | | Date | Date | + + + + | Persistent atrial fibrillation | 04/23/20 | | | | 19 | 9 | + + + + | Troponin level elevated | 11/04/19 | | | | 19 | 9 | + + + + | Special screening for malignant neoplasms, colon | 05/24/20 | | | | 17 | 9 | + + + + | Elevated LFTs | 05/03/20 | | | | 17 | 9 | + + + + Encounters +--------+---------+ + + + | Date | Type | Specialty | Care Team | Description | +--------+---------+ + + + | 07/30/ | Office | Cardiology | Gabe Conrad, | Chronic systolic | | 2019 | Visit | | MD | congestive heart | | | | | | failure (HCC) | | | | | | (Primary Dx); | | | | | | Essential | | | | | | hypertension, | | | | | | benign; Persistent | | | [...] atrial fibrillation | +--------+---------+ + + + from Last 3 Months Immunizations + + + + | Name | Administration Dates | Next Due | + + + + | PNEUMOCOCCAL | 11/05/2018 | | | POLYSACCHARIDE | | | | 23-VALENT (PPSV23) | | | + + + + Family History + + +------+ + | Medical History | Relation | Name | Comments | + + +------+ + | Heart surgery | Father | | | + + +------+ + | Hypertension | Father | | | + + +------+ + + +------+ + + | Relation | Name | Status | Comments | + +------+ + + | Father | | | uncertain | + +------+ + + | Mother | | | brain tumor | + +------+ + + | Sister | | Alive | not in contact with her | + +------+ + + Social History + + + [...] | | | + +---+---+---+ + + | Tobacco Cessation: Counseling Given: No | + + + + +---------+ + | Alcohol Use [...] recent travel history available. | + + Last Filed Vital Signs + + + [...] | | + + + + + Plan of Treatment +--------+---------+ + + + | Date | Type | Specialty | Care Team | Description | +--------+---------+ + + + | 09/30/ | Office | Cardiology | Samm Malik, | | | 2019 | Visit | | [address] | | | | | | [place] | | | | | | [address] | | | | | | | | +--------+---------+ + + + | 01/28/ | Office | Cardiology | Vannesa Martinez | | | 2019 | Visit | | [address] | | | | | | [address] | | | | | | [place] [address] | | | | | | [phone] | | | | | | | | +--------+---------+ + + + + + + + + | Health Maintenance | Due Date | Last Done | Comments | + + + + + | Hepatitis C | | | | | Screening | 3 | | | + + + + + | Vaccine: | | | | | Dtap/Tdap/Td (1 - | 4 | | | | Tdap) | | | | + + + + + | Vaccine: Zoster (1 | | | | | of 2) | 3 | | | + + + + + | Statin Therapy | | | | | (optimal intensity) | 6 | | | + + + + + | Lung Cancer | | 03/23/2016, 11/23/2013, | | | Screening | 8 | 05/26/2013 | | + + + + + | Vaccine: Influenza | | | | | (#1) | 9 | | | + + + + + | Colorectal Cancer | | 05/25/2017, 05/25/2017 | | | Screening | 7 | | | | (Colonoscopy) | | | | + + + + + | Vaccine: | Completed | 11/05/2018 | | | Pneumococcal 19-64 | | | | + + + + + Results Not on filefrom Last 3 Months Insurance + +--------+ +--------+ +---------+--------+ | Payer | Benefi | Subscriber | Effect | Phone | Address | Type | | | t Plan | ID | asad | | | | | | / | | Dates | | | | | | Group | | | | | | + +--------+ +--------+ +---------+--------+ | [employer] | [employer] | [id number] | 03/03/20 | [phone] | | Medica | | MEDICAID HMO | HEALTH | | 14-Pre | 1 | | id | | | MDCD | | sent | | | | | | [place]MO [place] | | | | | | + +--------+ +--------+ +---------+--------+ | [employer] | [employer] | [id number] | | [phone] | | Medica | | MEDICAID HMO | HEALTH | | 018-Pr | 1 | | id | | | MDCD | | esent | | | | | | HMO [place] | | | | | | + +--------+ +--------+ +---------+--------+ | [employer] | [employer] | [id number] | 07/23/ | [phone] | | Medica | | MEDICAID HMO | HEALTH | | 2019-P | 1 | | id | | | MDCD | | resent | | | | | | [place]MO [place] | | | | | | + +--------+ +--------+ +---------+--------+ + +--------+ +--------+ + + | Guarantor Name | Accoun | Relation to | Date | Phone | Billing Address | | | t Type | Patient | of | | | | | | | | | | + +--------+ +--------+ + + | Taurus Domínguez | Person | Self | [birth year] | [address] | | | al/Fam | | 1965 | [phone] | [place], [place] | | | cristina | | | 5 (Work) | [address] | + +--------+ +--------+ + + | Taurus Domínguez | Person | Self | [birth year] | [address] | | | al/Fam | | 1965 | [phone] | [place], [place] | | | cristina | | | 5 (Work) | [phone] | + +--------+ +--------+ + + | Taurus Domínguez | Person | Self | [birth year] | [address] | | | al/Shiva | | 1965 | | [place] | | | [place] | | | | [address] | + +--------+ +--------+ + + Advance Directives + + + + + | Type | Date Recorded | Patient | Explanation | | | | Bag Making 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
--- OUTSIDE RECORDS SUMMARY | ~2019-09-04 | XMS | Encounter Summary ---
Demographics + + + | Address | [address] | | | [place] [address] | + + + | Home Phone | | + + + | Preferred Language | Unknown | + + + | Marital Status | Unknown | + + + | Gnosticist Affiliation | Unknown | + + + | Race | Unknown | + + + | Ethnic Group | Unknown | + + + Author + + + | Author | [facility] | | | and [place] | + + + | Organization | [facility] | | | and [place] | + + + | Address | Unknown | + + + | Phone | Unavailable | + + + Support + + + + + | Name | Relationship | Address | Phone | + + + + + | Taurus Salinas | ECON | [place] | | | | | [address] | | + + + + + | Detailed Message | ECON | Unknown | | + + + + + Care Team Providers + +------+ + | Care Therapeutic Radiologist Name | Role | Phone | + [...] Anamaria, | | | | | | Daisy | MD Gabe | | | | | Cardiomyopat | [place], | [address] | | | | | hy, | [address] | | | | | unspecified | [address] | [place], [place] | | | | | ([facility]) | Ave | [address] Phone: | | | | | | [place], | [phone] | | | | | | [place] | Fax: | | | | | | [address] | [phone] | | | | | | Phone: | | | | | | | [phone] | | | | | | | Fax: | | | | | | | [phone] | | + +--------+ + + + + Encounter Details +--------+---------+ + + + | Date | Type | Department | Care Team | Description | +--------+---------+ + + + | 07/30/ | Office | [facility] | Gabe Persaud, | Chronic systolic | | 2019 | Visit | CARDIOLOGY JEMMA | [address] | congestive heart | | | | [address] | [place], [place] | failure (HCC) | | | | [address] [place] [address] | [address] | (Primary Dx); | | | | [place] | | Essential | | | | [address] | | hypertension, | | | | [phone] | | benign; Persistent | | | [...] doses, added digoxin. Was hospitalized initially and [facility] in November 2018 secondary to atrial fibrilla tion and rapid ventricular response. Was treated with diltiazem IV, that caused hypotension and cardiogenic shock then transferr ed to [facility] for cardiac evaluation despite the fact that [facility] have ca rdiology service. Patient was admitted to intensive care unit. Was treated with medical management. Of note on his admission to [facility] he was tested positive for cannabinoids and [...] (H) 11/07/2018 TSH 2.12 11/03/2018 EC04/18/2019 From [facility] reviewed showed atrial fibrillation with rapid ventricular [...] | | | | | [place], [place] | | | | | | [id number] | | | | | | | | +--------+---------+ + + + | 01/28/ | Office | Cardiology | Vannesa Martinez | | 2019 | Visit | | [address] | | | | | | [address] | | | | | | [place] [address] | | | | | | [phone] | | | | | | | [...]
--- OUTSIDE RECORDS SUMMARY | ~2019-09-04 | XMS | Encounter Summary ---
Demographics + + + | Address | [address] | | | [place] [address] | + + + | Home Phone | | + + + | Preferred Language | Unknown | + + + | Marital Status | Unknown | + + + | Uatsdin Affiliation | Unknown | + + + | Race | Unknown | + + + | Ethnic Group | Unknown | + + + Author + + + | Author | [facility] | | | and [place] | + + + | Organization | [facility] | | | and [place] | + + + | Address | Unknown | + + + | Phone | Unavailable | + + + Support + + + + + | Name | Relationship | Address | Phone | + + + + + | Taurus Salinas | ECON | [place] | | | | | [address] | | + + + + + | Detailed Message | ECON | Unknown | | + + + + + Care Team Providers + +------+ + | Care Loom Tuner Name | Role | Phone | + [...] | pulmonary disease, | | | | [place], | | unspecified COPD | | | | [place] [address] | | type (HCC) (Primary | | | | [phone] | | Dx) | +--------+ + + [...] [place] | | | | | | [address] | | | | | | | | +--------+---------+ + + + | 01/28/ | Office | Cardiology | Vannesa Martinez | | | 2019 | Visit | | [address] | | | | | | [address] | | | | | | [place] [address] | | | | | | [phone] | | | | | | | | +--------+---------+ + + + documented as of this encounter Results PFT PULMONARY FUNCTION TESTING ORDERS Full PFT ([place] w/BD, lung volumes, diffusion)?: Yes (02/06/2016 7:12 [...] [place] MD 02/06/2016 19:08 | | | [facility] CC: Daisy Stratton, | | | PA-C | | + + + documented in this encounter Visit Diagnoses + + | Diagnosis | + + | Chronic obstructive pulmonary disease, unspecified COPD type (HCC) - Primary | + + documented in this encounter"
--- OUTSIDE RECORDS SUMMARY | ~2019-09-04 | XMS | Encounter Summary ---
Demographics + + + | Address | [address] | | | [place] [address] | + + + | Home Phone | | + + + | Preferred Language | Unknown | + + + | Marital Status | Unknown | + + + | Catholic Affiliation | Unknown | + + + | Race | Unknown | + + + | Ethnic Group | Unknown | + + + Author + + + | Author | [facility] | | | and [place] | + + + | Organization | [facility] | | | and [place] | + + + | Address | Unknown | + + + | Phone | Unavailable | + + + Support + + + + + | Name | Relationship | Address | Phone | + + + + + | Taurus Salinas | ECON | [place] | | | | | [address] | | + + + + + | Detailed Message | ECON | Unknown | | + + + + + Care Team Providers + +------+ + | Care Visitor Services Information Assistant Name | Role | Phone | + +------+ + | Kenny Hernandez DO | PCP | | + +------+ + Reason for Visit + + + | Reason | Comments | + + + | Denial Of Service | | + + + Encounter Details +--------+ + + + + | Date | Type | Department | Care Team | Description | +--------+ + + + + | 11/13/ | Telephone | [facility] | Moris Patterson MD | Denial Of Service | | 2018 | | [facility] | [address] | | | | | CLINIC [address] | [place] | | | | | [address] [place], | [address] | | | | | [place] [address] | | | | | | [phone] | | | +--------+ + + + [...] [place] | | | | | | [id number] | | | | | | | | +--------+---------+ + + + | 01/28/ | Office | Cardiology | Vannesa Martinez | | | 2019 | Visit | | [address] | | | | | | [address] | | | | | | [place] [address] | | | | | | [phone] | | | | | | | | +--------+---------+ + + + documented as of this encounter Visit Diagnoses Not on filedocumented in this encounter"
--- OUTSIDE RECORDS SUMMARY | ~2019-09-04 | XMS | Encounter Summary ---
Demographics + + + | Address | [address] | | | [place] [address] | + + + | Home Phone [...] | Taurus Salinas | ECON | [place] | | | | | [address] | | + + + + + | Detailed Message | ECON | Unknown | | + + + + + Care Team Providers + +------+ + | Care Sugar Sampler Name | Role | Phone | + +------+ + | Kenny Hernandez DO | PCP | | + +------+ + Encounter Details +--------+ + + + + | Date | Type | Department | Care Team | Description | +--------+ + + + + | 03/23/ | Orders Only | [facility] | Daisy Jane | | | 2016 | | [address] | [address] | | | | | [address] | [address] | | | | | [place] | [place] | | | | | [address] | [address] | | | | | [phone] | | | | | | | | +--------+ + + + + Social History + + + +--------+ + | Tobacco Use | Types | Packs/Day | Years | Date | | | | | Used | | + + + +--------+ + | Former Smoker | Cigarettes | 1 | 33 | Quit: 10/04/2010 | + + + +--------+ + + +---+---+---+ | Smokeless Tobacco: | | | | | Former User | | | | + +---+---+---+ + + +---------+ + | Alcohol Use | Drinks/Week | oz/Week | Comments | + + +---------+ + | Yes | 0 Standard drinks | 0.0 | 5-10 drinks daily, | | | or equivalent | | can drink a 5th a | | | | | day easily | + + +---------+ + + + [...] | 2019 | Visit | | [address] | | | | | | [place] [facility] [place] | | | | | | [address] | | | | | | | | +--------+---------+ + + + | 01/28/ | Office | Cardiology | JuanVannesa | | | 2019 | Visit | | [address] | | | | | | [address] | | | | | | [place] [address] | | | | | | [phone] | | | | | | | | +--------+---------+ + + + documented as of this encounter Procedures + +--------+ + + + | Procedure Name | Priori | Date/Time | Associated Diagnosis | Comments | | | ty | | | | + +--------+ + + + | ECHO INTERPRETATION | Routin | 03/23/2016 | | Results for this | | OF OUTSIDE FILMS | e | 1:55 PM | | procedure are in the | | | | PDT | | results section. | + +--------+ + + + documented in this encounter Results ECHO Interpretation of Outside Films (03/23/2016 1:55 PM PDT) + + | Specimen | + + | | + + + + + | Impressions | Performed At | + + + | 1. Overall left ventricular systolic function is normal with, an EF | | | between 65 - 70 %. 2. The aortic root appears dilated to 5cm and | | | ascending aorta 4.2-4.5cm. 3. Consider additional imaging to evaluate | | | aortic root and ascending aorta. | | + + + + + + | Narrative | Performed At | + + + | Patient Name: Taurus Domínguez Date of : 1965 | | | Performing Physician: JAYCOB FARRELL MD | | | | | | INDICATIONS Dyspnea, ao dilated CONCLUSIONS | | | 1. Overall left ventricular systolic function is normal | | | with, an EF between 65 - 70 %. 2. The aortic root appears dilated to | | | 5cm and ascending aorta 4.2-4.5cm. 3. Consider additional imaging to | | | evaluate aortic root and ascending aorta. FINDINGS -------- | | | Study: A 2-dimensional transthoracic echocardiogram with m-mode, | | | spectral and color flow Doppler was perfomed. Study: This was a | | | technically adequate study. Left Ventricle: Overall left ventricular | | | systolic function is normal with, an EF between 65 - 70 %. Left | | | Ventricle: The left ventricle cavity size is normal. Left Ventricle: | | | Left ventricular wall thickness is normal. Left Ventricle: The | | | diastolic filling pattern is normal for the age of the patient. Right | | | Ventricle: The right ventricle is normal in size. Left Atrium: The | | | left atrium is mildly dilated. Right Atrium: The right atrial size is | | | normal. Aortic Valve: The aortic valve is trileaflet and appears | | | structurally normal. Mitral Valve: The mitral valve is normal. | | | Mitral Valve: No mitral regurgitation. Tricuspid Valve: The tricuspid | | | valve appears structurally normal. Tricuspid Valve: No regurgitation | | | noted Tricuspid Valve: There is no evidence of pulmonary | | | hypertension. Pulmonic Valve: The pulmonic valve is normal. | | | Pericardium: There is no pericardial effusion. IVC/Hepatic Veins: The | | | IVC is normal size (1.5-2.5cm) and collapses >50% with sniff, | | | consistent with central venous pressures of 5-10mmHg. Aorta: The | | | aortic root and ascending aorta are dilated measuring up to (enter | | | manually) mm. Consider Aorta: additional immaging to evaluate aortic | | | root and ascending aorta. MEASUREMENTS | | | Change Release Manager: JILLIAN Authenticated by: JAYCOB FARRELL MD Report | | | Date/Time: -- [id number] | | + + + + + | Procedure Note | + + | David Solorio Conversion - 04/24/2019 10:32 PM PDT Patient Name: Fahad Domínguez of | | : 1965 Performing Physician: JAYCOB FARRELL | | INDICATIONS D | | yspnea, ao dilated CONCLUSIONS 1. Overall left ventricular systolic function | | is normal with, an EF between 65 - 70 %.2. The aortic root appears dilated to 5cm and | | ascending aorta 4.2-4.5cm.3. Consider additional imaging to evaluate aortic root and | | ascending aorta. FINDINGS--------Study: A 2-dimensional transthoracic echocardiogram | | with m-mode, spectral and color flow Doppler was perfomed.Study: This was a technically | | adequate study.Left Ventricle: Overall left ventricular systolic function is normal | | with, an EF between 65 - 70 %.Left Ventricle: The left ventricle cavity size is | | normal.Left Ventricle: Left ventricular wall thickness is normal.Left Ventricle: The | | diastolic filling pattern is normal for the age of the patient.Right Ventricle: The | | right ventricle is normal in size.Left Atrium: The left atrium is mildly dilated.Right | | Atrium: The right atrial size is normal.Aortic Valve: The aortic valve is trileaflet and | | appears structurally normal.Mitral Valve: The mitral valve is normal.Mitral Valve: No | | mitral regurgitation.Tricuspid Valve: The tricuspid valve appears structurally | | normal.Tricuspid Valve: No regurgitation notedTricuspid Valve: There is no evidence of | | pulmonary hypertension.Pulmonic Valve: The pulmonic valve is normal.Pericardium: There | | is no pericardial effusion.IVC/Hepatic Veins: The IVC is normal size (1.5-2.5cm) and | | collapses >50% with sniff, consistent with central venous pressures of 5-10mmHg.Aorta: | | The aortic root and ascending aorta are dilated measuring up to (enter manually) mm. | | ConsiderAorta: additional immaging to evaluate aortic root and ascending aorta. | | MEASUREMENTS Change Release Manager: DHAuthenticated by: JAYCOB Coats | | Date/Time: -- [id number] IMPRESSION: 1. Overall left ventricular systolic | | function is normal with, an EF between 65 - 70 %.2. The aortic root appears dilated to | | 5cm and ascending aorta 4.2-4.5cm.3. Consider additional imaging to evaluate aortic root | | and ascending aorta. | |Left Atrium: The left atrium is mildly dilated. | |Right Atrium: The right atrial size is normal. | |Aortic Valve: The aortic valve is trileaflet and appears structurally normal. | |Mitral Valve: The mitral valve is normal. | |Mitral Valve: No mitral regurgitation. | |Tricuspid Valve: The tricuspid valve appears structurally normal. | |Tricuspid Valve: No regurgitation noted | |Tricuspid Valve: There is no evidence of pulmonary hypertension. | |Pulmonic Valve: The pulmonic valve is normal. | |Pericardium: There is no pericardial effusion. | |IVC/Hepatic Veins: The IVC is normal size (1.5-2.5cm) and collapses >50% with sniff, consis tent with central venous pressures of 5-10mmHg. | |Aorta: The aortic root and ascending aorta are dilated measuring up to (enter manually) mm. Consider | |Aorta: additional immaging to evaluate aortic root and ascending aorta. | | | |MEASUREMENTS | | | | | |Change Release Manager: JILLIAN | |Authenticated by: JAYCOB FARRELL MD | |Report Date/Time: -- [id number] | | | |IMPRESSION: | |1. Overall left ventricular systolic function is normal with, an EF between 65 - 70 %. | |2. The aortic root appears dilated to 5cm and ascending aorta 4.2-4.5cm. | |3. Consider additional imaging to evaluate aortic root and ascending aorta. | + + documented in this encounter Visit Diagnoses Not on filedocumented in this encounter"
--- OUTSIDE RECORDS SUMMARY | ~2019-09-04 | XMS | Encounter Summary ---
Demographics + + + | Address | [address] | | | [place] [address] | + + + | Home Phone | | + + + | Preferred Language | Unknown | + + + | Marital Status | Unknown | + + + | Hinduism Affiliation | Unknown | + + + | Race | Unknown | + + + | Ethnic Group | Unknown | + + + Author + + + | Author | [facility] | | | and [place] | + + + | Organization | [facility] | | | and [place] | + + + | Address | Unknown | + + + | Phone | Unavailable | + + + Support + + + + + | Name | Relationship | Address | Phone | + + + + + | Taurus Salinas | ECON | [place] | | | | | [address] | | + + + + + | Detailed Message | ECON | Unknown | | + + + + + Care Team Providers + +------+ + | Care Decator Operator Name | Role | Phone | + +------+ + | Kenny Hernandez DO | PCP | | + +------+ + Reason for Referral Evaluate & Treat (Routine) + + + + + + + | Status | Reason | Specialty | Diagnoses / | Referred By | Referred To | | | | | Procedures | Contact | Contact | + + + + + + + | Authorized | Specialty | Cardiology | Diagnoses | Anamaria, | Samm Collins | | | Services | | Persistent | MD Gabe | MD Frank | | | Required | | atrial | [address] | | | | | fibrillation | [address] | [address] | | | | | | [place] [address] | [place], [place] | | | | | | [place], [place] | [address] Phone: | | | | | | [phone] | [phone] | | | | | | Phone: | Fax: | | | | | | [phone] | [phone] | | | | | | Fax: | | | | | | | [phone] | | + + + + + + + Encounter Details +--------+ + + + + | Date | Type | Department | Care Team | Description | +--------+ + + + + | 04/23/ | Orders Only | [facility] | Gabe Conrad, | Persistent atrial | | 2019 | | CARDIOLOGY [place] | MD [address] | fibrillation (HCC) | | | | [address] | [place], [place] | | | | | [address] | [address] | | | | | [place], [place] | | | | | | [address] | | | | | | [phone] | | | +--------+ + + + [...] 09/30/ | Office | Cardiology | Samm Collins, | | | 2019 | Visit | | MD [address] | | | | | | [place] | | | | | | [address] | | | | | | | | +--------+---------+ + + + | 01/28/ | Office | Cardiology | Vannesa Martinez | | | 2019 | Visit | | [address] | | | | | | [address] | | | | | | [place] [address] | | | | | | [phone] | | | | | | | | +--------+---------+ + + + + + +--------+ + + | Name | Type | Priori | Associated Diagnoses | Order Schedule | | | | ty | | | + + +--------+ + + | Ambulatory referral | Outpatient | Routin | Persistent atrial | Ordered: 04/23/2019 | | to [facility] Cardiac | Referral | e | fibrillation (HCC) | | | Electrophysiology | | | | | | [place] | | | | | + + +--------+ + + documented as of this encounter Visit Diagnoses + + | Diagnosis | + + | Persistent atrial fibrillation Atrial fibrillation | + + documented in this encounter"
--- OUTSIDE RECORDS SUMMARY | ~2019-09-04 | XMS | Encounter Summary ---
Demographics + + + | Address | [address] | | | [place] [address] | + + + | Home Phone | | + + + | Preferred Language | Unknown | + + + | Marital Status | Unknown | + + + | Protestant Affiliation | Unknown | + + + | Race | Unknown | + + + | Ethnic Group | Unknown | + + + Author + + + | Author | [facility] | | | and [place] | + + + | Organization | [facility] | | | and [place] | + + + | Address | Unknown | + + + | Phone | Unavailable | + + + Support + + + + + | Name | Relationship | Address | Phone | + + + + + | Taurus Salinas | ECON | [place] | | | | | [address] | | + + + + + | Detailed Message | ECON | Unknown | | + + + + + Care Team Providers + +------+ + | Care Vibratory Pile Driver Name | Role | Phone | + +------+ + | Kenny Hernandez DO | PCP | | + +------+ + Reason for Visit +--------+ + | Reason | Comments | +--------+ + | Other | end of study | +--------+ + Encounter Details +--------+ + + + + | Date | Type | Department | Care Team | Description | +--------+ + + + + | 03/27/ | Documentati | [facility] | Kelsie Reddy, | Other (end of study) | | 2019 | on | CARDIOLOGY [place] | Technologist | | | | | [address] | | | | | | [place], [place] | | | | | | [address] | | | | | | [phone] | | | +--------+ + + + [...] encounter Progress Notes Kelsie Reddy, Technologist - 03/27/2019 11:59 PM PDTDate of Event Monitor: 03/27/19 Referring Physician: No Patient:Taurus Domínguez : 1965 Age: 53 y.o. male INDICATIONS: Chronic atrial fibrillation, Chronic systoliccongestive Conclusion: 1. 30-day event monitor, total of [id number] recorded. 2. Patient was in atrial fibrillation. 3. Average heart rate was 109 bpm, minimum heart rate 60 bpm. 4. Fastest heart rate was 212 bpm. 5. Patient had multiple pauses longest of 2.2 seconds. 6. One episode of nonsustained ventricular tachycardia of 5 beats. documented in this encounter Plan of Treatment +--------+---------+ + + + | Date | Type | Specialty | Care Team | Description | +--------+---------+ + + + | 09/30/ | Office | Cardiology | Samm Malik, | | | 2019 | Visit | | MD [address] | | | | | | [place] | | | | | | [address] | | | | | | | | +--------+---------+ + + + | 01/28/ | Office | Cardiology | Vannesa Martinez | | | 2019 | Visit | | [address] | | | | | | [address] | | | | | | [place] [address] | | | | | | [phone] | | | | | | | | +--------+---------+ + + + documented as of this encounter Visit Diagnoses + + | Diagnosis | + + | Chronic atrial fibrillation Atrial fibrillation | + + | Chronic systolic congestive heart failure (HCC) Chronic systolic heart failure | + + documented in this encounter"
--- OUTSIDE RECORDS SUMMARY | ~2019-09-04 | XMS | Encounter Summary ---
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 + | CO2 | 28 | 24 - 31 mmol/L | [facility] | | | | | | [facility] | | | | | | CENTER - | | | | | | LABORATORY | | + + + + + + | Anion Gap | 11 | 3 - 16 mmol/L | [facility] | | | | | | [facility]ICAL | | | | | | CENTER - | | | | | | LABORATORY | | + + + + + + | Glucose | 99 | 70 - 109 mg/dL | [facility] | | | | | | [facility] | | | | | | CENTER - | | | | | | LABORATORY | | + + + + + + | BUN | 12 | 7 - 18 mg/dL | [facility] | | | | | | [facility]ICAL | | | | | | CENTER - | | | | | | LABORATORY | | + + + + + + | Creatinine | 0.86 | 0.60 - 1.30 | [facility] | | | | | mg/dL | [facility] | | | | | | MEDICAL | | | | | | CENTER - | | | | | | LABORATORY | | + + + + + + | eGFR if not | >60Comment: GLOMERULAR | >=60 | [facility] | | | | FILTRATION | mL/min/1.73m2 | [facility] | | | [place] | RATE,ESTIMATED | | MEDICAL | | | | mL/min/1.54m3Xvix than | | CENTER - | | | | 60 Chronic kidney | | LABORATORY | | | | disease,if found over a | | | | | | 3-month period.Less than | | | | | | 15 Kidney failureFor | | | | | | | | | | | | Americans,multiply the | | | | | | calculated GFR by 1.21. | | | | | | | | | | + + + + + + | Calcium | 10.0 | 8.3 - 10.5 | [facility] | | | | | mg/dL | [facility] | | | | | | MEDICAL | | | | | | CENTER - | | | | | | LABORATORY | | + + + + + + | BUN/Creatin | 14.0 | | [facility] | | | ine Ratio | | | [facility] | | | | | | [...] + + | [facility] | [address] | [place] | [phone] | | [facility] | | [id number] | | | - LABORATORY | | | | + + + + + DIAGNOSTIC REPORT - EXTERNAL SCAN (01/13/2016 12:00 AM PDT) + + + | Narrative | Performed At | + + + | Ordered by an | | | unspecified provider. | | + + + IMAGING REPORT - EXTERNAL SCAN (05/26/2015 12:00 AM PDT) + + + | Narrative | Performed At | + + + | Ordered by an | | | unspecified provider. | | + + + DIAGNOSTIC REPORT - EXTERNAL SCAN (07/24/2014 12:00 AM PST) + + + | Narrative | Performed At | + + + | Ordered by an | | | unspecified provider. | | + + + DIAGNOSTIC REPORT - EXTERNAL SCAN (07/24/2014 12:00 AM PST) + + + | Narrative | Performed At | + + + | Ordered by an | | | unspecified provider. | | + + + documented in this encounter Visit Diagnoses + + | Diagnosis | + + | Shortness of breath | + + | Panlobular emphysema (HCC) Other emphysema | + + | Thoracic aortic aneurysm without rupture (HCC) Thoracic aneurysm without mention of | | rupture | + + | Intractable hiccups Hiccough | + + | Heartburn | + + documented in this encounter
--- OUTSIDE RECORDS SUMMARY | ~2019-09-04 | XMS | Encounter Summary ---
Demographics + + + | Address | [address] | | | [place] [address] | + + + | Home Phone | | + + + | Preferred Language | Unknown | + + + | Marital Status | Unknown | + + + | Faith Affiliation | Unknown | + + + | Race | Unknown | + + + | Ethnic Group | Unknown | + + + Author + + + | Author | [facility] | | | and [place] | + + + | Organization | [facility] | | | and [place] | + + + | Address | Unknown | + + + | Phone | Unavailable | + + + Support + + + + + | Name | Relationship | Address | Phone | + + + + + | Taurus Salinas | ECON | [place] | | | | | [address] | | + + + + + | Detailed Message | ECON | Unknown | | + + + + + Care Team Providers + +------+ + | Care Department Of Sociology Chair Name | Role | Phone | + +------+ + | Kenny Hernandez DO | PCP | | + +------+ + Encounter Details +--------+ + + + + | Date | Type | Department | Care Team | Description | +--------+ + + + + | 05/03/ | Episode | [facility] | Lia Hanson, | | | 2016 | Changes | GASTROENTEROLOGY | RN | | | | | [address] [place] | | | | | | [address] [place] | | | | | | [address] | | | | | | [phone] | | | +--------+ + + + [...] [place] | | | | | | [address] | | | | | | | | +--------+---------+ + + + | 01/28/ | Office | Cardiology | Vannesa Martinez | | | 2019 | Visit | | [address] | | | | | | [address] | | | | | | [place] [address] | | | | | | [phone] | | | | | | | | +--------+---------+ + + + documented as of this encounter Visit Diagnoses Not on filedocumented in this encounter"
--- OUTSIDE RECORDS SUMMARY | ~2019-09-04 | XMS | Encounter Summary ---
Demographics + + + | Address | [address] | | | [place] [address] | + + + | Home Phone | | + + + | Preferred Language | Unknown | + + + | Marital Status | Unknown | + + + | Mormonism Affiliation | Unknown | + + + [...] [place] | | | | | [address] | | + + + + + | Detailed Message | ECON | Unknown | | + + + + + Care Team Providers + +------+ + | Care Fabricator Special Items Name | Role | Phone | + +------+ + | Kenny Hernandez DO | PCP | | + +------+ + Reason for Visit + + + | Reason | Comments | + + + | Appointment | | + + + Encounter Details +--------+ + + + + | Date | Type | Department | Care Team | Description | +--------+ + + + + | 07/02/ | Telephone | [facility] | [facility], | Appointment | | 2017 | | GASTROENTEROLOGY | [address] | | | | | [address] [place] | [place], [place] [address] | | | | | [address] [place], [place] | [place], [place] | | | | | [address] | [address] | | | | | [phone] | | | +--------+ + + + [...] [place] | | | | | | [address] | | | | | | | | +--------+---------+ + + + | 01/28/ | Office | Cardiology | Vannesa Martinez | | | 2019 | Visit | | [address] | | | | | | [address] | | | | | | [place] [address] | | | | | | [phone] | | | | | | | | +--------+---------+ + + + documented as of this encounter Visit Diagnoses Not on filedocumented in this encounter"
--- OUTSIDE RECORDS SUMMARY | ~2019-09-04 | XMS | Encounter Summary ---
Demographics + + + | Address | [address] | | | [place] [address] | + + + | Home Phone [...] [place] | | | | | [address] | | + + + + + | Detailed Message | ECON | Unknown | | + + + + + Care Team Providers + +------+ + | Care As400 Administrator Name | Role | Phone | + +------+ + | Kenny Hernandez DO | PCP | | + +------+ + Encounter Details +--------+ + + + + | Date | Type | Department | Care Team | Description | +--------+ + + + + | 03/20/ | Hospital | [facility] [place] [facility] | Conversion | Diagnosis unknown | | 2018 | Encounter | CONVERSION [address] | Transaction, | | | | | [address] | Provider Unknown | | | | | [place], [place] | | | | | | [address] | (Fax) | | | | | [phone] | | | +--------+ + + + [...] [place] | | | | | | [address] | | | | | | | | +--------+---------+ + + + | 01/28/ | Office | Cardiology | Vannesa Martinez | | | 2019 | Visit | | [address] | | | | | | [address] | | | | | | [place] [address] | | | | | | [phone] | | | | | | | | +--------+---------+ + + + documented as of this encounter Procedures + +--------+ + + + | Procedure Name | Priori | Date/Time | Associated Diagnosis | Comments | | | ty | | | | + +--------+ + + + | NM MYOCARDIAL | Routin | 03/20/2018 | | Results for this | | PERFUSION MULT SPECT | e | 8:30 PM | | procedure are in the | | | | PDT | | results section. | + +--------+ + + + documented in this encounter Results NM Myocardial Perfusion Mult SPECT (03/20/2018 8:30 PM PDT) + + | Specimen | + + | | + + + + + | Narrative | Performed At | + + + | This is a non-reportable procedure without a radiologist report and | | | is used for image storage only | | + + + + + | Procedure Note | + + | Osmin David Siomara - 04/16/2019 1:30 PM PDT This is a non-reportable procedure | | without a radiologist report and isused for image storage only | + + documented in this encounter Visit Diagnoses + + | Diagnosis | + + | Diagnosis unknown Other unknown and unspecified cause of morbidity or mortality | + + documented in this encounter"
--- OUTSIDE RECORDS SUMMARY | ~2019-09-04 | XMS | Encounter Summary ---
Demographics + + + | Address | [address] | | | [place] [address] | + + + | Home Phone | | + + + | Preferred Language | Unknown | + + + | Marital Status | Unknown | + + + | Church Affiliation | Unknown | + + + | Race | Unknown | + + + | Ethnic Group | Unknown | + + + Author + + + | Author | [facility] | | | and [place] | + + + | Organization | [facility] | | | and [place] | + + + | Address | Unknown | + + + | Phone | Unavailable | + + + Support + + + + + | Name | Relationship | Address | Phone | + + + + + | Taurus Salinas | ECON | [place] | | | | | [address] | | + + + + + | Detailed Message | ECON | Unknown | | + + + + + Care Team Providers + +------+ + | Care Armature Inspector Name | Role | Phone | + [...] | | | | [address] [place] [place] | | | | | | [address] | | | | | | [phone] | | | +--------+ + + + [...] [place] | | | | | | [address] | | | | | | | | +--------+---------+ + + + | 01/28/ | Office | Cardiology | Vannesa Martinez | | | 2019 | Visit | | [address] | | | | | | [address] | | | | | | [place] [address] | | | | | | [phone] | | | | | | | | +--------+---------+ + + + documented as of this encounter Visit Diagnoses Not on filedocumented in this encounter"
--- OUTSIDE RECORDS SUMMARY | ~2019-09-04 | XMS | Encounter Summary ---
Demographics + + + | Address | [address] | | | [place] [address] | + + + | Home Phone | | + + + | Preferred Language | Unknown | + + + | Marital Status | Unknown | + + + | Church Affiliation | Unknown | + + + | Race | Unknown | + + + | Ethnic Group | Unknown | + + + Author + + + | Author | [facility] | | | and [place] | + + + | Organization | [facility] | | | and [place] | + + + | Address | Unknown | + + + | Phone | Unavailable | + + + Support + + + + + | Name | Relationship | Address | Phone | + + + + + | Taurus Salinas | ECON | [place] | | | | | [address] | | + + + + + | Detailed Message | ECON | Unknown | | + + + + + Care Team Providers + +------+ + | Care Technical Producer Name | Role | Phone | + [...] [place] | | | | | [address] | [address] | | | | | [phone] | [phone] | | | | | | | [...] | | | | | | [place] [facility] [place] | | | | | | [address] | | | | | | | | +--------+---------+ + + + | 01/28/ | Office | Cardiology | JuanVannesa | | | 2019 | Visit | | [address] | | | | | | [place] [address] | | | | | | [place] [address] | | | | | | [phone] | | | | | | | [...] and ascending aorta. MEASUREMENTS | | | Anchorman: JILLIAN Authenticated by: JAYCOB FARRELL MD Report | | | Date/Time: -- [id number] | | + + + + + [...] root and ascending aorta. | | MEASUREMENTS Anchorman: DHAuthenticated by: JAYCOB Coats | | Date/Time: -- [id number]:29 IMPRESSION: 1. Overall left ventricular systolic | [...] | |MEASUREMENTS | | | | | |Anchorman: JILLIAN | |Authenticated by: JAYCOB FARRELL MD | |Report Date/Time: -- [id number]:29 | | | |IMPRESSION: | |1. Overall [...]
--- OUTSIDE RECORDS SUMMARY | ~2019-09-04 | XMS | Encounter Summary ---
Demographics + + + | Address | [address] | | | [place] [address] | + + + | Home Phone | | + + + | Preferred Language | Unknown | + + + | Marital Status | Unknown | + + + | Religion Affiliation | Unknown | + + + | Race | Unknown | + + + | Ethnic Group | Unknown | + + + Author + + + | Author | [facility] | | | and [place] | + + + | Organization | [facility] | | | and [place] | + + + | Address | Unknown | + + + | Phone | Unavailable | + + + Support + + + + + | Name | Relationship | Address | Phone | + + + + + | Taurus Salinas | ECON | [place] | | | | | [address] | | + + + + + | Detailed Message | ECON | Unknown | | + + + + + Care Team Providers + +------+ + | Care Stitch Welder Name | Role | Phone | + [...] | | unspecified | [address] | [place], [place] | | | | | ([facility]) | Ave | [address] Phone: | | | | | | [place], | [phone] | | | | | | [place] | Fax: | | | | | | [address] | [phone] | | | | | | Phone: | | | | | | | [phone] | | | | | | | Fax: | | | | | | | [phone] | | + +--------+ + + + + Encounter Details +--------+---------+ + + + | Date | Type | Department | Care Team | Description | +--------+---------+ + + + | 07/30/ | Office | [facility] | Gabe Persaud, | Chronic systolic | | 2019 | Visit | CARDIOLOGY [place] | [address] | congestive heart | | | | [address] | [place], [place] | failure (HCC) | | | | [address] [place] [address] | [address] | (Primary Dx); | | | | [place] | | Essential | | | | [address] | | hypertension, | | | | [phone] | | benign; Persistent | | | [...] doses, added digoxin. Was hospitalized initially and [facility] in November 2018 secondary to atrial fibrilla tion and rapid ventricular response. Was treated with diltiazem IV, that caused hypotension and cardiogenic shock then transferr ed to [facility] for cardiac evaluation despite the fact that [facility] have ca rdiology service. Patient was admitted to intensive care unit. Was treated with medical management. Of note on his admission to [facility] he was tested positive for [...] (H) 11/07/2018 TSH 2.12 11/03/2018 EC04/18/2019 From [facility] reviewed showed atrial fibrillation with rapid [...] | | | | | [place], [place] | | | | | | [id number] | | | | | | | | +--------+---------+ + + + | 01/28/ | Office | Cardiology | Vannesa Martinez | | 2019 | Visit | | [address] | | | | | | [address] | | | | | | [place] [address] | | | | | | [phone] | | | | | | | [...]
--- OUTSIDE RECORDS SUMMARY | ~2019-09-04 | XMS | Encounter Summary ---
Demographics + + + | Address | [address] | | | [place] [address] | + + + | Home Phone [...] | [place] | | | | | [address] | | + + + + + | Detailed Message | ECON | Unknown | | + + + + + Care Team Providers + +------+ + | Care Direct Sales Professional Name | Role | Phone | + [...] + + | 11/02/ | Hospital | [facility] | Arlin Chou | Atrial fibrillation, | | 2019 - | Encounter | MED CTR ICU [address] | MD Anabel [address] | unspecified type | | | | [place], | [address] [place] | ([facility]); Atrial | | 11/03/ | | [place] [address] | [place] [address] | fibrillation with | | 2018 | | [phone] | [phone] | [facility] ([facility]); | | | | | | Panlobular emphysema | | | | | Natalie Reyes MD | ([facility]); Troponin | | | | | [address] | level elevated; | | | | | [place], [place] | Gastroesophageal | | | | | [address] | reflux disease, | | | | [...] + | Blood Pressure | 117/103 | 11/03/2018 9:05 PM | | | | | PST | | + + + + + | Pulse | 34 | 11/03/2018 9:10 PM | | | | | PST | | + + + + + | Temperature | 36.7 C (98.1 F) | 11/03/2018 9:10 PM | | | | | PST | | + + + + + | Respiratory Rate | 20 | 11/03/2018 9:05 PM | | | | | PST | | + + + + + | Oxygen Saturation | 96% | 11/03/2018 9:10 PM | | | | | PST | | + + + + + | Inhaled Oxygen | - | - | | | Concentration | | | | + + + + + | Weight | 90.7 kg (199 lb 15.3 | 11/03/2018 7:31 AM | | | | oz) | PST | | + + + + + | Height | 175.3 cm (5' 9") | 11/03/2018 7:31 AM | | | | | PST | | + + + + + | Body Mass Index | 29.53 | 11/03/2018 7:31 AM | | | | | PST [...] Discharge Summaries Natalie Reyes MD - 11/03/2018 6:47 PM PST [place], [place] HOSPITALIST DISCHARGE SUMMARY Pt. Name/Age/: Taurus [...] right heart systolic function. Prior echo in 2016 with normal EF. Patient was seen by [facility] Cardiology in March 2018 and had nucl [...] Verma graciously accepting patient for transfer to [facility] for higher LOC. DISCHARGE MEDICATIONS: N/A as [...] Take 50 mg by mouth Daily. 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 Electronically signed by: Natalie Reyes MD, 11/03/2018 18:47 [facility] documented in this enco unter Medications at Time of Discharge + + [...] Progress Notes Eva Meza RN - 11/03/2018 4:04 PM PSTVascular Access Team Note- Following Infusion Nurses [...] Eva Meza RN 11/03/2018 16:04 Natalie Martino MD - 11/03/2018 8:30 AM PST [place], [place] HOSPITALIST PROGRESS NOTE Patient: Taurus Domínguez : 1965: Age: 53 y.o. MedRec: [id number] Admission date: 11/02/2018 Hospital day # : [...] 110s-120s. TSH within normal limits. Echo pending. [id number] sc ore 3, warranting anticoag (prior stroke, [...] rate under better control. Patient reports that radha pennington has had a stress test years ago [...] showed normal EF. Patient was seen by [facility] Cardiology in March 2018; patient reported drinking [...] mL 3 mL Nebulization RT Q6H PRN Alrin Chou MD 3 mL at 11/03/18 0718 [...] tablet 40 mEq 40 mEq Oral Once Natalie Reyes MD Current Infusions: dilTIAZem 15 mg/hr [...] Procedure Component Value Units Date/Time Culture, MRSA [[id number]] Collected: 11/02/18 1800 Order Status: Sent Lab Status: In process Updated: 11/02/181908 Specimen: Tissue from Nares Radiology results (more choices using dot risresults) No results found. Vitals Ranges: Temp: [36.2 C (97.2 F)-37.2 C (99 F)] 36.2 C (97.2 F) Pulse: [89-113] 98 Resp: [11] 22 BP: (113-141)/(87-114) 127/107 Vitals: Temp: 36.2 C (97.2 F) BP: (!) 127/107 Pulse: 98 Resp: 22 SpO2: 93 % SpO2 93 % on room air at flow rate L/min Natalie Reyes MD 11/03/2018 8:[address] [facility] documented in this enco unter Plan of Treatment +--------+---------+ + + + | Date | Type | Specialty | Care Team | Description | +--------+---------+ + + + | 09/30/ | Office | Cardiology | Samm Malik, | | | 2019 | Visit | | [address] | | | | | | [place] | | | | | | [id number] | | | | | | | | +--------+---------+ + + + | 01/28/ | Office | Cardiology | Juan Vannesa | | 2019 | Visit | | SHIRA Garcia [address] | | | | | | [address] | | | | | | [place] [address] | | | | | | [phone] | | | | | | | [...] for this | | | e | 6:10 PM | | procedure are in the | | | | PST | | results section. | + +--------+ + + + | XR CHEST AP PORTABLE | STAT | 11/03/2018 | | Results for this | | | | 6:03 PM | | procedure are in the | | | | PST | | results section. | + +--------+ + + + | POC BLOOD GASES | Routin | 11/03/2018 | | Results for this | | | e | 6:01 PM | | procedure are in the | | | | PST | | results section. | + +--------+ + + + | EXTRA PLAIN RED TOP | Routin | 11/03/2018 | | Results for this | | | e | 4:50 PM | | procedure are in the | | | | PST | | results section. | + +--------+ + + + | EXTRA GREEN TOP TUBE | Routin | 11/03/2018 | | Results for this | | | e | 4:50 PM | | procedure are in the | | | | PST | | results section. | + +--------+ + + + | EXTRA GOLD TOP TUBE | Routin | 11/03/2018 | | Results for this | | | e | 4:50 PM | | procedure are in the | | | | PST | | results section. | + +--------+ + + + | CULTURE, BLOOD | STAT | 11/03/2018 | | Results for this | | | | 4:32 PM | | procedure are in the | | | | PST | | results section. | + +--------+ + + + | CULTURE, BLOOD | STAT | 11/03/2018 | | Results for this | | | | 4:30 PM | | procedure are in the | | | | PST | | results section. | + +--------+ + + + | CBC WITH | STAT | 11/03/2018 | | Results for this | | DIFFERENTIAL | | 4:30 PM | | procedure are in the | | | | PST | | results section. | + +--------+ + + + | LACTIC ACID | STAT | 11/03/2018 | | Results for this | | | | 4:30 PM | | procedure are in the | | | | PST | | results section. | + +--------+ + + + | BASIC METABOLIC | STAT | 11/03/2018 | | Results for this | | PANEL | | 4:30 PM | | procedure are in the | | | | PST | | results section. | + +--------+ + + + | XR CHEST AP PORTABLE | [facility] | 11/03/2018 | Atrial | Results for this | | | | 3:57 PM | fibrillation with | procedure are in the | | | | PST | [facility] ([facility]) | results section. | + +--------+ + + + | PROTIME INR | Add-On | 11/03/2018 | | Results for this | | | | 3:03 PM | | procedure are in the | | | | PST | | results section. | + +--------+ + + + | XR CHEST AP PORTABLE | Routin | 11/03/2018 | | Results for this | | | e | 12:58 PM | | procedure are in the | | | | PST | | results section. | + +--------+ + + + | ECG 12 LEAD | [facility] | 11/03/2018 | | Results for this | | | | 9:08 AM | | procedure are in the | | | | PST | | results section. | + +--------+ + + + | ECHO COMPLETE | Routin | 11/03/2018 | | Results for this | | | e | 8:22 AM | | procedure are in the | | | | PST | | results section. | + +--------+ + + + | LIPID PANEL | Routin | 11/03/2018 | | Results for this | | | e | 6:09 AM | | procedure are in the | | | | PST | | results section. | + +--------+ + + + | TROPONIN I | Routin | 11/03/2018 | | Results for this | | | e | 6:09 AM | | procedure are in the | | | | PST | | results section. | + +--------+ + + + | CBC WITH | Routin | 11/03/2018 | | Results for this | | DIFFERENTIAL | e | 6:09 AM | | procedure are in the | | | | PST | | results section. | + +--------+ + + + | TSH | Routin | 11/03/2018 | | Results for this | | | e | 6:09 AM | | procedure are in the | | | | PST | | results section. | + +--------+ + + + | B TYPE NATRIURETIC | Routin | 11/03/2018 | | Results for this | | PEPTIDE | e | 6:09 AM | | procedure are in the | | | | PST | | results section. | + +--------+ + + + | MAGNESIUM | Routin | 11/03/2018 | | Results for this | | | e | 6:09 AM | | procedure are in the | | | | PST | | results section. | + +--------+ + + + | COMPREHENSIVE | Routin | 11/03/2018 | | Results for this | | METABOLIC PANEL | e | 6:09 AM | | procedure are in the | | | | PST | | results section. | + +--------+ + + + | TROPONIN I | Routin | 11/03/2018 | | Results for this | | | e | 12:27 AM | | procedure are in the | | | | PST | | results section. | + +--------+ + + + | DRUGS OF ABUSE, | Routin | 11/03/2018 | | Results for this | | SCREEN, URINE | e | 12:22 AM | | procedure are in the | | | | PST | | results section. | + +--------+ + + + | TROPONIN I | Routin | 11/02/2018 | | Results for this | | | e | 6:33 PM | | procedure are in the | | | | PST | | results section. | + +--------+ + + + | CULTURE, MRSA | Routin | 11/02/2018 | | Results for this | | | e | 6:00 PM | | procedure are in the [...] this encounter Results ECG 12 lead (11/03/2018 6:10 PM PST) + + + + + [...] | | | | SUSANNAH CUI MD ([id number]) | | | | | | on [...] + + XR Chest AP Portable (11/03/2018 6:03 PM PST) + + | Specimen | [...] | Osmin, Rad Results In - 11/04/2018 10:03 AM PST XR CHEST AP PORTABLE 11/03/2018 5:53 [...] +---------+ + + POC Blood Gases (11/03/2018 6:01 PM PST) + + + + + + | Component | Value | Ref Range | Performed | Pathologist | | | | | At | Signature | + + + + + + | Specimen | Artery | | [facility] | | | Source | | | [facility] | | [...] Excess, POC | | mmol/L | [facility] | | | | | | [facility] | | | | | | CENTER - | | | | | | LABORATORY | | + + + + + + | Base | -5.6 (L) | -2.0 - 3.0 | [facility] | | | Excess, | | mmol/L | [facility] | | | Extracellul | | | [...] + + + + + + | pO2, POC | 45.8 (L) | 60 - 750.0 mmHg | [facility] | | | | [...] + | [facility] | [address] | [place] | [phone] | | [facility] | | [address] | | | - LABORATORY | | | | + + + + + Extra Plain Red Top Tube (11/03/2018 4:50 PM PST) + +-------+ + + + | Component | Value | Ref Range | Performed | Pathologist | | | | | At | Signature | + +-------+ + + + | Extra Plain | Done | | [facility] | | | Red Top | | | [facility] | | | Tube | | | [...] [address] | [place] | [phone] | | [facility] | | [address] | | | - LABORATORY | | | | + + + + + Extra Green Top Tube (11/03/2018 4:50 PM PST) + +-------+ + + + | Component | Value | Ref Range | Performed | Pathologist | | | | | At | Signature | + +-------+ + + + | Extra Green | Done | | [facility] | | | Top Tube | | | [facility] | | | | | | [...] + + + + | [facility] | [address] | [place] | [phone] | | [facility] | | [address] | | | - LABORATORY | | | | + + + + + Extra Gold Top Tube (11/03/2018 4:50 PM PST) + +-------+ + + + | Component | Value | Ref Range | Performed | Pathologist | | | | | At | Signature | + +-------+ + + + | Extra Gold | Done | | [facility] | | | Top Tube | | | [facility] | | | | | | MEDICAL [...] [address] | [place] | [phone] | | [facility] | | [address] | | | - LABORATORY | | | | + + + + + Culture, Blood (11/03/2018 4:32 PM PST) + + + + + [...] + | [facility] | [address] | [place] | [phone] | | [facility] | | [address] | | | - LABORATORY | | | | + + + + + Basic Metabolic Panel (11/03/2018 4:30 PM PST) + +---------+ + + + | Component | Value | Ref Range | Performed | Pathologist | | | | | At | Signature | + +---------+ + + + | Na | 131 (L) | 136 - 145 | [facility] | | | | | mmol/L | [facility] | | | | | | [...] [facility] | | | | [facility] | | | | | | [facility]ICAL | | | | | | CENTER - | | | | | | LABORATORY | | + +---------+ + + + | BUN | 18 | 9 - 23 mg/dL | [facility] | | | | | | [facility] | | | | | | [facility] | | | | | | CENTER - | | | | | | LABORATORY | | + +---------+ + + + | Creatinine | 1.26 | 0.70 - 1.30 | [facility] | | | | | mg/dL | [facility] | | | | | | MEDICAL | | | | | | CENTER - | | | | | | LABORATORY | | + +---------+ + + + | eGFR if not | 59 (L) | >=60 | [facility] | | | | | mL/min/1.73m2 | [facility] | | | [facility] | | | MEDICAL | | | | | | CENTER - | | | | | | LABORATORY | | + +---------+ + + + | Calcium | 9.8 | 8.7 - 10.4 | [facility] | | | | | mg/dL | [facility] | | | | | | MEDICAL | | | | | | CENTER - | | | | | | LABORATORY | | + +---------+ + + + | BUN/Creatin | 14.3 | | [facility] | | | ine Ratio | | | [facility] | | [...] + | [facility] | [address] | [place] | [phone] | | [facility] | | [address] | | | - LABORATORY | | | | + + + + + CBC with Differential (11/03/2018 4:30 PM PST) + + + + + + | Component | Value | Ref Range | Performed | Pathologist | | | | | At | Signature | + + + + + + | WBC | 13.2 (H) | 4.0 - 11.0 K/uL | [facility] | | | | | | [facility] [...] | | | | g/dL | [facility] | | | | [...] | | Count | | | [facility] | | [...] | | Neutrophils | | | [facility] | | | | | | MEDICAL | | | | | | CENTER - | | | | | | LABORATORY | | + + + + + + | % | 9.0 (L) | 20.0 - 45.0 % | [facility] | | | Lymphocytes | | | [facility] | | [...] | | Eosinophils | | | [facility] | | | | | | MEDICAL | | | | | | CENTER - | | | | | | LABORATORY | | + + + + + + | % Basophils | 0.2 | 0.0 - 1.0 % | [facility] | | | | | | [facility] | | | | | | MEDICAL | | | | | | CENTER - | | | | | | LABORATORY | | + + + + + + | % Immature | 0.6 (H)Comment: | 0.0 - 0.4 % | [facility] | | | Granulocyte | Preliminary studIes have | | [facility] | | | s | indicated the [...] | Neutrophils | | K/uL | [facility] | | | | | | MEDICAL | | | | | | CENTER - | | | | | | LABORATORY | | + + + + + + | Absolute | 1.19 | 0.60 - 3.20 | [facility] | | | Lymphocytes | | K/uL | [facility] | | | | | | MEDICAL | | | | | | CENTER - | | | | | | LABORATORY | | + + + + + + | Absolute | 0.85 | 0.00 - 1.00 | [facility] | | | Monocytes | | K/uL | [facility] | | | | | | MEDICAL | | | | | | CENTER - | | | | | | LABORATORY | | + + + + + + | Absolute | 0.01 | 0.00 - 0.40 | [facility] | | | Eosinophils | | K/uL | [facility] | | | | | | MEDICAL | | | | | | CENTER - | | | | | | LABORATORY | | + + + + + + | Absolute | 0.03 | 0.00 - 0.10 | [facility] | | | Basophils | | K/uL | [facility] | | | | | | MEDICAL | | | | | | CENTER - | | | | | | LABORATORY | | + + + + + + | Absolute | 0.08 (H) | 0.00 - 0.03 | [facility] | | | Immature | | K/uL | [facility] | | | Granulocyte | | | MEDICAL | | | s | | | CENTER - | | | | | | LABORATORY | | + + + + + + | % nRBC | 0 | 0 - 2 per 100 | [facility] | | | | | WBC's | [facility] | | | | | | MEDICAL | | | | | | CENTER - | | | | | | LABORATORY | | + + + + + + | Absolute | 0.00 | 0.00 - 0.01 | [facility] | | | nRBC | | K/uL | [facility] | | | | [...] + | [facility] | [address] | [place] | [phone] | | [facility] | | [address] | | | - LABORATORY | | | | + + + + + Lactic Acid (11/03/2018 4:30 PM PST) + + + + + + | Component | Value | Ref Range | Performed | Pathologist | | | | | At | Signature | + + + + + + | Lactate | 4.9 ()Comment: | 0.5 - 2.2 | [facility] | | | | Critical Result called | mmol/L | [facility] | | | | to and read [...] [address] | [place] | [phone] | | [facility] | | [address] | | | - LABORATORY | | | | + + + + + Culture, Blood (11/03/2018 4:30 PM PST) + + + + + + | Component | Value | Ref Range | Performed | Pathologist | | | | | At | Signature | + + + + + + | Culture | No growth after 5 days | | [facility] | | | | incubation. | | [facility] | | | | | | MEDICAL [...] + | [facility] | [address] | [place] | [phone] | | [facility] | | [address] | | | - LABORATORY | | | | + + + + + XR Chest AP Portable (11/03/2018 3:57 PM PST) + + | Specimen | [...] RIGHT APPROACH PICC TERMINATING AT THE LEVEL | | | OF THE CAVOATRIAL JUNCTION. 2. SIMILAR ENLARGEMENT OF THE | | | CARDIAC SILHOUETTE AND PROMINENCE OF THE CENTRAL PULMONARY | | | VASCULATURE WITH NON-SPECIFIC RIGHT GREATER THAN LEFT BASILAR OPACITY | | | AND NEWLY VISIBLE SMALL RIGHT PLEURAL EFFUSION. Dictated and | | | Signed by: Lázaro Melo MD Electronically signed: 11/03/2018 3:57 PM | | | | | + + + + + | Procedure Note | + + | Osmin, Rad Results In - 11/03/2018 4:01 PM PST SINGLE AP CHEST 11/03/2018 3:37 PM [...] + +---------+ + + Protime INR (11/03/2018 3:03 PM PST) + + + + + [...] | | | Oral Anticoagulation | | [facility] | | | | Range: 2.0 [...] + + | Performing | Address | City/State[facility] | Phone Number | | Organization | | | | + + + + + | [facility] | [address] | [place] | [phone] | | [facility] | | [address] | | | - LABORATORY | | | | + + + + + XR Chest AP Portable (11/03/2018 12:58 PM PST) + + | Specimen | [...] | Osmin, Rad Results In - 11/03/2018 4:03 PM PST SINGLE AP CHEST 11/03/2018 12:50 PM [...] + + ECG 12 lead (11/03/2018 9:08 AM PST) + + + + + [...] | | | | SUSANNAH CUI MD ([id number]) | | | | | | on [...] +---------+ + + ECHO Complete (11/03/2018 8:22 AM PST) + +---------+ + + + | [...] +---------+ + + Lipid Panel (11/03/2018 6:09 AM PST) + +--------+ + + + | Component | Value | Ref Range | Performed | Pathologist | | | | | At | Signature | + +--------+ + + + | Triglycerid | 68 | <=150 mg/dL | [facility] | | | es | | | [facility] | | | | | | MEDICAL | | | | | | CENTER - | | | | | | LABORATORY | | + +--------+ + + + | Cholesterol | 166 | <=200 mg/dL | [facility] | | | | | | [facility] | | | | | | MEDICAL | | | | | | CENTER - | | | | | | LABORATORY | | + +--------+ + + + | HDL | 74 (H) | 40 - 60 mg/dL | [facility] | | | | | | [facility] | | | | | | MEDICAL | | | | | | CENTER - | | | | | | LABORATORY | | + +--------+ + + + | Chol/HDL | 2.2 | | [facility] | | | Ratio | | | [facility] | | | | | | MEDICAL | | | | | | CENTER - | | | | | | LABORATORY | | + +--------+ + + + | LDL, | 78 | <=130 mg/dL | [facility] | | | Calculated | | | [facility] | | | | | | MEDICAL [...] | + + + + + | [facility] | [address] | [place] | [phone] | | [facility] | | [address] | | | - LABORATORY | | | | + + + + + TSH (11/03/2018 6:09 AM PST) + +-------+ + + + | Component | Value | Ref Range | Performed | Pathologist | | | | | At | Signature | + +-------+ + + + | TSH | 2.12 | 0.55 - 4.78 | [facility] | | | | | uIU/mL | [facility] | | | | [...] + | [facility] | [address] | [place] | [phone] | | [facility] | | [address] | | | - LABORATORY | | | | + + + + + B Type Natriuretic Peptide (11/03/2018 6:09 AM PST) + +---------+ + + + | Component | Value | Ref Range | Performed | Pathologist | | | | | At | Signature | + +---------+ + + + | BNP | 557 (H) | <100 pg/mL | [facility] | | | | | | [facility] [...] [address] | [place] | [phone] | | [facility] | | [address] | | | - LABORATORY | | | | + + + + + Troponin I (11/03/2018 6:09 AM PST) + + + + + + | Component | Value | Ref Range | Performed | Pathologist | | | | | At | Signature | + + + + + + | Troponin I | 0.25 (H) | <0.06 ng/mL | [facility] | | | | | | [facility] [...] [address] | [place] | [phone] | | [facility] | | [address] | | | - LABORATORY | | | | + + + + + Magnesium (11/03/2018 6:09 AM PST) + +-------+ + + + | Component | Value | Ref Range | Performed | Pathologist | | | | | At | Signature | + +-------+ + + + | Magnesium | 1.8 | 1.8 - 2.5 mg/dL | [facility] | | | | | | [facility] [...] + | [facility] | [address] | [place] | [phone] | | [facility] | | [address] | | | - LABORATORY | | | | + + + + + Comprehensive Metabolic Panel (11/03/2018 6:09 AM PST) + + + + + + | Component | Value | Ref Range | Performed | Pathologist | | | | | At | Signature | + + + + + + | Na | 134 (L) | 136 - 145 | [facility] | | | | | mmol/L | [facility] | | | | | | MEDICAL | | | | | | CENTER - | | | | | | LABORATORY | | + + + + + + | K | 3.4 | 3.4 - 5.1 | [facility] | | | | | mmol/L | [facility] | | | | [...] [facility] | | | | | | [facility] [...] | | | | | mL/min/1.73m2 | [facility] | | | [facility] | | | MEDICAL | | | | | | CENTER - | | | | | | LABORATORY | | + + + + + + | Calcium | 9.6 | 8.7 - 10.4 | [facility] | | | | | mg/dL | [facility] | | | | [...] | | Total | | | [facility] | | | | | | MEDICAL | | | | | | CENTER - | | | | | | LABORATORY | | + + + + + + | Total | 5.7 | 5.7 - 8.2 g/dL | [facility] | | | Protein | | | [facility] | | [...] | | Phosphatase | | | [facility] | | [...] | bulin Ratio | | | [facility] | | | | | | MEDICAL | | | | | | CENTER - | | | | | | LABORATORY | | + + + + + + | BUN/Creatin | 20.6 | | [facility] | | | ine Ratio | | | [facility] | | | | | | [...] [address] | [place] | [phone] | | [facility] | | [address] | | | - LABORATORY | | | | + + + + + CBC with Differential (11/03/2018 6:09 AM PST) + + + + + [...] | | | | M/uL | [facility] | | | | [...] | | | | g/dL | [facility] | | | | [...] | | Count | | | [facility] | | [...] | | Neutrophils | | | [facility] | | | | | | MEDICAL | | | | | | CENTER - | | | | | | LABORATORY | | + + + + + + | % | 10.9 (L) | 20.0 - 45.0 % | [facility] | | | Lymphocytes | | | [facility] | | [...] | | Eosinophils | | | [facility] | | [...] Granulocyte | Preliminary studIes have | | [facility] | | | s | indicated the [...] | | Neutrophils | | K/uL | [facility] | | | | | | MEDICAL | | | | | | CENTER - | | | | | | LABORATORY | | + + + + + + | Absolute | 1.14 | 0.60 - 3.20 | [facility] | | | Lymphocytes | | K/uL | [facility] | | | | | | MEDICAL | | | | | | CENTER - | | | | | | LABORATORY | | + + + + + + | Absolute | 1.09 (H) | 0.00 - 1.00 | [facility] | | | Monocytes | | K/uL | [facility] | [...] | | | | WBC's | [facility] | | | | | | MEDICAL | | | | | | CENTER - | | | | | | LABORATORY | | + + + + + + | Absolute | 0.00 | 0.00 - 0.01 | [facility] | | | nRBC | | K/uL | [facility] | | | | [...] + | [facility] | [address] | [place] | [phone] | | [facility] | | [address] | | | - LABORATORY | | | | + + + + + Troponin I (11/03/2018 12:27 AM PST) + + + + + + | Component | Value | Ref Range | Performed | Pathologist | | | | | At | Signature | + + + + + + | Troponin I | 0.31 (H) | <0.06 ng/mL | [facility] | | | | | | [facility] [...] [address] | [place] | [phone] | | [facility] | | [address] | | | - LABORATORY | | | | + + + + + Drugs of Abuse, Screen, Urine (11/03/2018 12:22 AM PST) + + + + + + | Component | Value | Ref Range | Performed | Pathologist | | | | | At | Signature | + + + + + + | Amphetamine | Negative | Negative | [facility] | | | Screen, | | | [facility] | | | Urine | | | MEDICAL | | | | | | CENTER - | | | | | | LABORATORY | | + + + + + + | Barbiturate | Negative | Negative | [facility] | | | s Screen, | | | [facility] | | | Urine | | | MEDICAL | | | | | | CENTER - | | | | | | LABORATORY | | + + + + + + | Benzodiazep | Negative | Negative | [facility] | | | sirisha | | | [facility] | | | Screen, | | | MEDICAL | | | Urine | | | CENTER - | | | | | | LABORATORY | | + + + + + + | Cannabinoid | Positive (A) | Negative | [facility] | | | s Screen, | | | [facility] | | | Urine | | | MEDICAL | | | | | | CENTER - | | | | | | LABORATORY | | + + + + + + | Cocaine | Negative | Negative | [facility] | | | Screen, | | | [facility] | | | Urine | | | MEDICAL | | | | | | CENTER - | | | | | | LABORATORY | | + + + + + + | Methadone | Negative | Negative | [facility] | | | Screen, | | | [facility] | | | Urine | | | MEDICAL | | | | | | CENTER - | | | | | | LABORATORY | | + + + + + + | Opiates | Positive (A) | Negative | [facility] | | | Screen, | | | [facility] | | | Urine | | | [...] [address] | [place] | [phone] | | [facility] | | [id number] | | | - LABORATORY | | | | + + + + + Troponin I (11/02/2018 6:33 PM PST) + + + + + + | Component | Value | Ref Range | Performed | Pathologist | | | | | At | Signature | + + + + + + | Troponin I | 0.29 (H) | <0.06 ng/mL | [facility] | | | | | | [facility] | | | | | | MEDICAL [...] ST. | [address] | [place], [place] | [phone] | | [facility] | | [address] | | | - LABORATORY | | | | + + + + + Culture, MRSA (11/02/2018 6:00 PM PST) + + + + + + | Component | Value | Ref Range | Performed | Pathologist | | | | | At | Signature | + + + + + + | Culture | Negative for MRSA by | | [facility] | | | | chromogenic agar method | | [facility] | | | | | [facility] - | | | | | | LABORATORY | | + + + + + + + + | Specimen | + + | Tissue - Both | | anterior nares (body | | structure) | + + + + + + + | Performing | Address | City/State/Zipcode | Phone Number | | Organization | | | | + + + + + | [facility] | [address] | [place] | [phone] | | [facility] | | [address] | | | - LABORATORY | | | | + + + + + IMAGING REPORT - EXTERNAL SCAN (11/02/2018 12:00 AM PST) + + + | Narrative | Performed At | + + + | Ordered by an | | | unspecified provider. | | + + + IMAGING REPORT - EXTERNAL SCAN (11/02/2018 12:00 AM PST) + + + | Narrative | Performed At | + + + | Ordered by an | | | unspecified provider. | | + + + IMAGING REPORT - EXTERNAL SCAN (11/02/2018 12:00 AM PST) + + + | Narrative | Performed At | + + + | Ordered by an | | | unspecified provider. | | + + + ECG - EXTERNAL SCAN (11/02/2018 12:00 AM PST) + + + | Narrative | Performed At | + + + | Ordered by an | | | unspecified provider. | | + + + documented in this encounter Visit Diagnoses + + | Diagnosis | + + | Atrial fibrillation, unspecified type (HCC) | + + | Atrial fibrillation with RVR ([facility]) Atrial fibrillation | + + | Panlobular emphysema (HCC) Other emphysema | + + | Troponin level elevated Other abnormal blood chemistry | + + | Gastroesophageal reflux disease, esophagitis presence not specified | + + | Chronic atrial fibrillation [...] +-------+------+------+ | albuterol-ipratropium 2.5-0.5 | Given | 03/03/20 | 3 mLs | | | | mg/3 mL nebulizer solution 3 mL | | 19 4:10 | | | | | 3 mL, Nebulization, RT EVERY 6 | | PM PST | | | | | HOURS PRN, Shortness of Breath, | | | | | | | Starting 11/02/18 at 1819 | | | | | | + +--------+ +-------+------+------+ +-------+ +-------+---+---+ | Given | 11/04/19 | 3 mLs | | | | | 19 11:42 | | | | | | AM PST | | | | +-------+ +-------+---+---+ | Given | 11/04/19 | 3 mLs | | | | | 19 7:18 | | | | | | AM PST | | | | +-------+ +-------+---+---+ +---+---+ | | | +---+---+ + +---------+ + +-------+---+ | amiodarone in dextrose | New Bag | 11/04/19 | 1 mg/min | 33.3 | | | (NEXTERONE) 1.8 mg/mL infusion 1 | | 19 11:41 | | mL/hr | | | mg/min (33.3333 mL/hr, rounded | | AM PST | | | | | to 33.3 mL/hr), at 33.3 mL/hr, | | | | | | | Intravenous, TITRATED, Starting | | | | | | | 11/03/18 at 1100, For 6 hours, | [...] 150 mg 150 mg, Intravenous, | | AM PST | | | | | Administer [...] dose on 11/03/18 at 0900 | | AM PST | | | | + +-------+ +------+---+---+ +---+---+ | | | +---+---+ + +-------+ +-------+---+---+ | aspirin EC tablet 81 mg 81 mg, | Given | 11/04/19 | 81 mg | | | | Oral, DAILY, First dose (after | | 19 8:46 | | | | | last modification) on 11/03/18 | | AM PST | | | | | at 0900, Do not cut or crush., | | | | | | + +-------+ +-------+---+---+ +---+---+ | | | +---+---+ + +-------+ +------+---+---+ | atropine 0.1 mg/mL syringe 1 mg | Given | 11/04/19 | 1 mg | | | | 1 mg, Intravenous, ONCE, Sun | | 19 5:15 | | | | | 11/03/18 at 1715, For 1 dose | | PM PST | | | | + +-------+ +------+---+---+ +---+---+ | | | +---+---+ + +-------+ +-------+---+---+ | carvedilol (COREG) tablet 25 mg | Given | 11/04/19 | 25 mg | | | | 25 mg, Oral, ONCE, 11/03/18 | | 19 10:12 | | | | | at 1000, For 1 dose | | AM PST | | | | + +-------+ +-------+---+---+ +---+---+ | | | +---+---+ + +---------+ +-----+-------+---+ | cefTRIAXone (ROCEPHIN) 1 g in | New Bag | 11/04/19 | 1 g | 100 | | | sodium chloride 0.9% 50 mL IVPB | | 19 4:30 | | mL/hr | | | 1 g, Intravenous, Administer over | | PM PST | | | | | 30 [...] | infusion 5-15 mg/hr (5-15 | | AM PST | | | | | mL/hr), [...] + + +---+ | Rate/Dose Change | 20 | 15 mg/hr | 15 mL/hr | | | | 19 6:00 | | | | | | AM PST | | | | + + + + +---+ | Rate/Dose Change | 20 | 10 mg/hr | 10 mL/hr | | | | 19 12:20 | | | | | | AM PST | | | | + + + + +---+ +---+---+ | | | +---+---+ + + + + + +---+ | DOPamine in dextrose 1,600 | Rate/Dos | 11/04/19 | 10 | 34 mL/hr | | | mcg/mL infusion 5 mcg/kg/min | e Change | 19 8:56 | mcg/kg/m | | | | 90.7 kg (17.0063 mL/hr, rounded | | PM PST | in | | | | [...] | 40.8 | | | | 19 8:32 | mcg/kg/m | mL/hr | | | | PM PST | in | | | + + + +-------+---+ | Rate/Dose Change | 11/04/19 | 14 | 47.6 | | | | 19 8:26 | mcg/kg/m | mL/hr | | | | PM PST | in | | | + + + +-------+---+ +---+---+ | | | +---+---+ + +-------+ +-------+---+ + | enoxaparin (LOVENOX) 40 mg/0.4 | Given | 11/04/19 | 40 mg | | Abdomen- | | mL injection 40 mg 40 mg, | | 19 4:44 | | | LUQ | | Subcutaneous, EVERY 24 HOURS | | PM PST | | | | | INTERVAL, First dose on Sun | | | | | | | 11/03/18 at 1600 | | | | | | + +-------+ +-------+---+ + +---+---+ | | | +---+---+ + + + +---------+-------+---+ | EPINEPHrine 16 mcg/mL in sodium | Rate/Dos | 11/04/19 | 5 | 18.8 | | | chloride 0.9% 250 mL infusion | e Change | 19 7:24 | mcg/min | mL/hr | | | 1-10 mcg/min (3.75-37.5 mL/hr, | | PM PST | | | | | rounded [...] | 3.8 | | | | 19 7:10 | mcg/min | mL/hr | | | | PM PST | | | | +---------+ +---------+-------+---+ +---+---+ | | | +---+---+ + +-------+ +-------+---+---+ | etomidate (AMIDATE) injection | Given | 11/04/19 | 20 mg | | | | 20 mg 20 mg, Intravenous, ONCE, | | 19 5:29 | | | | | 11/03/18 at 1845, For 1 dose | | PM PST | | | | + +-------+ +-------+---+---+ +---+---+ | | | +---+---+ + +-------+ +---------+---+---+ | fentaNYL (PF) injection 25-100 | Given | 11/04/19 | 100 mcg | | | | mcg 25-100 mcg, Intravenous, | | 19 9:27 | | | | | EVERY 5 MIN PRN, Pain, Starting | | PM PST | | | | | 11/03/18 at 1742, To maximum of | | | | | | | 400 mcg in 4 hours, | | | | | | + +-------+ +---------+---+---+ +-------+ +---------+---+---+ | Given | 11/04/19 | 100 mcg | | | | | 19 8:32 | | | | | | PM PST | | | | +-------+ +---------+---+---+ | Given | 11/04/19 | 50 mcg | | | | | 19 8:10 | | | | | | PM PST | | | | +-------+ +---------+---+---+ [...] at 1100, For 1 dose | | AM PST | | | | + +-------+ +-------+---+---+ +---+---+ | | | +---+---+ + +-------+ +--------+---+---+ | lisinopril (PRINIVIL, ZESTRIL) | Given | 11/04/19 | 2.5 mg | | | | tablet 2.5 mg 2.5 mg, Oral, | | 19 11:22 | | | | | DAILY, First dose on 11/03/18 | | AM PST | | | | | at [...] | Administer over 120 Minutes, | | AM PST | | | | | ONCE, 11/03/18 at 0800, For 1 | | [...] mL 2-15 | e Change | 19 9:20 | | | | | mg/hr (2-15 mL/hr), at 2-15 | | PM PST | | | | | mL/hr, [...] 10 mL/hr | | | | 19 8:40 | | | | | | PM PST | | | | + + + + +---+ | Rate/Dose Change | 11/04/19 | 9 mg/hr | 9 mL/hr | | | | 19 8:34 | | | | | | PM PST | | | | + + [...] (LEVOPHED) 16 mcg/mL infusion | | 19 9:08 | mcg/min | mL/hr | | | 1-30 mcg/min (3.75-112.5 mL/hr, | | PM PST | | | | | rounded [...] | 112.5 | | | | 19 5:30 | mcg/min | mL/hr | | | | PM PST | | | | + + +---------+--------+---+ | Rate/Dose Change | 11/04/19 | 25 | 93.8 | | | | 19 5:11 | mcg/min | mL/hr | | | | PM PST | | | | + + +---------+--------+---+ +---+---+ | | | +---+---+ + +-------+ +-------+---+---+ | pantoprazole (PROTONIX) DR | Given | 11/04/19 | 40 mg | | | | tablet 40 mg 40 mg, Oral, DAILY | | 19 8:54 | | | | | BEFORE BREAKFAST, First dose on | | AM PST | | | | | 11/03/18 [...] Oral, ONCE, 11/03/18 at 0800, | | AM PST | | | | | For 1 dose | | | | | | + +-------+ +--------+---+---+ +---+---+ | | | +---+---+ + +---------+ +---------+-------+---+ | sodium chloride 0.9% (NS) bolus | New Bag | 11/04/19 | 250 mLs | 250 | | | 250 mL 250 mL, Intravenous, | | 19 2:34 | | mL/hr | | | Administer over 1 Hours, ONCE, | | PM PST | | | | | 11/03/18 at 1445, For 1 dose | | | | | | + +---------+ +---------+-------+---+ +---+---+ | | | +---+---+ + +-------+ +--------+---+---+ | succinylcholine (ANECTINE) | Given | 11/04/19 | 100 mg | | | | injection 100 mg 100 mg, | | 19 5:30 | | | | | Intravenous, ONCE, 11/03/18 at | | PM PST | | | | | 1730, [...] 10 mg, Intravenous, ONCE, | | 19 5:35 | | | | | 11/03/18 at 1745, For 1 dose, | | PM PST | | | | | Mix [...]
--- OUTSIDE RECORDS SUMMARY | ~2019-09-04 | XMS | Encounter Summary ---
Demographics + + + | Address | [address] | | | [place] [address] | + + + | Home Phone | | + + + | Preferred Language | Unknown | + + + | Marital Status | Unknown | + + + | Religion Affiliation | Unknown | + + + | Race | Unknown | + + + | Ethnic Group | Unknown | + + + Author + + + | Author | [facility] | | | and [place] | + + + | Organization | [facility] | | | and [place] | + + + | Address | Unknown | + + + | Phone | Unavailable | + + + Support + + + + + | Name | Relationship | Address | Phone | + + + + + | Taurus Salinas | ECON | [place] | | | | | [address] | | + + + + + | Detailed Message | ECON | Unknown | | + + + + + Care Team Providers + +------+ + | Care Glass Products Inspector Name | Role | Phone | [...] + + | 05/06/ | Telephone | [facility] | Danielle Meredith, | Referral (Malik | | 2019 | | CARDIOLOGY [place] | Cashier Payments Received | Scheduling) | | | | [address] | | | | | | [place], [place] | | | | | | [address] | | | | | | [phone] | | | +--------+ + + + [...] | | | | | [place] [address] | | | | | | [phone] | | | | | | | | +--------+---------+ + + + documented as of this encounter Visit Diagnoses Not on filedocumented in this encounter"
--- OUTSIDE RECORDS SUMMARY | ~2019-09-04 | XMS | Encounter Summary ---
Demographics + + + | Address | [address] | | | [place] [address] | + + + | Home Phone | | + + + | Preferred Language | Unknown | + + + | Marital Status | Unknown | + + + | Anglican Affiliation | Unknown | + + + [...] [place] | | | | | [address] | | + + + + + | Detailed Message | ECON | Unknown | | + + + + + Care Team Providers + +------+ + | Care Gaming Investigator Name | Role | Phone | + [...] + + | 08/30/ | Telephone | [facility] | Glen Dahl MD | EGD | | 2017 | | GASTROENTEROLOGY | [address] | | | | | [address] [facility] | [place], [place] | | | | | [address] [place], [place] | [address] | | | | | [address] | [phone] | | | | | [phone] | | | +--------+ + + + [...] [place] | | | | | | [address] | | | | | | | | +--------+---------+ + + + | 01/28/ | Office | Cardiology | Vannesa Martinez | | | 2019 | Visit | | [address] | | | | | | [address] | | | | | | [place] [address] | | | | | | [phone] | | | | | | | | +--------+---------+ + + + documented as of this encounter Visit Diagnoses Not on filedocumented in this encounter"
--- OUTSIDE RECORDS SUMMARY | ~2019-09-04 | XMS | Encounter Summary ---
Demographics + + + | Address | [address] | | | [place] [address] | + + + | Home Phone | | + + + | Preferred Language | Unknown | + + + | Marital Status | Unknown | + + + | Zoroastrian Affiliation | Unknown | + + + | Race | Unknown | + + + | Ethnic Group | Unknown | + + + Author + + + | Author | [facility] | | | and [place] | + + + | Organization | [facility] | | | and [place] | + + + | Address | Unknown | + + + | Phone | Unavailable | + + + Support + + + + + | Name | Relationship | Address | Phone | + + + + + | Taurus Salinas | ECON | [place] | | | | | [address] | | + + + + + | Detailed Message | ECON | Unknown | | + + + + + Care Team Providers + +------+ + | Care Office Employee Name | Role | Phone | + +------+ + | Kenny Hernandez DO | PCP | | + +------+ + Encounter Details +--------+ + + + + | Date | Type | Department | Care Team | Description | +--------+ + + + + | 05/25/ | Orders Only | [facility] | Glen Dahl MD | Gastroesophageal | | 2017 | | GASTROENTEROLOGY | [address] [facility] | reflux disease with | | | | [address] [facility] | [place], [place] | esophagitis (Primary | | | | [address] [place] | [address] | Dx) | | | | [address] | [phone] | | | | | [phone] | | | +--------+ + + + [...] documented as of this encounter Progress Notes Gris Sargent RN - 05/25/2017 4:[address] Nabila Garcia 20 mg twice a day #80 with 2 refills ordered at patient's pharmacy [facility]. Per his procedure note repeat upp er endoscopy in 4 months to check healing and for surveillance on pathology results.Tristan hicks signed by Gris Sargent RN at 05/25/2017 4:44 PM PDTdocumented in this encoun ter Plan of Treatment +--------+---------+ + + + | Date | Type | Specialty | Care Team | Description | +--------+---------+ + + + | 09/30/ | Office | Cardiology | Samm Malik, | | | 2019 | Visit | | MD [address] | | | | | | [place] | | | | | | [address] | | | | | | | | +--------+---------+ + + + | 01/28/ | Office | Cardiology | Vannesa Martinez | | | 2019 | Visit | | [address] | | | | | | [address] | | | | | | [place] [address] | | | | | | [phone] | | | | | | | | +--------+---------+ + + + documented as of this encounter Visit Diagnoses + + | Diagnosis | + + | Gastroesophageal reflux disease with esophagitis - Primary | + + documented in this encounter"
--- OUTSIDE RECORDS SUMMARY | ~2019-09-04 | XMS | Encounter Summary ---
Demographics + + + | Address | [address] | | | [place] [address] | + + + | Home Phone | | + + + | Preferred Language | Unknown | + + + | Marital Status | Unknown | + + + | Moravian Affiliation | Unknown | + + + | Race | Unknown | + + + | Ethnic Group | Unknown | + + + Author + + + | Author | [facility] | | | and [place] | + + + | Organization | [facility] | | | and [place] | + + + | Address | Unknown | + + + | Phone | Unavailable | + + + Support + + + + + | Name | Relationship | Address | Phone | + + + + + | Taurus Salinas | ECON | [place] | | | | | [address] | | + + + + + | Detailed Message | ECON | Unknown | | + + + + + Care Team Providers + +------+ + | Care Laborer Wharf Name | Role | Phone | + +------+ + | Kenny Hernandez DO | PCP | | + +------+ + Reason for Visit +--------+ + | Reason | Comments | +--------+ + | Other | labs | +--------+ + Encounter Details +--------+ + + + + | Date | Type | Department | Care Team | Description | +--------+ + + + + | 06/21/ | Telephone | [facility] | [place], | Other (labs) | | 2016 | | GASTROENTEROLOGY | [address] | | | | | [address] [place] | [place], [place] [address] | | | | | [address] [place], [place] | [place] | | | | | [address] | [address] | | | | | [phone] | | | +--------+ + + + [...] [place] | | | | | | [address] | | | | | | | | +--------+---------+ + + + | 01/28/ | Office | Cardiology | Vannesa Martinez | | | 2019 | Visit | | [address] | | | | | | [address] | | | | | | [place] [address] | | | | | | [phone] | | | | | | | | +--------+---------+ + + + documented as of this encounter Visit Diagnoses Not on filedocumented in this encounter"
--- OUTSIDE RECORDS SUMMARY | ~2019-09-04 | XMS | Encounter Summary ---
Demographics + + + | Address | [address] | | | [place] [address] | + + + | Home Phone | | + + + | Preferred Language | Unknown | + + + | Marital Status | Unknown | + + + | Bahai Affiliation | Unknown | + + + [...] | [place] | | | | | [address] | | + + + + + | Detailed Message | ECON | Unknown | | + + + + + Care Team Providers + +------+ + | Care Classroom Instructional Aide Name | Role | Phone | + [...] + + | 11/02/ | Hospital | [facility] | Arlin Chou | Atrial fibrillation, | | 2019 - | Encounter | [facility] ICU [address] | MD Anabel [address] | unspecified type | | | | [place], | [address] [place] | ([facility]); Atrial | | 11/03/ | | [place] [address] | [place] [address] | fibrillation with | | 2018 | | [phone] | [phone] | RVR ([facility]); | | | | | | Panlobular emphysema | | | | | Natalie Reyes MD | ([facility]); Troponin | | | | | [address] | level elevated; | | | | | [place], [place] | Gastroesophageal | | | | | [address] | reflux disease, | | | | [...] Reyes MD - 11/03/2018 6:47 PM PST [place] HOSPITALIST DISCHARGE SUMMARY Pt. Name/Age/: Taurus [...] with normal EF. Patient was seen by [facility] Cardiology in March 2018 and had nucl [...] Verma graciously accepting patient for transfer to [facility] for higher LOC. DISCHARGE MEDICATIONS: N/A as [...] AND DISCHARGE INSTRUCTIONS: Patient is transferring to [facility] for higher level of care, 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 Electronically signed by: Natalie Reyes MD, 11/03/2018 18:47 [facility] documented in this enco unter Medications at [...] Martino MD - 11/03/2018 8:30 AM PST [place] HOSPITALIST PROGRESS NOTE Patient: Taurus Domínguez : 1965: Age: 53 y.o. MedRec: [id number] Admission date: 11/02/2018 Hospital day # : [...] 110s-120s. TSH within normal limits. Echo pending. [id number] sc ore 3, warranting anticoag (prior stroke, [...] showed normal EF. Patient was seen by [facility] Cardiology in March 2018; patient reported drinking [...] Procedure Component Value Units Date/Time Culture, MRSA [[id number]] Collected: 11/02/18 1800 Order Status: Sent Lab [...] rate L/min Natalie Reyes MD 11/03/2018 8:30 [facility] documented in this enco unter Plan of Treatment +--------+---------+ + + + | Date | Type | Specialty | Care Team | Description | +--------+---------+ + + + | 09/30/ | Office | Cardiology | Samm Malik, | | | 2019 | Visit | | [address] | | | | | | [place] | | | | | | [id number] | | | | | | | | +--------+---------+ + + + | 01/28/ | Office | Cardiology | Juan Vannesa | | 2019 | Visit | | [address] | | | | | | [address] | | | | | | [place] [address] | | | | | | [phone] | | | | | | | [...] | | | | PST | [facility] ([facility]) | results section. | + +--------+ + [...] | | | | SUSANNAH CUI MD ([id number]) | | | | | | on [...] + | [facility] | [address] | [place] | [phone] | | [facility] | | [address] | | | - LABORATORY | | [...] [address] | [place] | [phone] | | [facility] | | [address] | | | - LABORATORY | | [...] | + + + + + | [facility] | [address] | [place] | [phone] | | [facility] | | [address] | | | - LABORATORY | | [...] | [employer] | | | [facility] | | | | | | MEDICAL [...] [address] | [place] | [phone] | | [facility] | | [address] | | | - LABORATORY | | [...] + | [facility] | [address] | [place] | [phone] | | [facility] | | [address] | | | - LABORATORY | | [...] | mL/min/1.73m2 | [place] | | | [facility] | | | MEDICAL | | | [...] + | [facility] | [address] | [place] | [phone] | | [facility] | | [address] | | | - LABORATORY | | [...] + | [facility] | [address] | [place] | [phone] | | [facility] | | [address] | | | - LABORATORY | | [...] [address] | [place] | [phone] | | [facility] | | [address] | | | - LABORATORY | | [...] | | | | incubation. | | [facility] | | | | | | MEDICAL [...] + | [facility] | [address] | [place] | [phone] | | [facility] | | [address] | | | - LABORATORY | | [...] + + | Performing | Address | City/State/[facility] | Phone Number | | Organization | | | | + + + + + | [facility] | [address] | [place] | [phone] | | [facility] | | [address] | | | - LABORATORY | | [...] | | | | SUSANNAH CUI MD ([id number]) | | | | | | on [...] | | Calculated | | | [facility] | | [address] | [place] | [phone] | | [facility] | | [address] | | | - LABORATORY | | [...] + | [facility] | [address] | [place] | [phone] | | [facility] | | [address] | | | - LABORATORY | | [...] [address] | [place] | [phone] | | [facility] | | [address] | | | - LABORATORY | | [...] [address] | [place] | [phone] | | [facility] | | [address] | | | - LABORATORY | | [...] + | [facility] | [address] | [place] | [phone] | | [facility] | | [address] | | | - LABORATORY | | [...] mL/min/1.73m2 | [facility] | | | [place] | | | MEDICAL | | | [...] [address] | [place] | [phone] | | [facility] | | [address] | | | - LABORATORY | | [...] + | [facility] | [address] | [place] | [phone] | | [facility] | | [address] | | | - LABORATORY | | [...] [address] | [place] | [phone] | | [facility] | | [address] | | | - LABORATORY | | [...] [address] | [place] | [phone] | | [facility] | | [address] | | | - LABORATORY | | [...] | | | | | | [facility] | | | | | | MEDICAL [...] ST. | [address] | [place], [place] | [phone] | | [facility] | | [address] | | | - LABORATORY | | [...] [address] | [place] | [phone] | | [facility] | | [address] | | | - LABORATORY | | [...] + + | Atrial fibrillation with RVR ([facility]) Atrial fibrillation | + + | Panlobular [...]
--- OUTSIDE RECORDS SUMMARY | ~2019-09-04 | XMS | Encounter Summary ---
Demographics + + + | Address | [address] | | | [place] [address] | + + + | Home Phone | | + + + | Preferred Language | Unknown | + + + | Marital Status | Unknown | + + + | Muslim Affiliation | Unknown | + + + | Race | Unknown | + + + | Ethnic Group | Unknown | + + + Author + + + | Author | [facility] | | | and [place] | + + + | Organization | [facility] | | | and [place] | + + + | Address | Unknown | + + + | Phone | Unavailable | + + + Support + + + + + | Name | Relationship | Address | Phone | + + + + + | Taurus Salinas | ECON | [place] | | | | | [address] | | + + + + + | Detailed Message | ECON | Unknown | | + + + + + Care Team Providers + +------+ + | Care Constitutional Law Professor Name | Role | Phone | [...] + + | 11/02/ | Hospital | [facility] | Arlin Chou | Atrial fibrillation, | | 2019 - | Encounter | [facility] ICU [address] | MD Anabel [address] | unspecified type | | | | [place], | [address] [place] | ([facility]); Atrial | | 11/03/ | | [place] [address] | [place] [address] | fibrillation with | | 2018 | | [phone] | [phone] | RVR ([facility]); | | | | | | Panlobular emphysema | | | | | Natalie Reyes MD | ([facility]); Troponin | | | | | [address] | level elevated; | | | | | [place], [place] | Gastroesophageal | | | | | [address] | reflux disease, | | | | [...] Reyes MD - 11/03/2018 6:47 PM PST [place], [place] HOSPITALIST DISCHARGE SUMMARY Pt. Name/Age/: Taurus [...] with normal EF. Patient was seen by [facility] Cardiology in March 2018 and [...] Verma graciously accepting patient for transfer to [facility] for higher LOC. 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 Electronically signed by: Natalie Reyes MD, 11/03/2018 18:47 [facility] documented in this enco unter Medications [...] Martino MD - 11/03/2018 8:30 AM PST [place], [place] HOSPITALIST PROGRESS NOTE Patient: Taurus Domínguez : 1965: Age: 53 y.o. MedRec: [id number] Admission date: 11/02/2018 Hospital day # : [...] 110s-120s. TSH within normal limits. Echo pending. [id number] sc ore 3, warranting anticoag (prior stroke, [...] showed normal EF. Patient was seen by [facility] Cardiology in March 2018; patient [...] Procedure Component Value Units Date/Time Culture, MRSA [[id number]] Collected: 11/02/18 1800 Order Status: Sent Lab [...] rate L/min Natalie Reyes MD 11/03/2018 8:30 [facility] documented in this enco unter Plan of Treatment +--------+---------+ + + + | Date | Type | Specialty | Care Team | Description | +--------+---------+ + + + | 09/30/ | Office | Cardiology | Samm Malik, | | | 2019 | Visit | | [address] | | | | | | [place] | | | | | | [id number] | | | | | | | | +--------+---------+ + + + | 01/28/ | Office | Cardiology | Juan Vannesa | | 2019 | Visit | | SHIRA Garcia [address] | | | | | | [address] | | | | | | [place] [address] | | | | | | [phone] | | | | | | | [...] | | | | PST | RVR ([facility]) | results section. | + +--------+ + [...] | | | | SUSANNAH CUI MD ([id number]) | | | | | | on [...] + | [facility] | [address] | [place] | [phone] | | [facility] | | [address] | | | - LABORATORY | | [...] [address] | [place] | [phone] | | [facility] | | [address] | | | - LABORATORY | | [...] | + + + + + | [facility] | [address] | [place] | [phone] | | [facility] | | [address] | | | - LABORATORY | | [...] | [employer] Tube | | | [facility] | | | | | | MEDICAL [...] [address] | [place] | [phone] | | [facility] | | [address] | | | - LABORATORY | | [...] + | [facility] | [address] | [place] | [phone] | | [facility] | | [address] | | | - LABORATORY | | [...] | mL/min/1.73m2 | [place] | | | [place] | | | MEDICAL | | | [...] + | [facility] | [address] | [place] | [phone] | | [facility] | | [address] | | | - LABORATORY | | [...] + | [facility] | [address] | [place] | [phone] | | [facility] | | [address] | | | - LABORATORY | | [...] [address] | [place] | [phone] | | [facility] | | [address] | | | - LABORATORY | | [...] | | | | incubation. | | [facility] | | | | | | MEDICAL [...] + | [facility] | [address] | [place] | [phone] | | [facility] | | [address] | | | - LABORATORY | | [...] + + | Performing | Address | City/State/[facility] | Phone Number | | Organization | | | | + + + + + | [facility] | [address] | [place] | [phone] | | [facility] | | [address] | | | - LABORATORY | | [...] | | | | SUSANNAH CUI MD ([id number]) | | | | | | on [...] [address] | [place] | [phone] | | [facility] | | [address] | | | - LABORATORY | | [...] + | [facility] | [address] | [place] | [phone] | | [facility] | | [address] | | | - LABORATORY | | [...] [address] | [place] | [phone] | | [facility] | | [address] | | | - LABORATORY | | [...] [address] | [place] | [phone] | | [facility] | | [address] | | | - LABORATORY | | [...] + | [facility] | [address] | [place] | [phone] | | [facility] | | [address] | | | - LABORATORY | | [...] mL/min/1.73m2 | [facility] | | | [place] | | | MEDICAL | | | [...] [address] | [place] | [phone] | | [facility] | | [address] | | | - LABORATORY | | [...] | Lymphocytes | | K/uL | STNathan BENIOT | | | | | | MEDICAL [...] + | [facility] | [address] | [place] | [phone] | | [facility] | | [address] | | | - LABORATORY | | [...] [address] | [place] | [phone] | | [facility] | | [address] | | | - LABORATORY | | [...] [address] | [place] | [phone] | | [facility] | | [address] | | | - LABORATORY | | [...] | | | | | | [facility] | | | | | | MEDICAL [...] ST. | [address] | [place], [place] | [phone] | | [facility] | | [address] | | | - LABORATORY | | [...] [address] | [place] | [phone] | | [facility] | | [address] | | | - LABORATORY | | [...] + + | Atrial fibrillation with RVR ([facility]) Atrial fibrillation | + + | Panlobular [...]
--- OUTSIDE RECORDS SUMMARY | ~2019-09-04 | XMS | Encounter Summary ---
Demographics + + + | Address | [address] | | | [place] [address] | + + + | Home Phone | | + + + | Preferred Language | Unknown | + + + | Marital Status | Unknown | + + + | Mandaen Affiliation | Unknown | + + + | Race | Unknown | + + + | Ethnic Group | Unknown | + + + Author + + + | Author | [facility] | | | and [place] | + + + | Organization | [facility] | | | and [place] | + + + | Address | Unknown | + + + | Phone | Unavailable | + + + Support + + + + + | Name | Relationship | Address | Phone | + + + + + | Taurus Salinas | ECON | [place] | | | | | [phone] | | + + + + + | Detailed Message | ECON | Unknown | | + + + + + Care Team Providers + +------+ + | Care Banquet Manager Name | Role | Phone | [...] | | | | | | | Gastroesopha | | | | | | | geal reflux | | | | | | | disease, | | | | | | | esophagitis | | | | | | | presence not | | | | | | | specified | | | | | | | (K21.9), | | | | | | | Dysphagia, | | | | | | | unspecified | | | | | | | type | | | | | | | (R13.10), | | | | | | | Elevated | | | | | | | LFTs | | | | | | | (R94.5), | | | | | | | Hiccups | | | | | | | (R06.6), | | | | | | | ETOH abuse | | | | | | | (F10.10), | | | | | | | Special | | | | | | | screening | | | | | | | for | | | | | | | malignant | | | | | | | neoplasms, | | | | | | | colon | | | | | | | (Z12.11), | | | | | | | History of | | | | | | | | | | | | | | methamphetam | | | | | | | ine abuse | | | | | | | (Z87.898) | | | | | | | Procedures | | | | | | | NM | | | | | | | ESOPHAGOGAST | | | | | | | RODUODENOSCO | | | | | | | PY TRANSORAL | | | | | | | DIAGNOSTIC | | | | | | | NM EGD | | | | | | | TRANSORAL | | | | | | | BIOPSY | | | | | | | SINGLE/MULTI | | | | | | | PLE NM | | | | | | | COLONOSCOPY | | | | | | | FLX DX | | | | | | | W/COLLJ SPEC | | | | | | | WHEN PFRMD | | | | | | | NM | | | | | | | COLONOSCOPY | | | | | | | W/BIOPSY | | | | | | | SINGLE/MULTI | | | | | | | PLE NM | | | | | | | COLSC FLX | | | | | | | W/RMVL OF | | | | | | | TUMOR POLYP | | | | | | | LESION SNARE | | | | | | | TQ NM | | | | | | | ANESTH,UGI | | | | | | | ENDOSCOPY | | | | | | | NM | | | | | | | ANESTH,INTES | | | | | | | MARYANA,SCOPE,L | | | | | | | OW EGD | | | | | | | COLONOSCOPY | | | +--------+--------+ + + + + Encounter Details +--------+---------+ + + + | Date | Type | Department | Care Team | Description | +--------+---------+ + + + | 05/25/ | Surgery | [facility] | Glen Dahl MD | EGD | | 2017 | | [facility] | [address] | | | | | [address] | [place], [place] | | | | | [place] | [address] | | | | | [address] | [phone] | | | | | [phone] | | | +--------+---------+ + + + Social History [...] + + + | Blood Pressure | 138/75 | 05/25/2017 2:15 PM | | | | | PDT | | + + + + + | Pulse | 75 | 05/25/2017 2:15 PM | | | | | PDT | | + + + + + | Temperature | 36.6 C (97.9 F) | 05/25/2017 1:59 PM | | | | | PDT | | + + + + + | Respiratory Rate | 16 | 05/25/2017 1:59 PM | | | | | PDT | | + + + + + | Oxygen Saturation | 98% | 05/25/2017 2:15 PM | | | | | PDT | | + + + + + | Inhaled Oxygen | - | - | | | Concentration | | | | + + + + + | Weight | 91.5 kg (201 lb 12.8 | 05/25/2017 12:03 PM | | | | oz) | PDT | | + + + + + | Height | 175.3 cm (5' 9") | 05/25/2017 12:03 PM | | | | | PDT | | + + + + + | Body Mass Index | 29.8 | 05/25/2017 12:03 PM | | | | | PDT | | + + + + + documented in this encounter Discharge Instructions Instructions Glen Dahl MD - 05/24/2017Patient Discharge Instructions after an Endosco py Procedure ? You may resume your regular diet after discharge. ? Do not drive, operate machinery, make critical decisions or do activities that require co ordination or balance for 24hrs. ? Resume normal medications unless otherwise instructed. ? If biopsies were taken, the physician s office will contact you within 7-10 days. ? If a colonoscopy was performed, then you may continue to expel large amounts of air from your rectum. Please call the physician who did your procedure at [phone] if you have any questions or experience any of the following: ? Increasing abdominal pain, nausea, or vomiting. ? Chills and fever over 101F. ? New abdominal swelling or bloating. ? Signs of rectal bleeding (black or red stool). If you cannot get a hold of your physician, then call the [facility] [phone] . If necessary, report to the Emergency Department at [facility]. Quit smoking: If you smoke or have smoked within the last year, quitting is the most import ant thing you can do to protect and improve your health. documented in this encounter Medications at Time of [...] +---------+ + + | amLODIPine | Take 10 mg by mouth | | 0 | | | | (NORVASC) 10 MG | Daily. | | | | 8 | | tablet | | | | | | + + + +---------+ + + | aspirin 325 mg | aspirin Tab ( 325 | | 0 | 10/10/19 | | | tablet | mg) 1 TABLET PO | | | 11 | 9 | | | Daily | | | | | + + + +---------+ + + | aspirin 81 mg | Take 81 mg by mouth | | 0 | | | | chewable tablet | once. | | | | 8 | + + + +---------+ + + | carvedilol (COREG) | Take 25 mg by mouth | | 0 | | | | 25 mg tablet | 2 times daily. | | | | 8 | + + + +---------+ + + | hydrALAZINE | hydralazine Tab ( 50 | | 0 | 03/15/20 | | | (APRESOLINE) 50 MG | mg) 1 TABLET PO qid | | | 11 | 9 | | tablet | | | | | | + + + +---------+ + + | hydrALAZINE | Take 50 mg by mouth | | 0 | | | | (APRESOLINE) 50 MG | 4 times daily. | | | | 8 | | tablet | | | | [...] + + | losartan (COZAAR) | Take 100 mg by mouth | | 0 | | | | 100 MG tablet | Daily. | | | | 8 | + + + +---------+ + + [...] | | | | | [place] | | | | | | [address] | | | | | | | | +--------+---------+ + + + | 01/28/ | Office | Cardiology | Vannesa Martinez | | | 2019 | Visit | | [address]IR[address] | | | | | | [address] | | | | | | [facility] [place] [address] | | | | | | [phone] | | | | | | | | +--------+---------+ + + + documented as of this encounter Procedures + +--------+ + + + | Procedure Name | Priori | Date/Time | Associated Diagnosis | Comments | | | ty | | | | + +--------+ + + + | COLONOSCOPY | | 05/25/2017 | Gastroesophageal | | | | | 1:08 PM | reflux disease, | | | | | PDT | esophagitis presence | | | | | | not specified | | | | | | (K21.9), Dysphagia, | | | | | | unspecified type | | | | | | (R13.10), Elevated | | | | | | LFTs (R94.5), | | | | | | Hiccups (R06.6), | | | | | | ETOH abuse (F10.10), | | | | | | Special screening | | | | | | for malignant | | | | | | neoplasms, colon | | | | | | (Z12.11), History of | | | | | | methamphetamine | | | | | | abuse (Z87.898) | | + +--------+ + + + | EGD | | 05/25/2017 | Gastroesophageal | | | | | 1:08 PM | reflux disease, | | | | | PDT | esophagitis presence | | | | | | not specified | | | | | | (K21.9), Dysphagia, | | | | | | unspecified type | | | | | | (R13.10), Elevated | | | | | | LFTs (R94.5), | | | | | | Hiccups (R06.6), | | | | | | ETOH abuse (F10.10), | | | | | | Special screening | | | | | | for malignant | | | | | | neoplasms, colon | | | | | | (Z12.11), History of | | | | | | methamphetamine | | | | | | abuse (Z87.898) | | + +--------+ + + + | EGD | Routin | 05/25/2017 | | Results for this | | | e | 1:01 PM | | procedure are in the | | | | PDT | | results section. | + +--------+ + + + | COLONOSCOPY | Routin | 05/25/2017 | | Results for this | | | e | 1:00 PM | | procedure are in the | | | | PDT | | results section. | + +--------+ + + + | SURGICAL PATHOLOGY | Routin | 05/25/2017 | | Results for this | | EXAM | e | 12:00 AM | | procedure are in the | | | | PDT | | results section. | + +--------+ + + + documented in this encounter Results EGD (05/25/2017 1:01 PM PDT) + + | Specimen | + + | | + + + + -+ | Narrative | Performed At | + + -+ | | [facility] | | GastroenterologyPatient Name: Taurus AlmontelProcedure Date: 05/25/2017 | [facility] | | 1:01 PMMRN: [id number] #: [id number] of : | | | 1965Admit Type: AmbulatoryAge: 52Room: [facility] 02Gender: MaleNote | | | Status: FinalizedAttending MD: MONSE Rickrocedure: | | | Upper GI endoscopyIndications: Dysphagia, Suspected | | | esophageal reflux, Nausea with | | | vomitingProviders: Glen Dahl MD, Adriane Arita, | | | RN, Dong Bartlett CMA, MARK PORTILLO | | | DO DILIP (Anesthesia Staff)Referring MD: Mykel Hernandez DO | | | (Referring MD)Medicines: Monitored Anesthesia | | | CareComplications: No immediate complications.Procedure: | | | Pre-Anesthesia Assessment: - Prior to the procedure, a History | | | and Physical was performed, and patient medications and | | | allergies were reviewed. The patient is competent. The risks | | | and benefits of the procedure and the sedation options and | | | risks were discussed with the patient. All questions were | | | answered and informed consent was obtained. Patient identification and | | | proposed procedure were verified by the physician, the nurse, | | | the anesthesiologist and the engineering laboratory technician in the pre-procedure | | | area in the endoscopy suite. Mental Status Examination: alert | | | and oriented. Airway Examination: normal oropharyngeal airway | | | and neck mobility. Respiratory Examination: clear to | | | auscultation. CV Examination: normal. Prophylactic Antibiotics: | | | The patient does not require prophylactic antibiotics. Prior | | | Anticoagulants: The patient has taken no previous anticoagulant or | | | antiplatelet agents. ASA Grade Assessment: III - A patient with | | | severe systemic disease. After reviewing the risks and | | | benefits, the patient was deemed in satisfactory condition to | | | undergo the procedure. The anesthesia plan was to use monitored | | | anesthesia care (MAC). Immediately prior to administration of | | | medications, the patient was re-assessed for adequacy to | | | receive sedatives. The heart rate, respiratory rate, oxygen | | | saturations, blood pressure, adequacy of pulmonary ventilation, and | | | response to care were monitored throughout the procedure. The | | | physical status of the patient was re-assessed after the | | | procedure. After obtaining informed consent, the endoscope was | | | passed under direct vision. Throughout the procedure, the | | | patient's blood pressure, pulse, and oxygen saturations were | | | monitored continuously. The Endoscope was introduced through | | | the mouth, and advanced to the third part of duodenum. The | | | upper GI endoscopy was accomplished without difficulty. The | | | patient tolerated the procedure well.Findings: LA Grade D (one | | | or more mucosal breaks involving at least 75% of esophageal | | | circumference) esophagitis with no bleeding was found. Biopsies | | | were taken with a cold forceps for histology. Verification of | | | patient identification for the specimen was done by the physician and | | | nurse using the patient's name and date. Estimated blood | | | loss was minimal. Diffuse mildly erythematous mucosa | | | without bleeding was found in the entire examined stomach. | | | Biopsies were taken with a cold forceps for histology. | | | Verification of patient identification for the specimen was | | | done by the physician and nurse using the patient's name and | | | date. Estimated blood loss was minimal. No other | | | significant abnormalities were identified in a careful | | | examination of the stomach. The cardia and gastric fundus were | | | normal on retroflexion. Patchy mildly erythematous mucosa | | | without active bleeding and with no stigmata of bleeding was | | | found in the duodenal bulb. Biopsies were taken with a cold | | | forceps for histology. Verification of patient identification | | | for the specimen was done by the physician and nurse using the | | | patient's name and date. Estimated blood loss was | | | minimal.Impression: - LA Grade D reflux esophagitis. Biopsied. | | | - Erythematous mucosa in the stomach. Biopsied. - | | | Erythematous duodenopathy. Biopsied.Recommendation: - Patient | | | has a contact number available for emergencies. The signs and | | | symptoms of potential delayed complications were discussed with the | | | patient. Return to normal activities tomorrow. Written discharge | | | instructions were provided to the patient. - High fiber | | | diet indefinitely. - Continue present medications. - Await | | | pathology results. - Repeat upper endoscopy in 4 months to | | | check healing and for surveillance based on pathology results. | | | - Return to GI clinic PRN. - No aspirin, ibuprofen, | | | naproxen, or other non-steroidal anti-inflammatory drugs. | | | - The findings and recommendations were discussed with the | | | patient.Glen Dahl MD05/25/2017 1:54:31 PMThis report has been | | | signed electronically.Number of Addenda: 0Note Initiated On: 05/25/2017 | | | 1:01 PMTotal Procedure Duration: 0 hours 12 minutes 8 seconds Scope | | | In: 1:14:56 PMScope Out: 1:27:04 PM [facility] | | | [place], [address] [place] [id number] | | | - Continue present medications. | | | - Await pathology results. | | | - Repeat upper endoscopy in 4 months to check healing and for | | | surveillance based on pathology results. | | | - Return to GI clinic PRN. | | | - No aspirin, ibuprofen, naproxen, or other non-steroidal | | | anti-inflammatory drugs. | | | - The findings and recommendations were discussed with the patient. | | |Glen Dahl MD | | |05/25/2017 1:54:31 PM | | |This report has been signed electronically. | | |Number of Addenda: 0 | | |Note Initiated On: 05/25/2017 1:01 PM | | |Total Procedure Duration: 0 hours 12 minutes 8 seconds | | |Scope In: 1:14:56 PM | | |Scope Out: 1:27:04 PM | | | [facility], [address] [place] [address] | | | [id number] | | + + -+ + +---------+ + + | Performing | Address | City/State/[facility] Centercode | Phone Number | | Organization | | | | + +---------+ + + | [facility] | | | | + +---------+ + + COLONOSCOPY (05/25/2017 1:00 PM PDT) + + | Specimen | + + | | + + + + -+ | Narrative | Performed At | + + -+ | | [facility] | | GastroenterologyPatient Name: Taurus AlmontelProcedure Date: 05/25/2017 | [facility] | | 1:00 PMMRN: [id number] #: [id number] of : | | | 1965Admit Type: AmbulatoryAge: 52Room: [facility] 02Gender: MaleNote | | | Status: FinalizedAttending MD: Glen Dahl , [facility]rocedure: | | | ColonoscopyIndications: Screening for colorectal | | | malignant neoplasmProviders: Glen Dahl MD, Adriane | | | JASON Arita, Dong Bartlett CMA, | | | MARK CHERRY DO (Anesthesia Staff)Referring MD: | | | Mykel Hernandez DO (Referring MD)Medicines: Monitored | | | Anesthesia CareComplications: No immediate | | | complications.Procedure: Pre-Anesthesia Assessment: - | | | Prior to the procedure, a History and Physical was performed, and | | | patient medications and allergies were reviewed. The patient is | | | competent. The risks and benefits of the procedure and the | | | sedation options and risks were discussed with the patient. All | | | questions were answered and informed consent was obtained. | | | Patient identification and proposed procedure were verified by | | | the physician, the nurse, the anesthesiologist and the | | | engineering laboratory technician in the pre-procedure area in the endoscopy suite. | | | Mental Status Examination: alert and oriented. Airway | | | Examination: normal oropharyngeal airway and neck mobility. | | | Respiratory Examination: clear to auscultation. CV Examination: | | | normal. Prophylactic Antibiotics: The patient does not require | | | prophylactic antibiotics. Prior Anticoagulants: The patient | | | has taken no previous anticoagulant or antiplatelet agents. ASA | | | Grade Assessment: III - A patient with severe systemic | | | disease. After reviewing the risks and benefits, the patient | | | was deemed in satisfactory condition to undergo the procedure. The | | | anesthesia plan was to use monitored anesthesia care (MAC). | | | Immediately prior to administration of medications, the patient | | | was re-assessed for adequacy to receive sedatives. The heart | | | rate, respiratory rate, oxygen saturations, blood pressure, | | | adequacy of pulmonary ventilation, and response to care were | | | monitored throughout the procedure. The physical status of the | | | patient was re-assessed after the procedure. After I obtained | | | informed consent, the scope was passed under direct vision. | | | Throughout the procedure, the patient's blood pressure, pulse, | | | and oxygen saturations were monitored continuously. The Colonoscope | | | was introduced through the anus and advanced to the cecum, | | | identified by appendiceal orifice and ileocecal valve. The | | | colonoscopy was performed without difficulty. The patient | | | tolerated the procedure well. The quality of the bowel | | | preparation was adequate to identify polyps 6 mm and larger in | | | size.Findings: The perianal and digital rectal examinations were | | | normal. Six sessile polyps were found in the rectum, sigmoid | | | colon and cecum. The polyps were 3 to 6 mm in size. These | | | polyps were removed with a hot snare. Resection and retrieval | | | were complete. Verification of patient identification for the | | | specimen was done by the physician and nurse using the | | | patient's name and date. Estimated blood loss was | | | minimal. A few small-mouthed diverticula were found in the | | | sigmoid colon. No other significant abnormalities were | | | identified in a careful examination of the remainder of the | | | colon. Biopsies for histology were taken with a cold forceps | | | from the right colon, left colon and transverse colon for | | | evaluation of microscopic colitis. No other significant | | | abnormalities were identified in a careful examination of the | | | remainder of the colon. The retroflexed view of the distal | | | rectum and anal verge was normal and showed no anal or rectal | | | abnormalities.Impression: - Six 3 to 6 mm polyps in the rectum, | | | in the sigmoid colon and in the cecum, removed with a hot | | | snare. Resected and retrieved. - Diverticulosis in the sigmoid | | | colon. - The distal rectum and anal verge are normal on | | | retroflexion view. - Biopsies were taken with a cold forceps | | | from the right colon, left colon and transverse colon for | | | evaluation of microscopic colitis.Recommendation: - Patient has | | | a contact number available for emergencies. The signs and | | | symptoms of potential delayed complications were discussed with the | | | patient. Return to normal activities tomorrow. Written discharge | | | instructions were provided to the patient. - Resume | | | previous diet. - Continue present medications. - Await | | | pathology results. - Repeat colonoscopy for surveillance based | | | on pathology results. - Return to GI clinic PRN. - No | | | aspirin, ibuprofen, naproxen, or other non-steroidal | | | anti-inflammatory drugs. - The findings and recommendations were | | | discussed with the patient.Glen Dahl MD05/25/2017 1:58:18 | | | PMThis report has been signed electronically.Number of Addenda: 0Note | | | Initiated On: 05/25/2017 1:00 PM [facility] | | | [place], [address] [place] [id number] | | | - Resume previous diet. | | | - Continue present medications. | | | - Await pathology results. | | | - Repeat colonoscopy for surveillance based on pathology results. | | | - Return to GI clinic PRN. | | | - No aspirin, ibuprofen, naproxen, or other non-steroidal | | | anti-inflammatory drugs. | | | - The findings and recommendations were discussed with the patient. | | |Glen Dahl MD | | |05/25/2017 1:58:18 PM | | |This report has been signed electronically. | | |Number of Addenda: 0 | | |Note Initiated On: 05/25/2017 1:00 PM | | | [facility], [address] [place] [address] | | | [id number] | | + + -+ + +---------+ + + | Performing | Address | City/State/Zipcode | Phone Number | | Organization | | | | + +---------+ + + | [facility] | | | | + +---------+ + + Surgical Pathology Exam (05/25/2017 12:00 AM PDT) + + | Specimen | + + | | + + + + + | Narrative | Performed At | + + + | SPECIMEN(S): A GASTRIC BIOPSIES SPECIMEN(S): B DUODENAL BIOPSIES | [facility] | | SPECIMEN(S): C GE JUNCTION SPECIMEN(S): D ESOPHAGEAL BIOPSIES | [facility] | | SPECIMEN(S): E CECAL POLYP SPECIMEN(S): F RANDOM COLON BIOPSIES | | | SPECIMEN(S): G SIGMOID COLON POLYPS SPECIMEN(S): H RECTAL POLYPS | | | SPECIMEN SOURCE: A. GASTRIC BIOPSIES B. DUODENAL BIOPSIES C. GE | | | JUNCTION D. ESOPHAGEAL BIOPSIES E. CECAL POLYP F. RANDOM COLON | | | BIOPSIES G. SIGMOID COLON POLYPS H. RECTAL POLYPS CLINICAL HISTORY: | | | K21.9 (gastroesophageal reflux disease without esophagitis), R13.10 | | | (dysphagia, unspecified), R94.5 (abnormal results of liver function | | | studies), F10.10 (Alcohol abuse, uncomplicated), Z12.11 (encounter | | | for screening for malignant neoplasm of colon), Z87.898 (Personal | | | history of other specified conditions) MICROSCOPIC DESCRIPTION: | | | Histologic sections of all submitted blocks are examined by light | | | microscopy. These findings, together with the gross examination, | | | support the pathologic diagnosis. D. A PAS-D stain is performed on | | | block (D1) with appropriate controls and is negative for fungal | | | organisms. JVR:[facility] FINAL PATHOLOGIC DIAGNOSIS: A. Gastric biopsies: | | | - Gastric-type mucosa with focal mild chronic gastritis and focal | | | slight fundic gland polyp formation. - Negative for unequivocal | | | evidence of Helicobacter organisms on routine HE stained sections. B. | | | Duodenal biopsies: - Duodenal mucosa with focal acute duodenitis. | | | - Preserved villous architecture, negative for evidence of celiac | | | disease (see comment). C. GE junction, biopsy: - Gastric-type | | | mucosa with reactive epithelial features and mild chronic | | | inflammation, negative for specialized intestinal metaplasia or | | | definite dysplasia. D. Esophageal biopsies: - Esophageal mucosa | | | with focal acute esophagitis with epithelial erosion. - Fungal | | | stains are negative for organisms. E. Cecal polyp, biopsy: - | | | Tubular adenoma (two fragments). F. Random colon biopsies: - | | | Benign colonic mucosa, negative for specific diagnostic abnormality. | | | G. Sigmoid colon polyps, biopsy: - Tubular adenoma (two | | | fragments). - Hyperplastic polyps (three fragments). H. Rectal | | | polyps, biopsy: - Hyperplastic polyps COMMENT: B. The histologic | | | features are primarily those of focal chronic active duodenitis. These | | | findings may represent so-called "peptic duodenitis", and may be | | | associated with Helicobacter pylori infection, peptic ulcer disease, | | | chronic active gastritis, etcetera. Clinical correlation is requested. | | | JVR:[facility]:C2NR GROSS DESCRIPTION: The specimen is received in eight | | | parts. A. The specimen is labeled "Taurus Domínguez" and designated | | | "gastric bxs" on the requisition. Received in formalin are four de león | | | colored tissue fragments, 0.25-0.5 cm, all into (A1). B. The specimen | | | is labeled "Faina Domínguezy Ro" and designated "duodenal bxs" on the | | | requisition. Received in formalin are five de león colored tissue | | | fragments, 0.1-0.38 cm, all into (B1). C. The specimen is labeled | | | "Taurus Domínguez Ro" and designated "GE junction" on the requisition. | | | Received in formalin are two de león colored tissue fragments, 0.15-0.3 | | | cm, all into (C1). D. The specimen is labeled "Faina Domínguezy Ro" | | | and designated "esophageal bxs" on the requisition. Received in | | | formalin are seven cream to de león colored tissue fragments, 0.1-0.45 cm, | | | all into (D1). E. The specimen is labeled "Taurus Domínguez Ro" and | | | designated "cecal polyp" on the requisition. Received in formalin are | | | two de león colored tissue fragments, 0.3-0.4 cm, all into (E1). F. The | | | specimen is labeled "Taurus Domínguez Ro" and designated "random colon | | | bxs" on the requisition. Received in formalin are seven de león colored | | | tissue fragments, 0.25-0.3 cm, all into (F1). G. The specimen is | | | labeled "Taurus Domínguez Ro" and designated "sigmoid colon polyps" on | | | the requisition. Received in formalin are two de león to light brown | | | colored tissue fragments. The light brown color measures 0.5 x 0.5 | | | cm, depth is 0.35 cm; that one will be inked in blue and serially | | | sectioned into (G1). The de león polyp measures 0.6 x 0.8 cm, thickness is | | | 0.35 cm. That one will also be inked in blue and serially sectioned | | | into (G1) also. H. The specimen is labeled "Faina Domínguezy Ro" and | | | designated "rectal polyps" on the requisition. Received in formalin | | | are two cream de león to dark de león colored tissue fragments, 0.2-0.7 cm, | | | all into (H1). yt:JVR:bonnie PERFORMING LABORATORY: Tissue processing | | | and slide preparation were performed by [employer], [address] | [address], [address], [place] [address] (Tin Stacker: Caesar Dos Santos | Raya Su M.D. CLIA#: [id number]). Professional interpretation was | | | performed by [employer], [facility] | | | Branch, [address] [place] [address] (Tin Stacker: | | | Caesar Su M.D.; CLIA#: [id number]). Diagnostician: Caesar Reyes | | | Georges SIMONS Pathologist Electronically Signed 05/29/2017 | | + + + + +---------+ + + | Performing | Address | City/State/Zipcode | Phone Number | | Organization | | | | + +---------+ + + | [facility] | | | | | [facility] | | | | + +---------+ + + documented in this encounter Visit Diagnoses Not on filedocumented in this encounter Administered Medications + +--------+---------+------+------+------+ | Medication Order | MAR | Action | Dose | Rate | Site | | | Action | Date | | | | + +--------+---------+------+------+------+ + +---+ | albuterol 2.5 mg/3 mL nebulizer | | | solution 2.5 mg 2.5 mg, | | | Nebulization, ONCE PRN, Wheezing, | | | Starting Sun05/25/17 at 1422, | | | For 1 dose, Notify anesthesia if | | | patient is wheezing and does not | | | have a history of asthma or COPD | | | or current smoking., | | | Recovery/Phase I | | + +---+ | | | + +---+ | dextrose 50% injection 12.5-25 | | | g 12.5-25 g, Intravenous, EVERY | | | 15 MIN PRN, Low Blood Sugar, Give | | | 12.5g (25 mL) IV if blood | | | glucose 50-69 mg/dL. Give 25g | | | (50 mL) IV if blood glucose < 50, | | | Starting Sun05/25/17 at 1211, | | | Repeat in 15 min if blood glucose | | | remains < 70 mg/dL. Repeat | | | blood glucose in 30 min once | | | blood glucose > 70., Pre-op | | + +---+ | | | + +---+ | dextrose 50% injection 12.5-25 | | | g 12.5-25 g, Intravenous, EVERY | | | 15 MIN PRN, Low Blood Sugar, For | | | hypoglycemia. Give 12.5g (25ml) | | | IV if blood glucose 50-69 | | | mg/dL. Give 25g (50ml) IV if | | | blood glucose < 50, Starting Fri | | | 05/25/17 at 1422, Give over 2 min. | | | Repeat in 15 min if blood | | | glucose remains < 70 mg/dL. | | | Repeat blood glucose in 30 min | | | once blood glucose > 70., | | | Recovery/Phase I | | + +---+ | | | + +---+ + +---------+ +---+---+---+ | lactated ringers (LR) infusion | New Bag | 05/25/20 | | | | | at 100 mL/hr, Intravenous, | | 17 1:05 | | | | | CONTINUOUS, Starting 05/25/17 | | PM PDT | | | | | at 1230, Pre-op | | | | | | + +---------+ +---+---+---+ +---+---+ | | | +---+---+ + +---------+ +---+-------+--------+ | lactated ringers (LR) infusion | New Bag | 05/25/20 | | 100 | Right | | at 10-100 mL/hr, Intravenous, | | 17 12:26 | | mL/hr | Arm | | CONTINUOUS, Starting Sun05/25/17 | | PM PDT | | | | | at 1230, TKO., Pre-op | | | | | | + +---------+ +---+-------+--------+ + +---+ | | | + +---+ | ondansetron (ZOFRAN) injection | | | 4 mg 4 mg, Intravenous, PRN, | | | Nausea, Vomiting, Starting Sun | | | 05/25/17 at 1211, Pre-op | | + +---+ | | | + +---+ | ondansetron (ZOFRAN) injection | | | 4 mg 4 mg, Intravenous, ONCE | | | PRN, Nausea, Starting Sun05/25/17 | | | at 1422, For 1 dose, | | | Recovery/Phase I | | + +---+ | | | + +---+ documented in this encounter
--- OUTSIDE RECORDS SUMMARY | ~2019-09-04 | XMS | Encounter Summary ---
Demographics + + + | Address | [address] | | | [place] [address] | + + + | Home Phone | | + + + | Preferred Language | Unknown | + + + | Marital Status | Unknown | + + + | Cheondoism Affiliation | Unknown | + + + [...] [place] | | | | | [address] | | + + + + + | Detailed Message | ECON | Unknown | | + + + + + Care Team Providers + +------+ + | Care Drug Safety Data Management Specialist Name | Role | Phone | + +------+ + | Kenny Hernandez DO | PCP | | + +------+ + Encounter Details +--------+ + + + + | Date | Type | Department | Care Team | Description | +--------+ + + + + | 04/19/ | Abstract | [facility] | [facility], | | | 2016 | | GASTROENTEROLOGY | WILLE[address] | | | | | [address] | [place], [address] | | | | | [address] [place], [place] | [place], [place] | | | | | [address] | [address] | | | | | [phone] | | | +--------+ + + + [...] [place] | | | | | | [address] | | | | | | | | +--------+---------+ + + + | 01/28/ | Office | Cardiology | Vannesa Martinez | | | 2019 | Visit | | [address] | | | | | | [address] | | | | | | [place] [address] | | | | | | [phone] | | | | | | | | +--------+---------+ + + + documented as of this encounter Visit Diagnoses Not on filedocumented in this encounter"
--- OUTSIDE RECORDS SUMMARY | ~2019-09-04 | XMS | Encounter Summary ---
Demographics + + + | Address | [address] | | | [place] [address] | + + + | Home Phone | | + + + | Preferred Language | Unknown | + + + | Marital Status | Unknown | + + + | Latter Day Affiliation | Unknown | + + + | Race | Unknown | + + + | Ethnic Group | Unknown | + + + Author + + + | Author | [facility] | | | and [place] | + + + | Organization | [facility] | | | and [place] | + + + | Address | Unknown | + + + | Phone | Unavailable | + + + Support + + + + + | Name | Relationship | Address | Phone | + + + + + | Taurus Salinas | ECON | [place] | | | | | [address] | | + + + + + | Detailed Message | ECON | Unknown | | + + + + + Care Team Providers + +------+ + | Care Stereo Operator Name | Role | Phone | + +------+ + | Kenny Hernandez DO | PCP | | + +------+ + Encounter Details +--------+ + + + + | Date | Type | Department | Care Team | Description | +--------+ + + + + | 04/18/ | Documentati | [facility] | Kelsie Reddy, | | | 2019 | on | CARDIOLOGY [place] | Technologist | | | | | [address] | | | | | | [facility] [place] | | | | | | [address] | | | | | | [phone] | | | +--------+ + + + [...] [place] | | | | | | [address] | | | | | | | | +--------+---------+ + + + | 01/28/ | Office | Cardiology | Vannesa Martinez | | | 2019 | Visit | | [address] | | | | | | [address] | | | | | | [place] [address] | | | | | | [phone] | | | | | | | | +--------+---------+ + + + documented as of this encounter Visit Diagnoses Not on filedocumented in this encounter"
--- OUTSIDE RECORDS SUMMARY | ~2019-09-04 | XMS | Encounter Summary ---
Demographics + + + | Address | [address] | | | [place] [address] | + + + | Home Phone | | + + + | Preferred Language | Unknown | + + + | Marital Status | Unknown | + + + | Yazidism Affiliation | Unknown | + + + | Race | Unknown | + + + | Ethnic Group | Unknown | + + + Author + + + | Author | [facility] | | | and [place] | + + + | Organization | [facility] | | | and [place] | + + + | Address | Unknown | + + + | Phone | Unavailable | + + + Support + + + + + | Name | Relationship | Address | Phone | + + + + + | Taurus Salinas | ECON | [place] | | | | | [address] | | + + + + + | Detailed Message | ECON | Unknown | | + + + + + Care Team Providers + +------+ + | Care Sole Sewer Hand Name | Role | Phone | + [...] + + | 06/21/ | Telephone | [facility] | [place], | Other (labs) | | 2016 | | GASTROENTEROLOGY | [address] | | | | | [address] | [place], [address] | | | | | [address] [place], [place] | [place] | | | | | [address] | [address] | | | | | [phone] | | | +--------+ + + + [...] [place] | | | | | | [address] | | | | | | | | +--------+---------+ + + + | 01/28/ | Office | Cardiology | Vannesa Martinez | | | 2019 | Visit | | [address] | | | | | | [address] | | | | | | [place] [address] | | | | | | [phone] | | | | | | | | +--------+---------+ + + + documented as of this encounter Visit Diagnoses Not on filedocumented in this encounter"
--- OUTSIDE RECORDS SUMMARY | ~2019-09-04 | XMS | Encounter Summary ---
Demographics + + + | Address | [address] | | | [place] [address] | + + + | Home Phone [...] + + + | Author | [facility] | | | and [place] | + + + | Organization | [facility] | | | and [place] | + + + | Address | Unknown | + + + | Phone | Unavailable | + + + Support + + + + + | Name | Relationship | Address | Phone | + + + + + | Taurus Salinas | ECON | [place] | | | | | [address] | | + + + + + | Detailed Message | ECON | Unknown | | + + + + + Care Team Providers + +------+ + | Care Airplane Electrician Name | Role | Phone | + +------+ + PCP | Unavailable | + +------+ + Encounter Details +--------+ + + + + | Date | Type | Department | Care Team | Description | +--------+ + + + + | 12/28/ | Abstract | [facility] [place] | [place], | | | 2015 | | PULMONARY [address] | Camille Wu [place] | | | | | [place], | | | | | | [place] [address] | | | | | | [phone] | | | +--------+ + + + + Social History + + + +--------+ + | Tobacco Use | Types | Packs/Day | Years | Date | | | | | Used | | + + + +--------+ + | Former Smoker | Cigarettes | 1 | | Quit: 09/03/2010 | + + + +--------+ + + + | Comments: 1 ppd for 33 years | + + + + +---------+ + | Alcohol Use | Drinks/Week | oz/Week | Comments | + + +---------+ + | Yes | 0 Standard drinks | 0.0 | 5-10 drinks daily | | | or equivalent | | | + + +---------+ + [...] | | | | | | [place] [facility] | | | | | | [address] | | | | | | | | +--------+---------+ + + + | 01/28/ | Office | Cardiology | Vannesa Martinez | | | 2019 | Visit | | [address] | | | | | | [address] | | | | | | [place] [address] | | | | | | [phone] | | | | | | | | +--------+---------+ + + + documented as of this encounter Visit Diagnoses Not on filedocumented in this encounter"
--- OUTSIDE RECORDS SUMMARY | ~2019-09-04 | XMS | Encounter Summary ---
Demographics + + + | Address | [address] | | | [place] [address] | + + + | Home Phone | | + + + | Preferred Language | Unknown | + + + | Marital Status | Unknown | + + + | Hinduism Affiliation | Unknown | + + + | Race | Unknown | + + + | Ethnic Group | Unknown | + + + Author + + + | Author | [facility] | | | and [place] | + + + | Organization | [facility] | | | and [place] | + + + | Address | Unknown | + + + | Phone | Unavailable | + + + Support + + + + + | Name | Relationship | Address | Phone | + + + + + | Taurus Salinas | ECON | [place] | | | | | [address] | | + + + + + | Detailed Message | ECON | Unknown | | + + + + + Care Team Providers + +------+ + | Care Gas Engine Operator Name | Role | Phone | [...] | | | | unspecified | PA-C [address] | [address], | | | | | ([facility]) | ISAI [address]ar | [address] | | | | | Procedures | Ave | [place], [place] | | | | | Evaluate and | [place], | [address] Phone: | | | | | Treat | [place] | [phone] | | | | | | [address] | Fax: | | | | | | Phone: | [phone] | | | | | | [phone] | | | | | | | Fax: | | | | | | | [phone] | | +--------+ + + + + [...] | DR SAM HERNÁNDEZ, | [place] [address] | to thrombosis of | | | | [place] [address] | [phone] | cerebral artery | | | | [phone] | | (HCC) | +--------+---------+ + + [...] have the followin g tests/procedures ordered. At [facility] Brain MRI with and without contrast Carotid ultrasound Blood work for BUN/creatinine Medication Instructions: Chlorpromazine 25 mg 3 times a day *Any questions, please call Dr. Matos's office at Patient advised of their right to have diagnostic testing, health care treatment, and/or se rvices at a facility other than [facility]. documented in this encounter Progress Notes Gris Matos MD - 11/09/2017 10:30 AM PST Patient: Taurus Domínguez Medical Record: [id number] Date of Services: 11/09/2017 Referring Doctor: Kenny [...] Procedure: COLONOSCOPY; Surgeon: Glen Dahl MD; Location: [facility] UPPER GASTROINTESTINAL ENDOSCOPY N/A 05/25/2017 Procedure: EGD; Surgeon: Glen Dahl MD; Location: [facility] WOUND REPAIR 1985 [...] N/A Years of education: N/A Occupational History [employer] Social History Main Topics Smoking [...] Narrative Lives: [place] With: Karrie Grew up: [place] Has previously lived in: [place] Exposure to toxic chemicals: No Exposure [...] CEREBELLAR EXAMINATION: There is no dysmetria on jecfay-hf-wczf test. IMPRESSION: 1. 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 I will continue to follow him. [...] Dr | | | | | | [facility] | | | | | | [address] | | | | | | | | +--------+---------+ + + + | 01/28/ | Office | Cardiology | Vannesa Martinez | | | 2020 | Visit | | [address] | | | | | | [address] | | | | | | [place] [address] | | | | | | [phone] | | | | | | | | +--------+---------+ + + + documented as of this encounter Visit Diagnoses + + | Diagnosis | + + | Hiccups - Primary Hiccough | + + | Cerebrovascular accident (CVA) due to thrombosis of cerebral artery (HCC) | + + documented in this encounter
--- OUTSIDE RECORDS SUMMARY | ~2019-09-04 | XMS | Encounter Summary ---
Demographics + + + | Address | [address] | | | [place] [address] | + + + | Home Phone | | + + + | Preferred Language | Unknown | + + + | Marital Status | Unknown | + + + | Religion Affiliation | Unknown | + + + | Race | Unknown | + + + | Ethnic Group | Unknown | + + + Author + + + | Author | [facility] | | | and [place] | + + + | Organization | [facility] | | | and [place] | + + + | Address | Unknown | + + + | Phone | Unavailable | + + + Support + + + + + | Name | Relationship | Address | Phone | + + + + + | Taurus Salinas | ECON | [place] | | | | | [address] | | + + + + + | Detailed Message | ECON | Unknown | | + + + + + Care Team Providers + +------+ + | Care Community Life Director Name | Role | Phone | + +------+ + | Kenny Hernandez DO | PCP | | + +------+ + Encounter Details +--------+ + + + + | Date | Type | Department | Care Team | Description | +--------+ + + + + | 04/14/ | Orders Only | [facility] | Provider, | | | 2019 | | SYSTEM GENERIC OP | [address] | | | | | CONVERSION [address] | [address] | | | | | [address] [place], [place] | [place] [address] | | | | | [address] | | | | | | [phone] | | | +--------+ + + + [...] [place] | | | | | | [address] | | | | | | | | +--------+---------+ + + + | 01/28/ | Office | Cardiology | Vannesa Martinez | | | 2019 | Visit | | [address] | | | | | | [address] | | | | | | [place] [address] | | | | | | [phone] | | | | | | | | +--------+---------+ + + + documented as of this encounter Visit Diagnoses Not on filedocumented in this encounter"
--- OUTSIDE RECORDS SUMMARY | ~2019-09-04 | XMS | Encounter Summary ---
Demographics + + + | Address | [address] | | | [place] [address] | + + + | Home Phone | | + + + | Preferred Language | Unknown | + + + | Marital Status | Unknown | + + + | Taoist Affiliation | Unknown | + + + | Race | Unknown | + + + | Ethnic Group | Unknown | + + + Author + + + | Author | [facility] | | | and [place] | + + + | Organization | [facility] | | | and [place] | + + + | Address | Unknown | + + + | Phone | Unavailable | + + + Support + + + + + | Name | Relationship | Address | Phone | + + + + + | Taurus Salinas | ECON | [place] | | | | | [address] | | + + + + + | Detailed Message | ECON | Unknown | | + + + + + Care Team Providers + +------+ + | Care Security Support Analyst Name | Role | Phone | + [...] + + | 03/27/ | Documentati | [facility] | Kelsie Reddy, | Other (end of study) | | 2019 | on | CARDIOLOGY [place] | Technologist | | | | | [address] | | | | | | [place], [place] | | | | | | [address] | | | | | | [phone] | | | +--------+ + + + [...] Conclusion: 1. 30-day event monitor, total of [id number] recorded. 2. Patient was in atrial fibrillation. [...] | | | | | [address] [place] | | | | | | [id number] | | | | | | | | +--------+---------+ + + + | 01/28/ | Office | Cardiology | Vannesa Martinez | | | 2019 | Visit | | [address] | | | | | | [address] | | | | | | [place] [address] | | | | | | [phone] | | | | | | | | +--------+---------+ + + + documented as of this encounter Visit Diagnoses + + | Diagnosis | + + | Chronic atrial fibrillation Atrial fibrillation | + + | Chronic systolic congestive heart failure (HCC) Chronic systolic heart failure | + + documented in this encounter"
--- OUTSIDE RECORDS SUMMARY | ~2019-09-04 | XMS | Encounter Summary ---
Demographics + + + | Address | [address] | | | [place] [address] | + + + | Home Phone [...] | [place] | | | | | [address] | | + + + + + | Detailed Message | ECON | Unknown | | + + + + + Care Team Providers + +------+ + | Care Cashier Host/Hostess Name | Role | Phone | + +------+ + | Daisy Jane | PCP | | | PA-C | | | + +------+ + Encounter Details +--------+ + + + + | Date | Type | Department | Care Team | Description | +--------+ + + + + | 06/01/ | Hospital | [facility] | Conversion | Unknown cause of | | 2015 | Encounter | CONVERSION [address] | Transaction, | injury | | | | [address] | Provider Unknown | | | | | [place], [place] | [phone] | | | | | [address] | | | | | | [phone] | | | +--------+ + + + [...] | | Take 3 mLs by | 360 mL | 11 | 01/20/20 | | | albuterol-ipratropiu | nebulization every 6 | | | 16 | 7 | | m (DUONEB) 2.5-0.5 | hours as needed. | | | | | | mg/3 mL SOLN | J43.1 ANDREW: 12 months | | | | | + + [...] + + + +---------+ + + | Respiratory | Use as directed with | 1 each | 0 | 01/20/20 | | | Therapy Supplies | nebulizer | | | 16 | 7 | | (NEBULIZER | medication. Dx: | | | | | | COMPRESSOR) KIT | J43.1 ANDREW: Lifetime. | | | | | + + [...] | | | | | [place] [place], [place] | | | | | | [phone] | | | | | | | | +--------+---------+ + + + | 01/28/ | Office | Cardiology | Vannesa Martinez | | | 2019 | Visit | | [address] | | | | | | [address] | | | | | | [place] [address] | | | | | | [phone] | | | | | | | | +--------+---------+ + + + documented as of this encounter Procedures + +--------+ + + + | Procedure Name | Priori | Date/Time | Associated Diagnosis | Comments | | | ty | | | | + +--------+ + + + | CT CHEST HIGH | Routin | 03/23/2016 | | Results for this | | RESOLUTION WO | e | 2:05 PM | | procedure are in the | | CONTRAST | | PDT | | results section. | + +--------+ + + + documented in this encounter Results CT Chest High Resolution WO Contrast (03/23/2016 2:05 PM PDT) + + | Specimen | + + | | + + + + + | Narrative | Performed At | + + + | This is a non-reportable procedure without a radiologist report and | | | is used for image storage only | | + + + + + | Procedure Note | + + | David Solorio - 04/17/2019 7:27 PM PDT This is a non-reportable procedure | | without a radiologist report and isused for image storage only | + + documented in this encounter Visit Diagnoses + + | Diagnosis | + + | Unknown cause of injury Unspecified accident | + + documented in this encounter"
--- OUTSIDE RECORDS SUMMARY | ~2019-09-04 | XMS | Encounter Summary ---
Demographics + + + | Address | [address] | | | [place] [address] | + + + | Home Phone | | + + + | Preferred Language | Unknown | + + + | Marital Status | Unknown | + + + | Episcopalian Affiliation | Unknown | + + + | Race | Unknown | + + + | Ethnic Group | Unknown | + + + Author + + + | Author | [facility] | | | and [place] | + + + | Organization | [facility] | | | and [place] | + + + | Address | Unknown | + + + | Phone | Unavailable | + + + Support + + + + + | Name | Relationship | Address | Phone | + + + + + | Taurus Salinas | ECON | [place] | | | | | [address] | | + + + + + | Detailed Message | ECON | Unknown | | + + + + + Care Team Providers + +------+ + | Care Carpenter Railcar Name | Role | Phone | + [...] | | | | | | | ME | | | | | | | ESOPHAGOGAST | | | | | | | RODUODENOSCO | | | | | | | PY TRANSORAL | | | | | | | DIAGNOSTIC | | | | | | | ME EGD | | | | | | | TRANSORAL | | | | | | | BIOPSY | | | | | | | SINGLE/MULTI | | | | | | | PLE ME | | | | | | | COLONOSCOPY | | | | | | | FLX DX | | | | | | | W/COLLJ SPEC | | | | | | | WHEN PFRMD | | | | | | | ME | | | | | | | COLONOSCOPY | | | | | | | W/BIOPSY | | | | | | | SINGLE/MULTI | | | | | | | PLE ME | | | | | | | COLSC FLX | | | | | | | W/RMVL OF | | | | | | | TUMOR POLYP | | | | | | | LESION SNARE | | | | | | | TQ ME | | | | | | | ANESTH,UGI | | | | | | | ENDOSCOPY | | | | | | | ME | | | | | | | [...] + + + + | 05/25/ | Anesthesia | [facility] | Trevon Aranda, | | | 2017 | Event | [facility] | DO [address] | | | | | [address] | [place] | | | | | [place] | [address] | | | | | [address] | | | | | | [phone] | | | +--------+ + + + + Anesthesia Record + + + + + | Procedure Name | Responsible | Anesthesia Start | Anesthesia Stop Time | | | Anesthesiologist | Time | | + + + + + | PATTI (N/A Wojciech) | Trevon Aranda DO | 05/25/17 1310 | 05/25/17 1400 | + + + + + +----+---+ + + | Da | T | Event | Comment | | te | i | | | | | m | | | | | e | | | +----+---+ + + | 09 | 1 | | | | /2 | 2 | | | | 2/ | 1 | | | | 20 | 6 | | | | 17 | | | | +----+---+ + + | | 1 | An Checkout | Pre-use anesthesia machine/equipment checkout. | | | 3 | | | | | 1 | | | | | 0 | | | +----+---+ + + | | 1 | An Start | Reassessment prior to anesthesia induction/procedure. | | | 3 | | | | | 1 | | | | | 0 | | | +----+---+ + + | | 1 | AN | Per surgeon request | | | 3 | Antibiotic | | | | 1 | declined | | | | 0 | | | +----+---+ + + | | 1 | Pre-Procedu | | | | 3 | ral Timeout | | | | 1 | Completed | | | | 0 | | | +----+---+ + + | | 1 | An | | | | 3 | Induction | | | | 1 | | | | | 2 | | | +----+---+ + + | | 1 | Breathing | | | | 3 | Spontaneous | | | | 1 | ly | | | | 2 | | | +----+---+ + + | | 1 | First | | | | 3 | Inc/Proc St | | | | 1 | | | | | 2 | | | +----+---+ + + | | 1 | an stop | | | | 3 | data | | | | 5 | | | | | 2 | | | +----+---+ + + | | 1 | An Stop | Patient handed off to recovery nurse. | | | 0 | | | | | 0 | | | +----+---+ + + +------+ | Meds | +------+ + + + | Name | Total | + + + | lidocaine 2% | 50 mg | + + + | propofol | 70 mg | + + + | propofol | 850.95 mg | + + + | lactated ringers (LR) infusion | 600 mL | + + + + + | Name | + + | O2 Flow Rate (L/Min) | + + + + | No blood administrations on file. | + + +--------+ + + + | Type | Details | Placement | Removal | +--------+ + + + | Periph | 05/25/17; 1227; Right; Hand; | 05/25/17 1227 by | 05/25/17 1425 by | | eral | vyqk-ant-jrmhho catheter system; | JOSSELYN ARGUELLO | Stephanie Alcantar RN | | IV | 20 gauge, 1 1/2 in length; | | | | | intradermal injection, topical | | | | | anesthetic spray applied, | | | | | tolerated well, appears | | | | | comfortable; no longer indicated; | | | | | 05/25/17; 1425 | | | +--------+ + + + documented in this encounter Social History + + + +--------+ + [...] [place] | | | | | | [address] | | | | | | | | +--------+---------+ + + + | 01/28/ | Office | Cardiology | Vannesa Martinez | | | 2019 | Visit | | [address] | | | | | | [place] | | | | | | [place] [address] | | | | | | [phone] | | | | | | | | +--------+---------+ + + + documented as of this encounter Visit Diagnoses Not on filedocumented in this encounter Administered Medications + +---------+ +------+------+------+ | Medication Order | MAR | Action | Dose | Rate | Site | | | Action | Date | | | | + +---------+ +------+------+------+ | lactated ringers (LR) infusion | New Bag | 05/25/20 | | | | | at 100 mL/hr, Intravenous, | | 17 1:05 | | | | | CONTINUOUS, Starting 05/25/17 | | PM PDT | | | | | at 1230, Pre-op | | | | | | + +---------+ +------+------+------+ +---+---+ | | | +---+---+ + +-------+ +-------+---+---+ | lidocaine (PF) 2% injection | Given | 05/25/20 | 50 mg | | | | Intravenous, PRN, Starting Fri | | 17 1:12 | | | | | 05/25/17 at 1312, Anesthesia | | PM PDT | | | | | Intra-op | | | | | | + +-------+ +-------+---+---+ +---+---+ | | | +---+---+ + +-------+ +-------+---+---+ | propofol (DIPRIVAN) injection | Given | 05/25/20 | 70 mg | | | | Intravenous, PRN, Starting Sun | | 17 1:12 | | | | | 05/25/17 at 1312, Anesthesia | | PM PDT | | | | | Intra-op | | | | | | + +-------+ +-------+---+---+ +---+---+ | | | +---+---+ + +---------+ + +--------+---+ | propofol (DIPRIVAN) injection | New Bag | 05/25/20 | 300 | 164.7 | | | Intravenous, CONTINUOUS PRN, | | 17 1:12 | mcg/kg/m | mL/hr | | | Starting Sun05/25/17 at 1312, | | PM PDT | in | | | | Anesthesia Intra-op | | | | | | + +---------+ + +--------+---+ +---+---+ | | | +---+---+ documented in this encounter"
--- OUTSIDE RECORDS SUMMARY | ~2019-09-04 | XMS | Encounter Summary ---
Demographics + + + | Address | [address] | | | [place] [address] | + + + | Home Phone | | + + + | Preferred Language | Unknown | + + + | Marital Status | Unknown | + + + | Yarsani Affiliation | Unknown | + + + [...] [place] | | | | | [address] | | + + + + + | Detailed Message | ECON | Unknown | | + + + + + Care Team Providers + +------+ + | Care Modeling Teacher Name | Role | Phone | + [...] | [address] | [place], [place] [address] | | | | | [address] [place] [address] | [place] | | | | | [address] | [id number] | | | | | [phone] | | | +--------+ + + + [...] 2019 | Visit | | MD [address] | | | | | | [place] | | | | | | [address] | | | | | | | | +--------+---------+ + + + | 01/28/ | Office | Cardiology | Vannesa Martinez | | | 2019 | Visit | | [address] | | | | | | [address] | | | | | | [place] [address] | | | | | | [phone] | | | | | | | | +--------+---------+ + + + documented as of this encounter Visit Diagnoses Not on filedocumented in this encounter"
--- OUTSIDE RECORDS SUMMARY | ~2019-09-04 | XMS | Encounter Summary ---
Demographics + + + | Address | [address] | | | [place] [address] | + + + | Home Phone [...] + + + | Author | [facility] | | | and [place] | + + + | Organization | [facility] | | | and [place] | + + + | Address | Unknown | + + + | Phone | Unavailable | + + + Support + + + + + | Name | Relationship | Address | Phone | + + + + + | Taurus Salinas | ECON | [place] | | | | | [address] | | + + + + + | Detailed Message | ECON | Unknown | | + + + + + Care Team Providers + +------+ + | Care Monitoring Specialist Name | Role | Phone | [...] | | Services | | Elevated | [facility], | JOSE RAFAEL | | | Required | | LFTs | [place], | HOSPITAL | | | | | Alcohol | [facility] [address] | [address] | | | | | abuse | [place], [place] | [address] | | | | | Hiccups | [address] | [place], [place] | | | | | Gastroesopha | [facility], [place] | [address] | | | | | geal reflux | [address] | Phone: | | | | | disease, | Phone: | [phone] | | | | | esophagitis | [phone] | Fax: | | | | | presence not | Fax: | [phone] | | | | | specified | [phone] | | | | | | History [...] | DO [address] | [address], | | | | | liver, not | [address] | [address] | | | | | elsewhere | [place] | [place], | | | | | classified | [address] | [place] [address] | | | | | Procedures | Phone: | Phone: | | | | | Office Visit | [phone] | [phone] | | | | | | Fax: | Fax: | | | | | | [phone] | [phone] | +--------+--------+ + + + + Encounter Details +--------+---------+ + + + | Date | Type | Department | Care Team | Description | +--------+---------+ + + + | 05/03/ | [facility] | [facility] | [facility], | Elevated LFTs | | 2017 | Visit | GASTROENTEROLOGY | WILLEM Senior [address] | (Primary Dx); | | | | [address] | [place], [place] [address] | Alcohol abuse; | | | | [address] [place], [place] | [place], [place] | Dysphagia, | | | | [address] | [address] | unspecified type; | | | | [phone] | | Hiccups; | | | | [...] for you: 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 Duties at work [...] Alcohol and Substance Abuse Information Center (NASAIC): [phone] www.[employer] National [place] on Alcoholism and Drug Dependence (NCADD): 210-AOG-LJIV ([phone]) www. ncHBCS.org Call 911 Call 911 if any of [...] tarry stools Severe shakiness Date Last Reviewed: 02/02/201619997167-2569 The [employer]. [address] [place] [address], [place] [address]. All righ ts reserved. This information is [...] histo ry and previous withdrawal symptoms, medical sales specialist may be able to predict how severe [...] and more frequent dosing. Date Last Reviewed: 10/04/201619999089-[address] [employer] [place] [address]. All righ ts reserved. This information is [...] are caused by drinking. Date Last Reviewed: 02/02/201619996376-82[address] [employer] [place] [address], [place] [address]. All righ ts reserved. This information is [...] He was also seen by pulmonology at [facility]. He was given compazine every 6 hours. 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
--- OUTSIDE RECORDS SUMMARY | ~2019-09-04 | XMS | Encounter Summary ---
Demographics + + + | Address | [address] | | | [place] [address] | + + + | Home Phone | | + + + | Preferred Language | Unknown | + + + | Marital Status | Unknown | + + + | Adventism Affiliation | Unknown | + + + [...] [place] | | | | | [address] | | + + + + + | Detailed Message | ECON | Unknown | | + + + + + Care Team Providers + +------+ + | Care Gear Technician Name | Role | Phone | + +------+ + | Kenny Hernandez DO | PCP | | + +------+ + Reason for Visit +---------+ + | Reason | Comments | +---------+ + | Results | | +---------+ + Encounter Details +--------+ + + + + | Date | Type | Department | Care Team | Description | +--------+ + + + + | 06/08/ | Telephone | [facility] | Glen Dahl MD | Results | | 2017 | | GASTROENTEROLOGY | [address] [facility] | | | | | [address] [facility] | [place], [place] | | | | | [address] [place], [place] | [address] | | | | | [address] | [phone] | | | | | [phone] | | | +--------+ + + + [...] [place] | | | | | | [address] | | | | | | | | +--------+---------+ + + + | 01/28/ | Office | Cardiology | Vannesa Martinez | | | 2019 | Visit | | [address] | | | | | | [address] | | | | | | [place] [address] | | | | | | [phone] | | | | | | | | +--------+---------+ + + + documented as of this encounter Visit Diagnoses Not on filedocumented in this encounter"
--- OUTSIDE RECORDS SUMMARY | ~2019-09-04 | XMS | Encounter Summary ---
Demographics + + + | Address | [address] | | | [place] [address] | + + + | Home Phone | | + + + | Preferred Language | Unknown | + + + | Marital Status | Unknown | + + + | Alevism Affiliation | Unknown | + + + | Race | Unknown | + + + | Ethnic Group | Unknown | + + + Author + + + | Author | [facility] | | | and [place] | + + + | Organization | [facility] | | | and [place] | + + + | Address | Unknown | + + + | Phone | Unavailable | + + + Support + + + + + | Name | Relationship | Address | Phone | + + + + + | Taurus Salinas | ECON | [place] | | | | | [address] | | + + + + + | Detailed Message | ECON | Unknown | | + + + + + Care Team Providers + +------+ + | Care Flight Instructor Name | Role | Phone | + +------+ + | Kenny Hernandez DO | PCP | | + +------+ + Encounter Details +--------+ + + + + | Date | Type | Department | Care Team | Description | +--------+ + + + + | 05/09/ | Episode | [facility] | Lia Hanson, | | | 2016 | Changes | GASTROENTEROLOGY | RN | | | | | [address] [place] | | | | | | [address] [place] | | | | | | [address] | | | | | | [phone] | | | +--------+ + + + [...] [place] | | | | | | [address] | | | | | | | | +--------+---------+ + + + | 01/28/ | Office | Cardiology | Vannesa Martinez | | | 2019 | Visit | | [address] | | | | | | [address] | | | | | | [place] [address] | | | | | | [phone] | | | | | | | | +--------+---------+ + + + documented as of this encounter Visit Diagnoses Not on filedocumented in this encounter"
--- OUTSIDE RECORDS SUMMARY | ~2019-09-04 | XMS | Encounter Summary ---
Demographics + + + | Address | [address] | | | [place] [address] | + + + | Home Phone | | + + + | Preferred Language | Unknown | + + + | Marital Status | Unknown | + + + | Sikhism Affiliation | Unknown | + + + | Race | Unknown | + + + | Ethnic Group | Unknown | + + + Author + + + | Author | [facility] | | | and [place] | + + + | Organization | [facility] | | | and [place] | + + + | Address | Unknown | + + + | Phone | Unavailable | + + + Support + + + + + | Name | Relationship | Address | Phone | + + + + + | Taurus Salinas | ECON | [place] | | | | | [address] | | + + + + + | Detailed Message | ECON | Unknown | | + + + + + Care Team Providers + +------+ + | Care Roller Setter Name | Role | Phone | + [...] | | | | [address] [place] | | | | | | [address] | | | | | | [phone] | | | +--------+ + + + [...] [place] | | | | | | [address] | | | | | | | | +--------+---------+ + + + | 01/28/ | Office | Cardiology | Vannesa Martinez | | | 2019 | Visit | | [address] | | | | | | [address] | | | | | | [place] [address] | | | | | | [phone] | | | | | | | | +--------+---------+ + + + documented as of this encounter Visit Diagnoses Not on filedocumented in this encounter"
--- OUTSIDE RECORDS SUMMARY | ~2019-09-04 | XMS | Encounter Summary ---
Demographics + + + | Address | [address] | | | [place] [address] | + + + | Home Phone [...] + + + | Author | [facility] | | | and [place] | + + + | Organization | [facility] | | | and [place] | + + + | Address | Unknown | + + + | Phone | Unavailable | + + + Support + + + + + | Name | Relationship | Address | Phone | + + + + + | Taurus Salinas | ECON | [place] | | | | | [address] | | + + + + + | Detailed Message | ECON | Unknown | | + + + + + Care Team Providers + +------+ + | Care An/Sqq 89(V)15 Sonar System Journeyman Name | Role | Phone | + [...] | | | | | | | [place] | | | | | | | ESOPHAGOGAST | | | | | | | RODUODENOSCO | | | | | | | PY TRANSORAL | | | | | | | DIAGNOSTIC | | | | | | | [place] EGD | | | | | | | TRANSORAL | | | | | | | BIOPSY | | | | | | | SINGLE/MULTI | | | | | | | PLE [place] | | | | | | | COLONOSCOPY | | | | | | | FLX DX | | | | | | | W/COLLJ SPEC | | | | | | | WHEN PFRMD | | | | | | | [place] | | | | | | | COLONOSCOPY | | | | | | | W/BIOPSY | | | | | | | SINGLE/MULTI | | | | | | | PLE [place] | | | | | | | COLSC FLX | | | | | | | W/RMVL OF | | | | | | | TUMOR POLYP | | | | | | | LESION SNARE | | | | | | | TQ [place] | | | | | | | ANESTH,UGI | | | | | | | ENDOSCOPY | | | | | | | [place] | | | | | | | [...] | | | | | [address] | [place] | | | | | [place] | [address] | | | | | [address] | | | | | | [phone] | | | +--------+ + + + [...] 05/25/17 1425 by | | eral | lcso-icz-flbwja catheter system; | JOSSELYN ARGUELLO | Stephanie [...] [place] | | | | | | [address] | | | | | | | | +--------+---------+ + + + | 01/28/ | Office | Cardiology | Vannesa Martinez | | | 2019 | Visit | | [address] | | | | | | [address] | | | | | | [place] [address] | | | | | | [phone] | | | | | | | [...]
--- OUTSIDE RECORDS SUMMARY | ~2019-09-04 | XMS | Encounter Summary ---
Demographics + + + | Address | [address] | | | [place] [address] | + + + | Home Phone | | + + + | Preferred Language | Unknown | + + + | Marital Status | Unknown | + + + | Shinto Affiliation | Unknown | + + + | Race | Unknown | + + + | Ethnic Group | Unknown | + + + Author + + + | Author | [facility] | | | and [place] | + + + | Organization | [facility] | | | and [place] | + + + | Address | Unknown | + + + | Phone | Unavailable | + + + Support + + + + + | Name | Relationship | Address | Phone | + + + + + | Taurus Salinas | ECON | [place] | | | | | [address] | | + + + + + | Detailed Message | ECON | Unknown | | + + + + + Care Team Providers + +------+ + | Care Administrative Clerk Name | Role | Phone | + [...] | | | | unspecified | PA-C [address] | [place], | | | | | ([facility]) | ISAI [address] | [address] | | | | | Procedures | Ave | [place], [place] | | | | | Evaluate and | [place], | [address] Phone: | | | | | Treat | [place] | [phone] | | | | | | [address] | Fax: | | | | | | Phone: | [phone] | | | | | | [phone] | | | | | | | Fax: | | | | | | | [phone] | | +--------+ + + + + [...] | DR [address], | [place] [address] | to thrombosis of | | | | [place] [address] | [phone] | cerebral artery | | | | [phone] | | (HCC) | +--------+---------+ + + [...] the followin g tests/procedures ordered. At [facility] Brain MRI with and without contrast Carotid ultrasound Blood work for BUN/creatinine Medication Instructions: Chlorpromazine 25 mg 3 times a day *Any questions, please call Dr. Matos's office at Patient advised of their right to have diagnostic testing, health care treatment, and/or se rvices at a facility other than [facility]. 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 IMPRESSION: 1. Lacunar infarcts on brain [...] He refers to be worked up in [place] . I will continue to follow him. [...] Dr | | | | | | [facility] | | | | | | [address] | | | | | | | | +--------+---------+ + + + | 01/28/ | Office | Cardiology | Vannesa Martinez | | | 2020 | Visit | | [address] | | | | | | [address] | | | | | | [place] [address] | | | | | | [phone] | | | | | | | | +--------+---------+ + + + documented as of this encounter Visit Diagnoses + + | Diagnosis | + + | Hiccups - Primary Hiccough | + + | Cerebrovascular accident (CVA) due to thrombosis of cerebral artery (HCC) | + + documented in this encounter
--- OUTSIDE RECORDS SUMMARY | ~2019-09-04 | XMS | Encounter Summary ---
Demographics + + + | Address | [address] | | | [place] [address] | + + + | Home Phone [...] + | Author | [facility] | | | and [place] | + + + | Organization | [facility] | | | and [place] | + + + | Address | Unknown | + + + | Phone | Unavailable | + + + Support + + + + + | Name | Relationship | Address | Phone | + + + + + | Taurus Salinas | ECON | [place] | | | | | [address] | | + + + + + | Detailed Message | ECON | Unknown | | + + + + + Care Team Providers + +------+ + | Care Pe Manager Name | Role | Phone | [...] [address] | | | | | [place] [address] | | | | | | [phone] | | | +--------+ + + + [...] [place] | | | | | | [id number] | | | | | | | | +--------+---------+ + + + | 01/28/ | Office | Cardiology | Vannesa Martinez | | | 2019 | Visit | | [address] | | | | | | [address] | | | | | | [place] [address] | | | | | | [phone] | | | | | | | | +--------+---------+ + + + documented as of this encounter Visit Diagnoses Not on filedocumented in this encounter"
--- OUTSIDE RECORDS SUMMARY | ~2019-09-04 | XMS | Encounter Summary ---
Demographics + + + | Address | [address] | | | [place] [address] | + + + | Home Phone [...] + + + | Author | [facility] | | | and [place] | + + + | Organization | [facility] | | | and [place] | + + + | Address | Unknown | + + + | Phone | Unavailable | + + + Support + + + + + | Name | Relationship | Address | Phone | + + + + + | Taurus Salinas | ECON | [place] | | | | | [address] | | + + + + + | Detailed Message | ECON | Unknown | | + + + + + Care Team Providers + +------+ + | Care Automatic Oven Operator Name | Role | Phone | + +------+ + | Daisy Jane | PCP | | | PA-C | | | + +------+ + Encounter Details +--------+ + + + + | Date | Type | Department | Care Team | Description | +--------+ + + + + | 01/19/ | Hospital | [facility] | [facility], | Chronic obstructive | | 2016 | Encounter | [facility] | Camille Wu MD | pulmonary disease, | | | | [address] | | unspecified COPD | | | | [place], | | type (HCC) | | | | [place] [address] | | | | | | [phone] | | | +--------+ + + + [...] | | | | | [place] | | | | | | [id number] | | | | | | | | +--------+---------+ + + + | 01/28/ | Office | Cardiology | [facility] | | | 2019 | Visit | | [address] | | | | | | [address] | | | | | | [place] [address] | | | | | | [phone] | | | | | | | | +--------+---------+ + + + documented as of this encounter Procedures + +--------+ + + + | Procedure Name | Priori | Date/Time | Associated Diagnosis | Comments | | | ty | | | | + +--------+ + + + | PFT PULMONARY | [facility] | 02/06/2016 | Chronic | Results for this | | FUNCTION TESTING | | 7:12 PM | obstructive | procedure are in the | | ORDERS | | PDT | pulmonary disease, | results section. | | | | | unspecified COPD | | | | | | type (HCC) | | + +--------+ + + + | PFT PULMONARY | [facility] | 02/06/2016 | Chronic | Results for this | | FUNCTION TESTING | | 7:12 PM | obstructive | procedure are in the | | ORDERS | | PDT | pulmonary disease, | results section. | | | | | unspecified COPD | | | | | | type (HCC) | | + +--------+ + + + | PFT PULMONARY | [facility] | 02/06/2016 | Chronic | Results for this | | FUNCTION TESTING | | 7:12 PM | obstructive | procedure are in the | | ORDERS | | PDT | pulmonary disease, | results section. | | | | | unspecified COPD | | | | | | type (HCC) | | + +--------+ + + + | PFT PULMONARY | [facility] | 02/06/2016 | Chronic | Results for this | | FUNCTION TESTING | | 7:12 PM | obstructive | procedure are in the | | ORDERS | | PDT | pulmonary disease, | results section. | | | | | unspecified COPD | | | | | | type (HCC) | | + +--------+ + + + | DIAGNOSTIC REPORT - | | 01/20/2016 | | Results for this | | EXTERNAL SCAN | | 12:00 AM | | procedure are in the | | | | PDT | | results section. | + +--------+ + + + documented in this encounter Results PFT PULMONARY FUNCTION TESTING ORDERS Full PFT ([place] w/BD, lung volumes, diffusion)?: Yes (02/06/2016 7:12 [...] [place] MD 02/06/2016 19:08 | | | [facility] CC: Daisy Stratton, | | | [place] | | + + + DIAGNOSTIC REPORT - EXTERNAL SCAN (01/20/2016 12:00 AM PDT) + + + | Narrative | Performed At | + + + | Ordered by an | | | unspecified provider. | | + + + documented in this encounter Visit Diagnoses + + | Diagnosis | + + | Chronic obstructive pulmonary disease, unspecified COPD type (HCC) | + + documented in this encounter"
--- OUTSIDE RECORDS SUMMARY | ~2019-09-04 | XMS | Encounter Summary ---
Demographics + + + | Address | [address] | | | [place] [address] | + + + | Home Phone | | + + + | Preferred Language | Unknown | + + + | Marital Status | Unknown | + + + | Congregational Affiliation | Unknown | + + + | Race | Unknown | + + + | Ethnic Group | Unknown | + + + Author + + + | Author | [facility] | | | and [place] | + + + | Organization | [facility] | | | and [place] | + + + | Address | Unknown | + + + | Phone | Unavailable | + + + Support + + + + + | Name | Relationship | Address | Phone | + + + + + | Taurus Salinas | ECON | [place] | | | | | [address] | | + + + + + | Detailed Message | ECON | Unknown | | + + + + + Care Team Providers + +------+ + | Care Dish Maker Name | Role | Phone | + +------+ + | Kenny Hernandez DO | PCP | | + +------+ + Encounter Details +--------+ + + + + | Date | Type | Department | Care Team | Description | +--------+ + + + + | 05/25/ | Orders Only | [facility] | Glen Dahl MD | Gastroesophageal | | 2017 | | GASTROENTEROLOGY | [address] [facility] | reflux disease with | | | | [address] | [place], [place] | esophagitis (Primary | | | | [address] [place] | [address] | Dx) | | | | [address] | [phone] | | | | | [phone] | | | +--------+ + + + [...] with 2 refills ordered at patient's pharmacy [facility]. Per his procedure note repeat upp er [...] | | | | | [place] | | | | | | [id number] | | | | | | | | +--------+---------+ + + + | 01/28/ | Office | Cardiology | Vannesa Martinez | | | 2019 | Visit | | [address] | | | | | | [address] | | | | | | [place] [address] | | | | | | [phone] | | | | | | | | +--------+---------+ + + + documented as of this encounter Visit Diagnoses + + | Diagnosis | + + | Gastroesophageal reflux disease with esophagitis - Primary | + + documented in this encounter"
--- OUTSIDE RECORDS SUMMARY | ~2019-09-04 | XMS | Encounter Summary ---
Demographics + + + | Address | [address] | | | [place] [address] | + + + | Home Phone | | + + + | Preferred Language | Unknown | + + + | Marital Status | Unknown | + + + | Anglican Affiliation | Unknown | + + + | Race | Unknown | + + + | Ethnic Group | Unknown | + + + Author + + + | Author | [facility] | | | and [place] | + + + | Organization | [facility] | | | and [place] | + + + | Address | Unknown | + + + | Phone | Unavailable | + + + Support + + + + + | Name | Relationship | Address | Phone | + + + + + | Taurus Salinas | ECON | [place] | | | | | [address] | | + + + + + | Detailed Message | ECON | Unknown | | + + + + + Care Team Providers + +------+ + | Care Environmental Protection Specialist Name | Role | Phone | + +------+ + | Kenny Hernandez DO | PCP | | + +------+ + Encounter Details +--------+ + + + + | Date | Type | Department | Care Team | Description | +--------+ + + + + | 12/12/ | Hospital | [facility] | Conversion | Benign essential | | 2019 | Encounter | [facility]ENTER | Transaction, | hypertension; Atrial | | | | CLINICAL DECISION | Provider Unknown | fibrillation with | | | | [address] | [phone] | [facility] ([facility]); Acute | | | | [place], [place] | | 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 Pt understands discharge instructions. IV's have been gwendolyn yari. onver nicole Charley, Provider Unknown - 12/12/2018 6:37 PM PDT Case Management by ELIZABETH Juarez at 12/12/181836 Author: ELIZABETH Juarez Service: (none) Author Type: Ruby Software Developer Filed: 12/12/181845 Date of Service: 12/12/181836 Status: Addendum Torch Shearer: ELIZABETH Juarez (Ruby Software Developer) Related Notes: Original Note by ELIZABETH Juarez (Ruby Software Developer) filed at 12/12/18 9 Received call from RN advising that patient's [place] [employer] Transport ride home has falle n through and now it is after hours (call received from RN at 5:30pm). [place] [employer] Trans port open only 8-5 M-F, and the direct freight broker agent [employer] [facility] for [facility] is also only open 8-5. Taxi via [employer] $170, patient cites no other resources. Left message for CRM Supervisors regarding approval for transport v. Patient using [place] [employer] Transp ort tomorrow. 6:45pm received approval from John Durbin, lamp stack developer to arrange [employer] for d/c home [...] | | | | | | [facility] [place] | | | | | | [address] | | | | | | | | +--------+---------+ + + + | 01/28/ | Office | Cardiology | Vannesa Martinez | | | 2019 | Visit | | [address] | | | | | | [address] | | | | | | [place] [address] | | | | | | [phone] | | | | | | | [...] at | | | | | | [facility];[address] [place] [address] | | | | | | [facility];[place] [address] | | | | + + + [...] | | | | | performed at [facility];[address] | | | | | | [facility];[place], [place] | | | | | | [address] | | | | + + + [...]
--- OUTSIDE RECORDS SUMMARY | ~2019-09-04 | XMS | Encounter Summary ---
Demographics + + + | Address | [address] | | | [place] [address] | + + + | Home Phone | | + + + | Preferred Language | Unknown | + + + | Marital Status | Unknown | + + + | Jehovah'S Witness Affiliation | Unknown | + + + | Race | Unknown | + + + | Ethnic Group | Unknown | + + + Author + + + | Author | [facility] | | | and [place] | + + + | Organization | [facility] | | | and [place] | + + + | Address | Unknown | + + + | Phone | Unavailable | + + + Support + + + + + | Name | Relationship | Address | Phone | + + + + + | Taurus Salinas | ECON | [place] | | | | | [address] | | + + + + + | Detailed Message | ECON | Unknown | | + + + + + Care Team Providers + +------+ + | Care Manager Games Name | Role | Phone | + +------+ + | Kenny Saenz DO | PCP | | + +------+ + Encounter Details +--------+ + + + + | Date | Type | Department | Care Team | Description | +--------+ + + + + | 11/03/ | Hospital | [facility] | Dony Verma MD | Cardiogenic shock | | 2019 - | Encounter | [facility] | [address] | ([facility]) | | | | CARE FLOOR [address] | [address] [address] [place], [place] | | | 11/07/ | | [address] | [id number] | | | 2018 | | [place], [place] | | | | | | [address] | | | | | | [phone] | | | +--------+ + + + [...] Service: Hospitalist Author Type: Physician Filed: 11/07/18 5360 Date of Service: 11/07/18518 Status: Addendum Heel Shaper: Betty Perkins MD (Physician) Related Notes: Original Note by Betty Perkins MD (Physician) filed at 11/07/18 8880 [facility] Service: Hospitalist Physician Discharge Summary Patient ID: [...] fifth of hard liquor per day, but [place]'s docum entation indicates he quit years ago),and methamphetamine abusewho presents in transfer from [place] where he was being treated for new onset atrial fibrillation andcardiogeni c shock. He originally presented to the hospital in [place] after waking up on the morni ng of 11/02 with severe epigastric pain radiating up his chest. He c/o nausea, but denied vo miting. In [place], he was found to be in Afib with RVR, and was given a cardizem bolus. Troponin was minimally elevated at this time, and he was hemodynamically stable. He was transferred to [place] in [place] due to the need for cardiology consult. His epig astric pain had resolved at that time, and patient's rate was controlled but remained in atr ial fib. After transfer to [place], patient remained on the cardizem drip. A [...] not previously known. Cardiogenic shock, developed at [place] on the afternoon of 11/03/18 after being on Cardizem. Patient had to be briefly paced due t o symptomatic bradycardia with rate down to the 30s. Patient was started on dopamine, nore pinephrine, and later added epinephrine. The linux kernel developer service at [facility] was consulted, and the patient [...] have an EF of 20% while at [place]. Echo here showed EF 20-25% -Cardiogenic shock [...] -Continue aspirin. -Lipid panel was checked at [place] - all values normal. Essential hypertension Antihypertensives were restarted with the exception of Norvasc. Thoracic aortic aneurysm without rupture. Monitor COPD/ panlobular emphysema. - Not in acute exacerbation. - Albuterol PRN wheezing. - History of tobacco use - documentation from [place] states he quit years ago. Epigastric pain [...] days- first dose received on 11/03 at [place] . Procalci tonin was normal Remained afebrile. [...] Mykel Saenz, DO [address] [place] [address] In 3 days [facility] [address] [facility] [address] In 4 days Medication List [...] Your Medications These medications were sent to [facility] [address] [place] [address] - [address] [facility] [place], [place] [address] losartan 25 MG tablet spironolactone 25 MG [...] 1426 Date of Service: 11/07/181423 Status: Signed Heel Shaper: Samm Hodges RN (Registered Nurse) DC instructions discussed with Pt, with empasis on drug/ETOH cessation and cardiology follo w up. PICC line DC'd. Pt waiting for ride home. Pt will be transported by friend. SAMM MASON RN onver nicole Transaction, Provider Unknown - 11/07/2018 2:12 PM PST Case Management by Zulay Bridges RN at 11/07/18 3612 Author: Zulay Bridges RN Service: (none) Author Type: Registered Nurse Filed: 11/07/18 1413 Date of Service: 11/07/18 1412 Status: Signed Heel Shaper: Zulay Bridges RN (Registered Nurse) 11/07/18 1410 [...] Date of Service: 11/07/18 1342 Status: Addendum Heel Shaper: Zulay Bridges RN (Registered Nurse) Related Notes: [...] Date of Service: 11/07/18 1112 Status: Signed Heel Shaper: RAJIV Lopez (Occupational Therapist) 11/07/18 1112 OT [...] 11/06/181845 Date of Service: 11/06/181843 Status: Signed Heel Shaper: Samm Hodges RN (Registered Nurse) Pt disappointed that he wasn't DC'd today. Pt [facility] that [facility] MD ordered an Echo today, but sleep technician's schedule was full, and was unable to [...] 11/06/1849 Date of Service: 11/06/18747 Status: Signed Heel Shaper: Lisa Salinas RN (Registered Nurse) Patient vitals stable, no acute changes. End of shift audit complete. Betty Wiggins MD - 11/06/2018 5:33 AM PST Progress Notes by Betty Perkins MD at 11/06/18532 Author: Betty Perkins MD Service: Hospitalist Author Type: Physician Filed: 11/06/18 1323 Date of Service: 11/06/18532 Status: Signed Heel Shaper: Betty Perkins MD (Physician) [facility] Service: Hospitalist Progress Note Hospital Day: LOS: 3 days SUBJECTIVE Patient Summary: From HPI Per ICU Ellie Mcpherson WILLEM 11/03/18 The patient is a 53 y.o. male with significant past medical history of COPD, HTN, CVA, alco hol abuse (historically, was drinking a fifth of hard liquor per day, but [place] documen tation indicates he quit years ago), and methamphetamine abuse who presents in transfer from [place] where he was being treated for new onset atrial fibrillation and cardiogenic ирина ck. He originally presented to the hospital in [place] after waking up on the morning of 11/02 with severe epigastric pain radiating up his chest. He c/o nausea, but denied vomiting. In [place], he was found to be in Afib with RVR, and was given a cardizem bolus. Tropon in was minimally elevated at this time, and he was hemodynamically stable. He was transferr ed to [place] in [place] due to the need for cardiology consult. His epigastric pain had resolved at that time, and patient's rate was controlled but remained in atrial fib. After transfer to [place], patient remained on the cardizem drip. A [...] not previously known. Cardiogenic shock, developed at [place] on t afternoon of 11/03/18 after being on Cardizem. Patient had to be briefly paced due to symp tomatic bradycardia with rate down to the 30s. Patient was started on dopamine, norepinephr ine, and later added epinephrine. The linux kernel developer service at [facility] was consulted, and the patient [...] have an EF of 20% while at [place], so Cardizem was stopped. -Cardiogenic shock - developed in the setting of calcium channel jenise use in pt with unr ecognized cardiomyopathy. Resolved. -Weaned off epinephrine and levophed on 11/04. -Patient was intubated for airway protection in the setting of cardiogenic shock. Extubate d on 11/04. Cardiac Diet Coronary artery disease. -Continue aspirin. -Lipid panel was checked at [place] - all values normal. Essential hypertension Antihypertensives were restarted - amlodipine, carvedilol, losartan. Thoracic aortic aneurysm without rupture. Monitor COPD/ panlobular emphysema. - Not in acute exacerbation. - Albuterol PRN wheezing. - History of tobacco use - documentation from [place] states he quit years ago. Epigastric pain [...] - first dose received on 11/03 at [place] - stop date 11/07. Procalcit onin was [...] 11/05/181837 Date of Service: 11/05/181837 Status: Signed Heel Shaper: Pinky Bui RN (Registered Nurse) End of shift audit: Signed and held orders: reviewed and released Medications parameters: completed as ordered Protocols: Completed Restraints: N/A Blood: N/A Audit completed. Pinky Bui RN. 11/05/18 6:38 PM onver nicole Transaction, Provider Unknown - 11/05/2018 1:35 PM PST Nurse Progress Note by Irina Martin RN at 11/05/18 4015 Author: Irina Martin RN Service: (none) Author Type: Registered Nurse Filed: 03/01/19 1335 Date of Service: 11/05/181334 Status: Addendum Heel Shaper: Irina Martin RN (Registered Nurse) Related Notes: Original Note by Irina Martin RN (Registered Nurse) filed at 11/05/181334 Nurse report called to Naina/JASON. Pt taken to room 7108 via w/c. Dayshift chart audit com pleted. Betty Wiggins MD - 11/05/2018 8:55 AM PST Progress Notes by Betty Perkins MD at 11/05/18 0813 Author: Betty Perkins MD Service: Hospitalist Author Type: Physician Filed: 11/05/18 1442 Date of Service: 11/05/18854 Status: Signed Heel Shaper: Betty Perkins MD (Physician) [facility] Service: Hospitalist Progress Note Hospital Day: LOS: 2 days SUBJECTIVE Patient Summary: From HPI Per ICU Ellie Mcpherson MOUNTAIN SERVICES MANAGER 11/03/18 The patient is a 53 y.o. male with significant past medical history of COPD, HTN, CVA, alco hol abuse (historically, was drinking a fifth of hard liquor per day, but [place] documen tation indicates he quit years ago), and methamphetamine abuse who presents in transfer from [place] where he was being treated for new onset atrial fibrillation and cardiogenic ирина ck. He originally presented to the hospital in [place] after waking up on the morning of 11/02 with severe epigastric pain radiating up his chest. He c/o nausea, but denied vomiting. In [place], he was found to be in Afib with RVR, and was given a cardizem bolus. Tropon in was minimally elevated at this time, and he was hemodynamically stable. He was transferr ed to [place] in [place] due to the need for cardiology consult. His epigastric pain had resolved at that time, and patient's rate was controlled but remained in atrial fib. After transfer to [place], patient remained on the cardizem drip. A [...] not previously known. Cardiogenic shock, developed at [place] on t he afternoon of 11/03/18 after being on Cardizem. Patient had to be briefly paced due to symp tomatic bradycardia with rate down to the 30s. Patient was started on dopamine, norepinephr ine, and later added epinephrine. The linux kernel developer service at [facility] was consulted, and the patient [...] an EF of 20% whil e at [place], so Cardizem was stopped. Cardiogenic shock - developed in the setting of calcium channel jenise use in pt with u nrecognized cardiomyopathy. Resolving. Weaned off epinephrine and levophed on 11/04. Coronary artery disease. Continue aspirin. Lipid panel was checked at [place] - all values normal. Essential hypertension. Antihypertensives were restarted - amlodipine, carvedilol, losa rtan. Thoracic aortic aneurysm without rupture. PULM: Patient was intubated for airway protection in the setting of cardiogenic shock. Extuba rao on 11/04. COPD/ panlobular emphysema. Albuterol PRN wheezing. History of tobacco use - documentation from [place] states he quit years ago. GI/NUTRITION: Epigastric [...] first dose receive d on 11/03 at [place] - stop date 11/07. Procalcitonin slightly elevated. Remains afebrile. Blood cultures in process. HEME: No anemia or thrombocytopenia. CBC daily. ENDO: TSH normal at [place]. Implement Endotool if indicated per ICU protocol. [...] by WILLEM Moseley at 11/05/18105 Author: WILLEM Msoeley Service: Model And Pattern Supervisor Author Type: Advanced Registered Nurse Practitioner Filed: 11/05/18 0643 Date of Service: 11/05/18105 Status: Signed Heel Shaper: WILLEM Moseley (Advanced Registered Nurse Practitioner) [facility] Model And Pattern Supervisor Service Progress Note Taurus Domínguez 53 y.o. [...] fifth of hard liquor per day, but [place] documen tation indicates he quit years ago), and methamphetamine abuse who presents in transfer from [place] where he was being treated for new onset atrial fibrillation and cardiogenic ирина ck. He originally presented to the hospital in [place] after waking up on the morning of 11/02 with severe epigastric pain radiating up his chest. He c/o nausea, but denied vomiting. In [place], he was found to be in Afib with RVR, and was given a cardizem bolus. Tropon in was minimally elevated at this time, and he was hemodynamically stable. He was transferr ed to [place] in [place] due to the need for cardiology consult. His epigastric pain had resolved at that time, and patient's rate was controlled but remained in atrial fib. After transfer to [place], patient remained on the cardizem drip. A [...] not previously known. Cardiogenic shock, developed at [place] on t afternoon of 11/03/18 after being on Cardizem. Patient had to be briefly paced due to symp tomatic bradycardia with rate down to the 30s. Patient was started on dopamine, norepinephr ine, and later added epinephrine. The linux kernel developer service at [facility] was consulted, and the patient was transferred to our ICU for further management. ICU Timeline: 11/04: Pt admitted in transfer from [place], in cardiogenic shock. Pressors weaned th roughout [...] heels LINES/TUBES: RUE PICC line (11/03 at [place]), PIVs DATA Recent Labs Lab 11/05/18 0416 [...] an EF of 20% whil e at [place], so Cardizem was stopped. Cardiogenic shock - developed in the setting of calcium channel jenise use in pt with u nrecognized cardiomyopathy. Resolving. Weaned off epinephrine and levophed on 11/04. Coronary artery disease. Continue aspirin. Lipid panel was checked at [place] - all values normal. Essential hypertension. Antihypertensives were restarted - amlodipine, carvedilol, losa rtan. Thoracic aortic aneurysm without rupture. PULM: Patient was intubated for airway protection in the setting of cardiogenic shock. Extuba rao on 11/04. COPD/ panlobular emphysema. Albuterol PRN wheezing. History of tobacco use - documentation from [place] states he quit years ago. GI/NUTRITION: Epigastric [...] first dose receive d on 11/03 at [place] - stop date 11/07. Procalcitonin slightly elevated. Remains afebrile. Blood cultures in process. HEME: No anemia or thrombocytopenia. CBC daily. ENDO: TSH normal at [place]. Implement Endotool if indicated per ICU protocol. [...] 11/04/181937 Date of Service: 11/04/181937 Status: Signed Heel Shaper: Irina Martin RN (Registered Nurse) Dayshift chart audits completed. onver nicole Transaction, Provider Unknown - 11/04/2018 4:12 PM PST Case Management by Camryn Glover RN at 11/04/18 161 Author: Camryn Glover RN Service: (none) Author Type: Registered Nurse Filed: 11/04/18 1621 Date of Service: 11/04/18 161 Status: Signed Heel Shaper: Camryn Glover RN (Registered Nurse) 11/04/18 1500 [...] does not drive/no drivers license Power of Biodiesel Product Development Manager No;Other (comment) (Given POA forms an traveling notary info) Anticipated Discharge Plan Post Acute Care Needs None at this time Plan communicated to patient/family Yes Resources Financial concerns No (Works PT) Transportation issues No (friends drive him places) Patient/Family concerns No Prescription Plan Yes Name of Pharmacy [facility] in [place], [place] Previous home health equipment No Vascular access device No Ostomy/Drains/Appliances No Anticipated Disposition Facility Type Home Met with pt and discussed discharge planning, explained role of CRM. Pt is a 53 y.o., male admitted with cardiogenic shock. Pt awake, A/O, appropriate. Pt stated he lives in [place], [place] in a house with a roommate. [...] he does not drive. He walks to [place] and his friend Taurus Salinas (ph# [phone]) drives him places. Stated his friend Taurus is not his roommate. Taurus lives in [place], [place]. Pt stated he is working with Faina lópez to become his POA for medical decision making but lost the form. Provided pt with Provide nce Advanced Directive forms and contact info for traveling notaries. 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 Discussed ETOH use. Pt stated he "has cut down" and no longer drinks very much hard liquor . He "hates beer" so does not drink it very much. Pt stated he has not used meth in many y ears. He does not go to or participate in any other OP substance abuse programs. Pt declined offer to speak to [facility] about substance/ETOH abuse. Declined offer of resources. Pt stated he plans to return home upon discharge and has no concerns at this time. Patient's PCP is: MYKEL SAENZ DO Patient's insurance: Medicaid-[facility] SENIOR TECHNICAL ARCHITECT ([facility]) Coverage concerns: no concerns Medication coverage/concerns: has [...] Date of Service: 11/04/18 115 Status: Signed Heel Shaper: Abigail Menjivar RRT (Registered Respiratory Therapist) Pt [...] 11/04/18155 Date of Service: 11/04/18155 Status: Signed Heel Shaper: Xiomy Schwab RPH (Pharmacist) Clinical Pharmacy Note: Renal Monitoring Height: 175.3 cm Weight: 91 kg Serum Creatinine: 1.26 mg/dL (from [place] 11/03/18) Estimated creatinine clearance - Cockcroft-Gault CrCl: Greater than 60 mL/min Per CareEverywhere labs from earlier in the day at [place] reported creatinine 0.63 mg/d L Currently there are no medications needing to be adjusted. Pharmacy will continue to monito r for changes in medication orders and in renal function and adjust accordingly. XIOYM SCHWAB Pharmacist 11/04/2018 1:50 AM docume nted [...] | | | [address] [facility] [place] | | | | | | [address] | | | | | | | | +--------+---------+ + + + | 01/28/ | Office | Cardiology | Juan[facility]ann[facility] | | | 2019 | Visit | | SHIRA Garcia [address] | | | | | [address] | | | | | | [place] [address] | | | | | | [phone] | | | | | | | [...] 7.94 cm | | | AR Dec Screven: 2.59 m/s2 AR Dec Time: 1546.99 ms [...] TR maxP.56 mmHg TR Vmax: 2.57 m/s Scratch Brusher: ESTUARDO | | | Authenticated by: Gabe [...] mlLAESV Index (A-L): 59.37 ml/m2LAAs A2C: 32.31 [id number] A-L A2C: 132.42 | | mlLALs A2C: 6.69 cmLAAs A4C: 29.99 [id number] A-L A4C: 96.05 mlLALs A4C: 7.94 cmAR | | Dec Screven: 2.59 m/s2AR Dec Time: 1546.99 msAR maxP.22 mmHgAR PHT: 448.62 | | msAR Vmax: 4.00 m/sHR: 109.18 BPMAV maxP.06 mmHgAV meanP.76 mmHgAV Vmax: | | 1.00 m/Neymar Vmean: 0.81 m/Neymar VTI: 21.36 cmAVA Vmax: 2.99 cm2AVA (VTI): 2.00 | | [id number] Vmax: 0.00 cm2/m2AVAI (VTI): 0.00 cm2/m2LVOT maxP.93 [...] 41.56 mmHgTR maxP.56 mmHgTR Vmax: 2.57 m/s Scratch Brusher: | | MWAuthenticated by: Gabe [facility] Date/Time: 11-07-2018 13:10:35 IMPRESSION: 1. | [...] |LALs A4C: 7.94 cm | |AR Dec Screven: 2.59 m/s2 | |AR Dec Time: 1546.99 [...] |TR Vmax: 2.57 m/s | | | |Scratch Brusher: ESTUARDO | |Authenticated by: Gabe Conrad | [...] | | | | | | at [facility];[address] [place] [address] | | | | | | [facility];[place] [address] | | | | + + + [...] | | | Basophils | performed at [facility], [address] | [address] | LAB | | | | [address], | | | | | | [place] [address] | | | | + + + [...] EXTERNAL | | | | performed at [facility];[address] | | LAB | | | | [address];[place], [place] | | | | | | [address] | | | | + + + [...] EXTERNAL | | | | performed at [facility];[address] | | LAB | | | | [address];[place] | | | | | | [address] | | | | + + + [...] | | | | | | MDRD IDRI traceable | | | | | | equation.Testing | | | | | | performed at [facility] | | | | | | [facility];[place], [place] | | | | | | [address] | | | | + + + [...] + + | Historically converted procedure from [facility] Epic environment | EXTERNAL LAB | + [...] Solorio Conversion - 04/16/2019 12:11 AM PDT CHEST [...] | | | Basophils | performed at [facility], [address] | [address] | LAB | | | | [address], | | | | | | [place] [address] | | | | + + + [...] EXTERNAL | | | | performed at [facility], [address] | | LAB | | | | [address], | | | | | | [place] [address] | | | | + + + [...] EXTERNAL | | | | performed at [facility], [address] | | LAB | | | | [address], | | | | | | [place] [address] | | | | + + + [...] | | | | | performed at [facility], [address] | | | | | | [address], | | | | | | [place] [address] | | | | + + + [...] | | | | performed at [facility] | | | | | | [facility];[place], [place] | | | | | | [address] | | | | + + + [...] EXTERNAL | | | | performed at [facility];[address] | mmol/L | LAB | | | | [address];[place] | | | | | | [address] | | | | + + + [...] | | | Basophils | performed at [facility], [address] | K/uL | LAB | | | | [address], | | | | | | [place] [address] | | | | + + + [...] | | | | | [place] [address] | | | | + + + [...] EXTERNAL | | | | performed at [facility], [address] | | LAB | | | | [address], | | | | | | [place] [address] | | | | + + + [...] | | | | | performed at [facility], [address] | | | | | | [facility], | | | | | | [place] [address] | | | | + + + [...] | | | | | | at [facility];[address];[place] [address] | | | | + + + [...] EXTERNAL | | | | performed at [facility];[address] | | LAB | | | [address];[place], [place] | | | | | | [address] | | | | + + + [...] | | | | | | at [facility];[address] | | | | | | [address];[place] [address] | | | | + + + [...] EXTERNAL | | | | performed at [facility];[address] | | LAB | | | | [address];[place], [place] | | | | | | [address] | | | | + + + [...] EXTERNAL | | | | performed at [facility];[address] | | LAB | | | | [address];[place] | | | | | | [address] | | | | + + + [...] | | | | | | at [facility];[address] [place] [address] | | | | | | [facility];[place] [address] | | | | + + + [...] | | | Basophils | performed at [facility], [address] | K/uL | LAB | | | | [address], | | | | | | [place] [address] | | | | + + + [...] EXTERNAL | | | | performed at [facility];[address] | | LAB | | | | [address];[place], [place] | | | | | | [address] | | | | + + + [...] EXTERNAL | | | | performed at [facility] | | LAB | | | | [address];[place] | | | | | | [address] | | | | + + + [...] | | | | performed at [facility] | | | | | | [facility];[place], [place] | | | | | | [address] | | | | + + + [...] | | | | | | at [facility];[address] [place] [address] | | | | | | [facility];[place] [address] | | | | + + + [...] LAB | | | | performed at [facility] | | | | | | [address];[place] | | | | | | [address] | | | | + + + [...] EXTERNAL | | | | performed at [facility];[address] | mmol/L | LAB | | | | [address];[place] | | | | | | [address] | | | | + + + [...] EXTERNAL | | | | performed at [facility];[address] | | LAB | | | | [address];[place], [place] | | | | | | [address] | | | | + + + [...] EXTERNAL | | | | performed at [facility];[address] | | LAB | | | | [facility];[place], [place] | | | | | | [address] | | | | + + + [...] | | | | performed at [facility] | | | | | | [facility];[place], [place] | | | | | | [address] | | | | + + + [...] NEGATIVE Testing | | | performed at [facility];[address] [place] [address];[place] [address] | | + + + + +---------+ [...] | | | Fingerstick | performed at [facility];[address] | | LAB | | | | Arianna Quintana;[place] | | | | | | [address] | | | | + + + [...]
--- OUTSIDE RECORDS SUMMARY | ~2019-09-04 | XMS | Encounter Summary ---
Demographics + + + | Address | [address] | | | [place] [address] | + + + | Home Phone [...] + + + | Author | [facility] | | | and [place] | + + + | Organization | [facility] | | | and [place] | + + + | Address | Unknown | + + + | Phone | Unavailable | + + + Support + + + + + | Name | Relationship | Address | Phone | + + + + + | Taurus Salinas | ECON | [place] | | | | | [address] | | + + + + + | Detailed Message | ECON | Unknown | | + + + + + Care Team Providers + +------+ + | Care Sourcing Manager Name | Role | Phone | + +------+ + | Kenny Hernandez DO | PCP | | + +------+ + Encounter Details +--------+ + + + + | Date | Type | Department | Care Team | Description | +--------+ + + + + | 05/03/ | Orders Only | [facility] [place] | [place], | Gastroesophageal | | 2017 | | GASTROENTEROLOGY | [address] | reflux disease, | | | | [address] | [place], [address] | esophagitis presence | | | | [address] [place], [place] | [place], [place] | not specified | | | | [address] | [address] | (Primary Dx); | | | | [phone] | | Dysphagia, | | | | | | unspecified type; | | | | | | Elevated LFTs; | | | | | | Hiccups; ETOH abuse; | | | | | | Special screening | | | | | | for malignant | | | | | | neoplasms, colon; | | | | | | History of | | | | | | methamphetamine | | | | | | abuse | +--------+ + + + + Social [...] documented as of this encounter Progress Notes Lia Hanson RN - 05/03/2017 11:30 AM PDTScheduled for egd/colon with prop on 05/25 at [address] Dahl; AVS printed and given to patient; prescription to [facility] per patient re quest. documented in t his encounter Plan of Treatment +--------+---------+ + + + | Date | Type | Specialty | Care Team | Description | +--------+---------+ + + + | 09/30/ | Office | Cardiology | Samm Malik, | | | 2019 | Visit | | [address] | | | | | | [place], [place] | | | | | | [address] | | | | | | | | +--------+---------+ + + + | 01/28/ | Office | Cardiology | Vannesa Martinez | | | 2019 | Visit | | [address] | | | | | | [address] [address] | | | | | | [place] [address] | | | | | | [phone] | | | | | | | | +--------+---------+ + + + documented as of this encounter Visit Diagnoses + + | Diagnosis | + + | Gastroesophageal reflux disease, esophagitis presence not specified - Primary | + + | Dysphagia, unspecified type | + + | Elevated LFTs Other abnormal blood chemistry | + + | Hiccups Hiccough | + + | ETOH abuse Alcohol abuse, unspecified | + + | Special screening for malignant neoplasms, colon | + + | 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
--- OUTSIDE RECORDS SUMMARY | ~2019-09-04 | XMS | Encounter Summary ---
Demographics + + + | Address | [address] | | | [place] [address] | + + + | Home Phone [...] + + + | Author | [facility] | | | and [place] | + + + | Organization | [facility] | | | and [place] | + + + | Address | Unknown | + + + | Phone | Unavailable | + + + Support + + + + + | Name | Relationship | Address | Phone | + + + + + | Taurus Salinas | ECON | [place] | | | | | [address] | | + + + + + | Detailed Message | ECON | Unknown | | + + + + + Care Team Providers + +------+ + | Care Silverware Washer Name | Role | Phone | + +------+ + | Daisy Jane | PCP | | | PA-C | | | + +------+ + Encounter Details +--------+ + + + + | Date | Type | Department | Care Team | Description | +--------+ + + + + | 06/01/ | Hospital | [facility] | Conversion | Unknown cause of | | 2015 | Encounter | CONVERSION [address] | Transaction, | injury | | | | [address] | Provider Unknown | | | | | [place], [place] | [phone] | | | | | [address] | | | | | | [phone] | | | +--------+ + + + [...] | | | | | [address] [place] [place], [place] | | | | | | [id number] | | | | | | | | +--------+---------+ + + + | 01/28/ | Office | Cardiology | Vannesa Martinez | | | 2019 | Visit | | [address] | | | | | | [address] | | | | | | [place] [address] | | | | | | [phone] | | | | | | | [...]
--- OUTSIDE RECORDS SUMMARY | ~2019-09-04 | XMS | Encounter Summary ---
Demographics + + + | Address | [address] | | | [place] [address] | + + + | Home Phone [...] [place] | | | | | [address] | | + + + + + | Detailed Message | ECON | Unknown | | + + + + + Care Team Providers + +------+ + | Care Groover And Turner Name | Role | Phone | + +------+ + | Kenny Hernandez DO | PCP | | + +------+ + Encounter Details +--------+ + + + + | Date | Type | Department | Care Team | Description | +--------+ + + + + | 04/19/ | Abstract | [facility] [place] | [facility], | | | 2016 | | GASTROENTEROLOGY | [address] | | | | | [address] | [place], [address] | | | | | [address] [place], [place] | [place], [place] | | | | | [address] | [address] | | | | | [phone] | | | +--------+ + + + [...] [place] | | | | | | [address] | | | | | | | | +--------+---------+ + + + | 01/28/ | Office | Cardiology | Vannesa Martinez | | | 2019 | Visit | | [address] | | | | | | [address] | | | | | | [place] [address] | | | | | | [phone] | | | | | | | | +--------+---------+ + + + documented as of this encounter Visit Diagnoses Not on filedocumented in this encounter"
--- OUTSIDE RECORDS SUMMARY | ~2019-09-04 | XMS | Encounter Summary ---
Demographics + + + | Address | [address] | | | [place] [address] | + + + | Home Phone [...] Author + + + | Author | [facility] | | | and [place] | + + + | Organization | [facility] | | | and [place] | + + + | Address | Unknown | + + + | Phone | Unavailable | + + + Support + + + + + | Name | Relationship | Address | Phone | + + + + + | Taurus Salinas | ECON | [place] | | | | | [address] | | + + + + + | Detailed Message | ECON | Unknown | | + + + + + Care Team Providers + +------+ + | Care Compressed Gases Tester Name | Role | Phone | + [...] + + | 07/02/ | Telephone | [facility] | [facility], | Appointment | | 2017 | | GASTROENTEROLOGY | [address] | | | | | [address] | [place], [address] | | | | | [address] [place], [place] | [place], [place] | | | | | [address] | [address] | | | | | [phone] | | | +--------+ + + + [...] [place] | | | | | | [address] | | | | | | | | +--------+---------+ + + + | 01/28/ | Office | Cardiology | Vannesa Martinez | | | 2019 | Visit | | [address] | | | | | | [address] | | | | | | [place] [address] | | | | | | [phone] | | | | | | | | +--------+---------+ + + + documented as of this encounter Visit Diagnoses Not on filedocumented in this encounter"
--- OUTSIDE RECORDS SUMMARY | ~2019-09-04 | XMS | Encounter Summary ---
Demographics + + + | Address | [address] | | | [place] [address] | + + + | Home Phone | | + + + | Preferred Language | Unknown | + + + | Marital Status | Unknown | + + + | Adventist Affiliation | Unknown | + + + | Race | Unknown | + + + | Ethnic Group | Unknown | + + + Author + + + | Author | [facility] | | | and [place] | + + + | Organization | [facility] | | | and [place] | + + + | Address | Unknown | + + + | Phone | Unavailable | + + + Support + + + + + | Name | Relationship | Address | Phone | + + + + + | Taurus Salinas | ECON | [place] | | | | | [phone] | | + + + + + | Detailed Message | ECON | Unknown | | + + + + + Care Team Providers + +------+ + | [employer] Paraprofessional Name | Role | Phone | + +------+ + | Kenny Saenz DO | PCP | | + +------+ + Encounter Details +--------+ + + + + | Date | Type | Department | Care Team | Description | +--------+ + + + + | 11/03/ | Hospital | [facility] | Dony Verma MD | Cardiogenic shock | | 2019 - | Encounter | [facility] | [address] | ([facility]) | | | | CARE FLOOR [address] | [address] [place], [place] | | | 11/07/ | | [address] | [id number] | | | 2018 | | [place], [place] | | | | | | [address] | | | | | | [phone] | | | +--------+ + + + [...] Service: Hospitalist Author Type: Physician Filed: 11/07/18 3790 Date of Service: 11/07/18518 Status: Addendum Hand Cutter Apprentice: Betty Perkins MD (Physician) Related Notes: Original Note by Betty Perkins MD (Physician) filed at 11/07/[address] [facility] Service: Hospitalist Physician Discharge Summary [...] fifth of hard liquor per day, but [place]'s docum entation indicates he quit years ago),and methamphetamine abusewho presents in transfer from [place] where he was being treated for new onset atrial fibrillation andcardiogeni c shock. He originally presented to the hospital in [place] after waking up on the morni ng of 11/02 with severe epigastric pain radiating up his chest. He c/o nausea, but denied vo miting. In [place], he was found to be in Afib with RVR, and was given a cardizem bolus. Troponin was minimally elevated at this time, and he was hemodynamically stable. He was transferred to [facility] in [place] due to the need for cardiology consult. His epig astric pain had resolved at that time, and patient's rate was controlled but remained in atr ial fib. After transfer to [place], patient remained on the cardizem drip. A [...] not previously known. Cardiogenic shock, developed at [place] on the afternoon of 11/03/18 after being on Cardizem. Patient had to be briefly paced due t o symptomatic bradycardia with rate down to the 30s. Patient was started on dopamine, nore pinephrine, and later added epinephrine. The tinner automatic service at [facility] was consulted, and the patient was [...] have an EF of 20% while at [place]. Echo here showed EF 20-25% -Cardiogenic shock [...] -Continue aspirin. -Lipid panel was checked at [place] - all values normal. Essential hypertension Antihypertensives were restarted with the exception of Norvasc. Thoracic aortic aneurysm without rupture. Monitor COPD/ panlobular emphysema. - Not in acute exacerbation. - Albuterol PRN wheezing. - History of tobacco use - documentation from [place] states he quit years ago. Epigastric pain [...] days- first dose received on 11/03 at [place] . Procalci tonin was normal Remained afebrile. [...] Mykel Saenz, DO [address] [place] [address] In 3 days [facility] [address] [facility] [id number] In 4 days Medication List [...] Your Medications These medications were sent to [facility] [address] [place] [address] - [address] [facility] [place] [address] losartan 25 MG tablet spironolactone 25 MG [...] 1426 Date of Service: 11/07/181423 Status: Signed Hand Cutter Apprentice: Samm Hodges RN (Registered Nurse) DC instructions discussed with Pt, with empasis on drug/ETOH cessation and cardiology follo w up. PICC line DC'd. Pt waiting for ride home. Pt will be transported by friend. SAMM MASON RN onver nicole Transaction, Provider Unknown - 11/07/2018 2:12 PM PST Case Management by Zulay Bridges RN at 11/07/18 7076 Author: Zulay Bridges RN Service: (none) Author Type: Registered Nurse Filed: 11/07/18 1413 Date of Service: 11/07/18 1412 Status: Signed Hand Cutter Apprentice: Zulay Bridges RN (Registered Nurse) 11/07/18 1410 [...] Date of Service: 11/07/18 1342 Status: Addendum Hand Cutter Apprentice: Zulay Bridges RN (Registered Nurse) Related Notes: [...] Date of Service: 11/07/18 1112 Status: Signed Hand Cutter Apprentice: RAJIV Lopez (Occupational Therapist) 11/07/18 1112 OT [...] 11/06/181845 Date of Service: 11/06/181843 Status: Signed Hand Cutter Apprentice: Samm Hodges RN (Registered Nurse) Pt disappointed that he wasn't DC'd today. Pt [facility] that [facility] MD ordered an Echo today, but electromedical equipment technician's schedule was full, and was unable [...] 11/06/1849 Date of Service: 11/06/18747 Status: Signed Hand Cutter Apprentice: Lisa Salinas RN (Registered Nurse) Patient vitals stable, no acute changes. End of shift audit complete. Betty Wiggins MD - 11/06/2018 5:33 AM PST Progress Notes by Betty Perkins MD at 11/06/18532 Author: Betty Perkins MD Service: Hospitalist Author Type: Physician Filed: 11/06/18 1323 Date of Service: 11/06/18532 Status: Signed Hand Cutter Apprentice: Betty Perkins MD (Physician) [facility] Service: Hospitalist Progress Note Hospital Day: LOS: 3 days SUBJECTIVE Patient Summary: From HPI Per ICU Ellie Mcpherson WILLEM 11/03/18 The patient is a 53 y.o. male with significant past medical history of COPD, HTN, CVA, alco hol abuse (historically, was drinking a fifth of hard liquor per day, but [place] documen tation indicates he quit years ago), and methamphetamine abuse who presents in transfer from [place] where he was being treated for new onset atrial fibrillation and cardiogenic ирина ck. He originally presented to the hospital in [place] after waking up on the morning of 11/02 with severe epigastric pain radiating up his chest. He c/o nausea, but denied vomiting. In [place], he was found to be in Afib with RVR, and was given a cardizem bolus. Tropon in was minimally elevated at this time, and he was hemodynamically stable. He was transferr ed to [place] in [place] due to the need for cardiology consult. His epigastric pain had resolved at that time, and patient's rate was controlled but remained in atrial fib. After transfer to [place], patient remained on the cardizem drip. A [...] not previously known. Cardiogenic shock, developed at [place] on t afternoon of 11/03/18 after being on Cardizem. Patient had to be briefly paced due to symp tomatic bradycardia with rate down to the 30s. Patient was started on dopamine, norepinephr ine, and later added epinephrine. The tinner automatic service at [facility] was consulted, and the patient was [...] have an EF of 20% while at [place], so Cardizem was stopped. -Cardiogenic shock - developed in the setting of calcium channel jenise use in pt with unr ecognized cardiomyopathy. Resolved. -Weaned off epinephrine and levophed on 11/04. -Patient was intubated for airway protection in the setting of cardiogenic shock. Extubate d on 11/04. Cardiac Diet Coronary artery disease. -Continue aspirin. -Lipid panel was checked at [place] - all values normal. Essential hypertension Antihypertensives were restarted - amlodipine, carvedilol, losartan. Thoracic aortic aneurysm without rupture. Monitor COPD/ panlobular emphysema. - Not in acute exacerbation. - Albuterol PRN wheezing. - History of tobacco use - documentation from [place] states he quit years ago. Epigastric pain [...] - first dose received on 11/03 at [place] - stop date 11/07. Procalcit onin was [...] 11/05/181837 Date of Service: 11/05/181837 Status: Signed Hand Cutter Apprentice: Pinky Bui RN (Registered Nurse) End of shift audit: Signed and held orders: reviewed and released Medications parameters: completed as ordered Protocols: Completed Restraints: N/A Blood: N/A Audit completed. Pinky Bui RN. 11/05/18 6:38 PM onver nicole Transaction, Provider Unknown - 11/05/2018 1:35 PM PST Nurse Progress Note by Irina Martin RN at 11/05/18 5676 Author: Irina Martin RN Service: (none) Author Type: Registered Nurse Filed: 03/01/19 1335 Date of Service: 11/05/181334 Status: Addendum Hand Cutter Apprentice: Irina Martin RN (Registered Nurse) Related Notes: Original Note by Irina Martin RN (Registered Nurse) filed at 11/05/181334 Nurse report called to Naina/JASON. Pt taken to room 7108 via w/c. Dayshift chart audit com pleted. Betty Wiggins MD - 11/05/2018 8:55 AM PST Progress Notes by Betty Perkins MD at 11/05/18 0842 Author: Betty Perkins MD Service: Hospitalist Author Type: Physician Filed: 11/05/18 1442 Date of Service: 11/05/18854 Status: Signed Hand Cutter Apprentice: Betty Perkins MD (Physician) [facility] Service: Hospitalist Progress Note Hospital Day: LOS: 2 days SUBJECTIVE Patient Summary: From HPI Per ICU Ellie Mcpherson LOADING MANAGER 11/03/18 The patient is a 53 y.o. male with significant past medical history of COPD, HTN, CVA, alco hol abuse (historically, was drinking a fifth of hard liquor per day, but [facility] documen tation indicates he quit years ago), and methamphetamine abuse who presents in transfer from [place] where he was being treated for new onset atrial fibrillation and cardiogenic ирина ck. He originally presented to the hospital in [place] after waking up on the morning of 11/02 with severe epigastric pain radiating up his chest. He c/o nausea, but denied vomiting. In [place], he was found to be in Afib with RVR, and was given a cardizem bolus. Tropon in was minimally elevated at this time, and he was hemodynamically stable. He was transferr ed to [place] in [place] due to the need for cardiology consult. His epigastric pain had resolved at that time, and patient's rate was controlled but remained in atrial fib. After transfer to [place], patient remained on the cardizem drip. A [...] not previously known. Cardiogenic shock, developed at [place] on t he afternoon of 11/03/18 after being on Cardizem. Patient had to be briefly paced due to symp tomatic bradycardia with rate down to the 30s. Patient was started on dopamine, norepinephr ine, and later added epinephrine. The tinner automatic service at [facility] was consulted, and the patient was [...] an EF of 20% whil e at [place], so Cardizem was stopped. Cardiogenic shock - developed in the setting of calcium channel jenise use in pt with u nrecognized cardiomyopathy. Resolving. Weaned off epinephrine and levophed on 11/04. Coronary artery disease. Continue aspirin. Lipid panel was checked at [place] - all values normal. Essential hypertension. Antihypertensives were restarted - amlodipine, carvedilol, losa rtan. Thoracic aortic aneurysm without rupture. PULM: Patient was intubated for airway protection in the setting of cardiogenic shock. Extuba rao on 11/04. COPD/ panlobular emphysema. Albuterol PRN wheezing. History of tobacco use - documentation from [place] states he quit years ago. GI/NUTRITION: Epigastric [...] first dose receive d on 11/03 at [place] - stop date 11/07. Procalcitonin slightly elevated. Remains afebrile. Blood cultures in process. HEME: No anemia or thrombocytopenia. CBC daily. ENDO: TSH normal at [place]. Implement Endotool if indicated per ICU protocol. [...] Moseley at 11/05/18105 Author: WILLEM Moseley Service: Speech/Language Therapist Author Type: Advanced Registered Nurse Practitioner Filed: 11/05/18 0643 Date of Service: 11/05/18105 Status: Signed Hand Cutter Apprentice: WILLEM Moseley (Advanced Registered Nurse Practitioner) [facility] Speech/Language Therapist Service Progress Note Taurus Domínguez 53 y.o. [...] fifth of hard liquor per day, but [facility] documen tation indicates he quit years ago), and methamphetamine abuse who presents in transfer from [place] where he was being treated for new onset atrial fibrillation and cardiogenic ирина ck. He originally presented to the hospital in [place] after waking up on the morning of 11/02 with severe epigastric pain radiating up his chest. He c/o nausea, but denied vomiting. In [place], he was found to be in Afib with RVR, and was given a cardizem bolus. Tropon in was minimally elevated at this time, and he was hemodynamically stable. He was transferr ed to [facility] in [place] due to the need for cardiology consult. His epigastric pain had resolved at that time, and patient's rate was controlled but remained in atrial fib. After transfer to [place], patient remained on the cardizem drip. A [...] not previously known. Cardiogenic shock, developed at [place] on t afternoon of 11/03/18 after being on Cardizem. Patient had to be briefly paced due to symp tomatic bradycardia with rate down to the 30s. Patient was started on dopamine, norepinephr ine, and later added epinephrine. The tinner automatic service at [facility] was consulted, and the patient was transferred to our ICU for further management. ICU Timeline: 11/04: Pt admitted in transfer from [place], in cardiogenic shock. Pressors weaned th roughout [...] heels LINES/TUBES: RUE PICC line (11/03 at [place]), PIVs DATA Recent Labs Lab 11/05/18 0416 [...] stable. 4. No pneumothorax. Signed by: MD Ciaty, Jami Sign Date/Time: 11/04/2018 1:47 AM PROBLEM [...] an EF of 20% whil e at [place], so Cardizem was stopped. Cardiogenic shock - developed in the setting of calcium channel jenise use in pt with u nrecognized cardiomyopathy. Resolving. Weaned off epinephrine and levophed on 11/04. Coronary artery disease. Continue aspirin. Lipid panel was checked at [place] - all values normal. Essential hypertension. Antihypertensives were restarted - amlodipine, carvedilol, losa rtan. Thoracic aortic aneurysm without rupture. PULM: Patient was intubated for airway protection in the setting of cardiogenic shock. Extuba rao on 11/04. COPD/ panlobular emphysema. Albuterol PRN wheezing. History of tobacco use - documentation from [place] states he quit years ago. GI/NUTRITION: Epigastric [...] first dose receive d on 11/03 at [place] - stop date 11/07. Procalcitonin slightly elevated. Remains afebrile. Blood cultures in process. HEME: No anemia or thrombocytopenia. CBC daily. ENDO: TSH normal at [facility]. Implement Endotool if indicated per ICU protocol. [...] 11/04/181937 Date of Service: 11/04/181937 Status: Signed Hand Cutter Apprentice: Irina Martin RN (Registered Nurse) Dayshift chart audits completed. onver nicole Transaction, Provider Unknown - 11/04/2018 4:12 PM PST Case Management by Camryn Glover RN at 11/04/18 161 Author: Camryn Glover RN Service: (none) Author Type: Registered Nurse Filed: 11/04/18 1621 Date of Service: 11/04/18 161 Status: Signed Hand Cutter Apprentice: Camryn Glover RN (Registered Nurse) 11/04/18 1500 [...] does not drive/no drivers license Power of Cofounder No;Other (comment) (Given POA forms an traveling notary info) Anticipated Discharge Plan Post Acute Care Needs None at this time Plan communicated to patient/family Yes Resources Financial concerns No (Works PT) Transportation issues No (friends drive him places) Patient/Family concerns No Prescription Plan Yes Name of Pharmacy [facility] in [place], [place] Previous home health equipment No Vascular access device No Ostomy/Drains/Appliances No Anticipated Disposition Facility Type Home Met with pt and discussed discharge planning, explained role of CRM. Pt is a 53 y.o., male admitted with cardiogenic shock. Pt awake, A/O, appropriate. Pt stated he lives in [place], [place] in a house with a roommate. [...] he does not drive. He walks to [place] and his friend Taurus Salinas (ph# [phone]) drives him places. Stated his friend Taurus is not his roommate. Taurus lives in [place], [place]. Pt stated he is working with Faina lópez to become his POA for medical decision making but lost the form. Provided pt with Provide nce Advanced Directive forms and contact info for traveling notaries. 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 Discussed ETOH use. Pt stated he "has cut down" and no longer drinks very much hard liquor . He "hates beer" so does not drink it very much. Pt stated he has not used meth in many y ears. He does not go to or participate in any other OP substance abuse programs. Pt declined offer to speak to [facility] about substance/ETOH abuse. Declined offer of resources. Pt stated he plans to return home upon discharge and has no concerns at this time. Patient's PCP is: MYKEL SAENZ DO Patient's insurance: Medicaid-[facility] HR CLERK ([facility]) Coverage concerns: no concerns Medication coverage/concerns: has coverage/no concerns Community resources utilized / needed: none utilized/pt denies need of any resources at thi s time Assistance in transportation: stated his friend Tuarus will take him home Identification of any [...] Date of Service: 11/04/18 115 Status: Signed Hand Cutter Apprentice: Abigail Menjivar RRT (Registered Respiratory Therapist) Pt [...] 11/04/18155 Date of Service: 11/04/18155 Status: Signed Hand Cutter Apprentice: Xiomy Schwab RPH (Pharmacist) Clinical Pharmacy Note: Renal Monitoring Height: 175.3 cm Weight: 91 kg Serum Creatinine: 1.26 mg/dL (from [facility] 11/03/18) Estimated creatinine clearance - Cockcroft-Gault CrCl: Greater than 60 mL/min Per CareEverywhere labs from earlier in the day at [place] reported creatinine 0.63 mg/d L Currently there [...] [facility] [place] | | | | | | [address] | | | | | | | | +--------+---------+ + + + | 01/28/ | Office | Cardiology | Juan[facility]ann[facility] | | | 2019 | Visit | | SHIRA Garcia [address] | | | | | [address] | | | | | | [place] [address] | | | | | | [phone] | | | | | | | [...] 7.94 cm | | | AR Dec Grand: 2.59 m/s2 AR Dec Time: 1546.99 ms [...] TR maxP.56 mmHg TR Vmax: 2.57 m/s Laboratory Assistant: ESTUARDO | | | Authenticated by: Gabe [...] mlLAESV Index (A-L): 59.37 ml/m2LAAs A2C: 32.31 [id number] A-L A2C: 132.42 | | mlLALs A2C: 6.69 cmLAAs A4C: 29.99 [id number] A-L A4C: 96.05 mlLALs A4C: 7.94 cmAR | | Dec Grand: 2.59 m/s2AR Dec Time: 1546.99 msAR maxP.22 mmHgAR PHT: 448.62 | | msAR Vmax: 4.00 m/sHR: 109.18 BPMAV maxP.06 mmHgAV meanP.76 mmHgAV Vmax: | | 1.00 m/Neymar Vmean: 0.81 m/Neymar VTI: 21.36 cmAVA Vmax: 2.99 cm2AVA (VTI): 2.00 | | [id number] Vmax: 0.00 cm2/m2AVAI (VTI): 0.00 cm2/m2LVOT maxP.93 [...] 41.56 mmHgTR maxP.56 mmHgTR Vmax: 2.57 m/s Laboratory Assistant: | | MWAuthenticated by: Gabe [facility] Date/Time: 11-07-2018 13:10:35 IMPRESSION: 1. | [...] |LALs A4C: 7.94 cm | |AR Dec Grand: 2.59 m/s2 | |AR Dec Time: 1546.99 [...] |TR Vmax: 2.57 m/s | | | |Laboratory Assistant: ESTUARDO | |Authenticated by: Gabe Conrad | [...] | at [facility];[address] [place] [address] | | | | | | [facility];[place] [address] | | | | + + + [...] | | | Basophils | performed at [facility], [address] | [address] | LAB | | | | [address], | | | | | | [place] [address] | | | | + + + [...] | LAB | | | | [address];[place], [place] | | | | | | [address] | | | | + + + [...] | LAB | | | | [address];[place] | | | | | | [address] | | | | + + + [...] | | | | | | MDRD IDMN traceable | | | | | | equation.Testing | | | | | | performed at [facility] | | | | | | [facility];[place], [place] | | | | | | [address] | | | | + + + [...] | Historically converted procedure from [facility] Epic environment | EXTERNAL LAB | [...] | | | Basophils | performed at [facility], [address] | [address] | LAB | | | | [address], | | | | | | [place] [address] | | | | + + + [...] EXTERNAL | | | | performed at [facility], [address] | | LAB | | | | [address], | | | | | | [place] [address] | | | | + + + [...] EXTERNAL | | | | performed at [facility], [address] | | LAB | | | | [address], | | | | | | [place] [address] | | | | + + + [...] | | | | | performed at [facility], [address] | | | | | | [address], | | | | | | [place] [address] | | | | + + + [...] performed at [facility] | | | | | | [facility];[place], [place] | | | | | | [address] | | | | + + + [...] [place] | | | | | | [address] | | | | + + + [...] | | | Basophils | performed at [facility], [address] | [address] | LAB | | | | [address], | | | | | | [place] [address] | | | | + + + [...] | | | | | [place] [address] | | | | + + + [...] EXTERNAL | | | | performed at [facility], [address] | | LAB | | | | [address], | | | | | | [place] [address] | | | | + + + [...] | | | | | performed at [facility], [address] | | | | | | [facility] [address], | | | | | | [place] [address] | | | | + + + [...] [address];[place] [address] | | | | + + + [...] | LAB | | | | [address];[place], [place] | | | | | | [address] | | | | + + + [...] [address] | | | | | | [address];[place] [address] | | | | + + + [...] | LAB | | | | [address];[place], [place] | | | | | | [address] | | | | + + + [...] | LAB | | | | [address];[place] | | | | | | [address] | | | | + + + [...] | at [facility];[address] [place] [address] | | | | | | [facility];[place] [address] | | | | + + + [...] | | | Basophils | performed at [facility], [address] | [address] | LAB | | | | [address], | | | | | | [place] [address] | | | | + + + [...] | LAB | | | | [address];[place], [place] | | | | | | [address] | | | | + + + [...] performed at [facility] | | LAB | | | | [address];[place] | | | | | | [address] | | | | + + + [...] performed at [facility] | | | | | | [facility];[place], [place] | | | | | | [address] | | | | + + + [...] | at [facility];[address] [place] [address] | | | | | | [facility];[place] [address] | | | | + + + [...] performed at [facility] | | | | | | [address];[place] | | | | | | [address] | | | | + + + [...] | LAB | | | | [address];[place] | | | | | | [address] | | | | + + + [...] | LAB | | | | [address];[place], [place] | | | | | | [address] | | | | + + + [...] | LAB | | | | [address] [facility];[place], [place] | | | | | | [address] | | | | + + + [...] performed at [facility] | | | | | | [facility];[place], [place] | | | | | | [address] | | | | + + + [...] performed at [facility];[address] [place] [address];[place] [address] | | + + + + +---------+ [...] | LAB | | | | [address];[place] | | | | | | [address] | | | | + + + [...]
--- OUTSIDE RECORDS SUMMARY | ~2019-09-04 | XMS | Encounter Summary ---
Demographics + + + | Address | [address] | | | [place] [address] | + + + | Home Phone | | + + + | Preferred Language | Unknown | + + + | Marital Status | Unknown | + + + | Anabaptist Affiliation | Unknown | + + + [...] [place] | | | | | [address] | | + + + + + | Detailed Message | ECON | Unknown | | + + + + + Care Team Providers + +------+ + | Care Junior Designer Name | Role | Phone | + [...] | pulmonary disease, | | | | [place], | | unspecified COPD | | | | [place] [address] | | type (HCC) (Primary | | | | [phone] | | Dx) | +--------+ + + [...] [place] | | | | | | [address] | | | | | | | | +--------+---------+ + + + | 01/28/ | Office | Cardiology | Vannesa Martinez | | | 2019 | Visit | | [address] | | | | | | [address] | | | | | | [place] [address] | | | | | | [phone] | | | | | | | | +--------+---------+ + + + documented as of this encounter Results PFT PULMONARY FUNCTION TESTING ORDERS Full PFT ([place] w/BD, lung volumes, diffusion)?: Yes (02/06/2016 7:12 [...] [place] MD 02/06/2016 19:08 | | | [facility] CC: Daisy Stratton, | | | PA-C | | + + + documented in this encounter Visit Diagnoses + + | Diagnosis | + + | Chronic obstructive pulmonary disease, unspecified COPD type (HCC) - Primary | + + documented in this encounter"
--- OUTSIDE RECORDS SUMMARY | ~2019-09-04 | XMS | Clinical Summary ---
Demographics + + + | Address | [address] | | | [place] [address] | + + + | Home Phone | | + + + | Preferred Language | Unknown | + + + | Marital Status | Unknown | + + + | Yazidi Affiliation | Unknown | + + + | Race | Unknown | + + + | Ethnic Group | Unknown | + + + Author + + + | Author | [facility] [employer] (Historical as of | | | 04-19-19) | + + + | Organization | [facility] [employer] (Historical as of | | | 04-19-19) | + + + | Address | Unknown | + + + | Phone | Unavailable | + + + Support + + +---------+ + | Name | Relationship | Address | Phone | + + +---------+ + | Salinas,Aline | ECON | Unknown | | + + +---------+ + Care Team Providers + +------+ + | Care Senior Lead Project Manager Name | Role | Phone | [...] | | | + + +--------+---------+------+------+-------+ | spironolactone | Take 1 tablet by | 30 | 11 | 03/0 | 03/0 | Activ | | (ALDACTONE) 25 MG | mouth daily. | tablet | | 8/20 | 7/20 | e | | tablet | | [...] 20 | | + + +--------+---------+------+------+-------+ | aspirin 81 MG | Take 81 mg by mouth | | | | | Activ | | tablet | daily. | | | | | e | + + +--------+---------+------+------+-------+ | torsemide | Take 1 tablet by | 60 | 2 | 04/2 | 04/2 | Activ | | (DEMADEX) 20 MG | mouth daily as | tablet | | 4/20 | 3/20 | e | | tablet | needed. For lower | | | 19 | 20 | | | | ext ankles edema or | | | | | | | | weight gain | | | | | | + + +--------+---------+------+------+-------+ | warfarin | TAKE 1 TABLET BY | 60 | 1 | 05/0 | | Activ | | (COUMADIN) 5 MG | MOUTH ONCE DAILY | tablet | | 8 | | e | | tablet | | | | 19 | | | + + +--------+---------+------+------+-------+ Active Problems + + + | Problem | Noted Date | + + + | Chronic systolic congestive heart failure (HCC) | 11/13/2018 | + + + | Chronic atrial fibrillation (HCC) | 11/03/2018 | + + + | Cerebrovascular accident (CVA) due to thrombosis of cerebral | 11/09/2017 | | artery (HCC) | | + + + | History [...] | SWEETIE (acute kidney injury) (HCC) | 11/05/19 | | | | 19 | 9 | + + + + | Cardiogenic shock (HCC) | 11/04/19 | | | | 19 | 9 | + + + + | Troponin level elevated | 11/04/19 | | | | 19 | 9 | + + + + | Alcohol abuse | 05/03/20 | | | | 17 | 9 | + + + + | Alcohol dependence (HCC) | 06/01/20 | | | | 16 [...] | 8 | + + + + Immunizations + + + + | Name [...] + + + | Blood Pressure | 112/60 | 03/19/2019 11:11 AM PDT | + + + + | Pulse | 88 | 03/19/2019 11:11 AM PDT | + + + + | Temperature | 36.4 C (97.6 F) | 12/12/2018 4:15 PM PDT | + + + + | Respiratory Rate | 16 | 12/12/2018 4:15 PM PDT | + + + + | Oxygen Saturation | 96% | 03/19/2019 11:11 AM PDT | + + + + | Inhaled Oxygen | - | - | | Concentration | | | + + + + | Weight | 88.9 kg (196 lb) | 03/19/2019 11:11 AM PDT | + + + + | Height | 175.3 cm (5' 9") | 03/19/2019 11:11 AM PDT | + + + + | Body Mass Index | 28.94 | 03/19/2019 11:11 AM PDT | + + + + [...] filefrom Last 3 Months Insurance + +--------+ +------+-------+ + | Payer | Benefi | Subscriber | Type | Phone | Address | | | t Plan | ID | | | | | | / | | | | | | | Group | | | | | + +--------+ +------+-------+ + | MEDICAID | [place] | [id number] | | | [address] | | | [place] | | | | [place] | | | [place] | | | | [address] | | | [employer] | | | | | + +--------+ [...] | [birth year] | Work: | [address] | | | al/Fam | | 1965 | [phone] [place] | | | [address] | | | [address]: | [address] | | | | | | | | | | | | | [phone] | | | | | | [phone] | | + +--------+ +--------+ + +
--- OUTSIDE RECORDS SUMMARY | ~2019-09-04 | XMS | Encounter Summary ---
Demographics + + + | Address | [address] | | | [place] [address] | + + + | Home Phone | | + + + | Preferred Language | Unknown | + + + | Marital Status | Unknown | + + + | Yarsani Affiliation | Unknown | + + + | Race | Unknown | + + + | Ethnic Group | Unknown | + + + Author + + + | Author | [facility] | | | and [place] | + + + | Organization | [facility] | | | and [place] | + + + | Address | Unknown | + + + | Phone | Unavailable | + + + Support + + + + + | Name | Relationship | Address | Phone | + + + + + | Taurus Salinas | ECON | [place] | | | | | [address] | | + + + + + | Detailed Message | ECON | Unknown | | + + + + + Care Team Providers + +------+ + | Care Brick Carrier Name | Role | Phone | + +------+ + | Kenny Hernandez DO | PCP | | + +------+ + Reason for Visit +--------+ + | Reason | Comments | +--------+ + | Other | urgent report | +--------+ + Encounter Details +--------+ + + + + | Date | Type | Department | Care Team | Description | +--------+ + + + + | 04/24/ | Documentati | [facility] | Kelsie Reddy, | Other (urgent | | 2019 | on | CARDIOLOGY [place] | Technologist | report) | | | | [address] | | | | | | [place] | | | | | | [address] | | | | | | [phone] | | | +--------+ + + + [...] encounter Progress Notes Kelsie Reddy, Technologist - 04/24/2019 11:27 AM PDTPt had a urgent report 04/24/19 at 10 :52 for possible afib > 200 BPM 30 day monitor was placed 03/27/19 Medications: aspirin 325 mg tablet aspirin 81 mg EC tablet carvedilol (COREG) 25 mg tablet warfarin (COUMADIN) 5 mg tablet Called pt and he said he is feeling fine but is bruising very easy. His left leg was hurti ng? Will continue to monitor Please see attachment Associated attestation - Gabe Conrad MD - 04/24/2019 1:06 PM PDTPatient is referred for EP evaluation.documented in this encounter Plan of Treatment +--------+---------+ + + + | Date | Type | Specialty | Care Team | Description | +--------+---------+ + + + | 09/30/ | Office | Cardiology | Samm Malik, | | | 2019 | Visit | | MD [address] | | | | | | [place] | | | | | | [address] | | | | | | | | +--------+---------+ + + + | 01/28/ | Office | Cardiology | Vannesa Martinez | | | 2019 | Visit | | [address] | | | | | | [address] | | | | | | [place] [address] | | | | | | [phone] | | | | | | | | +--------+---------+ + + + documented as of this encounter Visit Diagnoses Not on filedocumented in this encounter"
--- OUTSIDE RECORDS SUMMARY | ~2019-09-04 | XMS | Encounter Summary ---
Demographics + + + | Address | [address] | | | [place] [address] | + + + | Home Phone [...] + | Author | [facility] | | | and [place] | + + + | Organization | [facility] | | | and [place] | + + + | Address | Unknown | + + + | Phone | Unavailable | + + + Support + + + + + | Name | Relationship | Address | Phone | + + + + + | Taurus Salinas | ECON | [place] | | | | | [address] | | + + + + + | Detailed Message | ECON | Unknown | | + + + + + Care Team Providers + +------+ + | Care Sales Representative Consultant Name | Role | Phone | + +------+ + | Kenny Hernandez DO | PCP | | + +------+ + Encounter Details +--------+ + + + + | Date | Type | Department | Care Team | Description | +--------+ + + + + | 04/24/ | Abstract | [facility] [place] | [facility], | | | 2016 | | GASTROENTEROLOGY | [address] | | | | | [address] | [place], [address] | | | | | [address] [place], [place] | [place], [place] | | | | | [address] | [address] | | | | | [phone] | | | +--------+ + + + [...] | | | | | | [place] [facility] [place] | | | | | | [address] | | | | | | | | +--------+---------+ + + + | 01/28/ | Office | Cardiology | Vannesa Martinez | | | 2019 | Visit | | [address] | | | | | | [address] | | | | | | [place] [address] | | | | | | [phone] | | | | | | | [...] - 1.03 | EXTERNAL | | | [place], | | | LAB | | | [...]
--- OUTSIDE RECORDS SUMMARY | ~2019-09-04 | XMS | Clinical Summary ---
Demographics + + + | Address | [address] | | | [place] [address] | + + + | Home Phone | | + + + | Preferred Language | Unknown | + + + | Marital Status | Unknown | + + + | Mandaeism Affiliation | Unknown | + + + | Race | Unknown | + + + | Ethnic Group | Unknown | + + + Author + + + | Author | [facility] [employer] [facility] (Historical as of | | | 04-19-19) | + + + | Organization | [facility] [employer] [facility] (Historical as of | | | 04-19-19) [...] Team Providers + +------+ + | Care City Planning Aide Name | Role | Phone | [...] +------+-------+ + | MEDICAID | [place] | [id number] | | | [address] | | | N | | | | [place] | | | [place] | | | | [address] | | | CHIEF VENDOR QUALITY | | | | | + +--------+ [...] | | al/Fam | | 1965 | [phone] | [place] | | | [address] | | | [address]: | [address] | | | | | | | | | | | | | [phone] | | | | | | | [phone] | | + +--------+ +--------+ + +
--- OUTSIDE RECORDS SUMMARY | ~2019-09-04 | XMS | Encounter Summary ---
Demographics + + + | Address | [address] | | | [place] [address] | + + + | Home Phone | | + + + | Preferred Language | Unknown | + + + | Marital Status | Unknown | + + + | Rastafarian Affiliation | Unknown | + + + [...] | [place] | | | | | [address] | | + + + + + | Detailed Message | ECON | Unknown | | + + + + + Care Team Providers + +------+ + | Care Operation Supervisor Name | Role | Phone | + [...] | | | | [address] | [place], [place] | | | | | | [place], [place] | [address] Phone: | | | | | | [address] | [phone] | | | | | | Phone: | Fax: | | | | | | [phone] | [phone] | | | | | | Fax: | | | | | | | [phone] | | + + + + + + + Encounter Details +--------+ + + + + | Date | Type | Department | Care Team | Description | +--------+ + + + + | 04/23/ | Orders Only | [facility] | Gabe Conrad, | Persistent atrial | | 2019 | | CARDIOLOGY [place] | MD [address] | fibrillation (HCC) | | | | [address] | [place], [place] | | | | | [address] | [address] | | | | | [place], [place] | | | | | | [address] | | | | | | [phone] | | | +--------+ + + + [...] [place] | | | | | | [address] | | | | | | | | +--------+---------+ + + + | 01/28/ | Office | Cardiology | Vannesa Martinez | | | 2019 | Visit | | [address] | | | | | | [address] | | | | | | [place] [address] | | | | | | [phone] | | | | | | | | +--------+---------+ + + + + + +--------+ + + | Name | Type | Priori | Associated Diagnoses | Order Schedule | | | | ty | | | + + +--------+ + + | Ambulatory referral | Outpatient | Routin | Persistent atrial | Ordered: 04/23/2019 | | to [facility]erged With [facility] | Referral | e | [...]
--- OUTSIDE RECORDS SUMMARY | ~2019-09-04 | XMS | Encounter Summary ---
Demographics + + + | Address | [address] | | | [place] [address] | + + + | Home Phone | | + + + | Preferred Language | Unknown | + + + | Marital Status | Unknown | + + + | Latter-Day Affiliation | Unknown | + + + | Race | Unknown | + + + | Ethnic Group | Unknown | + + + Author + + + | Author | [facility] | | | and [place] | + + + | Organization | [facility] | | | and [place] | + + + | Address | Unknown | + + + | Phone | Unavailable | + + + Support + + + + + | Name | Relationship | Address | Phone | + + + + + | Taurus Salinas | ECON | [place] | | | | | [address] | | + + + + + | Detailed Message | ECON | Unknown | | + + + + + Care Team Providers + +------+ + | Care Traveling Sales Executive Name | Role | Phone | + [...] | | | | | | | [place] | | | | | | | ESOPHAGOGAST | | | | | | | RODUODENOSCO | | | | | | | PY TRANSORAL | | | | | | | DIAGNOSTIC | | | | | | | [place] EGD | | | | | | | TRANSORAL | | | | | | | BIOPSY | | | | | | | SINGLE/MULTI | | | | | | | PLE [place] | | | | | | | COLONOSCOPY | | | | | | | FLX DX | | | | | | | W/COLLJ SPEC | | | | | | | WHEN PFRMD | | | | | | | [place] | | | | | | | COLONOSCOPY | | | | | | | W/BIOPSY | | | | | | | SINGLE/MULTI | | | | | | | PLE [place] | | | | | | | COLSC FLX | | | | | | | W/RMVL OF | | | | | | | TUMOR POLYP | | | | | | | LESION SNARE | | | | | | | TQ [place] | | | | | | | ANESTH,UGI | | | | | | | ENDOSCOPY | | | | | | | [place] | | | | | | | [...] + + + + | 05/25/ | [facility] | [facility] | Glen Dahl MD | Dysphagia, | | 2017 | Encounter | [facility] | [address] | unspecified type; | | | | [address] | [place] | Gastroesophageal | | | | [place] | [address] | reflux disease, | | | | [address] | [phone] | esophagitis presence | | | | [phone] | | not specified; | | | | | | Special screening | | | | | | for malignant | | | | | | neoplasms, colon | +--------+ + + + + Social [...] the physician who did your procedure at [phone] if you have any questions or experience any of the following: ? Increasing abdominal pain, nausea, or vomiting. ? Chills and fever over 101F. ? New abdominal swelling or bloating. ? Signs of rectal bleeding (black or red stool). If you cannot get a hold of your physician, then call the [facility] [phone] . If necessary, report to the Emergency Department at [facility]. Quit smoking: If you smoke or have [...] [place] | | | | | | [address] | | | | | | | | +--------+---------+ + + + | 01/28/ | Office | Cardiology | Vannesa Martinez | | | 2019 | Visit | | [address] | | | | | | [address] | | | | | | [place] [address] | | | | | | [phone] | | | | | | | [...] | [facility] | | GastroenterologyPatient Name: Taurus JasminerogerlProcedure Date: 05/25/2017 | PROVATION | | 1:01 PMMRN: [id number] #: [id number] of : | | | 1965Admit Type: AmbulatoryAge: 52Room: [facility] 02Gender: MaleNote | | | Status: FinalizedAttending MD: Glen Dahl , MDProcedure: | | | Upper GI endoscopyIndications: Dysphagia, [...] | | | the anesthesiologist and the film laboratory technician in the pre-procedure | | [...] | In: 1:14:56 PMScope Out: 1:27:04 PM [facility] | | | [place], [address] [place] [address] | | | - Continue present medications. [...] |Scope Out: 1:27:04 PM | | | [facility], [address] [place] [address] | | | [address] | | + + -+ + +---------+ [...] | [facility] | | GastroenterologyPatient Name: Taurus JasmineDiannedkrista Date: 05/25/2017 | PROVATION | | 1:00 PMMRN: [id number] #: [id number] of : | | | 1965Admit Type: AmbulatoryAge: 52Room: [facility] 02Gender: MaleNote | | | Status: FinalizedAttending MD: Glen Dahl MDProcedure: | | | ColonoscopyIndications: Screening for colorectal | | | malignant neoplasmProviders: Glen Dahl MD, Adriane | | | JASON Arita, Dong Bartlett, [facility], | | | MARK CHERRY DO (Anesthesia [...] the anesthesiologist and the | | | film laboratory technician in the pre-procedure area in [...] | | Initiated On: 05/25/2017 1:00 PM [facility] | | | Center, [address] [place] [address] | | | - Resume previous diet. [...] On: 05/25/2017 1:00 PM | | | [facility], [address] [place] [address] | | | [phone] | | + + -+ + +---------+ [...] negative for fungal | | | organisms. JVR:[facility] FINAL PATHOLOGIC DIAGNOSIS: A. Gastric biopsies: | [...] Clinical correlation is requested. | | | JVR:[facility]:C2NR GROSS DESCRIPTION: The specimen is received in eight | | | parts. A. The specimen is labeled "Verrall Taurus Ro" and designated | | | "gastric bxs" on the requisition. Received in formalin are four de león | | | colored tissue fragments, 0.25-0.5 cm, all into (A1). B. The specimen | | | is labeled "Verrall Taurus Ro" and designated "duodenal bxs" on the | | | requisition. Received in formalin are five de león colored tissue | | | fragments, 0.1-0.38 cm, all into (B1). C. The specimen is labeled | | | "Verrall Taurus Ro" and designated "GE junction" on the requisition. | | | Received in formalin are two de león colored tissue fragments, 0.15-0.3 | | | cm, all into (C1). D. The specimen is labeled "Verrall Taurus Ro" | | | and designated "esophageal bxs" on the requisition. Received in | | | formalin are seven cream to del eón colored tissue fragments, 0.1-0.45 cm, | | | all into (D1). E. The specimen is labeled "Verrall, Taurus Ro" and | | | designated "cecal polyp" on the requisition. Received in formalin are | | | two de león colored tissue fragments, 0.3-0.4 cm, all into (E1). F. The | | | specimen is labeled "Verrall Taurus Ro" and designated "random colon | | | bxs" on the requisition. Received in formalin are seven de león colored | | | tissue fragments, 0.25-0.3 cm, all into (F1). G. The specimen is | | | labeled "Verrall, Taurus Ro" and designated "sigmoid colon polyps" on [...] (G1) also. H. The specimen is labeled "Taurus Domínguez" and | | | designated "rectal polyps" on the requisition. Received in formalin | | | are two cream de león to dark de león colored tissue fragments, 0.2-0.7 cm, | | | all into (H1). yt:SUN:bonnie PERFORMING LABORATORY: Tissue processing | | | and slide preparation were performed by [facility], [address] | | [facility], [address], [place] [address] (Perfume Maker: Caesar | | Raya Su M.D. CLIA#: [id number]). Professional interpretation was | | | performed by [facility], [facility] | | | Branch, [address], [place] [address] (Perfume Maker: | | | Caesar Su M.D.; CLIA#: [id number]). Diagnostician: Caesar Reyes | | | Georges [...] + | Diagnosis | + + | Dysphagia, unspecified type | + + | Gastroesophageal reflux disease, esophagitis presence not specified | + + | Special screening for malignant neoplasms, colon | + + documented in this encounter Administered Medications + +--------+---------+------+------+------+ [...] mL/hr | Arm | | CONTINUOUS, Starting 05/25/17 | | PM PDT | | | | | at 1230, TKO., Pre-op | | | | | | + +---------+ +---+-------+--------+ + +---+ | | | + +---+ | ondansetron (ZOFRAN) injection | | | 4 mg 4 mg, Intravenous, PRN, | | | Nausea, Vomiting, Starting Fri | | | 05/25/17 at 1211, Pre-op [...]
--- OUTSIDE RECORDS SUMMARY | ~2019-09-04 | XMS | Encounter Summary ---
Demographics + + + | Address | [address] | | | [place] [address] | + + + | Home Phone | | + + + | Preferred Language | Unknown | + + + | Marital Status | Unknown | + + + | Restoration Affiliation | Unknown | + + + | Race | Unknown | + + + | Ethnic Group | Unknown | + + + Author + + + | Author | [facility] | | | and [place] | + + + | Organization | [facility] | | | and [place] | + + + | Address | Unknown | + + + | Phone | Unavailable | + + + Support + + + + + | Name | Relationship | Address | Phone | + + + + + | Taurus Salinas | ECON | [place] | | | | | [address] | | + + + + + | Detailed Message | ECON | Unknown | | + + + + + Care Team Providers + +------+ + | Care Real Estate Financial Analyst Name | Role | Phone | [...] + + | 03/27/ | Documentati | [facility] | Kelsie Reddy, | Other (end of study) | | 2019 | on | CARDIOLOGY [place] | Technologist | | | | | [address] | | | | | | [place], [place] | | | | | | [address] | | | | | | [phone] | | | +--------+ + + + [...] Conclusion: 1. 30-day event monitor, total of [id number] recorded. 2. Patient was in atrial fibrillation. [...] | | | | | [place] | | | | | | [id number] | | | | | | | | +--------+---------+ + + + | 01/28/ | Office | Cardiology | Vannesa Martinez | | | 2019 | Visit | | [address] | | | | | | [address] | | | | | | [place] [address] | | | | | | [phone] | | | | | | | | +--------+---------+ + + + documented as of this encounter Visit Diagnoses + + | Diagnosis | + + | Chronic atrial fibrillation Atrial fibrillation | + + | Chronic systolic congestive heart failure (HCC) Chronic systolic heart failure | + + documented in this encounter"
--- OUTSIDE RECORDS SUMMARY | ~2019-09-04 | XMS | Encounter Summary ---
Demographics + + + | Address | [address] | | | [place] [address] | + + + | Home Phone [...] | [place] | | | | | [address] | | + + + + + | Detailed Message | ECON | Unknown | | + + + + + Care Team Providers + +------+ + | Care Pumper Hand Name | Role | Phone | [...] | | | | | | | [place] | | | | | | | ESOPHAGOGAST | | | | | | | RODUODENOSCO | | | | | | | PY TRANSORAL | | | | | | | DIAGNOSTIC | | | | | | | [place] EGD | | | | | | | TRANSORAL | | | | | | | BIOPSY | | | | | | | SINGLE/MULTI | | | | | | | PLE [place] | | | | | | | COLONOSCOPY | | | | | | | FLX DX | | | | | | | W/COLLJ SPEC | | | | | | | WHEN PFRMD | | | | | | | [place] | | | | | | | COLONOSCOPY | | | | | | | W/BIOPSY | | | | | | | SINGLE/MULTI | | | | | | | PLE [place] | | | | | | | COLSC FLX | | | | | | | W/RMVL OF | | | | | | | TUMOR POLYP | | | | | | | LESION SNARE | | | | | | | TQ [place] | | | | | | | ANESTH,UGI | | | | | | | ENDOSCOPY | | | | | | | [place] | | | | | | | [...] | | | | | [address] | [place] | | | | | [place] | [address] | | | | | [address] | | | | | | [phone] | | | +--------+ + + + [...] 05/25/17 1425 by | | eral | fgbl-crp-fmxcbt catheter system; | [address]OSSELYN ARGUELLO | Stephanie [...] [place] | | | | | | [address] | | | | | | | | +--------+---------+ + + + | 01/28/ | Office | Cardiology | Vannesa Martinez | | | 2019 | Visit | | [address] | | | | | | [address] | | | | | | [place] [address] | | | | | | [phone] | | | | | | | [...]
--- OUTSIDE RECORDS SUMMARY | ~2019-09-04 | XMS | Encounter Summary ---
Demographics + + + | Address | [address] | | | [place] [address] | + + + | Home Phone | | + + + | Preferred Language | Unknown | + + + | Marital Status | Unknown | + + + | Hoahaoism Affiliation | Unknown | + + + | Race | Unknown | + + + | Ethnic Group | Unknown | + + + Author + + + | Author | [facility] | | | and [place] | + + + | Organization | [facility] | | | and [place] | + + + | Address | Unknown | + + + | Phone | Unavailable | + + + Support + + + + + | Name | Relationship | Address | Phone | + + + + + | Taurus Salinas | ECON | [place] | | | | | [address] | | + + + + + | Detailed Message | ECON | Unknown | | + + + + + Care Team Providers + +------+ + | Care Master Ocean Yacht Name | Role | Phone | + +------+ + | Daisy Jane | PCP | | | PA-C | | | + +------+ + Encounter Details +--------+ + + + + | Date | Type | Department | Care Team | Description | +--------+ + + + + | 01/19/ | Orders Only | [facility] [place] | Offenstein, | Panlobular emphysema | | 2015 | | PULMONARY [address] | Camille Wu MD | ([facility]); Thoracic | | | | [place], | | aortic aneurysm | | | | [place] [address] | | without rupture | | | | [phone] | | ([facility]); Intractable | | | | | | hiccups; Heartburn | +--------+ + + + + Social [...] | | | | | [place], [place] | | | | | | [address] | | | | | | | | +--------+---------+ + + + | 01/28/ | Office | Cardiology | Juan Vannesa | | | 2019 | Visit | | [address] | | | | | | [address] | | | | | | [place] [address] | | | | | | [phone] | | | | | | | | +--------+---------+ + + + documented as of this encounter Visit Diagnoses + + | Diagnosis | + + | Panlobular emphysema (HCC) Other emphysema | + + | Thoracic aortic aneurysm without rupture (HCC) Thoracic aneurysm without mention of | | rupture | + + | Intractable hiccups Hiccough | + + | Heartburn | + + documented in this encounter"
--- OUTSIDE RECORDS SUMMARY | ~2019-09-04 | XMS | Encounter Summary ---
Demographics + + + | Address | [address] | | | [place] [address] | + + + | Home Phone | | + + + | Preferred Language | Unknown | + + + | Marital Status | Unknown | + + + | Buddhist Affiliation | Unknown | + + + | Race | Unknown | + + + | Ethnic Group | Unknown | + + + Author + + + | Author | [facility] | | | and [place] | + + + | Organization | [facility] | | | and [place] | + + + | Address | Unknown | + + + | Phone | Unavailable | + + + Support + + + + + | Name | Relationship | Address | Phone | + + + + + | Taurus Salinas | ECON | [place] | | | | | [address] | | + + + + + | Detailed Message | ECON | Unknown | | + + + + + Care Team Providers + +------+ + | Care Rodding Machine Tender Name | Role | Phone | + [...] | | | | | | | [place] | | | | | | | ESOPHAGOGAST | | | | | | | RODUODENOSCO | | | | | | | PY TRANSORAL | | | | | | | DIAGNOSTIC | | | | | | | [place] EGD | | | | | | | TRANSORAL | | | | | | | BIOPSY | | | | | | | SINGLE/MULTI | | | | | | | PLE [place] | | | | | | | COLONOSCOPY | | | | | | | FLX DX | | | | | | | W/COLLJ SPEC | | | | | | | WHEN PFRMD | | | | | | | [place] | | | | | | | COLONOSCOPY | | | | | | | W/BIOPSY | | | | | | | SINGLE/MULTI | | | | | | | PLE [place] | | | | | | | COLSC FLX | | | | | | | W/RMVL OF | | | | | | | TUMOR POLYP | | | | | | | LESION SNARE | | | | | | | TQ [place] | | | | | | | ANESTH,UGI | | | | | | | ENDOSCOPY | | | | | | | [place] | | | | | | | [...] + + + + | 05/25/ | [facility] | [facility] | Glen Dahl MD | Dysphagia, | | 2017 | Encounter | MED CTR MP INTRA OP | [address] | unspecified type; | | | | [address] | [place] | Gastroesophageal | | | | [place] | [address] | reflux disease, | | | | [address] | [phone] | esophagitis presence | | | | [phone] | | not specified; | | | [...] the physician who did your procedure at [phone] if you have any questions or experience any of the following: ? Increasing abdominal pain, nausea, or vomiting. ? Chills and fever over 101F. ? New abdominal swelling or bloating. ? Signs of rectal bleeding (black or red stool). If you cannot get a hold of your physician, then call the [facility] [phone] . If necessary, report to the Emergency Department at [facility]. Quit smoking: If you smoke or have [...] [place] | | | | | | [address] | | | | | | | | +--------+---------+ + + + | 01/28/ | Office | Cardiology | Vannesa Martinez | | | 2019 | Visit | | [address] | | | | | | [address] | | | | | | [place] [address] | | | | | | [phone] | | | | | | | [...] 05/25/2017 | PROVATION | | 1:01 PMMRN: [id number] #: [id number] of : | | | 1965Admit Type: AmbulatoryAge: 52Room: [facility] 02Gender: MaleNote | | | Status: [...] | | | the anesthesiologist and the bomb technician in the pre-procedure | | | [...] | In: 1:14:56 PMScope Out: 1:27:04 PM [facility] | | | [place], [address] [place] [address] | | | - Continue present medications. [...] |Scope Out: 1:27:04 PM | | | [facility], [address] [place] [address] | | | [address] | | + + -+ + +---------+ [...] 05/25/2017 | PROVATION | | 1:00 PMMRN: [id number] #: [id number] of : | | | 1965Admit Type: AmbulatoryAge: 52Room: [facility] 02Gender: MaleNote | | | Status: FinalizedAttending MD: Glen Dahl MDProcedure: | | | ColonoscopyIndications: Screening for colorectal | | | malignant neoplasmProviders: Glen Dahl MD, Adriane | | | JASON Arita, Dong Bartlett, [facility], | | | MARK CHERRY DO (Anesthesia [...] the anesthesiologist and the | | | bomb technician in the pre-procedure area in the [...] | | Initiated On: 05/25/2017 1:00 PM [facility] | | | Center, [address] [place] [address] | | | - Resume previous diet. [...] On: 05/25/2017 1:00 PM | | | [facility], [address] [place] [address] | | | [address] | | + + -+ + +---------+ [...] negative for fungal | | | organisms. JVR:[facility] FINAL PATHOLOGIC DIAGNOSIS: A. Gastric biopsies: [...] Clinical correlation is requested. | | | JVR:[facility]:C2NR GROSS DESCRIPTION: The specimen is received [...] | and slide preparation were performed by [facility], [address] | | [facility], [address], [place] [address] (Drug And Alcohol Counselor: Caesar | | Raya Su M.D. CLIA#: [id number]). Professional interpretation was | | | performed by [employer], [facility] | | | Branch, [address], [place] [address] (Drug And Alcohol Counselor: | | | Caesar Su M.D.; CLIA#: [id number]). Diagnostician: Caesar Reyes | | | Georges [...]
--- OUTSIDE RECORDS SUMMARY | ~2019-09-04 | XMS | Encounter Summary ---
Demographics + + + | Address | [address] | | | [place] [address] | + + + | Home Phone | | + + + | Preferred Language | Unknown | + + + | Marital Status | Unknown | + + + | Jewish Affiliation | Unknown | + + + [...] [place] | | | | | [address] | | + + + + + | Detailed Message | ECON | Unknown | | + + + + + Care Team Providers + +------+ + | Care Administrative Services Manager Name | Role | Phone | [...] + + | 08/30/ | Telephone | [facility] | Glen Dahl MD | EGD | | 2017 | | GASTROENTEROLOGY | [address] | | | | | [address] [facility] | [place], [place] | | | | | [address] [place], [place] | [address] | | | | | [address] | [phone] | | | | | [phone] | | | +--------+ + + + [...] [place] | | | | | | [address] | | | | | | | | +--------+---------+ + + + | 01/28/ | Office | Cardiology | Vannesa Martinez | | | 2019 | Visit | | [address] | | | | | | [address] | | | | | | [place] [address] | | | | | | [phone] | | | | | | | | +--------+---------+ + + + documented as of this encounter Visit Diagnoses Not on filedocumented in this encounter"
--- OUTSIDE RECORDS SUMMARY | ~2019-09-04 | XMS | Encounter Summary ---
Demographics + + + | Address | [address] | | | [place] [address] | + + + | Home Phone | | + + + | Preferred Language | Unknown | + + + | Marital Status | Unknown | + + + | Latter-Day Affiliation | Unknown | + + + | Race | Unknown | + + + | Ethnic Group | Unknown | + + + Author + + + | Author | [facility] | | | and [place] | + + + | Organization | [facility] | | | and [place] | + + + | Address | Unknown | + + + | Phone | Unavailable | + + + Support + + + + + | Name | Relationship | Address | Phone | + + + + + | Taurus Salinas | ECON | [place] | | | | | [address] | | + + + + + | Detailed Message | ECON | Unknown | | + + + + + Care Team Providers + +------+ + | Care Gear Lapper Name | Role | Phone | + [...] | | | | [address] [place] | | | | | | [address] | | | | | | [phone] | | | +--------+ + + + [...] [place] | | | | | | [address] | | | | | | | | +--------+---------+ + + + | 01/28/ | Office | Cardiology | Vannesa Martinez | | | 2019 | Visit | | [address] | | | | | | [address] | | | | | | [place] [address] | | | | | | [phone] | | | | | | | | +--------+---------+ + + + documented as of this encounter Visit Diagnoses Not on filedocumented in this encounter"
--- OUTSIDE RECORDS SUMMARY | ~2019-09-04 | XMS | Encounter Summary ---
Demographics + + + | Address | [address] | | | [place] [address] | + + + | Home Phone | | + + + | Preferred Language | Unknown | + + + | Marital Status | Unknown | + + + | Synagogue Affiliation | Unknown | + + + | Race | Unknown | + + + | Ethnic Group | Unknown | + + + Author + + + | Author | [facility] | | | and [place] | + + + | Organization | [facility] | | | and [place] | + + + | Address | Unknown | + + + | Phone | Unavailable | + + + Support + + + + + | Name | Relationship | Address | Phone | + + + + + | Taurus Salinas | ECON | [place] | | | | | [address] | | + + + + + | Detailed Message | ECON | Unknown | | + + + + + Care Team Providers + +------+ + | Care Soaker Soda Worker Name | Role | Phone | [...] + + | 04/24/ | Documentati | [facility] | Kelsie Reddy, | Other (urgent | | 2019 | on | [facility]ARDI[facility] [place] | Technologist | report) | | | | [address] | | | | | | [place] | | | | | | [address] | | | | | | [phone] | | | +--------+ + + + [...] [place] | | | | | | [address] | | | | | | | | +--------+---------+ + + + | 01/28/ | Office | Cardiology | Vannesa Martinez | | | 2019 | Visit | | [address] | | | | | | [address] | | | | | | [place] [address] | | | | | | [phone] | | | | | | | | +--------+---------+ + + + documented as of this encounter Visit Diagnoses Not on filedocumented in this encounter"
--- OUTSIDE RECORDS SUMMARY | ~2019-09-04 | XMS | Encounter Summary ---
Demographics + + + | Address | [address] | | | [place] [address] | + + + | Home Phone [...] + + + | Author | [facility] | | | and [place] | + + + | Organization | [facility] | | | and [place] | + + + | Address | Unknown | + + + | Phone | Unavailable | + + + Support + + + + + | Name | Relationship | Address | Phone | + + + + + | Taurus Salinas | ECON | [place] | | | | | [address] | | + + + + + | Detailed Message | ECON | Unknown | | + + + + + Care Team Providers + +------+ + | Care Granite Sandblaster Apprentice Name | Role | Phone | + [...] | | | | | Procedures | [address] | AVE | | | | | FL UGI | [place], | [place], [place] | | | | | | [place] [address] | [address] | | | | | | | Phone: | | | | | | | [phone] | | | | | | | Fax: | | | | | | | [phone] | +--------+--------+ + + + + Diagnostic/Screening [...] | | | | | without | [address] | AVE | | | | | rupture | [place], | [place], [place] | | | | | ([facility]) | [place] [address] | [address] | | | | | Procedures | | Phone: | | | | | ECHO | | [phone] | | | | | Complete [place] | | Fax: | | | | | ECHO HEART | | [phone] | | | | | XTHORACIC,[place] | | | | | | | MPLETE W | | | | | | | DOPPLER [place] | | | | | | | [...] | HOSPITAL | | | | | ([facility]) | MD [address] | [address] | | | | | Thoracic | [address] | AVE | | | | | aortic | [place], | [place], [place] | | | | | aneurysm | [place] [address] | [address] | | | | | without | | Phone: | | | | | rupture | | [phone] | | | | | ([facility]) | | Fax: | | | | | Intractable | | [phone] | | | | | hiccups | [...] | | pulmonary | PA-C [address] | | | | | disease, | [address] | [place], | | | | | unspecified | Ave | [place] [address] | | | | | (HCC) | [place], | | | | | | Procedures | [place] | | | | | | [place] | [address] | | | | | | CONSULT | Phone: | | | | | | | [phone] | | | | | | | Fax: | | | | | | | [phone] | | +--------+--------+ + + + + Encounter Details +--------+---------+ + + + | Date | Type | Department | Care Team | Description | +--------+---------+ + + + | 01/19/ | Office | [facility] | Offenstein, | Shortness of breath; | | 2015 | Visit | PULMONARY [address] | Camille Wu MD | Panlobular | | | | [place], | | emphysema (HCC); | | | | [place] [address] | | Thoracic aortic | | | | [phone] | | aneurysm without | | | [...] for a nebulizer machine to [facility] in [place] and you can get this there. Start on albuterol/ipratropium nebulizers twice daily, [facility] You can use this up to every 6 hours as needed. 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 and on ultrasound he had a 4.5cm [...] made to ensure accuracy; however, inadvertent computerized paper products printer errors may be pre sent. Electronically signed [...] [place] | | | | | | [id number] | | | | | | | | +--------+---------+ + + + | 01/28/ | Office | Cardiology | Vannesa Martinez | | | 2020 | Visit | | [address] | | | | | | [address] | | | | | | [place] [address] | | | | | | [phone] | | | | | | | [...] mL/min/1.73m2 | [facility] | | | [place]AI[place]ESE | RATE,ESTIMATED | | MEDICAL | | | | mL/min/1.90t1Osas than | | CENTER - | | [...] [address] | [place] | [phone] | | [facility] | | [address] | | | - LABORATORY | | [...]
--- OUTSIDE RECORDS SUMMARY | ~2019-09-04 | XMS | Encounter Summary ---
Demographics + + + | Address | [address] | | | [place] [address] | + + + | Home Phone [...] | [place] | | | | | [address] | | + + + + + | Detailed Message | ECON | Unknown | | + + + + + Care Team Providers + +------+ + | Care Credit Collection Associate Name | Role | Phone | + [...] | | | | | Procedures | [address] | AVE | | | | | FL UGI | [place], | [place], [place] | | | | | | [place] [address] | [address] | | | | | | | Phone: | | | | | | | [phone] | | | | | | | Fax: | | | | | | | [phone] | +--------+--------+ + + + + Diagnostic/Screening [...] | | | | | without | [address] | AVE | | | | | rupture | [place], | [place], [place] | | | | | ([facility]) | [place] [address] | [address] | | | | | Procedures | | Phone: | | | | | ECHO | | [phone] | | | | | Complete [place] | | Fax: | | | | | ECHO HEART | | [phone] | | | | | XTHORACIC,CO | | | | | | | MPLETE W | | | | | | | DOPPLER [place] | | | | | | | [...] | HOSPITAL | | | | | ([facility]) | MD [address] | [address] | | | | | Thoracic | [address] | AVE | | | | | aortic | [place], | [place], [place] | | | | | aneurysm | [place] [address] | [address] | | | | | without | | Phone: | | | | | rupture | | [phone] | | | | | ([facility]) | | Fax: | | | | | Intractable | | [phone] | | | | | hiccups | [...] | | pulmonary | PA-C [address] | | | | | disease, | [address] | [place], | | | | | unspecified | Ave | [place] [address] | | | | | (HCC) | [place], | | | | | | Procedures | [place] | | | | | | [place] | [address] | | | | | | CONSULT | Phone: | | | | | | | [phone] | | | | | | | Fax: | | | | | | | [phone] | | +--------+--------+ + + + + Encounter Details +--------+---------+ + + + | Date | Type | Department | Care Team | Description | +--------+---------+ + + + | 01/19/ | Office | [facility] | Offenstein, | Shortness of breath; | | 2015 | Visit | PULMONARY [address] | Camille Wu MD | Panlobular | | | | [place], | | emphysema (HCC); | | | | [place] [address] | | Thoracic aortic | | | | [phone] | | aneurysm without | | | [...] for a nebulizer machine to [facility] in [place] and you can get this there. Start on albuterol/ipratropium nebulizers twice daily, [facility] You can use this up to every 6 hours as needed. 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 Electronically signed [...] [place] | | | | | | [address] | | | | | | | | +--------+---------+ + + + | 01/28/ | Office | Cardiology | Vannesa Martinez | | | 2020 | Visit | | [address] | | | | | | [address] | | | | | | [place] [address] | | | | | | [phone] | | | | | | | [...] mL/min/1.73m2 | [facility] | | | [place] | RATE,ESTIMATED | | MEDICAL | | | | mL/min/1.68s8Zedy than | | CENTER - | | [...] [address] | [place] | [phone] | | [facility] | | [address] | | | - LABORATORY | | [...]
--- OUTSIDE RECORDS SUMMARY | ~2019-09-04 | XMS | Encounter Summary ---
Demographics + + + | Address | [address] | | | [place] [address] | + + + | Home Phone [...] [place] | | | | | [address] | | + + + + + | Detailed Message | ECON | Unknown | | + + + + + Care Team Providers + +------+ + | Care Photographic Process Screen Maker Name | Role | Phone | [...] + + + + | 06/01/ | Telephone | [facility] | Glen Dahl MD | Results | | 2017 | | GASTROENTEROLOGY | [address] [facility] | | | | | [address] [facility] | [place], [place] | | | | | [address] [place], [place] | [address] | | | | | [address] | [phone] | | | | | [phone] | | | +--------+ + + + [...] [place] | | | | | | [address] | | | | | | | | +--------+---------+ + + + | 01/28/ | Office | Cardiology | Vannesa Martinez | | | 2019 | Visit | | [address] | | | | | | [address] | | | | | | [place] [address] | | | | | | [phone] | | | | | | | | +--------+---------+ + + + documented as of this encounter Visit Diagnoses Not on filedocumented in this encounter"
--- OUTSIDE RECORDS SUMMARY | ~2019-09-04 | XMS | Encounter Summary ---
Demographics + + + | Address | [address] | | | [place] [address] | + + + | Home Phone | | + + + | Preferred Language | Unknown | + + + | Marital Status | Unknown | + + + | Orthodox Affiliation | Unknown | + + [...] | [place] | | | | | [address] | | + + + + + | Detailed Message | ECON | Unknown | | + + + + + Care Team Providers + +------+ + | Care Studio Designer Name | Role | Phone | [...] | | | | | | | [place] | | | | | | | ESOPHAGOGAST | | | | | | | RODUODENOSCO | | | | | | | PY TRANSORAL | | | | | | | DIAGNOSTIC | | | | | | | [place] EGD | | | | | | | TRANSORAL | | | | | | | BIOPSY | | | | | | | SINGLE/MULTI | | | | | | | PLE [place] | | | | | | | COLONOSCOPY | | | | | | | FLX DX | | | | | | | W/COLLJ SPEC | | | | | | | WHEN PFRMD | | | | | | | ND | | | | | | | COLONOSCOPY | | | | | | | W/BIOPSY | | | | | | | SINGLE/MULTI | | | | | | | PLE [place] | | | | | | | COLSC FLX | | | | | | | W/RMVL OF | | | | | | | TUMOR POLYP | | | | | | | LESION SNARE | | | | | | | TQ [place] | | | | | | | ANESTH,UGI | | | | | | | ENDOSCOPY | | | | | | | [place] | | | | | | | [...] + + | 05/25/ | Surgery | [facility] | Glen Dahl MD | EGD | | 2017 | | MED CTR MP INTRA OP | [address] | | | | | [address] | [place], [place] | | | | | [place] | [address] | | | | | [address] | [phone] | | | | | [phone] | | | +--------+---------+ + + + [...] the physician who did your procedure at [phone] if you have any questions or experience any of the following: ? Increasing abdominal pain, nausea, or vomiting. ? Chills and fever over 101F. ? New abdominal swelling or bloating. ? Signs of rectal bleeding (black or red stool). If you cannot get a hold of your physician, then call the [facility] [phone] . If necessary, report to the Emergency Department at [facility]. Quit smoking: If you smoke or [...] | 09/30/ | Office | Cardiology | Smam Malik, | | | 2019 | Visit | | MD [address] | | | | | | [place] | | | | | | [address] | | | | | | | | +--------+---------+ + + + | 01/28/ | Office | Cardiology | Vannesa Martinez | | | 2019 | Visit | | [address] | | | | | | [address] | | | | | | [facility] [place] [address] | | | | | | [phone] | | | | | | | [...] 05/25/2017 | PROVATION | | 1:01 PMMRN: [id number] #: [id number] of : | | | 1965Admit Type: AmbulatoryAge: 52Room: [facility] 02Gender: MaleNote | | | Status: [...] | | | the anesthesiologist and the certified medical technician in the pre-procedure | | | [...] | In: 1:14:56 PMScope Out: 1:27:04 PM [facility] | | | [place], [address] [place] [address] | | | - Continue present medications. [...] |Scope Out: 1:27:04 PM | | | Merged [facility], [address] [place] [address] | | | [address] | | + + -+ + +---------+ + + | Performing | Address | City/State/[facility] Centercode | Phone Number | | [...] 05/25/2017 | [place] | | 1:00 PMMRN: [id number] #: [id number] of : | | | 1965Admit Type: AmbulatoryAge: 52Room: [facility] 02Gender: MaleNote | | | Status: FinalizedAttending MD: Glen Dahl , [facility]ENTERrocedure: | | | ColonoscopyIndications: Screening for colorectal [...] the anesthesiologist and the | | | certified medical technician in the pre-procedure area in the [...] | | Initiated On: 05/25/2017 1:00 PM [facility] | | | [place], [address] [place] [address] | | | - Resume previous diet. [...] On: 05/25/2017 1:00 PM | | | Merged With [facility], [address] [place] [address] | | | [address] | | + + -+ + +---------+ [...] negative for fungal | | | organisms. JVR:[facility] FINAL PATHOLOGIC DIAGNOSIS: A. Gastric biopsies: | [...] Clinical correlation is requested. | | | JVR:[facility]:C2NR GROSS DESCRIPTION: The specimen is received in [...] | and slide preparation were performed by [facility], [address] | [address], [address], [place] [address] (Commercial Loan Coordinator: Caesar Dos Santos | Raya Su M.D. CLIA#: [id number]). Professional interpretation was | | | performed by [facility], [facility] | | | Branch, [address] [place] [address] (Commercial Loan Coordinator: | | | Caesar Su M.D.; CLIA#: [id number]). Diagnostician: Caesar Reyes | | | Georges [...]
--- OUTSIDE RECORDS SUMMARY | ~2019-09-04 | XMS | Encounter Summary ---
Demographics + + + | Address | [address] | | | [place] [address] | + + + | Home Phone | | + + + | Preferred Language | Unknown | + + + | Marital Status | Unknown | + + + | Amish Affiliation | Unknown | + + + | Race | Unknown | + + + | Ethnic Group | Unknown | + + + Author + + + | Author | [facility] | | | and [place] | + + + | Organization | [facility] | | | and [place] | + + + | Address | Unknown | + + + | Phone | Unavailable | + + + Support + + + + + | Name | Relationship | Address | Phone | + + + + + | Taurus Salinas | ECON | [place] | | | | | [address] | | + + + + + | Detailed Message | ECON | Unknown | | + + + + + Care Team Providers + +------+ + | Care Kids Club Attendant Name | Role | Phone | + [...] + + | 07/02/ | Telephone | [facility] | [facility], | Appointment | | 2017 | | GASTROENTEROLOGY | WILLEM Senior [address] | | | | | [address] | [place], [address] | | | | | [address] [place], [place] | [place], [place] | | | | | [address] | [address] | | | | | [phone] | | | +--------+ + + + [...] [place] | | | | | | [address] | | | | | | | | +--------+---------+ + + + | 01/28/ | Office | Cardiology | Vannesa Martinez | | | 2019 | Visit | | [address] | | | | | | [address] | | | | | | [place] [address] | | | | | | [phone] | | | | | | | | +--------+---------+ + + + documented as of this encounter Visit Diagnoses Not on filedocumented in this encounter"
--- OUTSIDE RECORDS SUMMARY | ~2019-09-04 | XMS | Encounter Summary ---
Demographics + + + | Address | [address] | | | [place] [address] | + + + | Home Phone [...] + | Author | [facility] | | | and [place] | + + + | Organization | [facility] | | | and [place] | + + + | Address | Unknown | + + + | Phone | Unavailable | + + + Support + + + + + | Name | Relationship | Address | Phone | + + + + + | Taurus Salinas | ECON | [place] | | | | | [address] | | + + + + + | Detailed Message | ECON | Unknown | | + + + + + Care Team Providers + +------+ + | Care Electrical Maintenance Supervisor Name | Role | Phone | + +------+ + | Daisy Jane | PCP | | | PA-C | | | + +------+ + Encounter Details +--------+ + + + + | Date | Type | Department | Care Team | Description | +--------+ + + + + | 01/19/ | Hospital | [facility] | [facility], | Chronic obstructive | | 2016 | Encounter | MED CTR PULMONARY | Camille Wu MD | pulmonary disease, | | | | FUNCTION [address] | | unspecified COPD | | | | [place], | | type (HCC) | | | | [place] [address] | | | | | | [phone] | | | +--------+ + + + [...] | | | | | [place] | | | | | | [phone] | | | | | | | | +--------+---------+ + + + | 01/28/ | Office | Cardiology | Cuauht[facility]oc[facility]erv[facility]ann[facility] | | | 2019 | Visit | | [address] | | | | | | [address] | | | | | | [place] [address] | | | | | | [phone] | | | | | | | [...] PFT PULMONARY FUNCTION TESTING ORDERS Full PFT (Condon w/BD, lung volumes, diffusion)?: Yes (02/06/2016 7:12 [...] MD 02/06/2016 19:08 | | | [facility] CC: Daisy Stratton, | | | [place] [...]
--- OUTSIDE RECORDS SUMMARY | ~2019-09-04 | XMS | Clinical Summary ---
Demographics + + + | Address | [address] | | | [place] [address] | + + + | Home Phone [...] + + + | Author | [facility] | | | and [place] | + + + | Organization | [facility] | | | and [place] | + + + | Address | Unknown | + + + | Phone | Unavailable | + + + Support + + + + + | Name | Relationship | Address | Phone | + + + + + | Taurus Salinas | ECON | [place] | | | | | [address] | | + + + + + | Detailed Message | ECON | Unknown | | + + + + + Care Team Providers + +------+ + | Care Solutions Manager Name | Role | Phone | [...] | | | | | [place] | | | | | | [address] | | | | | | | | +--------+---------+ + + + | 01/28/ | Office | Cardiology | Vannesa Martinez | | | 2019 | Visit | | [address] | | | | | | [address] | | | | | | [place] [address] | | | | | | [phone] | | | | | | | [...] | [employer] | MODA | [id number] | 03/03/20 | [phone] | | Medica | | MEDICAID HMO | HEALTH | | 14-Pre | 1 | | id | | | MDCD | | sent | | | | | | HMO [place] | | | | | | + +--------+ +--------+ +---------+--------+ | [employer] | MODA | [id number] | | [phone] | | Medica | | MEDICAID HMO | HEALTH | | 018-Pr | 1 | | id | | | MDCD | | esent | | | | | | HMO [place] | | | | | | + +--------+ +--------+ +---------+--------+ | [employer] | MODA | [id number] | 07/23/ | [phone] | | Medica | | MEDICAID HMO [...] [place] | | | 5 (Work) | [phone] | + +--------+ +--------+ + + | Taurus Domínguez | Person | Self | [birth year] | [address] | | | al/Fam | | 1965 | [phone] | [place], [place] | | | [place]istina | | | 5 (Work) | [address] | + +--------+ +--------+ + + | Taurus Domínguez | Person | Self | [birth year] | | [address] | | | al/Shiva | | 1965 | | [place] | | | [place] | | | | [address] | + +--------+ +--------+ + + Advance Directives + + + + + | Type | Date Recorded | Patient | Explanation | | | | Supervisor Hydrochloric Area | | + + + + + | Power of | | | | | Green End Worker | | | | + + + [...]
--- OUTSIDE RECORDS SUMMARY | ~2019-09-04 | XMS | Encounter Summary ---
Demographics + + + | Address | [address] | | | [place] [address] | + + + | Home Phone | | + + + | Preferred Language | Unknown | + + + | Marital Status | Unknown | + + + | Taoism Affiliation | Unknown | + + + | Race | Unknown | + + + | Ethnic Group | Unknown | + + + Author + + + | Author | [facility] | | | and [place] | + + + | Organization | [facility] | | | and [place] | + + + | Address | Unknown | + + + | Phone | Unavailable | + + + Support + + + + + | Name | Relationship | Address | Phone | + + + + + | Taurus Salinas | ECON | [place] | | | | | [address] | | + + + + + | Detailed Message | ECON | Unknown | | + + + + + Care Team Providers + +------+ + | Care Senior Patient Account Representative Name | Role | Phone | + +------+ + | Daisy Jane | PCP | | | PA-C | | | + +------+ + Encounter Details +--------+ + + + + | Date | Type | Department | Care Team | Description | +--------+ + + + + | 06/01/ | Hospital | [facility] | Conversion | Unknown cause of | | 2015 | Encounter | CONVERSION [address] | Transaction, | injury | | | | [address] | Provider Unknown | | | | | [place], [place] | [phone] | | | | | [address] | | | | | | [phone] | | | +--------+ + + + [...] | | | | | [address], [place] | | | | | | [phone] | | | | | | | | +--------+---------+ + + + | 01/28/ | Office | Cardiology | Vannesa Martinez | | | 2019 | Visit | | [address] | | | | | | [address] | | | | | | [place] [address] | | | | | | [phone] | | | | | | | [...]
--- OUTSIDE RECORDS SUMMARY | ~2019-09-04 | XMS | Encounter Summary ---
Demographics + + + | Address | [address] | | | [place] [address] | + + + | Home Phone | | + + + | Preferred Language | Unknown | + + + | Marital Status | Unknown | + + + | Lutheran Affiliation | Unknown | + + + | Race | Unknown | + + + | Ethnic Group | Unknown | + + + Author + + + | Author | [facility] | | | and [place] | + + + | Organization | [facility] | | | and [place] | + + + | Address | Unknown | + + + | Phone | Unavailable | + + + Support + + + + + | Name | Relationship | Address | Phone | + + + + + | Taurus Salinas | ECON | [place] | | | | | [address] | | + + + + + | Detailed Message | ECON | Unknown | | + + + + + Care Team Providers + +------+ + | Care Residential Program Worker Name | Role | Phone | + +------+ + | Kenny Hernandez DO | PCP | | + +------+ + Encounter Details +--------+ + + + + | Date | Type | Department | Care Team | Description | +--------+ + + + + | 12/12/ | Hospital | [facility] | Conversion | Benign essential | | 2019 | Encounter | [facility]ICAL [facility]ENTER | Transaction, | hypertension; Atrial | | | | CLINICAL DECISION | Provider Unknown | fibrillation with | | | | [address] | [phone] | RVR ([facility]); Acute | | | | [place], [place] | | combined systolic | | | | [address]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 Pt understands discharge instructions. IV's have been gwendolyn yari. onver nicole Charley, Provider Unknown - 12/12/2018 6:37 PM PDT Case Management by ELIZABETH Juarez at 12/12/181836 Author: ELIZABETH Juarez Service: (none) Author Type: Watcher Lookout Tower Filed: 12/12/181845 Date of Service: 12/12/181836 Status: Addendum Hematology Oncology Consultant: ELIZABETH Juarez (Watcher Lookout Tower) Related Notes: Original Note by ELIZABETH Juarez (Watcher Lookout Tower) filed at 12/12/18 9 Received call from RN advising that patient's [place] Medicaid Transport ride home has falle n through and now it is after hours (call received from RN at 5:30pm). [place] Medicaid Trans port open only 8-5 M-F, and the direct commercial real estate broker Transportation Network for [facility] is also only open 8-5. Taxi via [employer] $170, patient cites no other resources. Left message for CRM Supervisors regarding approval for transport v. Patient using [place] Medicaid Transp ort tomorrow. 6:45pm received approval from John Durbin, ball machine operator to arrange [employer] for d/c home [...] | | | | | | [place] [facility] [place] | | | | | | [address] | | | | | | | | +--------+---------+ + + + | 01/28/ | Office | Cardiology | Vannesa Martinez | | | 2019 | Visit | | [address] | | | | | | [address] | | | | | | [place] [address] | | | | | | [phone] | | | | | | | [...] at | | | | | | [facility];[address] [place] [address] | | | | | | [facility];[place] [address] | | | | + + + [...] | | | | | performed at [facility];[address] | | | | | | [facility];[place], [place] | | | | | | [address] | | | | + + + [...]
--- OUTSIDE RECORDS SUMMARY | ~2019-09-04 | XMS | Encounter Summary ---
Demographics + + + | Address | [address] | | | [place] [address] | + + + | Home Phone | | + + + | Preferred Language | Unknown | + + + | Marital Status | Unknown | + + + | Confucianism Affiliation | Unknown | + + + [...] [place] | | | | | [address] | | + + + + + | Detailed Message | ECON | Unknown | | + + + + + Care Team Providers + +------+ + | Care Final Assembly Inspector Name | Role | Phone | + +------+ + | Kenny Hernandez DO | PCP | | + +------+ + Encounter Details +--------+ + + + + | Date | Type | Department | Care Team | Description | +--------+ + + + + | 04/24/ | Abstract | [facility] | [facility], | | | 2016 | | GASTROENTEROLOGY | WILLEM Senior [address] | | | | | [address] | [place], [address] | | | | | [address] [place], [place] | [place], [place] | | | | | [address] | [address] | | | | | [phone] | | | +--------+ + + + [...] | | | | | | [place] [facility] [place] | | | | | | [address] | | | | | | | | +--------+---------+ + + + | 01/28/ | Office | Cardiology | Vannesa Martinez | | | 2019 | Visit | | [address] | | | | | | [address] | | | | | | [place] [address] | | | | | | [phone] | | | | | | | [...] - 1.03 | EXTERNAL | | | [place], | | | LAB | | | [...]
--- OUTSIDE RECORDS SUMMARY | ~2019-09-04 | XMS | Clinical Summary ---
Demographics + + + | Address | [address] | | | [place] [address] | + + + | Home Phone | | + + + | Preferred Language | Unknown | + + + | Marital Status | Unknown | + + + | Buddhist Affiliation | Unknown | + + + | Race | Unknown | + + + | Ethnic Group | Unknown | + + + Author + + + | Author | [facility] (Historical as of | | | 04-19-19) | + + + | Organization | [facility] (Historical as of | | | 04-19-19) [...] Team Providers + +------+ + | Care Traffic Sign Erection Supervisor Name | Role | Phone | [...] +------+-------+ + | MEDICAID | [place] | [id number] | | | [address] | | | [place] | | | | [place] | | | [place] | | | | [address] | | | NUCLEAR EQUIPMENT SALES ENGINEER | | | | | + +--------+ [...] | | al/Fam | | 1965 | [phone] | [place] | | | [place] | | | [address]: | [address] | | | | | | | | | | | | | [phone] | | | | | | | [address] | | + +--------+ +--------+ + +
--- OUTSIDE RECORDS SUMMARY | ~2019-09-04 | XMS | Encounter Summary ---
Demographics + + + | Address | [address] | | | [place] [address] | + + + | Home Phone | | + + + | Preferred Language | Unknown | + + + | Marital Status | Unknown | + + + | Orthodoxy Affiliation | Unknown | + + + | Race | Unknown | + + + | Ethnic Group | Unknown | + + + Author + + + | Author | [facility] | | | and [place] | + + + | Organization | [facility] | | | and [place] | + + + | Address | Unknown | + + + | Phone | Unavailable | + + + Support + + + + + | Name | Relationship | Address | Phone | + + + + + | Taurus Salinas | ECON | [place] | | | | | [address] | | + + + + + | Detailed Message | ECON | Unknown | | + + + + + Care Team Providers + +------+ + | Care Stock Handler Name | Role | Phone | + [...] | [address] | [place], [address] | esophagitis presence | | | | [address] [place], [place] | [place], [place] | not specified | | | | [address] | [address] | (Primary Dx); | | | | [phone] | | Dysphagia, | | | | [...] | | | | | | [place], [place] | | | | | | [address] | | | | | | | | +--------+---------+ + + + | 01/28/ | Office | Cardiology | Vannesa Martinez | | | 2019 | Visit | | [address] | | | | | | [address] | | | | | | [place] [address] | | | | | | [phone] | | | | | | | [...]
--- OUTSIDE RECORDS SUMMARY | ~2019-09-04 | XMS | Encounter Summary ---
Demographics + + + | Address | [address] | | | [place] [address] | + + + | Home Phone | | + + + | Preferred Language | Unknown | + + + | Marital Status | Unknown | + + + | Zoroastrianism Affiliation | Unknown | + + + | Race | Unknown | + + + | Ethnic Group | Unknown | + + + Author + + + | Author | [facility] | | | and [place] | + + + | Organization | [facility] | | | and [place] | + + + | Address | Unknown | + + + | Phone | Unavailable | + + + Support + + + + + | Name | Relationship | Address | Phone | + + + + + | Taurus Salinas | ECON | [place] | | | | | [address] | | + + + + + | Detailed Message | ECON | Unknown | | + + + + + Care Team Providers + +------+ + | Care [place] Dental Lab Technician Name | Role | Phone [...] | | | | [address] [place] | | | | | | [address] | | | | | | [phone] | | | +--------+ + + + [...] [place] | | | | | | [address] | | | | | | | | +--------+---------+ + + + | 01/28/ | Office | Cardiology | Vannesa Martinez | | | 2019 | Visit | | [address] | | | | | | [address] | | | | | | [place] [address] | | | | | | [phone] | | | | | | | | +--------+---------+ + + + documented as of this encounter Visit Diagnoses Not on filedocumented in this encounter"
--- OUTSIDE RECORDS SUMMARY | ~2019-09-04 | XMS | Encounter Summary ---
Demographics + + + | Address | [address] | | | [place] [address] | + + + | Home Phone | | + + + | Preferred Language | Unknown | + + + | Marital Status | Unknown | + + + | Yarsani Affiliation | Unknown | + + + | Race | Unknown | + + + | Ethnic Group | Unknown | + + + Author + + + | Author | [facility] | | | and [place] | + + + | Organization | [facility] | | | and [place] | + + + | Address | Unknown | + + + | Phone | Unavailable | + + + Support + + + + + | Name | Relationship | Address | Phone | + + + + + | Taurus Salinas | ECON | [place] | | | | | [address] | | + + + + + | Detailed Message | ECON | Unknown | | + + + + + Care Team Providers + +------+ + | Care Sweatband Separator Name | Role | Phone | + [...] [address] | | | | | [place] [address] | | | | | | [phone] | | | +--------+ + + + [...] | 2019 | Visit | | MD [address] | | | | | | [place] | | | | | | [id number] | | | | | | | | +--------+---------+ + + + | 01/28/ | Office | Cardiology | Vannesa Martinez | | | 2019 | Visit | | [address] | | | | | | [address] | | | | | | [place] [address] | | | | | | [phone] | | | | | | | | +--------+---------+ + + + documented as of this encounter Visit Diagnoses Not on filedocumented in this encounter"
--- OUTSIDE RECORDS SUMMARY | ~2019-09-04 | XMS | Encounter Summary ---
Demographics + + + | Address | [address] | | | [place] [address] | + + + | Home Phone | | + + + | Preferred Language | Unknown | + + + | Marital Status | Unknown | + + + | Congregation Affiliation | Unknown | + + + [...] [place] | | | | | [address] | | + + + + + | Detailed Message | ECON | Unknown | | + + + + + Care Team Providers + +------+ + | Care Research Phlebotomist Name | Role | Phone | + [...] + + | 06/01/ | Telephone | [facility] | Glen Dahl MD | Results | | 2017 | | GASTROENTEROLOGY | [address] [facility] | | | | | [address] [facility] | [place], [place] | | | | | [address] [place], [place] | [address] | | | | | [address] | [phone] | | | | | [phone] | | | +--------+ + + + [...] [place] | | | | | | [address] | | | | | | | | +--------+---------+ + + + | 01/28/ | Office | Cardiology | Vannesa Martinez | | | 2019 | Visit | | [address] | | | | | | [address] | | | | | | [place] [address] | | | | | | [phone] | | | | | | | | +--------+---------+ + + + documented as of this encounter Visit Diagnoses Not on filedocumented in this encounter"
--- OUTSIDE RECORDS SUMMARY | ~2019-09-04 | XMS | Encounter Summary ---
Demographics + + + | Address | [address] | | | [place] [address] | + + + | Home Phone | | + + + | Preferred Language | Unknown | + + + | Marital Status | Unknown | + + + | Faith Affiliation | Unknown | + + + | Race | Unknown | + + + | Ethnic Group | Unknown | + + + Author + + + | Author | [facility] | | | and [place] | + + + | Organization | [facility] | | | and [place] | + + + | Address | Unknown | + + + | Phone | Unavailable | + + + Support + + + + + | Name | Relationship | Address | Phone | + + + + + | Taurus Salinas | ECON | [place] | | | | | [address] | | + + + + + | Detailed Message | ECON | Unknown | | + + + + + Care Team Providers + +------+ + | Care Patrol Conductor Name | Role | Phone | + [...] | | | | [address] | [place], [place] | | | | | | [place], [place] | [address] Phone: | | | | | | [address] | [phone] | | | | | | Phone: | Fax: | | | | | | [phone] | [phone] | | | | | | Fax: | | | | | | | [phone] | | + + + + + + + Encounter Details +--------+ + + + + | Date | Type | Department | Care Team | Description | +--------+ + + + + | 04/23/ | Orders Only | [facility] | Gabe Conrad, | Persistent atrial | | 2019 | | CARDIOLOGY [place] | MD [address] | fibrillation (HCC) | | | | [address] | [place], [place] | | | | | [address] | [address] | | | | | [place], [place] | | | | | | [address] | | | | | | [phone] | | | +--------+ + + + [...] [place] | | | | | | [address] | | | | | | | | +--------+---------+ + + + | 01/28/ | Office | Cardiology | Vannesa Martinez | | | 2019 | Visit | | [address] | | | | | | [address] | | | | | | [place] [address] | | | | | | [phone] | | | | | | | | +--------+---------+ + + + + + +--------+ + + | Name | Type | Priori | Associated Diagnoses | Order Schedule | | | | ty | | | + + +--------+ + + | Ambulatory referral | Outpatient | Routin | Persistent atrial | Ordered: 04/23/2019 | | to [facility] | Referral | e | [...]
--- OUTSIDE RECORDS SUMMARY | ~2019-09-04 | XMS | Encounter Summary ---
Demographics + + + | Address | [address] | | | [place] [address] | + + + | Home Phone [...] + + + + + | Taurus Slainas | ECON | [place] | | | | | [address] | | + + + + + | Detailed Message | ECON | Unknown | | + + + + + Care Team Providers + +------+ + | Care Daycare Director Name | Role | Phone | [...] Wu MD | | | | | [place], | | | | | | [place] [address] | | | | | | [phone] | | | +--------+ + + + [...] | | | | | | [place] [facility] | | | | | | [address] | | | | | | | | +--------+---------+ + + + | 01/28/ | Office | Cardiology | Vannesa Martinez | | | 2019 | Visit | | [address] | | | | | | [address] | | | | | | [place] [address] | | | | | | [phone] | | | | | | | | +--------+---------+ + + + documented as of this encounter Visit Diagnoses Not on filedocumented in this encounter"
--- OUTSIDE RECORDS SUMMARY | ~2019-09-04 | XMS | Encounter Summary ---
Demographics + + + | Address | [address] | | | [place] [address] | + + + | Home Phone | | + + + | Preferred Language | Unknown | + + + | Marital Status | Unknown | + + + | Judaism Affiliation | Unknown | + + + | Race | Unknown | + + + | Ethnic Group | Unknown | + + + Author + + + | Author | [facility] | | | and [place] | + + + | Organization | [facility] | | | and [place] | + + + | Address | Unknown | + + + | Phone | Unavailable | + + + Support + + + + + | Name | Relationship | Address | Phone | + + + + + | Taurus Salinas | ECON | [place] | | | | | [address] | | + + + + + | Detailed Message | ECON | Unknown | | + + + + + Care Team Providers + +------+ + | Care Map Clerk Name | Role | Phone | [...] | [address] [place] | [place], [address] | esophagitis presence | | | | [address] [place], [place] | [place], [place] | not specified | | | | [address] | [address] | (Primary Dx); | | | | [phone] | | Dysphagia, | | | | [...] | | | | | | [place], [place] | | | | | | [address] | | | | | | | | +--------+---------+ + + + | 01/28/ | Office | Cardiology | Vannesa Martinez | | | 2019 | Visit | | [address] | | | | | | [address] | | | | | | [place] [address] | | | | | | [phone] | | | | | | | [...]
--- OUTSIDE RECORDS SUMMARY | ~2019-09-04 | XMS | Encounter Summary ---
Demographics + + + | Address | [address] | | | [place] [address] | + + + | Home Phone | | + + + | Preferred Language | Unknown | + + + | Marital Status | Unknown | + + + | Faith Affiliation | Unknown | + + + | Race | Unknown | + + + | Ethnic Group | Unknown | + + + Author + + + | Author | [facility] | | | and [place] | + + + | Organization | [facility] | | | and [place] | + + + | Address | Unknown | + + + | Phone | Unavailable | + + + Support + + + + + | Name | Relationship | Address | Phone | + + + + + | Taurus Salinas | ECON | [place] | | | | | [address] | | + + + + + | Detailed Message | ECON | Unknown | | + + + + + Care Team Providers + +------+ + | Care Bread Pan Greaser Name | Role | Phone | + [...] + + | 05/06/ | Telephone | [facility] | Danielle Meredith, | Referral (Malik | | 2019 | | CARDIOLOGY [place] | Furniture Painter | Scheduling) | | | | [address] | | | | | | [place], [place] | | | | | | [address] | | | | | | [phone] | | | +--------+ + + + [...] | | | | | [place] [address] | | | | | | [phone] | | | | | | | | +--------+---------+ + + + documented as of this encounter Visit Diagnoses Not on filedocumented in this encounter"
--- OUTSIDE RECORDS SUMMARY | ~2019-09-04 | XMS | Clinical Summary ---
Demographics + + + | Address | [address] | | | [place] [address] | + + + | Home Phone | | + + + | Preferred Language | Unknown | + + + | Marital Status | Unknown | + + + | Alevism Affiliation | Unknown | + + + | Race | Unknown | + + + | Ethnic Group | Unknown | + + + Author + + + | Author | [facility] | | | and [place] | + + + | Organization | [facility] | | | and [place] | + + + | Address | Unknown | + + + | Phone | Unavailable | + + + Support + + + + + | Name | Relationship | Address | Phone | + + + + + | Taurus Salinas | ECON | [place] | | | | | [address] | | + + + + + | Detailed Message | ECON | Unknown | | + + + + + Care Team Providers + +------+ + | Care On Air Personality Name | Role | Phone | [...] | | | | | [place] | | | | | | [address] | | | | | | | | +--------+---------+ + + + | 01/28/ | Office | Cardiology | Vannesa Martinez | | | 2019 | Visit | | [address] | | | | | | [address] | | | | | | [place] [address] | | | | | | [phone] | | | | | | | [...] | [employer] | MODA | [id number] | 03/03/20 | [phone] | | Medica | | MEDICAID HMO | HEALTH | | 14-Pre | 1 | | id | | | MDCD | | sent | | | | | | [place]MO [place] | | | | | | + +--------+ +--------+ +---------+--------+ | [employer] | MODA | [id number] | | [phone] | | Medica | | MEDICAID HMO | HEALTH | | 018-Pr | 1 | | id | | | MDCD | | esent | | | | | | [place]MO [place] | | | | | | + +--------+ +--------+ +---------+--------+ | [employer] | MODA | [id number] | 07/23/ | [phone] | | Medica | | MEDICAID HMO [...] cristina | | | 5 (Work) | [address] | + +--------+ +--------+ + + | Taurus Domínguez | Person | Self | [birth year] | | [address] | | | al/Fam | | 1965 | [phone] | [place], [place] | | | cristina | | | 5 (Work) | [address] | + +--------+ +--------+ + + | Taurus Domínguez | Person | Self | [birth year] | | [address] | | | al/Shiva | | 1965 | | [place] | | | [place] | | | | [address] | + +--------+ +--------+ + + Advance Directives + + + + + | Type | Date Recorded | Patient | Explanation | | | | Designated Broker | | + + + + + | Power of | | | | | Nps | | | | + + + [...]
--- OUTSIDE RECORDS SUMMARY | ~2019-09-04 | XMS | Encounter Summary ---
Demographics + + + | Address | [address] | | | [place] [address] | + + + | Home Phone [...] [place] | | | | | [address] | | + + + + + | Detailed Message | ECON | Unknown | | + + + + + Care Team Providers + +------+ + | Care Communication Specialist Name | Role | Phone | + +------+ + | Kenny Hernandez DO | PCP | | + +------+ + Encounter Details +--------+ + + + + | Date | Type | Department | Care Team | Description | +--------+ + + + + | 05/25/ | Orders Only | [facility] | Glen Dahl MD | Gastroesophageal | | 2017 | | GASTROENTEROLOGY | [address] [facility] | reflux disease with | | | | [address] [facility] | [place], [place] | esophagitis (Primary | | | | [address] [place] | [address] | Dx) | | | | [address] | [phone] | | | | | [phone] | | | +--------+ + + + [...] with 2 refills ordered at patient's pharmacy [facility]. Per his procedure note repeat upp er [...] [place] | | | | | | [address] | | | | | | | | +--------+---------+ + + + | 01/28/ | Office | Cardiology | Vannesa Martinez | | | 2019 | Visit | | [address] | | | | | | [address] | | | | | | [place] [address] | | | | | | [phone] | | | | | | | | +--------+---------+ + + + documented as of this encounter Visit Diagnoses + + | Diagnosis | + + | Gastroesophageal reflux disease with esophagitis - Primary | + + documented in this encounter"
--- OUTSIDE RECORDS SUMMARY | ~2019-09-04 | XMS | Encounter Summary ---
Demographics + + + | Address | [address] | | | [place] [address] | + + + | Home Phone [...] | [place] | | | | | [address] | | + + + + + | Detailed Message | ECON | Unknown | | + + + + + Care Team Providers + +------+ + | Care Deployment Technician Name | Role | Phone | + +------+ + | Daisy Jane | PCP | | | PA-C | | | + +------+ + Encounter Details +--------+ + + + + | Date | Type | Department | Care Team | Description | +--------+ + + + + | 01/19/ | Hospital | [facility] | [facility], | Chronic obstructive | | 2016 | Encounter | MED CTR PULMONARY | Camille Wu MD | pulmonary disease, | | | | FUNCTION [address] | | unspecified COPD | | | | [place], | | type (HCC) | | | | [place] [address] | | | | | | [phone] | | | +--------+ + + + [...] | | | | | [place] | | | | | | [phone] | | | | | | | | +--------+---------+ + + + | 01/28/ | Office | Cardiology | CuauhtemocminervaVannesa | | | 2019 | Visit | | [address] | | | | | | [address] | | | | | | [place] [address] | | | | | | [phone] | | | | | | | [...] PFT PULMONARY FUNCTION TESTING ORDERS Full PFT (Fleming w/BD, lung volumes, diffusion)?: Yes (02/06/2016 7:12 [...] MD 02/06/2016 19:08 | | | [facility] CC: Daisy Stratton, | | [...]
--- OUTSIDE RECORDS SUMMARY | ~2019-09-04 | XMS | Encounter Summary ---
Demographics + + + | Address | [address] | | | [place] [address] | + + + | Home Phone | | + + + | Preferred Language | Unknown | + + + | Marital Status | Unknown | + + + | Pentecostal Affiliation | Unknown | + + + [...] [place] | | | | | [address] | | + + + + + | Detailed Message | ECON | Unknown | | + + + + + Care Team Providers + +------+ + | Care Leg Man Name | Role | Phone | [...] [place] | | | | | [address] | [address] | | | | | [phone] | [phone] | | | | | | | [...] | | | | | | [place] [facility] [place] | | | | | | [address] | | | | | | | | +--------+---------+ + + + | 01/28/ | Office | Cardiology | JuanVannesa | | | 2019 | Visit | | [address] | | | | | | [address] | | | | | | [place] [address] | | | | | | [phone] | | | | | | | [...] and ascending aorta. MEASUREMENTS | | | Perl Software Engineer: JILLIAN Authenticated by: JAYCOB FARRELL MD Report | | | Date/Time: -- [id number]:45:29 | | + + + + + | Procedure Note | + + | David Solorio Conversion - 04/24/2019 10:32 PM PDT Patient Name: Fah[place] Domínguez of | | : 1965 Performing Physician: JAYCOB FARERLL | | INDICATIONS D | | yspnea, [...] root and ascending aorta. | | MEASUREMENTS Perl Software Engineer: DHAuthenticated by: JAYCOB Coats | | Date/Time: -- 50_[id number]_12:45:29 IMPRESSION: 1. Overall left ventricular systolic | [...] | |MEASUREMENTS | | | | | |Perl Software Engineer: JILLIAN | |Authenticated by: JAYCOB FARRELL MD | |Report Date/Time: -- 49_[id number]_89:45:29 | | | |IMPRESSION: | |1. Overall [...]
--- OUTSIDE RECORDS SUMMARY | ~2019-09-04 | XMS | Encounter Summary ---
Demographics + + + | Address | [address] | | | [place] [address] | + + + | Home Phone | | + + + | Preferred Language | Unknown | + + + | Marital Status | Unknown | + + + | Catholic Affiliation | Unknown | + + + | Race | Unknown | + + + | Ethnic Group | Unknown | + + + Author + + + | Author | [facility] | | | and [place] | + + + | Organization | [facility] | | | and [place] | + + + | Address | Unknown | + + + | Phone | Unavailable | + + + Support + + + + + | Name | Relationship | Address | Phone | + + + + + | Taurus Salinas | ECON | [place] | | | | | [address] | | + + + + + | Detailed Message | ECON | Unknown | | + + + + + Care Team Providers + +------+ + | Care Pediatrician Managing Partner Name | Role | Phone | + +------+ + | Kenny Hernandez DO | PCP | | + +------+ + Encounter Details +--------+ + + + + | Date | Type | Department | Care Team | Description | +--------+ + + + + | 04/19/ | Abstract | [facility] | [facility], | | | 2016 | | GASTROENTEROLOGY | [address] | | | | | [address] [place] | [place], [place] [address] | | | | | [address] [place], [place] | [place], [place] | | | | | [address] | [address] | | | | | [phone] | | | +--------+ + + + [...] [place] | | | | | | [address] | | | | | | | | +--------+---------+ + + + | 01/28/ | Office | Cardiology | Vannesa Martinez | | | 2019 | Visit | | [address] | | | | | | [address] | | | | | | [place] [address] | | | | | | [phone] | | | | | | | | +--------+---------+ + + + documented as of this encounter Visit Diagnoses Not on filedocumented in this encounter"
--- OUTSIDE RECORDS SUMMARY | ~2019-09-04 | XMS | Encounter Summary ---
Demographics + + + | Address | [address] | | | [place] [address] | + + + | Home Phone [...] | [place] | | | | | [address] | | + + + + + | Detailed Message | ECON | Unknown | | + + + + + Care Team Providers + +------+ + | Care Geothermal Hvac Technician Name | Role | Phone | [...] | | | | | | | [place] | | | | | | | ESOPHAGOGAST | | | | | | | RODUODENOSCO | | | | | | | PY TRANSORAL | | | | | | | DIAGNOSTIC | | | | | | | TX EGD | | | | | | | TRANSORAL | | | | | | | BIOPSY | | | | | | | SINGLE/MULTI | | | | | | | PLE TX | | | | | | | COLONOSCOPY | | | | | | | FLX DX | | | | | | | W/COLLJ SPEC | | | | | | | WHEN PFRMD | | | | | | | TX | | | | | | | COLONOSCOPY | | | | | | | W/BIOPSY | | | | | | | SINGLE/MULTI | | | | | | | PLE TX | | | | | | | COLSC FLX | | | | | | | W/RMVL OF | | | | | | | TUMOR POLYP | | | | | | | LESION SNARE | | | | | | | TQ TX | | | | | | | ANESTH,UGI | | | | | | | ENDOSCOPY | | | | | | | [place] | | | | | | | [...] + + | 05/25/ | Surgery | [facility] | Glen Dahl MD | EGD | | 2017 | | MED CTR MP INTRA OP | [address] | | | | | [address] | [place], [place] | | | | | [place] | [address] | | | | | [address] | [phone] | | | | | [phone] | | | +--------+---------+ + + + [...] the physician who did your procedure at [phone] if you have any questions or experience any of the following: ? Increasing abdominal pain, nausea, or vomiting. ? Chills and fever over 101F. ? New abdominal swelling or bloating. ? Signs of rectal bleeding (black or red stool). If you cannot get a hold of your physician, then call the [facility] [phone] . If necessary, report to the Emergency Department at [facility]. Quit smoking: If you smoke or [...] | | | | | [place] | | | | | | [address] | | | | | | | | +--------+---------+ + + + | 01/28/ | Office | Cardiology | Vannesa Martinez | | | 2019 | Visit | | [address] | | | | | | [address] | | | | | | [facility] [place] [place] [address] | | | | | | [phone] | | | | | | | [...] 05/25/2017 | [place]OVATION | | 1:01 PMMRN: [id number] #: [id number] of : | | | 1965Admit Type: [...] | | | the anesthesiologist and the critical care technician in the pre-procedure | | | [...] In: 1:14:56 PMScope Out: 1:27:04 PM [facility] | | | [place], [address] [place] [address] | | | - Continue present medications. [...] were discussed with the patient. | | |Geln Dahl MD | | |05/25/2017 1:54:31 PM | | |This report has been signed electronically. | | |Number of Addenda: 0 | | |Note Initiated On: 05/25/2017 1:01 PM | | |Total Procedure Duration: 0 hours 12 minutes 8 seconds | | |Scope In: 1:14:56 PM | | |Scope Out: 1:27:04 PM | | | [facility], [address] [place] [address] | | | [address] | | + + -+ + +---------+ + + | Performing | Address | City/State/[facility] | Phone Number | [...] 05/25/2017 | [place] | | 1:00 PMMRN: [id number] #: [id number] of : | | | 1965Admit Type: AmbulatoryAge: 52Room: [facility] 02Gender: MaleNote | | | Status: FinalizedAttending MD: Glen Dahl , [facility]cedure: | | | ColonoscopyIndications: Screening for [...] the anesthesiologist and the | | | critical care technician in the pre-procedure area in the [...] | Initiated On: 05/25/2017 1:00 PM [facility] | | | [place], [address] [place] [address] | | | - Resume previous diet. [...] On: 05/25/2017 1:00 PM | | | [facility], [address] [place] [address] | | | [address] | | + + -+ + +---------+ [...] negative for fungal | | | organisms. JVR:[facility] FINAL PATHOLOGIC DIAGNOSIS: A. Gastric [...] Clinical correlation is requested. | | | JVR:[facility]:C2NR GROSS DESCRIPTION: The specimen is [...] | and slide preparation were performed by [facility], [address] | [address], [address], [place] [address] (American Indian Policy Specialist: Caesar Dos Santos | Raya Su M.D. CLIA#: [id number]). Professional interpretation was | | | performed by [facility], [facility] | | | Branch, [address] [place] [address] (American Indian Policy Specialist: | | | Caesar Su M.D.; CLIA#: [id number]). Diagnostician: Caesar Reyes | | | Georges [...]
--- OUTSIDE RECORDS SUMMARY | ~2019-09-04 | XMS | Encounter Summary ---
Demographics + + + | Address | [address] | | | [place] [address] | + + + | Home Phone | | + + + | Preferred Language | Unknown | + + + | Marital Status | Unknown | + + + | Buddhism Affiliation | Unknown | + + + | Race | Unknown | + + + | Ethnic Group | Unknown | + + + Author + + + | Author | [facility] | | | and [place] | + + + | Organization | [facility] | | | and [place] | + + + | Address | Unknown | + + + | Phone | Unavailable | + + + Support + + + + + | Name | Relationship | Address | Phone | + + + + + | Taurus Salinas | ECON | [place] | | | | | [address] | | + + + + + | Detailed Message | ECON | Unknown | | + + + + + Care Team Providers + +------+ + | Care Health Tech Name | Role | Phone | + +------+ + | Kenny Hernandez DO | PCP | | + +------+ + Encounter Details +--------+ + + + + | Date | Type | Department | Care Team | Description | +--------+ + + + + | 03/20/ | Hospital | [facility] | Conversion | Diagnosis unknown | | 2018 | Encounter | CONVERSION [address] | Transaction, | | | | | [address] | Provider Unknown | | | | | [place], [place] | | | | | | [address] | (Fax) | | | | | [phone] | | | +--------+ + + + [...] [place] | | | | | | [address] | | | | | | | | +--------+---------+ + + + | 01/28/ | Office | Cardiology | Vannesa Martinez | | | 2019 | Visit | | [address] | | | | | | [address] | | | | | | [place] [address] | | | | | | [phone] | | | | | | | [...]
--- OUTSIDE RECORDS SUMMARY | ~2019-09-04 | XMS | Encounter Summary ---
Demographics + + + | Address | [address] | | | [place] [address] | + + + | Home Phone [...] [place] | | | | | [address] | | + + + + + | Detailed Message | ECON | Unknown | | + + + + + Care Team Providers + +------+ + | Care Soaker Name | Role | Phone | + [...] + + | 06/01/ | Telephone | [facility] | Glen Dahl MD | Results | | 2017 | | GASTROENTEROLOGY | [address] [facility] | | | | | [address] [facility] | [place], [place] | | | | | [address] [place], [place] | [address] | | | | | [address] | [phone] | | | | | [phone] | | | +--------+ + + + [...] [place] | | | | | | [address] | | | | | | | | +--------+---------+ + + + | 01/28/ | Office | Cardiology | Vannesa Martinez | | | 2019 | Visit | | [address] | | | | | | [address] | | | | | | [place] [address] | | | | | | [phone] | | | | | | | | +--------+---------+ + + + documented as of this encounter Visit Diagnoses Not on filedocumented in this encounter"
--- OUTSIDE RECORDS SUMMARY | ~2019-09-04 | XMS | Encounter Summary ---
Demographics + + + | Address | [address] | | | [place] [address] | + + + | Home Phone | | + + + | Preferred Language | Unknown | + + + | Marital Status | Unknown | + + + | Jew Affiliation | Unknown | + + + | Race | Unknown | + + + | Ethnic Group | Unknown | + + + Author + + + | Author | [facility] | | | and [place] | + + + | Organization | [facility] | | | and [place] | + + + | Address | Unknown | + + + | Phone | Unavailable | + + + Support + + + + + | Name | Relationship | Address | Phone | + + + + + | Taurus Salinas | ECON | [place] | | | | | [address] | | + + + + + | Detailed Message | ECON | Unknown | | + + + + + Care Team Providers + +------+ + | Care Asbestos Removal Worker Name | Role | Phone | [...] [address] | Camille Wu MD | ([facility]); 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
--- OUTSIDE RECORDS SUMMARY | ~2019-09-04 | XMS | Encounter Summary ---
Demographics + + + | Address | [address] | | | [place] [address] | + + + | Home Phone | | + + + | Preferred Language | Unknown | + + + | Marital Status | Unknown | + + + | Quaker Affiliation | Unknown | + + + [...] [place] | | | | | [address] | | + + + + + | Detailed Message | ECON | Unknown | | + + + + + Care Team Providers + +------+ + | Care Claims Adjuster Name | Role | Phone | + [...] + + | 06/08/ | Telephone | [facility] | Glen Dahl MD | Results | | 2017 | | GASTROENTEROLOGY | [address] [facility] | | | | | [address] [facility] | [place], [place] | | | | | [address] [place], [place] | [address] | | | | | [address] | [phone] | | | | | [phone] | | | +--------+ + + + [...] [place] | | | | | | [address] | | | | | | | | +--------+---------+ + + + | 01/28/ | Office | Cardiology | Vannesa Martinez | | | 2019 | Visit | | [address] | | | | | | [address] | | | | | | [place] [address] | | | | | | [phone] | | | | | | | | +--------+---------+ + + + documented as of this encounter Visit Diagnoses Not on filedocumented in this encounter"
--- OUTSIDE RECORDS SUMMARY | ~2019-09-04 | XMS | Encounter Summary ---
Demographics + + + | Address | [address] | | | [place] [address] | + + + | Home Phone [...] [place] | | | | | [address] | | + + + + + | Detailed Message | ECON | Unknown | | + + + + + Care Team Providers + +------+ + | Care Utility Worker Forge Name | Role | Phone | + +------+ + | Kenny Hernandez DO | PCP | | + +------+ + Encounter Details +--------+ + + + + | Date | Type | Department | Care Team | Description | +--------+ + + + + | 04/18/ | Documentati | [facility] | Kelsie Reddy, | | | 2019 | on | CARDIOLOGY [place] | Technologist | | | | | [address] | | | | | | [facility] [place] | | | | | | [address] | | | | | | [phone] | | | +--------+ + + + [...] [place] | | | | | | [address] | | | | | | | | +--------+---------+ + + + | 01/28/ | Office | Cardiology | Vannesa Martinez | | | 2019 | Visit | | [address] | | | | | | [address] | | | | | | [place] [address] | | | | | | [phone] | | | | | | | | +--------+---------+ + + + documented as of this encounter Visit Diagnoses Not on filedocumented in this encounter"
--- OUTSIDE RECORDS SUMMARY | ~2019-09-04 | XMS | Encounter Summary ---
Demographics + + + | Address | [address] | | | [place] [address] | + + + | Home Phone | | + + + | Preferred Language | Unknown | + + + | Marital Status | Unknown | + + + | Voodoo Affiliation | Unknown | + + + [...] [place] | | | | | [address] | | + + + + + | Detailed Message | ECON | Unknown | | + + + + + Care Team Providers + +------+ + | Care Biomedical Engineering Internship Name | Role | Phone | + [...] Wu MD | | | | | [place], | | | | | | [place] [address] | | | | | | [phone] | | | +--------+ + + + [...] | | | | | | [place] [facility] | | | | | | [address] | | | | | | | | +--------+---------+ + + + | 01/28/ | Office | Cardiology | Vannesa Martinez | | | 2019 | Visit | | [address] | | | | | | [address] | | | | | | [place] [address] | | | | | | [phone] | | | | | | | | +--------+---------+ + + + documented as of this encounter Visit Diagnoses Not on filedocumented in this encounter"
--- OUTSIDE RECORDS SUMMARY | ~2019-09-04 | XMS | Encounter Summary ---
Demographics + + + | Address | [address] | | | [place] [address] | + + + | Home Phone | | + + + | Preferred Language | Unknown | + + + | Marital Status | Unknown | + + + | Yazidism Affiliation | Unknown | + + + | Race | Unknown | + + + | Ethnic Group | Unknown | + + + Author + + + | Author | [facility] | | | and [place] | + + + | Organization | [facility] | | | and [place] | + + + | Address | Unknown | + + + | Phone | Unavailable | + + + Support + + + + + | Name | Relationship | Address | Phone | + + + + + | Taurus Salinas | ECON | [place] | | | | | [address] | | + + + + + | Detailed Message | ECON | Unknown | | + + + + + Care Team Providers + +------+ + | Care High Rigger Name | Role | Phone | + [...] [address] | Camille Wu MD | ([facility]); 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
--- OUTSIDE RECORDS SUMMARY | ~2019-09-04 | XMS | Encounter Summary ---
Demographics + + + | Address | [address] | | | [place] [address] | + + + | Home Phone | | + + + | Preferred Language | Unknown | + + + | Marital Status | Unknown | + + + | Roman Catholic Affiliation | Unknown | + + + | Race | Unknown | + + + | Ethnic Group | Unknown | + + + Author + + + | Author | [facility] | | | and [place] | + + + | Organization | [facility] | | | and [place] | + + + | Address | Unknown | + + + | Phone | Unavailable | + + + Support + + + + + | Name | Relationship | Address | Phone | + + + + + | Taurus Salinas | ECON | [place] | | | | | [address] | | + + + + + | Detailed Message | ECON | Unknown | | + + + + + Care Team Providers + +------+ + | Care Stunt Woman Name | Role | Phone | + +------+ + | Kenny Hernandez DO | PCP | | + +------+ + Encounter Details +--------+ + + + + | Date | Type | Department | Care Team | Description | +--------+ + + + + | 04/14/ | Orders Only | [facility] | Provider, | | | 2019 | | SYSTEM GENERIC OP | [address] | | | | | CONVERSION [address] | [place] | | | | | [address] [place], [place] | [place] [address] | | | | | [address] | | | | | | [phone] | | | +--------+ + + + [...] [place] | | | | | | [address] | | | | | | | | +--------+---------+ + + + | 01/28/ | Office | Cardiology | Vannesa Martinez | | | 2019 | Visit | | [address] | | | | | | [address] | | | | | | [place] [address] | | | | | | [phone] | | | | | | | | +--------+---------+ + + + documented as of this encounter Visit Diagnoses Not on filedocumented in this encounter"
--- OUTSIDE RECORDS SUMMARY | ~2019-09-04 | XMS | Encounter Summary ---
Demographics + + + | Address | [address] | | | [place] [address] | + + + | Home Phone [...] | [place] | | | | | [address] | | + + + + + | Detailed Message | ECON | Unknown | | + + + + + Care Team Providers + +------+ + | Care Woodworking Bench Carpenter Name | Role | Phone | + [...] + + + + | 05/25/ | [facility] | [facility] | Glen Dahl MD | Dysphagia, | | 2017 | Encounter | MED CTR MP INTRA OP | [address] | unspecified type; | | | | [address] | [place] | Gastroesophageal | | | | [place] | [address] | reflux disease, | | | | [address] | [phone] | esophagitis presence | | | | [phone] | | not specified; | | | [...] the physician who did your procedure at [phone] if you have any questions or experience any of the following: ? Increasing abdominal pain, nausea, or vomiting. ? Chills and fever over 101F. ? New abdominal swelling or bloating. ? Signs of rectal bleeding (black or red stool). If you cannot get a hold of your physician, then call the [facility] [phone] . If necessary, report to the Emergency Department at [facility]. Quit smoking: If you smoke [...] [place] | | | | | | [address] | | | | | | | | +--------+---------+ + + + | 01/28/ | Office | Cardiology | Vannesa Martinez | | | 2019 | Visit | | [address] | | | | | | [address] | | | | | | [place] [address] | | | | | | [phone] | | | | | | | [...] 05/25/2017 | PROVATION | | 1:01 PMMRN: [id number] #: [id number] of : | | | 1965Admit Type: AmbulatoryAge: 52Room: [facility] 02Gender: MaleNote | | | Status: [...] | | | the anesthesiologist and the electronic security technician in the pre-procedure | | | [...] | In: 1:14:56 PMScope Out: 1:27:[address] [facility] | | | [place], [address] [place] [address] | | | - Continue present medications. [...] |Scope Out: 1:27:04 PM | | | [facility], [address] [place] [address] | | | [address] | | + + -+ + +---------+ [...] 05/25/2017 | PROVATION | | 1:00 PMMRN: [id number] #: [id number] of : | | | 1965Admit Type: AmbulatoryAge: 52Room: [facility] 02Gender: MaleNote | | | Status: FinalizedAttending MD: Glen Dahl MDProcedure: | | | ColonoscopyIndications: Screening for colorectal | | | malignant neoplasmProviders: Glen Dahl MD, Adriane | | | JASON Arita, Dong Bartlett, [facility], | | | MARK CHERRY DO (Anesthesia [...] the anesthesiologist and the | | | electronic security technician in the pre-procedure area in the [...] | | Initiated On: 05/25/2017 1:[address] [facility] | | | Center, [address] [place] [address] | | | - Resume previous diet. [...] On: 05/25/2017 1:00 PM | | | [facility], [address] [place] [address] | | | [address] | | + + -+ + +---------+ [...] negative for fungal | | | organisms. JVR:[facility] FINAL PATHOLOGIC DIAGNOSIS: A. Gastric biopsies: | [...] Clinical correlation is requested. | | | JVR:[facility]:C2NR GROSS DESCRIPTION: The specimen is received in [...] | and slide preparation were performed by Kiko, [address] | | [facility], [address], [place] [address] (Flying Squad Salesperson: Caesar | | Raya Su M.D. CLIA#: [id number]). Professional interpretation was | | | performed by Kiko, [facility] | | | Branch, [address], [place] [address] (Flying Squad Salesperson: | | | Caesar Su M.D.; CLIA#: [id number]). Diagnostician: Caesar Reyes | | | Georges [...]
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
--- OUTSIDE RECORDS SUMMARY | ~2019-09-04 | XMS | Encounter Summary ---
Demographics + + + | Address | [address] | | | [place] [address] | + + + | Home Phone | | + + + | Preferred Language | Unknown | + + + | Marital Status | Unknown | + + + | Christianity Affiliation | Unknown | + + + | Race | Unknown | + + + | Ethnic Group | Unknown | + + + Author + + + | Author | [facility] | | | and [place] | + + + | Organization | [facility] | | | and [place] | + + + | Address | Unknown | + + + | Phone | Unavailable | + + + Support + + + + + | Name | Relationship | Address | Phone | + + + + + | Taurus Salinas | ECON | [place] | | | | | [address] | | + + + + + | Detailed Message | ECON | Unknown | | + + + + + Care Team Providers + +------+ + | Care Over The Horizon Targeting Supervisor Name | Role | Phone | [...] + + | 04/24/ | Documentati | [facility] | Kelsie Reddy, | Other (urgent | | 2019 | on | CARDIOLOG[place] | Technologist | report) | | | | [address] | | | | | | [place] | | | | | | [address] | | | | | | [phone] | | | +--------+ + + + [...] [place] | | | | | | [address] | | | | | | | | +--------+---------+ + + + | 01/28/ | Office | Cardiology | Vannesa Martinez | | | 2019 | Visit | | [address] | | | | | | [address] | | | | | | [place] [address] | | | | | | [phone] | | | | | | | | +--------+---------+ + + + documented as of this encounter Visit Diagnoses Not on filedocumented in this encounter"
--- OUTSIDE RECORDS SUMMARY | ~2019-09-04 | XMS | Encounter Summary ---
Demographics + + + | Address | [address] | | | [place] [address] | + + + | Home Phone | | + + + | Preferred Language | Unknown | + + + | Marital Status | Unknown | + + + | Nondenominational Affiliation | Unknown | + + + | Race | Unknown | + + + | Ethnic Group | Unknown | + + + Author + + + | Author | [facility] | | | and [place] | + + + | Organization | [facility] | | | and [place] | + + + | Address | Unknown | + + + | Phone | Unavailable | + + + Support + + + + + | Name | Relationship | Address | Phone | + + + + + | Taurus Salinas | ECON | [place] | | | | | [address] | | + + + + + | Detailed Message | ECON | Unknown | | + + + + + Care Team Providers + +------+ + | Care Type Casting Machine Operator Name | Role | Phone | + +------+ + | Kenny Hernandez DO | PCP | | + +------+ + Encounter Details +--------+ + + + + | Date | Type | Department | Care Team | Description | +--------+ + + + + | 04/14/ | Orders Only | [facility] | Provider, | | | 2019 | | SYSTEM GENERIC OP | [address] | | | | | CONVERSION [address] | [address] | | | | | [address] [place], [place] | [place] [address] | | | | | [address] | | | | | | [phone] | | | +--------+ + + + [...] [place] | | | | | | [address] | | | | | | | | +--------+---------+ + + + | 01/28/ | Office | Cardiology | Vannesa Martinez | | | 2019 | Visit | | [address] | | | | | | [address] | | | | | | [place] [address] | | | | | | [phone] | | | | | | | | +--------+---------+ + + + documented as of this encounter Visit Diagnoses Not on filedocumented in this encounter"
--- OUTSIDE RECORDS SUMMARY | ~2019-09-04 | XMS | Encounter Summary ---
Demographics + + + | Address | [address] | | | [place] [address] | + + + | Home Phone [...] [place] | | | | | [address] | | + + + + + | Detailed Message | ECON | Unknown | | + + + + + Care Team Providers + +------+ + | Care Weight Reduction Specialist Name | Role | Phone | + +------+ + | Kenny Hernandez DO | PCP | | + +------+ + Encounter Details +--------+ + + + + | Date | Type | Department | Care Team | Description | +--------+ + + + + | 03/20/ | Hospital | [facility] | Conversion | Diagnosis unknown | | 2018 | Encounter | [address] | Transaction, | | | | | [address] | Provider Unknown | | | | | [place], [place] | | | | | | [address] | (Fax) | | | | | [phone] | | | +--------+ + + + [...] [place] | | | | | | [address] | | | | | | | | +--------+---------+ + + + | 01/28/ | Office | Cardiology | Vannesa Martinez | | | 2019 | Visit | | [address] | | | | | | [address] | | | | | | [place] [address] | | | | | | [phone] | | | | | | | [...]
--- OUTSIDE RECORDS SUMMARY | ~2019-09-04 | XMS | Encounter Summary ---
Demographics + + + | Address | [address] | | | [place] [address] | + + + | Home Phone [...] + + + | Author | [facility] | | | and [place] | + + + | Organization | [facility] | | | and [place] | + + + | Address | Unknown | + + + | Phone | Unavailable | + + + Support + + + + + | Name | Relationship | Address | Phone | + + + + + | Taurus Salinas | ECON | [place] | | | | | [address] | | + + + + + | Detailed Message | ECON | Unknown | | + + + + + Care Team Providers + +------+ + | Care Carpet Layer Name | Role | Phone | + [...] + + | 06/21/ | Telephone | [facility] | [place], | Other (labs) | | 2016 | | GASTROENTEROLOGY | [address] | | | | | [address] [place] | [place], [address] | | | | | [address] [place], [place] | [place] | | | | | [address] | [address] | | | | | [phone] | | | +--------+ + + + [...] [place] | | | | | | [address] | | | | | | | | +--------+---------+ + + + | 01/28/ | Office | Cardiology | Vannesa Martinez | | | 2019 | Visit | | [address] | | | | | | [address] | | | | | | [place] [address] | | | | | | [phone] | | | | | | | | +--------+---------+ + + + documented as of this encounter Visit Diagnoses Not on filedocumented in this encounter"
--- OUTSIDE RECORDS SUMMARY | ~2019-09-04 | XMS | Encounter Summary ---
Demographics + + + | Address | [address] | | | [place] [address] | + + + | Home Phone [...] [place] | | | | | [address] | | + + + + + | Detailed Message | ECON | Unknown | | + + + + + Care Team Providers + +------+ + | Care Fire Extinguisher Charger Name | Role | Phone | + [...] + + | 06/08/ | Telephone | [facility] | Glen Dahl MD | Results | | 2017 | | GASTROENTEROLOGY | [address] [facility] | | | | | [address] [facility] | [place], [place] | | | | | [address] [place], [place] | [address] | | | | | [address] | [phone] | | | | | [phone] | | | +--------+ + + + [...] [place] | | | | | | [address] | | | | | | | | +--------+---------+ + + + | 01/28/ | Office | Cardiology | Vannesa Martinez | | | 2019 | Visit | | [address] | | | | | | [address] | | | | | | [place] [address] | | | | | | [phone] | | | | | | | | +--------+---------+ + + + documented as of this encounter Visit Diagnoses Not on filedocumented in this encounter"
[2019-09-04] MEDS ORDERED: LOSARTAN POTAS100 MG PO (09:25)
[2019-09-04] MEDS ORDERED: BACLOFEN10 MG PO (09:25)
--- NOTE | 2019-09-04 12:14 | NUR ---
PT RECEIVED RFOM ED. PT ON ROOM AIR, DOES NOT APPEAR TO BE IN RESPIRATORY DISTRESS. PT CONTINUES TO REPORT MID BACK PAIN THAT BEGAN YESTERDAY. VSS. IV BOLUS COMPLETED. PT REPORT OF RASH TO LEFT ARM, FINGERNAILS BRITTLE AND FALLING OFF. ADMISSION INTAKE COMPLETED, ASSESSMENT DEFERED TO REECE GOMEZ REPORT GIVEN.
--- NOTE | 2019-09-04 14:34 | NUR ---
ZAHIRA FROM LAB CALL FOR CRITICAL LAB VALUE FOR TROPONIN OF 0.028. DR CORREA AT DESK AND NOTIFIED. NO NEW ORDERS.
--- NOTE | 2019-09-04 14:47 | NUR ---
PATIENT REFUSED TO TAKE BACLOFEN. PATIENT SAID, "I NEED TO LOOK AT MY PILLS SO I KNOW WHAT I'M TAKING." ADVISED PATIENT THAT PHARMACY WILL BE LOOKING INTO HIS MEDICATIONS AND REVIEWING WITH PATIENT. BACLOFEN RETURNED TO [facility]. DR. CORREA AND PHARMACY WILL BE NOTIFIED.
--- NOTE | 2019-09-04 17:10 | EKG ---
[facility] [address] [facility] [place] [address] Signed Atrial fibrillation with rapid ventricular response Left axis deviation Nonspecific ST and T wave abnormality Abnormal ECG When compared with ECG of 18-APR-2019 18:06, Nonspecific T wave abnormality now evident in Lateral leads Confirmed by JUICE CORREA DO ([id number]) on 09/04/2019 5:10:44 PM Electronically Signed By: JUICE CORREA DO 09/04/19 1710 PATIENT NAME: ALINE DUKE RO Electrocardiogram DATE OF : 61 PHYSICIAN: JUICE CORREA DO REPORT #: [id number] REPORT IS CONFIDENTIAL AND NOT TO BE RELEASED WITHOUT AUTHORIZATION
--- NOTE | 2019-09-04 17:30 | NUR ---
PT SITTING UP I NBED. TELE #[address] HR 77 AND IRREGULAR. DINNER AT [facility]. CALL LIGHT IN REACH.
--- NOTE | 2019-09-04 17:49 | NUR ---
PATIENT IS SETTING UP IN BED . FRESH WATER WAS GIVEN AND CALL LIGHT IN REACH VITALS TAKEN.
--- NOTE | 2019-09-04 20:18 | NUR ---
PATIENT WANTING HIS "HICCUP MEDS", BUT HE DOESN'T KNOW WHAT THEY ARE. CIWA WAS 10 AND GIVEN 10MG PO VALIUM, AND INFORMED THE PATIENT THAT SHOULD HELP WITH HIS HICCUPS AND SLEEP.
--- NOTE | 2019-09-04 20:35 | NUR ---
WAS NOTIFIED BY CCU JASON MCINTYRE OF TELE SHOWING PERIODS OF A-FIB AND A-FLUTTER WITH 2 SEC PAUSES. WILL CONTINUE TO MONITOR.
--- NOTE | 2019-09-04 23:27 | NUR ---
2230 PATIENT RESTING QUIETLY IN BED, LIGHTS OUT, EYES CLOSED, RESPIRATIONS REGULAR AND EVEN. CALL LIGHT IN REACH.
--- NOTE | 2019-09-04 23:29 | NUR ---
PATIENT JUST SPILLED HIS URINAL ALL OVER AND THIS WAS CLEANED UP AND PATIENT WANTED A NEW GLASS OF WATER WHICH HE GOT. CALL LIGHT IN REACH.
--- NOTE | 2019-09-05 01:40 | NUR ---
PATIENT REMAINS AWAKE WATCHING TV. NO NEEDS AT THIS TIME. CALL LIGHT IN REACH.
--- NOTE | 2019-09-05 03:32 | NUR ---
PATIENT STILL SITTING IN BED WATCHING TV, STILL WANTING TO KNOW ABOUT APPROVING HIS HICCUP MEDS. I TOLD HIM WE REALLY DID NOT HAVE ANY MEDS FOR THE HICCUPS ORDERED AT THIS TIME AND BESIDES HE ISN'T HAVING THE HICCUPS ANY WAY. HE SAID HE GUESSED HE WOULD SEE THE DOCTER IN THE MORNING. CALL LIGHT IN REACH.
--- NOTE | 2019-09-05 04:03 | NUR ---
WAS BACK IN PATIENT'S ROOM AND HE ASKED ME IF I BROUGHT HIS "HICCUP PILL," AND I INFORMED HIM AGAIN I DID NOT HAVE ANYTHING THAT WAS ORDERED FOR HICCUPS EXCEPT THE VALIUM I GAVE HIM EARLIER MIGHT WORK BECAUSE HE DIDN'T HAVE THE HICCUPS AND STILL DOESN'T HAVE THE HICCUPS, AND SINCE HE SAID,"THE DOCTOR WAS THE ONE THAT TOOK THE PILLS YOU WILL HAVE TO GET THEM FROM THE DOCTOR." I INFORMED THE PATIENT TO LET ME KNOW IF HE GETS THE HICCUPS, BUT OTHERWISE HE CAN TALK TO THE DRNathan IN THE MORNING.CALL LIGHT IN REACH.
--- NOTE | 2019-09-05 06:00 | NUR ---
PATIENT DID NOT REALLY SLEEP LAST NIGHT. PATIENT HAS BEEN FIXATED ON GETTING A HICCUP PILL THE PATIENT SAID TOOK WITH HIM TO TRY AND GET APPROVED. PATIENT HAS NOT HAD THE HICCUPS AT ALL, BUT DID GET SOME VALIUM AT THE BEGINING OF THE SHIFT HE WAS NERVOUS AND KIND OF SHAKY. PATIENT VOIDS IN SMALL AMOUNTS, USUALLY ABOUT 125ML AT A TIME. IV IS SL NOW. PATIENT DOES NOT LIKE OUR WATER OR OUR APPLE JUICE AND DIDN'T REALLY WANT ANYTHING BUT TOMOATO JUICE, WHICH WE DON'T HAVE. PATIENT STILL AWAKE AND CALL LIGHT IN REACH.
--- NOTE | 2019-09-05 07:18 | NUR ---
REPORT RECEIVED FROM GRIP WRAPPER RN. TELE # [phone] AFIB RHYTHM HR OF 62. CALL LIGHT IN REACH.
--- NOTE | 2019-09-05 08:00 | NUR ---
TALKED TO PATIENT'S RN ABOUT HIS CARE TODAY. RN WILL NOTIFIEY ME WHEN NEEDED. PLAN TO ADDRESS AM CARE LATER TODAY WHEN PATIENT IS CALM.
--- NOTE | 2019-09-05 09:00 | NUR ---
CIWA OF 8. 5MG VALUM ADMINSITERED. ASSEMENT COMPLETED. PT DENIES PAIN. HR STABLE. MEDICAITONS GIVEN. ATE 100% OF BREAKFAST. PT IS ALERT AND ORIENTED. NO FURTHER NEEDS.
--- NOTE | 2019-09-05 09:00 | NUR ---
RN STATES THAT SHE TALKED TO THE pt ABOUT AM CARE AND TOOK CARE OF IT.
[2019-09-05] MEDS ORDERED: CARVEDILOL25 MG PO (10:16)
[2019-09-05] MEDS ORDERED: VITAMIN B-1100 M1 PO (10:17)
[2019-09-05] MEDS ORDERED: TORSEMIDE10 MG PO (10:17)
== END 2019-09-05 13:00 | disposition home or self-care (01) | DRG 682 ==
LOC: ED 08:08 → MS 08:09
PROVIDERS: ADMIT Student in an Organized Health Care Education/Training Program
DX: N17.9 Acute kidney failure, unspecified (principal); I21.A1 Myocardial infarction type 2; I42.9 Cardiomyopathy, unspecified; I48.91 Unspecified atrial fibrillation; I10 Essential (primary) hypertension; E86.0 Dehydration; E87.6 Hypokalemia; E83.42 Hypomagnesemia; J44.9 Chronic obstructive pulmonary disease, unspecified; F10.10 Alcohol abuse, uncomplicated; L25.9 Unspecified contact dermatitis, unspecified cause; L60.9 Nail disorder, unspecified; K70.10 Alcoholic hepatitis without ascites; Z87.891 Personal history of nicotine dependence; Z86.73 Personal history of transient ischemic attack (TIA), and cerebral infarction without residual deficits; Z91.14 Patient's other noncompliance with medication regimen; Z79.899 Other long term (current) drug therapy; Z79.01 Long term (current) use of anticoagulants
CPT/HCPCS: 36415; 70450; 71046; 80053; 80162; 81001; 83735; 83880; 84484; 85025; 85610; 93005; 93010; 96360; 96361; 99285-25; G0480; J3475; J3480; J7030; J7060; J7121

== ENCOUNTER 2024-05-29 09:02 | Emergency (ER) | payer MEDICARE, OTHER ==
[~2024-05-29] VITALS: Ht 175.3 cm; Wt 100.5 kg
[~2024-05-29 09:02] MED LIST changes: +BACLOFEN10 MG PO; +CRESTOR40 MG PO; +FOLIC ACID1 MG PO; +ISOSORBIDE DINI20 MG PO; +K-TAB ER20 MEQ PO; +LOSARTAN-HCTZ1 EAC1 PO; +MAG DELAY64 M1 PO; +NEURONTIN100 MG PO; +POTASSIUM CHLO20 ME1 PO; +ROSUVASTATIN CA40 MG PO; +TOPROL XL50 MG PO; +TORSEMIDE10 MG PO; +TORSEMIDE20 MG PO; +VITAMIN B-1100 M1 PO
[2024-05-29] MEDS ORDERED: ALBUTEROL/IPRATROPIUM 3 ML NEB INH PRN (09:15)
[2024-05-29 09:26] LABS: BASOPHILS 0.2 % (0-2); EOSINOPHILS 0.6 % (0-6); HEMATOCRIT 51.5 % (35.0-50.0); LYMPHOCYTES 4.4 % (24-44); MCH 33.7 (27-36); MONOCYTES 8.4 % (0-12); NEUTROPHILS 86.4 % (39-80); PLATELET COUNT 183 K/uL (140-440); RBC 5.05 M/ul (4.3-5.7); RDW 19.4 (10.5-15.0)
[2024-05-29] MEDS ORDERED: dilTIAZem HCL 25 MG/5 ML VIAL IV ONE ×3 (09:30→09:45)
[2024-05-29] MEDS ORDERED: NITROGLYCERIN PACKET TOP ONE ×2 (10:00→10:45)
[2024-05-29] MEDS ORDERED: FUROSEMIDE 40 MG/4 ML VIAL IV ONE (10:00)
[2024-05-29 10:09] LABS: ALBUMIN 3.6 g/dL (3.4-5.0); ALBUMIN/GLOBULIN RATIO 1.29 (1.1-2.4); ANION GAP 21.5 (7-21); BILIRUBIN, TOTAL 4.2 ng/dL (0.2-1.0); BUN/CREATININE RATIO 17.54 (6.0-28.6); CALCIUM 9.5 mg/dL (8.5-10.1); CREATININE, SERUM 1.14 mg/dL (0.70-1.30); MAGNESIUM 1.4 mg/dL (1.8-2.4); POTASSIUM 3.5 mmol/L (3.5-5.1); PROTEIN, TOTAL 6.4 g/dL (6.4-8.2)
[2024-05-29] MEDS ORDERED: ASPIRIN 81 MG CHEW PO ONE (10:45)
[2024-05-29] MEDS ORDERED: DILTIAZEM HCl/D5W 125 ML IV SCH (12:00)
[2024-05-29 14:32] VITALS: BP 167/136
--- NOTE | 2024-05-29 21:45 | EKG ---
[facility] [address] [facility] [place] [address] Signed Atrial fibrillation with rapid ventricular response Left axis deviation Septal infarct , age undetermined Abnormal ECG When compared with ECG of 15-MAR-2020 10:17, Vent. rate has increased Confirmed by Anderson Renner MD () on 05/29/2024 9:45:34 PM Electronically Signed By: ANDERSON RENNER MD 05/29/24 2145 PATIENT NAME: ALINE DUKE RO Electrocardiogram DATE OF : 61 PHYSICIAN: ANDERSON RENNER MD REPORT #: [id number] REPORT IS CONFIDENTIAL AND NOT TO BE RELEASED WITHOUT AUTHORIZATION
== END 2024-05-29 14:43 | disposition short-term general hospital (02) ==
LOC: ED 09:02
PROVIDERS: Emergency Medicine
DX: I11.0 Hypertensive heart disease with heart failure (principal); I50.9 Heart failure, unspecified; I48.91 Unspecified atrial fibrillation; I21.4 Non-ST elevation (NSTEMI) myocardial infarction; Z79.01 Long term (current) use of anticoagulants; Z79.899 Other long term (current) drug therapy
CPT/HCPCS: 36415; 51702; 71045; 80053; 83735; 83880; 84484; 85025; 93005; 93010; 99285-25; A9270; J1940

== ENCOUNTER 2024-12-18 08:32 | Inpatient (IN) | payer MEDICARE, MEDICAID ==
[2024-12-18] VITALS (8 sets, daily range): BP systolic 130–164; BP diastolic 85–131
[~2024-12-18] VITALS: Ht 175.3 cm; Wt 83.7 kg
[2024-12-18] MEDS ORDERED: LABETALOL HCL 20 MG/4 ML VIAL IV ONE ×2 (09:00→10:15)
[2024-12-18 09:14] LABS: BASOPHILS 0.3 % (0-2); HEMATOCRIT 53.7 % (35.0-50.0); HEMOGLOBIN 18.8 g/dL (12.0-18.0); LYMPHOCYTES 2.7 % (24-44); MCH 32.1 (27-36); MCHC 34.9 g/dl (30-36); MONOCYTES 2.8 % (0-12); NEUTROPHILS 94.2 % (39-80); PLATELET COUNT 177 K/uL (140-440); RBC 5.84 M/ul (4.3-5.7); RDW 15.9 (10.5-15.0)
[2024-12-18 09:18] LABS: INR 1.15 (0.80-1.30); PROTIME 14.2 Sec (11.2-14.2)
[2024-12-18 09:27] LABS: ALBUMIN/GLOBULIN RATIO 1.29 (1.1-2.4); ALCOHOL, MEDICAL <3 ng/dL (<3); ALKALINE PHOSPHATASE 75 U/L (46-116); ALT (SGPT) 19 U/L (14-59); ANION GAP 15.7 (7-21); AST (SGOT) 18 U/L (15-37); BILIRUBIN, TOTAL 1.3 mg/dL (0.2-1.0); CALCIUM 9.2 mg/dL (8.5-10.1); CARBON DIOXIDE 24 mmol/L (21-32); CHLORIDE 100 mmol/L (98-107); GLOMERULAR FILTRATION RATE,EST 86 mL/min (>60); POTASSIUM 3.7 mmol/L (3.5-5.1); PROTEIN, TOTAL 7.1 g/dL (6.4-8.2); UREA NITROGEN 14 mg/dL (7-18)
[2024-12-18] MEDS ORDERED: SODIUM CHLORIDE 0.9% 500 ML IV PRN (09:45)
[2024-12-18 10:32] LABS: AMPHETAMINES, URINE NEGATIVE (NEGATIVE); BARBITURATES, URINE NEGATIVE (NEGATIVE); BENZODIAZEPINE, URINE NEGATIVE (NEGATIVE); BUPRENORPHINE, URINE NEGATIVE (NEGATIVE); CANNABINOID, URINE POSITIVE (NEGATIVE); COCAINE, URINE NEGATIVE (NEGATIVE); ECSTASY, URINE NEGATIVE (NEGATIVE); FENTANYL, URINE NEGATIVE (NEGATIVE); METHADONE, URINE NEGATIVE (NEGATIVE); OPIATES, URINE NEGATIVE (NEGATIVE); OXYCODONE, URINE NEGATIVE (NEGATIVE); PHENCYCLIDINE, URINE NEGATIVE (NEGATIVE)
[2024-12-18] MEDS ORDERED: MORPHINE SULFATE 4 MG/ML VIAL IV ONE (11:45)
[2024-12-18] MEDS ORDERED: APIXABAN 5 MG TAB PO ONE (12:00)
[2024-12-18] MEDS ORDERED: METOPROLOL TARTRATE 25 MG TAB PO SCH ×2 (13:26→17:45)
[2024-12-18] MEDS ORDERED: FUROSEMIDE 40 MG/4 ML VIAL IV ONE (13:30)
[2024-12-18] MEDS ORDERED: PANTOPRAZOLE SODIUM 40 MG/10 ML VIAL IV ONE (13:45)
[2024-12-18] MEDS ORDERED: niCARdipine HCL 50 MG in DEXTROSE 5% 250 ML IV SCH (14:30)
[2024-12-18] MEDS ORDERED: ACETAMINOPHEN 325 MG TAB PO PRN (15:15)
[2024-12-18] MEDS ORDERED: ondansetron HCL 4 MG/2 ML VIAL IV PRN (15:15)
[2024-12-18] MEDS ORDERED: NICOTINE 21 MG/24 HR 1 EA TDSY TD SCH (15:16)
[2024-12-18] MEDS ORDERED: FARXIGA10 MG PO (16:38)
[2024-12-18] MEDS ORDERED: ENTRESTO 24 MG1 EACH PO (16:38)
[2024-12-18] MEDS ORDERED: FUROSEMIDE40 MG PO (16:39)
[2024-12-18] MEDS ORDERED: GABAPENTIN300 MG PO (16:40)
[2024-12-18] MEDS ORDERED: SPIRONOLACTONE25 MG PO (16:40)
--- NOTE | 2024-12-18 16:45 | NUR ---
THIS RN DOWN TO GET PATIENT FROM ER AND TRANSFER TO ROOM 127. PATIENT STOOD USED URINAL UPON ARRIVAL TO ROOM AND THEN INTO BED. PATIENT STEADY ON HIS FEET. REVIEWED BELONINGS WITH PATIENT. PATIENT ON MONITOR. NICARDAPIN GTT AT 5MG/HOUR UPON ARRIVAL TO CCU. PATIENT HR ELEVATED WITH ACTIVITY. PLACED A MALE EXTERNAL CATHETER FOR FREQUENT URINATION D/T LASIX. PATIENT TOELRATING DEVICE WELL.
--- NOTE | 2024-12-18 16:51 | EKG ---
[facility] [address] [facility] [place] [address] Signed Atrial fibrillation Left anterior fascicular block Anteroseptal infarct (cited on or before 29-MAY-2024) Abnormal ECG When compared with ECG of 29-MAY-2024 09:12, Vent. rate has decreased BY 88 BPM Nonspecific T wave abnormality now evident in Inferior leads Confirmed by Beau Juárez MD ([id number]) on 12/18/2024 4:51:35 PM Electronically Signed By: BEAU JUÁREZ MD 12/18/24 1651 PATIENT NAME: ALINE DUKE Electrocardiogram DATE OF : 61 PHYSICIAN: BEAU JUÁREZ MD REPORT #: [id number] REPORT IS CONFIDENTIAL AND NOT TO BE RELEASED WITHOUT AUTHORIZATION
[2024-12-18] MEDS ORDERED: OXYCODONE HCL 5 MG TAB PO PRN (17:00)
[2024-12-18] MEDS ORDERED: MORPHINE SULFATE 4 MG/ML VIAL IV PRN (17:00)
[2024-12-18] MEDS ORDERED: WARFARIN SOD 5 MG TAB PO ONE ×2 (17:30→21:00)
--- NOTE | 2024-12-18 17:30 | NUR ---
MD IN UNIT AND PER MD GOAL SYSTOLIC OF 180 BLOOD PRESSURE. NICARDAPINE GTT STOPPED AT THIS TIME WITH BP SYSTOLIC 151/110.
[2024-12-18] MEDS ORDERED: ENOXAPARIN SODIUM 80 MG/0.8 ML SYR SUB-Q SCH (17:45)
--- NOTE | 2024-12-18 18:06 | NUR ---
pharmacist in to speak with patient. patient resting in bed. dinner at the bedside.
--- NOTE | 2024-12-18 18:29 | NUR ---
MED REC COMPLETE
--- NOTE | 2024-12-18 18:59 | NUR ---
SPOKE WITH EPHARMESTER AND PER PHARMACY OKAY TO GIVE ZEENAT ARGUETA AT HS WITH CURRENT PT/INR AND PRIOR 1 TIME DOSE OF ELIQUIS AT 1215 TODAY. WILL UPDATE .
[2024-12-18 19:14] LABS: ANION GAP 14.4 (7-21); BUN/CREATININE RATIO 10.81 (6.0-28.6); CALCIUM 9.2 mg/dL (8.5-10.1); CREATININE, SERUM 1.11 mg/dL (0.70-1.30); MAGNESIUM 1.6 mg/dL (1.8-2.4); POTASSIUM 3.4 mmol/L (3.5-5.1)
--- NOTE | 2024-12-18 19:35 | NUR ---
UPDATED ON PATIENT'S LABS
[2024-12-18] MEDS ORDERED: POTASSIUM CHLORIDE 10 MEQ TABCR PO ONE (19:45)
[2024-12-18] MEDS ORDERED: MAGNESIUM SULFATE 2 GM/50 ML BAG IV SCH (20:00)
--- NOTE | 2024-12-18 20:30 | NUR ---
PATIENT PROVIDED MEDS PER ORDER. PATIENT SITTING AT EDGE OF BED WATCHING TV. PATIENT IS AAOX4. COMPLAINS OF MILD SOB, WHICH IS HIS "NORMAL". LUNG SOUNDS ARE CLEAR. TOLERATING ROOM AIR. ABD IS MILDLY DISTENDED. PATIENT REPORTS 4/10 UPPER ABD PAIN, DENIED NEED FOR INTERVENTIONS. VS STABLE. SYSTOLIC BP < 180 PER ORDER. IV SITE WNL, SL. PATIENT PROVIDED FRESH WATER. DENIED OTHER NEEDS. CALL LIGHT IN REACH.
--- NOTE | 2024-12-18 22:00 | NUR ---
PATIENT IN BED, EYES CLOSED. VS STABLE. IV MAG FINSIHED; IV SITE WNL. CALL LIGHT IN REACH.
--- NOTE | 2024-12-18 23:04 | NUR ---
PATIENT REPORTS LEG CRAMPS. WARM BLANKET PROVIDED. PATIENT DENIED NEED FOR PRN MEDS.
--- NOTE | 2024-12-18 23:17 | NUR ---
PATIENT UP TO MOVE AROUND THE ROOM DUE TO LEG CRAMPS. MALE PUREWIC REMOVED. PATIENT VOIDING LESS OFTEN NOW AND WOULD LIKE TO USE THE TOILET. PATIENT IS STEADY ON HIS FEET. DENIED FEELING INCREASED SOB OR DIZZY WITH AMBULATION. PATIENT DID GO TO THE BATHROOM AND THEN BACK TO SIT ON THE EDGE OF THE BED. DENIED OTHER NEEDS.
[2024-12-19] VITALS (12 sets, daily range): BP systolic 126–159; BP diastolic 87–120
--- NOTE | 2024-12-19 00:30 | NUR ---
PATIENT IN BED. EYES CLOSED. VS STABLE. ALLOWED PATIENT TO REST. CALL LIGHT IN REACH.
--- NOTE | 2024-12-19 02:00 | NUR ---
PATIENT UP TO THE BATHROOM. SBA. PATIENT TOLERATED WELL. RETURNED TO BED. CALL LIGHT IN REACH.
--- NOTE | 2024-12-19 05:00 | NUR ---
LAB IN ROOM FOR MORNING DRAW. PATIENT TOELRATED WELL. PATIENT UP TO THE BATHROOM, STEADY ON FEET. PATIENT DID NOT VOID TO THE COLLECTION HAT. REMINDED PATIENT OF NEED TO MEASURE OUTPUT. PATIENT AGREES. PATIENT RETURNED TO BED. DENIED OTHER NEEDS.
[2024-12-19 05:29] LABS: EOSINOPHILS 1.5 % (0-6); HEMATOCRIT 57.1 % (35.0-50.0); HEMOGLOBIN 19.9 g/dL (12.0-18.0); LYMPHOCYTES 7.7 % (24-44); MCH 32.3 (27-36); MCHC 34.8 g/dl (30-36); MCV 92.6 fl (81-99); NEUTROPHILS 81.8 % (39-80); PLATELET COUNT 184 K/uL (140-440); RBC 6.17 M/ul (4.3-5.7); RDW 16.3 (10.5-15.0)
[2024-12-19 05:45] LABS: ANION GAP 9.3 (7-21); BUN/CREATININE RATIO 10.09 (6.0-28.6); CALCIUM 9.4 mg/dL (8.5-10.1); CREATININE, SERUM 1.09 mg/dL (0.70-1.30); MAGNESIUM 2.5 mg/dL (1.8-2.4); POTASSIUM 4.3 mmol/L (3.5-5.1)
[2024-12-19 05:58] LABS: INR 1.21 (0.80-1.30); PROTIME 14.9 Sec (11.2-14.2)
--- NOTE | 2024-12-19 08:00 | NUR ---
PATIENT RESTING IN BED AT THIS TIME AND RATES HIS PAIN A 3/10, BUT DOES SAY IT HAS STARTED TO INCREASE IN INTENSITY. ASSESSMENT COMPLETE. BP THIS AM IS 159/120. PATIENT TO HAVE ECHO THIS AM. PT DENIES NEED FOR PAIN MEDICATION AT THIS TIME BUT REMINDED HIM THAT HE HAS IT AVAILABLE IF NEEDED. PT REMAINS IN AFIB. PT DENIES WANTING US TO CALL ANYONE OR NOTIFY ANYONE OF HIS HOSPITALIZATION.
[2024-12-19] MEDS ORDERED: lisinopriL 5 MG TAB PO SCH (09:00)
[2024-12-19] MEDS ORDERED: ENOXAPARIN SODIUM 80 MG/0.8 ML SYR SUB-Q SCH (09:00)
--- NOTE | 2024-12-19 09:22 | NUR ---
UR CLINICAL REVIEW: 2 MN ERINN, MEETS INPT FOR SPLENIC INFARCT, HYPERTENSIVE URGENCY IV MEDICATIONS, IV NICARDIPINE DRIP ON ADMIT, ECHO NEEDED, REPEAT IMAGING MEDICARE INPT 12/18/2024 @ 1512 ORDER MATCHES REG NO AUTH REQUIRED PER MEDICARE RULES PLAN TO DC TO HOME WHEN MEDICALLY STABLE.
--- NOTE | 2024-12-19 09:40 | NUR ---
PATIENT TAKEN DOWN TO CT SCAN VIA WHEELCHAIR. PATIENT TOLERATED WELL. PT REMAINS IN AFIB, HR 80-90s. PT STILL REPORTS PAIN IN ABDOMEN BUT DOES NOT FEEL IT IS BAD ENOUGH TO WARRANT PAIN MEDICATIONS. PT HAS TRANSFER ORDERS TO THE MEDICAL FLOOR.
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
--- NOTE | 2024-12-19 11:30 | NUR ---
PT C/O 04/12 LUQ ABD PAIN. MEDICATED WITH 5MG OXYCODONE. PT TRANSFERRED TO ROOM 119. ALL PERSONAL BELONGINGS BROUGHT WITH PATIENT. PT ORIENTED TO ROOM, CALL RASHEED. PT PLACED IN RECLINER CHAIR, LOCKED,CALL RASHEED IN REACH
--- NOTE | 2024-12-19 11:45 | NUR ---
DR. COLON INTO SEE PATIENT TO DISCUSS CT FINDINGS. 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 ONCOLOGY AND SURGERY IS TO SEE PATIENT TO DISCUSS FINDINGS AND NEXT STEPS WITH PATIENT. PT PROVIDED EMOTIONAL SUPPORT, SPIRITUAL CARE MADE AWARE OF PATIENT SITUATION. PT INSTRUCTED TO CALL FOR ASSISTANCE.
--- NOTE | 2024-12-19 11:50 | NUR ---
PATIENT TRANSFERRED TO ROOM 119 VIA CHAIR AT 1135. ALL PERSONAL BELONGINGS WERE TAKEN WITH PATIENT. DR. COLEMAN IN ROOM IN ROOM [address] SCAN RESULTS. REPORT GIVEN TO RO AMEZCUA RN WHO IS RESUMING CARE OF PATIENT. PATIENT REMAINS ON TELE #6, IN CHRONIC AFIB. PATIENT DID AGREE TO TAKE A PRN PAIN MEDICATION FOR HIS 8/10 PAIN. SEE EMAR.
[2024-12-19] MEDS ORDERED: chlorproMAZINE HCL 25 MG TAB PO SCH ×2 (12:00→12:30)
[2024-12-19] MEDS ORDERED: PHARMACY RENAL DOSE ADJUSTMENT 1 DOSE MISC PO SCH (12:00)
--- NOTE | 2024-12-19 13:00 | NUR ---
PT CONTINUES TO C/O PAIN TO ABDOMEN, ADMINISTERED 2MG MORPHINE IV. PT PLACED IN BED, SIDERAILS UP X2, CALL RASHEED IN REACH, BED IN LOW POSITION AND LOCKED. PT INSTRUCTED TO CALL FOR ASSISTANCE.
--- NOTE | 2024-12-19 15:00 | NUR ---
PT AWAKE, REPORTS PAIN RELIEF WITH MORPHINE. PT MEDICATED WITH THORAZINE FOR HICCUPS. NO ADDITIONAL C/O AT THIS TIME.
[2024-12-19] MEDS ORDERED: WARFARIN SOD 5 MG TAB PO SCH ×3 (16:00→18:00)
[2024-12-19] MEDS ORDERED: WARFARIN PER PHARMACY PROTOCOL PO SCH (16:00)
--- NOTE | 2024-12-19 16:30 | NUR ---
DR. FRANKLIN IN TO SEE PATIENT. PT PO INTAKE 10% OF EVENING MEAL. PROVIDED POPSICLE. PT REPORTS NO PAIN LONG HE IS NOT MOVING. PT REPORTS THORAZINE DID NOT STOP HICCUPS.
[2024-12-19] MEDS ORDERED: WARFARIN SOD 5 MG TAB PO ONE (18:30)
--- NOTE | 2024-12-19 18:34 | NUR ---
PT CARED FOR T/O SHIFT WITHOUT INCIDENT. PT MEDICATED X2 FOR PAIN WITH RELIEF. PT EXAMINED BY GI, NO PROCEDURES ANTICIPATED TO BE COMPLETED DURING THIS HOSPITALIZATION, PT REC'D EVENING DOSE OF COUMADIN. PT DOES NOT WANT TO HAVE FLUID RESTRICTION AND TOLERATING PO FLUIDS, HAS NOT BEEN USING URINAL. REINFORCED NEED TO HAVE ACCURATE I&O DURING HOSPITAL STAY, VERBALIZED UNDERSTANDING. PT RESTING IN BED, SIDERAILS UP X2, CALL RASHEED IN REACH, BED IN LOW POSITION AND LOCKED.
--- NOTE | 2024-12-19 19:10 | NUR ---
REPORT RECEIVED FROM DEDRA GOMEZ. pt RESTING IN THE BED WITH EYES CLOSED. BOARD UPDATED. CALL LIGHT WITHIN REACH. RR EVEN AND ULABORED.
--- NOTE | 2024-12-19 20:20 | NUR ---
ASSESSMENT AND VITAL SIGNS DONE. SCHEDULED MEDS ADMINISTERED. pt DENIES ANY PAIN AT THIS TIME. pt DENIES ANY OTHER NEEDS AT THIS TIME. CALL LIGHT WITHIN REACH. BOWEL TONES ARE ACTIVE.
--- NOTE | 2024-12-19 23:44 | NUR ---
pt RESTING IN THE BED WITH EYES CLOSED. RR EVEN AND UNLABORED. CALL LIGHT WITHIN REACH.
[2024-12-20] VITALS (11 sets, daily range): BP systolic 122–153; BP diastolic 79–111
--- NOTE | 2024-12-20 01:47 | NUR ---
PIERCING SPECIALIST OBTAINED VITALS AND I&O. PT STATES NO NEEDS AT THIS TIME. CALL LIGHT WITHIN REACH.
[2024-12-20 05:34] LABS: BASOPHILS 0.4 % (0-2); EOSINOPHILS 0.6 % (0-6); HEMATOCRIT 54.3 % (35.0-50.0); HEMOGLOBIN 18.9 g/dL (12.0-18.0); MCH 31.9 (27-36); MCHC 34.7 g/dl (30-36); MCV 91.9 fl (81-99); MONOCYTES 11.2 % (0-12); NEUTROPHILS 76.8 % (39-80); PLATELET COUNT 133 K/uL (140-440); RBC 5.92 M/ul (4.3-5.7)
[2024-12-20 05:44] LABS: ANION GAP 12.1 (7-21); BUN/CREATININE RATIO 14.04 (6.0-28.6); CALCIUM 8.9 mg/dL (8.5-10.1); CREATININE, SERUM 1.21 mg/dL (0.70-1.30); MAGNESIUM 1.9 mg/dL (1.8-2.4); POTASSIUM 4.1 mmol/L (3.5-5.1)
[2024-12-20 05:54] LABS: INR 1.96 (0.80-1.30); PROTIME 21.4 Sec (11.2-14.2)
--- NOTE | 2024-12-20 07:20 | NUR ---
REPORT REC'D FROM JASON PURI. PT IS RESTING IN BED, ONLY C/O PAIN WITH MOVEMENT.
[2024-12-20] MEDS ORDERED: lisinopriL 10 MG TAB PO SCH (09:00)
[2024-12-20] MEDS ORDERED: METOPROLOL TARTRATE 25 MG TAB PO ONE (09:00)
[2024-12-20] MEDS ORDERED: POLYETHYLENE GLYCOL 3350 1 PACKET PO ONE (09:15)
--- NOTE | 2024-12-20 10:46 | NUR ---
PATIENT REMAINS IN AFIB WITH MOVEMENT. URINAL WAS EMPTIED AND RINSED. PATIENT RETURNED TO BED AND ASKED TO BE LEFT TO SLEEP. NO OTHER CARES WERE REQUESTED. CALL LIGHT AND PERSONAL ITEMS ARE WITHIN REACH.
--- NOTE | 2024-12-20 12:15 | NUR ---
PT OFFERED SHOWER, PREFERS TO WAIT UNTIL AFTER LUNCH. PT WITHOUT C/O AT THIS TIME.
[2024-12-20] MEDS ORDERED: WARFARIN SOD 5 MG TAB PO SCH (16:00)
--- NOTE | 2024-12-20 16:27 | NUR ---
PT NO C/O PAIN T/O SHIFT.
--- NOTE | 2024-12-20 18:10 | NUR ---
PT CARED FOR T/O SHIFT WITHOUT C/O. PT REQUIRED NO PAIN MEDICATION. PT WAS NOTED TO HAVE ELEVATED HR THIS AM, AFIB UP TO 180'S, METOPROLOL DOSE INCREASE, PATIENT HAS BEEN 70'S 110'S.
--- NOTE | 2024-12-20 19:50 | NUR ---
REPORT RECEIVED FROM DAY SHIFT RN. PT RESTING IN BED. NO DISTRESS NOTED. PT EXPRESSED NO COMPLAINTS OR CONCERNS. CALL LIGHT WITHIN REACH. WILL CONTINUE TO MONITOR.
--- NOTE | 2024-12-20 20:10 | NUR ---
Pt assessed and medication given. Tele reading A-fib. VSS. Pt up independently in room. Pt denies any pain. Safety precautions maintained. Call light within reach. Will continue to monitor.
[2024-12-20] MEDS ORDERED: METOPROLOL TARTRATE 50 MG TAB PO SCH (21:00)
[2024-12-21 00:39] VITALS: BP 116/82
[2024-12-21 00:45] VITALS: BP 116/82
[2024-12-21 05:28] LABS: BASOPHILS 0.9 % (0-2); EOSINOPHILS 0.8 % (0-6); HEMATOCRIT 52.8 % (35.0-50.0); HEMOGLOBIN 18.4 g/dL (12.0-18.0); LYMPHOCYTES 14.8 % (24-44); MCH 32.2 (27-36); MCHC 34.9 g/dl (30-36); MCV 92.1 fl (81-99); MONOCYTES 12.5 % (0-12); PLATELET COUNT 123 K/uL (140-440); RBC 5.73 M/ul (4.3-5.7)
[2024-12-21 05:38] LABS: INR 2.22 (0.80-1.30); PROTIME 23.6 Sec (11.2-14.2)
[2024-12-21 05:44] LABS: BUN/CREATININE RATIO 21.23 (6.0-28.6); CALCIUM 8.8 mg/dL (8.5-10.1); CREATININE, SERUM 1.13 mg/dL (0.70-1.30)
[2024-12-21 05:58] VITALS: BP 140/97
[2024-12-21 06:01] VITALS: BP 140/97
--- NOTE | 2024-12-21 06:28 | NUR ---
PT RESTED WELL DURING THE SHIFT. VSS. TELE READING A-FIB. PT UP INDEPENDANTLY IN ROOM AND TO BATHROOM. SAFETY PRECAUTIONS MAINTAINED. CALL LIGHT WITHIN REACH. WILL CONTINUE TO MONITOR.
--- NOTE | 2024-12-21 07:23 | NUR ---
REPORT REC'D FROM THIAGO GOMEZ. TELEMETRY AFIB 60'S. NO ACUTE DISTRESS NOTED. INR 2.22
[2024-12-21 08:34] VITALS: BP 157/118
--- NOTE | 2024-12-21 08:57 | NUR ---
PATIENT IN BED AT THIS TIME. FURNACE PUNCHER CHARTED HOURLY ROUNDS. CALL LIGHT WITHIN REACH, NO FURTHER NEEDS AT THIS TIME.
[2024-12-21] MEDS ORDERED: METOPROLOL SUCCINATE 100 MG TABCR PO SCH (09:00)
[2024-12-21 09:19] VITALS: BP 157/118
--- NOTE | 2024-12-21 10:25 | NUR ---
PT RESTING QUIETLY IN BED. ANTICIPATING DISCHARGE TODAY. TELEMETRY DC'D. NO C/O VOICED
[2024-12-21] MEDS ORDERED: METOPROLOL SUC100 MG PO (11:08)
[2024-12-21] MEDS ORDERED: LISINOPRIL10 MG PO (11:08)
[2024-12-21] MEDS ORDERED: WARFARIN SODIUM5 MG PO (11:10)
--- NOTE | 2024-12-21 12:42 | NUR ---
PATIENT CLEARED FOR DISCHARGE, SEEN BY PHARMACY. PT PROVIDED WARFARIN DOSE FOR TODAY. PT WILL BUSINESS ANALYST [employer] [facility]. PT PROVIDED OUTSIDE MEDICAL RECORDS FOR F/U VISITS. DC INSTRUCTIONS REVIEWED, EXPLAINED TO CONTACT [facility] AND CASE MANAGEMENT FOR CONTINUED TREATMENT PLAN. PT VERBALIZED UNDERSTANDING.
[2024-12-21] MEDS ORDERED: WARFARIN SOD 3 MG TAB PO SCH (13:00)
== END 2024-12-21 13:07 | disposition home or self-care (01) | DRG 815 ==
LOC: ED 08:32 → CCU 15:16 → MS 12-19 11:58
PROVIDERS: Emergency Medicine; ADMIT Student in an Organized Health Care Education/Training Program; ATTEND Student in an Organized Health Care Education/Training Program
DX: D73.5 Infarction of spleen (principal); I50.22 Chronic systolic (congestive) heart failure; I16.0 Hypertensive urgency; I48.91 Unspecified atrial fibrillation; K86.89 Other specified diseases of pancreas; R91.1 Solitary pulmonary nodule; K22.89 Other specified disease of esophagus; I71.40 Abdominal aortic aneurysm, without rupture, unspecified; I51.3 Intracardiac thrombosis, not elsewhere classified; D75.1 Secondary polycythemia; I11.0 Hypertensive heart disease with heart failure; J44.9 Chronic obstructive pulmonary disease, unspecified; F17.210 Nicotine dependence, cigarettes, uncomplicated; K44.9 Diaphragmatic hernia without obstruction or gangrene; K57.90 Diverticulosis of intestine, part unspecified, without perforation or abscess without bleeding; G89.11 Acute pain due to trauma; Z98.890 Other specified postprocedural states; Z91.148 Patient's other noncompliance with medication regimen for other reason; Z86.73 Personal history of transient ischemic attack (TIA), and cerebral infarction without residual deficits; Z79.899 Other long term (current) drug therapy; Z79.01 Long term (current) use of anticoagulants
CPT/HCPCS: 36415; 71045; 71260; 74175; 74177; 80048; 80053; 80307; 83605; 83690; 83735; 83880; 84484; 85025; 85610; 93005; 93010; 93306; A9270; G0480; J1650; J1940; J2270; J2470; J3475; J7040; J7060; Q9967